=== PATIENT | male | born 1940 | race Caucasian/White ===

== ENCOUNTER 2017-04-18 16:05 | Emergency (ER) | payer BC, MEDICARE ==
[2017-04-18] MEDS ORDERED: Morphine INJ* 4 MG/ML 1 ML SYRINGE (NEW SYRINGE VERSION) IV ONE (17:03)
[2017-04-18] MEDS ORDERED: Diazepam TAB(*) 5 MG PO ONE ×2 (17:03→21:03)
[2017-04-18] MEDS ORDERED: predniSONE TAB* 20 MG PO ONE (17:21)
[2017-04-18] MEDS ORDERED: oxyCODONE/Acetamin 5/325 MG* TAB PO ONE ×2 (17:25→21:02)
[2017-04-18 17:27] LABS: Hematocrit 42 % (42-52); Hemoglobin 14.4 g/dl (14.0-18.0); INR 1.25 (0.77-1.02); Mean Corpuscular HGB Conc 34 g/dl (31-36); Mean Corpuscular Hemoglobin 33 pg (27-31); Mean Corpuscular Volume 97 fL (80-94); Mean Platelet Volume 7 um3 (7.4-10.4); Platelet Count 317 10^3/ul (150-450); Red Blood Count 4.37 10^6/ul (4.0-5.4); Red Cell Distribution Width 14 % (10.5-15); White Blood Count 24.7 10^3/ul (3.5-10.8)
[2017-04-18 18:00] LABS: ABS Basophils 0.1 10^3/ul (0-0.2); ABS Eosinophils 0 10^3/ul (0-0.6); ABS Lymphocytes 0.4 10^3/ul (1.0-4.8); ABS Monocytes 2.4 10^3/ul (0-0.8); ABS Neutrophils 21.9 10^3/ul (1.5-7.7); ABS Nucleated RBC 0 10^3/ul; Eosinophil % 0 % (0-6); Lymphocyte % 1.6 % (25-47); Nucleated Red Blood Cells % 0.1
[2017-04-18 18:40] LABS: Urine Appearance Cloudy; Urine Blood Negative (Negative); Urine Color Amber; Urine Ketones Negative (Negative); Urine Protein 2+(100 mg/dL) (Negative); Urine Specific Gravity 1.024 (1.010-1.030); Urine Urobilinogen Positive (Negative)
[2017-04-18] MEDS ORDERED: oxyCODONE/Acetamin 5/325 MG* TAB ONE (21:04)
[2017-04-18] MEDS ORDERED: Diazepam TAB(*) 5 MG ONE (21:05)
[2017-04-18 21:07] VITALS: BP 120/59
--- NOTE | 2017-04-18 23:20 | ED ---
Jay Ceballos Stephanie, scribed for Binta Pantoja MD on 04/18/17 at 1657 . Back Pain - HPI Summary HPI Summary: The pt is a 76 y/o M presenting to the ED with c/o back pain that began on . Symptoms include LE weakness. The pt had MRI done on Wednesday for back pain by Dr Serrano. The pt fell on ice 4 weeks ago. The pt was on steroids since 04/15. - History of Current Complaint Chief Complaint: EDBackInjuryPain Stated Complaint: BACK PAIN Time Seen by Provider: 04/18/17 16:14 Hx Obtained From: Patient Onset/Duration: Gradual Onset, Lasting Days, Still Present Onset/Duration: Started Days Ago Timing: Constant Severity Currently: Severe Pain Intensity: 9 Pain Scale Used: 0-10 Numeric Aggravating Symptom(s): Movement Alleviating Symptom(s): Nothing - Allergies/Home Medications Allergies/Adverse Reactions: Allergies Allergy/AdvReac Type Severity Reaction Status Date / Time amoxicillin Allergy Intermediate Rash Verified 04/18/17 16:24 celecoxib [From Celebrex] Allergy Intermediate Rash Verified 04/18/17 16:24 latex Allergy Intermediate Rash Verified 04/18/17 16:24 Home Medications: Home Medications Amlodipine Besylate [Norvasc 10 mg tab] 10 mg PO DAILY 04/18/17 [History Confirmed 04/18/17] Multivitamin [Multivitamins] 1 cap PO DAILY 04/18/17 [History Confirmed 04/18/17 ] Nebivolol (NF) [Bystolic (NF)] 10 mg PO QAM 04/18/17 [History Confirmed 04/18/17 ] Potassium Chloride [Klor-Con M20] 20 meq PO BID 04/18/17 [History Confirmed ] diPHENhydraMINE PO* [Benadryl PO 25 MG TAB*] 25 mg PO BEDTIME PRN 04/18/17 [ History Confirmed 04/18/17] PMH/Surg Hx/FS Hx/Imm Hx Previously Healthy: No - Impotence of organic origin Endocrine/Hematology History: Reports: Hx Anticoagulant Therapy Denies: Hx Diabetes Cardiovascular History: Reports: Hx Hypercholesterolemia, Hx Hypertension Denies: Hx Pacemaker/ICD Respiratory History: Reports: Hx Sleep Apnea - witnessed, not diagnosed Denies: Hx Chronic Obstructive Pulmonary Disease (COPD) GI History: Reports: Hx Diverticulosis - colon resection-- 6 yrs ago, Other GI Disorders - HX OF COLECTOMY X 2 FOR RUPTURED INTESTINES AND 1 FOR CANCER, History: Denies: Hx Dialysis, Hx Kidney Stones, Hx Renal Disease Musculoskeletal History: Reports: Hx Arthritis - LEFT KNEE, LEFT HIP REPLACEMENT , RIGHT HIP ARTHRITIS, right hip 07/11 arthro Sensory History: Reports: Hx Cataracts - BILATERAL, Hx Contacts or Glasses - READING GLASSES Denies: Hx Hearing Aid Opthamlomology History: Reports: Hx Cataracts - BILATERAL, Hx Contacts or Glasses - READING GLASSES Neurological History: Reports: Other Neuro Impairments/Disorders - CLAUSTAPHOBIC Denies: Hx Dementia, Hx Seizures Psychiatric History: Reports: Other Psychiatric Issues/Disorders - CLAUSTAPHOBIC Denies: Hx Panic Disorder - Cancer History Cancer Type, Location and Year: colon mass with resection--?2006 Hx Chemotherapy: No Hx Radiation Therapy: No - Surgical History Surgery Procedure, Year, and Place: 2006? [place] [facility] [place] [facility] 2007 LEFT HIP REPLACEMENT, [facility]. RIGHT HAND SURGERY TRIGGER FINGER [place] CARPAL TUNNEL [place] [facility] [place] hip replace 06/2012. 06/2012 right hip replacement [facility]. LAPAROS[place]IC [place] [facility] [place] [facility] [place] BILATERAL CATARACT SURGERY WITH IOL IMPLANTS Hx Anesthesia Reactions: No Infectious Disease History: No Infectious Disease History: Denies: Traveled Outside the [place] in Last 30 Days - Family History Known Family History: Positive: Other - stroke, [place] - Social History Occupation: Retired Lives: With Family Alcohol Use: Daily Alcohol Amount: a few beers a day Substance Use Type: Reports: None Smoking Status (MU): Never Smoked Tobacco - Additional Comments History Additional Comments: benighn prostatic hypertrophy without outflow obstruction, pure hypercholesterolemia, impaired fasting glycaemia, bleeding diverticulosis, hx of malignant neoplasm of rectum, benign essential HTN, gout, basal cell carcinoma of skin of other parts of face Review of Systems Negative: Fever Positive: Other - back pain, LE weakness All Other Systems Reviewed And Are Negative: Yes Physical Exam - Summary Physical Exam Summary: Appearance: Ill-appearing, moderate pain distress, Well-nourished Skin: Warm, color reflects adequate perfusion Head: Normal Head/Face inspection Eyes: Conjunctiva clear ENT: Normal inspection Neck: Supple, no nodes, no JVD. Respiratory: Lungs clear, Normal breath sounds, no respiratory distress Cardio: RRR, No murmur, pulses normal, brisk capillary refill Abdomen: soft, nontender Bowel sounds: present Musculoskeletal: Strength Intact/ ROM intact. No calf tenderness. No edema. , pain in lower back Neuro: Alert, muscle tone normal, facial symmetry, speech normal, sensory/motor intact, unsteady on feet, absent reflexes in knees Psychological: Normal Triage Information Reviewed: Yes Vital Signs On Initial Exam: Initial Vitals Temp Pulse Resp BP Pulse Ox 99.3 F 66 14 152/73 96 04/18/17 16:17 04/18/17 16:17 04/18/17 16:17 04/18/17 16:17 04/18/17 16:17 Vital Signs Reviewed: Yes Diagnostics - Vital Signs Vital Signs Temp Pulse Resp BP Pulse Ox 04/18/17 16:17 99.3 F 66 14 152/73 96 - Laboratory Result Diagrams: 04/18/17 17:12 Lab Statement: Any lab studies that have been ordered have been reviewed, and results considered in the medical decision making process. Back Pain Course/Dx - Diagnoses Provider Diagnoses: Lumbar spinal stenosis Discharge - Discharge Plan Condition: Stable Disposition: HOME Prescriptions: Diazepam TAB(*) [Valium TAB(*)] 5 mg PO Q6H PRN #12 tab MDD 4 PRN Reason: Pain methylPREDNISolone [Medrol] 4 mg PO .SEE GRACE INSTRUCTION #1 tab.ds.pk oxyCODONE/Acetamin 5/325 MG* [Percocet 5/325 TAB*] 1 tab PO Q4H PRN #18 tab MDD 6 PRN Reason: Pain Patient Education Materials: Lumbar Spinal Stenosis (ED) Referrals: Manuel Rao MD [Primary Care Provider] - 3 Days Additional Instructions: We gave you percocet 5/325mg, valium 5mg and prednisone 60mg while you were in the ER with relief of your symptoms. We gave you a copy of your labs. Your white blood cell count is very elevated. RETURN TO THE ER FOR ANY NEW OR WORSENING SYMPTOMS The documentation as recorded by the Jay carter Stephanie accurately reflects the service I personally performed and the decisions made by , Binta Pantoja MD.
== END 2017-04-18 21:13 | disposition home or self-care (01) ==
LOC: ED 16:05
DX: M48.061 Spinal stenosis, lumbar region without neurogenic claudication (principal); Z88.3 Allergy status to other anti-infective agents
CPT/HCPCS: 36415; 81003; 81015; 83735; 85025; 85610; 86140; 99283; A9270-GY; J7512

== ENCOUNTER 2017-04-21 04:20 | Inpatient (IN) | payer BC, MEDICARE ==
[2017-04-21] MEDS ORDERED: Vancomycin(*) 1,000 MG in NS 0.9% 250 ML* 250 ML IVPB ONE ×3 (04:55→16:00)
[2017-04-21] MEDS ORDERED: fentaNYL* 50 MCG/ML 2 ML VIAL (100 MCG VIAL) IV SLOW PU ONE ×3 (04:55→11:14)
[2017-04-21] MEDS ORDERED: Diazepam SYRINGE* 5 MG/ML 2 ML SYRINGE (10 MG total) IV ONE (04:55)
[2017-04-21] MEDS ORDERED: Ondansetron INJ* 2 MG/ML VIAL IV ONE (04:55)
[2017-04-21] MEDS ORDERED: Acetaminophen TAB* 325 MG PO ONE (04:56)
[2017-04-21 05:02] LABS: Hematocrit 44 % (42-52); Hemoglobin 14.8 g/dl (14.0-18.0); Mean Corpuscular HGB Conc 34 g/dl (31-36); Mean Corpuscular Hemoglobin 33 pg (27-31); Mean Corpuscular Volume 97 fL (80-94); Mean Platelet Volume 8 um3 (7.4-10.4); Platelet Count 384 10^3/ul (150-450); Red Blood Count 4.53 10^6/ul (4.0-5.4); Red Cell Distribution Width 15 % (10.5-15); White Blood Count 33.1 10^3/ul (3.5-10.8)
[2017-04-21] MEDS ORDERED: NS 0.9% 250 ML* 250 ML ONE (05:08)
[2017-04-21 05:13] LABS: INR 1.24 (0.77-1.02)
[2017-04-21 05:15] LABS: EGFR Non-African American 83.6 (>60)
[2017-04-21] MEDS ORDERED: Hydrocortisone INJ* 100 MG VIAL IV ONE (05:33)
[2017-04-21 05:34] LABS: ABS Basophils 0 10^3/ul (0-0.2); ABS Eosinophils 0 10^3/ul (0-0.6); ABS Lymphocytes 0.5 10^3/ul (1.0-4.8); ABS Neutrophils 30.5 10^3/ul (1.5-7.7); ABS Nucleated RBC 0 10^3/ul; Eosinophil % 0 % (0-6); Lymphocyte % 1.4 % (25-47); Nucleated Red Blood Cells % 0
[2017-04-21] MEDS: NS 0.9% 1000 ML* 2,000 ML IV ONE ×2 (05:34→06:25)
[2017-04-21] MEDS ORDERED: cefTRIAXone(*) 2 GM in NS 0.9% 100 ML* 100 ML IVPB ONE (05:38)
[2017-04-21] MEDS ORDERED: Diazepam INJ (NF) 5 MG/ML 10 ML VIAL (50 MG TOTAL) IV ONE (06:00)
[2017-04-21] MEDS ORDERED: Vancomycin(*) 1,000 MG BAG/ADDV IVPB ONE (06:14)
[2017-04-21] MEDS ORDERED: fentaNYL* 50 MCG/ML 2 ML VIAL (100 MCG VIAL) ONE (06:48)
--- NOTE | 2017-04-21 06:59 | ED ---
Jose Ceballos Angela, scribed for Francisca Lake MD on 04/21/17 at 0451 . Back Pain - HPI Summary HPI Summary: This pt is a 76 y/o male presenting to [facility] c/o back pain x6 days, worse today. He notes his pain radiates down both legs. Today since supper time pt was not able to walk secondary to pain. denies urinary or bowel dysfunction , fever, chills, weakness in LE. He is currently on diazepam, Prednisone (2nd day yesterday), and Percocet. Pt notes he has no pain relief from these medications. Pt was in the ED 3 days ago for the same and had an IV on right arm. He notes his right arm is now painful and swollen. Pt walked with a walker slowly yesterday to Dr. Melendrez's office for an appointment. He is going to be scheduled for 2 MRIs and an XR. PMHx: basal cell CA. Temperature in the ED was 100.8 F. - History of Current Complaint Stated Complaint: BACK PAIN Time Seen by Provider: 04/21/17 04:22 Hx Obtained From: Patient Onset/Duration: Lasting Days, Still Present Onset/Duration: Started Days Ago, Still Present Timing: Constant, Lasting Days Back Pain Location: Is Discrete @ - back pain Severity Currently: Severe Pain Intensity: 10 Pain Scale Used: 0-10 Numeric Aggravating Symptom(s): Movement, Walking Associated Signs And Symptoms: Negative: Weakness, Abdominal Pain, Bladder Incontinence, Bowel Incontinence - Allergies/Home Medications Allergies/Adverse Reactions: Allergies Allergy/AdvReac Type Severity Reaction Status Date / Time amoxicillin Allergy Intermediate Rash Verified 04/21/17 04:54 celecoxib [From Celebrex] Allergy Intermediate Rash Verified 04/21/17 04:54 latex Allergy Intermediate Rash Verified 04/21/17 04:54 Home Medications: Home Medications Lovastatin(NF) [Mevacor(NF)] 20 mg PO 1700 04/21/17 [History Confirmed 04/21/17] PMH/Surg Hx/FS Hx/Imm Hx Endocrine/Hematology History: Reports: Hx Anticoagulant Therapy Denies: Hx Diabetes Cardiovascular History: Reports: Hx Hypercholesterolemia, Hx Hypertension Denies: Hx Pacemaker/ICD Respiratory History: Reports: Hx Sleep Apnea - witnessed, not diagnosed Denies: Hx Chronic Obstructive Pulmonary Disease (COPD) GI History: Reports: Hx Diverticulosis - colon resection-- 6 yrs ago, Other GI Disorders - HX OF COLECTOMY X 2 FOR RUPTURED INTESTINES AND 1 FOR CANCER, History: Denies: Hx Dialysis, Hx Kidney Stones, Hx Renal Disease Musculoskeletal History: Reports: Hx Arthritis - LEFT KNEE, LEFT HIP REPLACEMENT , RIGHT HIP ARTHRITIS, right hip 07/11 arthro Sensory History: Reports: Hx Cataracts - BILATERAL, Hx Contacts or Glasses - READING GLASSES Denies: Hx Hearing Aid Opthamlomology History: Reports: Hx Cataracts - BILATERAL, Hx Contacts or Glasses - READING GLASSES Neurological History: Reports: Other Neuro Impairments/Disorders - CLAUSTAPHOBIC Denies: Hx Dementia, Hx Seizures Psychiatric History: Reports: Other Psychiatric Issues/Disorders - CLAUSTAPHOBIC Denies: Hx Panic Disorder - Cancer History Cancer Type, Location and Year: colon mass with resection--?2006. basal cell carcinoma of skin Hx Chemotherapy: No Hx Radiation Therapy: No - Surgical History Surgery Procedure, Year, and Place: 2006? COLON RESECTION, [facility] [place]. 2005 LEFT KNEE REPLACEMENT, [facility] [place]. 2007 LEFT HIP REPLACEMENT, [facility] [place]. RIGHT HAND SURGERY TRIGGER FINGER AND CARPAL TUNNEL RELEASE, [facility] [place]. right hip replace 06/2012. 06/2012 right hip replacement [facility]. LAPAROSCOPIC CHOLECYSTECTOMY, [facility] [place]. 2ND COLON RESECTION, [facility] [place]. 05/2012 BILATERAL CATARACT SURGERY WITH IOL IMPLANTS Hx Anesthesia Reactions: No - Family History Known Family History: Positive: Other - stroke, [place] - Social History Alcohol Use: Daily Alcohol Amount: a few beers a day Substance Use Type: Reports: None Smoking Status (MU): Never Smoked Tobacco Review of Systems Positive: Fever. Negative: Chills Eyes: Negative ENT: Negative Cardiovascular: Negative Negative: incontinence Musculoskeletal: Other - back pain radiating down both legs, right arm pain Negative: Weakness All Other Systems Reviewed And Are Negative: Yes Physical Exam - Summary Physical Exam Summary: VITAL SIGNS: Reviewed. GENERAL: Patient is a well-developed and nourished male who is lying comfortable in the stretcher. Patient is not in any acute respiratory distress. HEAD AND FACE: No signs of trauma. No ecchymosis, hematomas or skull depressions. No sinus tenderness. EYES: PERRLA, EOMI x 2, No injected conjunctiva, no nystagmus. EARS: Hearing grossly intact. Ear canals and tympanic membranes are within normal limits. MOUTH: Oropharynx within normal limits. NECK: Supple, trachea is midline, no adenopathy, no JVD, no carotid bruit, no c- spine tenderness, neck with full ROM. CHEST: Symmetric, no tenderness at palpation LUNGS: Clear to auscultation bilaterally. No wheezing or crackles. CVS: Regular rate and rhythm, S1 and S2 present, no murmurs or gallops appreciated. ABDOMEN: Soft, non-tender. No signs of distention. No rebound no guarding, and no masses palpated. Bowel sounds are normal. MSK: No cyanosis or clubbing. RUE: Tender and swollen area over the right upper arm medially consistent with cellulitis. There is lumbosacral tenderness. Pt is unable to move legs secondary to pain. NEURO: Alert and oriented x 3. Neurological exam is grossly intact. No acute neurological deficits. Speech is normal and follows commands. SKIN: Dry and warm Triage Information Reviewed: Yes Vital Signs Reviewed: Yes Diagnostics - Laboratory Result Diagrams: 04/21/17 04:40 04/21/17 04:40 Lab Statement: Any lab studies that have been ordered have been reviewed, and results considered in the medical decision making process. - Radiology Chest XR Xray Interpretation: Positive (See Comments) - Possible cardiomegaly. No acute process. Radiology Interpretation Completed By: ED Physician, Radiologist - pending official radiology report Back Pain Course/Dx - Course Course Of Treatment: Pt is a 76 y/o male who presents with back pain x6 days, worsening today. He notes his pain radiates down both legs. In the ED course, the pt was given IV fluids, Tylenol, valium, fentanyl, Zofran, vancomycin, Hydrocortisone, Rocephin. Labs show WBC of 33.1, BUN of 43, glucose of 167, AST of 63, ALT of 190. Chest XR shows possible cardiomegaly, no acute process. Pending offical radiology report. Pt will be signed out to Dr. Mccarthy, pending admission to the hospitalist. - Diagnoses Provider Diagnoses: Severe low back pain, Cellulitis of right upper arm Discharge - Discharge Plan Condition: Stable Disposition: OTHER Discharge Disposition Comment: sign out to Dr. Mccarthy, pending admission to the hospitalist. Referrals: Manuel Rao MD [Primary Care Provider] - The documentation as recorded by the Jose carter Angela accurately reflects the service I personally performed and the decisions made by me, Francisca Lake MD.
--- NOTE | 2017-04-21 08:22 | RAD ---
Indication: Fever. Shortness of breath. Comparison: July 23, 2012 Technique: Upright AP 0551 hours Report: Suboptimal inspiration with associated subsegmental atelectasis. Probable small dependent pleural effusions. Cardiomegaly. Mild prominence of interstitial markings. No gross abnormality of the central pulmonary vasculature however suboptimal inspiration limits assessment. Negative for pneumothorax. IMPRESSION: Hypoventilated exam with subsegmental atelectasis. Probable small pleural effusions. Inflammatory infiltrates at the lung bases are not entirely excluded on the basis of this exam. Cardiomegaly.
--- NOTE | 2017-04-21 08:34 | RAD ---
HISTORY: Right upper quadrant pain COMPARISONS: November 07, 2007 TECHNIQUE: Multiple transverse and longitudinal ultrasound images were obtained of the right upper quadrant of the abdomen using grayscale and color Doppler imaging. FINDINGS: LIVER: The liver is normal in shape, size, contour, and echogenicity. There are no focal parenchymal masses. There is normal hepatopedal flow of the portal vein on Doppler imaging. BILIARY TREE: There is no intrahepatic or extrahepatic biliary dilatation. The common duct measures 0.9 cm. GALLBLADDER: The patient is status post cholecystectomy. PANCREAS: The head of the pancreas is unremarkable. The tail of the pancreas is not well visualized secondary to overlying bowel gas. RIGHT KIDNEY: The right kidney is normal in shape, size, contour, and echogenicity. There is no hydronephrosis or nephrolithiasis. The right kidney measures 11.8 x 6.2 x 6.5 cm. AORTA AND IVC: The aorta and IVC are unremarkable. FLUID: There are no pleural effusions. There is no free fluid within the hepatorenal recess. OTHER FINDINGS: None. IMPRESSION: 1. STATUS POSTCHOLECYSTECTOMY. 2. THE COMMON DUCT IS ECTATIC MEASURING UP TO 0.9 CM. THERE IS NO INTRAHEPATIC BILIARY DILATATION.
--- NOTE | 2017-04-21 12:44 | RAD ---
Indication: Jaundice. Image sequences: Axial T2 fat sat, coronal T2, 3-D MRCP images of the biliary system was performed. Lung bases demonstrate atelectasis in the right lung base with small pleural effusions. Cardiomegaly without evidence pericardial effusion. Liver is normal in size. Common duct measures up to 7 mm likely due to postcholecystectomy state of the patient. No filling defects are noted. The pancreatic duct is normal in caliber. No abrupt termination is noted. The visualized abdominal organs are unremarkable. IMPRESSION: Prominent common duct likely due to postcholecystectomy state of the patient. Patient is status post cholecystectomy.
[2017-04-21] MEDS ORDERED: HYDROmorphone INJ* 1 MG/ML CARPUJECT SYRINGE IV ONE (13:12)
[2017-04-21] MEDS ORDERED: oxyCODONE/Acetamin 5/325 MG* TAB PO PRN (14:47)
[2017-04-21] MEDS ORDERED: Diazepam TAB(*) 5 MG PO PRN (14:50)
[2017-04-21] MEDS ORDERED: Acetaminophen TAB* 325 MG PO PRN (15:36)
[2017-04-21] MEDS ORDERED: Vancomycin per Pharmacy* NOTE FOLLOW UP PRN (15:38)
[2017-04-21] MEDS ORDERED: Gadoteridol* (CONTRAST) 279.3 MG/ML 10 ML IV ONE (15:38)
--- NOTE | 2017-04-21 16:00 | RAD ---
INDICATION: Confusion COMPARISON: CT brain July 18, 2012 TECHNIQUE: Noncontrast axial source images were acquired from the skull base to the vertex. FINDINGS: Ventricles/sulci: There is cortical atrophy with compensatory dilatation of the CSF spaces. Brain parenchyma: There is periventricular and subcortical white matter change compatible with chronic ischemia. Intracranial hemorrhage:None. Extra-axial spaces: There are no abnormal extra axial fluid collections or evidence of extra-axial mass. Calvarium: There is no calvarial fracture or other calvarial abnormality. Scalp: There is no evidence of scalp or extracalvarial soft tissue abnormality. Paranasal sinuses/mastoid: The paranasal sinuses and mastoid air cells are clear. Other: None. IMPRESSION: No acute intracranial findings
[2017-04-21 16:13] LABS: EGFR Non-African American 124.5 (>60)
[2017-04-21] MEDS: HYDROmorphone INJ* 2 MG/ML CARPUJECT SYRINGE IV SLOW PU PRN (16:27)
[2017-04-21] MEDS: NS 0.9% 1000 ML* 1,000 ML IV SCH (16:27)
[2017-04-21] MEDS: methylPREDNISolone SOD 40 MG* 1 ML VIAL IV SCH (16:28)
--- NOTE | 2017-04-21 18:12 | ED ---
Tucker, Lolly Valles, scribed for Romario Mccarthy MD on 04/21/17 at 0839 . Progress - Progress Note Progress Note: The patient is a sign out from Dr. Lake pending admission by hospitalist. Abdominal Ultrasound. Interpreted by a radiologist. IMPRESSION: 1. STATUS POSTCHOLECYSTECTOMY. 2. THE COMMON DUCT IS ECTATIC MEASURING UP TO 0.9 CM. THERE IS NO INTRAHEPATIC BILIARY DILATATION. Dr. Mccarthy has reviewed this report. Cholangiopancreatography MRI. Interpreted by a radiologist. IMPRESSION: Prominent common duct likely due to postcholecystectomy state of the patient. Patient is status post cholecystectomy. Dr. Mccarthy has reviewed this report. Course/Dx - Course Course Of Treatment: Pt is a 76 y/o male who presents with back pain x6 days, worsening today. He notes his pain radiates down both legs. In the ED course, the pt was given IV fluids, Tylenol, valium, fentanyl, Zofran, vancomycin, Hydrocortisone, Rocephin. Labs show WBC of 33.1, BUN of 43, glucose of 167, AST of 63, ALT of 190. Chest XR shows possible cardiomegaly, no acute process. Abdominal US shows 1. STATUS POSTCHOLECYSTECTOMY. 2. THE COMMON DUCT IS ECTATIC MEASURING UP TO 0.9 CM. THERE IS NO INTRAHEPATIC BILIARY DILATATION. Cholangiopancreatography MRI showed prominent common duct likely due to postcholecystectomy state of the patient. Pt is diagnosed with Intractable back pain and Elevated transaminase level. When I evaluated Mr. Bonilla at 0715, he was C/O low back pain mostly. He did admit to some abdominal pain and had some diffuse tenderness and I was concerned about his transaminase elevations and elevated bilirubin. If he had a common bile duct stone, he would need to be transferred as we cannot get a ERCP here. U/S was obtained and showed only a mildly dilated duct. I spoke with Dr. Matias from GI who recommended an MRCP. That was also negative so the hospitalist service was contacted for admission. - Diagnoses Provider Diagnoses: Intractable back pain, Elevated transaminase level The documentation as recorded by the Hai carter Jennifer accurately reflects the service I personally performed and the decisions made by me, Romario Mccarthy MD.
[2017-04-21] MEDS ORDERED: Zosyn per Pharmacy* NOTE FOLLOW UP PRN (18:32)
--- NOTE | 2017-04-21 20:49 | RAD ---
HISTORY: Low back pain, sepsis, rule out epidural abscess COMPARISONS: None TECHNIQUE: The following sequences were obtained of the thoracic spine: Sagittal and axial T1- and T2-weighted images, coronal T2-weighted images, and sagittal STIR images. Additionally, axial and sagittal T1 weighted images were obtained after contrast enhancement with a gadolinium-based intravenous contrast agent.. FINDINGS: The study is limited by patient motion artifact. Localization is based on counting from C2 SPINAL CORD, CONUS, AND CAUDA EQUINA: There is a posterior epidural fluid collection extending from the cervical spine, at approximately C6-C7 based on the localizing images, inferiorly through to the lumbar spine further described on the MRI of the lumbar spine. This is peripherally enhancing and measures up to 0.6 cm in depth and is most consistent with a large epidural abscess. This results in mild to moderate narrowing of the central canal diffusely. ALIGNMENT: The alignment is normal. VERTEBRAL BODIES: There is multilevel anterolateral marginal osteophyte formation. There is Modic type II reactive endplate changes at T6-T7 and T10-T11. JOINTS: There is enhancement along the costovertebral articulations on the left at T10-T11 and T11-T12. There is osteoporosis of the costovertebral articulations. MUSCULATURE: There is moderate fatty infiltration INTERVERTEBRAL DISCS: There is diffuse loss of intervertebral disc height and T2 signal throughout the spine. AXIAL IMAGES: As noted above, there is fusiform narrowing of the central canal secondary to the posterior epidural fluid collection. SOFT TISSUES: The visualized soft tissues of the chest and upper abdomen are unremarkable. OTHER: None. IMPRESSION: 1. THERE IS A POSTERIOR EPIDURAL ABSCESS EXTENDING FROM THE LOWER CERVICAL SPINE THROUGHOUT THE THORACIC SPINE, RESULTING IN MILD TO MODERATE NARROWING OF THE CENTRAL CANAL DIFFUSELY. 2. THERE ARE NO FINDINGS TO SUGGEST VERTEBRAL BODY OSTEOMYELITIS/DISCITIS. THERE IS ENHANCEMENT OF THE COSTOVERTEBRAL ARTICULATIONS ON THE LEFT AT T8 10-11 AND T11-T12 WHICH MAY INDICATE A SEPTIC ARTHRITIS A SOURCE OF EPIDURAL ABSCESS. THIS IS ALSO SUPPORTED BY THE POSTERIOR CONFIGURATION OF THE ABSCESS.
--- NOTE | 2017-04-21 20:56 | RAD ---
HISTORY: Back pain, sepsis, rule out abscess COMPARISONS: MRI of the thoracic spine dated April 21, 2017, MRI of the lumbar spine dated April 16, 2017 TECHNIQUE: The following sequences were obtained of the lumbar spine: Sagittal and axial T1- and T2-weighted images, coronal T2-weighted images, and sagittal STIR images. Additionally, axial and sagittal T1 weighted images were obtained after contrast enhancement with a gadolinium-based intravenous contrast agent.. FINDINGS: SPINAL CORD, CONUS, AND CAUDA EQUINA: As noted on the thoracic spine MRI, there is a epidural fluid collection along the posterior lateral aspect of the central canal. Additionally at the level of L1-L4, there is an anterior collection that is also peripheral enhancing. This results in fusiform moderate to severe narrowing of the central canal. ALIGNMENT: The alignment is normal. VERTEBRAL BODIES: There is multilevel anterolateral marginal osteophyte formation. There are mixed Modic type I and type II reactive endplate changes. JOINTS: There is diffuse facet osteoarthritis. There is enhancement and edema along the facet joints, most pronounced at L4-L5 and L5-S1 bilaterally. MUSCULATURE: There is moderate fatty infiltration. INTERVERTEBRAL DISCS: There is diffuse loss of intervertebral disc height and T2 signal throughout the spine. AXIAL IMAGES: As noted above, there is fusiform narrowing of the central canal secondary to the epidural fluid collections resulting in diffuse moderate to severe narrowing of the central canal. There is moderate to severe bilateral neural foraminal narrowing at L3-L4, L4-L5, and L5-S1 secondary to facet osteoarthritis. SOFT TISSUES: There is heterogeneous enhancement and edema of the multifidus muscles at L4-L5. OTHER: None. IMPRESSION: 1. NOTED ON THE MRI OF THE THORACIC SPINE, THERE THERE IS AN EPIDURAL FLUID COLLECTION MOST CONSISTENT WITH EPIDURAL ENHANCEMENT. IN THE LUMBAR SPINE, THE EPIDURAL COLLECTION HAS COMPONENTS BOTH ANTERIOR AND POSTERIOR, RESULTING IN FUSIFORM MODERATE TO SEVERE NARROWING OF THE CENTRAL CANAL. 2. ADDITIONALLY, THERE IS ENHANCEMENT AND EDEMA OF THE FACET JOINTS AT L4-L5 AND L5-S1, WITH HETEROGENEOUS ENHANCEMENT OF THE MULTIPURPOSE MUSCLES AT THE ACCOMPANYING LEVELS. THIS AGAIN SUGGESTS A MULTIFOCAL SEPTIC ARTHRITIS THE SOURCE OF INFECTION WITH ASSOCIATED CELLULITIS/PHLEGMON OF THE PARASPINAL MUSCULATURE. THERE ARE NO FINDINGS TO SUGGEST DISCITIS THE SOURCE OF INFECTION ON THE CURRENT EXAMINATION.
--- NOTE | 2017-04-21 21:41 | HP ---
CC: Dr. Rao; Dr. Melendrez, Neurosurgery * HISTORY AND PHYSICAL: DATE OF ADMISSION: 04/21/17 PRIMARY CARE PROVIDER: Dr. Rao. CHIEF COMPLAINT: Lower back pain. HISTORY OF PRESENT ILLNESS: Sandeep Bonilla is a 76-year-old male with a history of hypertension and gout who has had problems with lower back pain for the past week and a half. On 04/18/17, he was seen in the emergency department and was noted to have sciatica for which he was prescribed Medrol Dosepak, Percocet, Valium. During that time, he was also noted to have WBC level of 24,000. His C -reactive protein level at that point was 112. Please note that Dr. Melendrez saw the patient for a followup yesterday and ordered an additional MRI. The patient had done one of the MRIs on 04/16/17, which showed degenerative disk disease and severe spinal canal narrowing at the L3-L4 level. There was also severe spinal canal narrowing at L4- L5 level. The patient's complains of severe sharp pain localized in the middle of his back in the upper lumbar area radiating to the back of the bilateral legs. He had been lying in bed for the past several days, unable to get up due to severe muscle spasms and lower back pain. He has had no problems with bowel or bladder incontinence. His last bowel movement was a day ago and he had been urinating without any problems. He also had noticed some discomfort in the epigastric region in the past day. The noted that after he was started on Percocet and diazepam, he got confused for the past 3 days. Today, the patient's noted that his right arm where the IV was from , it was red and swollen and the patient developed a fever of 101 degrees. The patient is going to be admitted with a diagnosis of sepsis, lower back pain , to rule out epidural abscess. PAST MEDICAL HISTORY: 1. Hypertension. 2. History of partial colon resection due to GI bleed. 3. History of GI bleed in 2012, while on Coumadin after hip replacement. 4. History of gout. 5. History of right total hip arthroplasty in 2012. 6. History of left knee replacement. 7. History of left hip replacement. 8. History of right hand surgery. 9. Cataract surgery bilaterally. 10. Status post cholecystectomy. CURRENT MEDICATIONS: Include: 1. Norvasc 10 mg daily. 2. Multivitamin 1 tablet daily. 3. Allopurinol 100 mg daily. 4. Lovastatin 20 mg daily. 5. Diazepam 5 mg every 6 hours p.r.n. 6. Benadryl 25 mg at bedtime p.r.n. 7. Potassium chloride 20 mEq b.i.d. 8. Bystolic 10 mg daily. 9. Percocet on a p.r.n. basis every 6 hours. 10. Medrol Dosepak. Currently, the patient is on 4 mg 4 times a day dose. ALLERGIES: AMOXICILLIN, CELECOXIB, and LATEX. FAMILY HISTORY: Mother of old age at the age of 85. Father at the age of 49 secondary to CT. SOCIAL HISTORY: The patient lives with his , who is his surrogate. He stopped smoking in 1970. He drinks 4 to 5 beers on a daily basis, has not drunk in the past couple of days due to lower back pain. REVIEW OF SYSTEMS: Please see history of present illness. All the remaining 12 systems were reviewed with the patient and patient's and were otherwise negative. Please also note that patient is a rather poor historian due to sedation just receiving a dose of Dilaudid. PHYSICAL EXAMINATION GENERAL: The patient is a very pleasant 76-year-old male, who appears flushed and diaphoretic. The patient is mildly confused and wants to be brought into his own bed. Occasionally, he is asking me where he was, but later on he is able to be re- oriented and then he remembers that he is in the hospital. He is aware of his age and recognizes his in the room. He is a poor historian. VITAL SIGNS: Blood pressure of 158/76, heart rate of 86 and regular, respiratory rate 20, oxygen saturation 92% on 2 L of oxygen nasal cannula. Temperature max of 100.8 degrees during the ED evaluation. HEENT: Head: Atraumatic, normocephalic. Eyes: Pupils equal, round, and reactive to light and accommodation. Oropharynx clear. Mucosa moist. NECK: Supple. No JVD. No bruits bilaterally. RESPIRATORY: Clear to auscultation bilaterally. CARDIOVASCULAR: Regular rate and rhythm. No murmur. ABDOMEN: Soft and nontender. Bowel sounds present in all 4 quadrants. EXTREMITIES: There is no edema. Pulses +2 bilaterally. No clubbing, cyanosis. On evaluation of the right antecubital area, there is swelling noted probably from an IV infiltration in the past with slight erythema and increased warmth. There is also an ecchymotic area in the antecubital area on the right. NEUROLOGIC: Speech clear. Cranial nerves II through XII grossly intact. Motor strength is 5/5 bilaterally in upper extremities. The patient is unable to flex his hips past approximately 10 degrees due to severe pain elicited and radiating to the back of his legs. He is also refusing to roll back on his side due to severe pain. Sensation is intact. SKIN: The patient has an eschar covered lesion of approximately 2 cm on his right forehead that he stated had been followed by a referral coordinator and is scheduled for excision. I suspect this is basal cell carcinoma. PSYCHIATRIC EVALUATION: Occasionally disoriented, then able to be re-oriented. Poor historian. Oriented x2, no evidence of anxiety or depression. LABORATORY DATA: Showed sodium of 133, potassium of 4.1, chloride 98, carbon dioxide 25, BUN 42, creatinine 0.48. Liver function test showed total bilirubin of 3.4, AST of 63, ALT of 190, alkaline phosphatase of 145. C- reactive protein was noted to be 112 on 04/18/17. Lipase of 28. CBC: White cell count of 33.1, hemoglobin of 14.8, hematocrit of 44, platelets of 384. The differential includes 92% of neutrophils. MRCP of the common bile duct showed "prominent common bile duct likely due to post cholecystectomy state in the patient. The patient is status post cholecystectomy." Abdominal ultrasound, impression: "Status post cholecystectomy. The common bile duct is ectatic measuring up to 0.9 cm. There was no intrahepatic biliary dilatation." Lumbar spine MRI obtained on 04/16/17, impression: "Diffuse degenerative disk disease and facet osteoarthritis giving rise to mild to moderate spinal canal narrowing at the L1-L2 level. Moderate spinal canal narrowing at the L2-L3 level. Moderate to severe spinal canal narrowing at L3-L4 level and severe spinal canal narrowing at the L4-L5 level." Portable chest x-ray obtained today showed "hypoventilating exam with subsegmental atelectasis, probable small pleural effusions, inflammatory infiltrates at the lung bases are not entirely excluded on the basis of this exam. Cardiomegaly." Urinalysis was obtained on 04/18/17 and that showed +2 wbc's, but absent bacteria and urine cultures at that point were not obtained. Repeat urinalysis is pending at the time of the dictation. ASSESSMENT AND PLAN: 1. Worsening confusion, marked leukocytosis and fever in a patient whose C- reactive protein just 3 days ago was already 112. The patient also has elevated liver function test and worsening of his chronic lower back pain. At this point, the patient is septic with elevation of liver function tests meeting SOFA criteria. The differential is broad and includes possibility of cholangitis in this patient although his MRCP is unremarkable. He does have a mild epigastric tenderness on palpation of his abdomen, although he is very difficult to be evaluated due to that he has gotten multiple doses of narcotics and anxiolytics in the emergency department during his ER stay. It is possible that he passed common bile duct stone. The other differential is possibility of epidural abscess and sepsis due to that. At this point, I am going to ask Dr. Melendrez from Neurosurgery to see the patient in consultation. We will probably obtain an MRI of the lumbar spine with contrast at this point to rule out epidural abscess. He is going to be placed on empiric coverage with vancomycin and ceftriaxone. It is also fairly possible that patient was septic from bacteremia and that a swollen and infiltrated right antecubital fossa may have been actually a source of infection. That is why vancomycin is going to be used. Blood cultures were obtained today, but they were not obtained on when the patient was seen in the emergency department originally with elevated CRP. We may need to involve an Infectious Disease specialist to help in the near future. 2. In regards to the patient's hypertension, he had been actually hemodynamically stable and he is going to be continued on his outpatient amlodipine. 3. The patient had been on Medrol Dosepak due to severe pain and that he may be septic, I would prefer not to discontinue the steroids abruptly. I will place him on Solu-Medrol 40 mg every 12 hours and try to wean patient off the steroids in the near future. 4. In regards to degenerative disk disease and possibility of epidural abscess , Dr. Mleendrez will see the patient in consultation. 5. For DVT prophylaxis, the patient is going to be placed on heparin subcutaneously. TIME SPENT: Approximately 75 minutes were spent on admission of this patient, more than half that time was spent [id number] with the patient during the interview and physical exam. [id number]/[facility] #: [id number] JOCELYN
[2017-04-21] MEDS: Potassium Chlor TAB* 20 MEQ TAB.ER PO SCH (21:46)
[2017-04-21] MEDS ORDERED: Heparin VIAL(*) 5000 UNITS/ML VIAL (FIVE THOUSAND) SUBCUT SCH (22:00)
--- NOTE | 2017-04-21 22:22 | PN ---
Progress Note - Progress Note Date of Service: 04/21/17 Note: Radiology called reporting extensive thoracolumbar epidural abscess on MRI. Patient on vancomycin, piperacillin/tazobactam. Has received steroids in ED. Dr Pete MD neurosurgery apprised and is in house to evaluate patient. Plans multi-level decompressive laminectomy in the AM. Will make NPO & evaluate for surgical optimization. Vitals stable. Mr Bonilla has no active chest or respiratory complaint. His vitals are stable. He has been evaluated by orthopedics who do not feel there is any joint involvement. His required epidural abscess surgery is emergent and no further work up is needed. He is considered a high risk patient whose benefits of the procedure outweigh the risks.
[2017-04-21] MEDS ORDERED: LORazepam INJ* 2 MG/ML 1 ML VIAL IV PUSH SCH (23:45)
[2017-04-22] MEDS ORDERED: ZOSYN 3.375 GM Q8H per EXTENDED INFUSION IVPB SCH ×2
[2017-04-22] MEDS ORDERED: Vancomycin(*) 1,000 MG in NS 0.9% 250 ML* 250 ML IVPB SCH ×2
[2017-04-22] MEDS: HYDROmorphone INJ* 2 MG/ML CARPUJECT SYRINGE IV SLOW PU PRN ×2 (00:09→04:12)
[2017-04-22] MEDS: Oxacillin(*) 2 GM in NS 0.9% 100 ML* 100 ML IVPB SCH ×6 (01:34→22:53)
[2017-04-22] MEDS: methylPREDNISolone SOD 40 MG* 1 ML VIAL IV SCH ×2 (02:36→19:01)
--- NOTE | 2017-04-22 03:38 | CONS ---
CONSULTATION REPORT: DATE OF CONSULT: 04/21/17 HISTORY OF PRESENT ILLNESS: The patient is a very pleasant 76-year-old gentleman with history of hypertension and gout, who complains of back pain over the last week and a half. The patient was initially evaluated in the emergency room on 04/18/17, and at that time, he had MRI findings consistent with stenosis at L3-4 and L4-5 and was prescribed Medrol Dosepak and Percocet and Valium. He was referred to my office yesterday with similar complaints. Because of acuity of symptoms, MRI of the thoracic and cervical spine was ordered and Neurology evaluation. The patient continued to have significant back pain and was brought to the emergency room. The patient had MRCP because of elevated white blood cell count of 33,000 as well as previous elevation of white count of 24,000 as well as C- reactive protein elevated at 112. The patient, at this point, denies any weakness, numbness, tingling of extremities. Denies any urinary or GI incontinence. He has some intermittent confusion. He was reported to have temperature of 100 and possible infiltration. I was requested to see the patient by Dr. Vega because of his complaints of back pain. Based on the patient's symptoms and elevated white count, an MRI of his thoracic and lumbar spine with and without contrast was ordered, which revealed extensive epidural collection of possible abscess extending from C6-[address] down to almost L4. The patient was evaluated shortly after the MRI. PAST MEDICAL HISTORY: Hypertension; gout; multiple arthroplasties including left knee replacement, bilateral hip arthroplasties; right hand surgery; left shoulder surgery; cholecystectomy; cataract surgery bilaterally; GI bleed; partial colon resection after being on Coumadin after hip replacement. MEDICATIONS: 1. Norvasc. 2. Multivitamin. 3. Allopurinol. 4. Lovastatin. 5. Diazepam. 6. Benadryl. 7. Potassium. 8. Bystolic. 9. Percocet. 10. Medrol Dosepak. ALLERGIES: AMOXICILLIN, CELECOXIB, and LATEX. FAMILY HISTORY: Coronary artery disease. SOCIAL HISTORY: The patient is , lives with his . 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 The patient is a former smoker, stopped smoking several years ago. Alcohol - the patient consumes 4 to 6 beers daily. As the patient reports today, his last drink was several weeks ago and as the patient' s reported yesterday in the office, he has not taken any alcohol for several days. REVIEW OF SYSTEMS: Negative. PHYSICAL EXAM: The patient is not in acute distress. He is awake, alert, and oriented x2 to 3. Pupils are equal and reactive. Cranial nerves II through XII grossly intact. Motor 4-5/5 in lower extremities with the exception of decreased range of motion of the right shoulder with 4-/5 shoulder abduction, possible antalgic as he has pain in the passive motion of the right shoulder and pain to palpation of the right shoulder. Sensory is grossly intact to light touch. Deep tendon reflexes +1 bilaterally. No clonus. No Babinski. Perez's negative. Straight leg test negative in the supine position. No pain to palpation of cervical, thoracic, or lumbar spine. He has free range of motion of cervical spine. DIAGNOSTIC STUDIES/LAB DATA: The patient had a CT scan of the brain that revealed no significant intracranial abnormality. The patient had MRI of the thoracic spine that revealed posterior epidural periphery enhancing fluid collection, possible abscess between C6-[address] down to T12. The patient also had an MRI of the lumbar spine revealing also epidural collection and possible abscess, mostly anteriorly between L1 and L4 with enhancement and edema of the facet joints at L4-L5 and L5-S1 as reported in radiology report and also enhancement of the costovertebral joints on the left at T8, T10-T11, and T11- T12. The patient has a white blood cell count of 33,000, hematocrit of 44, platelet count of 384. His INR is 1.24. His sodium is 133 with creatinine of 0.89. He also had elevation of his bilirubin, AST and ALT as well as elevation of alkaline phosphatase. C-reactive protein was 166 with lipase of 28. ASSESSMENT: This is a very pleasant 76-year-old gentleman with multiple medical problems including a history of alcohol abuse, gout, hypertension, and multiple joint arthroplasties with complaints of severe back pain and inability to walk with MRI findings consistent with extensive probable spinal epidural abscess. PLAN: The patient, at this point, has been admitted to the hospital and he has been placed on vancomycin. We will recommend to continue antibiotics and consider Infectious Disease consultation for further antibiotic coverage recommendation. Also, we recommend an MRI of the cervical spine to assess for epidural abscess in the cervical spine and proceed for possibly to intensive care unit based on his history of alcohol consumption. The patient may be advised for alcohol withdrawal and he may benefit from EtOH withdrawal protocol. From our standpoint, we will recommend surgical intervention for evacuation of epidural abscess with multilevel skip laminectomies. We recommend to place the patient n.p.o. and obtain medical clearance. We discussed in extent with the patient regarding his radiological and clinical findings and the need for surgical intervention as well as risks and benefits as well as expectations, limitations, possible complications of the procedure, with complications include, but not limited to, bleeding, infection, risk of damage to adjacent structures, coma, paralysis, , need for additional procedure, anesthesia risks, stroke, blindness, cancer, instability. The patient understands and is agreeable to proceed with surgery. Attempted to contact the patient's over the phone, but unfortunately it was not possible at this time. The patient may benefit from further workup for other sources of his infection and he may be also a candidate for an orthopedic evaluation. I greatly appreciate Internal Medicine management. Thank you very much for allowing us to participate in the care of this patient. Please do not to hesitate to contact our office in case you have any further questions or concerns regarding the care of this patient. Armond Melendrez MD [id number]/[facility] #: [id number] JOCELYN
[2017-04-22] MEDS ORDERED: cefTRIAXone(*) 1 GM in NS 0.9% 50 ML* 50 ML IVPB SCH (05:00)
[2017-04-22 05:08] LABS: Hematocrit 40 % (42-52); Hemoglobin 13.5 g/dl (14.0-18.0); Mean Corpuscular HGB Conc 34 g/dl (31-36); Mean Corpuscular Hemoglobin 33 pg (27-31); Mean Corpuscular Volume 98 fL (80-94); Mean Platelet Volume 8 um3 (7.4-10.4); Platelet Count 372 10^3/ul (150-450); Red Blood Count 4.09 10^6/ul (4.0-5.4); Red Cell Distribution Width 14 % (10.5-15)
[2017-04-22 05:19] LABS: EGFR Non-African American 110.2 (>60)
[2017-04-22 05:37] LABS: ABS Basophils 0.2 10^3/ul (0-0.2); ABS Eosinophils 0 10^3/ul (0-0.6); ABS Lymphocytes 0.4 10^3/ul (1.0-4.8); ABS Monocytes 1.5 10^3/ul (0-0.8); ABS Neutrophils 28.9 10^3/ul (1.5-7.7); ABS Nucleated RBC 0 10^3/ul; Eosinophil % 0 % (0-6); Lymphocyte % 1.3 % (25-47); Nucleated Red Blood Cells % 0
[2017-04-22] MEDS ORDERED: Gadoteridol* (CONTRAST) 279.3 MG/ML 10 ML IV ONE (05:44)
[2017-04-22] MEDS: NS 0.9% 1000 ML* 1,000 ML IV SCH ×2 (06:24→22:30)
[2017-04-22] MEDS ORDERED: amLODIPine TAB* 5 MG PO SCH (09:00)
[2017-04-22] MEDS ORDERED: Multivitamins/Minerals TAB PO SCH (09:00)
--- NOTE | 2017-04-22 09:15 | RAD ---
Indication: Epidural abscess. Image sequences: Sagittal T1, T2, STIR, axial T1 and T2 and gradient echo images of the cervical spine were obtained. Postcontrast axial and sagittal T1-weighted fat-suppressed images were obtained. Again noted is a left-sided posterior lateral extra medullary fusiform fluid collection close most cranial extent is at the level of C6 and extends into the left posterior lateral aspect of the epidural space into the thoracic spine. At C2-C3, C3-C4 and C4-C5 minimal degenerative disc disease is noted although no evidence of epidural collections are noted. Degenerative disc disease at C6-C7 is noted. The spinous processes are unremarkable. No prevertebral soft tissue swelling is noted. IMPRESSION: Extensive epidural abscess arising from the C6 level in the posterior lateral aspect of the epidural space extending into the thoracic spinal canal as described above.
[2017-04-22] MEDS: Pantoprazole IV* 40 MG IV SCH (09:25)
[2017-04-22] MEDS: CMCS: Nebivolol TAB (NF) 2.5 MG TAB PO SCH (09:25)
[2017-04-22] MEDS: Allopurinol TAB* 100 MG PO SCH (10:10)
[2017-04-22] MEDS: Potassium Chlor TAB* 20 MEQ TAB.ER PO SCH (10:10)
[2017-04-22] MEDS: Folic Acid TAB* 1 MG PO SCH (10:10)
[2017-04-22] MEDS: Thiamine TAB* 100 MG TAB PO SCH (10:11)
[2017-04-22] MEDS ORDERED: Thrombin 5,000 UNITS* 1 APPLIC KIT - topical use - TOPICAL ONE (10:50)
[2017-04-22] MEDS ORDERED: Lidocaine 1% MPF wEPI 200,000* 30 ML SDV ONE (10:50)
[2017-04-22] MEDS ORDERED: Bacitracin IV* 50,000 UNITS INJ ONE ×4 (10:50→17:59)
[2017-04-22] MEDS ORDERED: Midazolam* 1 MG/ML 2 ML VIAL (2 MG) ONE (10:57)
[2017-04-22] MEDS ORDERED: fentaNYL* 50 MCG/ML 2 ML VIAL (100 MCG VIAL) ONE ×3 (10:57→17:33)
--- NOTE | 2017-04-22 11:10 | PN ---
Subjective Date of Service: 04/22/17 Interval History: Pt c/o pain all over. Objective Active Medications: Acetaminophen (Tylenol Tab*) 650 mg PO Q4H PRN PRN Reason: FEVER/PAIN Last Admin: 04/21/17 15:52 Dose: 650 mg Allopurinol (Zyloprim Tab*) 100 mg PO QAM [facility] Last Admin: 04/22/17 10:10 Dose: Not Given Amlodipine Besylate (Norvasc Tab*) 10 mg PO DAILY [facility] Last Admin: 04/22/17 10:10 Dose: Not Given Folic Acid (Folvite Tab*) 1 mg PO DAILY [facility] Last Admin: 04/22/17 10:10 Dose: Not Given Hydromorphone HCl (Dilaudid Inj*) 2 mg IV SLOW PU Q4H PRN PRN Reason: PAIN Last Admin: 04/22/17 04:12 Dose: 2 mg Sodium Chloride (Ns 0.9% 1000 Ml*) 1,000 mls @ 100 mls/hr IV PER RATE [facility] Stop: 04/23/17 00:59 Last Admin: 04/22/17 06:24 Dose: 100 mls/hr Oxacillin Sodium 2 gm/ Sodium (Chloride) 100 mls @ 200 mls/hr IVPB Q4H [facility] Last Admin: 04/22/17 09:42 Dose: 200 mls/hr Lorazepam (Ativan Inj*) 0 - 6 mg IV PUSH .PER [facility] PROTOCOL [facility] PRN Reason: Protocol Methylprednisolone Sodium Succinate (Solu-Medrol 40 Mg) 40 mg IV Q12H [facility] Last Admin: 04/22/17 02:36 Dose: 40 mg Multivitamins/Minerals (Theragran/Minerals Tab*) 1 tab PO DAILY [facility] Last Admin: 04/22/17 10:10 Dose: Not Given Nebivolol (Bystolic Tab (Nf)) 10 mg [facility] [place] Last Admin: 04/22/17 09:25 Dose: 10 mg Oxycodone/Acetaminophen (Percocet 5/325 Tab*) 1 tab PO Q4H PRN PRN Reason: Pain Pantoprazole Sodium (Protonix Iv*) 40 mg IV Q12H [facility] Last Admin: 04/22/17 09:25 Dose: 40 mg Potassium Chloride (Klor Con Er Tab*) 20 meq PO BID [facility] Last Admin: 04/22/17 10:10 Dose: Not Given Thiamine HCl (Vitamin B-1 Tab*) 100 mg PO DAILY [facility] Last Admin: 04/22/17 10:11 Dose: Not Given Vital Signs - 8 hr 04/22/17 04/22/17 04/22/17 03:30 03:32 04:00 Temperature 101.2 F Pulse Rate 71 70 Respiratory 16 14 14 Rate Blood Pressure 138/83 (mmHg) O2 Sat by Pulse 100 99 Oximetry 04/22/17 04/22/17 04/22/17 04:12 04:19 04:30 Temperature Pulse Rate 73 68 Respiratory 13 12 10 Rate Blood Pressure 152/74 (mmHg) O2 Sat by Pulse 97 98 Oximetry 04/22/17 04/22/17 04/22/17 05:00 05:09 06:00 Temperature Pulse Rate 75 73 Respiratory 10 10 Rate Blood Pressure 161/72 (mmHg) O2 Sat by Pulse 96 100 Oximetry 04/22/17 04/22/17 04/22/17 06:19 06:28 07:00 Temperature Pulse Rate 75 72 72 Respiratory 18 Rate Blood Pressure 131/83 (mmHg) O2 Sat by Pulse 97 98 97 Oximetry 04/22/17 04/22/17 04/22/17 07:01 07:05 07:30 Temperature Pulse Rate 69 67 67 Respiratory 10 14 13 Rate Blood Pressure 138/72 (mmHg) O2 Sat by Pulse 98 99 99 Oximetry 04/22/17 04/22/17 04/22/17 07:32 08:00 08:30 Temperature 100.1 F Pulse Rate 68 66 Respiratory 17 13 Rate Blood Pressure 125/75 138/81 (mmHg) O2 Sat by Pulse 99 99 Oximetry 04/22/17 04/22/17 04/22/17 09:00 09:07 09:30 Temperature Pulse Rate 68 68 71 Respiratory 15 14 12 Rate Blood Pressure 137/81 155/87 (mmHg) O2 Sat by Pulse 98 97 98 Oximetry 04/22/17 04/22/17 04/22/17 10:00 10:01 10:14 Temperature Pulse Rate 70 68 67 Respiratory 19 15 17 Rate Blood Pressure 133/74 (mmHg) O2 Sat by Pulse 98 98 99 Oximetry Oxygen Devices in Use Now: OxyMask - at 3 l Appearance: 76 yo M in nAD, AAOx2, poor historian Eyes: No Scleral Icterus, PERRLA Ears/Nose/Mouth/Throat: NL Teeth, Lips, Gums, Mucous Membranes Moist Neck: NL Appearance and Movements; NL JVP, Trachea Midline Respiratory: Symmetrical Chest Expansion and Respiratory Effort, - - crackles at b/l bases Cardiovascular: NL Sounds; No Murmurs; No JVD, RRR Abdominal: No Hepatosplenomegaly, - - mild epigastric distention, no rebound, no guarding, BS+. inking machine tender to palapation overt the T and L spine Lymphatic: No Cervical Adenopathy Extremities: No Clubbing, Cyanosis, - - left knee with small effusion, tender to palpation, no effusions noted in other joints Skin: No Rash or Ulcers Neurological: NL Muscle Strength and Tone, - - limit in ROM in b/l LE's due to back pain Result Diagrams: 04/22/17 04:11 04/22/17 04:11 Microbiology and Other Data: Microbiology 04/22/17 06:20 Nasal Screen MRSA (PCR)(KEEGAN) - Final Nasal Mrsa Not Detected Assess/Plan/Problems-Billing Assessment: 76 yo M with h/o HTN, multiple joint replacements, GI bleed (and partial colon resection due to bleed) - Patient Problems (1) Epidural abscess Comment: Blood cx MSSA positive Pt septic at admission, afebrile this aM, but still marked WBC elevation. Mental status improved, suspect infectious encephalopathy due to sepsis cont oxacillin, no allergic reaction noted ID consulted Pt had been on steroids x 3 days before admission. For now will cont Solu Medrol and try to taper it to off postop To OR today with neurosurgery (2) Left knee pain Comment: h/o TKR in the past, knee with small effusion and tender, spoke with Dr. Soliman re: possible aspiration "Dry tap" of R shoulder performed this aM (3) HTN (hypertension) Comment: controlled, cont Bystolic, hold Norvasc (4) LFT elevation Comment: No evidence of CBD disease, s/p remote cholecystectomy LFT's improving. Unknown baseline LFT's, no date since 2012 Pt has h/o significant ETOH use(5 beers /day) (5) Epigastric abdominal tenderness Comment: ? gastritis? H/o GI bleed. will start IV Protonix Q12H (6) DVT prophylaxis Comment: heparin held preop SCD's Status and Disposition: inpatient
[2017-04-22] MEDS ORDERED: Lidocaine 2% PF * 5 ML VIAL ONE (12:29)
[2017-04-22] MEDS ORDERED: Succinylcholine* 20 MG/ML 10 ML VIAL ONE (12:29)
[2017-04-22] MEDS ORDERED: Propofol* 10 MG/ML 20 ML BTL IV PUSH ONE (12:29)
[2017-04-22] MEDS ORDERED: Cisatracurium* 2 MG/ML MDV 5 ML ONE ×2 (12:30→20:08)
[2017-04-22] MEDS ORDERED: Vancomycin 1500 MG IV - x ONCE IVPB ONE ×2 (13:00)
--- NOTE | 2017-04-22 13:07 | PN ---
Progress Note - Progress Note Date of Service: 04/22/17 SOAP: Subjective: []No events ON. In ICU. Blood cx MSSA, on ABx. MRI C spine done this am. NPO Objective: VVS []AAOx2-3 < RADHA, CN II-XII grossly intact. Motor 4-5/5/all extremities. Sensory grossly intact to light touch. DTR +1 bilaterally. No clonus, No Babinski, No Perez's Assessment: []76 yom possible extensive epidural abscess Plan: []To OR today. Medically cleared. Discussed in extend with patient's family, including his , grandaughter, and son regarding patient's condition. They understand different treatment options, and possible outcomes. Offered surgical intervention for multiple laminectomies for drainage of possible ED abscess. Family understands risks and benefits, expectations, limitations and possible complications including bleeding, infection, risk of injury to adjacent structures, coma,paralysis, , instability, stroke, blindness, cancer, spinal fluid leak, anesthesia risks, need for additional procedures. They understand that his condition may not improve and may get worse and that he may require additional procedures in the future. Also they understand that intraoperative plan may be modified according to intraoperative findings and conditions. IC obtained. Armond Melendrez MD
[2017-04-22] MEDS ORDERED: EPHEDrine (Pressors)* 50 MG/ML VIAL ONE (14:42)
--- NOTE | 2017-04-22 15:34 | PN ---
Progress Note - Progress Note Date of Service: 04/22/17 SOAP: Pt seen an examined at 6:10 AM. note not transcribed yet. At time of examination , pt was able to communicate shoulder pain and generalized pain. He did not endorse knee pain. His legs were palpated and he was tender diffusely along with shoulder. Asked for xrays of shoulders. Called by Dr Vega about concern for knee. This is a new issue and we have been unable to assess due to pt being in OR. Will assess post operatively on tomorrow by one of my partners, possibly Dr Galan.
--- NOTE | 2017-04-22 15:58 | CONS ---
CC: Dr. Rao * CONSULTATION REPORT: DATE OF CONSULT: 04/22/17 DATE OF ADMISSION: 04/21/17 ATTENDING PHYSICIAN: Telly Soliman MD. WEIGHER AND GRADER: Chuck Horton MD. PRIMARY CARE PHYSICIAN: Dr. Rao. CHIEF COMPLAINT: Right shoulder pain. HISTORY OF PRESENT ILLNESS: Briefly, Sandeep Bonilla is a 76-year-old male who has had hypertension and gout, who presents with lower back pain last week and half. At this admission, he has been diagnosed with an epidural abscess that extends from cervical through the lumbar spine. He is clearly n.p.o. and awaiting surgery by Dr. Melendrez. There was concern on Dr. Melendrez' exam for possible shoulder infection due to his pain with his range of motion. Per the patient, he has had at least 3 to 4 weeks of significant shoulder pain. He was very active in his youth and did a lot of lifting. He feels like it is painful sleeping on it. He has pain lifting it up past certain degrees. He denies any fevers or chills. No numbness, no tingling with respect to his arm. He states that it has been going up for more than a few weeks longer than his back pain, which has been more intermittent. PAST MEDICAL HISTORY: Hypertension, gout, high cholesterol. PAST SURGICAL HISTORY: Partial colon resection due to GI bleed after Coumadin, right hip total arthroplasty in 2012, left hip replacement, right hand surgery, cataract surgery bilaterally, cholecystectomy. CURRENT MEDICATIONS: 1. Tylenol. 2. Allopurinol. 3. Amlodipine. 4. Folic acid. 5. Hydromorphone. 6. Lorazepam. 7. Methylprednisolone. 8. Multivitamins. 9. Nebivolol. 10. Oxacillin. 11. Percocet. 12. Potassium. 13. Sodium chloride. 14. Thiamine. He has also received Valium, ceftriaxone, fentanyl. ALLERGIES: To AMOXICILLIN, CELEBREX, and LATEX. FAMILY HISTORY: Mother at 85 of natural causes. Father at 49 due to an CT. SOCIAL HISTORY: He lives with his . He stopped smoking in 1970. Drinks 4 to 5 beers on daily basis but has not been drinking in the last few days. REVIEW OF SYSTEMS: A 14-point review of systems was reviewed. Significant for back pain, inability to weightbear, muscle spasms, bilateral shoulder pain, epigastric pain. Otherwise remainder of the systems is negative. PHYSICAL EXAM: Vitals: Heart rate is 72, O2 98 on oxygen, blood pressure 161/ 72, temperature of 101.2. He is lying in the bed. He is conversant. He slightly confused. He just received pain medication, but he does respond to my questions. Otherwise pleasant. Examination of the bilateral shoulders demonstrates the skin is intact. There is no erythema or warmth. There is no obvious fluctuance or effusion. The skin is intact. There is no evidence of previous incisions. Examination of the right shoulder and arm demonstrates that he is able to forward flex to about 30 degrees, passively I can get him to about 45 degrees and it is painful for him. I can internally and externally rotate without significant amount of pain until I get the external rotation to about 45 degrees. Passively, I can forward flex him to about 45 degrees. He is sensate to light touch grossly distally. Brisk cap refill. Examination of the left shoulder demonstrates skin is intact. There is no erythema or warmth. He is slightly less tender to palpation. I am able to passively forward flex him to about 70 degrees. He can actively forward flex to about 30, abduct to 30. Some discomfort with internal and external rotation. Also note that he is tender to palpation about the right shoulder subacromial space anteriorly and posteriorly. In regards to left shoulder, he is sensate to light touch grossly distally, brisk cap refill. IMAGING: No imaging has been done of the shoulder and x-rays will be done. DIAGNOSTIC STUDIES/LAB DATA: Labs dated today demonstrates white count of 31, down from 33; hematocrit of 40; platelet count of 372. INR 1.2. Sodium 137, potassium 4.3, chloride 105, carbon dioxide 25, BUN 30, creatinine 0.7, glucose 128, calcium 8.2. His CRP obtained yesterday was 166. There is no ESR. ASSESSMENT AND PLAN: This is an unfortunate 76-year-old male who has an epidural abscess, who has bilateral shoulder pain as well. There are concerns for possible septic shoulder in the setting of an epidural abscess. After discussion with the patient, we attempted aspiration of the right shoulder which was a dry tap. The shoulder was prepped and draped in the usual sterile fashion. An 18-gauge needle was used to try to aspirate the joint. There was no fluid. It was redirected from the subacromial space to the joint itself in case the rotator cuff was intact. He tolerated the procedure well. No fluid was returned. I would recommend x-rays after his surgery today. Likely this is a rotator cuff arthropathy, at which point I would treat him in the outpatient office but if he starts to develop more redness, warmth and swelling of his shoulders, more pain on passive motion, I would consider checking again for an infection. I will follow along with the patient while he is in the hospital. [id number]/[facility] #: [id number] JOCELYN
[2017-04-22] MEDS ORDERED: Hetastarch 6% in NS* 500 ML IV ONE (17:08)
--- NOTE | 2017-04-22 17:23 | CONS ---
CONSULTATION REPORT: DATE OF CONSULT: 04/22/17 REQUESTING PHYSICIAN: Dr. Vega. CONSULTING SERVICE: Infectious Disease. REASON FOR CONSULTATION: Staphylococcal epidural abscess. IMPRESSION: 1. Staphylococcus aureus bacteremia with a large epidural abscess extending from the cervical to the end of the bottom of the thoracic spine. There is enhancement of the costovertebral articulation on the left at T10-11, T11-12 consistent with septic arthritis. Epidural abscess noted to be a posterior collection. He is neurologically intact on the lower extremities and arms. 2. Prosthetic left knee infection. It is warm, tender and there is a moderate effusion. He has bilateral hip arthroplasties which are somewhat tender, though not impressively so, so I think they are less likely to be infected though still possible. Infectious endocarditis is always on the differential. 3. Transaminitis. He had an MRCP that was consistent with post cholecystectomy changes. 4. Hypertension. 5. Status post partial colectomy. 6. Allergies to AMOXICILLIN, but he is tolerating oxacillin well. RECOMMENDATION: Continue oxacillin 2 g IV every 4 hours. We will repeat the blood cultures at some point, obtain a transthoracic echocardiogram. Orthopedics consultation for left knee aspiration. Neurosurgery is already seeing and planned to take to OR. HISTORY OF PRESENT ILLNESS: This is a 76-year-old man admitted with severe back pain, which today he only has when he moves. It has been present for about 10 days, seen in the emergency room a few days, given steroids and pain treatment. At that time, his CPR was 112, was referred to Neurosurgery, who recommended to come to the hospital and MRI findings as above were noted and they have been following here. Blood cultures were taken for growing methicillin-sensitive Staphylococcus aureus. He has been febrile to 38.8 overnight. In addition to back pain, he complains of left knee pain. No fever , rash, or diarrhea. PAST MEDICAL HISTORY: 1. Osteoarthritis. 2. Hypertension. 3. GI bleed, status post partial colectomy in 2012. 4. Gout. 5. Status post right hip arthroplasty. 6. Status post left hip arthroplasty. 7. Status post left knee arthroplasty. 8. History of right hand surgery. 9. Status post bilateral cataract surgery. 10. Status post cholecystectomy. ALLERGIES: AMOXICILLIN, CELEBREX, and LATEX. MEDICATIONS: 1. Tylenol. 2. Allopurinol. 3. Amlodipine. 4. Fentanyl. 5. Folic acid. 6. Oxacillin 2 g IV every 4 hours. 7. Pantoprazole. 8. Thiamine. SOCIAL HISTORY: He lives with his . He drinks 6-pack a day. Past smoker. FAMILY HISTORY: Mother of old age at 85. Father at age 49 due to AR. REVIEW OF SYSTEMS: A 14-point review of systems was negative except as noted above. PHYSICAL EXAMINATION: Vital Signs: Temperature 37.8, heart rate 70, respiratory rate 17, blood pressure 133/74, oxygen saturation 99% on 3 L by nasal cannula. In general, he is awake, not in distress. Neurologic: He is oriented. He follows commands, answers questions. Strength is 5/5 in the quadriceps, tibialis anterior, gastrocnemius bilaterally. Sensation is intact to light touch in both feet. HEENT: There is no conjunctival hemorrhage. Oropharynx without lesions. Neck is supple. Lymph Nodes: There is no inguinal , axillary, or epitrochlear lymphadenopathy. Heart is regular rate and rhythm without murmurs, rubs, or gallops. Lungs are clear to auscultation bilaterally. Abdomen is soft, nontender, nondistended. There are bowel sounds present. Skin: There is no rash or splinter hemorrhages. Musculoskeletal: There is a left knee effusion with mild warmth and tenderness. Log roll bilaterally is negative. LABORATORY DATA: Creatinine 0.7; ALT 118, down from 190; CRP was 166; white blood cell count 31; hemoglobin 13; platelets 372. Please see impressions and recommendations outlined above, which I have discussed with Dr. Vega. Thank you for asking me to see Mr. Bonilla in consultation. [id number]/[facility] #: [id number] ELLIS HOSPITALDilcia
[2017-04-22] MEDS ORDERED: Vancomycin(*) 1,000 MG VIAL ONE (19:09)
[2017-04-22] MEDS ORDERED: Dexamethasone IV* 4 MG/ML 1 ML (4 MG) ONE (19:11)
[2017-04-22] MEDS ORDERED: Famotidine IV* 10 MG/ML 2 ML (20 mg) ONE (19:14)
[2017-04-22 19:54] LABS: Hematocrit 28 % (42-52); Hemoglobin 9.6 g/dl (14.0-18.0); Mean Corpuscular HGB Conc 34 g/dl (31-36); Mean Corpuscular Hemoglobin 33 pg (27-31); Mean Corpuscular Volume 97 fL (80-94); Mean Platelet Volume 8 um3 (7.4-10.4); Platelet Count 344 10^3/ul (150-450); Red Blood Count 2.91 10^6/ul (4.0-5.4); Red Cell Distribution Width 14 % (10.5-15); White Blood Count 28.3 10^3/ul (3.5-10.8)
[2017-04-22 20:01] LABS: INR 1.29 (0.77-1.02)
[2017-04-22 20:42] LABS: ABS Basophils 0 10^3/ul (0-0.2); ABS Eosinophils 0 10^3/ul (0-0.6); ABS Lymphocytes 0.6 10^3/ul (1.0-4.8); ABS Monocytes 2.6 10^3/ul (0-0.8); ABS Nucleated RBC 0 10^3/ul; Eosinophil % 0 % (0-6); Lymphocyte % 2.2 % (25-47); Nucleated Red Blood Cells % 0
[2017-04-22] MEDS ORDERED: Propofol* 100 ML ONE (21:30)
[2017-04-22] MEDS: Propofol* 1000 MG (10 MG/ML 100 ml) @ Per Protocol (in ICU Pyxis) IV SCH (22:00)
--- NOTE | 2017-04-22 22:05 | RAD ---
INDICATION: Epidural abscess. Multilevel laminectomy. COMPARISON: April 21, 2017 MRI. TECHNIQUE: 4.5 seconds fluoroscopy. FINDINGS: AP and lateral spot images of the lumbar spine. IMPRESSION: Procedural fluoroscopy. CPT II Codes: 6045F
[2017-04-23] MEDS: Potassium Chlor TAB* 20 MEQ TAB.ER PO SCH (00:31)
[2017-04-23 01:05] LABS: Hematocrit 27 % (42-52); Hemoglobin 9.1 g/dl (14.0-18.0); Mean Corpuscular HGB Conc 34 g/dl (31-36); Mean Corpuscular Hemoglobin 32 pg (27-31); Mean Corpuscular Volume 95 fL (80-94); Mean Platelet Volume 8 um3 (7.4-10.4); Platelet Count 242 10^3/ul (150-450); Red Blood Count 2.84 10^6/ul (4.0-5.4); Red Cell Distribution Width 16 % (10.5-15); White Blood Count 19.5 10^3/ul (3.5-10.8)
[2017-04-23] MEDS: Oxacillin(*) 2 GM in NS 0.9% 100 ML* 100 ML IVPB SCH ×6 (01:09→21:00)
[2017-04-23] MEDS: Pantoprazole IV* 40 MG IV SCH ×2 (01:09→09:37)
[2017-04-23] MEDS: Propofol* 1000 MG (10 MG/ML 100 ml) @ Per Protocol (in ICU Pyxis) IV SCH ×3 (01:11→18:19)
[2017-04-23 01:17] LABS: INR 1.18 (0.77-1.02)
[2017-04-23 01:19] LABS: EGFR Non-African American 66.8 (>60)
[2017-04-23 02:02] LABS: ABS Basophils 0 10^3/ul (0-0.2); ABS Eosinophils 0 10^3/ul (0-0.6); ABS Lymphocytes 0.5 10^3/ul (1.0-4.8); ABS Monocytes 1.5 10^3/ul (0-0.8); ABS Neutrophils 17.5 10^3/ul (1.5-7.7); ABS Nucleated RBC 0 10^3/ul; Eosinophil % 0 % (0-6); Lymphocyte % 2.3 % (25-47); Nucleated Red Blood Cells % 0
[2017-04-23] MEDS: NS 0.9% 1000 ML* 1,000 ML IV SCH ×2 (03:15→12:30)
[2017-04-23] MEDS: methylPREDNISolone SOD 40 MG* 1 ML VIAL IV SCH ×2 (03:27→16:08)
[2017-04-23 06:21] LABS: Hematocrit 26 % (42-52); Hemoglobin 9.2 g/dl (14.0-18.0); Mean Corpuscular HGB Conc 35 g/dl (31-36); Mean Corpuscular Hemoglobin 33 pg (27-31); Mean Corpuscular Volume 94 fL (80-94); Mean Platelet Volume 8 um3 (7.4-10.4); Platelet Count 247 10^3/ul (150-450); Red Blood Count 2.79 10^6/ul (4.0-5.4); Red Cell Distribution Width 16 % (10.5-15); White Blood Count 17.6 10^3/ul (3.5-10.8)
[2017-04-23 06:28] LABS: EGFR Non-African American 55.4 (>60)
--- NOTE | 2017-04-23 07:25 | RAD ---
HISTORY: Tube placement COMPARISONS: April 21, 2017 VIEWS: 1: frontal portable view of the chest at 10:21 PM FINDINGS: LINES AND TUBES: An endotracheal tube is noted with the tip overlying the trachea between the clavicles and the adele. A gastric tube is noted, with the tip in the left upper quadrant in a prepyloric position.. A right internal jugular venous catheter is noted with the tip overlying the expected location of the superior vena cava. Surgical drains are noted overlying the spine. CARDIOMEDIASTINAL SILHOUETTE: The cardiomediastinal silhouette is normal for portable technique. PLEURA: The costophrenic angles are sharp. No pleural abnormalities are noted. LUNG PARENCHYMA: The lungs are clear. ABDOMEN: The upper abdomen is clear. There is no subphrenic gas. BONES AND SOFT TISSUES: No bone or soft tissue abnormalities are noted. IMPRESSION: LINES AND TUBES ABOVE. NO ACTIVE CARDIOPULMONARY DISEASE.
[2017-04-23 07:30] LABS: ABS Basophils 0 10^3/ul (0-0.2); ABS Eosinophils 0 10^3/ul (0-0.6); ABS Lymphocytes 0.3 10^3/ul (1.0-4.8); ABS Monocytes 0.9 10^3/ul (0-0.8); ABS Nucleated RBC 0 10^3/ul; Eosinophil % 0 % (0-6); Nucleated Red Blood Cells % 0.1
[2017-04-23] MEDS ORDERED: Vancomycin Trough Check NOTE FOLLOW UP ONE (07:30)
[2017-04-23] MEDS ORDERED: Perflutren Lipid Microsphere* 3 ML VIAL ONE (09:19)
[2017-04-23] MEDS: HYDROmorphone INJ* 2 MG/ML CARPUJECT SYRINGE IV SLOW PU PRN ×2 (10:12→22:25)
[2017-04-23] MEDS: Multivitamins ADULT w/MIN LIQ* 15 ML UDC PO SCH (10:41)
[2017-04-23] MEDS: Folic Acid TAB* 1 MG PO SCH (10:41)
[2017-04-23] MEDS: CMCS: Nebivolol TAB (NF) 2.5 MG TAB PO SCH (10:41)
[2017-04-23] MEDS: Potassium Chloride LIQUID* 20 MEQ PACKET PO SCH ×2 (10:41→21:00)
[2017-04-23] MEDS: Allopurinol TAB* 100 MG PO SCH (10:41)
[2017-04-23] MEDS: Thiamine TAB* 100 MG TAB PO SCH (10:42)
--- NOTE | 2017-04-23 11:23 | ECHO ---
Patient: LEONELA VELASQUEZ [facility] Rec#: [id number] : 1940 Date: 04/23/2017 Age: 76y Height: 170.18 cm / 67.0 in Weight: 95.25 kg / 209.9 lbs Sex: M BSA: 2.06 Room#: ICU-1 Admit Date#: 04/21/2017 Type: Inpatient Referring: Beata Vega MD Reading: Calvin Man MD Director Systems: Anjelica Fontenot RDCS CC: Manuel Rao MD Transthoracic Echocardiogram Indication: Bacteremia, + BC BP: 110/50 HR: 73 Rhythm: NSR Findings History: S. aureus + BC, ETOH use, HTN, former smoker, L. TKR and THR. Patient was sedated, intubated, and mechanically ventillated during the study. Technical Comments: The study is technically difficult. The study was technically limited due to the patient's inability to lay in the left lateral decubitus position. The study is technically limited due to patient being intubated and on a ventilator. Completed at 1000. Left Ventricle: The left ventricular chamber size is normal. Mild concentric left ventricular hypertrophy is observed. Global left ventricular wall motion and contractility are within normal limits. There is normal left ventricular systolic function. The estimated ejection fraction is 60-65%. There is no consistent Doppler evidence of clinically significant diastolic dysfunction. The patient was unable to perform a Valsalva maneuver. Left Atrium: The left atrium is not well visualized. The left atrial chamber size is normal. Right Ventricle: The right ventricular cavity size is normal. The right ventricular global systolic function is normal. Right Atrium: The right atrium is moderately dilated. Aortic Valve: The aortic valve structure is not well visualized. The aortic valve leaflets are mildly thickened. There is no evidence of aortic regurgitation. There is no evidence of aortic stenosis. The peak left ventricular outflow tract gradient is 5.92 mmHg. Mitral Valve: The mitral valve leaflets are mildly thickened. There is a trace of mitral regurgitation. There is no evidence of mitral stenosis. No vegetation is observed on the mitral valve. Tricuspid Valve: The tricuspid valve leaflets are normal. There is mild tricuspid regurgitation. Unable to estimate the right ventricular systolic pressure. No vegetation is observed on the tricuspid valve. Pulmonic Valve: The pulmonic valve structure is not well visualized. There is no evidence of pulmonic regurgitation. There is no pulmonic stenosis. Pericardium: There is no significant pericardial effusion. A pericardial fat pad is visualized. Aorta: There is no dilatation of the ascending aorta. There is no dilatation of the aortic arch. There is mild dilatation of the aortic root. Pulmonary Artery: The main pulmonary artery is not well visualized. Venous: Unable to accurately comment on the size collapsibility of the IVC as the patient in known to be on mechanical ventilation. Contrast: Definity was used to optimize study. 4 mL of diluted Definity was utilized. Intravenous contrast was used to enhance endocardial border definition. Conclusions Technically difficult study. There is normal left ventricular systolic function. The estimated ejection fraction is 60-65%. Global left ventricular wall motion and contractility are within normal limits. The left ventricular chamber size is normal. Mild concentric left ventricular hypertrophy is observed. The right atrium is moderately dilated. There is mild tricuspid regurgitation. No clear vegetation noted on this transthoracic echocardiogram. There is no prior echocardiogram available to compare with at this time. If concern for intra-cardiac vegetation remains, consider further evaluation with transesophageal echocardiogram. Measurements Name Value Normal Range RVIDd (AP) 2D 3.1 cm (0.9 - 2.6) RVDdMajor (2D) 3.1 cm (2.2 - 4.4) RAd ISD 4CH 5.5 cm (3.4 - 4.9) RA (A4C)W 5.4 cm (2.9 - 4.6) IVSd (2D) 1.1 cm (0.6 - 1) LVPWd (2D) 1.2 cm (0.6 - 1) LVIDd (2D) 4.6 cm (3.6 - 5.4) LVIDs (2D) 2.4 cm - LV FS (2D) 48 % (25 - 45) EF Teichholz (2D) 79 % - Aortic Annulus 1.9 cm (1.4 - 2.6) Ao root diameter (2D) 3.6 cm (2.1 - 3.5) Ascending Ao 3.2 cm (2.1 - 3.4) Aortic arch 2.6 cm (1.8 - 3.4) LA dimension (AP) 2D 4 cm (2.3 - 3.8) LAd ISD 4CH 5.2 cm (2.9 - 5.3) LA ISD 4CH W 4 cm (2.5 - 4.5) Name Value Normal Range LA ESV SP 4CH (A/L) 47 ml - LA ESV SP 2CH (A/L) 31 ml - LA ESV BP (A/L) 39 ml - LA ESV BP (A/L) index 19 ml/m2 - LA ESV SP 4CH (MOD) 44 ml - LA ESV SP 2CH (MOD) 28 ml - Name Value Normal Range MV E-wave Vmax 0.61 m/sec - MV deceleration time 269.6 msec - MV A-wave Vmax 0.66 m/sec - MV E:A ratio 0.91 ratio - LV septal e' Vmax 0.06 m/sec - LV lateral e' Vmax 0.08 m/sec - LV E:e' septal ratio 10 ratio - LV E:e' lateral ratio 7.63 ratio - Name Value Normal Range AV Vmax 1.75 m/sec - AV VTI 37.33 cm - AV peak gradient 12.25 mmHg - AV mean gradient 6.71 mmHg - LVOT Vmax 1.21 m/sec - LVOT VTI 23.53 cm - LVOT peak gradient 5.92 mmHg - LVOT mean gradient 2.47 mmHg - RAMONA Vmax 0.6 m/sec - Name Value Normal Range TR peak gradient 27 mmHg - Name Value Normal Range PV Vmax 1 m/sec - PV peak gradient 4.03 mmHg -
--- NOTE | 2017-04-23 12:52 | RAD ---
Indication: Right shoulder pain. 3 views of the right shoulder demonstrates AC joint arthritis. Degenerative changes of the glenohumeral joint are noted. No abnormal erosions are noted. 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
--- NOTE | 2017-04-23 12:56 | RAD ---
Indication: Left knee infection. 2 views of left knee are reviewed. There is bipolar left knee arthroplasty in satisfactory position. No joint effusion is noted. No evidence of periprosthetic lucency is noted. IMPRESSION: Bipolar left knee arthroplasty in satisfactory position.
[2017-04-23] MEDS ORDERED: Bacitracin IV* 50,000 UNITS INJ ONE ×3 (14:09→17:00)
--- NOTE | 2017-04-23 14:19 | PN ---
Progress Note - Progress Note Date of Service: 04/23/17 SOAP: Subjective: 76 year old male sp I&D with decompression of cervical, thoracic, liumbar spinal canal for epidural abscess 04/22/2017, seen in consult by ortho for shoulder pain, requested today for aspiration/ evaluation of left knee pain. Patient with spinal wound cultures + for Staph. Patient non-verbal due to intubation, denies c/o knee pain. Objective: General- Intubated, sedated in ICU, non-verbal, non-responsive to commands. MSK -L knee without erythema. moderate effusion noted, non-tender with mobility however patient sedated. Incision c/d/i. After consent taken from , L knee aspiration with approximately 50cc of cloudy, yellow, thick fluid aspirtated. Knee irrigated at bedside with 180cc normal saline. Cultures, cell count, crystals sent- WBC of synovial fluid 66,000, + for Staph. Assessment: Septic L knee with Staph infection Plan: - Patient will be taken to OR today for open wash out, debridement, polyethelyene exchange - Consent obtained from by DR. Galan - H&P dictated in chart by Dr Galan, recent H&P from surgery yesterday Vital Signs Temp 98.6 F 04/23/17 13:15 Pulse 63 04/23/17 13:15 Resp 20 04/23/17 13:00 BP 131/71 04/23/17 13:15 Pulse Ox 99 04/23/17 13:15 Intake & Output 04/22/17 04/23/17 04/23/17 18:59 06:59 18:59 Intake Total 598 1360 Output Total 850 1125 Balance -252 235 Weight 99 kg Intake: IV Fluids 498 1180 NS (0.9%) 498 835 Oxacillin 345 IVPB 100 Oxacillin 100 Medicated IV 180 CC - Propofol/Diprivan 180 Output: AREN #1 425 Urine 200 Hackett 650 700 Other: Other Amount Description AREN drains total of 4 Active Medications Generic Name Dose Route Start Last Admin Trade Name Freq PRN Reason Stop Dose Admin Acetaminophen 650 mg 04/21/17 15:36 04/21/17 15:52 Tylenol Tab* PO 650 mg Q4H PRN Administration FEVER/PAIN Allopurinol 100 mg 04/22/17 09:00 04/23/17 10:41 Zyloprim Tab* PO 100 mg QAM MIKE Administration Folic Acid 1 mg 04/22/17 09:00 04/23/17 10:41 Folvite Tab* PO 1 mg DAILY MIKE Administration Hydromorphone HCl 2 mg 04/21/17 14:58 04/23/17 10:12 Dilaudid Inj* IV SLOW PU 2 mg Q4H PRN Administration PAIN Oxacillin Sodium 2 gm/ Sodium 100 mls @ 200 mls/hr 04/22/17 01:00 04/23/17 13 :21 Chloride IVPB 200 mls/hr Q4H MIKE Administration Propofol 100 mls @ 11.43 mls/hr 04/22/17 22:00 04/23/17 05:08 Diprivan* IV 11.43 mls/hr .(Initial Rate) MIKE Administration Protocol 20 MCG/KG/MIN Sodium Chloride 1,000 mls @ 125 mls/hr 04/22/17 22:30 04/23/17 12:30 Ns 0.9% 1000 Ml* IV 125 mls/hr PER RATE MIKE Administration Lorazepam 0 - 6 mg 04/21/17 23:45 Ativan Inj* IV PUSH .PER [facility] PROTOCOL [facility] Protocol Methylprednisolone Sodium Succinate 40 mg 04/21/17 15:00 04/23/17 03:27 Solu-Medrol 40 Mg IV 40 mg Q12H MIKE Administration Multivitamins 15 ml 04/23/17 09:00 04/23/17 10:41 Theragran W/Minerals Liq* PO 15 ml DAILY MIKE Administration Nebivolol 10 mg 04/22/17 09:00 04/23/17 10:41 Bystolic Tab (Nf) PO 10 mg QAM MIKE Administration Ondansetron HCl 4 mg 04/22/17 22:01 Zofran Inj* IV Q6H PRN NAUSEA/VOMITING Oxycodone/Acetaminophen 1 tab 04/21/17 14:47 Percocet 5/325 Tab* PO Q4H PRN Pain Pantoprazole Sodium 40 mg 04/22/17 09:00 04/23/17 09:37 Protonix Iv* IV 40 mg Q12H MIKE Administration Potassium Chloride 20 meq 04/23/17 09:00 04/23/17 10:41 Klor-Con Liquid* PO 20 meq BID MIKE Administration Thiamine HCl 100 mg 04/22/17 09:00 04/23/17 10:42 Vitamin B-1 Tab* PO 100 mg DAILY MIKE Administration
[2017-04-23] MEDS ORDERED: fentaNYL* 50 MCG/ML 2 ML VIAL (100 MCG VIAL) ONE ×2 (14:47→15:53)
--- NOTE | 2017-04-23 14:52 | PN ---
Progress Note - Progress Note Date of Service: 04/23/17 SOAP: Subjective: []No events ON. Still intubated on vent.On propofol. AREN Drains in and functioning . On Abx IV. Intraoperative wound cultures positive for Staph. Objective: []VSS Wound s,c,d. AREN drains serosanguineous , total volume noted in chart. AA/I. RADHA, Face symetric, tongue midline. Mouths words. Follows commands. Nichole well, good hand e m assembler bilaterally, bilateral foot PF/DF 4-5/5. Sensory grossly intact to light touch, exam limited, grimaces to pain to all extremities. Assessment: []76 yom POD#1 multilevel laminectomies for holospinal epidural abscess Plan: []Monitor VS, Neurochecks. Monitor wound, AREN drain output. Monitor labs. WBC improved. HT 26. Received RBC postop. Wound change q 2 days. Keep sutures for 6-8 weeks. Nutrition consult. PT/OT when able to participate. Abx per ID TEDS and SCDs. May start SQ heparin tomorrow from NS standpoint. Lt knee aspiration performed by Dr Serrano earlier today positive for infection. Will be scheduled for left knee surgery per Ortho team. Appreciate ICU, IM, Orthopedic care. Discussed in extend with patient's at bedside. Armond Melendrez MD
[2017-04-23] MEDS ORDERED: ceFAZolin 2 GM (*##) 2 GM/100 ML BAG USE CEFA2SOL IVPB ONE (15:23)
[2017-04-23] MEDS ORDERED: EPHEDrine (Pressors)* 50 MG/ML VIAL ONE (15:24)
[2017-04-23] MEDS ORDERED: Vancomycin(*) 1,000 MG VIAL ONE (15:25)
--- NOTE | 2017-04-23 15:37 | CONS ---
CONSULTATION/HISTORY AND PHYSICAL: DATE OF CONSULT: 04/23/17 REASON FOR CONSULTATION: Evaluate for possible infected left knee, total knee arthroplasty. HISTORY OF PRESENT ILLNESS: The patient is a 76-year-old man, retired, with a history of multiple joint arthroplasty surgeries including bilateral total hip arthroplasties and left total knee arthroplasty, who is now postoperative day # 1 from extensive neurosurgical procedure, irrigation and debridement and bony decompression from the cervical to the lumbar spine, done by Dr. Melendrez, yesterday 04/22/17 for an epidural abscess. The patient presented to the emergency room at [facility] [place] on 04/21/17 with worsening back pain, as well as bilateral lower extremity radiculopathy. The patient was noted to have an elevated temperature. The patient was admitted to the hospitalist service and eventually patient had obtained MRIs of the cervical, thoracic and lumbar spines, which demonstrated an extensive epidural abscess. The patient had an elevated white blood cell count, elevated temperature and was noted to be bacteremic with Staphylococcus aureus in the blood cultures obtained on 04/21/17. Intraoperative cultures have also grown Staphylococcus aureus. My colleague, Dr. Soliman, was consulted yesterday, 04/22/17 for possible right shoulder infection in the setting of bacteremia. The patient had been complaining of shoulder pain as well for 3 to 4 weeks according to the patient. Dr. Soliman performed an aspiration of the right shoulder glenohumeral joint. This was a dry aspiration. Dr. Soliman recommended x-rays after the patient's surgery yesterday. Dr. Soliman felt that the patient had right shoulder rotator cuff arthropathy. On examination of that right shoulder, the shoulder could be forward flexed 30 degrees actively, passively to 45 degrees, externally rotated to 45 degrees. The patient did describe some bilateral shoulder pain. The patient discussed with Dr. Franklin some left knee pain and the patient's discussed he has knee pain for several days. Dr. Soliman was re-consulted on 04/22/17 regarding the concern about an infection of the left total knee arthroplasty. She communicated with me and I volunteered to see the patient on the morning of 04/23/17 for a possible left knee infection. The patient's was able to provide some history today but the patient himself was not because he is currently intubated and sedated in an ICU bed, having recovered from his extensive neurosurgical procedure the day prior. ICU team is managing the patient. PAST MEDICAL HISTORY: Hypertension, history of GI bleed in 2013, gout. PAST SURGICAL HISTORY: Partial colon resection secondary to GI bleed, bilateral total hip arthroplasties, left knee arthroplasty, right hand surgery, cataract surgery bilateral eyes, cholecystectomy. CURRENT MEDICATIONS: 1. Norvasc. 2. Multivitamin. 3. Allopurinol. 4. Lovastatin. 5. Diazepam p.r.n. 6. Benadryl p.r.n. 7. Potassium chloride. 8. Bystolic. 9. Percocet as needed. 10. Medrol-Dosepak ALLERGIES: AMOXICILLIN, CELEBREX, LATEX. SOCIAL HISTORY: The patient stopped smoking in 1970. The patient drinks 4 to 5 beers daily. PHYSICAL EXAM: The patient's temperature via Hackett probe 04/23/17 at 12:30 p.m. is heart rate of 65, O2 sat 96%, blood pressure 109/62, respiratory end- tidal CO2 is 32. The patient was seen several times earlier today. He has been intubated throughout. When seen earlier, he would respond to pain, but not open his eyes. Later this morning, he has been too sedated to acknowledge pain. Examination of the patient's left knee revealed a [id number] effusion. There is some warmth about the left knee. Skin: Intact. Surgical incision scar clean, dry and intact. Cap refill less than 2 seconds left foot. Bilateral hip exam shows smooth passive range of motion, but no response. No pain acknowledged with passive range of motion, log roll. Right shoulder was examined briefly twice today. Earlier, the patient had some response to pain when a forward flexion passively was up to 90 degrees. Later when more sedated, the patient could be forward flexed passively to 110 degrees without any response. Passive external and internal rotation at least 45 degrees. LABORATORY DATA: Creatinine 1.27. White blood cell count now 17.6, down from 33.1. IMAGING: No imaging yet performed of the left knee or the right shoulder. ASSESSMENT: 1. Possible left knee infection, total knee arthroplasty. 2. Chronic bilateral versus right shoulder pain, with some recent worsening, status post dry aspirate 04/22/[address] Soliman. 3. Status post extensive neurosurgical irrigation and debridement and decompression, cervical, thoracic, lumbar spine on 04/23/17 for epidural abscess. 4. Bacteremia. 5. History of bilateral total hip arthroplasties in distant past. PLAN: 1. The consult was called with regards to the left knee. Given the effusion, I thought it is very possible that the patient had an infection. 2. We obtained consent from the patient's and performed an aspiration bedside. Approximately 48 cc of luis carlos pus were removed from the left knee with an 18-gauge syringe using appropriate sterile technique. Not knowing when an irrigation debridement could be performed, I then performed a lavage of the patient's left knee, with the patient's , and healthcare proxy's permission. I injected 120 cc of normal saline into the left knee joint and then aspirated this fluid. I did it in 60 cc increments. The patient tolerated this well. 3. I sent the aspirate for cell count, Gram stain, culture, crystals; however, the appearance of the fluid or luis carlos pus made an infected knee a foregone conclusion. 4. Looked into the history of the patient's implants, left total knee arthroplasty. The patient's knee replacement was done by Dr. Daniel Mane in 2004, December 30, 2004 with the [employer] NexGen Legacy, size G femur, size 7 tibia , size 41 patella, 10 mm posterior stabilized polyethylene liner. 5. The patient will need to go to the operating room for an irrigation and debridement and open liner exchange for this infection. 6. Given the patient being intubated and sedated, difficult to examine the hips for possible infection. Therefore, we will order an ultrasound bilateral hips to look for fluid collection about the joint. 7. It is unlikely that the patient's right shoulder is infected based on my colleague's exam and workup yesterday. However, we will obtain an ultrasound of that right shoulder as well since we are ultrasounding the hips. 8. We will obtain x-rays of the left knee and right shoulder. These will be to look for any clear sign of infection, any loosening of hardware in the left knee and any sign of rotator cuff arthropathy or other chronic disease of the right shoulder. [id number]/[facility] #: [id number] MTDD
--- NOTE | 2017-04-23 15:55 | RAD ---
Indication: Sepsis with epidural abscess and visualized inflammation abscess collection deep to the LEFT scapula on April 21, 2017 thoracic spine MRI. RIGHT shoulder and bilateral hip pain. Comparison: April 21, 2017 thoracic spine MRI. April 15, 2017 pelvis radiograph. Technique: Limited ultrasound of the RIGHT shoulder. Limited ultrasound of the bilateral hips. Report: Limited images of the RIGHT shoulder are negative for fluid within the subacromial subdeltoid bursa or effusion at the visualized glenohumeral joint. Images of the hips are limited due to large body habitus. Only the peripheral hip abductor musculature is visualized. No loculated soft tissue plane fluid collections demonstrated at the hips. IMPRESSION: 1. Limited images of the RIGHT shoulder are negative for fluid within the subacromial subdeltoid bursa or effusion at the visualized glenohumeral joint. 2. Images of the hips are limited due to large body habitus. Only the peripheral hip abductor musculature is visualized. No loculated soft tissue plane fluid collections demonstrated at the hips.
[2017-04-23] MEDS ORDERED: Morphine INJ* 10 MG/ML 1 ML CARPUJECT ONE (16:09)
[2017-04-23] MEDS ORDERED: Phenylephrine INJ* 10 MG/ML 1 ML VIAL (10 MG) ONE (17:03)
[2017-04-23] MEDS ORDERED: Midazolam* 1 MG/ML 2 ML VIAL (2 MG) ONE (17:24)
--- NOTE | 2017-04-23 18:36 | PN ---
Date of Service: 04/23/17 Critical Care Services: 76 y/o male with staph aureus bacteremia complicated by extensive epidural abscess formation and septic arthritis. In the past 2 days, has undergone multiple laminectomies as well as surgical debridement of the left knee. Is currently on a ventilator following the procedure on the left knee. Is hemodynamically stable and oxygenating well. Only significant PMH is ETOH abuse , with claiming no ETOH intake over the past two weeks. Vital Signs: Temp Pulse Resp BP SpO2 FiO2 98.6 F 60 12 128/66 99 30 Physical Exam: Gen:Unresponsive (on propofol) HEENT: Scleral edema Lungs: Clear Cardiac: Reg rhythm. Mo murmurs. Abdomen:Not distended. Extremities: No cyanosis Neuro:unable to evaluate on propofol. Fluid Balance (Past 24 Hours): 04/23/17 06:59 Intake Total 1958 Output Total 1975 Balance -17 Weight 218 lb Intake: IV Fluids 1678 NS (0.9%) 1333 NS 50ML, Cefazolin 2G Oxacillin 345 IVPB 100 NS (0.9%) Oxacillin 100 Medicated IV 180 CC - Propofol/Diprivan 180 Oral Output: AREN #1 425 AREN #2 AREN #3 Urine 200 Hackett 1350 Other: # Bowel Movements Other Amount Description AREN drains: 4 # Voids Labs: 04/22/17 04/22/17 04/23/17 19:45 19:45 00:48 WBC 28.3 H RBC 2.91 L Hgb 9.6 L Hct 28 L MCV 97 H MCH 33 H MCHC 34 RDW 14 Plt Count 344 ABG pH 7.37 ABG pCO2 38 ABG pO2 255 H ABG HCO3 22.6 ABG O2 Saturation 99.9 H ABG Base Excess -3.0 L Sodium 139 Potassium 4.2 Chloride 112 H Carbon Dioxide 22 Anion Gap 5 BUN 43 H Creatinine 1.08 Glucose 186 H Calcium 6.6 L Magnesium 2.2 Total Bilirubin 2.00 H AST 49 H ALT 73 H Alkaline Phosphatase 69 Total Protein 4.0 L Albumin 1.8 L 04/23/17 04/23/17 04/23/17 00:48 00:48 00:48 WBC 19.5 H RBC 2.84 L Hgb 9.1 L Hct 27 L MCV 95 H MCH 32 H MCHC 34 RDW 16 H Plt Count 242 MPV 8 Neut % (Auto) 90.0 H Lymph % (Auto) 2.3 L [place] % (Auto) 7.6 H Eos % (Auto) 0 Baso % (Auto) 0.1 Absolute Neuts (auto) 17.5 H Absolute Lymphs (auto) 0.5 L Absolute Monos (auto) 1.5 H Absolute Eos (auto) 0 Absolute Basos (auto) 0 Absolute Nucleated RBC 0 Nucleated RBC % 0 INR (Anticoag Therapy) 1.18 H APTT 35.6 ABG pH 7.44 ABG pCO2 31 L ABG pO2 128 H ABG HCO3 23.0 ABG O2 Saturation 99.2 H ABG Base Excess -2.5 L Respiration Rate 14 O2 Delivery Device ventilator Ventilator Type 600 Vent Mode apv FiO2 50 Inspiratory Time 1.0 PEEP 5 Sodium Potassium Chloride Carbon Dioxide Anion Gap BUN Creatinine Est GFR ( Amer) Est GFR (Non-Af Amer) BUN/Creatinine Ratio Glucose Calcium Magnesium Total Bilirubin AST ALT Alkaline Phosphatase Total Protein Albumin Globulin Albumin/Globulin Ratio Fluid Source Fluid Volume Fluid Color Fluid Appearance Fluid WBC Fluid RBC Fluid Tot Cell Count Fluid Neutrophils Fluid Lymphocytes Fluid Other Cells Fluid Cell Count Rvw By Fluid Crystals Blood Type Antibody Screen Crossmatch 04/23/17 04/23/17 04/23/17 06:01 06:01 10:30 WBC 17.6 H RBC 2.79 L Hgb 9.2 L Hct 26 L MCV 94 MCH 33 H MCHC 35 RDW 16 H Plt Count 247 MPV 8 Neut % (Auto) 92.6 H Lymph % (Auto) 2.0 L [place] % (Auto) 5.3 Eos % (Auto) 0 Baso % (Auto) 0.1 Absolute Neuts (auto) 16.0 H Absolute Lymphs (auto) 0.3 L Absolute Monos (auto) 0.9 H Absolute Eos (auto) 0 Absolute Basos (auto) 0 Absolute Nucleated RBC 0 Nucleated RBC % 0.1 INR (Anticoag Therapy) APTT Patient Temperature ABG pH ABG pH (Temp Correct) ABG pCO2 ABG pCO2 (Temp Corrct ABG pO2 ABG pO2 (Temp Correct ABG HCO3 ABG O2 Saturation ABG Base Excess Respiration Rate O2 Delivery Device Ventilator Type Vent Mode FiO2 Inspiratory Time PEEP Pressure Support Pressure Control EPAP IPAP BiPAP Sodium Potassium Chloride Carbon Dioxide Anion Gap BUN 49 H Creatinine 1.27 H BUN/Creatinine Ratio Glucose Calcium Magnesium Total Bilirubin AST ALT Alkaline Phosphatase Total Protein Albumin Globulin Albumin/Globulin Ratio Fluid Source Fluid Volume Fluid Color Fluid Appearance Fluid WBC Fluid RBC Fluid Tot Cell Count Fluid Neutrophils Fluid Lymphocytes Fluid Other Cells Fluid Cell Count Rvw By Fluid Crystals None seen Blood Type Antibody Screen Crossmatch 04/23/17 10:30 WBC RBC Hgb Hct MCV MCH MCHC RDW Plt Count MPV Neut % (Auto) Lymph % (Auto) [place] % (Auto) Eos % (Auto) Baso % (Auto) Absolute Neuts (auto) Absolute Lymphs (auto) Absolute Monos (auto) Absolute Eos (auto) Absolute Basos (auto) Absolute Nucleated RBC Nucleated RBC % INR (Anticoag Therapy) APTT Patient Temperature ABG pH ABG pH (Temp Correct) ABG pCO2 ABG pCO2 (Temp Corrct ABG pO2 ABG pO2 (Temp Correct ABG HCO3 ABG O2 Saturation ABG Base Excess Respiration Rate O2 Delivery Device Ventilator Type Vent Mode FiO2 Inspiratory Time PEEP Pressure Support Pressure Control EPAP IPAP BiPAP Sodium Potassium Chloride Carbon Dioxide Anion Gap BUN Creatinine Est GFR ( Amer) Est GFR (Non-Af Amer) BUN/Creatinine Ratio Glucose Calcium Magnesium Total Bilirubin AST ALT Alkaline Phosphatase Total Protein Albumin Globulin Albumin/Globulin Ratio Fluid Source Synovial fluid Fluid Volume 3 Fluid Color Yellow Fluid Appearance Cloudy Fluid WBC 59549 Fluid RBC 31701 Fluid Tot Cell Count 100 Fluid Neutrophils 94 Fluid Lymphocytes 6 Fluid Other Cells 1 Fluid Cell Count Rvw By Fluid Crystals Blood Type Antibody Screen Crossmatch Studies: None Nutrition: NPO postop Impression: 1. Multiple life-threatening staphylococcal infections (bacteremia, epidural abscesses, septic arthritis). Patient is stable following multiple laminectomies followed by surgical debridement of the left knee. There are no signs of ETOH withdrawal at present. Plan: 1. Wean off ventilator and extubate when awakens. 2. Patient will need aggressive nutrition support and physical therapy. 3. ID service following for antibiotic Rx (oxacillin 2g IV q 4h at present). 4. Patient will need MIRLANDE to r/o endocarditis. Critical Care Time: 60 minutes (not including time spent with patient's ).
[2017-04-23] MEDS: Enoxaparin(*) 40 MG/0.4 ML SYR SUBCUT SCH (20:00)
[2017-04-23] MEDS ORDERED: Chlorhexidine MOUTHWASH 0.12%* 15 ML UDC ONE (22:37)
[2017-04-24] MEDS: Oxacillin(*) 2 GM in NS 0.9% 100 ML* 100 ML IVPB SCH ×6 (01:00→20:41)
[2017-04-24] MEDS: NS 0.9% 1000 ML* 1,000 ML IV SCH (01:01)
[2017-04-24] MEDS: Propofol* 1000 MG (10 MG/ML 100 ml) @ Per Protocol (in ICU Pyxis) IV SCH (01:14)
[2017-04-24] MEDS ORDERED: NS 0.9% 500 ML* 500 ML IV ONE (03:15)
[2017-04-24] MEDS: Chlorhexidine MOUTHWASH 0.12%* 15 ML UDC TOPICAL SCH ×3 (04:19→12:12)
[2017-04-24] MEDS: HYDROmorphone INJ* 2 MG/ML CARPUJECT SYRINGE IV SLOW PU PRN ×4 (04:45→16:06)
[2017-04-24 04:48] LABS: Hematocrit 23 % (42-52); Hemoglobin 7.6 g/dl (14.0-18.0); Mean Corpuscular HGB Conc 34 g/dl (31-36); Mean Corpuscular Hemoglobin 32 pg (27-31); Mean Corpuscular Volume 96 fL (80-94); Mean Platelet Volume 8 um3 (7.4-10.4); Platelet Count 221 10^3/ul (150-450); Red Blood Count 2.38 10^6/ul (4.0-5.4); Red Cell Distribution Width 16 % (10.5-15); White Blood Count 13.3 10^3/ul (3.5-10.8)
[2017-04-24 04:56] LABS: EGFR Non-African American 41.6 (>60)
--- NOTE | 2017-04-24 07:39 | RAD ---
HISTORY: Sepsis, question pneumonia COMPARISONS: April 22, 2017 VIEWS: 2: frontal portable view of the chest at 5:45 AM FINDINGS: LINES AND TUBES: An endotracheal tube is noted with the tip overlying the trachea at the level of the clavicles. A gastric tube is noted, with the tip in the left upper quadrant in a prepyloric position.. A right internal jugular venous catheter is noted with the tip overlying the superior vena cava. Surgical drains are noted overlying the spine CARDIOMEDIASTINAL SILHOUETTE: The cardiomediastinal silhouette is normal for portable technique. PLEURA: The costophrenic angles are sharp. No pleural abnormalities are noted. LUNG PARENCHYMA: There is confluent alveolar opacification of the retrocardiac left lower lung. ABDOMEN: The upper abdomen is clear. There is no subphrenic gas. BONES AND SOFT TISSUES: No bone or soft tissue abnormalities are noted. IMPRESSION: LINES AND TUBES ABOVE. LEFT LOWER LOBE ATELECTASIS VERSUS CONSOLIDATION
[2017-04-24] MEDS: Famotidine IV* 10 MG/ML 2 ML (20 mg) IV SCH (08:08)
[2017-04-24] MEDS: Thiamine TAB* 100 MG TAB PO SCH (08:08)
[2017-04-24] MEDS: Allopurinol TAB* 100 MG PO SCH (08:08)
[2017-04-24] MEDS: Potassium Chloride LIQUID* 20 MEQ PACKET PO SCH ×2 (08:08→20:23)
[2017-04-24] MEDS: Folic Acid TAB* 1 MG PO SCH (08:08)
[2017-04-24] MEDS: Multivitamins ADULT w/MIN LIQ* 15 ML UDC PO SCH (08:08)
[2017-04-24] MEDS ORDERED: Famotidine IV * 20 MG in NS 0.9% 100 ML* 100 ML IVPB SCH (09:00)
[2017-04-24] MEDS: CMCS: Nebivolol TAB (NF) 2.5 MG TAB PO SCH (09:36)
--- NOTE | 2017-04-24 09:59 | PN ---
Progress Note - Progress Note Date of Service: 04/24/17 SOAP: Subjective: POD #1 Left knee I&D with poly exchange. No overnight events, pt remains on ventilator. Objective: Vitals: Temp Pulse Resp BP Pulse Ox 99.5 F 70 16 113/46 95 04/24/17 07:00 04/24/17 07:00 04/24/17 07:00 04/24/17 03:41 04/24/17 07:00 Gen: Sedated and intubated LLE: Dressing C/D/I. Hemovac with about 300cc s/s drainage, not actively draining. 2+ DP pulse Labs: Laboratory Results - last 24 hr 04/22/17 04/23/17 04/23/17 04:11 10:30 10:30 WBC RBC Hgb Hct MCV MCH MCHC RDW Plt Count MPV Sodium Potassium Chloride Carbon Dioxide Anion Gap BUN Creatinine Est GFR ( Amer) Est GFR (Non-Af Amer) BUN/Creatinine Ratio Glucose Calcium Fluid Source Synovial fluid Fluid Volume 3 Fluid Color Yellow Fluid Appearance Cloudy Fluid WBC 59081 Fluid RBC 49906 Fluid Tot Cell Count 100 Fluid Neutrophils 94 Fluid Lymphocytes 6 Fluid Other Cells 1 Fluid Cell Count Rvw By Fluid Crystals None seen Blood Type O Positive Antibody Screen Negative Crossmatch See Detail 04/24/17 04/24/17 04:32 04:32 WBC 13.3 H RBC 2.38 L Hgb 7.6 L Hct 23 L MCV 96 H MCH 32 H MCHC 34 RDW 16 H Plt Count 221 MPV 8 Sodium 144 Potassium 3.9 Chloride 117 H Carbon Dioxide 22 Anion Gap 5 BUN 50 H Creatinine 1.63 H Est GFR ( Amer) 53.5 Est GFR (Non-Af Amer) 41.6 BUN/Creatinine Ratio 30.7 H Glucose 102 H Calcium 6.6 L Fluid Source Fluid Volume Fluid Color Fluid Appearance Fluid WBC Fluid RBC Fluid Tot Cell Count Fluid Neutrophils Fluid Lymphocytes Fluid Other Cells Fluid Cell Count Rvw By Fluid Crystals Blood Type Antibody Screen Crossmatch Assessment: POD #1 Left knee I&D with poly exchange Plan: Hemovac pulled today, tip intact Dressing change tomorrow. Will need PT/OT once extubated
--- NOTE | 2017-04-24 10:52 | PN ---
Progress Note - Progress Note Date of Service: 04/24/17 SOAP: Subjective: [S/p cervical to lumbar multi-level decompression for epidural abscess wash out. Patient extubated this morning. No neurological changes overnight. ] Objective: [General: Extubated and awake. Able to follow some commands with prompting. Neuro: Pupils equal and reactive, withdraws to pain. No ankle clonus. Hoffmans negative bilaterally. Wiggles toes bilaterally. Extremities: Pedal pulses 2+ and equal. Bandage to left knee/lower extremity. Incision: Wound drains in place and functioning. Wound drain output 04/23/17 04/23/17 04/24/17 14:10 21:48 05:50 Output, AREN #1 20 20 25 Output, AREN #2 50 38 40 Output, AREN #3 30 30 20 Output, Other AREN #4 40 AREN #4 15 ml AREN #4 20 ml Amount Description ] Assessment: [S/p multilevel decompression cervical to lumbar. Patient stable. ] Plan: [1. Continue pain management 2. Neuro checks 3. Continue to monitor drain output]
[2017-04-24 11:39] LABS: Hematocrit 27 % (42-52); Hemoglobin 8.9 g/dl (14.0-18.0)
[2017-04-24] MEDS ORDERED: HYDROmorphone INJ* 1 MG/ML CARPUJECT SYRINGE ONE (12:04)
--- NOTE | 2017-04-24 14:57 | OP ---
OPERATIVE REPORT: DATE OF OPERATION: 04/22/17 DATE OF : 44 SURGEON: Allison Melendrez MD. SLEEVE MAKER: DEANDRE Joseph. The procedure was performed with a surgical garment assembly supervisor because of the complexity of the case. ANESTHESIA: General. PRE-OP DIAGNOSIS: Extensive spinal epidural abscess. POST-OPERATIVE DIAGNOSIS: Extensive spinal epidural abscess. OPERATIVE PROCEDURE: The patient underwent multilevel skip laminectomies at L3 , L4 and L5; T12, T8, T9, T10, T5, T6, T2, T3 and left C6-7 for evacuation of epidural spinal abscess. ESTIMATED BLOOD LOSS: 800 cc. COMPLICATIONS: None. SUMMARY: The patient is a very pleasant 76-year-old gentleman with history of gout, hypertension and history of multiple arthropathies in the past who sustained a fall a few weeks ago, approximately 1 week and a half ago he started experiencing back pain radiating to the lower extremities with difficulty walking. The patient finally came to the emergency room and MRI revealed extensive epidural abscess. He was offered the option of surgical intervention. After explaining expectations, limitations and possible complications of the procedure with complications including but not limited to bleeding, infection, risk of injury to adjacent structures, paralysis, , need for additional procedures, stroke, blindness, cancer, instability, spinal fluid leak, need for additional procedure in the future, inability to remove all infection. This was explained in detail to the patient and the patient's who was agreeable to proceed with surgery and informed consent was obtained. The patient's understood that his condition may not improve and in fact may get worse after the surgery and that he may need to have additional procedure in the future and that the intraoperative plan may be modified according to intraoperative findings and condition. DESCRIPTION OF PROCEDURE: The patient was brought to the operating room and was placed under general anesthesia by the anesthesia team. He was carefully positioned prone on the Declan frame on the Justin table and all bony prominences were meticulously padded. His skin was prepped and draped in the standard fashion. After appropriate surgical pause and the patient identification, a midline incision was marked on the skin over the cervical, thoracic and lumbar spine. Incision was performed with a #10 surgical blade and was advanced with Bovie cautery initially over the lumbar spine and then after each stage of decompressive laminectomy was performed, it was advanced into the lower thoracic, upper thoracic and lower cervical area respectively. At each stage, the dorsal fascia was divided with Bovie cautery on both sides of the midline and the paraspinal musculature was elevated with use of periosteal elevator and Bovie cautery. Self-retaining retractors were introduced further into the field. After intraoperative confirmation of appropriate surgical level with intraoperative x-ray, a laminectomy was performed at L3, L4, and L5. During the initial lower lumbar region exposure, a significant amount of purulent material was evident and confirmed the presence of paraspinal abscess. Abscess cultures were sent at that time. After the laminectomy was completed with use of Leksell rongeurs, Kerrison punches and high-speed drill, a posterior epidural flegmon was encountered. After meticulous hemostasis and copious irrigation, the incision was then extended cephalad into the lower thoracic area. A T12 laminectomy was performed through a left ipsi- contralateral approach with the use of high-speed drill and Kerrison punches. Significant amount of purulent material under tension was encountered and cultures were sent as well as copious irrigation was performed. Then, the wound was opened more cephalad and a right T8, T9 and T10 ipsi-contralateral approach was performed with laminectomy of these levels with the use of high- speed drill and Kerrison punches. Significant amount of purulent material was encountered again and copious irrigation and meticulous hemostasis was performed. Similarly, the incision was extended more cephalad and a left T5-6 laminectomy was performed from the ipsilateral contralateral approach and similarly a left T2-3 laminectomy with ipsi-contralateral approach was performed as well as a left C6-7 hemilaminotomy. All purulent material encountered was gently evacuated and the wounds were copiously irrigated and meticulous hemostasis was confirmed. A small bore catheter was then used to irrigate the epidural space between the laminectomies to confirm that meticulous evacuation of the epidural abscess has been achieved. The wound was then copiously irrigated with pulse lavage and meticulous hemostasis was confirmed after removal of the self-retaining retractors. Four AREN drains were placed and tunneled through separate stab wound incisions. The incision was then closed by layers after placement of 1 g of vancomycin powder with number 1 Vicryl sutures in continuous interrupted fashion for the dorsal fascia, and inverted interrupted fashion for the subcutaneous tissue. Skin was approximated with Number 1 prolene suture. At the end of the procedure, all counts were reported to be correct. The patient remained hemodynamically stable throughout the case. The procedure was done with the assistance of a physician hair assistant because of the complexity of the case. At the end of procedure, the patient was gently turned supine and was transferred to the intensive care unit in an excellent condition. [id number]/[facility] #: [id number] JOCELYN
[2017-04-24] MEDS ORDERED: fentaNYL* 50 MCG/ML 2 ML VIAL (100 MCG VIAL) IV SLOW PU PRN ×2 (16:31→18:31)
--- NOTE | 2017-04-24 17:40 | PN ---
Date of Service: 04/24/17 Critical Care Services: Weaned and extubated this AM. Is awake but confused. Receiving fentanyl for pain. Vital Signs: Temp Pulse Resp BP SpO2 FiO2 100.4 F 77 17 129/48 95 45 Physical Exam: Gen:Opens eyes to command HEENT:OP clear Lungs: coarse rhonchi Abdomen:Not distended Extremities: No cyanosis. 1-2+edema Fluid Balance (Past 24 Hours): 04/24/17 06:59 Intake Total 3263 Output Total 1473 Balance +1790 Weight 227 lb Intake: IV Fluids 2910 NS (0.9%) 2367 NS 50ML, Cefazolin 2G 50 Oxacillin 493 IVPB 210 NS (0.9%) Oxacillin 210 Medicated IV 143 CC - Propofol/Diprivan 143 Oral Packed Cells Output: G Tube 100 AREN #1 65 AREN #2 128 AREN #3 80 Urine Hackett 1100 Other: # Bowel Movements Other Amount Description AREN #4 20 ml # Voids Labs: 04/22/17 04/24/17 04/24/17 04:11 04:32 04:32 WBC 13.3 H RBC 2.38 L Hgb 7.6 L Hct 23 L MCV 96 H MCH 32 H MCHC 34 RDW 16 H Plt Count 221 Sodium 144 Potassium 3.9 Chloride 117 H Carbon Dioxide 22 BUN 50 Creatinine 1.63 Est GFR (Non-Af Amer) 41.6 Glucose 102 H Blood Type O Positive Antibody Screen Negative 04/24/17 11:15 WBC RBC Hgb 8.9 L Hct 27 L MCV MCH MCHC RDW Plt Count MPV Sodium Potassium Chloride Carbon Dioxide Anion Gap BUN Creatinine Est GFR ( Amer) Est GFR (Non-Af Amer) BUN/Creatinine Ratio Glucose Calcium Blood Type Antibody Screen Crossmatch Studies: CXR: No infiltrates Nutrition: None Impression: Two issues of concern: 1. Renal impairment despite positive fluid balance (estimated GFR down from 125 to 40 ml/min) - Most likely cause is sepsis. 2. Confusion - could be residual anesthesia effect. Plan: Try to feed as soon as feasible. Keep TASSEL SNIPPER drugs to a minimum (if possible). Start physical therapy when more alert. Critical Care Time: 40 minutes (including time to extubate).
[2017-04-24] MEDS: fentaNYL PCA* 20 ML PCA SCH (19:44)
[2017-04-24] MEDS: fentaNYL* 50 MCG/ML 2 ML VIAL (100 MCG VIAL) IV SLOW PU PRN ×2 (20:06→22:52)
[2017-04-24] MEDS: Enoxaparin(*) 40 MG/0.4 ML SYR SUBCUT SCH (20:07)
--- NOTE | 2017-04-24 21:07 | OP ---
OPERATIVE REPORT: DATE OF OPERATION: 04/23/17 DATE OF : 44 SURGEON: Doc Galan MD SUPERVISOR CLOTH WINDING: DEANDRE Adams ANESTHESIOLOGIST: Eun Alva MD ANESTHESIA: General endotracheal anesthesia. 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 POST-OP DIAGNOSIS: Infected left total knee arthroplasty. OPERATIVE PROCEDURE: 1. Open incision, irrigation and debridement, left knee, left total knee arthroplasty. 2. Exchange of liner, left total knee arthroplasty. 3. Open ostectomy, lateral patella, left knee. ANTIBIOTICS: Ancef 2 g IV were given after cultures were taken. IV FLUIDS: 1500 cc crystalloid. TOURNIQUET TIME: 20 minutes at 300 mmHg. SPECIMENS: Culture swabs, aerobic and anaerobic from joint fluid. IRRIGANT: 18 L of saline infused with bacitracin at 50,000 units per 3 L. IMPLANTS: New polyethylene liner, Frederick NexGen Legacy 10 mm posterior stabilized to be congruent with a G femur and a 7 tibia. Additional Antibiotic: Vancomycin powder 1 g infused in wound. ESTIMATED BLOOD LOSS: Less than 100 cc. COMPLICATIONS: None. INDICATIONS FOR PROCEDURE: The patient is a 76-year-old man, retired, 1 day status post irrigation and debridement and bony decompression of an epidural abscess in the cervical thoracic and lumbar spine by Dr. Melendrez, who was diagnosed by aspiration this morning by me with an infected left total knee arthroplasty. See my consultation and history and physical note from 04/23/17 for exhausted details of the patient's recent complicated past medical history. Patient's aspirate today demonstrated 48 cc of luis carlos pus. Cell count was consistent with infection and Gram stain and culture were positive for Staphylococcus aureus. The patient's status was discussed with the patient's healthcare proxy as the patient was sedated and intubated in the ICU. Confirmed with ICU staff the patient is stable enough for a second surgery. Confirmed with neurosurgical team. No precautions besides a well positioned spine was required intraoperatively. Moved forward with surgical management. DESCRIPTION OF PROCEDURE: Preoperatively in the PACU, I obtained a written consent from the patient's and healthcare proxy. In the ICU, the patient' s operative extremity was marked. The patient was taken to the operating room and transferred to the operating room table. Patient was already sedated and intubated. Tourniquet was placed around the left proximal thigh. The left lower extremity was prepped with chlorhexidine about the foot and ankle and then ChloraPrep throughout the remaining leg as well as foot and ankle. Draping. Surgical time-out was performed. A [employer] Knee Positioner system was used. After the surgical time- out, an Esmarch was applied and the tourniquet was elevated to 300 mmHg. Anterior midline longitudinal skin incision was made over the prior area of the skin incision scar. Exchanged knifes and dissected down to the extensor mechanism. A medial parapatellar arthrotomy incision was made. This was done with the knee in the 90 degrees of flexion. I encountered the joint space and some fluid, slightly purulent appearing. Anaerobic and aerobic culture swabs were obtained. I then directed that the Ancef 2 g antibiotics could be provided. The patient had received oxacillin, but that was at least 2 to 3 hours earlier which he had been given by ICU staff for his Staphylococcus aureus and epidural abscess. Continued incision down to tibial plateau. Extended knee. I released a tissue of the anterior aspect of the medial tibial plateau. I then released with Bovie electrocautery tissue, capsule and scar tissue from the anterior aspect of the lateral tibial plateau. Released a curved osteotome along the medial tibial plateau as well as the lateral tibial plateau. The patient's patella was stuck down, not significantly immobile. Did not mathew easily. There was some scar tissue circumferentially around it. There was also a clearly some bare, uncovered patella laterally. I released scar tissue circumferentially around the patella. I removed exposed bone, that can lead to pain as well as scarring about the lateral patella, an ostectomy performed with rongeurs, removed exposed bone uncovered by paella prosthesis about the lateral patella. This release around the patella greatly freed up the extensor mechanism and patella; however, eversion was still not easily obtained and so we would translate the patella for exposure rather than everting. With the knee in extension, I removed a significant synovitis at the medial and lateral gutter and suprapatellar space. No luis carlos evidence of walled off pus was encountered throughout the knee. Lines was easily loosened and taken out. Some synovial tissue about the joint line was removed with rongeur, curette, Bovie electrocautery. Fluid at this point still looked slightly purulent. Removed fibrous tissue from the inside of the box at the femoral component that led to cancellous bone, soft. I tested the stability of both of the components, femoral and tibial and they seemed well seated and did not move at all. Likewise patellar component, a polyethylene, was not at all mobile. Irrigation was provided in multiple points between the debridement. I would use pulsed lavage to irrigate with my bacitracin infused saline. We typically irrigate with 2 L or more at a time. I then had irrigated with at least 12 L of fluid. Knee seemed to still have intact medial and lateral collateral ligaments and decided to replace the liner with the same size insert, 10 mm. No more purulence was viewed anywhere and irrigant aspirated was clear. New liner was inserted into place, locked. Its stability was confirmed with varus, valgus, anterior and posterior stress testing as well as nice full range of motion testing. Irrigation. Hemovac drain was in place and existed superolateral about the knee through the skin. Irrigation. Vancomycin 1 g powder was placed about the joint, mostly but also the last bit of it to come in the subcutaneous tissue overlying the capsule. I closed the medial parapatellar arthrotomy with a figure eight stitches using PDS #1 suture. Also placed 2 to 3 stitches with Prolene 0 suture. I then closed the subcutaneous tissue with buried simple stitches using PDS 2.0 suture. Closure of the skin with shadia. Hemovac was stabilized, on auto suction. Xeroform was placed on the skin incision followed by 4x4, ABDs, and sterile Webril. Michael bandage from foot to proximal thigh. Tourniquet was dropped. The patient was transferred back to the ICU sedated and intubated. DISPOSITION: The patient will continue to receive oxacillin per Infectious Disease and ICU staff. We will follow up intraoperative cultures as we will aspirate cultures. The patient will be awakened and extubated per ICU time table. Patient will receive pain medication as needed, oral and IV. Anticoagulation is recommended. There were some concerns about anticoagulant of strength being used in the setting of recent spinal procedure. I also talked about using subcu heparin and I am okay with that. Patient will not begin physical therapy until he is awake and then extubated. Patient is weightbearing as tolerated, left lower extremity. We will follow white blood cell count and perhaps ESR and CRP at some point once the white blood cell count normalizes. I should see the patient in clinic approximately 14 days postoperatively. He is discharged from the hospital. We will obtain x-rays at that clinic visit. [id number]/[facility] #: [id number] JOCELYN
[2017-04-24] MEDS ORDERED: Haloperidol INJ IV/IM* 5 MG/ML AMP IV PRN (21:18)
[2017-04-24] MEDS ORDERED: Haloperidol INJ IV/IM* 5 MG/ML AMP ONE (21:20)
[2017-04-25] MEDS: Oxacillin(*) 2 GM in NS 0.9% 100 ML* 100 ML IVPB SCH ×6 (00:32→22:00)
[2017-04-25] MEDS: Haloperidol INJ IV/IM* 5 MG/ML AMP IM PRN ×2 (00:32→05:28)
[2017-04-25] MEDS: fentaNYL* 50 MCG/ML 2 ML VIAL (100 MCG VIAL) IV SLOW PU PRN ×3 (04:18→15:18)
[2017-04-25 04:51] LABS: Hematocrit 26 % (42-52); Hemoglobin 8.7 g/dl (14.0-18.0); Mean Corpuscular HGB Conc 34 g/dl (31-36); Mean Corpuscular Hemoglobin 31 pg (27-31); Mean Corpuscular Volume 94 fL (80-94); Mean Platelet Volume 8 um3 (7.4-10.4); Platelet Count 235 10^3/ul (150-450); Red Blood Count 2.78 10^6/ul (4.0-5.4); Red Cell Distribution Width 16 % (10.5-15); White Blood Count 18.9 10^3/ul (3.5-10.8)
[2017-04-25 05:06] LABS: EGFR Non-African American 40.4 (>60)
--- NOTE | 2017-04-25 07:28 | RAD ---
INDICATION: Question pneumonia COMPARISON: April 24, 2017 TECHNIQUE: An AP portable view obtained at 0555 hours is submitted. FINDINGS: Bones/Soft Tissues: There are no acute bony findings. There is a right IJ catheter, unchanged. Cardiomediastinal: The cardiomediastinal silhouette is normal. Lungs: There is a small infiltrate or atelectasis in left lung base. Pleura: Tiny bilateral pleural effusions are suspected. Other: None IMPRESSION: MILD INFILTRATE OR ATELECTASIS LEFT LUNG BASE. SUSPECT TINY BILATERAL PLEURAL EFFUSIONS. NO SIGNIFICANT CHANGE.
--- NOTE | 2017-04-25 07:50 | PN ---
Progress Note - Progress Note Date of Service: 04/25/17 SOAP: Subjective: [S/p cervical to lumbar multilevel decompression for epidural abscess washout, POD #3. Extubated yesterday, remains confused. Moves upper and lower extremities spontaneously. No neuro events overnight.] Objective: [ Vital Signs: Temp Pulse Resp BP Pulse Ox 99.0 F 70 15 158/63 96 04/25/17 06:00 04/25/17 06:00 04/25/17 06:00 04/25/17 06:00 04/25/17 06:00 General: Awakes to voice. Oriented to person and hospital. Neuro: Responds verbally to pain. Pupils equal and reactive. Able to follow some commands; wiggles toes. Negative hoffmans and ankle clonus. Extremities: Dressing to left knee/lower extremity. Incision: Wound drains in place and functioning well. ] Assessment: [S/p multilevel decompression cervical to lumbar.] Plan: [1. Continue neuro checks. 2. Continue pain management.]
--- NOTE | 2017-04-25 08:27 | PN ---
Progress Note - Progress Note Date of Service: 04/25/17 SOAP: Subjective: POD #2 Left knee I&D with poly exchange. Pt extubated but not answering questions. Objective: Vitals: Temp Pulse Resp BP Pulse Ox 99.0 F 70 15 158/63 96 04/25/17 06:00 04/25/17 06:00 04/25/17 06:00 04/25/17 06:00 04/25/17 06:00 Gen: Somnolent but arousable LLE: Dressing C/D/I. +f/e at ankles and MTPs, 2+ DP pulse Labs: Laboratory Results - last 24 hr 04/22/17 03/05/0904/25/17 04:11 11:15 04:31 WBC RBC Hgb 8.9 L Hct 27 L MCV MCH MCHC RDW Plt Count MPV Sodium 150 H Potassium 3.6 Chloride 122 H Carbon Dioxide 21 L Anion Gap 7 BUN 48 H Creatinine 1.67 H Est GFR ( Amer) 52.0 Est GFR (Non-Af Amer) 40.4 BUN/Creatinine Ratio 28.7 H Glucose 94 Calcium 7.2 L Blood Type O Positive Antibody Screen Negative Crossmatch See Detail 04/25/17 04:31 WBC 18.9 H RBC 2.78 L Hgb 8.7 L Hct 26 L MCV 94 MCH 31 MCHC 34 RDW 16 H Plt Count 235 MPV 8 Sodium Potassium Chloride Carbon Dioxide Anion Gap BUN Creatinine Est GFR ( Amer) Est GFR (Non-Af Amer) BUN/Creatinine Ratio Glucose Calcium Blood Type Antibody Screen Crossmatch Assessment: POD #2 Left knee I&D with poly exchange Plan: Cont abx per ID Will do dressing change tomorrow when pt is more awake Will continue to follow
[2017-04-25] MEDS: Folic Acid TAB* 1 MG PO SCH (11:39)
[2017-04-25] MEDS: Allopurinol TAB* 100 MG PO SCH (11:39)
[2017-04-25] MEDS: Multivitamins ADULT w/MIN LIQ* 15 ML UDC PO SCH (11:40)
[2017-04-25] MEDS: Potassium Chloride LIQUID* 20 MEQ PACKET PO SCH ×2 (11:40→22:00)
[2017-04-25] MEDS: CMCS: Nebivolol TAB (NF) 2.5 MG TAB PO SCH (11:40)
[2017-04-25] MEDS: Thiamine TAB* 100 MG TAB PO SCH (11:40)
[2017-04-25] MEDS: Famotidine IV* 10 MG/ML 2 ML (20 mg) IV SCH (12:01)
[2017-04-25] MEDS ORDERED: Haloperidol INJ IV/IM* 5 MG/ML AMP IV SLOW PU PRN (15:27)
--- NOTE | 2017-04-25 19:46 | PN ---
Date of Service: 04/25/17 Critical Care Services: Delirium better today - on haldol and fentanyl for pain. Oral intake is poor Vital Signs: Temp Pulse Resp BP SpO2 FiO2 99.1 F 77 19 142/63 96 45 Physical Exam: Gen:Eyes open - responds intermittently to verbal commands (more responsive with ) HEENT:OP clear LUNGS: occasional rhonchi Extremities: Edema right upper arm with maculopapular rash on medial aspect. Fluid Balance (Past 24 Hours): 04/25/17 06:59 Intake Total 3136 Output Total 2338 Balance 798 Weight 231 lb Intake: IV Fluids 2487 LR 1047 NS (0.9%) 715 NS 50ML, Cefazolin 2G Oxacillin 725 IVPB 125 Oxacillin 125 Medicated IV 256 CC - Propofol/Diprivan 256 Packed Cells 268 Output: G Tube AREN #1 50 AREN #2 95 AREN #3 143 Urine Hackett 2000 Other 50 Other: Other Amount Description AREN #4 Labs: 04/25/17 04/25/17 04:31 04:31 WBC 18.9 Hgb 8.7 L Hct 26 L MCV 94 Plt Count 235 Sodium 150 H Potassium 3.6 Chloride 122 H Carbon Dioxide 21 L Anion Gap 7 BUN 48 H Creatinine 1.67 Est GFR (Non-Af Amer) 40.4 Glucose 94 Calcium 7.2 L Studies: none Nutrition: None Impression: 1. Delirium - improving 2. Renal impairment continues - ? sepsis-related 3. Cellulitis right upper arm 4. Right shoulder tenderness - ? etiology Plan: 1. Place feeding tube and start tube feedings - when delirium resolves, can start oral feedings. 2. Ultrasound veins in right upper arm to r/o DVT 3. MRI of right shoulder 4. Physical therapy when mental status improves. Critical Care Time: 45 minutes (not including time for discussions with family).
[2017-04-25] MEDS: Heparin VIAL(*) 5000 UNITS/ML VIAL (FIVE THOUSAND) SUBCUT SCH (22:17)
--- NOTE | 2017-04-25 22:18 | PN ---
Progress Note - Progress Note Date of Service: 04/25/17 SOAP: Subjective: [] No events ON.In ICU. On Haldol for delirium. AREN Drains in and functioning . On Abx IV. Objective: []VSS Wound s,c,d. AREN drains serosanguineous , total volume noted in chart. AAOx1-2. RADHA, Face symetric, tongue midline. Follows commands. Nichole well, good hand rigger up bilaterally, bilateral foot PF/DF 4-5/5. Lt knee sp surgery. Sensory grossly intact to light touch, exam limited, grimaces to pain to all extremities. Assessment: []76 yom POD#3 multilevel laminectomies for holospinal epidural abscess Plan: []Monitor VS, Neurochecks. Monitor wound, AREN drain output. Monitor labs. WBC slightly elevated. Wound change q 2 days. Keep sutures for 6-8 weeks. Nutrition consult. PT/OT when able to participate. Abx per ID TEDS and SCDs. MRI of Rt shoulder ordered by Dr Donald. Appreciate ICU, IM, Orthopedic care. Armond Melendrez MD
[2017-04-25] MEDS: Enoxaparin(*) 40 MG/0.4 ML SYR SUBCUT SCH (22:19)
[2017-04-26] MEDS: Oxacillin(*) 2 GM in NS 0.9% 100 ML* 100 ML IVPB SCH ×6 (00:38→23:54)
[2017-04-26] MEDS: fentaNYL PCA* 20 ML PCA SCH (05:32)
[2017-04-26] MEDS: Heparin VIAL(*) 5000 UNITS/ML VIAL (FIVE THOUSAND) SUBCUT SCH ×3 (05:44→23:55)
[2017-04-26 06:30] LABS: Hematocrit 24 % (42-52); Hemoglobin 8.1 g/dl (14.0-18.0); Mean Corpuscular HGB Conc 33 g/dl (31-36); Mean Corpuscular Hemoglobin 31 pg (27-31); Mean Corpuscular Volume 94 fL (80-94); Mean Platelet Volume 8 um3 (7.4-10.4); Platelet Count 247 10^3/ul (150-450); Red Blood Count 2.58 10^6/ul (4.0-5.4); Red Cell Distribution Width 16 % (10.5-15)
[2017-04-26 06:45] LABS: EGFR Non-African American 47.2 (>60)
--- NOTE | 2017-04-26 07:52 | RAD ---
INDICATION: Feeding tube placement. COMPARISON: Comparison is made with a prior study from one day earlier. TECHNIQUE: A portable view of the chest was obtained. FINDINGS: Cardiac and mediastinal contours appear to be within normal limits. The lungs are underinflated. There is a small left pleural effusion. There is a feeding tube. The catheter appears to be within the right lung and extends laterally over the right lung base. The results of this exam were called to the patient's ICU nurse Denae. IMPRESSION: FEEDING TUBE IN THE RIGHT LUNG. RECOMMEND REPOSITIONING.
[2017-04-26] MEDS: Famotidine IV* 10 MG/ML 2 ML (20 mg) IV SCH (08:39)
[2017-04-26] MEDS: CMCS: Nebivolol TAB (NF) 2.5 MG TAB PO SCH (08:54)
[2017-04-26] MEDS: Allopurinol TAB* 100 MG PO SCH (09:02)
[2017-04-26] MEDS: Folic Acid TAB* 1 MG PO SCH (09:02)
[2017-04-26] MEDS: Thiamine TAB* 100 MG TAB PO SCH (09:03)
[2017-04-26] MEDS: Multivitamins ADULT w/MIN LIQ* 15 ML UDC PO SCH (09:03)
--- NOTE | 2017-04-26 09:05 | RAD ---
INDICATION: RIGHT upper extremity pain and swelling. Intubated ICU patient. COMPARISON: No relevant prior exams available on the [facility] PACS for comparison. TECHNIQUE: Duplex ultrasound of the RIGHT internal jugular, subclavian, axillary, brachial, radial, ulnar, basilic, and cephalic veins. With the exception of the non accessible subclavian vein compressibility of venous segments assessed. Augmentation and phasicity assessed throughout. REPORT: . Patency of the LEFT subclavian vein documented. Acoustic window limited at the RIGHT internal jugular vein due to a bandage Patent RIGHT subclavian, axillary, brachial, radial veins. Assessment of the ulnar vein is limited due to patient's position however it appears grossly patent. Nonocclusive superficial venous thrombosis at the antecubital segment of the cephalic vein. The basilic vein is patent. IMPRESSION: 1. The RIGHT internal jugular vein could not be visualized due to a bandage. 2. No evidence for RIGHT upper extremity deep venous thrombosis. 3. Nonocclusive superficial venous thrombosis at the antecubital segment of the RIGHT cephalic vein.
[2017-04-26] MEDS ORDERED: D5W 1/2 NS 40 Meq KCL 1000 ML* 1,000 ML IV SCH (10:00)
[2017-04-26] MEDS: Potassium Chloride LIQUID* 20 MEQ PACKET PO SCH ×2 (10:47→23:55)
[2017-04-26] MEDS ORDERED: fentaNYL PATCH 25 MCG/HR TRANSDERM SCH (11:00)
--- NOTE | 2017-04-26 11:17 | PN ---
Progress Note - Progress Note Date of Service: 04/26/17 Note: CRITICAL CARE MEDICINE Date: 04/26/17 Time: 1020 SUBJECTIVE: Patient seen and examined. PHYSICAL EXAM: Vital Signs: Reviewed. Neurologic: awakens, but slow and lethargic. answers appropriate but needs time. nonfocal. globally weak. HEENT: pupils equal and reactive. Sclera anicteric. Trachea midline. Cardiovascular: S1 S2 Respiratory: regular, mild rhonchi but clears Abdomen: Soft, nt. No r/g/r. Extremities: Warm. depend edema Access: R IJ LABS: Reviewed. IMAGING: Reviewed. MEDICATIONS: Reviewed. 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 can utilze td if more awake, otherwise may need to hold this as well, but needs a balance of thrive and comfort. nsgy f/u. delirium, multifactorial but less is more at the moment. Cardiovascular: perfusing. holding interstitial water and may be more salt > water overload, but allow water to mobilize with repletion with mare improvement. f/u dynamics without overloading. Respiratory: tolerating. avoid aspirations. Gastrointestinal: swallow eval. would rather allow swallowing but if not getting to abiulity today then can retry ngt and tf for awhile waiting on delirum as he does need nutrition. Renal/Metabolic: NA climbing post mare improvement and salt overload. allow water repletion and eventual na mobilization. bermudez Infectious Disease: oxacillin conotnued. will eventually need picc. f/u as wbc of 13 likely a false yanick and 18k-20k may be his stready state for awile but f/ u prior to picc placement and hopefully no further OR needs. Hematology: stable. peripheral thrombophlebitis and no need for change in abx and on subq heparin Endocrine: bit of D5 today and f/u needs Musculoskeletal: oob as able. pt. orhto f/u appreciated. Psych/Social: will look to update family Supportive and preventative care as ordered. SUP: pepcid VTE prophylaxis: heparin Bermudez catheter given critical illness, monitoring needs for accurate assessment of MARE and KDIGO criteria for critically ill patients and to avoid potential harms of urinary retention, skin breakdown/ulcers. Disposition: ICU Code Status: Full Critical Care Time: 35min Placido Dyson DO
--- NOTE | 2017-04-26 11:30 | PN ---
Progress Note - Progress Note Date of Service: 04/26/17 SOAP: Subjective: []No events ON. In ICU. On Haldol, fentanyl. AREN Drains in and functioning . On Abx IV. Objective: []VSS Wound s,c,d. AREN drains serosanguineous , total volume noted in chart. Two AREN drains removed. Catheters appeared to be intact. Patient tolerated procedure well. Eyes open, Ox1-2. RADHA, Face symetric, tongue midline. Follows commands. 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 Lt knee sp surgery. Sensory grossly intact to light touch, exam limited, grimaces to pain to all extremities. Assessment: []76 yom POD#4 multilevel laminectomies for holospinal epidural abscess Plan: []Monitor VS, Neurochecks. Monitor wound, AREN drains output. Monitor labs. Wound change q 2 days. Keep sutures for 6-8 weeks. Nutrition consult. PT/OT when able to participate. Abx per ID TEDS and SCDs. MRI of Rt shoulder ordered by Dr Donald yesterday. Appreciate ICU, IM, Orthopedic care. Armond Melendrez MD
--- NOTE | 2017-04-26 11:44 | PN ---
Progress Note - Progress Note Date of Service: 04/26/17 SOAP: Subjective: POD #2 S/P L knee I&D with poly exchange on 04/23/[address] Galan. Patient extubated, speaking nonsensically. Objective: Vital Signs Temp 99.0 F 04/26/17 10:01 Pulse 71 04/26/17 10:01 Resp 19 04/26/17 10:01 BP 159/66 04/26/17 10:00 Pulse Ox 98 04/26/17 10:01 Intake & Output 04/25/17 04/26/17 04/26/17 18:59 06:59 18:59 Intake Total 1036 1356 3 Output Total 750 1569 Balance 286 -213 3 Weight 229 lb 11.547 oz Intake: IV Fluids 791 1356 LR 684 786 NS (0.9%) 107 60 Oxacillin 510 IVPB 245 Oxacillin 245 IV Narcotic Infusion 3 Fentanyl 3 Output: AREN #1 10 22 AREN #2 20 26 AREN #3 40 65 Hackett 650 1450 Other 30 6 Other: Other Amount Description Other #4 AREN # 4 General: Somnolent but arousable, speaking nonsensically. LLE: Dressing C/D/I. Incision intact no erythema, drainage, warmth. Able to wiggle toes, not responding to request to move ankle. 2+ DP pulse. Groins with pain with movement of knee. Assessment: L TKA infected s/p I&D with poly exchange Plan: 1. Dressing changed today 2. No fevers overnight, increase in WBC in last few days 3. PT/OT when patient able to participate 4. Continue antibiotics per ID 5. Will continue to follow
--- NOTE | 2017-04-26 12:26 | PN ---
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 He cannot give ROS. No diarrhea or rash per RN. Objective: Vital Signs Temp 37.2 C 04/26/17 11:01 Pulse 70 04/26/17 11:01 Resp 16 04/26/17 11:55 BP 136/83 04/26/17 11:01 Pulse Ox 95 04/26/17 11:01 Intake & Output 04/25/17 04/26/17 04/26/17 18:59 06:59 18:59 Intake Total 1036 1356 3 Output Total 750 1569 Balance 286 -213 3 Weight 229 lb 11.547 oz Intake: IV Fluids 791 1356 LR 684 786 NS (0.9%) 107 60 Oxacillin 510 IVPB 245 Oxacillin 245 IV Narcotic Infusion 3 Fentanyl 3 Output: AREN #1 10 22 AREN #2 20 26 AREN #3 40 65 Hackett 650 1450 Other 30 6 Other: Other Amount Description Other #4 AREN # 4 Gen:no distress Neck: R IJ TLC Neuro: opens eyes to voice and pain, does not follow commands or answer questions HEENT:PERRL, MMD Heart:RRR no murmur Lungs:coarse anterior BS Abd:+ BS NTND soft Skin: no rash MSK: L knee wrapper; no right knee effusion Laboratory Results - last 24 hr 04/26/17 04/26/17 06:21 06:21 WBC 20.0 H RBC 2.58 L Hgb 8.1 L Hct 24 L MCV 94 MCH 31 MCHC 33 RDW 16 H Plt Count 247 MPV 8 Sodium 150 H Potassium 3.5 Chloride 122 H Carbon Dioxide 22 Anion Gap 6 BUN 46 H Creatinine 1.46 H Est GFR ( Amer) 60.7 Est GFR (Non-Af Amer) 47.2 BUN/Creatinine Ratio 31.5 H Glucose 111 H Calcium 7.2 L Phosphorus 4.2 Magnesium 2.8 H Assessment: 1. MSSA bacteremia, persists 2. encephalopathy, present on admission 3. MSSA epidural abscess 4. 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 presence bilateral hip arthroplasties; was minimally symptomatic at hips last week Plan: 1. continue oxacillin 2 gm IV Q4hrs, will adjust if GFR continues to decrease; recheck BC (ordered)
[2017-04-26] MEDS: fentaNYL* 50 MCG/ML 2 ML VIAL (100 MCG VIAL) IV SLOW PU PRN (14:45)
--- NOTE | 2017-04-26 15:15 | RAD ---
HISTORY: NG tube placement COMPARISONS: April 26, 2017 VIEWS: 1: frontal portable view of the chest at 2:50 PM FINDINGS: LINES AND TUBES: A gastric tube is noted with the tip in the left upper quadrant in a prepyloric position. A right internal jugular venous catheter is noted with the tip overlying the superior vena cava. Surgical drains are noted overlying the spine. CARDIOMEDIASTINAL SILHOUETTE: The cardiomediastinal silhouette is normal for portable technique. PLEURA: There is minimal blunting of the left costophrenic angle. LUNG PARENCHYMA: The lungs are clear. ABDOMEN: The upper abdomen is clear. There is no subphrenic gas. BONES AND SOFT TISSUES: No bone or soft tissue abnormalities are noted. IMPRESSION: 1. LINES AND TUBES ABOVE. 2. SMALL LEFT PLEURAL EFFUSION.
[2017-04-26] MEDS ORDERED: fentaNYL* 50 MCG/ML 2 ML VIAL (100 MCG VIAL) IV SLOW PU ONE (15:26)
[2017-04-26] MEDS ORDERED: fentaNYL* 50 MCG/ML 2 ML VIAL (100 MCG VIAL) ONE ×2 (15:28→18:55)
--- NOTE | 2017-04-26 16:15 | RAD ---
Indication: Painful RIGHT shoulder. History of sepsis and epidural abscess. Comparison: April 23, 2017 ultrasound. Technique: [place] [employer] 1.5 Birgit [id number] with GEM suite. Noncontrast MRI RIGHT shoulder. Report: Normal acromioclavicular and glenohumeral joint alignment. Mild hypertrophic arthropathy at the acromioclavicular joint. Moderately large volume of fluid at the subacromial subdeltoid bursa and glenohumeral joint communicating across a full-thickness supraspinatus tendon tear. High-grade partial and full-thickness degeneration of the glenohumeral joint hyaline articular cartilage. Associated diffuse labral degeneration and nondisplaced tear at the anterior and posterior labral segments. Torn and retracted long head biceps tendon. Partial width full-thickness rotator cuff tendon tear at the junction of the posterior margin of the supraspinatus and anterior margin of the infraspinatus measuring up to 0.7 cm AP with up to 1.7 cm retraction. Increased signal at the supraspinatus and infraspinatus tendons consistent with tendinopathy. Unremarkable teres minor tendon. Increased signal at the cephalad aspect of the subscapularis tendon consistent with tendinopathy. Interstitial edema at the supraspinatus and infraspinatus muscles as well as the cephalad aspect of the subscapularis. Diffuse subcutaneous edema. Patchy bone marrow edema at the greater tuberosity, lesser tuberosity, and humeral neck. No fracture evident. IMPRESSION: 1. The constellation of findings is highly suspicious for superficial and deep soft tissue infection with septic arthritis and osteomyelitis given the clinical context. 2. Partial width full-thickness rotator cuff tendon tear at the junction of the posterior margin of the supraspinatus and anterior margin of the infraspinatus measuring up to 0.7 cm AP with up to 1.7 cm retraction. 3. Moderately large volume of fluid at the subacromial subdeltoid bursa and glenohumeral joint communicating across a full-thickness supraspinatus tendon tear.
[2017-04-26] MEDS ORDERED: EPINEPHRINE 1 MG/ML 1 ML VIAL ONE (18:53)
[2017-04-26] MEDS ORDERED: Midazolam* 1 MG/ML 2 ML VIAL (2 MG) ONE ×2 (18:55→21:41)
[2017-04-26] MEDS ORDERED: Bacitracin IV* 50,000 UNITS INJ ONE ×2 (18:58→19:04)
[2017-04-26] MEDS ORDERED: Rocuronium* 10 MG/ML VIAL ONE (19:00)
[2017-04-26] MEDS ORDERED: Sugammadex * 200 MG/2 ML VIAL IV PUSH ONE (19:00)
[2017-04-26] MEDS: fentaNYL Patch Check Q Shift 1 NOTE SCH (19:12)
[2017-04-26] MEDS ORDERED: ceFAZolin 1 GM in Dextrose (*) 1 GM/50 ML BAG IVPB ONE (20:47)
[2017-04-26] MEDS ORDERED: Propofol* 10 MG/ML 20 ML BTL IV PUSH ONE (21:50)
[2017-04-26] MEDS ORDERED: EPHEDrine (Pressors)* 50 MG/ML VIAL ONE (21:50)
[2017-04-26] MEDS: Propofol* 100 ML ONE (21:54)
[2017-04-26] MEDS ORDERED: Propofol* 500 MG/50 ML BTL IV SCH (22:00)
[2017-04-27] MEDS: Oxacillin(*) 2 GM in NS 0.9% 100 ML* 100 ML IVPB SCH ×6 (02:02→20:47)
[2017-04-27] MEDS ORDERED: Propofol* 100 ML ONE (02:25)
[2017-04-27] MEDS: Propofol* 100 ML ONE (02:26)
[2017-04-27] MEDS: Heparin VIAL(*) 5000 UNITS/ML VIAL (FIVE THOUSAND) SUBCUT SCH ×3 (05:07→20:48)
[2017-04-27 06:20] LABS: Hematocrit 21 % (42-52); Hemoglobin 6.8 g/dl (14.0-18.0); Mean Corpuscular HGB Conc 33 g/dl (31-36); Mean Corpuscular Hemoglobin 31 pg (27-31); Mean Corpuscular Volume 95 fL (80-94); Mean Platelet Volume 8 um3 (7.4-10.4); Platelet Count 205 10^3/ul (150-450); Red Cell Distribution Width 16 % (10.5-15); White Blood Count 14.9 10^3/ul (3.5-10.8)
[2017-04-27 06:35] LABS: EGFR Non-African American 53.5 (>60)
[2017-04-27] MEDS: fentaNYL Patch Check Q Shift 1 NOTE SCH ×2 (07:38→19:50)
[2017-04-27] MEDS: Propofol* 100 ML IV SCH (08:06)
[2017-04-27] MEDS: Famotidine IV* 10 MG/ML 2 ML (20 mg) IV SCH (08:06)
[2017-04-27] MEDS: Allopurinol TAB* 100 MG PO SCH (09:03)
[2017-04-27] MEDS: Folic Acid TAB* 1 MG PO SCH (09:04)
[2017-04-27] MEDS: CMCS: Nebivolol TAB (NF) 2.5 MG TAB PO SCH (09:05)
[2017-04-27] MEDS: Thiamine TAB* 100 MG TAB PO SCH (09:05)
[2017-04-27] MEDS: Multivitamins ADULT w/MIN LIQ* 15 ML UDC PO SCH (09:05)
[2017-04-27] MEDS: Potassium Chloride LIQUID* 20 MEQ PACKET PO SCH ×2 (09:05→20:47)
[2017-04-27] MEDS ORDERED: fentaNYL* 50 MCG/ML 2 ML VIAL (100 MCG VIAL) IV SLOW PU ONE (14:29)
--- NOTE | 2017-04-27 14:37 | PN ---
Progress Note - Progress Note Date of Service: 04/27/17 Note: CRITICAL CARE MEDICINE Date: 04/27/17 Time: 920 SUBJECTIVE: Patient seen and examined. daughter at bedside. PHYSICAL EXAM: Vital Signs: Reviewed. Neurologic: awakens but very globally weak. and leaves eyes closed. HEENT: pupils equal and reactive. Sclera anicteric. Trachea midline. ett Cardiovascular: distant, S1 S2 Respiratory: distant, relatively clear Abdomen: Soft, nt. No r/g/r. Extremities: Warm. depend edema. R shoulder wrapped Access: R IJ LABS: Reviewed. IMAGING: Reviewed. MEDICATIONS: Reviewed. ASSESSMENT: 76 M MSSA epidural abscess Left knee mssa septic joint Right shoulder septic joint Post op resp failure, related to fatigue/wob/gmc not OR specific Acute delirium MARE Malnutrition mod degree Deconditioning PLAN: Neurologic: off propofol this am. even off fent td currently. see where his agitation and ability to thrive are prior to any liberation. nsgy f/u. Cardiovascular: perfusing. dep edema. still with Na overload. free water replacement and eventual salt mobilization. Respiratory: allowing vent for early part of day. would like to see his thrivability and to get through testing today prior to liberation as he is fine on cpap but is restful as well and needing to promote healing curve. Gastrointestinal: utilize tf via ngt and likely to need this for awhile. free water Renal/Metabolic: f/u free water needs. NA. bermudez Infectious Disease: oxacillin. for left shoulder mri. exam limited and may have further joint/bone needs and are trying to see best way to scan with tagged wbc or just bone scan screen. May just need CT, but would avoid contrast and therefore wait on these today. mri first. Hematology: stable. subq heparin Endocrine: bit of D5W today. Musculoskeletal: bedrest. pt. ortho following Psych/Social: updated family; long road ahead Supportive and preventative care as ordered. SUP: pepcid VTE prophylaxis: heparin Bermudez catheter given critical illness, monitoring needs for accurate assessment of MARE and KDIGO criteria for critically ill patients and to avoid potential harms of urinary retention, skin breakdown/ulcers. Disposition: ICU Code Status: Full Critical Care Time: 35min Placido Dyson DO
[2017-04-27] MEDS: fentaNYL* 50 MCG/ML 2 ML VIAL (100 MCG VIAL) IV SLOW PU PRN ×2 (14:45→19:42)
--- NOTE | 2017-04-27 15:51 | PN ---
Progress Note - Progress Note Date of Service: 04/27/17 SOAP: Subjective: [] Patient seen at bedside, he is unable to participate in exam and unable to answer any questions. Objective: [] Vital Signs Temp 98.1 F 04/27/17 14:15 Pulse 65 04/27/17 14:15 Resp 26 04/27/17 14:45 BP 157/39 04/27/17 14:15 Pulse Ox 96 04/27/17 14:15 Intake & Output 04/26/17 04/27/17 04/27/17 18:59 06:59 18:59 Intake Total 994 1491 919 Output Total 725 445 495 Balance 269 1046 424 Weight 235 lb 10.786 oz 235 lb 10.786 oz Intake: IV Fluids 736 1361 715 D5W 1/2 NS 40 meq KCL 666 796 637 NS (0.9%) 70 515 78 NS 50ML, Cefazolin 1G 50 IVPB 255 144 Oxacillin 255 144 Medicated IV 130 60 CC - Propofol/Diprivan 130 60 IV Narcotic Infusion 3 Fentanyl 3 Output: AREN #1 20 25 AREN #2 20 20 5 AREN #3 30 5 15 Hackett 675 400 450 Laboratory Last Values WBC 14.9 10^3/ul (3.5-10.8) H 04/27/17 06:10 RBC 2.20 10^6/ul (4.0-5.4) L 04/27/17 06:10 Hgb 6.8 g/dl (14.0-18.0) L 04/27/17 06:10 Hct 21 % (42-52) L 04/27/17 06:10 MCV 95 fL (80-94) H 04/27/17 06:10 MCH 31 pg (27-31) 04/27/17 06:10 MCHC 33 g/dl (31-36) 04/27/17 06:10 RDW 16 % (10.5-15) H 04/27/17 06:10 Plt Count 205 10^3/ul (150-450) 04/27/17 06:10 MPV 8 um3 (7.4-10.4) 04/27/17 06:10 Neut % (Auto) 92.6 % (38-83) H 04/23/17 06:01 Lymph % (Auto) 2.0 % (25-47) L 04/23/17 06:01 [facility] [facility] % (Auto) 5.3 % (0-7) 04/23/17 06:01 Eos % (Auto) 0 % (0-6) 04/23/17 06:01 Baso % (Auto) 0.1 % (0-2) 04/23/17 06:01 Absolute Neuts (auto) 16.0 10^3/ul (1.5-7.7) H 04/23/17 06:01 Absolute Lymphs (auto) 0.3 10^3/ul (1.0-4.8) L 04/23/17 06:01 Absolute Monos (auto) 0.9 10^3/ul (0-0.8) H 04/23/17 06:01 Absolute Eos (auto) 0 10^3/ul (0-0.6) 04/23/17 06:01 Absolute Basos (auto) 0 10^3/ul (0-0.2) 04/23/17 06:01 Absolute Nucleated RBC 0 10^3/ul 04/23/17 06:01 Nucleated RBC % 0.1 04/23/17 06:01 INR (Anticoag Therapy) 1.18 (0.77-1.02) H 04/23/17 00:48 APTT 35.6 seconds (26.0-36.3) 04/23/17 00:48 Patient Temperature Not Reportable 04/23/17 00:48 ABG pH 7.44 (7.35-7.45) 04/23/17 00:48 ABG pH (Temp Correct) Not Reportable 04/23/17 00:48 ABG pCO2 31 mmHg (35-45) L 04/23/17 00:48 ABG pCO2 (Temp Corrct Not Reportable 04/23/17 00:48 ABG pO2 128 mmHg (80-100) H 04/23/17 00:48 ABG pO2 (Temp Correct Not Reportable 04/23/17 00:48 ABG HCO3 23.0 mmol/L (19-31) 04/23/17 00:48 ABG O2 Saturation 99.2 % (95-98) H 04/23/17 00:48 ABG Base Excess -2.5 (-2.0-2.0) L 04/23/17 00:48 Respiration Rate 14 04/23/17 00:48 O2 Delivery Device ventilator 04/23/17 00:48 Ventilator Type 600 04/23/17 00:48 Vent Mode apv 04/23/17 00:48 FiO2 50 03 00:48 Inspiratory Time 1.0 04/23/17 00:48 PEEP 5 03 00:48 Pressure Support Not Reportable 04/23/17 00:48 Pressure Control Not Reportable 04/23/17 00:48 EPAP Not Reportable 04/23/17 00:48 IPAP Not Reportable 04/23/17 00:48 BiPAP Not Reportable 04/23/17 00:48 Sodium 153 mmol/L (133-145) H 04/27/17 06:10 Potassium 3.9 mmol/L (3.5-5.0) 04/27/17 06:10 Chloride 126 mmol/L (101-111) H 04/27/17 06:10 Carbon Dioxide 22 mmol/L (22-32) 04/27/17 06:10 Anion Gap 5 mmol/L (2-11) 04/27/17 06:10 BUN 40 mg/dL (6-24) H 04/27/17 06:10 Creatinine 1.31 mg/dL (0.67-1.17) H 04/27/17 06:10 Est GFR ( Amer) 68.8 (>60) 04/27/17 06:10 Est GFR (Non-Af Amer) 53.5 (>60) 04/27/17 06:10 BUN/Creatinine Ratio 30.5 (8-20) H 04/27/17 06:10 Glucose 162 mg/dL (70-100) H 04/27/17 06:10 Lactic Acid 1.1 mmol/L (0.5-2.0) 04/21/17 08:43 Calcium 7.0 mg/dL (8.6-10.3) L 04/27/17 06:10 Phosphorus 4.2 mg/dL (2.5-5.0) 04/26/17 06:21 Magnesium 2.8 mg/dL (1.9-2.7) H 04/26/17 06:21 Total Bilirubin 2.00 mg/dL (0.2-1.0) H 04/23/17 00:48 AST 49 U/L (13-39) H 04/23/17 00:48 ALT 73 U/L (7-52) H 04/23/17 00:48 Alkaline Phosphatase 69 U/L (34-104) 04/23/17 00:48 Troponin I 0.03 ng/mL (<0.04) 04/21/17 04:40 C-Reactive Protein 166.13 mg/L (< 5.00) H 04/21/17 04:40 Total Protein 4.0 g/dL (6.4-8.9) L 04/23/17 00:48 Albumin 1.8 g/dL (3.2-5.2) L 04/23/17 00:48 Globulin 2.2 g/dL (2-4) 04/23/17 00:48 Albumin/Globulin Ratio 0.8 (1-3) L 04/23/17 00:48 Lipase 28 U/L (11.0-82.0) 04/21/17 04:40 Fluid Source Synovial 04/23/17 10:30 Fluid Volume 3 mL 04/23/17 10:30 Fluid Color Yellow 04/23/17 10:30 Fluid Appearance Cloudy 04/23/17 10:30 Fluid WBC 51728 /mcL (0-592847) 04/23/17 10:30 Fluid RBC 10491 /mcL 04/23/17 10:30 Fluid Tot Cell Count 100 04/23/17 10:30 Fluid Neutrophils 94 % 04/23/17 10:30 Fluid Lymphocytes 6 % 04/23/17 10:30 Fluid Other Cells 1 04/23/17 10:30 Fluid Cell Count Rvw By 04/23/17 10:30 Fluid Crystals None seen (None Seen) 04/23/17 10:30 Fluid Total Protein 3.1 g/dL 04/23/17 10:30 Blood Type O Positive 04/22/17 04:11 Antibody Screen Negative 04/22/17 04:11 Crossmatch See Detail 04/22/17 04:11 General: unresponsive, intubated LLE: Dressing changed. Incision clean, dry, intact with no erythema, drainage or warmth. Knee without erythema, warmth or effusion. Calf is supple, nonerythematous, no palpable cords. DP pulse 1+. Capillary refill less than three seconds RUE: shoulder dressing in place, drain in place with significant output. No surrounding erythema. Radial pulse 1+. Hand warm with capillary refill less than 3 seconds Assessment: L TKA infected s/p I&D with poly exchange Right shoulder s/p I&D Plan: Knee dressing changed today. Will change every other day and PRN thereafter Shoulder dressing left in place, drain left in place as still producing output. Will pull tomorrow if stops draining and change dressing tomorrow MRI left shoulder and bone scan today PT/OT when patient able to participate Continue antibiotics per ID Will continue to follow
[2017-04-27] MEDS ORDERED: D5W KCl 40 MEQ 1000 ML* 1,000 ML IV SCH (16:00)
[2017-04-27] MEDS ORDERED: D5W NS 0.9% 20Meq KCL 1000 ML* 1,000 ML IV SCH (16:00)
[2017-04-27] MEDS: Potassium Chloride IV* 40 MEQ in D5W 1000 ML BAG* 1,000 ML IVPB SCH (18:43)
--- NOTE | 2017-04-27 19:50 | PN ---
Progress Note - Progress Note Date of Service: 04/27/17 SOAP: Subjective: []No events ON. In ICU. Intubated. AREN Drains in and functioning . On Abx IV. On TF. Yesterday underwent I&D Rt shoulder. Objective: []VSS Wound s,c,d. AREN drains serosanguineous , total volume noted in chart. Two last AREN drains removed. Catheters appeared to be intact. Patient tolerated procedure well. Eyes open to pain, (I), RADHA, Face symetric, tongue Follows commands. 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 Lt knee, Rt Shoulder sp surgery. Sensory grimaces to pain to all extremities Assessment: []76 yom POD#5 multilevel laminectomies for holospinal epidural abscess Plan: []Monitor VS, Neurochecks. Monitor wound. Monitor labs. Wound change q 2 days. Keep sutures for 6-8 weeks. Nutrition consult. PT/OT when able to participate. Abx per ID TEDS and SCDs. Appreciate ICU, IM, Orthopedic care. Armond Melendrez MD
--- NOTE | 2017-04-27 20:36 | OP ---
DATE OF OPERATION: 04/26/17 - ROOM #ICU-01 DATE OF : 44 SURGEON: Doc Galan MD HVAC RESIDENTIAL SERVICE TECHNICIAN: None. ANESTHESIOLOGIST: Dr. Latisha Edwards. ANESTHESIA: General endotracheal anesthesia. PRE-OP DIAGNOSIS: Infected right shoulder, glenohumeral joint, paimiut. POST-OP DIAGNOSES: 1. Infected right shoulder, glenohumeral joint, paimiut. 2. Right shoulder proximal biceps long head tear. 3. Right shoulder partial thickness undersurface supraspinatus, infraspinatus rotator cuff tear. 4. Right shoulder subscapularis rotator cuff tear. 5. Articular cartilage loss right glenohumeral joint. OPERATIVE PROCEDURES: 1. Right shoulder arthroscopic incision, irrigation, and debridement, glenohumeral joint, subacromial space. 2. Right shoulder debridement, stump of long head biceps tendon. 3. Right shoulder placement of drain, AREN. ANTIBIOTICS: Ancef 1 g IV after specimens were taken. IV FLUIDS: See anesthesia note. COMPLICATIONS: None. SPECIMEN: Aerobic and anaerobic culture swabs x2. IRRIGANT: 16 L of fluid total irrigated through the right shoulder. A 12 L of that fluid contained bacitracin at the concentration of 50,000 units per 3 L. IMPLANTS: None. DRAINS: AREN drain x1, 10 mm in diameter of tubing. ESTIMATED BLOOD LOSS: Minimal. COMPLICATIONS: None. INDICATIONS FOR PROCEDURE: The patient is a 76-year-old man, 3 days from an irrigation and debridement, open and exchange of liner left total knee arthroplasty, and 4 days from an irrigation and debridement with bony decompressions for an epidural abscess from the cervical to the thoracic spine, performed by Dr. Allison Melendrez. The source of the patient's infection is still not clear. The patient had presented to the emergency department with greatly increased lower back pain and eventually was diagnosed with the epidural abscess via MRI scan with contrast. The patient was noted to have right shoulder discomfort on 04/22/17. Glenohumeral joint, right was aspirated and was dry, by Dr. Soliman. The patient has been poorly communicative secondary to being intubated for multiple days after his complex spine surgery. Despite being extubated today, he has been only minimally responsive to questions. Some ultrasounds done over the weekend failed to show clear fluid collections in the joints of the right shoulder or either the left or right hip; however, the examining radiologist acknowledged some limitations in the quality of these studies, specially those of the hips. A single slice from the thoracic spine MRI last week had indicated some question of fluid collection adjacent to subscapularis. Given the patient's continued discomfort with passive range of motion of the right shoulder and the thoracic spine MRI findings, the medical team over the weekend suggested an MRI of the right shoulder. That was performed today, demonstrated a clear large fluid collection in the right shoulder glenohumeral joint, as well as in the subacromial space, with some surrounding tissue edema, consistent with a right shoulder glenohumeral joint infection with subacromial infection. The patient's white blood cell count had elevated from 13.3 on 04/24/17 to 20.0 on 04/26/17. Bedside common examination revealed pain with passive forward flexion as little as 15 rotation as well as 45 degrees. The diagnosis preoperatively was only likely right shoulder joint infection. Informed consent was obtained from the patient's who is also his healthcare proxy. Risks and potential complications of surgery including bleeding, infection, nerve or blood vessel injury, shoulder pain, stiffness, osteoarthritis, need to do a revision, irrigation and debridement were discussed with the patient's and his family. DESCRIPTION OF PROCEDURE: The patient's signed a written consent. Operative extremity was marked in the ICU. The patient was taken directly to the operating room. The patient was sedated and intubated. The patient was moved into a lateral decubitus position with the right shoulder up. Axillary roll. Bony prominences padded. Beanbag was hardened. Appropriate traction right shoulder. Prepped with a ChloraPrep. Draping. Surgical time-out. Landmarks were marked on the skin. The glenohumeral joint was entered from posterior with a trocar and cannula. Immediately, pus exited through the cannula. I obtained aerobic and anaerobic cultures x1 with swabs. I entered my arthroscope into the glenohumeral joint. I irrigated and evacuated. I then established in the anterior glenohumeral joint portal under direct visualization. I entered an arthroscopic shaver that allowed me to shape up debris. Looking around the glenohumeral joint, the patient had grade 3 to 4 wear of the articular cartilage throughout the humeral head. On the side of glenoid, he had some full thickness cartilage, grade 4 lesions, but some areas with grade 2 articular cartilage wear. There was some fraying of the labrum. This was smoothed out with arthroscopic shaver. No clear rotator cuff tear, full thickness appreciated. With the exception of the subscapularis, the upper aspect of the subscapularis had full thickness tearing to it. Several liters of irrigant were passed through the glenohumeral joint. The long head of the biceps tendon was noted to have a long stump within the joint that was debrided back to its origin with an arthroscopic shaver. As it seemed like there was occasional debris still coming from the subacromial space, I next moved to the subacromial space entering from posterior and anterior. Anteriorly, I placed an Arthrex 5 mm plastic cannula. I established a lateral subacromial portal under direct visualization. I cleaned out the gutters with an arthroscopic shaver as well as the synovium overlying the rotator cuff and underlying acromion. I established a posterolateral portal for improved visualization. I used a switching stick to probe medially as well as inferiorly on all sites without the rotator cuff to look for any pocket of pus and I never encountered any. There was no clear full thickness tear and the supra or infraspinatus as had been suspected by Radiology on the patient's MRI. Multiple views were then placed through the subacromial space. I then returned to the glenohumeral joint. Some clot had formed there and that was debrided. I inspected again the undersurface of rotator cuff. I detected partial thickness tearing on the under surface of the supraspinatus and infraspinatus. I returned to the subacromial space. I used up the remaining of the the 15 L original in tendon and then used an additional 16th L while placing my drain. I placed a AREN drain, exiting anteriorly about the right shoulder. Closed skin incisions with multiple different types of stitches using nylon 4.0 suture. I sutured AREN drain to the skin with a drain stitch using Prolene suture. ABDs placed over dressings followed by a foam tape. DISPOSITION: The patient was brought back to the ICU and remained intubated postoperatively. The patient will have his white blood cell count as well as ESR and CRP followed regularly to detect or dipika the effectiveness or a fight about infected joints in this tricky patient. We will again examine the bilateral hips to look for infection. We would consider a bone scan to be the most thorough regarding infection anywhere in the body. The patient will keep the dressing on for 3 days postoperatively and I will follow up with him in the hospital. [id number]/[facility] #: [id number] MTDD
[2017-04-28] MEDS: Oxacillin(*) 2 GM in NS 0.9% 100 ML* 100 ML IVPB SCH ×6 (00:42→21:17)
[2017-04-28] MEDS: Propofol* 100 ML IV SCH ×2 (02:02→07:53)
[2017-04-28] MEDS: Heparin VIAL(*) 5000 UNITS/ML VIAL (FIVE THOUSAND) SUBCUT SCH ×3 (06:39→22:16)
[2017-04-28] MEDS: Potassium Chloride IV* 40 MEQ in D5W 1000 ML BAG* 1,000 ML IVPB SCH ×2 (06:40→20:27)
[2017-04-28] MEDS: fentaNYL Patch Check Q Shift 1 NOTE SCH (07:30)
--- NOTE | 2017-04-28 08:31 | RAD ---
Indication: Left shoulder pain. Imaging Sequences: Coronal proton density, T2, fat-sat T2 weighted images of the shoulder were obtained. Sagittal T1, T2 fat sat images of the shoulder were obtained. Axial proton density fat sat images were also obtained. Motion artifact degrades the images. Moderate AC joint arthritis is noted. There is likely tendinosis of the distal supraspinatus tendon. Moderate degree of AC joint arthritis is noted. Infraspinatus and subscapularis muscle and tendon appears to be intact. The biceps tendon is intact. There is undermining of fluid under the superior labrum and a superior labral tear cannot be excluded. IMPRESSION: Tendinosis of the distal supraspinatus tendon with mild to moderate AC joint arthritis. There is suggestion of a superior labral tear such as a SLAP type II tear. Motion artifact degrades the images.
[2017-04-28] MEDS: Famotidine IV* 10 MG/ML 2 ML (20 mg) IV SCH (08:54)
[2017-04-28] MEDS: Allopurinol TAB* 100 MG PO SCH (09:22)
[2017-04-28] MEDS: Potassium Chloride LIQUID* 20 MEQ PACKET PO SCH ×2 (09:23→19:54)
[2017-04-28] MEDS: Folic Acid TAB* 1 MG PO SCH (09:23)
[2017-04-28] MEDS: CMCS: Nebivolol TAB (NF) 2.5 MG TAB PO SCH (09:23)
[2017-04-28] MEDS: Multivitamins ADULT w/MIN LIQ* 15 ML UDC PO SCH (09:23)
[2017-04-28] MEDS: Thiamine TAB* 100 MG TAB PO SCH (09:23)
[2017-04-28 09:35] LABS: Hematocrit 20 % (42-52); Mean Corpuscular HGB Conc 34 g/dl (31-36); Mean Corpuscular Hemoglobin 33 pg (27-31); Mean Corpuscular Volume 96 fL (80-94); Mean Platelet Volume 8 um3 (7.4-10.4); Platelet Count 211 10^3/ul (150-450); Red Blood Count 2.13 10^6/ul (4.0-5.4); Red Cell Distribution Width 16 % (10.5-15)
[2017-04-28] MEDS ORDERED: Chlorothiazide IV* 250 MG in NS 0.9% 50 ML* 50 ML IVPB ONE (10:30)
[2017-04-28 10:40] LABS: EGFR Non-African American 51.7 (>60)
[2017-04-28] MEDS ORDERED: Furosemide IV* 10 MG/ML VIAL (40 MG) IV SLOW PU ONE (11:00)
[2017-04-28 11:04] LABS: ABS Basophils 0 10^3/ul (0-0.2); ABS Eosinophils 0.2 10^3/ul (0-0.6); ABS Lymphocytes 0.8 10^3/ul (1.0-4.8); ABS Monocytes 0.6 10^3/ul (0-0.8); ABS Neutrophils 10.4 10^3/ul (1.5-7.7); ABS Nucleated RBC 0 10^3/ul; Eosinophil % 1.6 % (0-6); Lymphocyte % 6.3 % (25-47); Nucleated Red Blood Cells % 0
--- NOTE | 2017-04-28 11:14 | PN ---
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 He cannot give ROS. No diarrhea or rash per RN. Objective: Vital Signs Temp 37.2 C 04/28/17 10:00 Pulse 61 04/28/17 10:00 Resp 16 04/28/17 10:00 BP 151/51 04/28/17 10:00 Pulse Ox 96 04/28/17 10:00 Intake & Output 04/27/17 04/28/17 04/28/17 18:59 06:59 18:59 Intake Total 919 2010 52 Output Total 495 1060 Balance 424 950 52 Weight 235 lb 10.786 oz 238 lb 1.588 oz Intake: IV Fluids 715 1220 D5W 1/2 NS 40 meq KCL 637 D5w 40 meq KCl 1002 NS (0.9%) 78 52 Oxacillin 166 IVPB 144 311 Oxacillin 144 311 Medicated IV 60 111 CC - Propofol/Diprivan 60 111 Tube Feeding 88 52 NG Tube Irrigate Amount 280 NGT 250 Output: AREN #1 25 10 AREN #2 5 AREN #3 15 Hackett 450 1050 Gen:sedated, no distress Neck: R IJ TLC Neuro: withdraws feet to pain HEENT:PERRL, MMD, intubated Heart:RRR no murmur Lungs:coarse anterior BS Abd:+ BS NTND soft Skin: no rash MSK: L knee wrapped; no right knee effusion; R shoulder dressed Assessment: 1. MSSA bacteremia, may be clearing. due to below infections. TTE 04/22 no vegetation or regurgitant valve lesion, no peripheral stigmta of IE, will be on long course IV antibiotics so does need MIRLANDE at this point 2. encephalopathy, present on admission 3. MSSA epidural abscess s/p I&D 4. 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 MSSA septic left shoulder 5. presence bilateral hip arthroplasties; were minimally symptomatic on initial exam Plan: 1. continue oxacillin 2 gm IV Q4hrs, GFR stable, same dose; long course Discussed with Dr Dyson
--- NOTE | 2017-04-28 11:26 | PN ---
Progress Note - Progress Note Date of Service: 04/28/17 SOAP: Subjective: []Patient seen at bedside. He remains intubated and unresponsive. Objective: [] Vital Signs Temp 99.0 F 04/28/17 10:00 Pulse 61 04/28/17 10:00 Resp 16 04/28/17 10:00 BP 151/51 04/28/17 10:00 Pulse Ox 96 04/28/17 10:00 Intake & Output 04/27/17 04/28/17 04/28/17 18:59 06:59 18:59 Intake Total 919 2010 52 Output Total 495 1060 Balance 424 950 52 Weight 235 lb 10.786 oz 238 lb 1.588 oz Intake: IV Fluids 715 1220 D5W 1/2 NS 40 meq KCL 637 D5w 40 meq KCl 1002 NS (0.9%) 78 52 Oxacillin 166 IVPB 144 311 Oxacillin 144 311 Medicated IV 60 111 CC - Propofol/Diprivan 60 111 Tube Feeding 88 52 NG Tube Irrigate Amount 280 NGT 250 Output: AREN #1 25 10 AREN #2 5 AREN #3 15 Hackett 450 1050 Laboratory Last Values WBC 12.0 10^3/ul (3.5-10.8) H 04/28/17 09:15 RBC 2.13 10^6/ul (4.0-5.4) L 04/28/17 09:15 Hgb 7.0 g/dl (14.0-18.0) L 04/28/17 09:15 Hct 20 % (42-52) L 04/28/17 09:15 MCV 96 fL (80-94) H 04/28/17 09:15 MCH 33 pg (27-31) H 04/28/17 09:15 MCHC 34 g/dl (31-36) 04/28/17 09:15 RDW 16 % (10.5-15) H 04/28/17 09:15 Plt Count 211 10^3/ul (150-450) 04/28/17 09:15 MPV 8 um3 (7.4-10.4) 04/28/17 09:15 Neut % (Auto) 87.0 % (38-83) H 04/28/17 09:15 Lymph % (Auto) 6.3 % (25-47) L 04/28/17 09:15 Wilkin % (Auto) 5.0 % (0-7) 04/28/17 09:15 Eos % (Auto) 1.6 % (0-6) 04/28/17 09:15 Baso % (Auto) 0.1 % (0-2) 04/28/17 09:15 Absolute Neuts (auto) 10.4 10^3/ul (1.5-7.7) H 04/28/17 09:15 Absolute Lymphs (auto) 0.8 10^3/ul (1.0-4.8) L 04/28/17 09:15 Absolute Monos (auto) 0.6 10^3/ul (0-0.8) 04/28/17 09:15 Absolute Eos (auto) 0.2 10^3/ul (0-0.6) 04/28/17 09:15 Absolute Basos (auto) 0 10^3/ul (0-0.2) 04/28/17 09:15 Absolute Nucleated RBC 0 10^3/ul 04/28/17 09:15 Nucleated RBC % 0 04/28/17 09:15 INR (Anticoag Therapy) 1.18 (0.77-1.02) H 04/23/17 00:48 APTT 35.6 seconds (26.0-36.3) 04/23/17 00:48 Patient Temperature Not Reportable 04/23/17 00:48 ABG pH 7.44 (7.35-7.45) 04/23/17 00:48 ABG pH (Temp Correct) Not Reportable 04/23/17 00:48 ABG pCO2 31 mmHg (35-45) L 04/23/17 00:48 ABG pCO2 (Temp Corrct Not Reportable 04/23/17 00:48 ABG pO2 128 mmHg (80-100) H 04/23/17 00:48 ABG pO2 (Temp Correct Not Reportable 04/23/17 00:48 ABG HCO3 23.0 mmol/L (19-31) 04/23/17 00:48 ABG O2 Saturation 99.2 % (95-98) H 04/23/17 00:48 ABG Base Excess -2.5 (-2.0-2.0) L 03/02/18 00:48 Respiration Rate 14 04/23/17 00:48 O2 Delivery Device ventilator 04/23/17 00:48 Ventilator Type 600 04/23/17 00:48 Vent Mode apv 04/23/17 00:48 FiO2 50 04/23/17 00:48 Inspiratory Time 1.0 03 00:48 PEEP 5 04/23/17 00:48 Pressure Support Not Reportable 04/23/17 00:48 Pressure Control Not Reportable 04/23/17 00:48 EPAP Not Reportable 04/23/17 00:48 IPAP Not Reportable 04/23/17 00:48 BiPAP Not Reportable 04/23/17 00:48 Sodium 153 mmol/L (133-145) H 04/28/17 09:15 Potassium 3.9 mmol/L (3.5-5.0) 04/28/17 09:15 Chloride 127 mmol/L (101-111) H 04/28/17 09:15 Carbon Dioxide 22 mmol/L (22-32) 04/28/17 09:15 Anion Gap 4 mmol/L (2-11) 04/28/17 09:15 BUN 32 mg/dL (6-24) H 04/28/17 09:15 Creatinine 1.35 mg/dL (0.67-1.17) H 04/28/17 09:15 Est GFR ( Amer) 66.4 (>60) 04/28/17 09:15 Est GFR (Non-Af Amer) 51.7 (>60) 04/28/17 09:15 BUN/Creatinine Ratio 23.7 (8-20) H 04/28/17 09:15 Glucose 138 mg/dL (70-100) H 04/28/17 09:15 Lactic Acid 1.1 mmol/L (0.5-2.0) 04/21/17 08:43 Calcium 7.0 mg/dL (8.6-10.3) L 04/28/17 09:15 Phosphorus 4.2 mg/dL (2.5-5.0) 04/26/17 06:21 Magnesium 2.8 mg/dL (1.9-2.7) H 04/26/17 06:21 Total Bilirubin 2.00 mg/dL (0.2-1.0) H 04/23/17 00:48 AST 49 U/L (13-39) H 04/23/17 00:48 ALT 73 U/L (7-52) H 04/23/17 00:48 Alkaline Phosphatase 69 U/L (34-104) 04/23/17 00:48 Troponin I 0.03 ng/mL (<0.04) 04/21/17 04:40 C-Reactive Protein 166.13 mg/L (< 5.00) H 04/21/17 04:40 Total Protein 4.0 g/dL (6.4-8.9) L 04/23/17 00:48 Albumin 1.8 g/dL (3.2-5.2) L 04/23/17 00:48 Globulin 2.2 g/dL (2-4) 04/23/17 00:48 Albumin/Globulin Ratio 0.8 (1-3) L 04/23/17 00:48 Lipase 28 U/L (11.0-82.0) 04/21/17 04:40 Fluid Source Synovial 04/23/17 10:30 Fluid Volume 3 mL 04/23/17 10:30 Fluid Color Yellow 04/23/17 10:30 Fluid Appearance Cloudy 04/23/17 10:30 Fluid WBC 66710 /mcL (0-928495) 04/23/17 10:30 Fluid RBC 30141 /mcL 04/23/17 10:30 Fluid Tot Cell Count 100 04/23/17 10:30 Fluid Neutrophils 94 % 04/23/17 10:30 Fluid Lymphocytes 6 % 04/23/17 10:30 Fluid Other Cells 1 04/23/17 10:30 Fluid Cell Count Rvw By 04/23/17 10:30 Fluid Crystals None seen (None Seen) 04/23/17 10:30 Fluid Total Protein 3.1 g/dL 04/23/17 10:30 Blood Type O Positive 04/22/17 04:11 Antibody Screen Negative 04/22/17 04:11 Crossmatch See Detail 04/22/17 04:11 General: unresponsive, intubated LLE: Dressing clean, dry, intact with no surrounding erythema and no drainage. Calf is supple, nonerythematous, no palpable cords. DP pulse present by dopplar. RUE: shoulder dressing changed, incisions CDI. AREN drain pulled, roughly 10 ml output. No surrounding erythema. Radial pulse 1+. 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 is bedside. Objective: Intubated in ICU bed RUE: dressing in place, some facial grimace with PROM shoulder, radial artery + LLE: dressing in place, some facial grimace with PROM knee, but easily able to obtain 0-45 degrees, PT, DP + MRI L shoulder: I see a cyst deep to supraspinatus, likely paralabral, no clear sign of joint infection or osteomyelitis Assessment: POD 5 I&D open L knee, liner exchange POD 2 I&D arthroscopic R shoulder Plan: - Extubation schedule, Na management, possible transfusion per ICU staff - Continue Oxacillin - Hold off on bone scan as WBC is decreasing and per report hip exams were negative with the patient still responsive and alert - DSD change every other day L knee and R shoulder <Doc Galan - Last Filed: 04/28/17 13:16>
--- NOTE | 2017-04-28 12:04 | PN ---
Progress Note - Progress Note Date of Service: 04/28/17 Note: CRITICAL CARE MEDICINE Date: 04/28/17 Time: 1000 SUBJECTIVE: Patient seen and examined. d PHYSICAL EXAM: Vital Signs: Reviewed. Neurologic: awakens but very globally weak. waiting off propo completely for more response. eyes closed. HEENT: pupils equal and reactive. Sclera anicteric. Trachea midline. ett Cardiovascular: distant, S1 S2 Respiratory: distant, rhonchi bl r>l without much spont cough Abdomen: Soft, nt. No r/g/r. Extremities: Warm. depend edema. R shoulder wrapped Access: R IJ LABS: Reviewed. IMAGING: Reviewed. MEDICATIONS: Reviewed. ASSESSMENT: 76 M MSSA epidural abscess Left knee mssa septic joint Right shoulder septic joint Post op resp failure, related to fatigue/wob/gmc not OR specific Acute delirium MARE Malnutrition mod degree Deconditioning PLAN: Neurologic: off propofol and leave off. f/u pain needs. see where his ability to thrive are prior to any liberation today. nsgy f/u. Cardiovascular: perfusing. dep edema. still with Na overload and start lasix thiazide mobilization today. water replacement po as able Respiratory: cpap with minimal support. airway and ability to thrive remain the main issues of liberation. Gastrointestinal: tf via ngt and likely to need for awhile. free water flushes Renal/Metabolic: free water needs. NA mobilization as above. bermudez Infectious Disease: oxacillin continued. d/w ID. Hematology: stable. subq heparin Endocrine: f/u needs. Musculoskeletal: bedrest and deconditioiong ongoing unfortunately. pt. ortho following Psych/Social: will need to d/w family; long road ahead Supportive and preventative care as ordered. SUP: pepcid VTE prophylaxis: heparin Bermudez catheter given critical illness, monitoring needs for accurate assessment of MARE and KDIGO criteria for critically ill patients and to avoid potential harms of urinary retention, skin breakdown/ulcers. Disposition: ICU Code Status: Full Critical Care Time: 35min Placido Dyson DO
[2017-04-28] MEDS: fentaNYL* 50 MCG/ML 2 ML VIAL (100 MCG VIAL) IV SLOW PU PRN ×3 (17:57→22:16)
[2017-04-28] MEDS: Acetaminophen ADULT LIQ* 650 MG/20.3 ML UDC NG TUBE PRN (19:55)
--- NOTE | 2017-04-28 20:53 | PN ---
Progress Note - Progress Note Date of Service: 04/28/17 SOAP: Subjective: []No events ON. In ICU. Intubated. On Abx IV. On TF. Objective: []VSS Wound s,c,d. Eyes open to pain, (I), RADHA, Face symmetric, Follows commands. Nichole consistently, hand sfdc technical architect bilaterally, bilateral foot PF/DF toes F/E to command. Lt knee, Rt Shoulder sp surgery. Sensory grimaces to pain to all extremities Assessment: []76 yom POD#6 multilevel laminectomies for holospinal epidural abscess Plan: [] Monitor VS, Neurochecks. Monitor wound. Monitor labs. Wound change q 2 days. Keep sutures for 6-8 weeks. Nutrition consult. PT/OT when able to participate. Abx per ID TEDS and SCDs. Appreciate ICU, IM, Orthopedic care. Armond Melendrez MD
[2017-04-28] MEDS ORDERED: Midazolam* 1 MG/ML 2 ML VIAL (2 MG) ONE (22:22)
[2017-04-28] MEDS: Midazolam* 1 MG/ML 2 ML VIAL (2 MG) IV PRN (22:24)
--- NOTE | 2017-04-28 23:19 | PN ---
Progress Note - Progress Note Date of Service: 04/28/17 Note: Pt attempting to pull at ET tube. Will initiate L soft wrist restraint to prevent this from occurring.
[2017-04-28] MEDS: Chlorhexidine MOUTHWASH 0.12%* 15 ML UDC TOPICAL SCH (23:33)
[2017-04-29] MEDS: Oxacillin(*) 2 GM in NS 0.9% 100 ML* 100 ML IVPB SCH ×6 (00:11→20:49)
[2017-04-29] MEDS: fentaNYL* 50 MCG/ML 2 ML VIAL (100 MCG VIAL) IV SLOW PU PRN (00:12)
[2017-04-29] MEDS: Midazolam* 1 MG/ML 2 ML VIAL (2 MG) IV PRN (01:15)
[2017-04-29] MEDS: Chlorhexidine MOUTHWASH 0.12%* 15 ML UDC TOPICAL SCH ×5 (03:58→20:48)
[2017-04-29] MEDS: Heparin VIAL(*) 5000 UNITS/ML VIAL (FIVE THOUSAND) SUBCUT SCH ×3 (05:30→20:49)
[2017-04-29 05:47] LABS: ABS Basophils 0.1 10^3/ul (0-0.2); ABS Eosinophils 0.2 10^3/ul (0-0.6); ABS Lymphocytes 0.8 10^3/ul (1.0-4.8); ABS Monocytes 0.7 10^3/ul (0-0.8); ABS Neutrophils 14.2 10^3/ul (1.5-7.7); ABS Nucleated RBC 0 10^3/ul; Eosinophil % 1.2 % (0-6); Hematocrit 23 % (42-52); Hemoglobin 7.9 g/dl (14.0-18.0); Lymphocyte % 5.2 % (25-47); Mean Corpuscular HGB Conc 34 g/dl (31-36); Mean Corpuscular Hemoglobin 32 pg (27-31); Mean Corpuscular Volume 95 fL (80-94); Mean Platelet Volume 9 um3 (7.4-10.4); Nucleated Red Blood Cells % 0; Platelet Count 256 10^3/ul (150-450); Red Blood Count 2.48 10^6/ul (4.0-5.4); Red Cell Distribution Width 16 % (10.5-15); White Blood Count 15.9 10^3/ul (3.5-10.8)
[2017-04-29 06:00] LABS: EGFR Non-African American 47.2 (>60)
[2017-04-29] MEDS ORDERED: Chlorothiazide IV* 250 MG in NS 0.9% 50 ML* 50 ML IVPB ONE (10:00)
[2017-04-29] MEDS ORDERED: Furosemide IV* 10 MG/ML VIAL (40 MG) IV SLOW PU ONE (10:30)
[2017-04-29] MEDS ORDERED: NS 0.9% 100 ML* 100 ML ONE (10:31)
[2017-04-29] MEDS: CMCS: Nebivolol TAB (NF) 2.5 MG TAB PO SCH (10:38)
[2017-04-29] MEDS: Famotidine IV* 10 MG/ML 2 ML (20 mg) IV SCH (10:38)
[2017-04-29] MEDS: Potassium Chloride LIQUID* 20 MEQ PACKET PO SCH ×2 (10:39→20:49)
[2017-04-29] MEDS: Folic Acid TAB* 1 MG PO SCH (10:39)
[2017-04-29] MEDS: Allopurinol TAB* 100 MG PO SCH (10:39)
[2017-04-29] MEDS: Multivitamins ADULT w/MIN LIQ* 15 ML UDC PO SCH (10:40)
[2017-04-29] MEDS: Potassium Chloride IV* 40 MEQ in D5W 1000 ML BAG* 1,000 ML IVPB SCH (10:41)
[2017-04-29] MEDS: Thiamine TAB* 100 MG TAB PO SCH (10:42)
--- NOTE | 2017-04-29 11:14 | PN ---
Progress Note - Progress Note Date of Service: 04/29/17 Note: CRITICAL CARE MEDICINE Date: 04/29/17 Time: 940 SUBJECTIVE: Patient seen and examined. PHYSICAL EXAM: Vital Signs: Reviewed. Neurologic: awakens quicker. globally weak but a little better overall movement and quicker with commands. better eye opening. HEENT: pupils equal and reactive. Sclera anicteric. Trachea midline. ett Cardiovascular: distant, S1 S2 Respiratory: distant, better with mild rhonchi Abdomen: Soft, nt. No r/g/r. Extremities: Warm. depend edema. Access: R IJ LABS: Reviewed. IMAGING: Reviewed. MEDICATIONS: Reviewed. ASSESSMENT: 76 M MSSA large expansive epidural abscess Left knee mssa septic arthropathy Right shoulder septic arthropathy Post op resp failure Acute delirium MARE Malnutrition mod degree Deconditioning PLAN: Neurologic: off sedatives and is better today. still globally weak. may have a pronounce quiet delirum still but managing to improve. Cardiovascular: perfusing. dep edema with some mobilization yesterday. continue with this today. off ivf. water replacement via ng Respiratory: cpap with minimal support. tolerting better. needs to liberate. Gastrointestinal: conitnued tf via ng. sup. free water flushes Renal/Metabolic: Na better. fx holding. bermudez Infectious Disease: oxacillin continued. ID follow. Hematology: stable. subq heparin Endocrine: f/u needs. Musculoskeletal: bedrest and deconditioiong ongoing. pt/ot. consider bone scan if wbc were to really climb or fever question. ortho following. Psych/Social: will look to d/w family; long road ahead Supportive and preventative care as ordered. SUP: pepcid VTE prophylaxis: heparin Bermudez catheter given critical illness, monitoring needs for accurate assessment of MARE and KDIGO criteria for critically ill patients and to avoid potential harms of urinary retention, skin breakdown/ulcers. Disposition: ICU care Code Status: Full Critical Care Time: 35min Placido Dyson DO
--- NOTE | 2017-04-29 11:31 | PN ---
Progress Note - Progress Note Date of Service: 04/29/17 SOAP: Subjective: []Patient seen at bedside. He is still intubated but per nursing will be extubated soon. He remains unable to participate in exam but confirms with head nod that his back and knee hurt. Objective: [] Temp Pulse Resp BP Pulse Ox 100.0 F 70 13 158/63 100 04/29/17 07:00 04/29/17 07:00 04/29/17 07:00 04/29/17 06:30 04/29/17 07:00 Laboratory Last Values WBC 15.9 10^3/ul (3.5-10.8) H 04/29/17 05:31 RBC 2.48 10^6/ul (4.0-5.4) L 04/29/17 05:31 Hgb 7.9 g/dl (14.0-18.0) L 04/29/17 05:31 Hct 23 % (42-52) L 04/29/17 05:31 MCV 95 fL (80-94) H 04/29/17 05:31 MCH 32 pg (27-31) H 04/29/17 05:31 MCHC 34 g/dl (31-36) 04/29/17 05:31 RDW 16 % (10.5-15) H 04/29/17 05:31 Plt Count 256 10^3/ul (150-450) 04/29/17 05:31 MPV 9 um3 (7.4-10.4) 04/29/17 05:31 Neut % (Auto) 89.0 % (38-83) H 04/29/17 05:31 Lymph % (Auto) 5.2 % (25-47) L 04/29/17 05:31 Prowers % (Auto) 4.3 % (0-7) 04/29/17 05:31 Eos % (Auto) 1.2 % (0-6) 04/29/17 05:31 Baso % (Auto) 0.3 % (0-2) 04/29/17 05:31 Absolute Neuts (auto) 14.2 10^3/ul (1.5-7.7) H 04/29/17 05:31 Absolute Lymphs (auto) 0.8 10^3/ul (1.0-4.8) L 04/29/17 05:31 Absolute Monos (auto) 0.7 10^3/ul (0-0.8) 04/29/17 05:31 Absolute Eos (auto) 0.2 10^3/ul (0-0.6) 04/29/17 05:31 Absolute Basos (auto) 0.1 10^3/ul (0-0.2) 04/29/17 05:31 Absolute Nucleated RBC 0 10^3/ul 04/29/17 05:31 Nucleated RBC % 0 04/29/17 05:31 INR (Anticoag Therapy) 1.18 (0.77-1.02) H 04/23/17 00:48 APTT 35.6 seconds (26.0-36.3) 04/23/17 00:48 Patient Temperature Not Reportable 04/23/17 00:48 ABG pH 7.44 (7.35-7.45) 03 00:48 ABG pH (Temp Correct) Not Reportable 04/23/17 00:48 ABG pCO2 31 mmHg (35-45) L 04/23/17 00:48 ABG pCO2 (Temp Corrct Not Reportable 04/23/17 00:48 ABG pO2 128 mmHg (80-100) H 04/23/17 00:48 ABG pO2 (Temp Correct Not Reportable 04/23/17 00:48 ABG HCO3 23.0 mmol/L (19-31) 03 00:48 ABG O2 Saturation 99.2 % (95-98) H 04/23/17 00:48 ABG Base Excess -2.5 (-2.0-2.0) L 04/23/17 00:48 Respiration Rate 14 04/23/17 00:48 O2 Delivery Device ventilator 04/23/17 00:48 Ventilator Type 600 04/23/17 00:48 Vent Mode apv 04/23/17 00:48 FiO2 50 04/23/17 00:48 Inspiratory Time 1.0 03 00:48 PEEP 5 04/23/17 00:48 Pressure Support Not Reportable 04/23/17 00:48 Pressure Control Not Reportable 04/23/17 00:48 EPAP Not Reportable 04/23/17 00:48 IPAP Not Reportable 04/23/17 00:48 BiPAP Not Reportable 04/23/17 00:48 Sodium 147 mmol/L (133-145) H 04/29/17 05:31 Potassium 3.8 mmol/L (3.5-5.0) 04/29/17 05:31 Chloride 120 mmol/L (101-111) H 04/29/17 05:31 Carbon Dioxide 22 mmol/L (22-32) 04/29/17 05:31 Anion Gap 5 mmol/L (2-11) 04/29/17 05:31 BUN 33 mg/dL (6-24) H 04/29/17 05:31 Creatinine 1.46 mg/dL (0.67-1.17) H 04/29/17 05:31 Est GFR ( Amer) 60.7 (>60) 04/29/17 05:31 Est GFR (Non-Af Amer) 47.2 (>60) 04/29/17 05:31 BUN/Creatinine Ratio 22.6 (8-20) H 04/29/17 05:31 Glucose 162 mg/dL (70-100) H 04/29/17 05:31 Lactic Acid 1.1 mmol/L (0.5-2.0) 04/21/17 08:43 Calcium 7.3 mg/dL (8.6-10.3) L 04/29/17 05:31 Phosphorus 3.6 mg/dL (2.5-5.0) 04/29/17 05:31 Magnesium 2.3 mg/dL (1.9-2.7) 04/29/17 05:31 Total Bilirubin 0.70 mg/dL (0.2-1.0) 04/29/17 05:31 AST 38 U/L (13-39) 04/29/17 05:31 ALT 32 U/L (7-52) 04/29/17 05:31 Alkaline Phosphatase 101 U/L (34-104) 04/29/17 05:31 Troponin I 0.03 ng/mL (<0.04) 04/21/17 04:40 C-Reactive Protein 166.13 mg/L (< 5.00) H 04/21/17 04:40 Total Protein 4.7 g/dL (6.4-8.9) L 04/29/17 05:31 Albumin 1.8 g/dL (3.2-5.2) L 04/29/17 05:31 Globulin 2.9 g/dL (2-4) 04/29/17 05:31 Albumin/Globulin Ratio 0.6 (1-3) L 04/29/17 05:31 Lipase 28 U/L (11.0-82.0) 04/21/17 04:40 Fluid Source Synovial 04/23/17 10:30 Fluid Volume 3 mL 04/23/17 10:30 Fluid Color Yellow 04/23/17 10:30 Fluid Appearance Cloudy 04/23/17 10:30 Fluid WBC 74342 /mcL (0-076679) 04/23/17 10:30 Fluid RBC 79241 /mcL 04/23/17 10:30 Fluid Tot Cell Count 100 04/23/17 10:30 Fluid Neutrophils 94 % 04/23/17 10:30 Fluid Lymphocytes 6 % 04/23/17 10:30 Fluid Other Cells 1 04/23/17 10:30 Fluid Cell Count Rvw By 04/23/17 10:30 Fluid Crystals None seen (None Seen) 04/23/17 10:30 Fluid Total Protein 3.1 g/dL 04/23/17 10:30 Blood Type O Positive 04/22/17 04:11 Antibody Screen Negative 04/22/17 04:11 Crossmatch See Detail 04/22/17 04:11 General: Intubated. Opening eyes, slight head nods to answer questions. LLE: Knee dressing changed. Incision clean, dry, intact with no surrounding erythema and no drainage. Calf is supple, nonerythematous, no palpable cords. DP pulse 1+, foot is warm. RUE: shoulder dressing changed, incisions CDI. Radial pulse 2+. Hand warm with capillary refill less than 3 seconds Assessment: []POD 6 I&D open L knee, liner exchange POD 3 I&D arthroscopic R shoulder Plan: - Extubation today per ICU staff - Continue Oxacillin - DSD change every other day L knee and R shoulder, last completed 04/29
[2017-04-29] MEDS: Metolazone TAB* 5 MG NG TUBE SCH ×2 (12:25→20:51)
--- NOTE | 2017-04-29 20:29 | PN ---
Progress Note - Progress Note Date of Service: 04/29/17 SOAP: Subjective: []No events ON. In ICU. Extubated. On Abx IV. On TF. PICC line placed today Objective: []VSS Wound s,c,d. Dressing changed. Eyes open to pain, no verbal, RADHA, Face symmetric, Follows commands. Nichole consistently, hand court supervisor bilaterally, bilateral foot PF/DF toes F/E to command. Lt knee, Rt Shoulder sp surgery. Sensory grimaces to pain to all extremities Assessment: []76 yom POD#7 multilevel laminectomies for holospinal epidural abscess Plan: []Monitor VS, Neurochecks. Monitor wound. Monitor labs. Wound change q 2 days. PT/OT when able to participate. Abx per ID TEDS and SCDs. Appreciate ICU, IM, Orthopedic care. Armond Melendrez MD
[2017-04-29] MEDS: Acetaminophen ADULT LIQ* 650 MG/20.3 ML UDC NG TUBE PRN (20:49)
[2017-04-30] MEDS: Chlorhexidine MOUTHWASH 0.12%* 15 ML UDC TOPICAL SCH ×7 (00:23→22:47)
[2017-04-30] MEDS: Oxacillin(*) 2 GM in NS 0.9% 100 ML* 100 ML IVPB SCH ×6 (01:09→20:18)
[2017-04-30] MEDS: Heparin VIAL(*) 5000 UNITS/ML VIAL (FIVE THOUSAND) SUBCUT SCH ×3 (05:25→22:46)
[2017-04-30 06:43] LABS: Hematocrit 21 % (42-52); Mean Corpuscular HGB Conc 33 g/dl (31-36); Mean Corpuscular Hemoglobin 31 pg (27-31); Mean Corpuscular Volume 95 fL (80-94); Mean Platelet Volume 9 um3 (7.4-10.4); Platelet Count 250 10^3/ul (150-450); Red Blood Count 2.22 10^6/ul (4.0-5.4); Red Cell Distribution Width 16 % (10.5-15); White Blood Count 17.3 10^3/ul (3.5-10.8)
[2017-04-30 07:03] LABS: EGFR Non-African American 46.5 (>60)
[2017-04-30 09:18] LABS: Monocytes % 4 % (0-7)
[2017-04-30] MEDS: Famotidine IV* 10 MG/ML 2 ML (20 mg) IV SCH (09:40)
[2017-04-30] MEDS: Allopurinol TAB* 100 MG PO SCH (09:40)
[2017-04-30] MEDS: Metolazone TAB* 5 MG NG TUBE SCH (09:40)
[2017-04-30] MEDS: Potassium Chloride LIQUID* 20 MEQ PACKET PO SCH ×2 (09:40→20:18)
[2017-04-30] MEDS: CMCS: Nebivolol TAB (NF) 2.5 MG TAB PO SCH (09:40)
[2017-04-30] MEDS: Thiamine TAB* 100 MG TAB PO SCH (09:40)
[2017-04-30] MEDS: Folic Acid TAB* 1 MG PO SCH (09:40)
[2017-04-30] MEDS: Multivitamins ADULT w/MIN LIQ* 15 ML UDC PO SCH (09:40)
--- NOTE | 2017-04-30 09:56 | PN ---
Date of Service: 04/30/17 - [facility] progress note Critical Care Services: Pt seen and examined at bedside this am. No acute events o/n. Vital Signs: Temp Pulse Resp BP SpO2 FiO2 99.5 F 66 23 134/48 100 25 04/30/17 07:01 04/30/17 07:01 04/30/17 07:01 04/30/17 07:01 04/30/17 07:01 04/29 12:00 Physical Exam: Gen: Pt in NAD, drowsy, opens eyes to verbal stimuli HEENT: PERRLA, No JVD Lungs: Rhonchi+ b/l, good a/e b/l Cardiac: S1, S2+, regular Abdomen: Soft, BS+ Extremities: Edema + b/l, withdraws to painful stimuli, dressings to Lt knee, Rt Shoulder Neuro: Sleeping and drowsy for most part, responds to verbal stimuli by opening eyes Fluid Balance (Past 24 Hours): Y=8952 O= 5440 Net -3333 Intake & Output 04/28/17 04/29/17 04/30/17 05/01/17 06:59 06:59 06:59 06:59 Intake Total 2929 4367 2107 Output Total 1555 4955 5440 Balance 1374 -308 -3333 Weight 238 lb 1.588 oz 232 lb 5.875 oz 231 lb 11.293 oz Intake: IV Fluids 1935 2226 1412 D5W 1/2 NS 40 meq KCL 637 D5w 40 meq KCl 1002 1769 591 NS (0.9%) 130 184 198 Oxacillin 166 273 623 IVPB 455 384 130 NS (0.9%) 130 Oxacillin 455 384 Medicated IV 171 CC - Propofol/Diprivan 171 Tube Feeding 88 1257 530 Tube Feeding Flush Amount 500 35 NG Tube Irrigate Amount 280 NGT 250 Output: AREN #1 35 5 AREN #2 5 AREN #3 15 Hackett 1500 4950 5440 Other: Date of Last Bowel 04/29/2017 04/30/2017 Movement # Bowel Movements 4 6 Estimated Stool Amount Medium Medium Labs: Laboratory Results - last 24 hr 04/30/17 04/30/17 05:38 05:38 WBC 17.3 H RBC 2.22 L Hgb 7.0 L Hct 21 L MCV 95 H MCH 31 MCHC 33 RDW 16 H Plt Count 250 MPV 9 Neut % (Auto) Not Reportable Lymph % (Auto) Not Reportable Piatt % (Auto) Not Reportable Eos % (Auto) Not Reportable Baso % (Auto) Not Reportable Absolute Neuts (auto) Not Reportable Absolute Lymphs (auto) Not Reportable Absolute Monos (auto) Not Reportable Absolute Eos (auto) Not Reportable Absolute Basos (auto) Not Reportable Absolute Nucleated RBC Not Reportable Immature Gran % 2 Neutrophils % 89 H Band Neutrophils % 1 Lymphocytes % 3 L Monocytes % 4 Eosinophils % 1 Basophils % 1 Metamyelocytes % 1 Nucleated RBC % Not Reportable Abs Neuts (Manual) 15.4 H Abs Monocytes (Manual) 0.7 Absolute Eos (Manual) 0.2 Abs Basophils (Manual) 0.2 Normal RBC Morphology Normal Sodium 146 H Potassium 3.5 Chloride 116 H Carbon Dioxide 24 Anion Gap 6 BUN 33 H Creatinine 1.48 H Est GFR ( Amer) 59.8 Est GFR (Non-Af Amer) 46.5 BUN/Creatinine Ratio 22.3 H Glucose 111 H Calcium 7.5 L Phosphorus 4.8 Magnesium 2.1 Impression: 1. Multilevel epidural abscess s/p drainage 2. Septic arthritis - rt shoulder, Left knee s/p drainage 3. Delirium 4. Post Op resp failure s/p extubation 04/29/17 5. Acute hypoxic resp failure on vapotherm 6. MARE 7. Malnutrition 8.Leucocytosis 9. Anemia 10. Hypernatremia, improving Plan: 1. Neuro: Has been off sedation for 48 hrs, still delirius, improving as per bedside RN. Pt able to follow simple commands 2. Resp: Post resp failure s/p extubation 04/29/17, currently on vapotherm, FiO2 requirement improving, Having dark brown, thick phleghm, pulm toilet, sounds rhonchorus, c/w nebs 3. CVS: Hemodynamically stable at this time, not needing pressors, receiving diuretic as needed for fluid overload. c/w bystolic 4. ID: Epidural abscess s/p drainage, Left knee and Rt shoulder were also cleaned, sites look clean, leucocytosis worsening, on Oxacillin for MSSA sepsis 5. GI: c/w tube feeds for now given mental status, having loose stools, changed to Jevity to decrease fiber load. Malnutrition, low albumin resulting in anasarca 6. Renal: ARF, stable, IVF fluids d/yunior sec to fluid overload, monitor UO closely, diuretic as needed prn. Hypernatremia, improving, free water through NGT 7. Endo: Bl sugars acceptable, Insulin SS if needed 8. Haem: Leucocytosis, Anemia. H&H stable, no bleeding. 9. Musculoskeletal : Dressing on Lt knee, Rt shoulder intact and site looks clean. PT f/u today. Plan for PMRU when stable 10. DVT px: Heparin Sq Code status: Full code Critical Care Time: 30 min
--- NOTE | 2017-04-30 11:08 | PN ---
Progress Note - Progress Note Date of Service: 04/30/17 SOAP: Subjective: 76 year old gentleman, critically ill with sepsis, unknown source, s/p laminectomies for epidural abscess, s/p L knee washout and liner exchange POD , #7, POD #4 I&D arthroscopic R shoulder. Patient extubated, lying in bed sleeping. Tmax elevated to 100 Objective: General- Extubated, resting in bed sleeping MSK- Skin surrounding dressings on R shoulder, L knee intact, no induration, no erythema noted. No drainage noted on dressings, no odor. DP pulsese 1+ L foot, foot warm. Vital Signs Temp 99.5 F 04/30/17 07:01 Pulse 66 04/30/17 07:01 Resp 23 04/30/17 07:01 BP 134/48 04/30/17 07:01 Pulse Ox 100 04/30/17 07:01 Intake & Output 04/29/17 04/30/17 04/30/17 18:59 06:59 18:59 Intake Total 1102 1005 Output Total 2800 2640 Balance -1698 -1635 Weight 105.1 kg Intake: IV Fluids 690 722 D5w 40 meq KCl 591 NS (0.9%) 99 99 Oxacillin 623 IVPB 130 NS (0.9%) 130 Tube Feeding 247 283 Tube Feeding Flush Amount 35 Output: Hackett 2800 2640 Other: Date of Last Bowel 04/30/2017 Movement # Bowel Movements 6 Estimated Stool Amount Medium Assessment POD 7 I&D open L knee, liner exchange POD 4 I&D arthroscopic R shoulder] Plan: - Elevating WBC since 04/28 - Oxacillin per ID and cultures - + recent blood culture, probable contimaniate, repeat negative . - Acetaminophen (Tylenol Adult Liq*) 650 mg NG TUBE Q4H PRN PRN Reason: FEVER/PAIN Last Admin: 04/29/17 20:49 Dose: 650 mg Allopurinol (Zyloprim Tab*) 100 mg PO QAM [facility] Last Admin: 04/30/17 09:40 Dose: 100 mg Chlorhexidine Gluconate (Peridex Mouth Wash 0.12%*) 15 ml TOPICAL Q4H [facility] Last Admin: 04/30/17 10:16 Dose: 15 ml Famotidine (Pepcid Iv*) 20 mg IV DAILY [facility] Last Admin: 04/30/17 09:40 Dose: 20 mg Fentanyl Citrate (Fentanyl*) 50 mcg IV SLOW PU Q2H PRN PRN Reason: PAIN Last Admin: 04/29/17 00:12 Dose: 50 mcg Folic Acid (Folvite Tab*) 1 mg PO DAILY [facility] Last Admin: 04/30/17 09:40 Dose: 1 mg Heparin Sodium (Porcine) (Heparin Vial(*)) 5,000 units SUBCUT Q8HR [facility] Last Admin: 04/30/17 05:25 Dose: 5,000 units Oxacillin Sodium 2 gm/ Sodium (Chloride) 100 mls @ 200 mls/hr IVPB Q4H [facility] Last Admin: 04/30/17 09:40 Dose: 200 mls/hr Midazolam HCl (Versed 2mg/2ml*) 2 mg IV Q2HR PRN PRN Reason: ANXIETY Last Admin: 04/29/17 01:15 Dose: 2 mg Multivitamins (Theragran W/Minerals Liq*) 15 ml PO DAILY [facility] Last Admin: 04/30/17 09:40 Dose: 15 ml Nebivolol (Bystolic Tab (Nf)) 10 mg PO QAM [facility] Last Admin: 04/30/17 09:40 Dose: 10 mg Ondansetron HCl (Zofran Inj*) 4 mg IV Q6H PRN PRN Reason: NAUSEA/VOMITING Potassium Chloride (Klor-Con Liquid*) 20 meq PO BID [facility] Last Admin: 04/30/17 09:40 Dose: 20 meq Thiamine HCl (Vitamin B-1 Tab*) 100 mg PO DAILY [facility] Last Admin: 04/30/17 09:40 Dose: 100 mg <Layla Hyde - Last Filed: 04/30/17 11:19> - Progress Note SOAP: Subjective: Extubated, but sleepy. Objective: Patient responded once with a yes/no answer, otherwise mostly kept his eyes closed and didn't respond to questions. RUE: - shoulder dressing in place; no patient recoil with PROM to 70 forward flexion LLE: - inc c/d/i - only mild effusion left knee - warmth left knee Assessment: POD 7 I&D open L knee, liner exchange POD 4 I&D arthroscopic R shoulder Plan: - continue IV abx - continue to monitor WBC; if it normalizes then CRP - when patient becomes more alert, PE will be more reliable to determine if second washout required of either joint - considered left knee aspiratio to determine how effectively infection has been eradicated there; will hold off for now and might consider this weekend or next week if WBC continue to elevate and/or doesn't normalize soon <Dco Galan - Last Filed: 05/01/17 21:45>
[2017-04-30] MEDS: Acetaminophen ADULT LIQ* 650 MG/20.3 ML UDC NG TUBE PRN (20:18)
[2017-04-30] MEDS: fentaNYL* 50 MCG/ML 2 ML VIAL (100 MCG VIAL) IV SLOW PU PRN (20:19)
[2017-05-01] MEDS: Oxacillin(*) 2 GM in NS 0.9% 100 ML* 100 ML IVPB SCH ×4 (00:58→13:29)
[2017-05-01] MEDS: Heparin VIAL(*) 5000 UNITS/ML VIAL (FIVE THOUSAND) SUBCUT SCH ×3 (05:56→22:11)
[2017-05-01 06:33] LABS: EGFR Non-African American 49.5 (>60)
[2017-05-01 07:03] LABS: Hematocrit 19 % (42-52); Hemoglobin 6.5 g/dl (14.0-18.0); Mean Corpuscular HGB Conc 34 g/dl (31-36); Mean Corpuscular Hemoglobin 32 pg (27-31); Mean Corpuscular Volume 95 fL (80-94); Mean Platelet Volume 8 um3 (7.4-10.4); Platelet Count 224 10^3/ul (150-450); Red Cell Distribution Width 16 % (10.5-15); White Blood Count 13.1 10^3/ul (3.5-10.8)
[2017-05-01] MEDS: Multivitamins ADULT w/MIN LIQ* 15 ML UDC PO SCH (08:30)
[2017-05-01] MEDS: Famotidine IV* 10 MG/ML 2 ML (20 mg) IV SCH (08:30)
[2017-05-01] MEDS: Folic Acid TAB* 1 MG PO SCH (08:31)
[2017-05-01] MEDS: Potassium Chloride LIQUID* 20 MEQ PACKET PO SCH ×2 (08:32→22:12)
[2017-05-01] MEDS: Thiamine TAB* 100 MG TAB PO SCH (08:33)
--- NOTE | 2017-05-01 10:00 | PN ---
Progress Note - Progress Note Date of Service: 05/01/17 SOAP: Subjective: Pt was lying comfortably in bed. Minimally responsive. Nodded yes when asked if feeling well. Objective: PE: 76 y/o lying in bed NAD RUE- dressing changed, inc c/d/i, no warmth or erythema, +2 radial pulse, SILT distally LLE- dressing changed, inc c/d/i, no warmth or erythema, calf soft, NVI Vital Signs Temp Pulse Resp BP Pulse Ox 100.2 F 71 23 147/37 96 05/01/17 09:31 05/01/17 09:31 05/01/17 09:31 05/01/17 09:31 05/01/17 09:31 Laboratory Results - last 24 hr 05/01/17 05/01/17 05:58 05:58 WBC 13.1 H RBC 2.00 L Hgb 6.5 L Hct 19 L MCV 95 H MCH 32 H MCHC 34 RDW 16 H Plt Count 224 MPV 8 Sodium 144 Potassium 3.4 L Chloride 114 H Carbon Dioxide 25 Anion Gap 5 BUN 30 H Creatinine 1.40 H Est GFR ( Amer) 63.7 Est GFR (Non-Af Amer) 49.5 BUN/Creatinine Ratio 21.4 H Glucose 126 H Calcium 7.5 L Total Bilirubin 0.50 AST 23 ALT 22 Alkaline Phosphatase 73 Total Protein 4.5 L Albumin 1.7 L Globulin 2.8 Albumin/Globulin Ratio 0.6 L Assessment POD 8 I&D open L knee, liner exchange POD 5 I&D arthroscopic R shoulder] Plan: - WBC decreased from yesterday, will cont to monitor -If WBCs cont to increase then aspiration of the knee will be considered - ABX per ID and cultures - Dressings changes today, next dressing change Mon 05/03.
[2017-05-01] MEDS: CMCS: Nebivolol TAB (NF) 2.5 MG TAB PO SCH (10:01)
[2017-05-01] MEDS: Allopurinol TAB* 100 MG PO SCH (10:01)
--- NOTE | 2017-05-01 11:01 | PN ---
Progress Note - Progress Note Date of Service: 05/01/17 Note: CRITICAL CARE MEDICINE Date: 05/01/17 Time: 1000 SUBJECTIVE: Patient seen and examined. PHYSICAL EXAM: Vital Signs: Reviewed. Neurologic: awakens. communicating, but weak verbally. & globally weak. collier HEENT: pupils equal and reactive. Sclera anicteric. Trachea midline. dry mm Cardiovascular: distant, S1 S2 Respiratory: mod rhonchi R>L; weak cough. poor gag Abdomen: Soft, obese, nt. Extremities: Warm. less edema. dressings in place Access: picc LABS: Reviewed. IMAGING: Reviewed. MEDICATIONS: Reviewed. ASSESSMENT: 76 M MSSA large expansive epidural abscess Left knee mssa septic arthropathy Right shoulder septic arthropathy Post op resp failure Acute delirium - quiet MARE Malnutrition mod degree Deconditioning Aspiration PLAN: Neurologic: maintaining and limit sedatives. actual denied pain this am. still with delirium but no rx required Cardiovascular: perfusing. dep edema better but mobilize again today with diuretics. Respiratory: on RA but certainly with poor secretion clearance and atelectasis that he still needs to overcome. pulm toliet as able but limited. would really like to avoid re-intubation. Gastrointestinal: continued tf via ng. hopefully can gain strength towards wednesday and re-eval swallow. sup. free water flushes Renal/Metabolic: Na improving. fx holding. bermudez Infectious Disease: oxacillin continued. ID following. Hematology: stable but anemia of chronic dz and icu lingering. transfuse 1 unit prbc and lab holiday tomorrow and limited draws. when tolerating po could perhaps tolerate iron suppl. subq heparin Endocrine: stable Musculoskeletal: bedrest and deconditioning. pt/ot. ortho following. Psych/Social: will look to d/w family; still long road ahead Supportive and preventative care as ordered. SUP: pepcid VTE prophylaxis: heparin Bermudez catheter given critical illness, monitoring needs for accurate assessment of MARE and KDIGO criteria for critically ill patients and to avoid potential harms of urinary retention, skin breakdown/ulcers. Disposition: ICU needs Code Status: Full Critical Care Time: 30min Placido Dyson DO
[2017-05-01] MEDS ORDERED: Metolazone TAB* 5 MG NG TUBE ONE (12:30)
[2017-05-01] MEDS ORDERED: Furosemide IV* 10 MG/ML VIAL (40 MG) IV SLOW PU ONE (13:00)
[2017-05-01] MEDS: OXACILLIN IVPB SCH ×2 (17:21→22:12)
[2017-05-01] MEDS: NS 0.9% IVPB SCH ×2 (17:21→22:12)
[2017-05-02] MEDS: fentaNYL* 50 MCG/ML 2 ML VIAL (100 MCG VIAL) IV SLOW PU PRN ×2 (00:50→06:05)
[2017-05-02] MEDS: OXACILLIN IVPB SCH ×6 (00:50→21:24)
[2017-05-02] MEDS: NS 0.9% IVPB SCH ×6 (00:50→21:24)
[2017-05-02] MEDS: Heparin VIAL(*) 5000 UNITS/ML VIAL (FIVE THOUSAND) SUBCUT SCH ×3 (06:05→21:24)
[2017-05-02] MEDS: Multivitamins ADULT w/MIN LIQ* 15 ML UDC PO SCH (09:03)
[2017-05-02] MEDS: Famotidine IV* 10 MG/ML 2 ML (20 mg) IV SCH (09:03)
[2017-05-02] MEDS: Allopurinol TAB* 100 MG PO SCH (09:04)
[2017-05-02] MEDS: Potassium Chloride LIQUID* 20 MEQ PACKET PO SCH ×2 (09:04→21:24)
[2017-05-02] MEDS: Thiamine TAB* 100 MG TAB PO SCH (09:04)
[2017-05-02] MEDS: CMCS: Nebivolol TAB (NF) 2.5 MG TAB PO SCH (09:04)
[2017-05-02] MEDS: Folic Acid TAB* 1 MG PO SCH (09:04)
--- NOTE | 2017-05-02 09:17 | PN ---
Progress Note - Progress Note Date of Service: 05/02/17 SOAP: Subjective: Pt is doing well. More alert today. Able to indicate yes or no. Pain controlled. Lying in bed comfortably Objective: PE- 76 y/o WDWN M NAD, lying comfortably in bed LLE- dressing c/d/i, able to PF/DF ankle when asked, NVI, calf soft NT RUE- dressing c/d/i, able to F/E elbow and wrist, +2 R pulse, SILT distally Vital Signs Temp Pulse Resp BP Pulse Ox 100.9 F 76 17 161/72 91 05/02/17 07:00 05/02/17 07:00 05/02/17 07:00 05/02/17 07:00 05/02/17 07:00 Laboratory Results - last 24 hr 05/01/17 05:58 Blood Type O Positive Antibody Screen Negative Crossmatch See Detail Assessment POD 9 I&D open L knee, liner exchange POD 6 I&D arthroscopic R shoulder] Plan: - WBC continue to trend downward, cont to monitor -CPR tomorrow -If WBCs increase then aspiration of the knee will be considered - ABX per ID and cultures - Dressing to be changed Mon 05/03.
[2017-05-02] MEDS: Acetaminophen ADULT LIQ* 650 MG/20.3 ML UDC NG TUBE PRN ×3 (09:33→15:46)
--- NOTE | 2017-05-02 12:13 | PN ---
Progress Note - Progress Note Date of Service: 05/02/17 Note: CRITICAL CARE MEDICINE Date: 05/02/17 Time: 900 SUBJECTIVE: Patient seen and examined. PHYSICAL EXAM: Vital Signs: Reviewed. Neurologic: awakens. communicating, but weak verbally still. globally weak. collier weak HEENT: pupils equal and reactive. Sclera anicteric. Trachea midline. awake snoring but protrudes tongue and dissipates Cardiovascular: distant, S1 S2 Respiratory: mild rhonchi R>L; poor cough. Abdomen: Soft, obese, nt. Extremities: Warm. less edema. dressings in place Access: picc LABS: Reviewed. IMAGING: Reviewed. MEDICATIONS: Reviewed. ASSESSMENT: 76 M MSSA large expansive epidural abscess Left knee mssa septic arthropathy Right shoulder septic arthropathy Post op resp failure Acute delirium - quiet MARE Malnutrition mod degree Deconditioning Aspiration PLAN: Neurologic: seems to be slowly slowly improving every day. prns Cardiovascular: perfusing. edema better. hold off on diuretics. Respiratory: on RA. still with poor secretion clearance. pulm toilet needs continued. Gastrointestinal: continued tf via ng. hre-idalia swallow wednesday but still unlikley to pass and certainly won't fulfill his requirements without continuyed ngt for a while but hopefully can avoid peg as he still needs time Renal/Metabolic: fx holding; labs harley. aidan due to status Infectious Disease: oxacillin- ID following. Hematology: post 1 unit. tolerating. check harley. subq heparin Endocrine: stable Musculoskeletal: Deconditioning ongoing. chair position today. obb with pt/ot harley. ortho following. Psych/Social: family updated yesterday -optimistic. Supportive and preventative care as ordered. SUP: pepcid VTE prophylaxis: heparin Hackett catheter given critical illness, monitoring needs for accurate assessment of MARE and KDIGO criteria for critically ill patients and to avoid potential harms of urinary retention, skin breakdown/ulcers. Disposition: ICU towards surgical in coming days hopefully then rehab? Code Status: Full Critical Care Time: 28min Placido Dyson, DO
[2017-05-02] MEDS: Atorvastatin* 20 MG TAB NG TUBE SCH (17:04)
[2017-05-03] MEDS: OXACILLIN IVPB SCH ×6 (01:26→21:01)
[2017-05-03] MEDS: NS 0.9% IVPB SCH ×6 (01:26→21:01)
[2017-05-03 05:17] LABS: ABS Basophils 0 10^3/ul (0-0.2); ABS Eosinophils 0.2 10^3/ul (0-0.6); ABS Lymphocytes 0.8 10^3/ul (1.0-4.8); ABS Monocytes 0.7 10^3/ul (0-0.8); ABS Nucleated RBC 0 10^3/ul; Eosinophil % 1.5 % (0-6); Hematocrit 24 % (42-52); Hemoglobin 8.3 g/dl (14.0-18.0); Lymphocyte % 6.2 % (25-47); Mean Corpuscular HGB Conc 34 g/dl (31-36); Mean Corpuscular Hemoglobin 32 pg (27-31); Mean Corpuscular Volume 94 fL (80-94); Mean Platelet Volume 8 um3 (7.4-10.4); Nucleated Red Blood Cells % 0; Platelet Count 236 10^3/ul (150-450); Red Blood Count 2.56 10^6/ul (4.0-5.4); Red Cell Distribution Width 16 % (10.5-15); White Blood Count 12.7 10^3/ul (3.5-10.8)
[2017-05-03 05:33] LABS: EGFR Non-African American 50.8 (>60)
[2017-05-03] MEDS: Heparin VIAL(*) 5000 UNITS/ML VIAL (FIVE THOUSAND) SUBCUT SCH ×3 (06:30→21:14)
--- NOTE | 2017-05-03 08:15 | RAD ---
Indication: Aspiration pneumonia. Single frontal view of the chest performed at 0705 hours was reviewed. Comparison is made with previous exam dated April 26, 2017. No mediastinal shift is noted. Cardiomegaly is noted. Bilateral pleural effusions are noted. When compared to previous exam of April 26, 2017 no significant change is noted. IMPRESSION: CARDIOMEGALY WITH BILATERAL PLEURAL EFFUSION. BIBASILAR ATELECTASIS.
--- NOTE | 2017-05-03 08:40 | PN ---
Progress Note - Progress Note Date of Service: 05/03/17 SOAP: Subjective: 76 y/o male with bactermia/ septic with multiple joint infections. Extub. VSS afebrile. Objective: General- Extubated, non-verbal, able to nod for responses. denies general pain MSK- L knee- dressing removed, incision c/d/i, no drainage, warmth, erythema. No TTP. Redressed without difficulty. R shoulder- dressing removed, incisions c/d/i, redressed, no drainage, erythema, warmth, no TTP. PROM- FF ~ 30, Abd ~30 until patient nods/ grimaces to pain. Vital Signs Temp 99.7 F 05/03/17 09:00 Pulse 70 05/03/17 09:00 Resp 24 05/03/17 09:00 BP 154/69 05/03/17 09:00 Pulse Ox 96 05/03/17 09:00 Intake & Output 05/02/17 05/03/17 05/03/17 18:59 06:59 18:59 Intake Total 898 1122 Output Total 1600 1475 Balance -702 -353 Weight 96.162 kg Intake: IV Fluids 289 190 NS (0.9%) 89 190 Oxacillin 200 IVPB 294 Oxacillin 294 Tube Feeding 409 638 Tube Feeding Flush Amount 200 Output: Hackett 1600 1475 Other: Date of Last Bowel 05/02/17 Movement Assessment: POD 10 I&D open L knee, liner exchange POD 7 I&D arthroscopic R shoulder Plan: - WBC trending down, CRP down from 04/21. - IV ABX- Oxacillin, per ID. bld cx's 04/27 neg, poss contaminate - DVT prop- Heparin - PT written for- increase PROM as tolerated - Will continue to follow, Dressing changes EOD Acetaminophen (Tylenol Adult Liq*) 650 mg NG TUBE Q4H PRN PRN Reason: FEVER/PAIN Last Admin: 05/02/17 15:46 Dose: 650 mg Allopurinol (Zyloprim Tab*) 100 mg PO QAM [facility] Last Admin: 05/02/17 09:04 Dose: 100 mg Atorvastatin Calcium (Lipitor*) 20 mg NG TUBE 1700 MIKE Last Admin: 05/02/17 17:04 Dose: 20 mg Fentanyl Citrate (Fentanyl*) 25 mcg IV SLOW PU Q2H PRN PRN Reason: PAIN Heparin Sodium (Porcine) (Heparin Vial(*)) 5,000 units SUBCUT Q8HR [facility] Last Admin: 05/03/17 06:30 Dose: 5,000 units Heparin Sodium (Porcine) (Heparin Flush Picc/Ml/Cvc(*)) 0 ml FLUSH 0600,1800 MIKE PRN Reason: Protocol Last Admin: 05/03/17 06:29 Dose: 2 ml Oxacillin Sodium 2 gm/ Sodium (Chloride) 50 mls @ 100 mls/hr IVPB Q4H [facility] Last Admin: 05/03/17 05:05 Dose: 100 mls/hr Multivitamins (Theragran W/Minerals Liq*) 15 ml PO DAILY [facility] Last Admin: 05/02/17 09:03 Dose: 15 ml Nebivolol (Bystolic Tab (Nf)) 10 mg PO QAM [facility] Last Admin: 05/02/17 09:04 Dose: 10 mg Ondansetron HCl (Zofran Inj*) 4 mg IV Q6H PRN PRN Reason: NAUSEA/VOMITING Potassium Chloride (Klor-Con Liquid*) 20 meq PO BID [facility] Last Admin: 05/02/17 21:24 Dose: 20 meq Thiamine HCl (Vitamin B-1 Tab*) 100 mg PO DAILY [facility] Last Admin: 05/02/17 09:04 Dose: 100 mg
--- NOTE | 2017-05-03 11:36 | PN ---
Progress Note - Progress Note Date of Service: 05/03/17 Note: CRITICAL CARE MEDICINE Date: 05/03/17 Time: 900 SUBJECTIVE: Patient seen and examined. PHYSICAL EXAM: Vital Signs: Reviewed. Neurologic: awakens. communicating, mildly improving daily HEENT: pupils equal and reactive. Sclera anicteric. Trachea midline. awake snoring but protrudes tongue and dissipates and somewhat slightly improved. Cardiovascular: distant, S1 S2 Respiratory: mild rhonchi better. mildly better cough. Abdomen: Soft, obese, nt. Extremities: Warm. less edema. dressings in place Access: picc LABS: Reviewed. IMAGING: Reviewed. MEDICATIONS: Reviewed. ASSESSMENT: 76 M MSSA large expansive epidural abscess Left knee mssa septic arthropathy Right shoulder septic arthropathy Post op resp failure Acute delirium - quiet MARE Malnutrition mod degree Deconditioning Aspiration PLAN: Neurologic: slowly improving daily. prns Cardiovascular: perfusing. fluid stable. Respiratory: on RA. poor secretion clearance, although also slowly improving. pulm toilet needs. airway observation. Gastrointestinal: replace ngt for tf. swallow eval. hopefully can pass come later in the week towards po goals, but will certainly need ngt for now. Renal/Metabolic: stable. Infectious Disease: oxacillin. Hematology: stable. subq heparin Endocrine: stable Musculoskeletal: Deconditioning ongoing. chair position. pt/ot. oob. ortho following. Psych/Social: family up to date. Supportive and preventative care as ordered. SUP: pepcid VTE prophylaxis: heparin Hackett catheter given critical illness, monitoring needs for accurate assessment of MARE and KDIGO criteria for critically ill patients and to avoid potential harms of urinary retention, skin breakdown/ulcers. Disposition: ICU towards potential surgical floor tomorrow perhaps if airway concerns can continue to improve. Code Status: Full Critical Care Time: 30min Placido Dyson DO
[2017-05-03] MEDS: Multivitamins ADULT w/MIN LIQ* 15 ML UDC PO SCH (12:47)
[2017-05-03] MEDS: Allopurinol TAB* 100 MG PO SCH (12:48)
[2017-05-03] MEDS: CMCS: Nebivolol TAB (NF) 2.5 MG TAB PO SCH (12:48)
[2017-05-03] MEDS: Thiamine TAB* 100 MG TAB PO SCH (12:48)
[2017-05-03] MEDS: Potassium Chloride LIQUID* 20 MEQ PACKET PO SCH ×2 (12:48→21:03)
--- NOTE | 2017-05-03 13:31 | RAD ---
HISTORY: Status post NG tube placement COMPARISONS: May 03, 2017 at 7:05 AM VIEWS: 1: frontal portable view of the chest at 11:40 AM FINDINGS: LINES AND TUBES: A gastric tube is noted, redundantly within the stomach. The tip is in the stomach in a prepyloric position. A left-sided PICC line is noted with the tip overlying the superior vena cava. CARDIOMEDIASTINAL SILHOUETTE: The cardiomediastinal silhouette is normal for portable technique. PLEURA: The costophrenic angles are sharp. No pleural abnormalities are noted. LUNG PARENCHYMA: The lungs are clear. ABDOMEN: The upper abdomen is clear. There is no subphrenic gas. BONES AND SOFT TISSUES: No bone or soft tissue abnormalities are noted. IMPRESSION: LINES AND TUBES ABOVE. NO ACTIVE CARDIOPULMONARY DISEASE.
[2017-05-03] MEDS: Acetaminophen ADULT LIQ* 650 MG/20.3 ML UDC NG TUBE PRN (14:12)
[2017-05-03] MEDS: fentaNYL* 50 MCG/ML 2 ML VIAL (100 MCG VIAL) IV SLOW PU PRN (14:12)
[2017-05-03] MEDS: Atorvastatin* 20 MG TAB NG TUBE SCH (17:49)
--- NOTE | 2017-05-03 19:17 | PN ---
Progress Note - Progress Note Date of Service: 05/03/17 SOAP: Subjective: []No events ON. In ICU. Extubated. On Abx IV. On TF. Objective: []VSS Wound s,c,d. Eyes open to verbal, Ox1-2 , RADHA, Face symmetric, Follows commands. 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 Lt knee, Rt Shoulder sp surgery. Sensory: grimaces to pain to all extremities Assessment: []76 yom POD#11 multilevel laminectomies for holospinal epidural abscess Plan: [] Monitor VS, Neurochecks. Monitor wound. Monitor labs. Wound change q 2 days. PT/OT when able to participate. Abx per ID TEDS and SCDs. Appreciate ICU, IM, Orthopedic care. Armond Melendrez MD
[2017-05-04] MEDS: NS 0.9% IVPB SCH ×2 (00:49→05:12)
[2017-05-04] MEDS: OXACILLIN IVPB SCH ×2 (00:49→05:12)
[2017-05-04] MEDS: fentaNYL* 50 MCG/ML 2 ML VIAL (100 MCG VIAL) IV SLOW PU PRN (00:56)
[2017-05-04] MEDS: Heparin VIAL(*) 5000 UNITS/ML VIAL (FIVE THOUSAND) SUBCUT SCH ×3 (05:15→22:03)
[2017-05-04] MEDS: Multivitamins ADULT w/MIN LIQ* 15 ML UDC PO SCH (09:43)
[2017-05-04] MEDS: Potassium Chloride LIQUID* 20 MEQ PACKET PO SCH ×2 (09:43→22:03)
[2017-05-04] MEDS: Allopurinol TAB* 100 MG PO SCH (09:43)
[2017-05-04] MEDS: CMCS: Nebivolol TAB (NF) 2.5 MG TAB PO SCH (09:44)
[2017-05-04] MEDS: Thiamine TAB* 100 MG TAB PO SCH (09:44)
[2017-05-04] MEDS: Oxacillin(*) 2 GM in NS 0.9% 100 ML* 100 ML IVPB SCH ×2 (10:10→13:42)
--- NOTE | 2017-05-04 13:21 | PN ---
Progress Note - Progress Note Date of Service: 05/04/17 Note: CRITICAL CARE MEDICINE Date: 05/04/17 Time: 930 SUBJECTIVE: Patient seen and examined. PHYSICAL EXAM: Vital Signs: Reviewed. Neurologic: awakens. communicating, improving daily HEENT: pupils equal and reactive. Sclera anicteric. Trachea midline. awake snoring is better. protrudes tongue. mm dry. ngt Cardiovascular: distant, S1 S2 Respiratory: coarse bl. better cough. Abdomen: Soft, obese, nt. Extremities: Warm. dressings in place Access: picc LABS: Reviewed. IMAGING: Reviewed. MEDICATIONS: Reviewed. ASSESSMENT: 76 M MSSA large expansive epidural abscess Left knee mssa septic arthropathy Right shoulder septic arthropathy Post op resp failure Acute delirium - quiet MARE Malnutrition mod degree Deconditioning Aspiration PLAN: Neurologic: slowly improving. pt. prns Cardiovascular: perfusing. fluid stable. Respiratory: on RA. poor secretion clearance but improving daily. about safe as can be for floor. Gastrointestinal: ngt for tf. swallow eval f/u. Renal/Metabolic: stable. Infectious Disease: oxacillin. Hematology: stable. subq heparin Endocrine: stable Musculoskeletal: Deconditioning ongoing. chair position. pt/ot. oob. ortho following. Psych/Social: family up to date. Supportive and preventative care as ordered. SUP: pepcid VTE prophylaxis: heparin Hackett catheter given critical illness, monitoring needs for accurate assessment of MARE and KDIGO criteria for critically ill patients and to avoid potential harms of urinary retention, skin breakdown/ulcers. Disposition: ICU with potential surgical floor later today or tomorrow as we need to push him forward. Code Status: Full Critical Care Time: 30min Placido Dyson DO
--- NOTE | 2017-05-04 14:40 | PN ---
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 He cannot give ROS. No diarrhea or rash per RN. Objective: Vital Signs Temp 37.8 C 05/04/17 12:01 Pulse 67 05/04/17 12:01 Resp 25 05/04/17 12:01 BP 158/63 05/04/17 12:01 Pulse Ox 92 05/04/17 12:01 Intake & Output 05/03/17 05/04/17 05/04/17 18:59 06:59 18:59 Intake Total 388.2 1121 1051 Output Total 650 1300 475 Balance -261.8 -179 576 Weight 210 lb 1.608 oz Intake: IV Fluids 209.2 124 NS (0.9%) 71.2 124 Oxacillin 138 IVPB 286 Oxacillin 286 Tube Feeding 179 326 551 Tube Feeding Flush Amount 385 500 Output: Hackett 650 1300 475 Tube Feeding Residual 0 Amount Wasted Other: # Bowel Movements 1 1 Estimated Stool Amount Large Small Small Gen:sleeping, opens eyes to voice Neuro: withdraws feet to pain HEENT:PERRL, MMD Heart:RRR no murmur Lungs:coarse anterior BS Abd:+ BS NTND soft Skin: no rash MSK: L knee wrapped; no right knee effusion; R shoulder dressed Assessment: 1. MSSA bacteremia, cleared, due to below infections. TTE 04/22 no vegetation or regurgitant valve lesion, no peripheral stigmta of IE, will be on long course IV antibiotics so does need MIRLANDE at this point 2. encephalopathy, present on admission, persists; no nuchal regidity to suggest meningitis and has had 2 weeks oxacillin which would cover it 3. MSSA epidural abscess s/p I&D 4. 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 MSSA septic left shoulder s/p I&D 5. presence bilateral hip arthroplasties; were minimally symptomatic on initial exam Plan: 1. change oxacillin to ancef 2 gm IV Q8hrs day 14/56 of IV antibiotics
[2017-05-04] MEDS: Acetaminophen ADULT LIQ* 650 MG/20.3 ML UDC NG TUBE PRN (17:20)
[2017-05-04] MEDS: Atorvastatin* 20 MG TAB NG TUBE SCH (17:20)
[2017-05-04] MEDS: ceFAZolin 2 GM/20 ML SYRINGE IVPB Q8H IVPB SCH ×2 (17:21)
[2017-05-05] MEDS: ceFAZolin 2 GM/20 ML SYRINGE IVPB Q8H IVPB SCH ×6 (01:19→17:22)
[2017-05-05] MEDS: Heparin VIAL(*) 5000 UNITS/ML VIAL (FIVE THOUSAND) SUBCUT SCH ×3 (05:19→21:24)
[2017-05-05 05:41] LABS: ABS Basophils 0 10^3/ul (0-0.2); ABS Eosinophils 0.2 10^3/ul (0-0.6); ABS Lymphocytes 0.9 10^3/ul (1.0-4.8); ABS Monocytes 0.8 10^3/ul (0-0.8); ABS Neutrophils 9.2 10^3/ul (1.5-7.7); ABS Nucleated RBC 0 10^3/ul; Eosinophil % 1.6 % (0-6); Hematocrit 21 % (42-52); Hemoglobin 7.2 g/dl (14.0-18.0); Lymphocyte % 7.9 % (25-47); Mean Corpuscular HGB Conc 34 g/dl (31-36); Mean Corpuscular Hemoglobin 32 pg (27-31); Mean Corpuscular Volume 95 fL (80-94); Mean Platelet Volume 8 um3 (7.4-10.4); Nucleated Red Blood Cells % 0; Platelet Count 240 10^3/ul (150-450); Red Blood Count 2.27 10^6/ul (4.0-5.4); Red Cell Distribution Width 16 % (10.5-15); White Blood Count 11.1 10^3/ul (3.5-10.8)
[2017-05-05 06:02] LABS: EGFR Non-African American 54.4 (>60)
[2017-05-05] MEDS ORDERED: Potassium Chloride LIQUID* 20 MEQ PACKET PO ONE (06:17)
[2017-05-05] MEDS: KCL premix 10 MEQ/50 ML IVPREMIX x 4 RUNS IV SCH ×4 (06:46→11:00)
[2017-05-05] MEDS ORDERED: Acetylcysteine INHALATION SOL* 200 MG/ML NEB.SOLN 10 ML INH PRN (10:55)
[2017-05-05] MEDS: Multivitamins ADULT w/MIN LIQ* 15 ML UDC PO SCH (11:01)
[2017-05-05] MEDS: Allopurinol TAB* 100 MG PO SCH (11:01)
[2017-05-05] MEDS: Potassium Chloride LIQUID* 20 MEQ PACKET PO SCH ×2 (11:02→21:24)
[2017-05-05] MEDS: CMCS: Nebivolol TAB (NF) 2.5 MG TAB PO SCH (11:02)
[2017-05-05] MEDS: Thiamine TAB* 100 MG TAB PO SCH (11:02)
--- NOTE | 2017-05-05 11:28 | PN ---
Progress Note - Progress Note Date of Service: 05/05/17 Note: CRITICAL CARE MEDICINE Date: 05/05/17 Time: 830 SUBJECTIVE: Patient seen and examined. PHYSICAL EXAM: Vital Signs: Reviewed. Neurologic: awake. seemingly more alert, but still appears delirious. attempts communication but verbal is still lacking. collier HEENT: pupils equal and reactive. Sclera anicteric. Trachea midline. awake snoring still and clears with tongue protrusion. mm dry. Cardiovascular: distant, S1 S2 Respiratory: coarse bl with mild r rhonchi again. better cough. Abdomen: Soft, obese, nt. Extremities: Warm. dressings in place. mild dep edema Access: picc LABS: Reviewed. IMAGING: Reviewed. MEDICATIONS: Reviewed. ASSESSMENT: 76 M MSSA large expansive epidural abscess Left knee mssa septic arthropathy Right shoulder septic arthropathy Post op resp failure Acute delirium - quiet but ongoing MARE Malnutrition mod degree Deconditioning Aspiration PLAN: Neurologic: slowly improving but would have been more hopefully for better at this point. nonfocal, but still with tongue/airway ailment and pulled out ngt again. may need peg, but lets ensure ct head ok first. not complaining of pain. Cardiovascular: perfusing. fluid stable and keep balance even to slightly neg. Respiratory: on RA. doing about as well as he has with several icu days of observation. may need to push out of icu. Gastrointestinal: ngt needs replaced for tf. swallow eval f/u. may end up needing peg. Renal/Metabolic: stable. Infectious Disease: ancef per id. Hematology: stable. subq heparin Endocrine: stable Musculoskeletal: Deconditioning ongoing. chair position. pt/ot. oob. ortho following. Psych/Social: will look to update family. Supportive and preventative care as ordered. SUP: H2 VTE prophylaxis: heparin Hackett catheter given critical illness, monitoring needs for accurate assessment of MARE and KDIGO criteria for critically ill patients and to avoid potential harms of urinary retention, skin breakdown/ulcers. Disposition: ICU this am Code Status: Full Critical Care Time: 30min Placido Dyson DO
--- NOTE | 2017-05-05 14:33 | RAD ---
INDICATION: Encephalopathy COMPARISON: CT brain April 21, 2017 TECHNIQUE: Noncontrast axial source images were acquired from the skull base to the vertex. FINDINGS: Ventricles/sulci: There is cortical atrophy with compensatory dilatation of the CSF spaces. Brain parenchyma: There is no focal parenchymal finding, evidence of intracranial mass, or intracranial mass effect. Intracranial hemorrhage:None. Extra-axial spaces: There are no abnormal extra axial fluid collections or evidence of extra-axial mass. Calvarium: There is no calvarial fracture or other calvarial abnormality. Scalp: There is no evidence of scalp or extracalvarial soft tissue abnormality. Paranasal sinuses/mastoid: There is mild pansinusitis. There are no air-fluid levels. Mastoid air cells are well aerated. Other: None. IMPRESSION: Cortical atrophy. No acute intracranial findings. Mild pansinusitis without acute air-fluid level.
--- NOTE | 2017-05-05 17:23 | PN ---
Progress Note - Progress Note Date of Service: 05/05/17 SOAP: Subjective: []Patient seen at bedside. He is able to answer yes or no questions and indicate if he is in pain. He denies any pain today. Objective: [] Vital Signs Temp 100.8 F 05/05/17 16:00 Pulse 83 05/05/17 16:00 Resp 21 05/05/17 16:00 BP 137/95 05/05/17 16:00 Pulse Ox 92 05/05/17 16:33 Intake & Output 05/04/17 05/05/17 05/05/17 18:59 06:59 18:59 Intake Total 2051 820 272 Output Total 475 900 775 Balance 1576 -80 -503 Weight 213 lb 13.574 oz Intake: IV Fluids 292 91 52 NS (0.9%) 292 91 52 IVPB 207 220 KCL 10meq 200 NS (0.9%) 20 Oxacillin 207 Oral 0 Tube Feeding 959 522 Tube Feeding Flush Amount 500 Hackett Irrigate Amount 300 Output: Hackett 475 900 775 Other: Date of Last Bowel 05/04/17 05/05/17 Movement # Bowel Movements 1 Estimated Stool Amount Large Large Laboratory Last Values WBC 11.1 10^3/ul (3.5-10.8) H 05/05/17 05:20 RBC 2.27 10^6/ul (4.0-5.4) L 05/05/17 05:20 Hgb 7.2 g/dl (14.0-18.0) L 05/05/17 05:20 Hct 21 % (42-52) L 05/05/17 05:20 MCV 95 fL (80-94) H 05/05/17 05:20 MCH 32 pg (27-31) H 05/05/17 05:20 MCHC 34 g/dl (31-36) 05/05/17 05:20 RDW 16 % (10.5-15) H 05/05/17 05:20 Plt Count 240 10^3/ul (150-450) 05/05/17 05:20 MPV 8 um3 (7.4-10.4) 05/05/17 05:20 Neut % (Auto) 83.3 % (38-83) H 05/05/17 05:20 Lymph % (Auto) 7.9 % (25-47) L 05/05/17 05:20 Motley % (Auto) 6.9 % (0-7) 05/05/17 05:20 Eos % (Auto) 1.6 % (0-6) 05/05/17 05:20 Baso % (Auto) 0.3 % (0-2) 05/05/17 05:20 Absolute Neuts (auto) 9.2 10^3/ul (1.5-7.7) H 05/05/17 05:20 Absolute Lymphs (auto) 0.9 10^3/ul (1.0-4.8) L 05/05/17 05:20 Absolute Monos (auto) 0.8 10^3/ul (0-0.8) 05/05/17 05:20 Absolute Eos (auto) 0.2 10^3/ul (0-0.6) 05/05/17 05:20 Absolute Basos (auto) 0 10^3/ul (0-0.2) 05/05/17 05:20 Absolute Nucleated RBC 0 10^3/ul 05/05/17 05:20 Immature Gran % 2 % (0-9) 04/30/17 05:38 Neutrophils % 89 % (38-83) H 04/30/17 05:38 Band Neutrophils % 1 % (0-8) 04/30/17 05:38 Lymphocytes % 3 % (25-47) L 04/30/17 05:38 Monocytes % 4 % (0-7) 04/30/17 05:38 Eosinophils % 1 % (0-6) 04/30/17 05:38 Basophils % 1 % (0-2) 04/30/17 05:38 Metamyelocytes % 1 % (0-2) 04/30/17 05:38 Nucleated RBC % 0 05/05/17 05:20 Abs Neuts (Manual) 15.4 10^3/ul (1.5-7.7) H 04/30/17 05:38 Abs Monocytes (Manual) 0.7 10^3/ul (0-0.8) 04/30/17 05:38 Absolute Eos (Manual) 0.2 10^3/ul (0-0.6) 04/30/17 05:38 Abs Basophils (Manual) 0.2 10^3/ul (0-0.2) 04/30/17 05:38 Normal RBC Morphology Normal (Normal) 04/30/17 05:38 INR (Anticoag Therapy) 1.18 (0.77-1.02) H 04/23/17 00:48 APTT 35.6 seconds (26.0-36.3) 03 00:48 Patient Temperature Not Reportable 04/23/17 00:48 ABG pH 7.44 (7.35-7.45) 04/23/17 00:48 ABG pH (Temp Correct) Not Reportable 04/23/17 00:48 ABG pCO2 31 mmHg (35-45) L 04/23/17 00:48 ABG pCO2 (Temp Corrct Not Reportable 04/23/17 00:48 ABG pO2 128 mmHg (80-100) H 04/23/17 00:48 ABG pO2 (Temp Correct Not Reportable 04/23/17 00:48 ABG HCO3 23.0 mmol/L (19-31) 04/23/17 00:48 ABG O2 Saturation 99.2 % (95-98) H 04/23/17 00:48 ABG Base Excess -2.5 (-2.0-2.0) L 04/23/17 00:48 Respiration Rate 14 04/23/17 00:48 O2 Delivery Device ventilator 04/23/17 00:48 Ventilator Type 600 04/23/17 00:48 Vent Mode apv 04/23/17 00:48 FiO2 50 04/23/17 00:48 Inspiratory Time 1.0 04/23/17 00:48 PEEP 5 04/23/17 00:48 Pressure Support Not Reportable 04/23/17 00:48 Pressure Control Not Reportable 04/23/17 00:48 EPAP Not Reportable 04/23/17 00:48 IPAP Not Reportable 04/23/17 00:48 BiPAP Not Reportable 04/23/17 00:48 Sodium 140 mmol/L (133-145) 05/05/17 05:20 Potassium 3.4 mmol/L (3.5-5.0) L 05/05/17 14:10 Chloride 105 mmol/L (101-111) 05/05/17 05:20 Carbon Dioxide 29 mmol/L (22-32) 05/05/17 05:20 Anion Gap 6 mmol/L (2-11) 05/05/17 05:20 BUN 27 mg/dL (6-24) H 05/05/17 05:20 Creatinine 1.29 mg/dL (0.67-1.17) H 05/05/17 05:20 Est GFR ( Amer) 70.0 (>60) 05/05/17 05:20 Est GFR (Non-Af Amer) 54.4 (>60) 05/05/17 05:20 BUN/Creatinine Ratio 20.9 (8-20) H 05/05/17 05:20 Glucose 103 mg/dL (70-100) H 05/05/17 05:20 Lactic Acid 1.1 mmol/L (0.5-2.0) 04/21/17 08:43 Calcium 8.2 mg/dL (8.6-10.3) L 05/05/17 05:20 Phosphorus 4.5 mg/dL (2.5-5.0) 05/03/17 05:05 Magnesium 1.9 mg/dL (1.9-2.7) 05/03/17 05:05 Total Bilirubin 0.70 mg/dL (0.2-1.0) 05/03/17 05:05 AST 27 U/L (13-39) 05/03/17 05:05 ALT 22 U/L (7-52) 05/03/17 05:05 Alkaline Phosphatase 95 U/L (34-104) 05/03/17 05:05 Troponin I 0.03 ng/mL (<0.04) 04/21/17 04:40 C-Reactive Protein 73.33 mg/L (< 5.00) H 05/05/17 05:20 Total Protein 5.4 g/dL (6.4-8.9) L 05/03/17 05:05 Albumin 2.0 g/dL (3.2-5.2) L 05/03/17 05:05 Globulin 3.4 g/dL (2-4) 05/03/17 05:05 Albumin/Globulin Ratio 0.6 (1-3) L 05/03/17 05:05 Lipase 28 U/L (11.0-82.0) 04/21/17 04:40 Fluid Source Synovial 04/23/17 10:30 Fluid Volume 3 mL 04/23/17 10:30 Fluid Color Yellow 04/23/17 10:30 Fluid Appearance Cloudy 04/23/17 10:30 Fluid WBC 51609 /mcL (0-898641) 04/23/17 10:30 Fluid RBC 28778 /mcL 04/23/17 10:30 Fluid Tot Cell Count 100 04/23/17 10:30 Fluid Neutrophils 94 % 04/23/17 10:30 Fluid Lymphocytes 6 % 04/23/17 10:30 Fluid Other Cells 1 04/23/17 10:30 Fluid Cell Count Rvw By 04/23/17 10:30 Fluid Crystals None seen (None Seen) 04/23/17 10:30 Fluid Total Protein 3.1 g/dL 04/23/17 10:30 Blood Type O Positive 05/01/17 05:58 Antibody Screen Negative 05/01/17 05:58 Crossmatch See Detail 05/01/17 05:58 General: more interactive than previous. Able to nod/groan yes or no. MSK- L knee- dressing changed, incision c/d/i, no drainage, warmth, erythema. DP pulse 2+. Wiggles toes on command R shoulder- dressing changed incisions c/d/i, no drainage, erythema, warmth. Radial pulse 2+. Grasps hand on command Assessment: []POD 12 I&D open L knee, liner exchange POD 9 I&D arthroscopic R shoulder Plan: - IV ABX per ID:ancef 2 gm IV Q8hrs - DVT prophylaxis- Heparin - Will continue to follow, Dressing changes every other day
--- NOTE | 2017-05-05 17:41 | RAD ---
INDICATION: NG tube placement. COMPARISON: Comparison is made with a prior study from May 03, 2017. TECHNIQUE: A portable view of the chest was obtained. FINDINGS: The heart is moderately enlarged and unchanged. The lungs are underinflated. There appears to be a small right pleural effusion. There is a nasogastric tube which demonstrates normal course. The catheter tip projects in the left upper quadrant just to the left of the midline. IMPRESSION: 1. STATUS POST NASOGASTRIC TUBE PLACEMENT. 2. TRACE RIGHT PLEURAL EFFUSION.
[2017-05-05] MEDS: fentaNYL* 50 MCG/ML 2 ML VIAL (100 MCG VIAL) IV SLOW PU PRN (17:48)
[2017-05-05] MEDS: Atorvastatin* 20 MG TAB NG TUBE SCH (18:09)
[2017-05-05] MEDS ORDERED: LORazepam INJ* 2 MG/ML 1 ML VIAL ONE (20:42)
[2017-05-05] MEDS ORDERED: LORazepam INJ* 2 MG/ML 1 ML VIAL IV PUSH ONE (21:00)
--- NOTE | 2017-05-05 21:31 | PN ---
Progress Note - Progress Note Date of Service: 05/05/17 SOAP: Subjective: [] Patient seen earlier today. No events ON. In ICU. Extubated. On Abx IV. Objective: []VSS Wound s,c,d. Eyes open to verbal, Ox2 , RADHA, Face symmetric, Follows commands. Nichole consistently, hand fashion buyer bilaterally, bilateral foot PF/DF toes F/E to command. Lt knee, Rt Shoulder sp surgery. Sensory grossly intact to light touch, grimaces to pain to all extremities Assessment: [][]76 yom POD#12 multilevel laminectomies for holospinal epidural abscess Plan: [] Monitor VS, Neurochecks. Monitor wound. Monitor labs. Wound change q 2 days. Keep sutures for 6 weeks. PT/OT when able to participate. Abx per ID TEDS and SCDs. Appreciate ICU, IM, Orthopedic care. Armond Melendrez MD
[2017-05-05] MEDS ORDERED: Ziprasidone IM INJ* 20 MG/ML VIAL IM ONE (22:00)
[2017-05-06] MEDS: ceFAZolin 2 GM/20 ML SYRINGE IVPB Q8H IVPB SCH ×6 (01:25→18:34)
[2017-05-06] MEDS: Acetaminophen ADULT LIQ* 650 MG/20.3 ML UDC NG TUBE PRN (05:11)
[2017-05-06] MEDS: Heparin VIAL(*) 5000 UNITS/ML VIAL (FIVE THOUSAND) SUBCUT SCH ×3 (05:11→22:37)
[2017-05-06] MEDS: fentaNYL* 50 MCG/ML 2 ML VIAL (100 MCG VIAL) IV SLOW PU PRN ×3 (05:21→21:36)
[2017-05-06 05:24] LABS: Hematocrit 19 % (42-52); Hemoglobin 6.3 g/dl (14.0-18.0); Mean Corpuscular HGB Conc 34 g/dl (31-36); Mean Corpuscular Hemoglobin 32 pg (27-31); Mean Corpuscular Volume 94 fL (80-94); Mean Platelet Volume 8 um3 (7.4-10.4); Platelet Count 247 10^3/ul (150-450); Red Blood Count 1.96 10^6/ul (4.0-5.4); Red Cell Distribution Width 15 % (10.5-15); White Blood Count 10.3 10^3/ul (3.5-10.8)
[2017-05-06 05:30] LABS: EGFR Non-African American 59.2 (>60)
[2017-05-06] MEDS ORDERED: Magnesium Sulfate 2 GM IV* 2 GM/50 ML BAG IVPB ONE (09:37)
--- NOTE | 2017-05-06 10:19 | PN ---
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 He cannot give ROS. No diarrhea or rash per RN. Objective: Vital Signs Temp 37.7 C 05/06/17 08:00 Pulse 64 05/06/17 08:00 Resp 19 05/06/17 08:00 BP 134/52 05/06/17 08:00 Pulse Ox 96 05/06/17 08:00 Intake & Output 05/05/17 05/06/17 05/06/17 18:59 06:59 18:59 Intake Total 272 1321 Output Total 775 1000 Balance -503 321 Intake: IV Fluids 52 252 NS (0.9%) 52 252 IVPB 220 20 ABX - CEFAZOLIN 20 KCL 10meq 200 NS (0.9%) 20 Tube Feeding 649 Tube Feeding Flush Amount 400 Output: Hackett 775 1000 Other: Date of Last Bowel 05/05/17 Movement # Bowel Movements 1 1 Estimated Stool Amount Small Medium Gen:sleeping, opens eyes to voice Neuro: withdraws feet to pain, answers some questions HEENT:PERRL, MMD Heart:RRR no murmur Lungs:coarse anterior BS Abd:+ BS NTND soft Skin: no rash MSK: L knee wrapped; no right knee effusion; R shoulder dressed Assessment: 1. MSSA bacteremia, cleared, due to below infections. TTE 04/22 no vegetation or regurgitant valve lesion, no peripheral stigmta of IE, will be on long course IV antibiotics so does need MIRLANDE at this point 2. encephalopathy, present on admission, improving 3. MSSA epidural abscess s/p I&D 4. 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 MSSA septic left shoulder s/p I&D 5. presence bilateral hip arthroplasties; were minimally symptomatic on initial exam 6. anemia Plan: 1. 2 gm IV Q8hrs day 16 of IV antibiotics; minimum weekly cbc, cmp, crp
--- NOTE | 2017-05-06 11:19 | PN ---
Progress Note - Progress Note Date of Service: 05/06/17 Note: CRITICAL CARE MEDICINE Date: 05/06/17 Time: 1035 SUBJECTIVE: Patient seen and examined. PHYSICAL EXAM: Vital Signs: Reviewed. Neurologic: awake. more alert and better to understand. HEENT: pupils equal and reactive. Sclera anicteric. Trachea midline. awake snoring/obstruction is much better. Cardiovascular: distant, S1 S2 Respiratory: coarse bl. better cough. Abdomen: Soft, obese, nt. Extremities: Warm. dressings in place. Access: picc LABS: Reviewed. IMAGING: Reviewed. MEDICATIONS: Reviewed. ASSESSMENT: 76 M MSSA large expansive epidural abscess Left knee mssa septic arthropathy Right shoulder septic arthropathy Post op resp failure Acute delirium - quiet - better post geodon last pm MARE Malnutrition mod degree Deconditioning Aspiration PLAN: Neurologic: slowly improving delirium and ct neg. nsgy following post epidural needs. pt. Cardiovascular: perfusing. fluid stable. Respiratory: on RA. better airway control. has had long observation in icu and time to push forward. Gastrointestinal: ngt needs replaced for tf, but hopefully can just utilize for long weekend and be able to advance swallow come next week and avoid peg, but if not then peg needs to be evaluated. Renal/Metabolic: stable. Infectious Disease: ancef per id. Hematology: received blood. f/u low end consumption and limit labs. subq heparin Endocrine: stable Musculoskeletal: Deconditioning ongoing. pt/ot. oob. ortho following. Psych/Social: will look to update family. time to push him forward. Supportive and preventative care as ordered. SUP: H2 VTE prophylaxis: heparin Hackett catheter out soon. Disposition: to surgical Code Status: Full Critical Care Time: 25min Placido Dyson DO
[2017-05-06] MEDS: CMCS: Nebivolol TAB (NF) 2.5 MG TAB PO SCH (11:58)
[2017-05-06] MEDS: Allopurinol TAB* 100 MG PO SCH (11:59)
[2017-05-06] MEDS: Thiamine TAB* 100 MG TAB PO SCH (12:00)
[2017-05-06] MEDS: Multivitamins ADULT w/MIN LIQ* 15 ML UDC PO SCH (12:00)
[2017-05-06] MEDS: Potassium Chloride LIQUID* 20 MEQ PACKET PO SCH ×2 (12:00→22:37)
--- NOTE | 2017-05-06 13:02 | PN ---
Progress Note - Progress Note Date of Service: 05/06/17 Note: CRITICAL CARE MEDICINE TRANSFER SUMMARY ADMISSION DATE: 04/21/2017 ICU ADMISSION DATE: 04/22/2017 ICU DISCHARGE DATE: 05/06/2017 PRIMARY CARE PROVIDER: Manuel Rao. REFERRING PHYSICIAN: Nathan Mccarthy. NEUROSCURGEON: Gerardo Melendrez. ORTHOPEDIC: Kirk Galan. DIAGNOSIS: MSSA extensive epidural abscess to OR 04/22/17 with multilevel skip laminectomies Left C6-7, T2, T3, T5, T6, T8, T9, T10, T12, L3, L5 Post op resp failure Left knee mssa septic arthropathy - s/p OR I&D 04/23/17 Post op resp failure, also associated with acute delirium - extutubated 04/24/17 Right shoulder septic arthropathy - s/p OR 04/26/17 Post op resp failure from OR - extubated 04/29/17 Acute delirium - slowly improving MARE - improved Malnutrition mod degree - with ngt; getting closer to tolerating puree diet but taking time Deconditioning - PT/OT Aspiration precautions Anemia of acute inflammation with need for transfusions. MEDICATIONS AT TRANSFER: Acetaminophen (Tylenol Adult Liq*) 650 mg NG TUBE Q4H PRN PRN Reason: FEVER/PAIN Last Admin: 05/06/17 05:11 Dose: 650 mg Allopurinol (Zyloprim Tab*) 100 mg PO QAM [facility] Last Admin: 05/06/17 11:59 Dose: 100 mg Atorvastatin Calcium (Lipitor*) 20 mg NG TUBE 1700 MIKE Last Admin: 05/05/17 18:09 Dose: 20 mg Fentanyl Citrate (Fentanyl*) 25 mcg IV SLOW PU Q2H PRN PRN Reason: PAIN Last Admin: 05/06/17 05:21 Dose: 25 mcg Heparin Sodium (Porcine) (Heparin Vial(*)) 5,000 units SUBCUT Q8HR [facility] Last Admin: 05/06/17 05:11 Dose: 5,000 units Heparin Sodium (Porcine) (Heparin Flush Picc/Ml/Cvc(*)) 0 ml FLUSH 0600,1800 MIKE PRN Reason: Protocol Last Admin: 05/06/17 05:11 Dose: 1 ml Cefazolin Sodium 2 gm/ Sterile (Water) 20 mls @ 60 mls/hr IVPB Q8H [facility] Last Admin: 05/06/17 10:32 Dose: 60 mls/hr Multivitamins (Theragran W/Minerals Liq*) 15 ml PO DAILY [facility] Last Admin: 05/06/17 12:00 Dose: 15 ml Nebivolol (Bystolic Tab (Nf)) 10 mg PO QAM [facility] Last Admin: 05/06/17 11:58 Dose: 10 mg Ondansetron HCl (Zofran Inj*) 4 mg IV Q6H PRN PRN Reason: NAUSEA/VOMITING Potassium Chloride (Klor-Con Liquid*) 20 meq PO BID [facility] Last Admin: 05/06/17 12:00 Dose: 20 meq Potassium Chloride (Klor-Con Liquid*) 40 meq G TUBE ONCE ONE Stop: 05/07/17 12:01 Thiamine HCl (Vitamin B-1 Tab*) 100 mg PO DAILY [facility] Last Admin: 05/06/17 12:00 Dose: 100 mg ALLERGIES: amoxicillin Allergy (Intermediate, Verified 04/21/17 04:54) Rash celecoxib [From Celebrex] Allergy (Intermediate, Verified 04/21/17 04:54) Rash latex Allergy (Intermediate, Verified 04/21/17 04:54) Rash HOSPITAL COURSE: (as per diagnosis above) Admitted with declining overall status and body pains, including back, right shoulder and left knee all found with mssa sepsis. Extensive OR needs. Delirium. Difficulty thriving due to metabolic demands and overall general weakness needing recovery phase. Treated with Oxacillin and switch last two days to ancef with extended course anticipated (day 16). Has picc. Has been on RA for several days. Intermittent delirium but mainly avoiding sedatives. Pulled out ngt multiple times but resumed now with TF and swallow follow up as hopefully can return to po soon and advance his care needs from there. PT/OT needs. Wounds to be followed as well. Push care forward. DISPOSITION: Surgical floor. DIET: NPO, swallow follow up. ngt with jevity 1.2 at 60ml/hr. ACTIVITY: OOB with assist CODE STATUS: FULL. SPECIAL INSTRUCTIONS: follow up potential peg needs. NSGY and Ortho following wounds. FOLLOW UP: with treating medical service Placido Dyson DO
--- NOTE | 2017-05-06 13:32 | RAD ---
INDICATION: Status post NG tube placement. COMPARISON: Comparison is made with a prior chest x-ray study from May 05, 2017. TECHNIQUE: A portable view of the chest was obtained. FINDINGS: The heart is within normal limits in size. The lungs are underinflated and grossly clear. There is a nasogastric tube present. The catheter extends into the abdomen. The tip of the catheter projects the right of the midline within the region of the antrum of the stomach or duodenal bulb. There is a PICC present entering on the left side. The catheter tip projects over the right atrium. IMPRESSION: STATUS POST NASOGASTRIC TUBE PLACEMENT, NO EVIDENCE FOR ACUTE FINDING.
--- NOTE | 2017-05-06 14:52 | PN ---
Progress Note - Progress Note Date of Service: 05/06/17 SOAP: Subjective: Mr. Bonilla is seen sitting in chair. He is able to speak in congruent sentences and tell me that he is moving out of the ICU today. He is not in pain currently. He is excited to see his grandchildren on the floor. Objective: Vital Signs Temp 100.6 F 05/06/17 11:00 Pulse 65 05/06/17 14:01 Resp 20 05/06/17 14:01 BP 149/77 05/06/17 14:01 Pulse Ox 92 05/06/17 14:01 Intake & Output 05/05/17 05/06/17 05/06/17 18:59 06:59 18:59 Intake Total 272 1321 936 Output Total 775 1000 475 Balance -503 321 461 Weight 206 lb 5.643 oz Intake: IV Fluids 52 252 523 NS (0.9%) 52 252 523 IVPB 220 20 ABX - CEFAZOLIN 20 KCL 10meq 200 NS (0.9%) 20 Tube Feeding 649 106 Tube Feeding Flush Amount 400 Packed Cells 307 Output: Hackett 775 1000 475 Other: Date of Last Bowel 05/05/17 Movement # Bowel Movements 1 1 Estimated Stool Amount Small Medium Laboratory Results - last 24 hr 05/05/17 05/06/17 05/06/17 14:10 05:05 05:05 WBC 10.3 RBC 1.96 L Hgb 6.3 L* Hct 19 L MCV 94 MCH 32 H MCHC 34 RDW 15 Plt Count 247 MPV 8 Sodium 142 Potassium 3.4 L 3.3 L Chloride 106 Carbon Dioxide 31 Anion Gap 5 BUN 24 Creatinine 1.20 H Est GFR ( Amer) 76.1 Est GFR (Non-Af Amer) 59.2 BUN/Creatinine Ratio 20.0 Glucose 142 H Calcium 8.0 L Phosphorus 4.3 Magnesium 1.7 L Ammonia Blood Type Antibody Screen Crossmatch 05/06/17 05/06/17 05:05 05:05 WBC RBC Hgb Hct MCV MCH MCHC RDW Plt Count MPV Sodium Potassium Chloride Carbon Dioxide Anion Gap BUN Creatinine Est GFR ( Amer) Est GFR (Non-Af Amer) BUN/Creatinine Ratio Glucose Calcium Phosphorus Magnesium Ammonia 34 Blood Type O Positive Antibody Screen Negative Crossmatch See Detail General: Patient in NAD, sitting comfortably in a chair, mitts on bilateral hands. He is aware he is in hospital. LLE: Dressing C/D/I. Swelling but no significant erythema distal to dressing. There is no swelling or erythema proximal to dressing. Passively able to bend knee to 45 degrees flexion with some pain. He is able to PF/DF at ankles, E/I at foot, wiggle toes. DP pulse palpable. Sensation grossly intact. RUE: Dressing at shoulder C/D/I. Swelling without significant erythema distal to shoulder. Passively able to bend shoulder to 30 degrees, pain with external rotation, no pain with internal rotation. 2+ radial pulse. Able to bend wrist. Sensation grossly intact distally. Assessment: POD 13 I&D open left knee, liner exchange. POD 10 I&D arthroscopic right shoulder Plan: 1. Possibly transfer to surgical floor today from ICU. 2. Continue ancef per ID - 2 gm IV Q8H. 3. DVT prophylaxis heprin. 4. Dressing changes tomorrow.
[2017-05-06] MEDS: Atorvastatin* 20 MG TAB NG TUBE SCH (17:04)
--- NOTE | 2017-05-06 22:02 | PN ---
Progress Note - Progress Note Date of Service: 05/06/17 SOAP: Subjective: []Patient seen earlier today. No events ON. In regular floor. . On TF. On Abx IV. Objective: []VSS Wound s,c,d AA, Ox1-2 , RADHA, Face symmetric, Follows commands. Nichole consistently, good hand circular stuffer bilaterally, bilateral foot PF/DF toes F/E to command. Lt knee, Rt Shoulder sp surgery. Sensory grossly intact to light touch, grimaces to pain to all extremities Assessment: []76 yom POD#13 multilevel laminectomies for holospinal epidural abscess Plan: []Monitor VS, Neurochecks. Monitor wound. Monitor labs. Wound change q 2 days. Keep sutures for 6 weeks. PT/OT when able to participate. Abx per ID Appreciate ID, IM, Orthopedic care. Armond Melendrez MD
[2017-05-07] MEDS: fentaNYL* 50 MCG/ML 2 ML VIAL (100 MCG VIAL) IV SLOW PU PRN ×4 (01:40→11:29)
[2017-05-07] MEDS: ceFAZolin 2 GM/20 ML SYRINGE IVPB Q8H IVPB SCH ×6 (01:41→17:15)
[2017-05-07] MEDS: Heparin VIAL(*) 5000 UNITS/ML VIAL (FIVE THOUSAND) SUBCUT SCH ×3 (05:40→21:52)
[2017-05-07 06:13] LABS: Hematocrit 21 % (42-52); Hemoglobin 7.1 g/dl (14.0-18.0); Mean Corpuscular HGB Conc 34 g/dl (31-36); Mean Corpuscular Hemoglobin 31 pg (27-31); Mean Corpuscular Volume 92 fL (80-94); Mean Platelet Volume 8 um3 (7.4-10.4); Platelet Count 234 10^3/ul (150-450); Red Blood Count 2.25 10^6/ul (4.0-5.4); Red Cell Distribution Width 16 % (10.5-15); White Blood Count 8.1 10^3/ul (3.5-10.8)
[2017-05-07 06:28] LABS: EGFR Non-African American 62.2 (>60)
[2017-05-07] MEDS ORDERED: Alteplase (CATHFLO)* 2 MG VIAL IV ONE (07:00)
[2017-05-07] MEDS: CMCS: Nebivolol TAB (NF) 2.5 MG TAB PO SCH (08:52)
[2017-05-07] MEDS: Potassium Chloride LIQUID* 20 MEQ PACKET PO SCH ×2 (08:52→20:16)
[2017-05-07] MEDS: Allopurinol TAB* 100 MG PO SCH (08:53)
[2017-05-07] MEDS: Thiamine TAB* 100 MG TAB PO SCH (08:53)
[2017-05-07] MEDS: Multivitamins ADULT w/MIN LIQ* 15 ML UDC PO SCH (08:53)
--- NOTE | 2017-05-07 09:01 | PN ---
Progress Note - Progress Note Date of Service: 05/07/17 SOAP: Subjective: 76 y/o male with knee, shoulder, epidural abscesses. Patient transferred to floor last night. Patient alert, answers questions with garbled speech at times, other times normal. + pain "all over". VSS, afebrile overnight, Tmax 100.6. Objective: General- Well appearing, NAD, AO resting in bed comfortably, NG in place. MSK- LLE- PT 2+, negative homans sign dressing changed, incision d/c/i, shadia in place. PROM 0-30, pain after 30 Shoulder- dressing changed, incision d/c/i, PROM ff- 40, abd 30 with pain at end. + edema non-pitting in hand, rad 2+. Vital Signs Temp 99.1 F 05/07/17 07:51 Pulse 66 05/07/17 07:51 Resp 20 05/07/17 09:43 BP 146/63 05/07/17 07:51 Pulse Ox 96 05/07/17 07:51 Intake & Output 05/06/17 05/07/17 05/07/17 18:59 06:59 18:59 Intake Total 936 0 Output Total 475 710 0 Balance 461 -710 0 Weight 93.6 kg Intake: IV Fluids 523 NS (0.9%) 523 Oral 0 Tube Feeding 106 Packed Cells 307 Output: Hackett 475 710 0 Other: Date of Last Bowel 05/07/17 05/07/17 Movement # Bowel Movements 1 1 1 Estimated Stool Amount Medium Small Medium Assessment: Stable S/P: POD 14 I&D open left knee, liner exchange. POD 11 I&D arthroscopic right shoulder Plan: - DVT prophylaxis- heparin, H&H stable, continue - Continue PT/ OT - H&H - Transfused yesterday, appropriate response, continue to monitor - post-op IV ABX - cefazolin per ID - PT/ OT - Continue to monitor CRP (next draw wednesday), WBC (normalized) Active Medications Generic Name Dose Route Start Last Admin Trade Name Freq PRN Reason Stop Dose Admin Acetaminophen 650 mg 04/24/17 08:00 05/06/17 05:11 Tylenol Adult Liq* NG TUBE 650 mg Q4H PRN Administration FEVER/PAIN Allopurinol 100 mg 04/22/17 09:00 05/07/17 08:53 Zyloprim Tab* PO 100 mg QAM MIKE Administration Atorvastatin Calcium 20 mg 05/02/17 17:00 05/06/17 17:04 Lipitor* NG TUBE 20 mg 1700 MIKE Administration Fentanyl Citrate 25 mcg 05/02/17 12:14 05/07/17 08:40 Fentanyl* IV SLOW PU 25 mcg Q2H PRN Administration PAIN Heparin Sodium (Porcine) 5,000 units 04/25/17 22:00 05/07/17 05:40 Heparin Vial(*) SUBCUT 5,000 units Q8HR MIKE Administration Heparin Sodium (Porcine) 0 ml 05/02/17 18:00 05/07/17 05:41 Heparin Flush Picc/Ml/Cvc(*) FLUSH 3 ml 0600,1800 MIKE Administration Protocol Cefazolin Sodium 2 gm/ Sterile 20 mls @ 60 mls/hr 05/04/17 17:00 05/07/17 10: 27 Water IVPB 60 mls/hr Q8H MIKE Administration Multivitamins 15 ml 04/23/17 09:00 05/07/17 08:53 Theragran W/Minerals Liq* PO Not Given DAILY MIKE Nebivolol 10 mg 04/22/17 09:00 05/07/17 08:52 Bystolic Tab (Nf) PO 10 mg QAM MIKE Administration Ondansetron HCl 4 mg 04/22/17 22:01 Zofran Inj* IV Q6H PRN NAUSEA/VOMITING Potassium Chloride 20 meq 04/23/17 09:00 05/07/17 08:52 Klor-Con Liquid* PO 20 meq BID MIKE Administration Potassium Chloride 40 meq 05/07/17 12:00 Klor-Con Liquid* G TUBE 05/07/17 12:01 ONCE ONE Thiamine HCl 100 mg 04/22/17 09:00 05/07/17 08:53 Vitamin B-1 Tab* PO 100 mg DAILY MIKE Administration <Layla Hyde - Last Filed: 05/07/17 11:17> - Progress Note SOAP: Subjective: Patient ate food today. Feeding tubes out. Communicating occasionally with nursing and family, although mostly speaking words without meaning. Per family, patient has leaned head away from right shoulder. He has not been able to articulate pain in any specific body part. Objective: T max 100.6 in last 24+ hours was around noon 05/06/17 NAD R shoulder: - dressing intact - discomfort with FF to 60 degrees - soft tissue swelling RUE from shoulder to hand - No TTP around distal upper arm and elbow and no pain with PROM elbow L knee: - inc c/d/i - PROM 10-50 without significant discomfort Assessment: POD 14 I&D open left knee, liner exchange. POD 11 I&D arthroscopic right shoulder Plan: - There is always possibility that patient may require 2nd I&D of either joint. We use pain, exam, fever, and inflammatory markers to decide. Patient has been aware. - The patient's posture today with head away from right shoulder is remarkable. - I will add on CRP to patient's labs from this morning - I will re-examine the patient tomorrow. Doing an aspiration of either joint might be indicated based on exam and/or CRP, although the CRP is certainly non- specific. - Continue IV abx - PT for ROM shoulder and knee - Knee should be maintained in extension while in bed or chair so that a flexion contracture does not develop. <Doc Galan - Last Filed: 05/07/17 18:26>
--- NOTE | 2017-05-07 11:50 | PN ---
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 He cannot give ROS. No diarrhea or rash per RN. Objective: Vital Signs Temp 37.3 C 05/07/17 07:51 Pulse 66 05/07/17 07:51 Resp 20 05/07/17 11:29 BP 146/63 05/07/17 07:51 Pulse Ox 96 05/07/17 07:51 Intake & Output 05/06/17 05/07/17 05/07/17 18:59 06:59 18:59 Intake Total 936 0 Output Total 475 710 0 Balance 461 -710 0 Weight 206 lb 5.643 oz Intake: IV Fluids 523 NS (0.9%) 523 Oral 0 Tube Feeding 106 Packed Cells 307 Output: Hackett 475 710 0 Other: Date of Last Bowel 05/07/17 05/07/17 Movement # Bowel Movements 1 1 1 Estimated Stool Amount Medium Small Medium Gen:awake, interacts Neuro: withdraws feet to pain, answers some questions HEENT:PERRL, MMD Heart:RRR no murmur Lungs:coarse anterior BS Abd:+ BS NTND soft Skin: no rash MSK: L knee wrapped no effusion, incision intact, no erythema Laboratory Results - last 24 hr 05/07/17 05/07/17 05:45 05:45 WBC 8.1 RBC 2.25 L Hgb 7.1 L Hct 21 L MCV 92 MCH 31 MCHC 34 RDW 16 H Plt Count 234 MPV 8 Sodium 141 Potassium 2.9 L Chloride 106 Carbon Dioxide 29 Anion Gap 6 BUN 25 H Creatinine 1.15 Est GFR ( Amer) 79.9 Est GFR (Non-Af Amer) 62.2 BUN/Creatinine Ratio 21.7 H Glucose 130 H Calcium 8.1 L Assessment: 1. MSSA bacteremia, cleared, due to below infections. TTE 04/22 no vegetation or regurgitant valve lesion, no peripheral stigmta of IE, will be on long course IV antibiotics so does need MIRLANDE at this point 2. encephalopathy, present on admission, improving 3. MSSA epidural abscess s/p I&D 4. 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 MSSA septic left shoulder s/p I&D 5. presence bilateral hip arthroplasties; were minimally symptomatic on initial exam 6. anemia Plan: 1. 2 gm IV Q8hrs day 17 of IV antibiotics; minimum weekly cbc, cmp, crp; will add rifampin 600 mg IV daily for prosthetic joint infection
[2017-05-07] MEDS ORDERED: Potassium Chloride LIQUID* 20 MEQ PACKET G TUBE ONE (12:00)
--- NOTE | 2017-05-07 15:48 | PN ---
Subjective Date of Service: 05/07/17 Interval History: C/O pain shoulder and knee, c/o to staff about back pain. Objective Active Medications: Allopurinol (Zyloprim Tab*) 100 mg PO QAM [facility] Last Admin: 05/07/17 08:53 Dose: 100 mg Atorvastatin Calcium (Lipitor*) 20 mg PO 1700 [facility] Heparin Sodium (Porcine) (Heparin Vial(*)) 5,000 units SUBCUT Q8HR [facility] Last Admin: 05/07/17 14:46 Dose: 5,000 units Heparin Sodium (Porcine) (Heparin Flush Picc/Ml/Cvc(*)) 0 ml FLUSH 0600,1800 [facility] PRN Reason: Protocol Last Admin: 05/07/17 05:41 Dose: 3 ml Cefazolin Sodium 2 gm/ Sterile (Water) 20 mls @ 60 mls/hr IVPB Q8H [facility] Last Admin: 05/07/17 10:27 Dose: 60 mls/hr Rifampin 600 mg/ Sodium (Chloride) 260 mls @ 130 mls/hr IVPB Q24HR [facility] Multivitamins (Theragran W/Minerals Liq*) 15 ml PO DAILY [facility] Last Admin: 05/07/17 08:53 Dose: Not Given Nebivolol (Bystolic Tab (Nf)) 10 mg PO QAM [facility] Last Admin: 05/07/17 08:52 Dose: 10 mg Ondansetron HCl (Zofran Inj*) 4 mg IV Q6H PRN PRN Reason: NAUSEA/VOMITING Oxycodone HCl (Roxycodone Tab*) 5 mg PO Q4H PRN PRN Reason: PAIN Potassium Chloride (Klor-Con Liquid*) 20 meq PO BID [facility] Last Admin: 05/07/17 08:52 Dose: 20 meq Thiamine HCl (Vitamin B-1 Tab*) 100 mg PO DAILY [facility] Last Admin: 05/07/17 08:53 Dose: 100 mg Vital Signs - 8 hr 05/07/17 05/07/17 05/07/17 07:51 08:00 08:40 Temperature 99.1 F Pulse Rate 66 Respiratory 18 20 22 Rate Blood Pressure 146/63 (mmHg) O2 Sat by Pulse 96 Oximetry 05/07/17 05/07/17 05/07/17 09:43 11:24 11:29 Temperature Pulse Rate 59 Respiratory 20 16 20 Rate Blood Pressure 139/58 (mmHg) O2 Sat by Pulse 99 Oximetry 05/07/17 05/07/17 12:45 15:34 Temperature 98.6 F Pulse Rate 60 Respiratory 20 22 Rate Blood Pressure 89/57 (mmHg) O2 Sat by Pulse 100 Oximetry Oxygen Devices in Use Now: None Appearance: Lethargic, in recliner chair. Looks comfortable. Eyes: No Scleral Icterus Neck: NL Appearance and Movements; NL JVP, No Thyroid Enlargement, Masses Respiratory: Symmetrical Chest Expansion and Respiratory Effort, Clear to Auscultation, Clear to Percussion Cardiovascular: NL Sounds; No Murmurs; No JVD, RRR, No Edema, - Extremities: No Edema, No Clubbing, Cyanosis, - Skin: No Rash or Ulcers, No Nodules or Sclerosis, - Neurological: NL Sensation - Weak. No tremor. Speech mumbled. Result Diagrams: 05/07/17 05:45 05/07/17 05:45 Microbiology and Other Data: Microbiology 04/22/17 06:20 Nasal Screen MRSA (PCR)(KEEGAN) - Final Nasal Mrsa Not Detected Assess/Plan/Problems-Billing Assessment: 76 yo M with h/o HTN, multiple joint replacements, GI bleed (and partial colon resection due to bleed) - Patient Problems (1) Staphylococcus aureus bacteremia Current Visit: Yes Status: Acute Code(s): R78.81 - BACTEREMIA SNOMED Code( s): 788685752 Comment: MSSA with L knee and R shoulder septic arthropathy. Continue cefazolin and rifampin. PO oxycodoen PRN pain. (2) HTN (hypertension) Current Visit: Yes Status: Acute Code(s): I10 - ESSENTIAL (PRIMARY) HYPERTENSION SNOMED Code(s): 35271041 Comment: controlled, cont Bystolic, hold Norvasc Status and Disposition: inpatient
[2017-05-07] MEDS: Atorvastatin* 20 MG TAB PO SCH (17:16)
[2017-05-07] MEDS: oxyCODONE TAB* 5 MG TAB PO PRN (22:29)
[2017-05-08] MEDS: ceFAZolin 2 GM/20 ML SYRINGE IVPB Q8H IVPB SCH ×6 (00:25→16:56)
[2017-05-08] MEDS: Heparin VIAL(*) 5000 UNITS/ML VIAL (FIVE THOUSAND) SUBCUT SCH ×3 (05:58→21:34)
[2017-05-08] MEDS: NS 0.9% IVPB SCH (08:15)
[2017-05-08] MEDS: OXACILLIN IVPB SCH (08:15)
--- NOTE | 2017-05-08 10:08 | PN ---
Progress Note - Progress Note Date of Service: 05/08/17 SOAP: Subjective: Patient can't communicate well so improvement difficult to entirely gauge. Tolerated PO yesterday. Can communicate with an occasional sensical word or gesture with family and staff, but otherwise difficult to understand patient. Objective: T max 100.1 in last 24 hours. Patient lying supine with head of bed inclined appropriately. RUE: - shoulder inc c/d/i - pain with PROM more than 30 degrees forward flexion, although I can bring the patient to 90 degrees. External rotation to 20 with arm at side. With shoulder abducted, internal rotation to 80. Crepitus palpable with PROM shoulder. - RUE diffuse mild soft tissue swelling shoulder to hand. Unchanged from yesterday except slightly less edema hand. - No pain with PROM elbow, wrist - No clear area of fluctuance, fluid collection LLE: - knee inc c/d/i - Effusion is only trace-mild - PROM 0-30. Patient was resisting actively by flexing the knee more, despite my encouragement for him to stop resisting Selected Entries 05/07/17 05/07/17 05/07/17 15:34 19:34 23:37 Temperature 98.6 F 99.7 F 99.7 F Pulse Rate Respiratory Rate Blood Pressure (mmHg) O2 Sat by Pulse Oximetry 05/08/17 05/08/17 03:41 07:38 Temperature 100.1 F 98.5 F Pulse Rate 72 Respiratory 18 Rate Blood Pressure 144/60 (mmHg) O2 Sat by Pulse 98 Oximetry Laboratory Tests 05/03/17 05/03/17 05/05/17 05:05 05:05 05:20 WBC 12.7 H C-Reactive Protein 71.26 H 73.33 H 05/05/17 05/06/17 05/07/17 05:20 05:05 05:45 WBC 11.1 H 10.3 C-Reactive Protein 93.61 H 05/07/17 05:45 WBC 8.1 C-Reactive Protein Assessment: POD 15 open I&D, liner exchange L TKA POD 12 arthroscopic I&D R shoulder Plan: - Continue IV abx - I will request a diff be added on to yesterday's WBC count. We can follow the neutrophil % as well as CRP (less specific) to determine efficacy of our treatment given patient poor ability to articulate comfort and limited exam. WBC is normal and only low grade temp once briefly in last 24 hours. - PT for R shoulder, L knee - Patient has severe loss of cartilage, osteoarthritis by the time of my consult and surgical intervention. Some of the right shoulder pain and limitation of ROM may be secondary to arthritic changes. - I am considering aspirating patient's shoulder and knee to assess for any persistence of luis carlos infection bolus. Given patient's immunocompromise, 2nd I& Ds could possibly be required. I have discussed with family from the start. Hopefully, there won't be a need to again intubate this patient.
[2017-05-08] MEDS: Allopurinol TAB* 100 MG PO SCH (10:19)
[2017-05-08] MEDS: Multivitamins ADULT w/MIN LIQ* 15 ML UDC PO SCH (10:20)
[2017-05-08] MEDS: CMCS: Nebivolol TAB (NF) 2.5 MG TAB PO SCH (10:20)
[2017-05-08] MEDS: Potassium Chloride LIQUID* 20 MEQ PACKET PO SCH ×3 (10:20→21:33)
[2017-05-08] MEDS: Thiamine TAB* 100 MG TAB PO SCH (10:22)
[2017-05-08] MEDS ORDERED: NS 0.9% 250 ML* 250 ML ONE (10:40)
[2017-05-08] MEDS: RiFAMPin IV* 600 MG in NS 0.9% 250 ML* 250 ML IVPB SCH (11:19)
--- NOTE | 2017-05-08 13:38 | PN ---
Subjective Date of Service: 05/08/17 Interval History: He denies pain. The staff states he had some oxycodone overnight for pain. Appetite fair. Objective Active Medications: Allopurinol (Zyloprim Tab*) 100 mg PO QAM [facility] Last Admin: 05/08/17 10:19 Dose: 100 mg Atorvastatin Calcium (Lipitor*) 20 mg PO 1700 [facility] Last Admin: 05/07/17 17:16 Dose: 20 mg Heparin Sodium (Porcine) (Heparin Vial(*)) 5,000 units SUBCUT Q8HR [facility] Last Admin: 05/08/17 05:58 Dose: 5,000 units Heparin Sodium (Porcine) (Heparin Flush Picc/Ml/Cvc(*)) 0 ml FLUSH 0600,1800 [facility] PRN Reason: Protocol Last Admin: 05/08/17 05:58 Dose: 1 ml Cefazolin Sodium 2 gm/ Sterile (Water) 20 mls @ 60 mls/hr IVPB Q8H [facility] Last Admin: 05/08/17 10:21 Dose: 60 mls/hr Rifampin 600 mg/ Sodium (Chloride) 260 mls @ 130 mls/hr IVPB Q24HR [facility] Last Admin: 05/08/17 11:19 Dose: 130 mls/hr Multivitamins (Theragran W/Minerals Liq*) 15 ml PO DAILY [facility] Last Admin: 05/08/17 10:20 Dose: 15 ml Nebivolol (Bystolic Tab (Nf)) 10 mg PO QAM [facility] Last Admin: 05/08/17 10:20 Dose: 10 mg Ondansetron HCl (Zofran Inj*) 4 mg IV Q6H PRN PRN Reason: NAUSEA/VOMITING Oxycodone HCl (Roxycodone Tab*) 5 mg PO Q4H PRN PRN Reason: PAIN Last Admin: 05/07/17 22:29 Dose: 5 mg Potassium Chloride (Klor-Con Liquid*) 20 meq PO TID [facility] Thiamine HCl (Vitamin B-1 Tab*) 100 mg PO DAILY [facility] Last Admin: 05/08/17 10:22 Dose: 100 mg Vital Signs - 8 hr 05/08/17 05/08/17 07:38 08:00 Temperature 98.5 F Pulse Rate 72 Respiratory 18 18 Rate Blood Pressure 144/60 (mmHg) O2 Sat by Pulse 98 Oximetry Oxygen Devices in Use Now: None Appearance: Alert but passive, partly up and partly on his L side in bed. Nuetral affect, looks comfortable. Eyes: No Scleral Icterus Respiratory: Symmetrical Chest Expansion and Respiratory Effort, Clear to Auscultation, Clear to Percussion Cardiovascular: NL Sounds; No Murmurs; No JVD, RRR, No Edema, - Extremities: No Clubbing, Cyanosis, - - 1+ edema R hand, likely from lack of use Skin: No Rash or Ulcers, No Nodules or Sclerosis, - Neurological: Alert and Oriented x 3, NL Sensation - Dysarthic speech, sl better with denture in place. No tremor. He avoids using his R arm. Result Diagrams: 05/07/17 05:45 05/07/17 05:45 Microbiology and Other Data: Microbiology 04/22/17 06:20 Nasal Screen MRSA (PCR)(KEEGAN) - Final Nasal Mrsa Not Detected Assess/Plan/Problems-Billing Assessment: 76 yo M with h/o HTN, multiple joint replacements, GI bleed (and partial colon resection due to bleed) - Patient Problems (1) Staphylococcus aureus bacteremia Current Visit: Yes Status: Acute Code(s): R78.81 - BACTEREMIA SNOMED Code( s): 957782354 Comment: MSSA with L knee and R shoulder septic arthropathy. Continue cefazolin and rifampin. PO oxycodone PRN pain. (2) HTN (hypertension) Current Visit: Yes Status: Acute Code(s): I10 - ESSENTIAL (PRIMARY) HYPERTENSION SNOMED Code(s): 58092311 Comment: controlled, cont Bystolic, hold Norvasc (3) Debility Current Visit: Yes Status: Acute Code(s): R53.81 - OTHER MALAISE SNOMED Code(s): 75886206 Comment: He will need extensive rehab. Status and Disposition: inpatient
[2017-05-08 14:07] LABS: ABS Basophils 0 10^3/ul (0-0.2); ABS Eosinophils 0.3 10^3/ul (0-0.6); ABS Lymphocytes 0.8 10^3/ul (1.0-4.8); ABS Monocytes 0.7 10^3/ul (0-0.8); ABS Neutrophils 6.9 10^3/ul (1.5-7.7); ABS Nucleated RBC 0 10^3/ul; Eosinophil % 3.7 % (0-6); Hematocrit 22 % (42-52); Hemoglobin 7.3 g/dl (14.0-18.0); Lymphocyte % 9.2 % (25-47); Mean Corpuscular HGB Conc 34 g/dl (31-36); Mean Corpuscular Hemoglobin 31 pg (27-31); Mean Corpuscular Volume 92 fL (80-94); Mean Platelet Volume 8 um3 (7.4-10.4); Nucleated Red Blood Cells % 0.1; Platelet Count 267 10^3/ul (150-450); Red Blood Count 2.35 10^6/ul (4.0-5.4); Red Cell Distribution Width 16 % (10.5-15); White Blood Count 8.8 10^3/ul (3.5-10.8)
[2017-05-08] MEDS: Atorvastatin* 20 MG TAB PO SCH (16:57)
[2017-05-09] MEDS: oxyCODONE TAB* 5 MG TAB PO PRN (00:21)
[2017-05-09] MEDS: ceFAZolin 2 GM/20 ML SYRINGE IVPB Q8H IVPB SCH ×6 (01:14→16:31)
[2017-05-09] MEDS: Heparin VIAL(*) 5000 UNITS/ML VIAL (FIVE THOUSAND) SUBCUT SCH ×3 (05:36→21:45)
[2017-05-09 06:16] LABS: EGFR Non-African American 74.8 (>60)
[2017-05-09] MEDS: Multivitamins ADULT w/MIN LIQ* 15 ML UDC PO SCH (08:36)
[2017-05-09] MEDS: Allopurinol TAB* 100 MG PO SCH (08:37)
[2017-05-09] MEDS: CMCS: Nebivolol TAB (NF) 2.5 MG TAB PO SCH (08:42)
[2017-05-09] MEDS: Thiamine TAB* 100 MG TAB PO SCH (08:46)
[2017-05-09] MEDS: Potassium Chloride LIQUID* 20 MEQ PACKET PO SCH ×3 (08:46→21:45)
[2017-05-09] MEDS: RiFAMPin IV* 600 MG in NS 0.9% 250 ML* 250 ML IVPB SCH (09:36)
--- NOTE | 2017-05-09 12:48 | PN ---
Subjective Date of Service: 05/09/17 Interval History: KPain control good. No new c/o. He seems to eat well when his family is present. Objective Active Medications: Allopurinol (Zyloprim Tab*) 100 mg PO QAM [facility] Last Admin: 05/09/17 08:37 Dose: 100 mg Atorvastatin Calcium (Lipitor*) 20 mg PO 1700 [facility] Last Admin: 05/08/17 16:57 Dose: 20 mg Heparin Sodium (Porcine) (Heparin Vial(*)) 5,000 units SUBCUT Q8HR [facility] Last Admin: 05/09/17 05:36 Dose: 5,000 units Heparin Sodium (Porcine) (Heparin Flush Picc/Ml/Cvc(*)) 0 ml FLUSH 0600,1800 [facility] PRN Reason: Protocol Last Admin: 05/09/17 05:30 Dose: 3 ml Cefazolin Sodium 2 gm/ Sterile (Water) 20 mls @ 60 mls/hr IVPB Q8H [facility] Last Admin: 05/09/17 08:46 Dose: 60 mls/hr Rifampin 600 mg/ Sodium (Chloride) 260 mls @ 130 mls/hr IVPB Q24HR [facility] Last Admin: 05/09/17 09:36 Dose: 130 mls/hr Multivitamins (Theragran W/Minerals Liq*) 15 ml PO DAILY [facility] Last Admin: 05/09/17 08:36 Dose: 15 ml Nebivolol (Bystolic Tab (Nf)) 10 mg PO QAM [facility] Last Admin: 05/09/17 08:42 Dose: 10 mg Ondansetron HCl (Zofran Inj*) 4 mg IV Q6H PRN PRN Reason: NAUSEA/VOMITING Oxycodone HCl (Roxycodone Tab*) 5 mg PO Q4H PRN PRN Reason: PAIN Last Admin: 05/09/17 00:21 Dose: 5 mg Potassium Chloride (Klor-Con Liquid*) 20 meq PO TID [facility] Last Admin: 05/09/17 08:46 Dose: 20 meq Thiamine HCl (Vitamin B-1 Tab*) 100 mg PO DAILY [facility] Last Admin: 05/09/17 08:46 Dose: 100 mg Vital Signs - 8 hr 05/09/17 05/09/17 05/09/17 05:34 07:35 08:00 Temperature 98.5 F 98.4 F Pulse Rate 66 71 Respiratory 17 20 16 Rate Blood Pressure 146/71 138/49 (mmHg) O2 Sat by Pulse 99 97 Oximetry 05/09/17 11:06 Temperature 98.1 F Pulse Rate 63 Respiratory 18 Rate Blood Pressure 134/66 (mmHg) O2 Sat by Pulse 99 Oximetry Oxygen Devices in Use Now: None Appearance: Alert, in a chair. In good spirits. Looks comfortable. Eyes: No Scleral Icterus Extremities: No Clubbing, Cyanosis, - - 1-2+ edema R hand. 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 Skin: No Rash or Ulcers, No Nodules or Sclerosis Neurological: Alert and Oriented x 3, NL Sensation Result Diagrams: 05/08/17 13:25 05/09/17 05:30 Microbiology and Other Data: Microbiology 04/22/17 06:20 Nasal Screen MRSA (PCR)(KEEGAN) - Final Nasal Mrsa Not Detected Assess/Plan/Problems-Billing Assessment: 76 yo M with h/o HTN, multiple joint replacements, GI bleed (and partial colon resection due to bleed) - Patient Problems (1) Staphylococcus aureus bacteremia Current Visit: Yes Status: Acute Code(s): R78.81 - BACTEREMIA SNOMED Code( s): 198946193 Comment: MSSA with L knee and R shoulder septic arthropathy. Continue cefazolin and rifampin. PO oxycodone PRN pain. Repeat joint fluid aspirations from R shoulder and L knee from 05/08 one growing S. aureus. Await final reports. Discussed with Dr. Galan. Prior L TKA. (2) HTN (hypertension) Current Visit: Yes Status: Acute Code(s): I10 - ESSENTIAL (PRIMARY) HYPERTENSION SNOMED Code(s): 20236227 Comment: controlled, cont Bystolic, hold Norvasc (3) Debility Current Visit: Yes Status: Acute Code(s): R53.81 - OTHER MALAISE SNOMED Code(s): 40603184 Comment: He will need extensive rehab. (4) Hypoalbuminemia Current Visit: Yes Status: Acute Code(s): E88.09 - OTH DISORDERS OF PLASMA- PROTEIN METABOLISM, NEC SNOMED Code(s): 667956637 Comment: Calorie counts ordered. Prealbumin and albumin level soon. Status and Disposition: inpatient
[2017-05-09] MEDS: Ondansetron INJ* 2 MG/ML VIAL IV PRN (16:12)
[2017-05-09] MEDS: Atorvastatin* 20 MG TAB PO SCH (16:28)
--- NOTE | 2017-05-09 20:36 | PN ---
Progress Note - Progress Note Date of Service: 05/09/17 SOAP: Subjective: Patient was eating and interacting better with family today per report of nursing and family. When asked what hurt the most, the patient replied the right elbow, shoulder, and the back. Objective: Patient expressed today a higher volume of comprehensible words, with multiple strung together today. This is an improvement compared with yesterday. LLE: - knee incision c/d/i - knee PROM 5-90 without any clear discomfort. Pain at 90 degrees of flexion - no significant effusion knee RUE: - shoulder incisions c/d/i, no swelling - crepitus with PROM shoulder - PROM shoulder FF 100, ER at side 10, IR with shoulder abducted 90. No pain with FF until 90 degrees. - elbow no pain with PROM 10-120, no TTP - edema right upper extremity, worse in hand today but no TTP hand or wrist Microbiology 05/08/17 19:15 Joint Fluid(Synovial) Skin and Soft Tissue MRSA/MSSA (PCR - Final Mrsa Negative S.aureus Negative 05/08/17 19:15 Body Fluid Gram Stain - Final 05/08/17 19:15 Body Fluid Skin and Soft Tissue MRSA/MSSA (PCR - Final Mrsa Negative S.aureus Positive 05/08/17 19:15 Joint Fluid(Synovial) Gram Stain - Preliminary 05/08/17 19:15 Joint Fluid(Synovial) Body Fluid Culture - Preliminary No Growth Day 1 05/08/17 19:15 Body Fluid Body Fluid Culture - Preliminary No Growth Day 1 Selected Entries 05/08/17 05/09/17 05/09/17 20:49 00:13 05:34 Temperature 98.4 F 98.5 F 98.5 F 05/09/17 05/09/17 05/09/17 07:35 11:06 15:28 Temperature 98.4 F 98.1 F 98.0 F 05/09/17 19:26 Temperature 98.6 F Laboratory Tests 05/06/17 05/07/17 05/07/17 05:05 05:45 05:45 WBC 10.3 8.1 Hct Neut % (Auto) C-Reactive Protein 93.61 H 05/08/17 05/08/17 05/09/17 13:25 13:25 05:30 WBC 8.8 Hct 22 L Neut % (Auto) 78.3 C-Reactive Protein 97.24 H 95.57 H Assessment: POD 16 open I&D left knee, e/o liner POD 13 arthroscopic I&D right shoulder Plan: - Continue PT - Continue IV abx - Discussed GS/cultures with microbiology lab. L knee no growth at day 1 culture. Gram stain showed "possible 1+ GPC" on report. Technologist described 2 possible GPC per HPF. (Cut off for probable prosthetic infection generally quoted is 5 per HPF). R shoulder GS showed 1+ GPC, although no growth at day 1 culture. False negative by culture could be secondary to antibiotics. - In general (& in literature), indications to repeat I&D of a infected joint are not crystal clear. Clinic course (joint pain, fever, inflammatory labs) are used to determine requirement of repeat washouts, which are common. We have been somewhat limited by patient's obtunded and then inarticulate status to determine how symptomatic is right shoulder currently. - Stable high CRP and episodic low-grade temps (although none in last 24 hours ) are concerning for persistence of infection. Aspiration shoulder showed no purulence, but gram stain positive. The downside to repeat intubation & general anesthesia in this frail patient weighed against the possible persistence of right shoulder as an infection nidus and possible improvement via debulking via arthroscopic I&D. - RUE edema likely post-surgical swelling from arthroscopy in a patient who has been mostly bed-bound x 2 weeks. - I told family that I might consider a repeat shoulder arthroscopic I&D early this week, perhaps even tomorrow (Wednesday).
[2017-05-10] MEDS: ceFAZolin 2 GM/20 ML SYRINGE IVPB Q8H IVPB SCH ×6 (00:44→17:46)
[2017-05-10] MEDS: Heparin VIAL(*) 5000 UNITS/ML VIAL (FIVE THOUSAND) SUBCUT SCH ×3 (05:26→21:20)
[2017-05-10] MEDS: Multivitamins ADULT w/MIN LIQ* 15 ML UDC PO SCH (08:34)
[2017-05-10] MEDS: Potassium Chloride LIQUID* 20 MEQ PACKET PO SCH ×3 (08:35→21:15)
[2017-05-10] MEDS: Thiamine TAB* 100 MG TAB PO SCH (08:35)
[2017-05-10] MEDS: Allopurinol TAB* 100 MG PO SCH (08:35)
[2017-05-10] MEDS: oxyCODONE TAB* 5 MG TAB PO PRN (08:35)
[2017-05-10] MEDS: CMCS: Nebivolol TAB (NF) 2.5 MG TAB PO SCH (08:35)
--- NOTE | 2017-05-10 09:17 | PN ---
Progress Note - Progress Note Date of Service: 05/10/17 SOAP: Subjective: 76 y/o male with knee, shoulder, epidural abscesses. Patients mentation decreased from prior exam on Wednesday, responds to questions however non- sensical. C/O pain L knee, R shoulder Objective: General- Resting in bed, falling asleep during questioning. poor historian MSK- L knee- shadia removed without difficulty, steri- strips placed. DENEEN wrap placed PROM 5-30 with pain after 30. neg homans R shoulder- PROM after repeated ROM FF- 100, ABD- 90. Decreased edema R hand, mild, non-pitting. SUtures removed, no edema, erythema. Vital Signs Temp 98.1 F 05/10/17 07:22 Pulse 83 05/10/17 07:22 Resp 16 05/10/17 09:45 BP 158/62 05/10/17 07:22 Pulse Ox 94 05/10/17 07:22 Intake & Output 05/09/17 05/10/17 05/10/17 18:59 06:59 18:59 Intake Total 1087 100 Output Total 350 700 Balance 737 -600 Weight 94.347 kg Intake: IVPB 267 NS (0.9%) 267 Oral 820 100 Output: Hackett 350 700 Assessment: POD 17 open I&D left knee, e/o liner POD 14 arthroscopic I&D right shoulder Plan: - Follow cultures from R shoulder, L knee aspiration--> negative/ pending - CRP- elevated since 05/07, remains stable past 2 days - ABX- Per ID - Discuss with ID, neuro increased CRP, active drainage from spine--> CT entire spine ordered. - WBC stable - Continue PT/ OT with PROM
[2017-05-10] MEDS ORDERED: NS 0.9% 250 ML* 250 ML ONE (10:07)
[2017-05-10] MEDS ORDERED: Iohexol 300* (CONTRAST) 10 ML SDV IV ONE (10:23)
[2017-05-10] MEDS: RiFAMPin IV* 600 MG in NS 0.9% 250 ML* 250 ML IVPB SCH (10:39)
[2017-05-10] MEDS ORDERED: NS 0.45% KCl 20 Meq 1000 ML* 1,000 ML IV SCH ×2 (11:00→18:43)
--- NOTE | 2017-05-10 12:10 | RAD ---
Indication: Febrile, epidural abscess. Contrast: Administered 99.1 ml of OMNIPAQUE 300 mg/ml CT of the cervical spine was obtained in the axial plane. Sagittal and coronal reconstructed images were obtained. The study was performed after IV contrast administration. The vertebral bodies appear normal in height. Body habitus limits examination however no gross epidural enhancing lesions are noted. Degenerative disc disease is present at multiple levels. Spinal canal appears to be intact. IMPRESSION: This soft tissue and spinal canal or limited in evaluation due to body habitus. No obvious epidural enhancing masses are noted. Multilevel degenerative disc disease is noted.
--- NOTE | 2017-05-10 12:10 | RAD ---
Indication: History of epidural abscess post drainage. Persistent fever. Comparison: April 21, 2017 contrast-enhanced MRI of the lumbar sacral spine. Report: Postsurgical change of L2-L3 through L4-L5 decompressive laminectomy new compared with the prior exam. Negative for fracture or spondylolysis at any level. Normal vertebral alignment without spondylolisthesis at any level. Detail of the central spinal canal is limited with routine CT. No definitive epidural abscess visualized. Reference sagittal image 23 and axial image 48 there is a 3.7 cm AP by 1.6 cm transverse by 2.4 cm cephalocaudal loculated denser than water fluid collection within the midline posterior paraspinal musculature centered at the L4 level which may represent postoperative seroma, hematoma, or potentially abscess. Reference axial images 59-77 and extending beyond the caudal margin of the [id number] there is a multilocular denser than water fluid collection within the RIGHT paraspinal soft tissues with involvement of the psoas muscle highly suspicious for abscess. Atherosclerotic plaque of normal diameter abdominal aorta and common iliac arteries. Physiologic distention of the IVC. IMPRESSION: 1. Evidence for RIGHT paraspinal multilocular soft tissue plane abscess involving the psoas muscle. This is not well visualized on the fibular 22,018 exam however in retrospect it appears grossly similar in volume. If clinically warranted and feasible this could be further characterized with a contrast-enhanced CT or MRI exam. 2. 1.6 cm transverse by 2.4 cm cephalocaudal loculated denser than water fluid collection within the midline posterior paraspinal musculature centered at the L4 level which may represent postoperative seroma, hematoma, or potentially abscess. If clinically warranted and feasible this could be further characterized with a contrast-enhanced CT or MRI exam.
--- NOTE | 2017-05-10 12:24 | RAD ---
Indication: History of long segment epidural abscess post surgery. Comparison: April 21, 2017 MRI. Technique: Noncontrast CT thoracic spine. Report: Post multilevel LEFT and RIGHT unilateral laminotomies from T1 through T12. Negative for fracture. Diffuse degenerative spondylosis. Ankylosis at the T6-T7 disc level as on the prior exam. Assessment of the central canal is limited with routine CT. No gross epidural collection or compression of the thecal sac evident. 3.6 cm AP by 2.5 cm transverse by 10 cm cephalocaudal loculated denser than water fluid collection surrounds the spinous processes from the T1 through the T3 level. The differential includes postoperative seroma, hematoma, or abscess. Small bilateral dependent pleural effusions with proportional atelectasis. IMPRESSION: 1. Post multilevel laminotomy. Assessment of the central canal is limited with routine CT. No gross epidural collection or compression of the thecal sac evident. 2. 3.6 cm AP by 2.5 cm transverse by 10 cm cephalocaudal loculated denser than water fluid collection surrounds the spinous processes from the T1 through the T3 level. The differential includes postoperative seroma, hematoma, or abscess. Correlate with clinical assessment and consider contrast-enhanced CT or MRI for further evaluation if deemed appropriate 3. Small bilateral dependent pleural effusions with proportional atelectasis.
--- NOTE | 2017-05-10 13:23 | PN ---
Subjective Date of Service: 05/10/17 Interval History: Patient doesn't answer most questions directly. Not clear how good his pain control is. He doesn't c/o pain and looks comfortable. Objective Active Medications: Allopurinol (Zyloprim Tab*) 100 mg PO QAM COUNTS INCLUDE 234 BEDS AT THE [facility] Last Admin: 05/10/17 08:35 Dose: 100 mg Atorvastatin Calcium (Lipitor*) 20 mg PO 1700 COUNTS INCLUDE 234 BEDS AT THE [facility] Last Admin: 05/09/17 16:28 Dose: 20 mg Heparin Sodium (Porcine) (Heparin Vial(*)) 5,000 units SUBCUT Q8HR COUNTS INCLUDE 234 BEDS AT THE [facility] Last Admin: 05/10/17 05:26 Dose: 5,000 units Heparin Sodium (Porcine) (Heparin Flush Picc/Ml/Cvc(*)) 0 ml FLUSH 0600,1800 COUNTS INCLUDE 234 BEDS AT THE [facility] PRN Reason: Protocol Last Admin: 05/10/17 05:27 Dose: 3 ml Cefazolin Sodium 2 gm/ Sterile (Water) 20 mls @ 60 mls/hr IVPB Q8H COUNTS INCLUDE 234 BEDS AT THE [facility] Last Admin: 05/10/17 08:37 Dose: 60 mls/hr Rifampin 600 mg/ Sodium (Chloride) 260 mls @ 130 mls/hr IVPB Q24HR COUNTS INCLUDE 234 BEDS AT THE [facility] Last Admin: 05/10/17 10:39 Dose: 130 mls/hr Potassium Chloride/Sodium Chloride (Ns 0.45% Kcl 20 Meq 1000 Ml*) 1,000 mls @ 75 mls/hr IV PER RATE COUNTS INCLUDE 234 BEDS AT THE [facility] Stop: 05/11/17 15:30 Multivitamins (Theragran W/Minerals Liq*) 15 ml PO DAILY COUNTS INCLUDE 234 BEDS AT THE [facility] Last Admin: 05/10/17 08:34 Dose: 15 ml Nebivolol (Bystolic Tab (Nf)) 10 mg PO QAM COUNTS INCLUDE 234 BEDS AT THE [facility] Last Admin: 05/10/17 08:35 Dose: 10 mg Ondansetron HCl (Zofran Inj*) 4 mg IV Q6H PRN PRN Reason: NAUSEA/VOMITING Last Admin: 05/09/17 16:12 Dose: 4 mg Oxycodone HCl (Roxycodone Tab*) 5 mg PO Q4H PRN PRN Reason: PAIN Last Admin: 05/10/17 08:35 Dose: 5 mg Potassium Chloride (Klor-Con Liquid*) 20 meq PO TID COUNTS INCLUDE 234 BEDS AT THE [facility] Last Admin: 05/10/17 08:35 Dose: 20 meq Thiamine HCl (Vitamin B-1 Tab*) 100 mg PO DAILY [facility] Last Admin: 05/10/17 08:35 Dose: 100 mg Vital Signs - 8 hr 05/10/17 05/10/17 05/10/17 07:22 08:35 09:45 Temperature 98.1 F Pulse Rate 83 Respiratory 18 16 16 Rate Blood Pressure 158/62 (mmHg) O2 Sat by Pulse 94 Oximetry Oxygen Devices in Use Now: None Appearance: Alert, partly up in bed. Neutral affect. Looks comfortable. Eyes: No Scleral Icterus Respiratory: Symmetrical Chest Expansion and Respiratory Effort, Clear to Auscultation, Clear to Percussion Cardiovascular: NL Sounds; No Murmurs; No JVD, RRR Extremities: No Clubbing, Cyanosis, - - edema R hand Skin: No Rash or Ulcers, No Nodules or Sclerosis Neurological: NL Sensation - Fair verbal skills. No tremor. Result Diagrams: 05/08/17 13:25 05/09/17 05:30 Microbiology and Other Data: Microbiology 04/22/17 06:20 Nasal Screen MRSA (PCR)(KEEGAN) - Final Nasal Mrsa Not Detected Assess/Plan/Problems-Billing Assessment: 76 yo M with h/o HTN, multiple joint replacements, GI bleed (and partial colon resection due to bleed) - Patient Problems (1) Staphylococcus aureus bacteremia Current Visit: Yes Status: Resolved Code(s): R78.81 - BACTEREMIA SNOMED Code(s): 122690174 Comment: MSSA with L knee and R shoulder septic arthropathy. Continue cefazolin and rifampin. PO oxycodone PRN pain. Repeat joint fluid aspirations from R shoulder and L knee from 05/08 both no growth day 2. CT with contrast showed fluid collections at T1-3, L4. Still febrile. Message left for Dr. Melendrez to call me back. (2) HTN (hypertension) Current Visit: Yes Status: Acute Code(s): I10 - ESSENTIAL (PRIMARY) HYPERTENSION SNOMED Code(s): 59467986 Comment: controlled, cont Bystolic, hold Norvasc (3) Debility Current Visit: Yes Status: Acute Code(s): R53.81 - OTHER MALAISE SNOMED Code(s): 34528512 Comment: He will need extensive rehab. (4) Hypoalbuminemia Current Visit: Yes Status: Acute Code(s): E88.09 - OTH DISORDERS OF PLASMA- PROTEIN METABOLISM, NEC SNOMED Code(s): 956001887 Comment: Calorie counts ordered. Prealbumin and albumin level 05/11. Status and Disposition: inpatient
[2017-05-10] MEDS: Atorvastatin* 20 MG TAB PO SCH (17:46)
--- NOTE | 2017-05-11 00:34 | PN ---
Progress Note - Progress Note Date of Service: 05/11/17 SOAP: Subjective: [] No events ON. In regular floor. On TF. On Abx IV. Reported min drainage frtom wound. Patient had CT C/T/L spine with postop changes, no obvious epidural abscess, small collection T1-3 and L4, possible seroma vs hematoma, vs abscess. Rt psoas possible abscess. Objective: []VSS Afebrile(Oral Temp) Wound s,c,d, minimal discharge on dressing mid thoracic, lower lumbar. No redness, No active drainage, even to pressure. AA, Ox1-2 , RADHA, Face symmetric, Follows commands. Nichole consistently, good hand travel nurse bilaterally, bilateral foot PF/DF toes F/E to command. Lt knee, Rt Shoulder sp surgery. Sensory grossly intact to light touch, grimaces to pain to all extremities Assessment: []76 yom POD#17 multilevel laminectomies for holospinal epidural abscess Plan: [] Monitor VS, Neurochecks. Monitor wound. Wound dressing changes daily. May consider I&D if drainage persists. For now would consider MRI of C/T/L spine and possibly wound vac. Consider IR drainage of Rt psoas abscess. Monitor labs. Keep sutures for 6 weeks. PT/OT when able to participate. Abx per ID Appreciate ID, IM, Orthopedic care. Armond Melendrez MD
[2017-05-11] MEDS: ceFAZolin 2 GM/20 ML SYRINGE IVPB Q8H IVPB SCH ×6 (01:11→17:12)
[2017-05-11] MEDS: Heparin VIAL(*) 5000 UNITS/ML VIAL (FIVE THOUSAND) SUBCUT SCH ×3 (05:33→22:02)
[2017-05-11 05:38] LABS: ABS Basophils 0 10^3/ul (0-0.2); ABS Eosinophils 0.4 10^3/ul (0-0.6); ABS Lymphocytes 0.9 10^3/ul (1.0-4.8); ABS Neutrophils 7.8 10^3/ul (1.5-7.7); ABS Nucleated RBC 0 10^3/ul; Eosinophil % 3.8 % (0-6); Hematocrit 21 % (42-52); Lymphocyte % 8.5 % (25-47); Mean Corpuscular HGB Conc 34 g/dl (31-36); Mean Corpuscular Hemoglobin 31 pg (27-31); Mean Corpuscular Volume 92 fL (80-94); Mean Platelet Volume 7 um3 (7.4-10.4); Nucleated Red Blood Cells % 0; Platelet Count 334 10^3/ul (150-450); Red Blood Count 2.26 10^6/ul (4.0-5.4); Red Cell Distribution Width 15 % (10.5-15)
[2017-05-11 05:55] LABS: EGFR Non-African American 79.4 (>60)
[2017-05-11] MEDS: Allopurinol TAB* 100 MG PO SCH (09:05)
[2017-05-11] MEDS: CMCS: Nebivolol TAB (NF) 2.5 MG TAB PO SCH (09:09)
[2017-05-11] MEDS: Thiamine TAB* 100 MG TAB PO SCH (09:09)
[2017-05-11] MEDS: Multivitamins ADULT w/MIN LIQ* 15 ML UDC PO SCH (09:09)
[2017-05-11] MEDS: Potassium Chloride LIQUID* 20 MEQ PACKET PO SCH ×3 (09:29→22:03)
[2017-05-11] MEDS: RiFAMPin IV* 600 MG in NS 0.9% 250 ML* 250 ML IVPB SCH (10:09)
--- NOTE | 2017-05-11 12:57 | PN ---
Progress Note - Progress Note Date of Service: 05/11/17 SOAP: Subjective: []Patient seen at bedside. He feels well with no reported pain. Objective: [] Vital Signs Temp 97.4 F 05/11/17 11:44 Pulse 73 05/11/17 11:44 Resp 20 05/11/17 11:44 BP 148/63 05/11/17 11:44 Pulse Ox 94 05/11/17 11:44 Intake & Output 05/10/17 05/11/17 05/11/17 18:59 06:59 18:59 Intake Total 460 1190 Output Total 575 1125 Balance -115 65 Weight 209 lb Intake: IV Fluids 950 NS (0.45%) 20 meq KCL 950 Oral 460 240 Output: [place] 575 1125 Other: # Bowel Movements 1 Estimated Stool Amount Large Laboratory Last Values WBC 10.0 10^3/ul (3.5-10.8) 05/11/17 05:30 RBC 2.26 10^6/ul (4.0-5.4) L 05/11/17 05:30 Hgb 7.0 g/dl (14.0-18.0) L 05/11/17 05:30 Hct 21 % (42-52) L 05/11/17 05:30 MCV 92 fL (80-94) 05/11/17 05:30 MCH 31 pg (27-31) 05/11/17 05:30 MCHC 34 g/dl (31-36) 05/11/17 05:30 RDW 15 % (10.5-15) 05/11/17 05:30 Plt Count 334 10^3/ul (150-450) 05/11/17 05:30 MPV 7 um3 (7.4-10.4) L 05/11/17 05:30 Neut % (Auto) 77.5 % (38-83) 05/11/17 05:30 Lymph % (Auto) 8.5 % (25-47) L 05/11/17 05:30 [place] % (Auto) 9.9 % (0-7) H 05/11/17 05:30 Eos % (Auto) 3.8 % (0-6) 05/11/17 05:30 Baso % (Auto) 0.3 % (0-2) 05/11/17 05:30 Absolute Neuts (auto) 7.8 10^3/ul (1.5-7.7) H 05/11/17 05:30 Absolute Lymphs (auto) 0.9 10^3/ul (1.0-4.8) L 05/11/17 05:30 Absolute Monos (auto) 1.0 10^3/ul (0-0.8) H 05/11/17 05:30 Absolute Eos (auto) 0.4 10^3/ul (0-0.6) 05/11/17 05:30 Absolute Basos (auto) 0 10^3/ul (0-0.2) 05/11/17 05:30 Absolute Nucleated RBC 0 10^3/ul 05/11/17 05:30 Immature Gran % 2 % (0-9) 04/30/17 05:38 Neutrophils % 89 % (38-83) H 04/30/17 05:38 Band Neutrophils % 1 % (0-8) 04/30/17 05:38 Lymphocytes % 3 % (25-47) L 04/30/17 05:38 Monocytes % 4 % (0-7) 04/30/17 05:38 Eosinophils % 1 % (0-6) 04/30/17 05:38 Basophils % 1 % (0-2) 04/30/17 05:38 Metamyelocytes % 1 % (0-2) 04/30/17 05:38 Nucleated RBC % 0 05/11/17 05:30 Abs Neuts (Manual) 15.4 10^3/ul (1.5-7.7) H 04/30/17 05:38 Abs Monocytes (Manual) 0.7 10^3/ul (0-0.8) 04/30/17 05:38 Absolute Eos (Manual) 0.2 10^3/ul (0-0.6) 04/30/17 05:38 Abs Basophils (Manual) 0.2 10^3/ul (0-0.2) 04/30/17 05:38 Normal RBC Morphology Normal (Normal) 04/30/17 05:38 INR (Anticoag Therapy) 1.18 (0.77-1.02) H 04/23/17 00:48 APTT 35.6 seconds (26.0-36.3) 04/23/17 00:48 Patient Temperature Not Reportable 04/23/17 00:48 ABG pH 7.44 (7.35-7.45) 04/23/17 00:48 ABG pH (Temp Correct) Not Reportable 04/23/17 00:48 ABG pCO2 31 mmHg (35-45) L 04/23/17 00:48 ABG pCO2 (Temp Corrct Not Reportable 04/23/17 00:48 ABG pO2 128 mmHg (80-100) H 04/23/17 00:48 ABG pO2 (Temp Correct Not Reportable 04/23/17 00:48 ABG HCO3 23.0 mmol/L (19-31) 04/23/17 00:48 ABG O2 Saturation 99.2 % (95-98) H 04/23/17 00:48 ABG Base Excess -2.5 (-2.0-2.0) L 04/23/17 00:48 Respiration Rate 14 04/23/17 00:48 O2 Delivery Device ventilator 04/23/17 00:48 Ventilator Type 600 04/23/17 00:48 Vent Mode apv 04/23/17 00:48 FiO2 50 04/23/17 00:48 Inspiratory Time 1.0 04/23/17 00:48 PEEP 5 03 00:48 Pressure Support Not Reportable 04/23/17 00:48 Pressure Control Not Reportable 04/23/17 00:48 EPAP Not Reportable 04/23/17 00:48 IPAP Not Reportable 04/23/17 00:48 BiPAP Not Reportable 04/23/17 00:48 Sodium 137 mmol/L (133-145) 05/11/17 05:30 Potassium 3.4 mmol/L (3.5-5.0) L 05/11/17 05:30 Chloride 106 mmol/L (101-111) 05/11/17 05:30 Carbon Dioxide 25 mmol/L (22-32) 05/11/17 05:30 Anion Gap 6 mmol/L (2-11) 05/11/17 05:30 BUN 15 mg/dL (6-24) 05/11/17 05:30 Creatinine 0.93 mg/dL (0.67-1.17) 05/11/17 05:30 Est GFR ( Amer) 102.1 (>60) 05/11/17 05:30 Est GFR (Non-Af Amer) 79.4 (>60) 05/11/17 05:30 BUN/Creatinine Ratio 16.1 (8-20) 05/11/17 05:30 Glucose 92 mg/dL (70-100) 05/11/17 05:30 Lactic Acid 1.1 mmol/L (0.5-2.0) 04/21/17 08:43 Calcium 7.7 mg/dL (8.6-10.3) L 05/11/17 05:30 Phosphorus 4.3 mg/dL (2.5-5.0) 05/06/17 05:05 Magnesium 1.7 mg/dL (1.9-2.7) L 05/06/17 05:05 Total Bilirubin 0.70 mg/dL (0.2-1.0) 05/03/17 05:05 AST 27 U/L (13-39) 05/03/17 05:05 ALT 22 U/L (7-52) 05/03/17 05:05 Alkaline Phosphatase 95 U/L (34-104) 05/03/17 05:05 Ammonia 34 mol/L (16-53) 05/06/17 05:05 Troponin I 0.03 ng/mL (<0.04) 04/21/17 04:40 C-Reactive Protein 106.61 mg/L (< 5.00) H 05/11/17 05:30 Total Protein 5.4 g/dL (6.4-8.9) L 05/03/17 05:05 Albumin 2.1 g/dL (3.2-5.2) L 05/11/17 05:30 Globulin 3.4 g/dL (2-4) 05/03/17 05:05 Albumin/Globulin Ratio 0.6 (1-3) L 05/03/17 05:05 Prealbumin 6 mg/dL (18-38) L 05/11/17 05:30 Lipase 28 U/L (11.0-82.0) 04/21/17 04:40 Fluid Source Synovial fluid 05/08/17 19:15 Fluid Volume 20 mL 05/08/17 19:15 Fluid Color Red 05/08/17 19:15 Fluid Appearance Bloody 05/08/17 19:15 Fluid WBC 8676 /mcL (0-677527) 05/08/17 19:15 Fluid RBC 00732 /mcL 05/08/17 19:15 Fluid Tot Cell Count 100 05/08/17 19:15 Fluid Neutrophils 93 % 05/08/17 19:15 Fluid Band Neutrophils 3 % 05/08/17 19:15 Fluid Lymphocytes 3 % 05/08/17 19:15 Fluid Monocytes 1 % 05/08/17 19:15 Fluid Other Cells 1 04/23/17 10:30 Fluid Cell Count Rvw By 05/08/17 19:15 Fluid Crystals None seen (None Seen) 05/08/17 19:15 Fluid Total Protein 3.1 g/dL 04/23/17 10:30 Blood Type O Positive 05/06/17 05:05 Antibody Screen Negative 05/06/17 05:05 Crossmatch See Detail 05/06/17 05:05 General- Resting in bed, answering questions appropriately regarding pain though still confused MSK- L knee- steri- strips in place, wound edges well approximated with no drainage or erythema. PROM 5-30 with pain after 30. Calf supple and nontender without erythema, edema or palpable cords. 2+ DP pulse. R shoulder- Incisions CDI, well approximated without erythema or discharge. PROM FF 70, ABD 90 endpoints limited by pain. Mild edema R hand, non-pitting. 2+ radial pulse Assessment: POD 18 open I&D left knee, e/o liner POD 15 arthroscopic I&D right shoulder Plan: - ABX- Per ID - Continue PT/ OT with PROM
--- NOTE | 2017-05-11 14:16 | PN ---
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 Denies pain or fever. No fever 24 hours. No rash or diarrhea per RN. Objective: Vital Signs Temp 36.3 C 05/11/17 11:44 Pulse 73 05/11/17 11:44 Resp 20 05/11/17 11:44 BP 148/63 05/11/17 11:44 Pulse Ox 94 05/11/17 11:44 Intake & Output 05/10/17 05/11/17 05/11/17 18:59 06:59 18:59 Intake Total 460 1190 Output Total 575 1125 Balance -115 65 Weight 209 lb Intake: IV Fluids 950 NS (0.45%) 20 meq KCL 950 Oral 460 240 Output: [place] 575 1125 Other: # Bowel Movements 1 Estimated Stool Amount Large Gen:no distress Neuro: awake, answers questions, moves all extremities HEENT:PERRL, MMD Heart:RRR no murmur Lungs:coarse anterior BS Abd:+ BS NTND soft Skin: no rash MSK: L knee no effusion, mild warmth, incision intact; R shoulder mild warmth no effusion; no other synovitis Laboratory Results - last 24 hr 05/11/17 05/11/17 05:30 05:30 WBC 10.0 RBC 2.26 L Hgb 7.0 L Hct 21 L MCV 92 MCH 31 MCHC 34 RDW 15 Plt Count 334 MPV 7 L Neut % (Auto) 77.5 Lymph % (Auto) 8.5 L [place] % (Auto) 9.9 H Eos % (Auto) 3.8 Baso % (Auto) 0.3 Absolute Neuts (auto) 7.8 H Absolute Lymphs (auto) 0.9 L Absolute Monos (auto) 1.0 H Absolute Eos (auto) 0.4 Absolute Basos (auto) 0 Absolute Nucleated RBC 0 Nucleated RBC % 0 Sodium 137 Potassium 3.4 L Chloride 106 Carbon Dioxide 25 Anion Gap 6 BUN 15 Creatinine 0.93 Est GFR ( Amer) 102.1 Est GFR (Non-Af Amer) 79.4 BUN/Creatinine Ratio 16.1 Glucose 92 Calcium 7.7 L C-Reactive Protein 106.61 H Albumin 2.1 L Prealbumin 6 L Assessment: 1. MSSA bacteremia, cleared, due to below infections. TTE 04/22 no vegetation or regurgitant valve lesion, no peripheral stigmta of IE, will be on long course IV antibiotics so does need MIRLANDE at this point 2. encephalopathy, present on admission, improving 3. MSSA epidural abscess s/p I&D; psoas collection on CT, unchanged in size 4. 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 MSSA septic right shoulder s/p I&D 6. presence bilateral hip arthroplasties Plan: 1. 2 gm IV Q8hrs day of IV ancef/rifampin 2. IR aspiration/drain of psoas collection 3. if CRP not trending down, more I&D left knee, right shoulder Discussed Dr Serrano and Dr Childers
[2017-05-11] MEDS ORDERED: Potassium Chloride LIQUID* 20 MEQ PACKET PO ONE (16:12)
--- NOTE | 2017-05-11 16:22 | PN ---
Subjective Date of Service: 05/11/17 Interval History: Pt denies pain but he answers most questions nonsensically. His thinks his speech is somewhat worse today than it was on Wednesday and he is seeming more tired per his . Objective Active Medications: Allopurinol (Zyloprim Tab*) 100 mg PO QAM [facility] Last Admin: 05/11/17 09:05 Dose: 100 mg Atorvastatin Calcium (Lipitor*) 20 mg PO 1700 [facility] Last Admin: 05/10/17 17:46 Dose: 20 mg Heparin Sodium (Porcine) (Heparin Vial(*)) 5,000 units SUBCUT Q8HR [facility] Last Admin: 05/11/17 13:51 Dose: 5,000 units Heparin Sodium (Porcine) (Heparin Flush Picc/Ml/Cvc(*)) 0 ml FLUSH 0600,1800 [facility] PRN Reason: Protocol Last Admin: 05/11/17 05:30 Dose: 3 ml Cefazolin Sodium 2 gm/ Sterile (Water) 20 mls @ 60 mls/hr IVPB Q8H [facility] Last Admin: 05/11/17 09:10 Dose: 60 mls/hr Rifampin 600 mg/ Sodium (Chloride) 260 mls @ 130 mls/hr IVPB Q24HR [facility] Last Admin: 05/11/17 10:09 Dose: 130 mls/hr Lorazepam (Ativan Inj*) 0.5 mg IV PUSH Q4H PRN PRN Reason: ANXIETY Multivitamins (Theragran W/Minerals Liq*) 15 ml PO DAILY [facility] Last Admin: 05/11/17 09:09 Dose: 15 ml Nebivolol (Bystolic Tab (Nf)) [facility] Last Admin: 05/11/17 09:09 Dose: 10 mg Ondansetron HCl (Zofran Inj*) 4 mg IV Q6H PRN PRN Reason: NAUSEA/VOMITING Last Admin: 05/09/17 16:12 Dose: 4 mg Oxycodone HCl (Roxycodone Tab*) 5 mg PO Q4H PRN PRN Reason: PAIN Last Admin: 05/10/17 08:35 Dose: 5 mg Potassium Chloride (Klor-Con Liquid*) 20 meq PO TID [facility] Last Admin: 05/11/17 13:51 Dose: 20 meq Thiamine HCl (Vitamin B-1 Tab*) 100 mg PO DAILY [facility] Last Admin: 05/11/17 09:09 Dose: 100 mg Vital Signs - 8 hr 05/11/17 05/11/17 11:23 11:44 Temperature 97.4 F 97.4 F Pulse Rate 73 73 Respiratory 20 20 Rate Blood Pressure 148/63 148/63 (mmHg) O2 Sat by Pulse 94 94 Oximetry Oxygen Devices in Use Now: None Appearance: Elderly male lying in a recliner, appears to be awake but then snores, he awakens and mumbles some sounds and appears to fall back asleep, he is in NAD Eyes: No Scleral Icterus Ears/Nose/Mouth/Throat: Mucous Membranes Moist Respiratory: Symmetrical Chest Expansion and Respiratory Effort, Clear to Auscultation - anteriorly Cardiovascular: NL Sounds; No Murmurs; No JVD, RRR, No Edema Abdominal: NL Sounds; No Tenderness; No Distention Extremities: No Clubbing, Cyanosis Skin: No Rash or Ulcers, - - incision over L knee healing well, no erythema or drainage, R shoulder incision healed well, back incision not inspected today due to pts positioning in the chair Neurological: - - confused and not really able to communicate anything effectively Result Diagrams: 05/11/17 05:30 05/11/17 05:30 Microbiology and Other Data: Microbiology 04/22/17 06:20 Nasal Screen MRSA (PCR)(KEEGAN) - Final Nasal Mrsa Not Detected Assess/Plan/Problems-Billing Mr Bonilla is a 76 yo M with h/o HTN, multiple joint replacements, GI bleed (and partial colon resection due to bleed) who presented to the ER with c/o severe back pain and was ultimately found to a very large epidural abscess, R septic shoulder, L septic knee in the setting of MSSA bacteremia. - Patient Problems (1) MSSA bacteremia Current Visit: Yes Status: Acute Code(s): R78.81 - BACTEREMIA SNOMED Code( s): 933621873 Comment: The patient was bacteremic from at least 04/21/17. Follow up blood cultures from 05/09/17 are negative so far. Continue rifampin and ancef per Dr. Franklin. The patient has been having intermittent fevers and has a climbing CRP. On CT lumbar spine it appears he a R psoas muscle abscess. Will speak with IR to see about getting it drained. (2) Epidural abscess Current Visit: Yes Status: Acute Code(s): G06.2 - EXTRADURAL AND SUBDURAL ABSCESS, UNSPECIFIED SNOMED Code(s): 95392970 Comment: The patient presented with a very large epidural abscess. He underwent multilevel skip laminectomies at C6-7, T2, T3, T5, T6, T8, T9, T10, T12, L3, L4, L5 on 04/22/17. Continue rifampin and ancef per Dr. Franklin. (3) Septic arthritis of knee, left Current Visit: Yes Status: Acute Code(s): M00.9 - PYOGENIC ARTHRITIS, UNSPECIFIED SNOMED Code(s): 864615409 Comment: The patient is s/p washout/debridement and liner exchange of the left knee total arthroplasty 04/23/17. Left knee aspiration on 05/08/17 has no growth so far. Continue ancef and rifampin per Dr. Franklin. (4) Septic arthritis of shoulder, right Current Visit: Yes Status: Acute Code(s): M00.9 - PYOGENIC ARTHRITIS, UNSPECIFIED SNOMED Code(s): 61911570 Comment: The patient is s/p washout/debridement of R shoulder 04/26/17. Dr. Galan has considered taking the patient back to the OR for repeat washout of the shoulder but is currently holding on this. Aspiration of the R shoulder 05/08 has no growth though the PCR is positive for MSSA. Continue ancef and rifampin. (5) Encephalopathy Current Visit: Yes Status: Acute Code(s): G93.40 - ENCEPHALOPATHY, UNSPECIFIED SNOMED Code(s): 45345345 Comment: The patient remains encephalopathic. Likely septic encephalopathy from being septic on admission from the numerous infectious sources. Will check ammonia level. Monitor mental status. (6) HTN (hypertension) Current Visit: Yes Status: Acute Code(s): I10 - ESSENTIAL (PRIMARY) HYPERTENSION SNOMED Code(s): 05306289 Comment: BP mild-moderately elevated with antihypertensives being held. For now continue to monitor. (7) DVT prophylaxis Current Visit: Yes Status: Acute Code(s): FHE4399 - SNOMED Code(s): 309244778 Comment: SQ heparin (8) Full code status Current Visit: Yes Status: Acute Code(s): Z78.9 - OTHER SPECIFIED HEALTH STATUS SNOMED Code(s): 369931162 Status and Disposition: .
[2017-05-11] MEDS: Atorvastatin* 20 MG TAB PO SCH (17:21)
--- NOTE | 2017-05-11 19:43 | PN ---
Progress Note - Progress Note Date of Service: 05/11/17 SOAP: Subjective: []No events ON. On TF. On Abx IV. Reported min drainage from wound. Objective: []VSS Afebrile(Oral Temp) Wound s,c,d, minimal dry discharge on dressing mid thoracic, lower lumbar. No redness, No active drainage, even to pressure. AA, Ox1-2 , RADHA, Face symmetric, Follows commands. Nichole consistently, good hand photographer finish bilaterally, bilateral foot PF/DF toes F/E to command. Lt knee, Rt Shoulder sp surgery. Sensory grossly intact to light touch, grimaces to pain to all extremities Assessment: []76 yom POD#18 multilevel laminectomies for holospinal epidural abscess Plan: []Monitor VS, Neurochecks. Monitor wound. Wound dressing changes daily. May consider I&D if drainage persists. For now would consider MRI of C/T/L spine and possibly wound vac. Consider IR drainage of Rt psoas abscess. Monitor labs. Keep sutures for 6 weeks. PT/OT when able to participate. Abx per ID Appreciate ID, IM, Orthopedic care. Armond Melendrez MD
[2017-05-11] MEDS: oxyCODONE TAB* 5 MG TAB PO PRN (22:02)
--- NOTE | 2017-05-11 23:44 | PN ---
Progress Note - Progress Note Date of Service: 05/11/17 Note: Paged for fever and tachycardia. Appeared to have cleared his blood Cx on . Will repeat bld cx x 2 and order tylenol.
[2017-05-11] MEDS: Acetaminophen TAB* 325 MG PO PRN (23:59)
[2017-05-12] MEDS: Heparin VIAL(*) 5000 UNITS/ML VIAL (FIVE THOUSAND) SUBCUT SCH ×3 (05:46→21:49)
[2017-05-12 06:13] LABS: ABS Basophils 0 10^3/ul (0-0.2); ABS Eosinophils 0.6 10^3/ul (0-0.6); ABS Lymphocytes 0.8 10^3/ul (1.0-4.8); ABS Monocytes 0.9 10^3/ul (0-0.8); ABS Neutrophils 6.6 10^3/ul (1.5-7.7); ABS Nucleated RBC 0 10^3/ul; Eosinophil % 6.8 % (0-6); Hematocrit 22 % (42-52); Hemoglobin 7.4 g/dl (14.0-18.0); Lymphocyte % 8.9 % (25-47); Mean Corpuscular HGB Conc 34 g/dl (31-36); Mean Corpuscular Hemoglobin 31 pg (27-31); Mean Corpuscular Volume 92 fL (80-94); Mean Platelet Volume 7 um3 (7.4-10.4); Nucleated Red Blood Cells % 0; Platelet Count 350 10^3/ul (150-450); Red Blood Count 2.41 10^6/ul (4.0-5.4); Red Cell Distribution Width 15 % (10.5-15)
[2017-05-12 06:18] LABS: INR 1.35 (0.77-1.02)
[2017-05-12 06:23] LABS: EGFR Non-African American 83.6 (>60)
[2017-05-12] MEDS ORDERED: Magnesium Sulfate 2 GM IV* 2 GM/50 ML BAG IVPB ONE (09:57)
[2017-05-12] MEDS: Multivitamins ADULT w/MIN LIQ* 15 ML UDC PO SCH (10:17)
[2017-05-12] MEDS: ceFAZolin 2 GM/20 ML SYRINGE IVPB Q8H IVPB SCH ×6 (10:17→17:30)
[2017-05-12] MEDS: CMCS: Nebivolol TAB (NF) 2.5 MG TAB PO SCH (10:18)
[2017-05-12] MEDS: Thiamine TAB* 100 MG TAB PO SCH (10:18)
[2017-05-12] MEDS: Potassium Chloride LIQUID* 20 MEQ PACKET PO SCH ×3 (10:18→21:07)
[2017-05-12] MEDS: Allopurinol TAB* 100 MG PO SCH (10:18)
[2017-05-12] MEDS: RiFAMPin IV* 600 MG in NS 0.9% 250 ML* 250 ML IVPB SCH (11:25)
--- NOTE | 2017-05-12 12:14 | PN ---
Progress Note - Progress Note Date of Service: 05/12/17 SOAP: Subjective: []Patient seen OOB in chair. He has no pain today and no other complaints. Objective: [] Vital Signs Temp 97.9 F 05/12/17 03:59 Pulse 99 05/12/17 08:00 Resp 19 05/12/17 08:00 BP 152/88 05/12/17 07:26 Pulse Ox 97 05/12/17 08:00 Intake & Output 05/11/17 05/12/17 05/12/17 18:59 06:59 18:59 Intake Total 340 285 130 Output Total 650 1350 Balance -310 -1065 130 Intake: IV Fluids 20 NS (0.9%) 20 IVPB 25 ABX - CEFAZOLIN 25 Oral 340 240 130 Output: [place] 650 1350 Other: # Bowel Movements 1 Estimated Stool Amount Small Laboratory Last Values WBC 9.0 10^3/ul (3.5-10.8) 05/12/17 05:47 RBC 2.41 10^6/ul (4.0-5.4) L 05/12/17 05:47 Hgb 7.4 g/dl (14.0-18.0) L 05/12/17 05:47 Hct 22 % (42-52) L 05/12/17 05:47 MCV 92 fL (80-94) 05/12/17 05:47 MCH 31 pg (27-31) 05/12/17 05:47 MCHC 34 g/dl (31-36) 05/12/17 05:47 RDW 15 % (10.5-15) 05/12/17 05:47 Plt Count 350 10^3/ul (150-450) 05/12/17 05:47 MPV 7 um3 (7.4-10.4) L 05/12/17 05:47 Neut % (Auto) 73.5 % (38-83) 05/12/17 05:47 Lymph % (Auto) 8.9 % (25-47) L 05/12/17 05:47 [place] % (Auto) 10.4 % (0-7) H 05/12/17 05:47 Eos % (Auto) 6.8 % (0-6) H 05/12/17 05:47 Baso % (Auto) 0.4 % (0-2) 05/12/17 05:47 Absolute Neuts (auto) 6.6 10^3/ul (1.5-7.7) 05/12/17 05:47 Absolute Lymphs (auto) 0.8 10^3/ul (1.0-4.8) L 05/12/17 05:47 Absolute Monos (auto) 0.9 10^3/ul (0-0.8) H 05/12/17 05:47 Absolute Eos (auto) 0.6 10^3/ul (0-0.6) 05/12/17 05:47 Absolute Basos (auto) 0 10^3/ul (0-0.2) 05/12/17 05:47 Absolute Nucleated RBC 0 10^3/ul 05/12/17 05:47 Immature Gran % 2 % (0-9) 04/30/17 05:38 Neutrophils % 89 % (38-83) H 04/30/17 05:38 Band Neutrophils % 1 % (0-8) 04/30/17 05:38 Lymphocytes % 3 % (25-47) L 04/30/17 05:38 Monocytes % 4 % (0-7) 04/30/17 05:38 Eosinophils % 1 % (0-6) 04/30/17 05:38 Basophils % 1 % (0-2) 04/30/17 05:38 Metamyelocytes % 1 % (0-2) 04/30/17 05:38 Nucleated RBC % 0 05/12/17 05:47 Abs Neuts (Manual) 15.4 10^3/ul (1.5-7.7) H 04/30/17 05:38 Abs Monocytes (Manual) 0.7 10^3/ul (0-0.8) 04/30/17 05:38 Absolute Eos (Manual) 0.2 10^3/ul (0-0.6) 04/30/17 05:38 Abs Basophils (Manual) 0.2 10^3/ul (0-0.2) 04/30/17 05:38 Normal RBC Morphology Normal (Normal) 04/30/17 05:38 INR (Anticoag Therapy) 1.35 (0.77-1.02) H 05/12/17 05:47 APTT 35.6 seconds (26.0-36.3) 04/23/17 00:48 Patient Temperature Not Reportable 04/23/17 00:48 ABG pH 7.44 (7.35-7.45) 04/23/17 00:48 ABG pH (Temp Correct) Not Reportable 04/23/17 00:48 ABG pCO2 31 mmHg (35-45) L 03 00:48 ABG pCO2 (Temp Corrct Not Reportable 04/23/17 00:48 ABG pO2 128 mmHg (80-100) H 04/23/17 00:48 ABG pO2 (Temp Correct Not Reportable 04/23/17 00:48 ABG HCO3 23.0 mmol/L (19-31) 04/23/17 00:48 ABG O2 Saturation 99.2 % (95-98) H 04/23/17 00:48 ABG Base Excess -2.5 (-2.0-2.0) L 03 00:48 Respiration Rate 14 03 00:48 O2 Delivery Device ventilator 04/23/17 00:48 Ventilator Type 600 03 00:48 Vent Mode apv 04/23/17 00:48 FiO2 50 03 00:48 Inspiratory Time 1.0 04/23/17 00:48 PEEP 5 03 00:48 Pressure Support Not Reportable 04/23/17 00:48 Pressure Control Not Reportable 04/23/17 00:48 EPAP Not Reportable 04/23/17 00:48 IPAP Not Reportable 04/23/17 00:48 BiPAP Not Reportable 04/23/17 00:48 Sodium 140 mmol/L (133-145) 05/12/17 05:47 Potassium 3.2 mmol/L (3.5-5.0) L 05/12/17 05:47 Chloride 107 mmol/L (101-111) 05/12/17 05:47 Carbon Dioxide 23 mmol/L (22-32) 05/12/17 05:47 Anion Gap 10 mmol/L (2-11) 05/12/17 05:47 BUN 14 mg/dL (6-24) 05/12/17 05:47 Creatinine 0.89 mg/dL (0.67-1.17) 05/12/17 05:47 Est GFR ( Amer) 107.5 (>60) 05/12/17 05:47 Est GFR (Non-Af Amer) 83.6 (>60) 05/12/17 05:47 BUN/Creatinine Ratio 15.7 (8-20) 05/12/17 05:47 Glucose 80 mg/dL (70-100) 05/12/17 05:47 Lactic Acid 1.1 mmol/L (0.5-2.0) 04/21/17 08:43 Calcium 7.8 mg/dL (8.6-10.3) L 05/12/17 05:47 Phosphorus 4.3 mg/dL (2.5-5.0) 05/06/17 05:05 Magnesium 1.7 mg/dL (1.9-2.7) L 05/12/17 05:47 Total Bilirubin 0.70 mg/dL (0.2-1.0) 05/03/17 05:05 AST 27 U/L (13-39) 05/03/17 05:05 ALT 22 U/L (7-52) 05/03/17 05:05 Alkaline Phosphatase 95 U/L (34-104) 05/03/17 05:05 Ammonia 19 mol/L (16-53) 05/12/17 05:47 Troponin I 0.03 ng/mL (<0.04) 04/21/17 04:40 C-Reactive Protein 106.61 mg/L (< 5.00) H 05/11/17 05:30 Total Protein 5.4 g/dL (6.4-8.9) L 05/03/17 05:05 Albumin 2.1 g/dL (3.2-5.2) L 05/11/17 05:30 Globulin 3.4 g/dL (2-4) 05/03/17 05:05 Albumin/Globulin Ratio 0.6 (1-3) L 05/03/17 05:05 Prealbumin 6 mg/dL (18-38) L 05/11/17 05:30 Lipase 28 U/L (11.0-82.0) 04/21/17 04:40 Fluid Source Synovial fluid 05/08/17 19:15 Fluid Volume 20 mL 05/08/17 19:15 Fluid Color Red 05/08/17 19:15 Fluid Appearance Bloody 05/08/17 19:15 Fluid WBC 8676 /mcL (0-853954) 05/08/17 19:15 Fluid RBC 35010 /mcL 05/08/17 19:15 Fluid Tot Cell Count 100 05/08/17 19:15 Fluid Neutrophils 93 % 05/08/17 19:15 Fluid Band Neutrophils 3 % 05/08/17 19:15 Fluid Lymphocytes 3 % 05/08/17 19:15 Fluid Monocytes 1 % 05/08/17 19:15 Fluid Other Cells 1 04/23/17 10:30 Fluid Cell Count Rvw By 05/08/17 19:15 Fluid Crystals None seen (None Seen) 05/08/17 19:15 Fluid Total Protein 3.1 g/dL 04/23/17 10:30 Blood Type O Positive 05/06/17 05:05 Antibody Screen Negative 05/06/17 05:05 Crossmatch See Detail 05/06/17 05:05 -General- Resting in chair, answering questions appropriately, more engaged in exam than yesterday though still fell asleep x 2 during exam -MSK- L knee- wound edges well approximated with no drainage or erythema. PROM 5-30 with pain after 30. Calf supple and nontender without erythema, edema or palpable cords. 2+ DP pulse. Cannot follow instruction to DF/PF ankle -R shoulder- Incisions CDI, well approximated wound edges without erythema or discharge. PROM FF 70, ABD 90 endpoints limited by pain. No edema or erythema of R hand, 2+ radial pulse Assessment: POD 19 open I&D left knee, e/o liner POD 16 arthroscopic I&D right shoulder Plan: - ABX Per ID: 2 gm IV Q8hrs day of IV ancef/rifampin - CRP trending up- Plan is for IR aspiration/drain of psoas collection - Continue PT/ OT with PROM <Elizabeth Valerio M - Last Filed: 05/12/17 12:18> - Progress Note SOAP: Subjective: Spoke with patient's yesterday. Saw patient yesterday and today with exam unchanged. Spoke with ID & anesthesia about possible I&D yesterday, 05/11/17, but I decided against. The epidrual and psoas fluid collections were being worked up as possible causes of persistent elevation CRP and occasional low grade fevers. Decided to minimize GETA exposure again and hold off, for now on repeat I&Ds. Objective: 100.7 is Tmax in last 24 hours. Patient is difficult to understand. I'm only able to discern an occasional word this evening- less than in prior day's, but his ability to answer questions and articulate words clearly has vacillated. RUE: - inc c/d/i - PROM- FF to 90, ER to 10 degrees at side, IR to 80 degrees - crepitus, discomfort at terminal ranges of motion LLE: - only trace effusion - inc c/d/i - Patient actively resists my flexing more than 30 degrees so PROM 0-30 Recent cultures NGTD of right shoulder and left knee Assessment: POD 19 open I&D left knee, e/o liner POD 16 arthroscopic I&D right shoulder Plan: - Continue IV abx - I ordered CRP every other day starting tomorrow () for 1 additional data point - Scheduled IR drainage of psoas abscess Wednesday. - Neurosurgery is considering repeat I&D and possible VAC per note - Patient clearly has some level of right shoulder arthritis, from this infection or from previous. - If patient continues to have pain with limited movement of right shoulder and left knee and has persistent fevers, elevated CRP, will continue to consider repeat I&D. Possible we could combine cases if neurosurgery does a repeat I&D to lessen the burden of general anesthesia. <Doc Galan - Last Filed: 05/12/17 20:38>
--- NOTE | 2017-05-12 13:39 | PN ---
Subjective Date of Service: 05/12/17 Interval History: febrile and tachy overnight. BCx drawn but only able to get one. MRI scheduled 3pm today. CT guided drainage of psoas abcess scheduled Wednesday 1: 30pm w/ Dr. [place]. Objective Active Medications: Acetaminophen (Tylenol Tab*) 650 mg PO Q4H PRN PRN Reason: FEVER Last Admin: 05/11/17 23:59 Dose: 650 mg Allopurinol (Zyloprim Tab*) 100 mg PO QAM [facility] Last Admin: 05/12/17 10:18 Dose: 100 mg Atorvastatin Calcium (Lipitor*) 20 mg PO 1700 [facility] Last Admin: 05/11/17 17:21 Dose: 20 mg Heparin Sodium (Porcine) (Heparin Vial(*)) 5,000 units SUBCUT Q8HR [facility] Last Admin: 05/12/17 05:46 Dose: 5,000 units Heparin Sodium (Porcine) (Heparin Flush Picc/Ml/Cvc(*)) 0 ml FLUSH 0600,1800 MIKE PRN Reason: Protocol Last Admin: 05/12/17 05:46 Dose: 3 ml Cefazolin Sodium 2 gm/ Sterile (Water) 20 mls @ 60 mls/hr IVPB Q8H MIKE Last Admin: 05/12/17 10:17 Dose: 60 mls/hr Rifampin 600 mg/ Sodium (Chloride) 260 mls @ 130 mls/hr IVPB Q24HR [facility] Last Admin: 05/12/17 11:25 Dose: 130 mls/hr Lorazepam (Ativan Inj*) 0.5 mg IV PUSH Q4H PRN PRN Reason: ANXIETY Multivitamins (Theragran W/Minerals Liq*) 15 ml PO DAILY [facility] Last Admin: 05/12/17 10:17 Dose: 15 ml Nebivolol (Bystolic Tab (Nf)) 10 mg PO QAM [facility] Last Admin: 05/12/17 10:18 Dose: 10 mg Ondansetron HCl (Zofran Inj*) 4 mg IV Q6H PRN PRN Reason: NAUSEA/VOMITING Last Admin: 05/09/17 16:12 Dose: 4 mg Oxycodone HCl (Roxycodone Tab*) 5 mg PO Q4H PRN PRN Reason: PAIN Last Admin: 05/11/17 22:02 Dose: 5 mg Potassium Chloride (Klor-Con Liquid*) 20 meq PO TID [facility] Last Admin: 05/12/17 10:18 Dose: 20 meq Thiamine HCl (Vitamin B-1 Tab*) 100 mg PO DAILY [facility] Last Admin: 05/12/17 10:18 Dose: 100 mg Vital Signs - 8 hr 05/12/17 05/12/17 07:26 08:00 Pulse Rate 124 99 Respiratory 16 19 Rate Blood Pressure 152/88 (mmHg) O2 Sat by Pulse 97 97 Oximetry Oxygen Devices in Use Now: None Appearance: NAD. Eyes: No Scleral Icterus, PERRLA Ears/Nose/Mouth/Throat: NL Teeth, Lips, Gums Respiratory: Symmetrical Chest Expansion and Respiratory Effort, Clear to Auscultation Cardiovascular: NL Sounds; No Murmurs; No JVD, RRR Abdominal: NL Sounds; No Tenderness; No Distention, No Hepatosplenomegaly Extremities: No Edema, - - left knee with midline incision, well approximated. no erythema. reduced ROM. right UE edematous 1+ Skin: No Rash or Ulcers, No Nodules or Sclerosis Neurological: - - oriented to name. Thinks 2019 and Dinos Rule. Nutrition: Taking PO's Result Diagrams: 05/12/17 05:47 05/12/17 05:47 Additional Lab and Data: Laboratory Results - last 24 hr 05/12/17 05/12/17 05/12/17 05:47 05:47 05:47 WBC 9.0 RBC 2.41 L Hgb 7.4 L Hct 22 L MCV 92 MCH 31 MCHC 34 RDW 15 Plt Count 350 MPV 7 L Neut % (Auto) 73.5 Lymph % (Auto) 8.9 L [place] % (Auto) 10.4 H Eos % (Auto) 6.8 H Baso % (Auto) 0.4 Absolute Neuts (auto) 6.6 Absolute Lymphs (auto) 0.8 L Absolute Monos (auto) 0.9 H Absolute Eos (auto) 0.6 Absolute Basos (auto) 0 Absolute Nucleated RBC 0 Nucleated RBC % 0 INR (Anticoag Therapy) Sodium 140 Potassium 3.2 L Chloride 107 Carbon Dioxide 23 Anion Gap 10 BUN 14 Creatinine 0.89 Est GFR ( Amer) 107.5 Est GFR (Non-Af Amer) 83.6 BUN/Creatinine Ratio 15.7 Glucose 80 Calcium 7.8 L Magnesium 1.7 L Iron Cancelled TIBC Cancelled % Saturation Cancelled Unsat Iron Binding Cancelled Transferrin Cancelled Ferritin Cancelled Ammonia 19 05/12/17 05/12/17 05:47 14:24 WBC RBC Hgb Hct MCV MCH MCHC RDW Plt Count MPV Neut % (Auto) Lymph % (Auto) [place] % (Auto) Eos % (Auto) Baso % (Auto) Absolute Neuts (auto) Absolute Lymphs (auto) Absolute Monos (auto) Absolute Eos (auto) Absolute Basos (auto) Absolute Nucleated RBC Nucleated RBC % INR (Anticoag Therapy) 1.35 H Sodium Potassium Chloride Carbon Dioxide Anion Gap BUN Creatinine Est GFR ( Amer) Est GFR (Non-Af Amer) BUN/Creatinine Ratio Glucose Calcium Magnesium Iron TIBC 151 L % Saturation Unsat Iron Binding Transferrin 108 L Ferritin 1062.7 H Ammonia Microbiology and Other Data: Microbiology 05/08/17 19:15 Joint Fluid(Synovial) Gram Stain - Final 05/08/17 19:15 Joint Fluid(Synovial) Body Fluid Culture - Final No Growth Day 4 05/08/17 19:15 Joint Fluid(Synovial) Skin and Soft Tissue MRSA/MSSA (PCR - Final Mrsa Negative S.aureus Negative 05/08/17 19:15 Body Fluid Gram Stain - Final 05/08/17 19:15 Body Fluid Body Fluid Culture - Final No Growth Day 4 05/08/17 19:15 Body Fluid Skin and Soft Tissue MRSA/MSSA (PCR - Final Mrsa Negative S.aureus Positive 05/09/17 17:00 Blood Venous Aerobic Blood Culture - Preliminary No Growth Day 2 05/09/17 17:00 Blood Venous Anaerobic Blood Culture - Preliminary No Growth Day 2 05/09/17 17:00 Blood Venous Aerobic Blood Culture - Preliminary No Growth Day 2 05/09/17 17:00 Blood Venous Anaerobic Blood Culture - Preliminary No Growth Day 2 04/23/17 10:30 Misc Source (See Comment) - Other Fungal Culture - Preliminary 04/27/17 08:00 Blood Venous Aerobic Blood Culture - Final No Growth Day 5 04/27/17 08:00 Blood Venous Anaerobic Blood Culture - Final No Growth Day 5 04/27/17 06:10 Blood Venous Aerobic Blood Culture - Final Staphylococcus Epidermidis 04/27/17 06:10 Blood Venous Anaerobic Blood Culture - Final No Growth Day 5 04/27/17 06:10 Blood Venous Blood MRSA/MSSA (PCR) - Final Mrsa Negative S.aureus Negative 04/26/17 21:00 Wound - Wound Anaerobic Culture - Final 04/26/17 21:00 Wound - Wound Skin and Soft Tissue MRSA/MSSA (PCR - Final Mrsa Negative S.aureus Positive 04/26/17 21:00 Wound - Wound Gram Stain - Final 04/26/17 21:00 Wound - Wound Wound Culture - Final Staphylococcus Aureus 04/23/17 15:53 Wound - Knee Left Anaerobic Culture - Final 04/23/17 15:53 Wound - Knee Left Skin and Soft Tissue MRSA/MSSA (PCR - Final Mrsa Negative S.aureus Positive 04/23/17 15:53 Wound - Knee Left Gram Stain - Final 04/23/17 15:53 Wound - Knee Left Wound Culture - Final Staphylococcus Aureus 04/23/17 10:30 Joint Fluid(Synovial) - Knee Left Gram Stain - Final 04/23/17 10:30 Joint Fluid(Synovial) - Knee Left Body Fluid Culture - Final Staphylococcus Aureus 04/23/17 10:30 Joint Fluid(Synovial) - Knee Left Skin and Soft Tissue MRSA/ MSSA (PCR - Final Mrsa Negative S.aureus Positive 04/22/17 16:56 Wound - Abscess Anaerobic Culture - Final 04/22/17 16:56 Wound - Abscess Skin and Soft Tissue MRSA/MSSA (PCR - Final Mrsa Negative S.aureus Positive 04/22/17 16:56 Wound - Abscess Gram Stain - Final 04/22/17 16:56 Wound - Abscess Wound Culture - Final Staphylococcus Aureus 04/22/17 15:00 Wound - Other Anaerobic Culture - Final 04/22/17 15:00 Misc Source (See Comment) - Other Skin and Soft Tissue MRSA/ MSSA (PCR - Final Mrsa Negative S.aureus Positive 04/22/17 15:00 Misc Source (See Comment) - Other Gram Stain - Final 04/22/17 15:00 Misc Source (See Comment) - Other Wound Culture - Final Staphylococcus Aureus 04/21/17 05:40 Blood Venous Aerobic Blood Culture - Final Staphylococcus Aureus 04/21/17 05:40 Blood Venous Anaerobic Blood Culture - Final Staphylococcus Aureus 04/21/17 05:40 Blood Venous Blood MRSA/MSSA (PCR) - Final Mrsa Negative S.aureus Positive 04/21/17 04:40 Blood Venous Aerobic Blood Culture - Final Staphylococcus Aureus 04/21/17 04:40 Blood Venous Anaerobic Blood Culture - Final Staphylococcus Aureus 04/21/17 04:40 Blood Venous Blood MRSA/MSSA (PCR) - Final Mrsa Negative S.aureus Positive 04/22/17 06:20 Nasal Nasal Screen MRSA (PCR)(KEEGAN) - Final Mrsa Not Detected Assess/Plan/Problems-Billing Mr Bonilla is a 76 yo M with h/o HTN, multiple joint replacements, GI bleed (and partial colon resection due to bleed) who presented to the ER with c/o severe back pain and was ultimately found to a very large epidural abscess, R septic shoulder, L septic knee in the setting of MSSA bacteremia. - Patient Problems (1) Encephalopathy Current Visit: Yes Status: Acute Code(s): G93.40 - ENCEPHALOPATHY, UNSPECIFIED SNOMED Code(s): 41417458 Comment: The patient remains encephalopathic though improved from reports. Likely septic encephalopathy from being septic on admission from the numerous infectious sources. ammonia level wnl. Monitor mental status. (2) Epidural abscess Current Visit: Yes Status: Acute Code(s): G06.2 - EXTRADURAL AND SUBDURAL ABSCESS, UNSPECIFIED SNOMED Code(s): 79135980 Comment: The patient presented with a very large epidural abscess. He underwent multilevel skip laminectomies at C6-7, T2, T3, T5, T6, T8, T9, T10, T12, L3, L4, L5 on 04/22/17. Continue rifampin and ancef per Dr. Franklin. getting MRI spine today. May get wound vac. Discussed with Neurosurgery (3) MSSA bacteremia Current Visit: Yes Status: Acute Code(s): R78.81 - BACTEREMIA SNOMED Code( s): 964683619 Comment: The patient was bacteremic from at least 04/21/17. Follow up blood cultures from 05/09/17 are negative so far. Had additional set overnight. Continue rifampin and ancef per Dr. Franklin. The patient has been having intermittent fevers and has a climbing CRP. On CT lumbar spine it appears he a R psoas muscle abscess. Planned drainage with IR on Sunday 05/14 1:30pm (4) Septic arthritis of knee, left Current Visit: Yes Status: Acute Code(s): M00.9 - PYOGENIC ARTHRITIS, UNSPECIFIED SNOMED Code(s): 677753131 Comment: The patient is s/p washout/debridement and liner exchange of the left knee total arthroplasty 04/23/17. Left knee aspiration on 05/08/17 has no growth so far. Continue ancef and rifampin per Dr. Franklin. (5) Septic arthritis of shoulder, right Current Visit: Yes Status: Acute Code(s): M00.9 - PYOGENIC ARTHRITIS, UNSPECIFIED SNOMED Code(s): 82790708 Comment: The patient is s/p washout/debridement of R shoulder 04/26/17. Dr. Galan has considered taking the patient back to the OR for repeat washout of the shoulder but is currently holding on this. Aspiration of the R shoulder 05/08 has no growth though the PCR is positive for MSSA. Continue ancef and rifampin. (6) DVT prophylaxis Current Visit: Yes Status: Acute Code(s): QQK2116 - SNOMED Code(s): 640233094 Comment: SQ heparin (7) Gout Current Visit: Yes Status: Acute Code(s): M10.9 - GOUT, UNSPECIFIED SNOMED Code(s): 94498044 Comment: allopurinol (8) Anemia Current Visit: Yes Status: Acute Code(s): D64.9 - ANEMIA, UNSPECIFIED SNOMED Code(s): 253978139 Comment: add iron panel and ferritin. Status and Disposition: medicine inpatient.
[2017-05-12] MEDS: LORazepam INJ* 2 MG/ML 1 ML VIAL IV PUSH PRN (14:35)
[2017-05-12] MEDS ORDERED: LORazepam INJ* 2 MG/ML 1 ML VIAL IV PUSH ONE (15:27)
[2017-05-12] MEDS ORDERED: Haloperidol INJ IV/IM* 5 MG/ML AMP IM ONE (15:28)
[2017-05-12] MEDS ORDERED: Gadoteridol* (CONTRAST) 279.3 MG/ML 10 ML IV ONE (16:23)
--- NOTE | 2017-05-12 16:48 | PN ---
Progress Note - Progress Note Date of Service: 05/12/17 Note: Patient at MRI at times of rounds. Armond Melendrez MD
--- NOTE | 2017-05-12 17:04 | RAD ---
HISTORY: Fluid collections noted on CT, history of septic arthritis and infection and spine, rule out spinal abscess COMPARISONS: April 22, 2017, CT dated 05/10/2017 TECHNIQUE: The following sequences were obtained of the cervical, thoracic, and lumbar spine: Sagittal and axial T1 and T2-weighted images, sagittal inversion recovery images, coronal T2-weighted images, sagittal and axial T1-weighted images after contrast enhancement with gadolinium based intravenous contrast agent.. FINDINGS: Evaluation is limited by extensive patient motion artifact. BRAIN AND SPINAL CORD: The visualized spinal cord, conus, and cauda equina are normal in caliber, position, and signal intensity. There is no appreciable epidural fluid collection.. ALIGNMENT: The alignment is normal. VERTEBRAL BODIES: There is multilevel anterolateral marginal osteophyte formation. There is post surgical change to the lamina along the lower lumbar spine. JOINTS: There is no appreciable subluxation or dislocation. There is enhancement along the facet joints of the lower lumbar spine.. MUSCULATURE: Unremarkable INTERVERTEBRAL DISCS: There is diffuse loss of intervertebral disc height and T2 signal throughout the spine. SOFT TISSUES: There is a loculated fluid collection extending along the spinous processes from approximately C6 through the thoracolumbar junction OTHER: None. IMPRESSION: 1. LIMITED STUDY. 2. THERE IS NO APPRECIABLE EPIDURAL FLUID COLLECTION. 3. NOTED ON CT, THERE IS A PERIPHERALLY ENHANCING LOCULATED FLUID COLLECTION EXTENDING ALONG THE SPINOUS PROCESSES FROM THE LOWER CERVICAL SPINE INFERIORLY THROUGH THE THORACOLUMBAR JUNCTION, WELL ENHANCEMENT AND POST SURGICAL CHANGE TO THE FACET JOINTS ALONG THE LOWER LUMBAR SPINE. THE DIFFERENTIAL INCLUDES POSTSURGICAL SEROMA, ABSCESS, OR PSEUDOMENINGOCELE.
--- NOTE | 2017-05-12 17:17 | PN ---
Progress Note - Progress Note Date of Service: 05/12/17 SOAP: Subjective: []Reported episode of fever ON. BC sent. On TF. On Abx IV. No drainage from wound. Just returned from MRI. Received Ativan, still lethargic. Objective: [] VSS Afebrile Wound s,c,d, minimal dry discharge on dressing mid thoracic, lower lumbar. No redness, No active drainage, even to pressure. Opens eyes to pain, RADHA, Some words. Nichole spontaneously Withraws to pain with all extremities. Assessment: []76 yom POD#19 multilevel laminectomies for holospinal epidural abscess Plan: []Monitor VS, Neurochecks. Monitor wound. Wound dressing changes daily. Possibly wound vac tomorrow. Visited patient with Dr Hassan earlier today while patient in MRI. May consider I&D if drainage persists. Will review MRI of C/T/L spine when images available. IR drainage of Rt psoas abscess scheduled. Monitor labs. Keep sutures for 6 weeks. PT/OT when able to participate. Abx per ID Appreciate ID, IM, Orthopedic care. Armond Melendrez MD
[2017-05-12] MEDS ORDERED: Flumazenil* 0.1 MG/ML 5 ML MDV IV ONE ×2 (17:34→17:59)
[2017-05-12] MEDS: Atorvastatin* 20 MG TAB PO SCH (18:14)
[2017-05-12] MEDS: Acetaminophen TAB* 325 MG PO PRN (23:42)
[2017-05-12] MEDS: oxyCODONE TAB* 5 MG TAB PO PRN (23:44)
[2017-05-13] MEDS: ceFAZolin 2 GM/20 ML SYRINGE IVPB Q8H IVPB SCH ×6 (01:22→16:40)
[2017-05-13] MEDS: Heparin VIAL(*) 5000 UNITS/ML VIAL (FIVE THOUSAND) SUBCUT SCH ×3 (05:43→20:26)
[2017-05-13 08:52] LABS: ABS Basophils 0.1 10^3/ul (0-0.2); ABS Eosinophils 0.8 10^3/ul (0-0.6); ABS Lymphocytes 0.8 10^3/ul (1.0-4.8); ABS Monocytes 0.9 10^3/ul (0-0.8); ABS Neutrophils 5.6 10^3/ul (1.5-7.7); ABS Nucleated RBC 0 10^3/ul; Eosinophil % 9.3 % (0-6); Hematocrit 22 % (42-52); Hemoglobin 7.4 g/dl (14.0-18.0); Lymphocyte % 10.2 % (25-47); Mean Corpuscular HGB Conc 34 g/dl (31-36); Mean Corpuscular Hemoglobin 31 pg (27-31); Mean Corpuscular Volume 92 fL (80-94); Mean Platelet Volume 7.3 um3 (7.4-10.4); Nucleated Red Blood Cells % 0; Platelet Count 338 10^3/ul (150-450); Red Blood Count 2.38 10^6/ul (4.0-5.4); Red Cell Distribution Width 16 % (10.5-15); White Blood Count 8.2 10^3/ul (3.5-10.8)
[2017-05-13 09:09] LABS: EGFR Non-African American 88.1 (>60)
--- NOTE | 2017-05-13 09:33 | PN ---
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 Denies pain, fever, rash, or diarrhea. No fever 48 hours. Working with PT. Objective: Vital Signs Temp 36.3 C 05/13/17 03:26 Pulse 74 05/13/17 03:53 Resp 16 05/13/17 03:26 BP 159/68 05/13/17 03:53 Pulse Ox 99 05/13/17 03:53 Intake & Output 05/12/17 05/13/17 05/13/17 18:59 06:59 18:59 Intake Total 230 820 Output Total 600 1100 Balance -370 -280 Intake: IV Fluids 30 ABX - CEFAZOLIN 20 NS (0.9%) 10 IVPB 310 ABX - CEFAZOLIN 40 rifampin 270 Oral 230 480 Output: Urine 200 [place] 600 900 Gen:no distress Neuro: awake, answers questions, moves all extremities HEENT:PERRL, MMD Heart:RRR no murmur Lungs:clear to auscultation Abd:+ BS NTND soft Skin: no rash; spine incision intact MSK: L knee no effusion, mild edema, incision intact; R shoulder mild warmth no effusion; no hip pain with log roll Assessment: 1. MSSA bacteremia, cleared. TTE 04/22 no vegetation or regurgitant valve lesion , no peripheral stigmta of IE, will be on long course IV antibiotics so does need MIRLADNE 2. MSSA epidural abscess s/p I&D; psoas abscess on CT, unchanged in size. Also a collection along spinous process on MRI ?abscess vs seroma 4. 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 MSSA septic right shoulder s/p I&D 6. presence bilateral hip arthroplasties 7. Elevated CRP Plan: 1. 2 gm IV Q8hrs day of IV ancef/rifampin 2. IR aspiration/drain of psoas collection pending
[2017-05-13] MEDS: Potassium Chloride LIQUID* 20 MEQ PACKET PO SCH ×3 (09:53→20:26)
[2017-05-13] MEDS: Thiamine TAB* 100 MG TAB PO SCH (09:54)
[2017-05-13] MEDS: Multivitamins ADULT w/MIN LIQ* 15 ML UDC PO SCH (09:54)
[2017-05-13] MEDS: CMCS: Nebivolol TAB (NF) 2.5 MG TAB PO SCH (09:54)
[2017-05-13] MEDS: Allopurinol TAB* 100 MG PO SCH (09:55)
[2017-05-13] MEDS: RiFAMPin IV* 600 MG in NS 0.9% 250 ML* 250 ML IVPB SCH (10:47)
--- NOTE | 2017-05-13 13:31 | PN ---
Progress Note - Progress Note Date of Service: 05/13/17 SOAP: Subjective: [] No event ON. On TF. On Abx IV. No drainage from wound. Received reversal of sedation yesterday. Scheduled for IR in am. MRI revealed resolution of epidural abscess. Exam limited because of motion artifact. Small paraspinal collection upper thoracic spine. No definite abscess. Discussed in extend findings with patient's daughter and offered the option of aspiration of paraspinal collection. Daughter understood risks and benefits of procedure and after communicating with her mother agreed to proceed with tap. IC was obtained. Objective: [] VSS Afebrile Wound s,c,d, minimal dry discharge on dressing lower lumbar. No redness, No active drainage, even to pressure. AAOx2, RADHA, Face symmetric, tongue midline. Nichole spontaneously, Follows command. 4-5/5 Motor strength bilateral hand city manager, Mick feet DF,PF. Can bend both knees 3-4/5, Exam limited due to mental status, previous surgical interventions. Sensory grossly intact to light touch. After appropriate patient identification and surgical pause, aspiration of paraspinal fluid was attempted. No return in the paracentesis. Patient tolerated procedure well. Dressing was changed. Assessment: []76 yom POD#20 multilevel laminectomies for holospinal epidural abscess Plan: [] ]Monitor VS, Neurochecks. Monitor wound. Wound dressing changes daily. Possibly wound vac tomorrow. May consider I&D if drainage persists. IR drainage of Rt psoas abscess scheduled. Discussed with Dr Phoenix regarding possible aspiration of paraspinal collection in IR tomorrow. Will obtain US of soft tissue for evaluation of collection and planning. Monitor labs. Keep sutures for 6 weeks. PT/OT when able to participate. Abx per ID Appreciate ID, IM, Orthopedic care. Discussed in extend with patient's daughter regarding patient's condition and MRI findings. WBC low. No obvious wound infection. Low possibility for paraspinal abscess in upper thoracic spine. Discussed option of surgical intervention for wound I&D. Given the above, we agreed to attempt IR aspiration of collection, if possible, and monitoring wound and possible wound vac. Daughter understands risks and benefits of all approaches. Armond Melendrez MD
[2017-05-13] MEDS ORDERED: Magnesium Sulfate 2 GM IV* 2 GM/50 ML BAG IVPB ONE (13:47)
--- NOTE | 2017-05-13 15:08 | RAD ---
CLINICAL HISTORY: Sepsis, low back pain, elevated LFTs, psoas abscess COMPARISON: November 02, 2006, CT of the spine dated May 10, 2017 TECHNIQUE: Multiple contiguous axial CT scans were obtained of the abdomen and pelvis, without intravenous contrast enhancement. Coronal and sagittal multiplanar reformations are submitted for review. Oral contrast was not administered. FINDINGS: The study is limited by the lack of intravenous contrast. This limits evaluation of the solid organs and vasculature. Evaluation is limited by patient motion artifact. LUNG BASES: There are moderate bilateral pleural effusions. LIVER: The liver is normal in shape, size, contour, and attenuation. BILE DUCTS: There is no intrahepatic or extrahepatic biliary dilatation. GALLBLADDER: The gallbladder is not visualized. Surgical clips are noted in the gallbladder fossa. PANCREAS: The pancreas is normal, without mass or ductal dilatation. SPLEEN: Normal in size and appearance. UPPER GI TRACT: Evaluation of the gastrointestinal tract is limited by incomplete gastric distention. The upper GI tract is unremarkable. SMALL BOWEL AND MESENTERY: The small bowel is normal in contour, course, and caliber. There is no obstruction or dilatation. COLON: There are multiple diverticula of the sigmoid colon. There is no pericolonic inflammatory change. There is post surgical change to the colon. ADRENALS: Normal bilaterally. KIDNEYS: The kidneys are normal in shape, size, contour, and axis. There is no hydronephrosis or nephrolithiasis. BLADDER: The bladder is collapsed rounded Hackett catheter. Evaluation is also limited by extensive streak artifact from bilateral hip arthroplasty. PELVIC ORGANS: Evaluation of the pelvic organs is limited by extensive streak artifact from bilateral hip arthroplasty. AORTA: There is calcific atherosclerotic disease of the abdominal aorta and its branches, without aneurysmal dilatation IVC: Unremarkable LYMPH NODES: There is a 3.5 x 2.6 x 3 cm low-attenuation lesion along the right iliac chain medial to the iliopsoas muscle best seen on axial image 66. A second low-attenuation lesion is noted posterior to the psoas muscle on axial image 55 measuring 1.5 x 1.3 cm transversely. The differential includes a enlarged right iliac chain lymph node versus psoas abscess. Elsewhere, there is no lymphadenopathy by size criteria. ABDOMINAL WALL: There are bilateral fat-containing inguinal hernias. BONES AND SOFT TISSUES: The patient is status post multilevel laminectomy along the lower lumbar spine. Again noted is a fluid collection along the spinous processes of the thoracic spine. There are rounded low-attenuation lesions medial to the right psoas muscle which may correspond to the psoas abscesses noted on the previous examination as described above, measuring up to 3.5 cm in size. OTHER: None IMPRESSION: 1. LIMITED STUDY. 2. THERE ARE ROUNDED LOW-ATTENUATION LESIONS POSTERIOR MEDIAL TO THE ILIOPSOAS MUSCLE ON THE RIGHT, THE LARGEST MEASURING UP TO 3.5 CM IN SIZE. THESE APPEAR TO CORRESPOND TO THE PARASPINAL ABSCESSES NOTED ON THE PREVIOUS CT OF THE SPINE, THOUGH ENLARGED ILIAC CHAIN LYMPH NODES ARE ALSO WITHIN THE DIFFERENTIAL. 3. AGAIN NOTED IS A LOCULATED FLUID COLLECTION ALONG THE SPINOUS PROCESSES OF THE THORACIC SPINE DESCRIBED IN THE PREVIOUS CT EXAMINATION. 4. BILATERAL PLEURAL EFFUSIONS. 5. ATHEROSCLEROSIS. 6. DIVERTICULOSIS.
--- NOTE | 2017-05-13 15:38 | PN ---
Progress Note - Progress Note Date of Service: 05/13/17 SOAP: Subjective: []Patient seen at bedside. He denies any pain currently. Objective: []General: Sitting up at bedside, nursing changing back dressing. NAD. Able to carry on appropriate conversation RUE: - shoulder incisions CDI without erythema or discharge - PROM forward flexion to 90 degrees LLE: - Knee with trace effusion - Knee incision c/d/i without erythema or discharge - PROM 0-30 Vital Signs Temp 98.3 F 05/13/17 07:52 Pulse 77 05/13/17 07:52 Resp 18 05/13/17 07:52 BP 151/74 05/13/17 07:52 Pulse Ox 98 05/13/17 07:52 Intake & Output 05/12/17 05/13/17 05/13/17 18:59 06:59 18:59 Intake Total 230 820 240 Output Total 600 1100 450 Balance -370 -280 -210 Intake: IV Fluids 30 ABX - CEFAZOLIN 20 NS (0.9%) 10 IVPB 310 ABX - CEFAZOLIN 40 rifampin 270 Oral 230 480 240 Output: Urine 200 Hackett 600 900 450 Laboratory Last Values WBC 8.2 10^3/ul (3.5-10.8) 05/13/17 08:26 RBC 2.38 10^6/ul (4.0-5.4) L 05/13/17 08:26 Hgb 7.4 g/dl (14.0-18.0) L 05/13/17 08:26 Hct 22 % (42-52) L 05/13/17 08:26 MCV 92 fL (80-94) 05/13/17 08:26 MCH 31 pg (27-31) 05/13/17 08:26 MCHC 34 g/dl (31-36) 05/13/17 08:26 RDW 16 % (10.5-15) H 05/13/17 08:26 Plt Count 338 10^3/ul (150-450) 05/13/17 08:26 MPV 7.3 um3 (7.4-10.4) L 05/13/17 08:26 Neut % (Auto) 68.5 % (38-83) 05/13/17 08:26 Lymph % (Auto) 10.2 % (25-47) L 05/13/17 08:26 [place] % (Auto) 11.4 % (0-7) H 05/13/17 08:26 Eos % (Auto) 9.3 % (0-6) H 05/13/17 08:26 Baso % (Auto) 0.6 % (0-2) 05/13/17 08:26 Absolute Neuts (auto) 5.6 10^3/ul (1.5-7.7) 05/13/17 08:26 Absolute Lymphs (auto) 0.8 10^3/ul (1.0-4.8) L 05/13/17 08:26 Absolute Monos (auto) 0.9 10^3/ul (0-0.8) H 05/13/17 08:26 Absolute Eos (auto) 0.8 10^3/ul (0-0.6) H 05/13/17 08:26 Absolute Basos (auto) 0.1 10^3/ul (0-0.2) 05/13/17 08:26 Absolute Nucleated RBC 0 10^3/ul 05/13/17 08:26 Immature Gran % 2 % (0-9) 04/30/17 05:38 Neutrophils % 89 % (38-83) H 04/30/17 05:38 Band Neutrophils % 1 % (0-8) 04/30/17 05:38 Lymphocytes % 3 % (25-47) L 04/30/17 05:38 Monocytes % 4 % (0-7) 04/30/17 05:38 Eosinophils % 1 % (0-6) 04/30/17 05:38 Basophils % 1 % (0-2) 04/30/17 05:38 Metamyelocytes % 1 % (0-2) 04/30/17 05:38 Nucleated RBC % 0 05/13/17 08:26 Abs Neuts (Manual) 15.4 10^3/ul (1.5-7.7) H 04/30/17 05:38 Abs Monocytes (Manual) 0.7 10^3/ul (0-0.8) 04/30/17 05:38 Absolute Eos (Manual) 0.2 10^3/ul (0-0.6) 04/30/17 05:38 Abs Basophils (Manual) 0.2 10^3/ul (0-0.2) 04/30/17 05:38 Normal RBC Morphology Normal (Normal) 04/30/17 05:38 INR (Anticoag Therapy) 1.35 (0.77-1.02) H 05/12/17 05:47 APTT 35.6 seconds (26.0-36.3) 04/23/17 00:48 Patient Temperature Not Reportable 04/23/17 00:48 ABG pH 7.44 (7.35-7.45) 04/23/17 00:48 ABG pH (Temp Correct) Not Reportable 04/23/17 00:48 ABG pCO2 31 mmHg (35-45) L 04/23/17 00:48 ABG pCO2 (Temp Corrct Not Reportable 04/23/17 00:48 ABG pO2 128 mmHg (80-100) H 04/23/17 00:48 ABG pO2 (Temp Correct Not Reportable 04/23/17 00:48 ABG HCO3 23.0 mmol/L (19-31) 04/23/17 00:48 ABG O2 Saturation 99.2 % (95-98) H 04/23/17 00:48 ABG Base Excess -2.5 (-2.0-2.0) L 04/23/17 00:48 Respiration Rate 14 04/23/17 00:48 O2 Delivery Device ventilator 04/23/17 00:48 Ventilator Type 600 03 00:48 Vent Mode apv 04/23/17 00:48 FiO2 50 04/23/17 00:48 Inspiratory Time 1.0 04/23/17 00:48 PEEP 5 04/23/17 00:48 Pressure Support Not Reportable 04/23/17 00:48 Pressure Control Not Reportable 04/23/17 00:48 EPAP Not Reportable 04/23/17 00:48 IPAP Not Reportable 04/23/17 00:48 BiPAP Not Reportable 04/23/17 00:48 Sodium 141 mmol/L (133-145) 05/13/17 08:26 Potassium 3.2 mmol/L (3.5-5.0) L 05/13/17 08:26 Chloride 108 mmol/L (101-111) 05/13/17 08:26 Carbon Dioxide 25 mmol/L (22-32) 05/13/17 08:26 Anion Gap 8 mmol/L (2-11) 05/13/17 08:26 BUN 13 mg/dL (6-24) 05/13/17 08:26 Creatinine 0.85 mg/dL (0.67-1.17) 05/13/17 08:26 Est GFR ( Amer) 113.3 (>60) 05/13/17 08:26 Est GFR (Non-Af Amer) 88.1 (>60) 05/13/17 08:26 BUN/Creatinine Ratio 15.3 (8-20) 05/13/17 08:26 Glucose 83 mg/dL (70-100) 05/13/17 08:26 Lactic Acid 1.1 mmol/L (0.5-2.0) 04/21/17 08:43 Calcium 7.9 mg/dL (8.6-10.3) L 05/13/17 08:26 Phosphorus 4.3 mg/dL (2.5-5.0) 05/06/17 05:05 Magnesium 1.8 mg/dL (1.9-2.7) L 05/13/17 08:26 Iron < 15 ug/dL (50-212) L 05/12/17 14:24 TIBC 151 mcg/dL (250-450) L 05/12/17 14:24 % Saturation 10 % (15-55) L 05/12/17 14:24 Unsat Iron Binding 136.66236 ug/dL 05/12/17 14:24 Transferrin 108 mg/dL (203-362) L 05/12/17 14:24 Ferritin 1062.7 ng/mL (24-336) H 05/12/17 14:24 Total Bilirubin 0.70 mg/dL (0.2-1.0) 05/03/17 05:05 AST 27 U/L (13-39) 05/03/17 05:05 ALT 22 U/L (7-52) 05/03/17 05:05 Alkaline Phosphatase 95 U/L (34-104) 05/03/17 05:05 Ammonia 19 mol/L (16-53) 05/12/17 05:47 Troponin I 0.03 ng/mL (<0.04) 04/21/17 04:40 C-Reactive Protein 106.31 mg/L (< 5.00) H 05/13/17 05:30 Total Protein 5.4 g/dL (6.4-8.9) L 05/03/17 05:05 Albumin 2.1 g/dL (3.2-5.2) L 05/11/17 05:30 Globulin 3.4 g/dL (2-4) 05/03/17 05:05 Albumin/Globulin Ratio 0.6 (1-3) L 05/03/17 05:05 Prealbumin 6 mg/dL (18-38) L 05/11/17 05:30 Lipase 28 U/L (11.0-82.0) 04/21/17 04:40 Fluid Source Synovial fluid 05/08/17 19:15 Fluid Volume 20 mL 05/08/17 19:15 Fluid Color Red 05/08/17 19:15 Fluid Appearance Bloody 05/08/17 19:15 Fluid WBC 8676 /mcL (0-321402) 05/08/17 19:15 Fluid RBC 57592 /mcL 05/08/17 19:15 Fluid Tot Cell Count 100 05/08/17 19:15 Fluid Neutrophils 93 % 05/08/17 19:15 Fluid Band Neutrophils 3 % 05/08/17 19:15 Fluid Lymphocytes 3 % 05/08/17 19:15 Fluid Monocytes 1 % 05/08/17 19:15 Fluid Other Cells 1 04/23/17 10:30 Fluid Cell Count Rvw By 05/08/17 19:15 Fluid Crystals None seen (None Seen) 05/08/17 19:15 Fluid Total Protein 3.1 g/dL 04/23/17 10:30 Blood Type O Positive 05/06/17 05:05 Antibody Screen Negative 05/06/17 05:05 Crossmatch See Detail 05/06/17 05:05 Assessment: POD 20 open I&D left knee, e/o liner POD 17 arthroscopic I&D right shoulder Plan: Continue IV abx CRP every other day IR drainage of psoas abscess Wednesday Per Dr. Galan If patient continues to have pain with limited movement of right shoulder and left knee and has persistent fevers, elevated CRP, will continue to consider repeat I&D. Possible we could combine cases if neurosurgery does a repeat I&D to lessen the burden of general anesthesia.
--- NOTE | 2017-05-13 15:47 | PN ---
Subjective Date of Service: 05/13/17 Interval History: got flumazenil 0.2mg twice yesterday after MRI scan (after total 2.5mg ativan for sedation as initially very agitated in MRI) with good response Pt more alert and oriented to today, especially in AM no fluid with needle aspirate collected at bedside with Neurosurgery. Eating more, muffin and Ensure. Hx of scratching at lesion near right religion (per Daughter). Tmax 99.2 last night. did get 650mg tylenol right after that Objective Active Medications: Acetaminophen (Tylenol Tab*) 650 mg PO Q4H PRN PRN Reason: FEVER Last Admin: 05/12/17 23:42 Dose: 650 mg Allopurinol (Zyloprim Tab*) 100 mg PO QAM [facility] Last Admin: 05/13/17 09:55 Dose: 100 mg Atorvastatin Calcium (Lipitor*) 20 mg PO 1700 [facility] Last Admin: 05/12/17 18:14 Dose: 20 mg Heparin Sodium (Porcine) (Heparin Vial(*)) 5,000 units SUBCUT Q8HR [facility] Last Admin: 05/13/17 14:55 Dose: 5,000 units Heparin Sodium (Porcine) (Heparin Flush Picc/Ml/Cvc(*)) 0 ml FLUSH 0600,1800 MIKE PRN Reason: Protocol Last Admin: 05/13/17 05:32 Dose: 3 ml Cefazolin Sodium 2 gm/ Sterile (Water) 20 mls @ 60 mls/hr IVPB Q8H [facility] Last Admin: 05/13/17 10:18 Dose: 60 mls/hr Rifampin 600 mg/ Sodium (Chloride) 260 mls @ 130 mls/hr IVPB Q24HR [facility] Last Admin: 05/13/17 10:47 Dose: 130 mls/hr Lorazepam (Ativan Inj*) 0.5 mg IV PUSH Q4H PRN PRN Reason: ANXIETY Last Admin: 05/12/17 14:35 Dose: 0.5 mg Multivitamins (Theragran W/Minerals Liq*) 15 ml PO DAILY [facility] Last Admin: 05/13/17 09:54 Dose: 15 ml Nebivolol (Bystolic Tab (Nf)) 10 mg PO QAM [facility] Last Admin: 05/13/17 09:54 Dose: 10 mg Ondansetron HCl (Zofran Inj*) 4 mg IV Q6H PRN PRN Reason: NAUSEA/VOMITING Last Admin: 05/09/17 16:12 Dose: 4 mg Oxycodone HCl (Roxycodone Tab*) 5 mg PO Q4H PRN PRN Reason: PAIN Last Admin: 05/12/17 23:44 Dose: 5 mg Potassium Chloride (Klor-Con Liquid*) 20 meq PO TID [facility] Last Admin: 05/13/17 14:55 Dose: 20 meq Thiamine HCl (Vitamin B-1 Tab*) 100 mg PO DAILY [facility] Last Admin: 05/13/17 09:54 Dose: 100 mg Vital Signs - 8 hr 05/13/17 07:52 Temperature 98.3 F Pulse Rate 77 Respiratory 18 Rate Blood Pressure 151/74 (mmHg) O2 Sat by Pulse 98 Oximetry Oxygen Devices in Use Now: None Appearance: NAD, more alert. Eyes: No Scleral Icterus, PERRLA Ears/Nose/Mouth/Throat: NL Teeth, Lips, Gums Neck: NL Appearance and Movements; NL JVP Respiratory: Symmetrical Chest Expansion and Respiratory Effort, - - reduced at b/l bases. no wheezing or rhonchi or rales. Cardiovascular: NL Sounds; No Murmurs; No JVD, RRR Abdominal: NL Sounds; No Tenderness; No Distention, No Hepatosplenomegaly Extremities: No Edema Skin: No Rash or Ulcers Neurological: - - oriented to name. Thinks 2027. thinks in home town. Nutrition: Taking PO's Result Diagrams: 05/13/17 08:26 05/13/17 08:26 Additional Lab and Data: Laboratory Results - last 24 hr 05/12/17 05/13/17 05/13/17 14:24 05:30 08:26 WBC 8.2 RBC 2.38 L Hgb 7.4 L Hct 22 L MCV 92 MCH 31 MCHC 34 RDW 16 H Plt Count 338 MPV 7.3 L Neut % (Auto) 68.5 Lymph % (Auto) 10.2 L [place] % (Auto) 11.4 H Eos % (Auto) 9.3 H Baso % (Auto) 0.6 Absolute Neuts (auto) 5.6 Absolute Lymphs (auto) 0.8 L Absolute Monos (auto) 0.9 H Absolute Eos (auto) 0.8 H Absolute Basos (auto) 0.1 Absolute Nucleated RBC 0 Nucleated RBC % 0 Sodium Potassium Chloride Carbon Dioxide Anion Gap BUN Creatinine Est GFR ( Amer) Est GFR (Non-Af Amer) BUN/Creatinine Ratio Glucose Calcium Magnesium Iron < 15 L % Saturation 10 L Unsat Iron Binding 136.37942 C-Reactive Protein 106.31 H 05/13/17 08:26 WBC RBC Hgb Hct MCV MCH MCHC RDW Plt Count MPV Neut % (Auto) Lymph % (Auto) [place] % (Auto) Eos % (Auto) Baso % (Auto) Absolute Neuts (auto) Absolute Lymphs (auto) Absolute Monos (auto) Absolute Eos (auto) Absolute Basos (auto) Absolute Nucleated RBC Nucleated RBC % Sodium 141 Potassium 3.2 L Chloride 108 Carbon Dioxide 25 Anion Gap 8 BUN 13 Creatinine 0.85 Est GFR ( Amer) 113.3 Est GFR (Non-Af Amer) 88.1 BUN/Creatinine Ratio 15.3 Glucose 83 Calcium 7.9 L Magnesium 1.8 L Iron % Saturation Unsat Iron Binding C-Reactive Protein Microbiology and Other Data: Microbiology 05/12/17 01:30 Blood Venous Aerobic Blood Culture - Preliminary No Growth Day 1 05/12/17 01:30 Blood Venous Anaerobic Blood Culture - Preliminary No Growth Day 1 05/12/17 01:30 Blood Venous Aerobic Blood Culture - Preliminary No Growth Day 1 05/12/17 01:30 Blood Venous Anaerobic Blood Culture - Preliminary No Growth Day 1 05/12/17 00:48 Blood Venous Aerobic Blood Culture - Preliminary No Growth Day 1 05/12/17 00:48 Blood Venous Anaerobic Blood Culture - Preliminary No Growth Day 1 05/09/17 17:00 Blood Venous Aerobic Blood Culture - Preliminary No Growth Day 3 05/09/17 17:00 Blood Venous Anaerobic Blood Culture - Preliminary No Growth Day 3 05/09/17 17:00 Blood Venous Aerobic Blood Culture - Preliminary No Growth Day 3 05/09/17 17:00 Blood Venous Anaerobic Blood Culture - Preliminary No Growth Day 3 05/08/17 19:15 Joint Fluid(Synovial) Gram Stain - Final 05/08/17 19:15 Joint Fluid(Synovial) Body Fluid Culture - Final No Growth Day 4 05/08/17 19:15 Joint Fluid(Synovial) Skin and Soft Tissue MRSA/MSSA (PCR - Final Mrsa Negative S.aureus Negative 05/08/17 19:15 Body Fluid Gram Stain - Final 05/08/17 19:15 Body Fluid Body Fluid Culture - Final No Growth Day 4 05/08/17 19:15 Body Fluid Skin and Soft Tissue MRSA/MSSA (PCR - Final Mrsa Negative S.aureus Positive 04/23/17 10:30 Misc Source (See Comment) - Other Fungal Culture - Preliminary 04/27/17 08:00 Blood Venous Aerobic Blood Culture - Final No Growth Day 5 04/27/17 08:00 Blood Venous Anaerobic Blood Culture - Final No Growth Day 5 04/27/17 06:10 Blood Venous Aerobic Blood Culture - Final Staphylococcus Epidermidis 04/27/17 06:10 Blood Venous Anaerobic Blood Culture - Final No Growth Day 5 04/27/17 06:10 Blood Venous Blood MRSA/MSSA (PCR) - Final Mrsa Negative S.aureus Negative 04/26/17 21:00 Wound - Wound Anaerobic Culture - Final 04/26/17 21:00 Wound - Wound Skin and Soft Tissue MRSA/MSSA (PCR - Final Mrsa Negative S.aureus Positive 04/26/17 21:00 Wound - Wound Gram Stain - Final 04/26/17 21:00 Wound - Wound Wound Culture - Final Staphylococcus Aureus 04/23/17 15:53 Wound - Knee Left Anaerobic Culture - Final 04/23/17 15:53 Wound - Knee Left Skin and Soft Tissue MRSA/MSSA (PCR - Final Mrsa Negative S.aureus Positive 04/23/17 15:53 Wound - Knee Left Gram Stain - Final 04/23/17 15:53 Wound - Knee Left Wound Culture - Final Staphylococcus Aureus 04/23/17 10:30 Joint Fluid(Synovial) - Knee Left Gram Stain - Final 04/23/17 10:30 Joint Fluid(Synovial) - Knee Left Body Fluid Culture - Final Staphylococcus Aureus 04/23/17 10:30 Joint Fluid(Synovial) - Knee Left Skin and Soft Tissue MRSA/ MSSA (PCR - Final Mrsa Negative S.aureus Positive 04/22/17 16:56 Wound - Abscess Anaerobic Culture - Final 04/22/17 16:56 Wound - Abscess Skin and Soft Tissue MRSA/MSSA (PCR - Final Mrsa Negative S.aureus Positive 04/22/17 16:56 Wound - Abscess Gram Stain - Final 04/22/17 16:56 Wound - Abscess Wound Culture - Final Staphylococcus Aureus 04/22/17 15:00 Wound - Other Anaerobic Culture - Final 04/22/17 15:00 Misc Source (See Comment) - Other Skin and Soft Tissue MRSA/ MSSA (PCR - Final Mrsa Negative S.aureus Positive 04/22/17 15:00 Misc Source (See Comment) - Other Gram Stain - Final 04/22/17 15:00 Misc Source (See Comment) - Other Wound Culture - Final Staphylococcus Aureus 04/21/17 05:40 Blood Venous Aerobic Blood Culture - Final Staphylococcus Aureus 04/21/17 05:40 Blood Venous Anaerobic Blood Culture - Final Staphylococcus Aureus 04/21/17 05:40 Blood Venous Blood MRSA/MSSA (PCR) - Final Mrsa Negative S.aureus Positive 04/21/17 04:40 Blood Venous Aerobic Blood Culture - Final Staphylococcus Aureus 04/21/17 04:40 Blood Venous Anaerobic Blood Culture - Final Staphylococcus Aureus 04/21/17 04:40 Blood Venous Blood MRSA/MSSA (PCR) - Final Mrsa Negative S.aureus Positive 04/22/17 06:20 Nasal Nasal Screen MRSA (PCR)(KEEGAN) - Final Mrsa Not Detected Assess/Plan/Problems-Billing Mr Bonilla is a 76 yo M with h/o HTN, multiple joint replacements, GI bleed (and partial colon resection due to bleed) who presented to the ER with c/o severe back pain and was ultimately found to a very large epidural abscess, R septic shoulder, L septic knee in the setting of MSSA bacteremia. - Patient Problems (1) Encephalopathy Current Visit: Yes Status: Acute Code(s): G93.40 - ENCEPHALOPATHY, UNSPECIFIED SNOMED Code(s): 35143775 Comment: Improving each day. Likely septic encephalopathy from being septic on admission from the numerous infectious sources. ammonia level wnl. Monitor mental status. Could consider LP if progress halts. (2) Epidural abscess Current Visit: Yes Status: Acute Code(s): G06.2 - EXTRADURAL AND SUBDURAL ABSCESS, UNSPECIFIED SNOMED Code(s): 77216465 Comment: The patient presented with a very large epidural abscess. He underwent multilevel skip laminectomies at C6-7, T2, T3, T5, T6, T8, T9, T10, T12, L3, L4, L5 on 04/22/17. Continue rifampin and ancef per Dr. Franklin. appreciate Neurosurgery recs. no fluid on needle drainage today. May be seroma on recent MRI and CT imaging from lower cervical to thoracolumbar junction. May get IR drainage attempt tomorrow. (3) MSSA bacteremia Current Visit: Yes Status: Acute Code(s): R78.81 - BACTEREMIA SNOMED Code( s): 918629191 Comment: The patient was bacteremic from at least 04/21/17. Follow up blood cultures from 05/09/17 are negative so far. Had additional set 05/11 PM NGTDD . Continue rifampin and ancef per Dr. Franklin. The patient has been having intermittent fevers and has a climbing CRP. On CT lumbar spine it appears he a R psoas muscle abscess. Planned drainage with IR on Sunday 05/14 1:30pm (4) Septic arthritis of knee, left Current Visit: Yes Status: Acute Code(s): M00.9 - PYOGENIC ARTHRITIS, UNSPECIFIED SNOMED Code(s): 658969675 Comment: The patient is s/p washout/debridement and liner exchange of the left knee total arthroplasty 04/23/17. Left knee aspiration on 05/08/17 has no growth so far. Continue ancef and rifampin per Dr. Franklin. (5) Septic arthritis of shoulder, right Current Visit: Yes Status: Acute Code(s): M00.9 - PYOGENIC ARTHRITIS, UNSPECIFIED SNOMED Code(s): 88496925 Comment: The patient is s/p washout/debridement of R shoulder 04/26/17. Dr. Galan has considered taking the patient back to the OR for repeat washout of the shoulder but is currently holding on this. Aspiration of the R shoulder 05/08 has no growth though the PCR is positive for MSSA. Continue ancef and rifampin. (6) DVT prophylaxis Current Visit: Yes Status: Acute Code(s): CKF1893 - SNOMED Code(s): 536074460 Comment: SQ heparin (7) Gout Current Visit: Yes Status: Acute Code(s): M10.9 - GOUT, UNSPECIFIED SNOMED Code(s): 40804253 Comment: allopurinol (8) Anemia Current Visit: Yes Status: Acute Code(s): D64.9 - ANEMIA, UNSPECIFIED SNOMED Code(s): 851110539 Comment: iron panel and ferritin. anemia of chronic disease. Status and Disposition: medicine inpatient.
[2017-05-13] MEDS: Atorvastatin* 20 MG TAB PO SCH (16:40)
[2017-05-13] MEDS: Acetaminophen TAB* 325 MG PO PRN (16:40)
[2017-05-13] MEDS: Artificial Tears* 15 ML BTL BOTH EYES PRN (16:40)
[2017-05-13] MEDS: LORazepam INJ* 2 MG/ML 1 ML VIAL IV PUSH PRN (23:34)
[2017-05-14] MEDS: ceFAZolin 2 GM/20 ML SYRINGE IVPB Q8H IVPB SCH ×6 (00:59→16:53)
[2017-05-14] MEDS: Heparin VIAL(*) 5000 UNITS/ML VIAL (FIVE THOUSAND) SUBCUT SCH ×2 (05:33→22:24)
[2017-05-14 08:18] LABS: ABS Basophils 0 10^3/ul (0-0.2); ABS Eosinophils 0.7 10^3/ul (0-0.6); ABS Lymphocytes 0.9 10^3/ul (1.0-4.8); ABS Monocytes 0.9 10^3/ul (0-0.8); ABS Neutrophils 5.9 10^3/ul (1.5-7.7); ABS Nucleated RBC 0 10^3/ul; Eosinophil % 8.8 % (0-6); Hematocrit 20 % (42-52); Hemoglobin 6.8 g/dl (14.0-18.0); Lymphocyte % 10.2 % (25-47); Mean Corpuscular HGB Conc 34 g/dl (31-36); Mean Corpuscular Hemoglobin 31 pg (27-31); Mean Corpuscular Volume 90 fL (80-94); Mean Platelet Volume 6.7 um3 (7.4-10.4); Nucleated Red Blood Cells % 0; Platelet Count 340 10^3/ul (150-450); Red Blood Count 2.22 10^6/ul (4.0-5.4); Red Cell Distribution Width 16 % (10.5-15); White Blood Count 8.5 10^3/ul (3.5-10.8)
[2017-05-14] MEDS ORDERED: Magnesium Sulfate IV* 3 GM in NS 0.9% 100 ML* 100 ML IVPB ONE (08:42)
[2017-05-14] MEDS: Potassium Chloride LIQUID* 20 MEQ PACKET PO SCH ×3 (09:16→22:24)
[2017-05-14] MEDS: Thiamine TAB* 100 MG TAB PO SCH (09:17)
[2017-05-14] MEDS: oxyCODONE TAB* 5 MG TAB PO PRN (09:17)
[2017-05-14] MEDS: CMCS: Nebivolol TAB (NF) 2.5 MG TAB PO SCH (09:18)
[2017-05-14] MEDS: Multivitamins ADULT w/MIN LIQ* 15 ML UDC PO SCH (09:18)
[2017-05-14] MEDS: Allopurinol TAB* 100 MG PO SCH (09:18)
[2017-05-14] MEDS: RiFAMPin IV* 600 MG in NS 0.9% 250 ML* 250 ML IVPB SCH (10:38)
[2017-05-14 11:02] LABS: EGFR Non-African American 91.8 (>60)
--- NOTE | 2017-05-14 11:27 | PN ---
Subjective Date of Service: 05/14/17 Interval History: Hgb to 6.8 denies complaints T&S added on s/p right abscess drainage in IR with 20-30 cc pus. already positive for MSSA Objective Active Medications: Acetaminophen (Tylenol Tab*) 650 mg PO Q4H PRN PRN Reason: FEVER Last Admin: 05/13/17 16:40 Dose: 650 mg Allopurinol (Zyloprim Tab*) 100 mg PO QAM [facility] Last Admin: 05/14/17 09:18 Dose: 100 mg Atorvastatin Calcium (Lipitor*) 20 mg PO 1700 [facility] Last Admin: 05/13/17 16:40 Dose: 20 mg Heparin Sodium (Porcine) (Heparin Vial(*)) 5,000 units SUBCUT Q8HR [facility] Stop: 05/14/17 13:00 Last Admin: 05/14/17 05:33 Dose: 5,000 units Heparin Sodium (Porcine) (Heparin Flush Picc/Ml/Cvc(*)) 0 ml FLUSH 0600,1800 [facility] PRN Reason: Protocol Last Admin: 05/14/17 05:33 Dose: 3 ml Heparin Sodium (Porcine) (Heparin Vial(*)) 5,000 units SUBCUT Q8HR [facility] Cefazolin Sodium 2 gm/ Sterile (Water) 20 mls @ 60 mls/hr IVPB Q8H [facility] Last Admin: 05/14/17 09:14 Dose: 60 mls/hr Potassium Chloride 40 meq/ (Sodium Chloride) 270 mls @ 67.5 mls/hr IVPB ONCE ONE Stop: 05/14/17 15:59 Lorazepam (Ativan Inj*) 0.5 mg IV PUSH Q4H PRN PRN Reason: ANXIETY Last Admin: 05/13/17 23:34 Dose: 0.5 mg Multivitamins (Theragran W/Minerals Liq*) 15 ml PO DAILY [facility] Last Admin: 05/14/17 09:18 Dose: 15 ml Nebivolol (Bystolic Tab (Nf)) 10 mg PO QAM [facility] Last Admin: 05/14/17 09:18 Dose: 10 mg Ondansetron HCl (Zofran Inj*) 4 mg IV Q6H PRN PRN Reason: NAUSEA/VOMITING Last Admin: 05/09/17 16:12 Dose: 4 mg Oxycodone HCl (Roxycodone Tab*) 5 mg PO Q4H PRN PRN Reason: PAIN Last Admin: 05/14/17 09:17 Dose: 5 mg Polyvinyl Alcohol (Polyvinyl Alcohol 1.4% Opth*) 1 drop BOTH EYES Q2H PRN PRN Reason: DRY EYE Last Admin: 05/13/17 16:40 Dose: 1 drop Potassium Chloride (Klor-Con Liquid*) 20 meq PO TID MIKE Last Admin: 05/14/17 09:16 Dose: 20 meq Rifampin (Rifampin Cap*) 600 mg PO DAILY MIKE Thiamine HCl (Vitamin B-1 Tab*) 100 mg PO DAILY MIKE Last Admin: 05/14/17 09:17 Dose: 100 mg Vital Signs - 8 hr 05/14/17 05/14/17 05/14/17 07:24 08:00 09:17 Temperature 98.7 F Pulse Rate 94 Respiratory 20 18 16 Rate Blood Pressure 156/83 (mmHg) O2 Sat by Pulse 98 98 Oximetry Oxygen Devices in Use Now: None Appearance: NAD Ears/Nose/Mouth/Throat: NL Teeth, Lips, Gums Respiratory: Symmetrical Chest Expansion and Respiratory Effort, - - reduced at b/l bases Cardiovascular: NL Sounds; No Murmurs; No JVD, RRR Abdominal: NL Sounds; No Tenderness; No Distention, No Hepatosplenomegaly Extremities: No Edema, - - left knee effusion and vertical incision. no warmth. Neurological: - - oriented to name. "20[address]", not place. Nutrition: Taking PO's Result Diagrams: 05/14/17 08:00 05/14/17 08:00 Additional Lab and Data: Laboratory Results - last 24 hr 05/14/17 05/14/17 05/14/17 08:00 08:00 08:00 WBC 8.5 RBC 2.22 L Hgb 6.8 L Hct 20 L MCV 90 MCH 31 MCHC 34 RDW 16 H Plt Count 340 MPV 6.7 L Neut % (Auto) 69.6 Lymph % (Auto) 10.[address] [facility] % (Auto) 10.8 H Eos % (Auto) 8.8 H Baso % (Auto) 0.6 Absolute Neuts (auto) 5.9 Absolute Lymphs (auto) 0.9 L Absolute Monos (auto) 0.9 H Absolute Eos (auto) 0.7 H Absolute Basos (auto) 0 Absolute Nucleated RBC 0 Nucleated RBC % 0 Sodium 142 Potassium 3.2 L Chloride 109 Carbon Dioxide 25 Anion Gap 8 BUN 10 Creatinine 0.82 Est GFR ( Amer) 118.1 Est GFR (Non-Af Amer) 91.8 BUN/Creatinine Ratio 12.2 Glucose 94 Calcium 7.7 L Magnesium 1.8 L Fluid Source Fluid Volume Fluid Color Fluid Appearance Fluid WBC Fluid RBC Fluid Tot Cell Count Fluid Neutrophils Fluid Band Neutrophils Fluid Lymphocytes Fluid Reactive Lymphs Fluid Monocytes Fluid Eosinophils Fluid Basophils Fluid Promyelocytes Fluid Myelocytes Fluid Metamyelocytes Fluid Blast Cells Fluid Nucleated RBCs Fluid Other Cells Fluid Cell Count Rvw By Fluid Comment Blood Type O Positive Antibody Screen Negative 05/14/17 14:30 WBC RBC Hgb Hct MCV MCH MCHC RDW Plt Count MPV Neut % (Auto) Lymph % (Auto) [facility] % (Auto) Eos % (Auto) Baso % (Auto) Absolute Neuts (auto) Absolute Lymphs (auto) Absolute Monos (auto) Absolute Eos (auto) Absolute Basos (auto) Absolute Nucleated RBC Nucleated RBC % Sodium Potassium Chloride Carbon Dioxide Anion Gap BUN Creatinine Est GFR ( Amer) Est GFR (Non-Af Amer) BUN/Creatinine Ratio Glucose Calcium Magnesium Fluid Source Cancelled Fluid Volume Cancelled Fluid Color Cancelled Fluid Appearance Cancelled Fluid WBC Cancelled Fluid RBC Cancelled Fluid Tot Cell Count Cancelled Fluid Neutrophils Cancelled Fluid Band Neutrophils Cancelled Fluid Lymphocytes Cancelled Fluid Reactive Lymphs Cancelled Fluid Monocytes Cancelled Fluid Eosinophils Cancelled Fluid Basophils Cancelled Fluid Promyelocytes Cancelled Fluid Myelocytes Cancelled Fluid Metamyelocytes Cancelled Fluid Blast Cells Cancelled Fluid Nucleated RBCs Cancelled Fluid Other Cells Cancelled Fluid Cell Count Rvw By Cancelled Fluid Comment Cancelled Blood Type Antibody Screen Microbiology and Other Data: Microbiology 05/14/17 14:30 Misc Fluid (See Comment) - Abscess Gram Stain - Final 05/14/17 14:30 Misc Fluid (See Comment) - Abscess Skin and Soft Tissue MRSA/ MSSA (PCR - Final Mrsa Negative S.aureus Positive 05/09/17 17:00 Blood Venous Aerobic Blood Culture - Final No Growth Day 5 05/09/17 17:00 Blood Venous Anaerobic Blood Culture - Final No Growth Day 5 05/09/17 17:00 Blood Venous Aerobic Blood Culture - Final No Growth Day 5 05/09/17 17:00 Blood Venous Anaerobic Blood Culture - Final No Growth Day 5 05/12/17 01:30 Blood Venous Aerobic Blood Culture - Preliminary No Growth Day 2 05/12/17 01:30 Blood Venous Anaerobic Blood Culture - Preliminary No Growth Day 2 05/12/17 01:30 Blood Venous Aerobic Blood Culture - Preliminary No Growth Day 2 05/12/17 01:30 Blood Venous Anaerobic Blood Culture - Preliminary No Growth Day 2 05/12/17 00:48 Blood Venous Aerobic Blood Culture - Preliminary No Growth Day 2 05/12/17 00:48 Blood Venous Anaerobic Blood Culture - Preliminary No Growth Day 2 05/08/17 19:15 Joint Fluid(Synovial) Gram Stain - Final 05/08/17 19:15 Joint Fluid(Synovial) Body Fluid Culture - Final No Growth Day 4 05/08/17 19:15 Joint Fluid(Synovial) Skin and Soft Tissue MRSA/MSSA (PCR - Final Mrsa Negative S.aureus Negative 05/08/17 19:15 Body Fluid Gram Stain - Final 05/08/17 19:15 Body Fluid Body Fluid Culture - Final No Growth Day 4 05/08/17 19:15 Body Fluid Skin and Soft Tissue MRSA/MSSA (PCR - Final Mrsa Negative S.aureus Positive 04/23/17 10:30 Misc Source (See Comment) - Other Fungal Culture - Preliminary 04/27/17 08:00 Blood Venous Aerobic Blood Culture - Final No Growth Day 5 04/27/17 08:00 Blood Venous Anaerobic Blood Culture - Final No Growth Day 5 04/27/17 06:10 Blood Venous Aerobic Blood Culture - Final Staphylococcus Epidermidis 04/27/17 06:10 Blood Venous Anaerobic Blood Culture - Final No Growth Day 5 04/27/17 06:10 Blood Venous Blood MRSA/MSSA (PCR) - Final Mrsa Negative S.aureus Negative 04/26/17 21:00 Wound - Wound Anaerobic Culture - Final 04/26/17 21:00 Wound - Wound Skin and Soft Tissue MRSA/MSSA (PCR - Final Mrsa Negative S.aureus Positive 04/26/17 21:00 Wound - Wound Gram Stain - Final 04/26/17 21:00 Wound - Wound Wound Culture - Final Staphylococcus Aureus 04/23/17 15:53 Wound - Knee Left Anaerobic Culture - Final 04/23/17 15:53 Wound - Knee Left Skin and Soft Tissue MRSA/MSSA (PCR - Final Mrsa Negative S.aureus Positive 04/23/17 15:53 Wound - Knee Left Gram Stain - Final 04/23/17 15:53 Wound - Knee Left Wound Culture - Final Staphylococcus Aureus 04/23/17 10:30 Joint Fluid(Synovial) - Knee Left Gram Stain - Final 04/23/17 10:30 Joint Fluid(Synovial) - Knee Left Body Fluid Culture - Final Staphylococcus Aureus 04/23/17 10:30 Joint Fluid(Synovial) - Knee Left Skin and Soft Tissue MRSA/ MSSA (PCR - Final Mrsa Negative S.aureus Positive 04/22/17 16:56 Wound - Abscess Anaerobic Culture - Final 04/22/17 16:56 Wound - Abscess Skin and Soft Tissue MRSA/MSSA (PCR - Final Mrsa Negative S.aureus Positive 04/22/17 16:56 Wound - Abscess Gram Stain - Final 04/22/17 16:56 Wound - Abscess Wound Culture - Final Staphylococcus Aureus 04/22/17 15:00 Wound - Other Anaerobic Culture - Final 04/22/17 15:00 Misc Source (See Comment) - Other Skin and Soft Tissue MRSA/ MSSA (PCR - Final Mrsa Negative S.aureus Positive 04/22/17 15:00 Misc Source (See Comment) - Other Gram Stain - Final 04/22/17 15:00 Misc Source (See Comment) - Other Wound Culture - Final Staphylococcus Aureus 04/21/17 05:40 Blood Venous Aerobic Blood Culture - Final Staphylococcus Aureus 04/21/17 05:40 Blood Venous Anaerobic Blood Culture - Final Staphylococcus Aureus 04/21/17 05:40 Blood Venous Blood MRSA/MSSA (PCR) - Final Mrsa Negative S.aureus Positive 04/21/17 04:40 Blood Venous Aerobic Blood Culture - Final Staphylococcus Aureus 04/21/17 04:40 Blood Venous Anaerobic Blood Culture - Final Staphylococcus Aureus 04/21/17 04:40 Blood Venous Blood MRSA/MSSA (PCR) - Final Mrsa Negative S.aureus Positive 04/22/17 06:20 Nasal Nasal Screen MRSA (PCR)(KEEGAN) - Final Mrsa Not Detected Assess/Plan/Problems-Billing Mr Bonilla is a 76 yo M with h/o HTN, multiple joint replacements, GI bleed (and partial colon resection due to bleed) who presented to the ER with c/o severe back pain and was ultimately found to a very large epidural abscess, R septic shoulder, L septic knee in the setting of MSSA bacteremia. s/p right psoas abscess drainage 05/14. - Patient Problems (1) Encephalopathy Current Visit: Yes Status: Acute Code(s): G93.40 - ENCEPHALOPATHY, UNSPECIFIED SNOMED Code(s): 88201313 Comment: Improving each day. Likely septic encephalopathy from being septic on admission from the numerous infectious sources. ammonia level wnl. Monitor mental status. consider LP if progress halts. (2) Epidural abscess Current Visit: Yes Status: Acute Code(s): G06.2 - EXTRADURAL AND SUBDURAL ABSCESS, UNSPECIFIED SNOMED Code(s): 41967600 Comment: The patient presented with a very large epidural abscess. He underwent multilevel skip laminectomies at C6-7, T2, T3, T5, T6, T8, T9, T10, T12, L3, L4, L5 on 04/22/17. Continue rifampin and ancef per Dr. Franklin. appreciate Neurosurgery recs. May be seroma on recent MRI and CT imaging from lower cervical to thoracolumbar junction. aborted IR drainage 05/14 attempt as pt could not be positioned and IR uncomfortable taking of his dressing. (3) MSSA bacteremia Current Visit: Yes Status: Acute Code(s): R78.81 - BACTEREMIA SNOMED Code( s): 169650928 Comment: The patient was bacteremic from at least 04/21/17. Follow up blood cultures from 05/09/17 are negative so far. Had additional set 3/20 PM NGTD . Continue rifampin and ancef per Dr. Franklin. still elevated CRP. s/p R psoas muscle abscess drainage 05/14. MSSA (4) Septic arthritis of knee, left Current Visit: Yes Status: Acute Code(s): M00.9 - PYOGENIC ARTHRITIS, UNSPECIFIED SNOMED Code(s): 617843601 Comment: The patient is s/p washout/debridement and liner exchange of the left knee total arthroplasty 04/23/17. Left knee aspiration on 05/08/17 has no growth so far. Continue ancef and rifampin per Dr. Franklin. (5) Septic arthritis of shoulder, right Current Visit: Yes Status: Acute Code(s): M00.9 - PYOGENIC ARTHRITIS, UNSPECIFIED SNOMED Code(s): 40686790 Comment: The patient is s/p washout/debridement of R shoulder 04/26/17. Dr. Galan has considered taking the patient back to the OR for repeat washout of the shoulder but is currently holding on this. Aspiration of the R shoulder 05/08 has no growth though the PCR is positive for MSSA. Continue ancef and rifampin. (6) DVT prophylaxis Current Visit: Yes Status: Acute Code(s): KNP3367 - SNOMED Code(s): 977376527 Comment: SQ heparin (7) Gout Current Visit: Yes Status: Acute Code(s): M10.9 - GOUT, UNSPECIFIED SNOMED Code(s): 89209923 Comment: allopurinol (8) Anemia Current Visit: Yes Status: Acute Code(s): D64.9 - ANEMIA, UNSPECIFIED SNOMED Code(s): 010727674 Comment: anemia of chronic disease. may need additional transfusion tomorrow. Status and Disposition: medicine inpatient.
[2017-05-14] MEDS ORDERED: KCL 20 MEQ/100 ML IVPREMIX* 20 MEQ/100 ML BAG IV SCH (12:00)
[2017-05-14] MEDS ORDERED: Potassium Chloride IV* 40 MEQ in NS 0.9% 250 ML* 250 ML IVPB ONE (12:00)
[2017-05-14] MEDS ORDERED: fentaNYL* 50 MCG/ML 2 ML VIAL (100 MCG VIAL) ONE (13:04)
--- NOTE | 2017-05-14 14:10 | RAD ---
Indication: Evaluate paraspinal fluid collection Real-time sonography of the paraspinal soft tissue demonstrates hypoechoic area adjacent to the spinous processes suggestive of a trace amount of fluid. IMPRESSION: Trace amount of free fluid is noted around the spinous processes.
--- NOTE | 2017-05-14 15:05 | PN ---
Progress Note - Progress Note Date of Service: 05/14/17 SOAP: Subjective: 76 y/o male. Patient underwent aspiration and drainage of pelvic abscess today , + purulent fluid, sent for cultures. VSS afebrile Objective: General- Resting in bed in IR area comfortably. MSK- R shoulder- with stretching, ROM 90, 90 with abd, flexion with minimal pain. I c/d/i, no erythema, warmth. + edema distally to hand L knee: decreased ROM with clunking sensation, 0-30, tender to patient, no erythema, + moderate effusion, non-tender to palpation. neg homans. Vital Signs Temp 98.1 F 05/14/17 11:17 Pulse 87 05/14/17 11:17 Resp 16 05/14/17 12:53 BP 151/81 05/14/17 11:17 Pulse Ox 97 05/14/17 11:17 Intake & Output 05/13/17 05/14/17 05/14/17 18:59 06:59 18:59 Intake Total 790 190 555 Output Total 450 1200 400 Balance 340 -1010 155 Intake: IV Fluids 50 175 ABX - CEFAZOLIN 21 NS (0.45%) 20 meq KCL 50 NS (0.9%) 40 magnesium 3g 114 IVPB 310 20 ABX - CEFAZOLIN 40 20 rifampin 270 Oral 480 120 380 Output: Hackett 450 1200 400 Other: # Bowel Movements 0 0 Estimated Stool Amount Medium Assessment: Stable POD 21 open I&D left knee, e/o liner POD 18 arthroscopic I&D right shoulder Plan: - DVT prophylaxis- heparin - IV ABX per ID, await pelvic cultures - L knee- x-ray today to eval for loosening hardware, spacer. - Continue to monitor CRP - Continue PT/ OT Acetaminophen (Tylenol Tab*) 650 mg PO Q4H PRN PRN Reason: FEVER Last Admin: 05/13/17 16:40 Dose: 650 mg Allopurinol (Zyloprim Tab*) 100 mg PO QAM MIKE Last Admin: 05/14/17 09:18 Dose: 100 mg Atorvastatin Calcium (Lipitor*) 20 mg PO 1700 [facility] Last Admin: 05/13/17 16:40 Dose: 20 mg Heparin Sodium (Porcine) (Heparin Flush Picc/Ml/Cvc(*)) 0 ml FLUSH 0600,1800 [facility] PRN Reason: Protocol Last Admin: 05/14/17 12:59 Dose: 1 ml Heparin Sodium (Porcine) (Heparin Vial(*)) 5,000 units SUBCUT Q8HR [facility] Cefazolin Sodium 2 gm/ Sterile (Water) 20 mls @ 60 mls/hr IVPB Q8H [facility] Last Admin: 05/14/17 09:14 Dose: 60 mls/hr Potassium Chloride 40 meq/ (Sodium Chloride) 270 mls @ 67.5 mls/hr IVPB ONCE ONE Stop: 05/14/17 15:59 Last Admin: 05/14/17 12:50 Dose: 67.5 mls/hr Lorazepam (Ativan Inj*) 0.5 mg IV PUSH Q4H PRN PRN Reason: ANXIETY Last Admin: 05/13/17 23:34 Dose: 0.5 mg Multivitamins (Theragran W/Minerals Liq*) 15 ml PO DAILY [facility] Last Admin: 05/14/17 09:18 Dose: 15 ml Nebivolol (Bystolic Tab (Nf)) 10 mg PO QAM [facility] Last Admin: 05/14/17 09:18 Dose: 10 mg Ondansetron HCl (Zofran Inj*) 4 mg IV Q6H PRN PRN Reason: NAUSEA/VOMITING Last Admin: 05/09/17 16:12 Dose: 4 mg Oxycodone HCl (Roxycodone Tab*) 5 mg PO Q4H PRN PRN Reason: PAIN Last Admin: 05/14/17 09:17 Dose: 5 mg Polyvinyl Alcohol (Polyvinyl Alcohol 1.4% Opth*) 1 drop BOTH EYES Q2H PRN PRN Reason: DRY EYE Last Admin: 05/13/17 16:40 Dose: 1 drop Potassium Chloride (Klor-Con Liquid*) 20 meq PO TID [facility] Last Admin: 05/14/17 09:16 Dose: 20 meq Rifampin (Rifampin Cap*) 600 mg PO DAILY [facility] Thiamine HCl (Vitamin B-1 Tab*) 100 mg PO DAILY [facility] Last Admin: 05/14/17 09:17 Dose: 100 mg <WellLayla cuevas - Last Filed: 05/14/17 15:05> - Progress Note SOAP: Subjective: Spoke with patient's and later examined patient. Objective: RUE: - shoulder exam unchanged- PROM 90 FF, 10 ER at side and 80 IR with abduction LLE: - PROM knee 0-95. It took some convincing for the patient to let me flex his knee past 20-30 degrees of flexion, where he actively resists you at first. Pain only when I reached 85-90 degrees of flexion - trace effusion left knee Assessment: POD 21 open I&D left knee, e/o liner POD 18 arthroscopic I&D right shoulder Plan: - DVT prophylaxis- heparin - IV ABX per ID, await pelvic/psoas cultures - L knee- x-ray ordered today and we will f/u - Continue to monitor CRP - Continue PT/ OT <Doc Galan - Last Filed: 05/14/17 18:59>
--- NOTE | 2017-05-14 16:32 | PN ---
Progress Note - Progress Note Date of Service: 05/14/17 SOAP: Subjective: [] patient seen earlier today with Dr Hassan. No event ON. Tolerates po. On Abx IV. No drainage from wound. Objective: [] VSS Afebrile Wound s,c,d, very minimal dry discharge on dressing lower lumbar. No redness, No active drainage, even to pressure. AAOx2, RADHA, Face symmetric, tongue midline. Nichole spontaneously, Follows command. 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 Can bend both knees 3-4/5, Exam limited due to mental status, previous surgical interventions. Sensory grossly intact to light touch. Assessment: []76 yom POD#21 multilevel laminectomies for holospinal epidural abscess Plan: []Monitor VS, Neurochecks. Monitor wound. Wound dressing changes daily. Discussed with Dr Hassan regarding possibility of placing wound vac. Based on the fact that wound has minimal discharge, which is diminishing, without obvious infection or dehiscence, will continue with regular dressing changes daily and consider aquaseal if needed. Monitor labs. Keep sutures for 6 weeks. IR drainage of Rt psoas abscess done. US did not reveal a drainable collection in paraspinal area. No tap performed. PT/OT when able to participate. Abx per ID Appreciate Dr Hassan's input. Appreciate ID, IM, Orthopedic care. Armond Melendrez MD
[2017-05-14] MEDS: Atorvastatin* 20 MG TAB PO SCH (16:54)
--- NOTE | 2017-05-14 16:56 | PN ---
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 Denies pain, fever, rash, or diarrhea. Had psoas collection drained by IR today. Objective: Vital Signs Temp 36.3 C 05/14/17 16:12 Pulse 75 05/14/17 16:12 Resp 16 05/14/17 16:12 BP 127/95 05/14/17 16:12 Pulse Ox 100 05/14/17 16:12 Intake & Output 05/13/17 05/14/17 05/14/17 18:59 06:59 18:59 Intake Total 790 190 555 Output Total 450 1200 400 Balance 340 -1010 155 Intake: IV Fluids 50 175 ABX - CEFAZOLIN 21 NS (0.45%) 20 meq KCL 50 NS (0.9%) 40 magnesium 3g 114 IVPB 310 20 ABX - CEFAZOLIN 40 20 rifampin 270 Oral 480 120 380 Output: Hackett 450 1200 400 Other: # Bowel Movements 0 0 Estimated Stool Amount Medium Gen:no distress Neuro: asleep; opens eyes to voice HEENT:PERRL, MMD Heart:RRR no murmur Lungs:clear to auscultation Abd:+ BS NTND soft Skin: no rash; spine incision intact MSK: L knee no effusion, mild edema, incision intact Microbiology 05/14/17 14:30 Gram Stain - Final Misc Fluid (See Comment) - Abscess 05/12/17 01:30 Aerobic Blood Culture - Preliminary Blood Venous No Growth Day 2 Anaerobic Blood Culture - Preliminary No Growth Day 2 05/12/17 01:30 Aerobic Blood Culture - Preliminary Blood Venous No Growth Day 2 Anaerobic Blood Culture - Preliminary No Growth Day 2 05/12/17 00:48 Aerobic Blood Culture - Preliminary Blood Venous No Growth Day 2 Anaerobic Blood Culture - Preliminary No Growth Day 2 05/09/17 17:00 Aerobic Blood Culture - Preliminary Blood Venous No Growth Day 4 Anaerobic Blood Culture - Preliminary No Growth Day 4 05/09/17 17:00 Aerobic Blood Culture - Preliminary Blood Venous No Growth Day 4 Anaerobic Blood Culture - Preliminary No Growth Day 4 Assessment: 1. MSSA bacteremia, cleared. 2. MSSA epidural abscess s/p I&D; psoas abscess s/p IR drain 05/14. 4. 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 MSSA septic right shoulder s/p I&D 6. presence bilateral hip arthroplasties 7. Elevated CRP Plan: 1. ancef/rifampin day followed by long-term oral antibiotics 35 minutes floor time >50% face to face with patient and discussing antibiotic plans
--- NOTE | 2017-05-14 17:26 | RAD ---
CPT II Codes: 6100F INDICATION: Small right retroperitoneal fluid collection in a patient with sepsis COMPARISON: Most recent CT of the abdomen and pelvis May 13, 2017 PROCEDURE NOTE AND FINDINGS: The indication, alternatives therapies, benefits and risks of the procedure were explained to the patient's , Sameera Bonilla, over the telephone and informed consent was obtained. The patient was brought to the CT suite and positioned in the supine position. . A time out was preformed with the technologist and nursing staff. The patient was prepped and draped in the usual sterile fashion. The patient was given intravenous fentanyl and local anesthesia with 1% lidocaine. Utilizing CT guidance an 18-gauge, 20 cm length needle was advanced from the skin overlying the right lower quadrant through the peritoneal fat and psoas muscle entering the fluid collection along the medial margin of the psoas muscle approximately at the S1 level. CT imaging was acquired intermittently for appropriate needle guidance. Once needle placement was confirmed in the collection the needle was aspirated yielding approximately 10 mL of purulent, malodorous quintana material. The needle was drawn back approximately 1 cm and another 10 mL of mucopurulent and partially hematogenous material was aspirated. Both samples were packaged and sent to the laboratory for analysis. Postprocedural image shows resolution of the kira psoas collection. The patient tolerated the procedure well without incident. The patient was transported back to his inpatient room. IMPRESSION: Uncomplicated CT needle aspiration of a right kira psoas abscess as described in the body of the report.
--- NOTE | 2017-05-14 19:59 | RAD ---
HISTORY: History of left knee infection, decreased range of motion COMPARISONS: April 23, 2012 VIEWS: 3, Frontal and lateral views of the left knee FINDINGS: BONE DENSITY: Normal. BONES: The patient is status post left knee arthroplasty. There is no hardware failure or osteolysis. There is remote post right changes to the proximal tibia and fibula. JOINTS: The patient is status post left knee arthroplasty. ALIGNMENT: There is no dislocation. SOFT TISSUES: There is peripheral arterial calcification. There is prepatellar soft tissue swelling. OTHER FINDINGS: None. IMPRESSION: 1. STATUS POST LEFT KNEE ARTHROPLASTY. 2. PERIPHERAL ARTERIAL DISEASE. 3. SOFT TISSUE SWELLING.
[2017-05-15] MEDS ORDERED: Alteplase (CATHFLO)* 2 MG VIAL IV ONE (01:15)
[2017-05-15] MEDS: ceFAZolin 2 GM/20 ML SYRINGE IVPB Q8H IVPB SCH ×6 (01:47→17:33)
[2017-05-15] MEDS: Heparin VIAL(*) 5000 UNITS/ML VIAL (FIVE THOUSAND) SUBCUT SCH ×3 (05:49→21:06)
[2017-05-15] MEDS: Potassium Chloride LIQUID* 20 MEQ PACKET PO SCH ×3 (08:47→20:49)
[2017-05-15] MEDS: Multivitamins ADULT w/MIN LIQ* 15 ML UDC PO SCH (08:47)
[2017-05-15] MEDS: Thiamine TAB* 100 MG TAB PO SCH (08:48)
[2017-05-15] MEDS: CMCS: Nebivolol TAB (NF) 2.5 MG TAB PO SCH (08:48)
[2017-05-15] MEDS: RiFAMPin CAP* 300 MG CAP PO SCH (08:48)
[2017-05-15] MEDS: Allopurinol TAB* 100 MG PO SCH (08:48)
[2017-05-15 08:55] LABS: ABS Basophils 0 10^3/ul (0-0.2); ABS Eosinophils 0.7 10^3/ul (0-0.6); ABS Lymphocytes 0.9 10^3/ul (1.0-4.8); ABS Monocytes 0.8 10^3/ul (0-0.8); ABS Nucleated RBC 0 10^3/ul; Eosinophil % 9.8 % (0-6); Hematocrit 20 % (42-52); Hemoglobin 6.9 g/dl (14.0-18.0); Lymphocyte % 12.6 % (25-47); Mean Corpuscular HGB Conc 34 g/dl (31-36); Mean Corpuscular Hemoglobin 31 pg (27-31); Mean Corpuscular Volume 90 fL (80-94); Nucleated Red Blood Cells % 0.1; Platelet Count 339 10^3/ul (150-450); Red Blood Count 2.23 10^6/ul (4.0-5.4); Red Cell Distribution Width 16 % (10.5-15); White Blood Count 7.5 10^3/ul (3.5-10.8)
[2017-05-15 09:14] LABS: EGFR Non-African American 95.9 (>60)
--- NOTE | 2017-05-15 10:19 | PN ---
Progress Note - Progress Note Date of Service: 05/15/17 SOAP: Subjective: 76 y/o male. Patient underwent aspiration and drainage of pelvic abscess yesterday, + purulent fluid, sent for cultures. VSS afebrile. Pt states he has some pain in his right shoulder when he rolls over on it. Objective: General- Resting in bed in IR area comfortably. MSK- R shoulder- with stretching, ROM 90, 90 with abd, flexion with minimal pain. I c/d/i, no erythema, warmth. + edema distally to hand L knee: decreased ROM, 0-30, tender to patient, no erythema, + moderate effusion , non-tender to palpation. neg homans. Vital Signs Temp 98.4 F 05/15/17 07:35 Pulse 87 05/15/17 07:35 Resp 22 05/15/17 08:00 BP 150/76 05/15/17 07:35 Pulse Ox 96 05/15/17 08:00 Intake & Output 05/14/17 05/15/17 05/15/17 18:59 06:59 18:59 Intake Total 765 95 240 Output Total 400 2600 Balance 365 -2505 240 Intake: IV Fluids 175 95 ABX - CEFAZOLIN 21 NS (0.9%) 40 95 magnesium 3g 114 Oral 590 0 240 Output: Hackett 400 2600 Other: Estimated Void Large # Bowel Movements 0 0 Assessment: POD 22 open I&D left knee, e/o liner POD 19 arthroscopic I&D right shoulder Plan: - DVT prophylaxis- heparin - IV ABX per ID, await pelvic cultures - Continue to monitor CRP - Continue PT/ OT
[2017-05-15] MEDS ORDERED: Magnesium Sulfate 2 GM IV* 2 GM/50 ML BAG IVPB ONE (10:47)
--- NOTE | 2017-05-15 11:30 | PN ---
Subjective Date of Service: 05/15/17 Interval History: Pt denies complaints overnight he chewed off one of the claves of his PICC line. MSSA staph in psoas abscess. Hgb 6.9 from 6.8 Objective Active Medications: Acetaminophen (Tylenol Tab*) 650 mg PO Q4H PRN PRN Reason: FEVER Last Admin: 05/13/17 16:40 Dose: 650 mg Allopurinol (Zyloprim Tab*) 100 mg PO QAM [facility] Last Admin: 05/15/17 08:48 Dose: 100 mg Atorvastatin Calcium (Lipitor*) 20 mg PO 1700 [facility] Last Admin: 05/14/17 16:54 Dose: 20 mg Heparin Sodium (Porcine) (Heparin Flush Picc/Ml/Cvc(*)) 0 ml FLUSH 0600,1800 [facility] PRN Reason: Protocol Last Admin: 05/15/17 05:49 Dose: 1 ml Heparin Sodium (Porcine) (Heparin Vial(*)) 5,000 units SUBCUT Q8HR [facility] Last Admin: 05/15/17 05:49 Dose: 5,000 units Cefazolin Sodium 2 gm/ Sterile (Water) 20 mls @ 60 mls/hr IVPB Q8H [facility] Last Admin: 05/15/17 08:49 Dose: 60 mls/hr Magnesium Sulfate (Magnesium Sulfate 2 Gm Iv*) 2 gm in 50 mls @ 50 mls/hr IVPB ONCE ONE Stop: 05/15/17 11:46 Lorazepam (Ativan Inj*) 0.5 mg IV PUSH Q4H PRN PRN Reason: ANXIETY Last Admin: 05/13/17 23:34 Dose: 0.5 mg Multivitamins (Theragran W/Minerals Liq*) 15 ml PO DAILY [facility] Last Admin: 05/15/17 08:47 Dose: 15 ml Nebivolol (Bystolic Tab (Nf)) 10 mg PO QAM [facility] Last Admin: 05/15/17 08:48 Dose: 10 mg Ondansetron HCl (Zofran Inj*) 4 mg IV Q6H PRN PRN Reason: NAUSEA/VOMITING Last Admin: 05/09/17 16:12 Dose: 4 mg Polyvinyl Alcohol (Polyvinyl Alcohol 1.4% Opth*) 1 drop BOTH EYES Q2H PRN PRN Reason: DRY EYE Last Admin: 03/22/18 16:40 Dose: 1 drop Potassium Chloride (Klor-Con Liquid*) 20 meq PO TID [facility] Last Admin: 05/15/17 08:47 Dose: 20 meq Rifampin (Rifampin Cap*) 600 mg PO DAILY [facility] Last Admin: 05/15/17 08:48 Dose: 600 mg Thiamine HCl (Vitamin B-1 Tab*) 100 mg PO DAILY [facility] Last Admin: 05/15/17 08:48 Dose: 100 mg Vital Signs - 8 hr 05/15/17 05/15/17 07:35 08:00 Temperature 98.4 F Pulse Rate 87 Respiratory 18 18 Rate Blood Pressure 150/76 (mmHg) O2 Sat by Pulse 96 96 Oximetry Oxygen Devices in Use Now: None Appearance: NAD Eyes: No Scleral Icterus, PERRLA Ears/Nose/Mouth/Throat: NL Teeth, Lips, Gums Respiratory: Symmetrical Chest Expansion and Respiratory Effort Cardiovascular: NL Sounds; No Murmurs; No JVD, RRR Abdominal: NL Sounds; No Tenderness; No Distention, No Hepatosplenomegaly Extremities: No Edema, No Clubbing, Cyanosis, - - left knee effusion. Skin: No Rash or Ulcers, - Neurological: - - oriented to [facility] (after prompted 2nd time), not year Lines/Tubes/Other Access: Clean, Dry and Intact [place] Nutrition: Taking PO's Result Diagrams: 05/15/17 08:40 05/15/17 08:40 Additional Lab and Data: Laboratory Results - last 24 hr 05/14/17 05/14/17 05/15/17 08:00 14:30 08:40 WBC 7.5 RBC 2.23 L Hgb 6.9 L Hct 20 L MCV 90 MCH 31 MCHC 34 RDW 16 H Plt Count 339 MPV 7.0 L Neut % (Auto) 66.1 Lymph % (Auto) 12.6 L [place] % (Auto) 11.0 H Eos % (Auto) 9.8 H Baso % (Auto) 0.5 Absolute Neuts (auto) 5.0 Absolute Lymphs (auto) 0.9 L Absolute Monos (auto) 0.8 Absolute Eos (auto) 0.7 H Absolute Basos (auto) 0 Absolute Nucleated RBC 0 Nucleated RBC % 0.1 Sodium Potassium Chloride Carbon Dioxide Anion Gap BUN Creatinine Est GFR ( Amer) Est GFR (Non-Af Amer) BUN/Creatinine Ratio Glucose Calcium Magnesium C-Reactive Protein Fluid Source Cancelled Fluid Volume Cancelled Fluid Color Cancelled Fluid Appearance Cancelled Fluid WBC Cancelled Fluid RBC Cancelled Fluid Tot Cell Count Cancelled Fluid Neutrophils Cancelled Fluid Band Neutrophils Cancelled Fluid Lymphocytes Cancelled Fluid Reactive Lymphs Cancelled Fluid Monocytes Cancelled Fluid Eosinophils Cancelled Fluid Basophils Cancelled Fluid Promyelocytes Cancelled Fluid Myelocytes Cancelled Fluid Metamyelocytes Cancelled Fluid Blast Cells Cancelled Fluid Nucleated RBCs Cancelled Fluid Other Cells Cancelled Fluid Cell Count Rvw By Cancelled Fluid Comment Cancelled Blood Type O Positive Antibody Screen Negative 05/15/17 08:40 WBC RBC Hgb Hct MCV MCH MCHC RDW Plt Count MPV Neut % (Auto) Lymph % (Auto) [place] % (Auto) Eos % (Auto) Baso % (Auto) Absolute Neuts (auto) Absolute Lymphs (auto) Absolute Monos (auto) Absolute Eos (auto) Absolute Basos (auto) Absolute Nucleated RBC Nucleated RBC % Sodium 142 Potassium 3.5 Chloride 109 Carbon Dioxide 25 Anion Gap 8 BUN 10 Creatinine 0.79 Est GFR ( Amer) 123.3 Est GFR (Non-Af Amer) 95.9 BUN/Creatinine Ratio 12.7 Glucose 83 Calcium 7.7 L Magnesium 1.9 C-Reactive Protein 107.79 H Fluid Source Fluid Volume Fluid Color Fluid Appearance Fluid WBC Fluid RBC Fluid Tot Cell Count Fluid Neutrophils Fluid Band Neutrophils Fluid Lymphocytes Fluid Reactive Lymphs Fluid Monocytes Fluid Eosinophils Fluid Basophils Fluid Promyelocytes Fluid Myelocytes Fluid Metamyelocytes Fluid Blast Cells Fluid Nucleated RBCs Fluid Other Cells Fluid Cell Count Rvw By Fluid Comment Blood Type Antibody Screen Microbiology and Other Data: Microbiology 05/14/17 14:30 Misc Fluid (See Comment) - Abscess Gram Stain - Final 05/14/17 14:30 Misc Fluid (See Comment) - Abscess Body Fluid Culture - Preliminary No Growth Day 1 05/14/17 14:30 Misc Fluid (See Comment) - Abscess Skin and Soft Tissue MRSA/ MSSA (PCR - Final Mrsa Negative S.aureus Positive 05/12/17 01:30 Blood Venous Aerobic Blood Culture - Preliminary No Growth Day 3 05/12/17 01:30 Blood Venous Anaerobic Blood Culture - Preliminary No Growth Day 3 05/12/17 01:30 Blood Venous Aerobic Blood Culture - Preliminary No Growth Day 3 05/12/17 01:30 Blood Venous Anaerobic Blood Culture - Preliminary No Growth Day 3 05/12/17 00:48 Blood Venous Aerobic Blood Culture - Preliminary No Growth Day 3 05/12/17 00:48 Blood Venous Anaerobic Blood Culture - Preliminary No Growth Day 3 05/09/17 17:00 Blood Venous Aerobic Blood Culture - Final No Growth Day 5 05/09/17 17:00 Blood Venous Anaerobic Blood Culture - Final No Growth Day 5 05/09/17 17:00 Blood Venous Aerobic Blood Culture - Final No Growth Day 5 05/09/17 17:00 Blood Venous Anaerobic Blood Culture - Final No Growth Day 5 05/08/17 19:15 Joint Fluid(Synovial) Gram Stain - Final 05/08/17 19:15 Joint Fluid(Synovial) Body Fluid Culture - Final No Growth Day 4 05/08/17 19:15 Joint Fluid(Synovial) Skin and Soft Tissue MRSA/MSSA (PCR - Final Mrsa Negative S.aureus Negative 05/08/17 19:15 Body Fluid Gram Stain - Final 05/08/17 19:15 Body Fluid Body Fluid Culture - Final No Growth Day 4 05/08/17 19:15 Body Fluid Skin and Soft Tissue MRSA/MSSA (PCR - Final Mrsa Negative S.aureus Positive 04/23/17 10:30 Misc Source (See Comment) - Other Fungal Culture - Preliminary 04/27/17 08:00 Blood Venous Aerobic Blood Culture - Final No Growth Day 5 04/27/17 08:00 Blood Venous Anaerobic Blood Culture - Final No Growth Day 5 04/27/17 06:10 Blood Venous Aerobic Blood Culture - Final Staphylococcus Epidermidis 04/27/17 06:10 Blood Venous Anaerobic Blood Culture - Final No Growth Day 5 04/27/17 06:10 Blood Venous Blood MRSA/MSSA (PCR) - Final Mrsa Negative S.aureus Negative 04/26/17 21:00 Wound - Wound Anaerobic Culture - Final 04/26/17 21:00 Wound - Wound Skin and Soft Tissue MRSA/MSSA (PCR - Final Mrsa Negative S.aureus Positive 04/26/17 21:00 Wound - Wound Gram Stain - Final 04/26/17 21:00 Wound - Wound Wound Culture - Final Staphylococcus Aureus 04/23/17 15:53 Wound - Knee Left Anaerobic Culture - Final 04/23/17 15:53 Wound - Knee Left Skin and Soft Tissue MRSA/MSSA (PCR - Final Mrsa Negative S.aureus Positive 04/23/17 15:53 Wound - Knee Left Gram Stain - Final 04/23/17 15:53 Wound - Knee Left Wound Culture - Final Staphylococcus Aureus 04/23/17 10:30 Joint Fluid(Synovial) - Knee Left Gram Stain - Final 04/23/17 10:30 Joint Fluid(Synovial) - Knee Left Body Fluid Culture - Final Staphylococcus Aureus 04/23/17 10:30 Joint Fluid(Synovial) - Knee Left Skin and Soft Tissue MRSA/ MSSA (PCR - Final Mrsa Negative S.aureus Positive 04/22/17 16:56 Wound - Abscess Anaerobic Culture - Final 04/22/17 16:56 Wound - Abscess Skin and Soft Tissue MRSA/MSSA (PCR - Final Mrsa Negative S.aureus Positive 04/22/17 16:56 Wound - Abscess Gram Stain - Final 04/22/17 16:56 Wound - Abscess Wound Culture - Final Staphylococcus Aureus 04/22/17 15:00 Wound - Other Anaerobic Culture - Final 04/22/17 15:00 Misc Source (See Comment) - Other Skin and Soft Tissue MRSA/ MSSA (PCR - Final Mrsa Negative S.aureus Positive 04/22/17 15:00 Misc Source (See Comment) - Other Gram Stain - Final 04/22/17 15:00 Misc Source (See Comment) - Other Wound Culture - Final Staphylococcus Aureus 04/21/17 05:40 Blood Venous Aerobic Blood Culture - Final Staphylococcus Aureus 04/21/17 05:40 Blood Venous Anaerobic Blood Culture - Final Staphylococcus Aureus 04/21/17 05:40 Blood Venous Blood MRSA/MSSA (PCR) - Final Mrsa Negative S.aureus Positive 04/21/17 04:40 Blood Venous Aerobic Blood Culture - Final Staphylococcus Aureus 04/21/17 04:40 Blood Venous Anaerobic Blood Culture - Final Staphylococcus Aureus 04/21/17 04:40 Blood Venous Blood MRSA/MSSA (PCR) - Final Mrsa Negative S.aureus Positive 04/22/17 06:20 Nasal Nasal Screen MRSA (PCR)(KEEGAN) - Final Mrsa Not Detected Assess/Plan/Problems-Billing Mr Bonilla is a 76 yo M with h/o HTN, multiple joint replacements, GI bleed (and partial colon resection due to bleed) who presented to the ER with c/o severe back pain and was ultimately found to a very large epidural abscess, R septic shoulder, L septic knee in the setting of MSSA bacteremia. s/p right psoas abscess drainage 05/14. - Patient Problems (1) Encephalopathy Current Visit: Yes Status: Acute Code(s): G93.40 - ENCEPHALOPATHY, UNSPECIFIED SNOMED Code(s): 51837465 Comment: Likely septic encephalopathy from being septic on admission from the numerous infectious sources. ammonia level wnl. Monitor mental status. consider LP if progress halts. (2) Epidural abscess Current Visit: Yes Status: Acute Code(s): G06.2 - EXTRADURAL AND SUBDURAL ABSCESS, UNSPECIFIED SNOMED Code(s): 93998349 Comment: The patient presented with a very large epidural abscess. He underwent multilevel skip laminectomies at C6-7, T2, T3, T5, T6, T8, T9, T10, T12, L3, L4, L5 on 04/22/17. Continue rifampin and ancef per Dr. Franklin. appreciate Neurosurgery recs. May be seroma on recent MRI and CT imaging from lower cervical to thoracolumbar junction. aborted IR drainage 05/14 attempt as pt could not be positioned and IR uncomfortable taking off his dressing. f/u with NS (3) MSSA bacteremia Current Visit: Yes Status: Acute Code(s): R78.81 - BACTEREMIA SNOMED Code( s): 878202933 Comment: The patient was bacteremic from at least 04/21/17. Follow up blood cultures from 05/09/17 are negative so far. Had additional set 3/20 PM NGTD . Continue rifampin and ancef per Dr. Franklin. still elevated CRP. needs PICC line removed as found biting it. s/p R psoas muscle abscess drainage 05/14. MSSA (4) Septic arthritis of knee, left Current Visit: Yes Status: Acute Code(s): M00.9 - PYOGENIC ARTHRITIS, UNSPECIFIED SNOMED Code(s): 769102253 Comment: The patient is s/p washout/debridement and liner exchange of the left knee total arthroplasty 04/23/17. Left knee aspiration on 05/08/17 has no growth so far. Continue ancef and rifampin per Dr. Franklin. (5) Septic arthritis of shoulder, right Current Visit: Yes Status: Acute Code(s): M00.9 - PYOGENIC ARTHRITIS, UNSPECIFIED SNOMED Code(s): 69860447 Comment: The patient is s/p washout/debridement of R shoulder 04/26/17. Dr. Galan has considered taking the patient back to the OR for repeat washout of the shoulder but is currently holding on this. Aspiration of the R shoulder 05/08 has no growth though the PCR is positive for MSSA. Continue ancef and rifampin. (6) DVT prophylaxis Current Visit: Yes Status: Acute Code(s): FUL3648 - SNOMED Code(s): 711642816 Comment: SQ heparin (7) Gout Current Visit: Yes Status: Acute Code(s): M10.9 - GOUT, UNSPECIFIED SNOMED Code(s): 33467631 Comment: allopurinol (8) Anemia Current Visit: Yes Status: Acute Code(s): D64.9 - ANEMIA, UNSPECIFIED SNOMED Code(s): 973004313 Comment: anemia of chronic disease. asymptomatic but on border of transfusion consideration. hgb 6.9 Status and Disposition: medicine inpatient.
[2017-05-15] MEDS: Atorvastatin* 20 MG TAB PO SCH (17:33)
--- NOTE | 2017-05-15 20:27 | PN ---
Progress Note - Progress Note Date of Service: 05/15/17 SOAP: Subjective: []No events ON. Tolerates po. On Abx IV. No drainage from wound. Had IR evacuation of rt psoas abscess yesterday. No drainable collection in paraspinal area identified by US. Objective: [] VSS Afebrile Wound s,c,d, No discharge on dressing lower lumbar. No redness, No active drainage. AAOx2, RADHA, Face symmetric, tongue midline. Nichole spontaneously, Follows command. 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 Can bend both knees 3-4/5, Exam limited due to mental status, previous surgical interventions. Sensory grossly intact to light touch. Assessment: []76 yom POD#22 multilevel laminectomies for holospinal epidural abscess Plan: []Monitor VS, Neurochecks. Monitor wound. Wound dressing changes daily. Continue with regular dressing changes daily and consider aquaseal if needed. Monitor labs. Keep sutures for 6 weeks. PT/OT when able to participate. Abx per ID Appreciate ID, IM, Orthopedic care. Armond Melendrez MD
[2017-05-16] MEDS: LORazepam INJ* 2 MG/ML 1 ML VIAL IV PUSH PRN ×2 (00:16→22:13)
[2017-05-16] MEDS: ceFAZolin 2 GM/20 ML SYRINGE IVPB Q8H IVPB SCH ×6 (00:58→17:05)
[2017-05-16] MEDS: Heparin VIAL(*) 5000 UNITS/ML VIAL (FIVE THOUSAND) SUBCUT SCH ×3 (05:42→22:10)
[2017-05-16] MEDS: RiFAMPin CAP* 300 MG CAP PO SCH (09:19)
[2017-05-16] MEDS: amLODIPine TAB* 5 MG PO SCH (09:19)
[2017-05-16] MEDS: Allopurinol TAB* 100 MG PO SCH (09:19)
[2017-05-16] MEDS: Potassium Chloride LIQUID* 20 MEQ PACKET PO SCH ×3 (09:20→21:07)
[2017-05-16] MEDS: CMCS: Nebivolol TAB (NF) 2.5 MG TAB PO SCH (09:20)
[2017-05-16] MEDS: Multivitamins ADULT w/MIN LIQ* 15 ML UDC PO SCH (09:20)
[2017-05-16] MEDS: Thiamine TAB* 100 MG TAB PO SCH (09:20)
[2017-05-16] MEDS: Ondansetron INJ* 2 MG/ML VIAL IV PRN (09:31)
--- NOTE | 2017-05-16 10:44 | PN ---
Subjective Date of Service: 05/16/17 Interval History: Tmax 99.5 at 11pm. Not oriented other than name PICC line removed yesterday. Labs pending. BP up to 170 this AM. Objective Active Medications: Acetaminophen (Tylenol Tab*) 650 mg PO Q4H PRN PRN Reason: FEVER Last Admin: 05/13/17 16:40 Dose: 650 mg Allopurinol (Zyloprim Tab*) 100 mg PO QAM [facility] Last Admin: 05/16/17 09:19 Dose: 100 mg Amlodipine Besylate (Norvasc Tab*) 5 mg PO DAILY [facility] Last Admin: 05/16/17 09:19 Dose: 5 mg Atorvastatin Calcium (Lipitor*) 20 mg PO 1700 [facility] Last Admin: 05/15/17 17:33 Dose: 20 mg Heparin Sodium (Porcine) (Heparin Flush Picc/Ml/Cvc(*)) 0 ml FLUSH 0600,1800 [facility] PRN Reason: Protocol Last Admin: 05/16/17 05:42 Dose: Not Given Heparin Sodium (Porcine) (Heparin Vial(*)) 5,000 units SUBCUT Q8HR [facility] Last Admin: 05/16/17 05:42 Dose: 5,000 units Cefazolin Sodium 2 gm/ Sterile (Water) 20 mls @ 60 mls/hr IVPB Q8H [facility] Last Admin: 05/16/17 09:20 Dose: 60 mls/hr Lorazepam (Ativan Inj*) 0.5 mg IV PUSH Q4H PRN PRN Reason: ANXIETY Last Admin: 05/16/17 00:16 Dose: 0.5 mg Multivitamins (Theragran W/Minerals Liq*) 15 ml PO DAILY [facility] Last Admin: 05/16/17 09:20 Dose: 15 ml Nebivolol (Bystolic Tab (Nf)) 10 mg PO QAM [facility] Last Admin: 05/16/17 09:20 Dose: 10 mg Ondansetron HCl (Zofran Inj*) 4 mg IV Q6H PRN PRN Reason: NAUSEA/VOMITING Last Admin: 05/16/17 09:31 Dose: 4 mg Polyvinyl Alcohol (Polyvinyl Alcohol 1.4% Opth*) 1 drop BOTH EYES Q2H PRN PRN Reason: DRY EYE Last Admin: 05/13/17 16:40 Dose: 1 drop Potassium Chloride (Klor-Con Liquid*) 20 meq PO TID [facility] Last Admin: 05/16/17 09:20 Dose: 20 meq Rifampin (Rifampin Cap*) 600 mg PO DAILY [facility] Last Admin: 05/16/17 09:19 Dose: 600 mg Thiamine HCl (Vitamin B-1 Tab*) 100 mg PO DAILY [facility] Last Admin: 05/16/17 09:20 Dose: 100 mg Vital Signs - 8 hr 05/16/17 07:33 Temperature 98.3 F Pulse Rate 84 Respiratory 18 Rate Blood Pressure 140/66 (mmHg) O2 Sat by Pulse 95 Oximetry Oxygen Devices in Use Now: None Appearance: NAD Eyes: No Scleral Icterus, PERRLA Ears/Nose/Mouth/Throat: NL Teeth, Lips, Gums Neck: NL Appearance and Movements; NL JVP Respiratory: Symmetrical Chest Expansion and Respiratory Effort, Clear to Auscultation Cardiovascular: NL Sounds; No Murmurs; No JVD, RRR Abdominal: NL Sounds; No Tenderness; No Distention, No Hepatosplenomegaly Skin: No Rash or Ulcers, - - midline incision along most of spine, nontender. sutures intact. trace white drainage most inferior aspect. Neurological: - - oriented to name only. Nutrition: Taking PO's Result Diagrams: 05/15/17 08:40 05/15/17 08:40 Additional Lab and Data: Microbiology and Other Data: Microbiology 05/14/17 14:30 Misc Fluid (See Comment) - Abscess Gram Stain - Final 05/14/17 14:30 Misc Fluid (See Comment) - Abscess Body Fluid Culture - Preliminary No Growth Day 2 05/14/17 14:30 Misc Fluid (See Comment) - Abscess Skin and Soft Tissue MRSA/ MSSA (PCR - Final Mrsa Negative S.aureus Positive 05/12/17 01:30 Blood Venous Aerobic Blood Culture - Preliminary No Growth Day 4 05/12/17 01:30 Blood Venous Anaerobic Blood Culture - Preliminary No Growth Day 4 05/12/17 01:30 Blood Venous Aerobic Blood Culture - Preliminary No Growth Day 4 05/12/17 01:30 Blood Venous Anaerobic Blood Culture - Preliminary No Growth Day 4 05/12/17 00:48 Blood Venous Aerobic Blood Culture - Preliminary No Growth Day 4 05/12/17 00:48 Blood Venous Anaerobic Blood Culture - Preliminary No Growth Day 4 05/09/17 17:00 Blood Venous Aerobic Blood Culture - Final No Growth Day 5 05/09/17 17:00 Blood Venous Anaerobic Blood Culture - Final No Growth Day 5 05/09/17 17:00 Blood Venous Aerobic Blood Culture - Final No Growth Day 5 05/09/17 17:00 Blood Venous Anaerobic Blood Culture - Final No Growth Day 5 05/08/17 19:15 Joint Fluid(Synovial) Gram Stain - Final 05/08/17 19:15 Joint Fluid(Synovial) Body Fluid Culture - Final No Growth Day 4 05/08/17 19:15 Joint Fluid(Synovial) Skin and Soft Tissue MRSA/MSSA (PCR - Final Mrsa Negative S.aureus Negative 05/08/17 19:15 Body Fluid Gram Stain - Final 05/08/17 19:15 Body Fluid Body Fluid Culture - Final No Growth Day 4 05/08/17 19:15 Body Fluid Skin and Soft Tissue MRSA/MSSA (PCR - Final Mrsa Negative S.aureus Positive 04/23/17 10:30 Misc Source (See Comment) - Other Fungal Culture - Preliminary 04/27/17 08:00 Blood Venous Aerobic Blood Culture - Final No Growth Day 5 04/27/17 08:00 Blood Venous Anaerobic Blood Culture - Final No Growth Day 5 04/27/17 06:10 Blood Venous Aerobic Blood Culture - Final Staphylococcus Epidermidis 04/27/17 06:10 Blood Venous Anaerobic Blood Culture - Final No Growth Day 5 04/27/17 06:10 Blood Venous Blood MRSA/MSSA (PCR) - Final Mrsa Negative S.aureus Negative 04/26/17 21:00 Wound - Wound Anaerobic Culture - Final 04/26/17 21:00 Wound - Wound Skin and Soft Tissue MRSA/MSSA (PCR - Final Mrsa Negative S.aureus Positive 04/26/17 21:00 Wound - Wound Gram Stain - Final 04/26/17 21:00 Wound - Wound Wound Culture - Final Staphylococcus Aureus 04/23/17 15:53 Wound - Knee Left Anaerobic Culture - Final 04/23/17 15:53 Wound - Knee Left Skin and Soft Tissue MRSA/MSSA (PCR - Final Mrsa Negative S.aureus Positive 04/23/17 15:53 Wound - Knee Left Gram Stain - Final 04/23/17 15:53 Wound - Knee Left Wound Culture - Final Staphylococcus Aureus 04/23/17 10:30 Joint Fluid(Synovial) - Knee Left Gram Stain - Final 04/23/17 10:30 Joint Fluid(Synovial) - Knee Left Body Fluid Culture - Final Staphylococcus Aureus 04/23/17 10:30 Joint Fluid(Synovial) - Knee Left Skin and Soft Tissue MRSA/ MSSA (PCR - Final Mrsa Negative S.aureus Positive 04/22/17 16:56 Wound - Abscess Anaerobic Culture - Final 04/22/17 16:56 Wound - Abscess Skin and Soft Tissue MRSA/MSSA (PCR - Final Mrsa Negative S.aureus Positive 04/22/17 16:56 Wound - Abscess Gram Stain - Final 04/22/17 16:56 Wound - Abscess Wound Culture - Final Staphylococcus Aureus 04/22/17 15:00 Wound - Other Anaerobic Culture - Final 04/22/17 15:00 Misc Source (See Comment) - Other Skin and Soft Tissue MRSA/ MSSA (PCR - Final Mrsa Negative S.aureus Positive 04/22/17 15:00 Misc Source (See Comment) - Other Gram Stain - Final 04/22/17 15:00 Misc Source (See Comment) - Other Wound Culture - Final Staphylococcus Aureus 04/21/17 05:40 Blood Venous Aerobic Blood Culture - Final Staphylococcus Aureus 04/21/17 05:40 Blood Venous Anaerobic Blood Culture - Final Staphylococcus Aureus 04/21/17 05:40 Blood Venous Blood MRSA/MSSA (PCR) - Final Mrsa Negative S.aureus Positive 04/21/17 04:40 Blood Venous Aerobic Blood Culture - Final Staphylococcus Aureus 04/21/17 04:40 Blood Venous Anaerobic Blood Culture - Final Staphylococcus Aureus 04/21/17 04:40 Blood Venous Blood MRSA/MSSA (PCR) - Final Mrsa Negative S.aureus Positive 04/22/17 06:20 Nasal Nasal Screen MRSA (PCR)(KEEGAN) - Final Mrsa Not Detected Assess/Plan/Problems-Billing Mr Bonilla is a 76 yo M with h/o HTN, multiple joint replacements, GI bleed (and partial colon resection due to bleed) who presented to the ER with c/o severe back pain and was ultimately found to a very large epidural abscess, R septic shoulder, L septic knee in the setting of MSSA bacteremia. s/p right psoas abscess drainage 05/14. - Patient Problems (1) Encephalopathy Current Visit: Yes Status: Acute Code(s): G93.40 - ENCEPHALOPATHY, UNSPECIFIED SNOMED Code(s): 50345140 Comment: Likely septic encephalopathy from being septic on admission from the numerous infectious sources. ammonia level wnl. Monitor mental status. consider LP if progress halts. (2) Epidural abscess Current Visit: Yes Status: Acute Code(s): G06.2 - EXTRADURAL AND SUBDURAL ABSCESS, UNSPECIFIED SNOMED Code(s): 10921902 Comment: The patient presented with a very large epidural abscess. He underwent multilevel skip laminectomies at C6-7, T2, T3, T5, T6, T8, T9, T10, T12, L3, L4, L5 on 04/22/17. Continue rifampin and ancef per Dr. Franklin. appreciate Neurosurgery recs. May be seroma vs abscess on recent MRI and CT imaging from lower cervical to thoracolumbar junction. aborted IR drainage 05/14 attempt as pt could not be positioned and IR uncomfortable taking off his dressing. (3) MSSA bacteremia Current Visit: Yes Status: Acute Code(s): R78.81 - BACTEREMIA SNOMED Code( s): 115673818 Comment: The patient was bacteremic from at least 04/21/17. Follow up blood cultures from 05/09/17 are negative so far. Had additional set 05/11 PM NGTD . Continue rifampin and ancef per Dr. Franklin. still elevated CRP. PICC line removed 05/15 as found biting it. needs replaced when able. s/p R psoas muscle abscess drainage 05/14. MSSA (4) Septic arthritis of knee, left Current Visit: Yes Status: Acute Code(s): M00.9 - PYOGENIC ARTHRITIS, UNSPECIFIED SNOMED Code(s): 043514230 Comment: The patient is s/p washout/debridement and liner exchange of the left knee total arthroplasty 04/23/17. Left knee aspiration on 05/08/17 has no growth so far. Continue ancef and rifampin per Dr. Franklin. (5) Septic arthritis of shoulder, right Current Visit: Yes Status: Acute Code(s): M00.9 - PYOGENIC ARTHRITIS, UNSPECIFIED SNOMED Code(s): 80288331 Comment: The patient is s/p washout/debridement of R shoulder 04/26/17. Dr. Galan has considered taking the patient back to the OR for repeat washout of the shoulder but is currently holding on this. Aspiration of the R shoulder 05/08 has no growth though the PCR is positive for MSSA. Continue ancef and rifampin. (6) DVT prophylaxis Current Visit: Yes Status: Acute Code(s): HLC8095 - SNOMED Code(s): 780574619 Comment: SQ heparin (7) Gout Current Visit: Yes Status: Acute Code(s): M10.9 - GOUT, UNSPECIFIED SNOMED Code(s): 59858084 Comment: allopurinol (8) Anemia Current Visit: Yes Status: Acute Code(s): D64.9 - ANEMIA, UNSPECIFIED SNOMED Code(s): 410915831 Comment: anemia of chronic disease. asymptomatic but on border of transfusion consideration. hgb 6.9 yesterday await today. Status and Disposition: medicine inpatient.
--- NOTE | 2017-05-16 13:03 | PN ---
Progress Note - Progress Note Date of Service: 05/16/17 SOAP: Subjective: []No events ON. Tolerates po. On Abx IV. No drainage from wound. Objective: []VSS Afebrile Wound s,c,d, No discharge on dressing lower lumbar. No redness, No active drainage. No drainage after pressure AAOx2, RADHA, Face symmetric, tongue midline. Nichole spontaneously, Follows command. 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 Can bend both knees 3-4/5, Exam limited due to mental status, previous surgical interventions. Sensory grossly intact to light touch Assessment: []76 yom POD#3 multilevel laminectomies for holospinal epidural abscess Plan: [] Monitor VS, Neurochecks. Monitor wound. Wound dressing changes daily. Continue with regular dressing changes daily and consider aquaseal if needed. Monitor labs. Keep sutures for 6 weeks. PT/OT when able to participate. Abx per ID Appreciate ID, IM, Orthopedic care. Armond Melendrez MD
[2017-05-16] MEDS: Atorvastatin* 20 MG TAB PO SCH (17:05)
[2017-05-16] MEDS: Ciprofloxacin 0.3% OPTH.SOL* 2.5 ML BTL LEFT EYE SCH ×3 (19:29→22:15)
[2017-05-16 20:15] LABS: ABS Basophils 0.1 10^3/ul (0-0.2); ABS Eosinophils 0.6 10^3/ul (0-0.6); ABS Lymphocytes 0.9 10^3/ul (1.0-4.8); ABS Monocytes 0.8 10^3/ul (0-0.8); ABS Neutrophils 5.8 10^3/ul (1.5-7.7); ABS Nucleated RBC 0 10^3/ul; Eosinophil % 7.6 % (0-6); Hematocrit 22 % (42-52); Hemoglobin 7.3 g/dl (14.0-18.0); Lymphocyte % 11.5 % (25-47); Mean Corpuscular HGB Conc 33 g/dl (31-36); Mean Corpuscular Hemoglobin 30 pg (27-31); Mean Corpuscular Volume 91 fL (80-94); Mean Platelet Volume 6.6 um3 (7.4-10.4); Nucleated Red Blood Cells % 0; Platelet Count 356 10^3/ul (150-450); Red Blood Count 2.44 10^6/ul (4.0-5.4); Red Cell Distribution Width 16 % (10.5-15); White Blood Count 8.2 10^3/ul (3.5-10.8)
[2017-05-16 20:35] LABS: EGFR Non-African American 78.4 (>60)
[2017-05-17] MEDS: Ciprofloxacin 0.3% OPTH.SOL* 2.5 ML BTL LEFT EYE SCH ×14 (00:32→23:48)
[2017-05-17] MEDS: ceFAZolin 2 GM/20 ML SYRINGE IVPB Q8H IVPB SCH ×6 (00:34→16:37)
[2017-05-17] MEDS: LORazepam INJ* 2 MG/ML 1 ML VIAL IV PUSH PRN (04:41)
[2017-05-17] MEDS: Heparin VIAL(*) 5000 UNITS/ML VIAL (FIVE THOUSAND) SUBCUT SCH ×3 (05:50→22:45)
[2017-05-17 06:39] LABS: Hematocrit 21 % (42-52); Hemoglobin 7.1 g/dl (14.0-18.0); Mean Corpuscular HGB Conc 33 g/dl (31-36); Mean Corpuscular Hemoglobin 30 pg (27-31); Mean Corpuscular Volume 91 fL (80-94); Mean Platelet Volume 6.8 um3 (7.4-10.4); Platelet Count 331 10^3/ul (150-450); Red Blood Count 2.33 10^6/ul (4.0-5.4); Red Cell Distribution Width 16 % (10.5-15); White Blood Count 6.6 10^3/ul (3.5-10.8)
[2017-05-17 06:53] LABS: EGFR Non-African American 83.6 (>60)
[2017-05-17] MEDS ORDERED: Magnesium Sulfate IV* 3 GM in NS 0.9% 100 ML* 100 ML IVPB ONE (07:16)
[2017-05-17] MEDS ORDERED: Magnesium Sulfate 2 GM IV IVPB ONE (07:30)
[2017-05-17 08:18] LABS: ABS Basophils 0 10^3/ul (0-0.2); ABS Eosinophils 0.6 10^3/ul (0-0.6); ABS Lymphocytes 0.9 10^3/ul (1.0-4.8); ABS Monocytes 0.7 10^3/ul (0-0.8); ABS Neutrophils 4.3 10^3/ul (1.5-7.7); ABS Nucleated RBC 0 10^3/ul; Nucleated Red Blood Cells % 0
[2017-05-17 08:23] LABS: Monocytes % 8 % (0-7)
[2017-05-17] MEDS ORDERED: Magnesium Sulfate 1 GM IV* 1 GM/100 ML BAG IV ONE (08:30)
[2017-05-17] MEDS ORDERED: Docusate CAP* 100 MG PO PRN (08:33)
--- NOTE | 2017-05-17 08:37 | PN ---
Progress Note - Progress Note Date of Service: 05/17/17 SOAP: Subjective: 76 y/o male with epidural, R shoulder, L knee abscess/ infection s/p washout, hardware removal, I&D. Pelvic abscess drained 05/14- cx's + staph A. VSS, afebrile overnight. Objective: General- Fatigued, answers questions however non-sensical at times. Lying in bed. MSK- R shoulder- I c/d/i, ROm Ff 80, ABd 70, ext 30 int 40. decreased edema distal extremity. L knee- i c/d/i, mild joint effusion, no erythema/ + mild warmth. ROm 0-30. B/L hips - ROm ~70 flexion without pain, tenderness. Vital Signs Temp 97.6 F 05/17/17 07:20 Pulse 85 05/17/17 07:20 Resp 20 05/17/17 07:20 BP 143/69 05/17/17 07:20 Pulse Ox 99 05/17/17 07:20 Intake & Output 05/16/17 05/17/17 05/17/17 18:59 06:59 18:59 Intake Total 320 40 Output Total 750 Balance -430 40 Intake: IV Fluids 20 NS (0.9%) 20 IVPB 20 20 ABX - CEFAZOLIN 20 20 Oral 300 0 Output: Urine 750 Other: Estimated Void Small Large # Bowel Movements 0 # Voids 1 1 Assessment: Stable POD 24 open I&D left knee, e/o liner POD 21 arthroscopic I&D right shoulder Plan: - ABX per ID - cipro, cefazolin - CRP elevated - Appreciate hosp, neuro, ID care. - Recent pelvic abscess drainage 05/14- + MSSA, no Cxs/sens back yet. Active Medications Generic Name Dose Route Start Last Admin Trade Name Freq PRN Reason Stop Dose Admin Acetaminophen 650 mg 05/11/17 23:43 05/13/17 16:40 Tylenol Tab* PO 650 mg Q4H PRN Administration FEVER Allopurinol 100 mg 04/22/17 09:00 05/17/17 08:42 Zyloprim Tab* PO 100 mg QAM MIKE Administration Amlodipine Besylate 5 mg 05/16/17 09:00 05/17/17 08:42 Norvasc Tab* PO 5 mg DAILY MIKE Administration Atorvastatin Calcium 20 mg 05/07/17 17:00 05/16/17 17:05 Lipitor* PO 20 mg 1700 MIKE Administration Ciprofloxacin HCl 1 drop 05/16/17 18:00 05/17/17 08:47 Cipro 0.3% Opth* LEFT EYE 1 drop Q2HR MIKE Administration Docusate Sodium 100 mg 05/17/17 08:33 Colace Cap* PO DAILY PRN CONSTIPATION Heparin Sodium (Porcine) 0 ml 05/02/17 18:00 05/17/17 05:51 Heparin Flush Picc/Ml/Cvc(*) FLUSH Not Given 0600,1800 [facility] Protocol Heparin Sodium (Porcine) 5,000 units 05/14/17 22:00 05/17/17 05:50 Heparin Vial(*) SUBCUT 5,000 units Q8HR MIKE Administration Cefazolin Sodium 2 gm/ Sterile 20 mls @ 60 mls/hr 05/04/17 17:00 05/17/17 00: 34 Water IVPB 60 mls/hr Q8H MIKE Administration Multivitamins 15 ml 04/23/17 09:00 05/17/17 08:47 Theragran W/Minerals Liq* PO 15 ml DAILY MIKE Administration Nebivolol 10 mg 04/22/17 09:00 05/17/17 08:44 Bystolic Tab (Nf) PO 10 mg QAM MIKE Administration Ondansetron HCl 4 mg 04/22/17 22:01 05/16/17 09:31 Zofran Inj* IV 4 mg Q6H PRN Administration NAUSEA/VOMITING Polyethylene Glycol/Electrolytes 17 gm 05/17/17 09:00 Miralax* PO DAILY MIKE Polyvinyl Alcohol 1 drop 05/13/17 15:43 05/13/17 16:40 Polyvinyl Alcohol 1.4% Opth* BOTH EYES 1 drop Q2H PRN Administration DRY EYE Potassium Chloride 20 meq 05/08/17 14:00 05/17/17 08:47 Klor-Con Liquid* PO 20 meq TID MIKE Administration Rifampin 600 mg 05/15/17 09:00 05/17/17 08:42 Rifampin Cap* PO 600 mg DAILY MIKE Administration Thiamine HCl 100 mg 04/22/17 09:00 05/17/17 08:43 Vitamin B-1 Tab* PO 100 mg DAILY MIKE Administration <Layla Hyde - Last Filed: 05/17/17 10:02> - Progress Note SOAP: Subjective: Patient is unsure what hurts most. Psoas abscess drained Charles. Objective: Patient is much more articulate today. He can string together entire sentences , multiple, that make sense and are understandable. RUE: Unchanged PROM- 90 FF, ER 10, IR 80 with abduction LLE: AROM 0-70. I didn't push too hard so PROM was the same 0-70. CRP still increasing. Assessment: POD 24 open I&D left knee, e/o liner POD 21 arthroscopic I&D right shoulder Plan: - Continue IV abx - Elevation, continued, of CRP in setting of clearing of encephalopathy is concerning for possible undertreated infection somewhere - PT fo out of bed, walking, ROM R shoulder and L knee - Continue to follow <Doc Galan - Last Filed: 05/17/17 19:08>
[2017-05-17] MEDS: amLODIPine TAB* 5 MG PO SCH (08:42)
[2017-05-17] MEDS: RiFAMPin CAP* 300 MG CAP PO SCH (08:42)
[2017-05-17] MEDS: Allopurinol TAB* 100 MG PO SCH (08:42)
[2017-05-17] MEDS: Thiamine TAB* 100 MG TAB PO SCH (08:43)
[2017-05-17] MEDS: CMCS: Nebivolol TAB (NF) 2.5 MG TAB PO SCH (08:44)
[2017-05-17] MEDS: Multivitamins ADULT w/MIN LIQ* 15 ML UDC PO SCH (08:47)
[2017-05-17] MEDS: Potassium Chloride LIQUID* 20 MEQ PACKET PO SCH ×3 (08:47→22:54)
--- NOTE | 2017-05-17 10:09 | PN ---
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 Feels well, out of bed with PT. No fever, rash, or diarrhea. Objective: Vital Signs Temp 36.4 C 05/17/17 07:20 Pulse 85 05/17/17 07:20 Resp 20 05/17/17 07:20 BP 143/69 05/17/17 07:20 Pulse Ox 99 05/17/17 07:20 Intake & Output 05/16/17 05/17/17 05/17/17 18:59 06:59 18:59 Intake Total 320 40 0 Output Total 750 Balance -430 40 0 Intake: IV Fluids 20 NS (0.9%) 20 IVPB 20 20 ABX - CEFAZOLIN 20 20 Oral 300 0 0 Output: Urine 750 Other: Estimated Void Small Large # Bowel Movements 0 # Voids 1 1 Gen:no distress Neuro: asleep; opens eyes to voice HEENT:PERRL, MMD Heart:RRR no murmur Lungs:clear to auscultation Abd:+ BS NTND soft Skin: no rash; spine incision intact MSK: L knee no effusion, mild edema, incision intact Microbiology 05/14/17 14:30 Gram Stain - Final Misc Fluid (See Comment) - Abscess Body Fluid Culture - Preliminary No Growth Day 2 Skin and Soft Tissue MRSA/MSSA (PCR - Final Mrsa Negative S.aureus Positive 05/12/17 01:30 Aerobic Blood Culture - Final Blood Venous No Growth Day 5 Anaerobic Blood Culture - Final No Growth Day 5 05/12/17 01:30 Aerobic Blood Culture - Final Blood Venous No Growth Day 5 Anaerobic Blood Culture - Final No Growth Day 5 05/12/17 00:48 Aerobic Blood Culture - Final Blood Venous No Growth Day 5 Anaerobic Blood Culture - Final No Growth Day 5 Assessment: 1. MSSA bacteremia, cleared. 2. MSSA epidural abscess s/p I&D; psoas abscess s/p IR drain 05/14 PCR pos but culture negative (likely reflected Staph) 4. 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 MSSA septic right shoulder s/p I&D 6. presence bilateral hip arthroplasties 7. Elevated CRP Plan: 1. 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
[2017-05-17] MEDS: Polyethylene Glycol 3350* 17 GM PACKET PO SCH (10:20)
--- NOTE | 2017-05-17 15:53 | PN ---
Subjective Date of Service: 05/17/17 Interval History: denies complaints. Used EZ Stand instead of Roxy to transfer to recliner. PICC being placed. Objective Active Medications: Acetaminophen (Tylenol Tab*) 650 mg PO Q4H PRN PRN Reason: FEVER Last Admin: 05/13/17 16:40 Dose: 650 mg Allopurinol (Zyloprim Tab*) 100 mg PO QAM [facility] Last Admin: 05/17/17 08:42 Dose: 100 mg Amlodipine Besylate (Norvasc Tab*) 5 mg PO DAILY [facility] Last Admin: 05/17/17 08:42 Dose: 5 mg Atorvastatin Calcium (Lipitor*) 20 mg PO 1700 [facility] Last Admin: 05/16/17 17:05 Dose: 20 mg Ciprofloxacin HCl (Cipro 0.3% Opth*) 1 drop LEFT EYE Q2HR [facility] Last Admin: 05/17/17 15:09 Dose: Not Given Docusate Sodium (Colace Cap*) 100 mg PO DAILY PRN PRN Reason: CONSTIPATION Heparin Sodium (Porcine) (Heparin Flush Picc/Ml/Cvc(*)) 0 ml FLUSH 0600,1800 [facility] PRN Reason: Protocol Last Admin: 05/17/17 05:51 Dose: Not Given Heparin Sodium (Porcine) (Heparin Vial(*)) 5,000 units SUBCUT Q8HR [facility] Last Admin: 05/17/17 05:50 Dose: 5,000 units Cefazolin Sodium 2 gm/ Sterile (Water) 20 mls @ 60 mls/hr IVPB Q8H [facility] Last Admin: 05/17/17 10:10 Dose: 60 mls/hr Multivitamins (Theragran W/Minerals Liq*) 15 ml PO DAILY [facility] Last Admin: 05/17/17 08:47 Dose: 15 ml Nebivolol (Bystolic Tab (Nf)) 10 mg PO QAM [facility] Last Admin: 05/17/17 08:44 Dose: 10 mg Ondansetron HCl (Zofran Inj*) 4 mg IV Q6H PRN PRN Reason: NAUSEA/VOMITING Last Admin: 05/16/17 09:31 Dose: 4 mg Polyethylene Glycol/Electrolytes (Miralax*) 17 gm PO DAILY [facility] Last Admin: 05/17/17 10:20 Dose: 17 gm Polyvinyl Alcohol (Polyvinyl Alcohol 1.4% Opth*) 1 drop BOTH EYES Q2H PRN PRN Reason: DRY EYE Last Admin: 05/13/17 16:40 Dose: 1 drop Potassium Chloride (Klor-Con Liquid*) 20 meq PO TID [facility] Last Admin: 05/17/17 08:47 Dose: 20 meq Rifampin (Rifampin Cap*) 600 mg PO DAILY [facility] Last Admin: 05/17/17 08:42 Dose: 600 mg Thiamine HCl (Vitamin B-1 Tab*) 100 mg PO DAILY [facility] Last Admin: 05/17/17 08:43 Dose: 100 mg Vital Signs - 8 hr 05/17/17 05/17/17 08:00 11:04 Temperature 98.9 F Pulse Rate 77 Respiratory 25 16 Rate Blood Pressure 139/70 (mmHg) O2 Sat by Pulse 99 98 Oximetry Oxygen Devices in Use Now: None Appearance: NAD, scab at right pentecostal(stable) Eyes: No Scleral Icterus, PERRLA Neck: NL Appearance and Movements; NL JVP, Trachea Midline Respiratory: Symmetrical Chest Expansion and Respiratory Effort, Clear to Auscultation Cardiovascular: NL Sounds; No Murmurs; No JVD, RRR Abdominal: NL Sounds; No Tenderness; No Distention, No Hepatosplenomegaly Extremities: No Edema, - - e/o retained hardware left leg. Neurological: - - Oriented to name but not place or year(1987) or season (fall) Nutrition: Taking PO's Result Diagrams: 05/17/17 06:16 05/17/17 06:19 Additional Lab and Data: Laboratory Results - last 24 hr 05/16/17 05/16/17 05/17/17 20:07 20:07 06:16 WBC 8.2 6.6 RBC 2.44 L 2.33 L Hgb 7.3 L 7.1 L Hct 22 L 21 L MCV 91 91 MCH 30 30 MCHC 33 33 RDW 16 H 16 H Plt Count 356 331 MPV 6.6 L 6.8 L Neut % (Auto) 70.6 Not Reportable Lymph % (Auto) 11.5 L Not Reportable [place] % (Auto) 9.3 H Not Reportable Eos % (Auto) 7.6 H Not Reportable Baso % (Auto) 1.0 Not Reportable Absolute Neuts (auto) 5.8 4.3 Absolute Lymphs (auto) 0.9 L 0.9 L Absolute Monos (auto) 0.8 0.7 Absolute Eos (auto) 0.6 0.6 Absolute Basos (auto) 0.1 0 Absolute Nucleated RBC 0 0 Immature Gran % 5 Neutrophils % 72 Lymphocytes % 11 L Monocytes % 8 H Eosinophils % 4 Basophils % 0 Metamyelocytes % 1 Myelocytes % 4 H Nucleated RBC % 0 0 Abs Neuts (Manual) 4.8 Abs Lymphs (Manual) 0.7 L Abs Monocytes (Manual) 0.5 Absolute Eos (Manual) 0.3 Abs Basophils (Manual) 0 Normal RBC Morphology Normal Sodium 139 Potassium 4.0 Chloride 106 Carbon Dioxide 24 Anion Gap 9 BUN 11 Creatinine 0.94 Est GFR ( Amer) 100.9 Est GFR (Non-Af Amer) 78.4 BUN/Creatinine Ratio 11.7 Glucose 82 Calcium 7.7 L Magnesium 1.8 L C-Reactive Protein 05/17/17 06:19 WBC RBC Hgb Hct MCV MCH MCHC RDW Plt Count MPV Neut % (Auto) Lymph % (Auto) [place]well % (Auto) Eos % (Auto) Baso % (Auto) Absolute Neuts (auto) Absolute Lymphs (auto) Absolute Monos (auto) Absolute Eos (auto) Absolute Basos (auto) Absolute Nucleated RBC Immature Gran % Neutrophils % Lymphocytes % Monocytes % Eosinophils % Basophils % Metamyelocytes % Myelocytes % Nucleated RBC % Abs Neuts (Manual) Abs Lymphs (Manual) Abs Monocytes (Manual) Absolute Eos (Manual) Abs Basophils (Manual) Normal RBC Morphology Sodium 140 Potassium 3.4 L Chloride 106 Carbon Dioxide 24 Anion Gap 10 BUN 11 Creatinine 0.89 Est GFR ( Amer) 107.5 Est GFR (Non-Af Amer) 83.6 BUN/Creatinine Ratio 12.4 Glucose 69 L Calcium 7.8 L Magnesium 1.7 L C-Reactive Protein 113.15 H Microbiology and Other Data: Microbiology 04/23/17 10:30 Misc Source (See Comment) - Other Fungal Culture - Preliminary 05/14/17 14:30 Misc Fluid (See Comment) - Abscess Gram Stain - Final 05/14/17 14:30 Misc Fluid (See Comment) - Abscess Body Fluid Culture - Preliminary No Growth Day 2 05/14/17 14:30 Misc Fluid (See Comment) - Abscess Skin and Soft Tissue MRSA/ MSSA (PCR - Final Mrsa Negative S.aureus Positive 05/12/17 01:30 Blood Venous Aerobic Blood Culture - Final No Growth Day 5 05/12/17 01:30 Blood Venous Anaerobic Blood Culture - Final No Growth Day 5 05/12/17 01:30 Blood Venous Aerobic Blood Culture - Final No Growth Day 5 05/12/17 01:30 Blood Venous Anaerobic Blood Culture - Final No Growth Day 5 05/12/17 00:48 Blood Venous Aerobic Blood Culture - Final No Growth Day 5 05/12/17 00:48 Blood Venous Anaerobic Blood Culture - Final No Growth Day 5 05/09/17 17:00 Blood Venous Aerobic Blood Culture - Final No Growth Day 5 05/09/17 17:00 Blood Venous Anaerobic Blood Culture - Final No Growth Day 5 05/09/17 17:00 Blood Venous Aerobic Blood Culture - Final No Growth Day 5 05/09/17 17:00 Blood Venous Anaerobic Blood Culture - Final No Growth Day 5 05/08/17 19:15 Joint Fluid(Synovial) Gram Stain - Final 05/08/17 19:15 Joint Fluid(Synovial) Body Fluid Culture - Final No Growth Day 4 05/08/17 19:15 Joint Fluid(Synovial) Skin and Soft Tissue MRSA/MSSA (PCR - Final Mrsa Negative S.aureus Negative 05/08/17 19:15 Body Fluid Gram Stain - Final 05/08/17 19:15 Body Fluid Body Fluid Culture - Final No Growth Day 4 05/08/17 19:15 Body Fluid Skin and Soft Tissue MRSA/MSSA (PCR - Final Mrsa Negative S.aureus Positive 04/27/17 08:00 Blood Venous Aerobic Blood Culture - Final No Growth Day 5 04/27/17 08:00 Blood Venous Anaerobic Blood Culture - Final No Growth Day 5 04/27/17 06:10 Blood Venous Aerobic Blood Culture - Final Staphylococcus Epidermidis 04/27/17 06:10 Blood Venous Anaerobic Blood Culture - Final No Growth Day 5 04/27/17 06:10 Blood Venous Blood MRSA/MSSA (PCR) - Final Mrsa Negative S.aureus Negative 04/26/17 21:00 Wound - Wound Anaerobic Culture - Final 04/26/17 21:00 Wound - Wound Skin and Soft Tissue MRSA/MSSA (PCR - Final Mrsa Negative S.aureus Positive 04/26/17 21:00 Wound - Wound Gram Stain - Final 04/26/17 21:00 Wound - Wound Wound Culture - Final Staphylococcus Aureus 04/23/17 15:53 Wound - Knee Left Anaerobic Culture - Final 04/23/17 15:53 Wound - Knee Left Skin and Soft Tissue MRSA/MSSA (PCR - Final Mrsa Negative S.aureus Positive 04/23/17 15:53 Wound - Knee Left Gram Stain - Final 04/23/17 15:53 Wound - Knee Left Wound Culture - Final Staphylococcus Aureus 04/23/17 10:30 Joint Fluid(Synovial) - Knee Left Gram Stain - Final 04/23/17 10:30 Joint Fluid(Synovial) - Knee Left Body Fluid Culture - Final Staphylococcus Aureus 04/23/17 10:30 Joint Fluid(Synovial) - Knee Left Skin and Soft Tissue MRSA/ MSSA (PCR - Final Mrsa Negative S.aureus Positive 04/22/17 16:56 Wound - Abscess Anaerobic Culture - Final 04/22/17 16:56 Wound - Abscess Skin and Soft Tissue MRSA/MSSA (PCR - Final Mrsa Negative S.aureus Positive 04/22/17 16:56 Wound - Abscess Gram Stain - Final 04/22/17 16:56 Wound - Abscess Wound Culture - Final Staphylococcus Aureus 04/22/17 15:00 Wound - Other Anaerobic Culture - Final 04/22/17 15:00 Misc Source (See Comment) - Other Skin and Soft Tissue MRSA/ MSSA (PCR - Final Mrsa Negative S.aureus Positive 04/22/17 15:00 Misc Source (See Comment) - Other Gram Stain - Final 04/22/17 15:00 Misc Source (See Comment) - Other Wound Culture - Final Staphylococcus Aureus 04/21/17 05:40 Blood Venous Aerobic Blood Culture - Final Staphylococcus Aureus 04/21/17 05:40 Blood Venous Anaerobic Blood Culture - Final Staphylococcus Aureus 04/21/17 05:40 Blood Venous Blood MRSA/MSSA (PCR) - Final Mrsa Negative S.aureus Positive 04/21/17 04:40 Blood Venous Aerobic Blood Culture - Final Staphylococcus Aureus 04/21/17 04:40 Blood Venous Anaerobic Blood Culture - Final Staphylococcus Aureus 04/21/17 04:40 Blood Venous Blood MRSA/MSSA (PCR) - Final Mrsa Negative S.aureus Positive 04/22/17 06:20 Nasal Nasal Screen MRSA (PCR)(KEEGAN) - Final Mrsa Not Detected Assess/Plan/Problems-Billing Mr Bonilla is a 76 yo M with h/o HTN, multiple joint replacements, GI bleed (and partial colon resection due to bleed) who presented to the ER with c/o severe back pain and was ultimately found to a very large epidural abscess, R septic shoulder, L septic knee in the setting of MSSA bacteremia s/p drainage. s/p right psoas abscess drainage 05/14. Still not back to baseline mental status. - Patient Problems (1) Encephalopathy Current Visit: Yes Status: Acute Code(s): G93.40 - ENCEPHALOPATHY, UNSPECIFIED SNOMED Code(s): 73165825 Comment: Likely septic encephalopathy from being septic on admission from the numerous infectious sources. ammonia level wnl. Monitor mental status. (2) Epidural abscess Current Visit: Yes Status: Acute Code(s): G06.2 - EXTRADURAL AND SUBDURAL ABSCESS, UNSPECIFIED SNOMED Code(s): 04712146 Comment: The patient presented with a very large epidural abscess. He underwent multilevel skip laminectomies at C6-7, T2, T3, T5, T6, T8, T9, T10, T12, L3, L4, L5 on 04/22/17. Continue rifampin and ancef per Dr. Franklin. appreciate Neurosurgery recs. May be seroma vs abscess on recent MRI and CT imaging from lower cervical to thoracolumbar junction. aborted IR drainage 05/14 attempt as pt could not be positioned and IR uncomfortable taking off his dressing. Was relatively small on those images. CRP still slowly climbing. (3) MSSA bacteremia Current Visit: Yes Status: Acute Code(s): R78.81 - BACTEREMIA SNOMED Code( s): 858529125 Comment: The patient was bacteremic from at least 04/21/17. Follow up blood cultures from 05/09/17 are negative so far. Had additional set 05/11 PM NGTD . Continue rifampin and ancef per Dr. Franklin. still elevated CRP. PICC line removed 05/15 as found biting it. getting replaced today s/p R psoas muscle abscess drainage 05/14. MSSA on PCR but no growth on culture. (4) Septic arthritis of knee, left Current Visit: Yes Status: Acute Code(s): M00.9 - PYOGENIC ARTHRITIS, UNSPECIFIED SNOMED Code(s): 276089184 Comment: The patient is s/p washout/debridement and liner exchange of the left knee total arthroplasty 04/23/17. Left knee aspiration on 05/08/17 has no growth so far. Continue ancef and rifampin per Dr. Franklin. (5) Septic arthritis of shoulder, right Current Visit: Yes Status: Acute Code(s): M00.9 - PYOGENIC ARTHRITIS, UNSPECIFIED SNOMED Code(s): 66619372 Comment: The patient is s/p washout/debridement of R shoulder 04/26/17. Dr. Galan has considered taking the patient back to the OR for repeat washout of the shoulder but is currently holding on this. Aspiration of the R shoulder 05/08 has no growth though the PCR is positive for MSSA. Continue ancef and rifampin. (6) DVT prophylaxis Current Visit: Yes Status: Acute Code(s): GBG6985 - SNOMED Code(s): 282005443 Comment: SQ heparin (7) Gout Current Visit: Yes Status: Acute Code(s): M10.9 - GOUT, UNSPECIFIED SNOMED Code(s): 46485758 Comment: allopurinol (8) Anemia Current Visit: Yes Status: Acute Code(s): D64.9 - ANEMIA, UNSPECIFIED SNOMED Code(s): 369023773 Comment: anemia of chronic disease. asymptomatic but on border of transfusion consideration. hgb 7.1 Status and Disposition: medicine inpatient.
[2017-05-17] MEDS: Atorvastatin* 20 MG TAB PO SCH ×2 (16:36→17:51)
--- NOTE | 2017-05-17 18:13 | PN ---
Progress Note - Progress Note Date of Service: 05/17/17 SOAP: Subjective: []No events ON. Tolerates po. On Abx IV. No drainage from wound. Ativan was given earlier today Objective: [] VSS Afebrile Wound s,c,d, No discharge on dressing lower lumbar. No redness, No active drainage. AAOx2, RADHA, Face symmetric, tongue midline. Nichole spontaneously, Follows command. 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 Can bend both knees 3-4/5, Exam limited due to mental status, previous surgical interventions. Sensory grossly intact to light touch Assessment: []]76 yom POD#24 multilevel laminectomies for holospinal epidural abscess Plan: []Monitor VS, Neurochecks. Monitor wound. Wound dressing changes daily. Continue with regular dressing changes daily and consider aquaseal if needed. Monitor labs. WBC 6K Keep sutures for 6 weeks. PT/OT when able to participate. Abx per ID Appreciate ID, IM, Orthopedic care. Armond Melendrez MD
[2017-05-18] MEDS: ceFAZolin 2 GM/20 ML SYRINGE IVPB Q8H IVPB SCH ×6 (00:58→16:47)
[2017-05-18] MEDS: Ciprofloxacin 0.3% OPTH.SOL* 2.5 ML BTL LEFT EYE SCH ×9 (02:25→18:06)
[2017-05-18] MEDS: Heparin VIAL(*) 5000 UNITS/ML VIAL (FIVE THOUSAND) SUBCUT SCH ×3 (04:28→20:41)
[2017-05-18 04:39] LABS: ABS Basophils 0.1 10^3/ul (0-0.2); ABS Eosinophils 0.5 10^3/ul (0-0.6); ABS Monocytes 0.8 10^3/ul (0-0.8); ABS Neutrophils 4.1 10^3/ul (1.5-7.7); ABS Nucleated RBC 0 10^3/ul; Eosinophil % 7.2 % (0-6); Hematocrit 20 % (42-52); Hemoglobin 6.5 g/dl (14.0-18.0); Lymphocyte % 14.9 % (25-47); Mean Corpuscular HGB Conc 33 g/dl (31-36); Mean Corpuscular Hemoglobin 30 pg (27-31); Mean Corpuscular Volume 90 fL (80-94); Mean Platelet Volume 6.6 um3 (7.4-10.4); Nucleated Red Blood Cells % 0; Platelet Count 306 10^3/ul (150-450); Red Blood Count 2.17 10^6/ul (4.0-5.4); Red Cell Distribution Width 16 % (10.5-15); White Blood Count 6.4 10^3/ul (3.5-10.8)
[2017-05-18 04:54] LABS: EGFR Non-African American 91.8 (>60)
[2017-05-18] MEDS: Allopurinol TAB* 100 MG PO SCH (08:45)
[2017-05-18] MEDS: RiFAMPin CAP* 300 MG CAP PO SCH (08:45)
[2017-05-18] MEDS: Multivitamins ADULT w/MIN LIQ* 15 ML UDC PO SCH (08:45)
[2017-05-18] MEDS: Thiamine TAB* 100 MG TAB PO SCH (08:46)
[2017-05-18] MEDS: CMCS: Nebivolol TAB (NF) 2.5 MG TAB PO SCH (08:47)
[2017-05-18] MEDS: Polyethylene Glycol 3350* 17 GM PACKET PO SCH (08:49)
[2017-05-18] MEDS: Potassium Chloride LIQUID* 20 MEQ PACKET PO SCH ×3 (08:49→20:41)
[2017-05-18] MEDS: amLODIPine TAB* 5 MG PO SCH (08:50)
--- NOTE | 2017-05-18 12:15 | PN ---
Progress Note - Progress Note Date of Service: 05/18/17 SOAP: Subjective: []Patient seen OOB in chair. He carries on conversation today though he remains confused. Denies any pain of knee or shoulder, though after PROM he offers the numbers 25 and 35 without coinciding expression of severe pain when asked his pain scale from 1-10. CRP trending up, white count remains stable. Temp of 100.2 today. Objective: [] Temp Pulse Resp BP Pulse Ox 100.2 F 85 18 160/103 100 05/18/17 11:10 05/18/17 11:10 05/18/17 11:10 05/18/17 11:10 05/18/17 11:10 Laboratory Last Values WBC 6.4 10^3/ul (3.5-10.8) 05/18/17 04:20 RBC 2.17 10^6/ul (4.0-5.4) L 05/18/17 04:20 Hgb 6.5 g/dl (14.0-18.0) L 05/18/17 04:20 Hct 20 % (42-52) L 05/18/17 04:20 MCV 90 fL (80-94) 05/18/17 04:20 MCH 30 pg (27-31) 05/18/17 04:20 MCHC 33 g/dl (31-36) 05/18/17 04:20 RDW 16 % (10.5-15) H 05/18/17 04:20 Plt Count 306 10^3/ul (150-450) 05/18/17 04:20 MPV 6.6 um3 (7.4-10.4) L 05/18/17 04:20 Neut % (Auto) 64.7 % (38-83) 05/18/17 04:20 Lymph % (Auto) 14.9 % (25-47) L 05/18/17 04:20 Tate % (Auto) 12.4 % (0-7) H 05/18/17 04:20 Eos % (Auto) 7.2 % (0-6) H 05/18/17 04:20 Baso % (Auto) 0.8 % (0-2) 05/18/17 04:20 Absolute Neuts (auto) 4.1 10^3/ul (1.5-7.7) 05/18/17 04:20 Absolute Lymphs (auto) 1.0 10^3/ul (1.0-4.8) 05/18/17 04:20 Absolute Monos (auto) 0.8 10^3/ul (0-0.8) 05/18/17 04:20 Absolute Eos (auto) 0.5 10^3/ul (0-0.6) 05/18/17 04:20 Absolute Basos (auto) 0.1 10^3/ul (0-0.2) 05/18/17 04:20 Absolute Nucleated RBC 0 10^3/ul 05/18/17 04:20 Immature Gran % 5 % (0-9) 05/17/17 06:16 Neutrophils % 72 % (38-83) 05/17/17 06:16 Band Neutrophils % 1 % (0-8) 04/30/17 05:38 Lymphocytes % 11 % (25-47) L 05/17/17 06:16 Monocytes % 8 % (0-7) H 05/17/17 06:16 Eosinophils % 4 % (0-6) 05/17/17 06:16 Basophils % 0 % (0-2) 05/17/17 06:16 Metamyelocytes % 1 % (0-2) 05/17/17 06:16 Myelocytes % 4 % (0-1) H 05/17/17 06:16 Nucleated RBC % 0 05/18/17 04:20 Abs Neuts (Manual) 4.8 10^3/ul (1.5-7.7) 05/17/17 06:16 Abs Lymphs (Manual) 0.7 10^3/ul (1.0-4.8) L 05/17/17 06:16 Abs Monocytes (Manual) 0.5 10^3/ul (0-0.8) 05/17/17 06:16 Absolute Eos (Manual) 0.3 10^3/ul (0-0.6) 05/17/17 06:16 Abs Basophils (Manual) 0 10^3/ul (0-0.2) 05/17/17 06:16 Normal RBC Morphology Normal (Normal) 05/17/17 06:16 INR (Anticoag Therapy) 1.35 (0.77-1.02) H 05/12/17 05:47 APTT 35.6 seconds (26.0-36.3) 04/23/17 00:48 Patient Temperature Not Reportable 04/23/17 00:48 ABG pH 7.44 (7.35-7.45) 04/23/17 00:48 ABG pH (Temp Correct) Not Reportable 04/23/17 00:48 ABG pCO2 31 mmHg (35-45) L 04/23/17 00:48 ABG pCO2 (Temp Corrct Not Reportable 04/23/17 00:48 ABG pO2 128 mmHg (80-100) H 04/23/17 00:48 ABG pO2 (Temp Correct Not Reportable 04/23/17 00:48 ABG HCO3 23.0 mmol/L (19-31) 04/23/17 00:48 ABG O2 Saturation 99.2 % (95-98) H 04/23/17 00:48 ABG Base Excess -2.5 (-2.0-2.0) L 04/23/17 00:48 Respiration Rate 14 04/23/17 00:48 O2 Delivery Device ventilator 04/23/17 00:48 Ventilator Type 600 04/23/17 00:48 Vent Mode apv 04/23/17 00:48 FiO2 50 04/23/17 00:48 Inspiratory Time 1.0 04/23/17 00:48 PEEP 5 03 00:48 Pressure Support Not Reportable 04/23/17 00:48 Pressure Control Not Reportable 04/23/17 00:48 EPAP Not Reportable 04/23/17 00:48 IPAP Not Reportable 04/23/17 00:48 BiPAP Not Reportable 04/23/17 00:48 Sodium 139 mmol/L (133-145) 05/18/17 04:20 Potassium 3.5 mmol/L (3.5-5.0) 05/18/17 04:20 Chloride 106 mmol/L (101-111) 05/18/17 04:20 Carbon Dioxide 22 mmol/L (22-32) 05/18/17 04:20 Anion Gap 11 mmol/L (2-11) 05/18/17 04:20 BUN 11 mg/dL (6-24) 05/18/17 04:20 Creatinine 0.82 mg/dL (0.67-1.17) 05/18/17 04:20 Est GFR ( Amer) 118.1 (>60) 05/18/17 04:20 Est GFR (Non-Af Amer) 91.8 (>60) 05/18/17 04:20 BUN/Creatinine Ratio 13.4 (8-20) 05/18/17 04:20 Glucose 71 mg/dL (70-100) 05/18/17 04:20 Lactic Acid 1.1 mmol/L (0.5-2.0) 04/21/17 08:43 Calcium 7.5 mg/dL (8.6-10.3) L 05/18/17 04:20 Phosphorus 4.3 mg/dL (2.5-5.0) 05/06/17 05:05 Magnesium 1.8 mg/dL (1.9-2.7) L 05/18/17 04:20 Iron < 15 ug/dL (50-212) L 05/12/17 14:24 TIBC 151 mcg/dL (250-450) L 05/12/17 14:24 % Saturation 10 % (15-55) L 05/12/17 14:24 Unsat Iron Binding 136.56315 ug/dL 05/12/17 14:24 Transferrin 108 mg/dL (203-362) L 05/12/17 14:24 Ferritin 1062.7 ng/mL (24-336) H 05/12/17 14:24 Total Bilirubin 0.70 mg/dL (0.2-1.0) 05/03/17 05:05 AST 27 U/L (13-39) 05/03/17 05:05 ALT 22 U/L (7-52) 05/03/17 05:05 Alkaline Phosphatase 95 U/L (34-104) 05/03/17 05:05 Ammonia 19 mol/L (16-53) 05/12/17 05:47 Troponin I 0.03 ng/mL (<0.04) 04/21/17 04:40 C-Reactive Protein 113.15 mg/L (< 5.00) H 05/17/17 06:19 Total Protein 5.4 g/dL (6.4-8.9) L 05/03/17 05:05 Albumin 2.1 g/dL (3.2-5.2) L 05/11/17 05:30 Globulin 3.4 g/dL (2-4) 05/03/17 05:05 Albumin/Globulin Ratio 0.6 (1-3) L 05/03/17 05:05 Prealbumin 6 mg/dL (18-38) L 05/11/17 05:30 Lipase 28 U/L (11.0-82.0) 04/21/17 04:40 Fluid Source Synovial fluid 05/08/17 19:15 Fluid Volume 20 mL 05/08/17 19:15 Fluid Color Red 05/08/17 19:15 Fluid Appearance Bloody 05/08/17 19:15 Fluid WBC 8676 /mcL (0-779492) 05/08/17 19:15 Fluid RBC 22622 /mcL 05/08/17 19:15 Fluid Tot Cell Count 100 05/08/17 19:15 Fluid Neutrophils 93 % 05/08/17 19:15 Fluid Band Neutrophils 3 % 05/08/17 19:15 Fluid Lymphocytes 3 % 05/08/17 19:15 Fluid Reactive Lymphs Cancelled 05/14/17 14:30 Fluid Monocytes 1 % 05/08/17 19:15 Fluid Eosinophils Cancelled 05/14/17 14:30 Fluid Basophils Cancelled 05/14/17 14:30 Fluid Promyelocytes Cancelled 05/14/17 14:30 Fluid Myelocytes Cancelled 05/14/17 14:30 Fluid Metamyelocytes Cancelled 05/14/17 14:30 Fluid Blast Cells Cancelled 05/14/17 14:30 Fluid Nucleated RBCs Cancelled 05/14/17 14:30 Fluid Other Cells 1 04/23/17 10:30 Fluid Cell Count Rvw By 05/08/17 19:15 Fluid Crystals None seen (None Seen) 05/08/17 19:15 Fluid Total Protein 3.1 g/dL 04/23/17 10:30 Fluid Comment Cancelled 05/14/17 14:30 Blood Type O Positive 05/14/17 08:00 Antibody Screen Negative 05/14/17 08:00 Crossmatch See Detail 05/06/17 05:05 General: Well appearing, NAD. Asking if he is going home today, unable to give appropriate pain scale values. RUE: right shoulder nonerythematous, incisions CDI without erythema or drainage. PROM of shoulder improved from previous exams, 110 forward flexion, 90 abduction. Edema of hand has resolved. 2+ radial pulse. LLE: Left knee nonerythematous. Incision CDI. 0-30 degrees ROM, patient reports involuntarily resistance of ROM. Assessment: [] POD 25 open I&D left knee, e/o liner POD 22 arthroscopic I&D right shoulder Plan: - ABX per ID - CRP trending up, low grade temp today - Appreciate hosp, neuro, ID care.
[2017-05-18] MEDS: Atorvastatin* 20 MG TAB PO SCH (16:47)
--- NOTE | 2017-05-18 19:14 | PN ---
Subjective Date of Service: 05/18/17 Interval History: Pt denies any pain today. He denies SOB. His has felt that he has improved slightly each day until today. She notes that he has been more sleepy than previous. Objective Active Medications: Acetaminophen (Tylenol Tab*) 650 mg PO Q4H PRN PRN Reason: FEVER Last Admin: 05/13/17 16:40 Dose: 650 mg Allopurinol (Zyloprim Tab*) 100 mg PO QAM [facility] Last Admin: 05/18/17 08:45 Dose: 100 mg Amlodipine Besylate (Norvasc Tab*) 5 mg PO DAILY [facility] Last Admin: 05/18/17 08:50 Dose: 5 mg Atorvastatin Calcium (Lipitor*) 20 mg PO 1700 [facility] Last Admin: 05/18/17 16:47 Dose: 20 mg Ciprofloxacin HCl (Cipro 0.3% Opth*) 1 drop LEFT EYE Q2HR [facility] Last Admin: 05/18/17 18:06 Dose: 1 drop Docusate Sodium (Colace Cap*) 100 mg PO DAILY PRN PRN Reason: CONSTIPATION Last Admin: 05/18/17 16:48 Dose: 100 mg Heparin Sodium (Porcine) (Heparin Vial(*)) 5,000 units SUBCUT Q8HR [facility] Last Admin: 05/18/17 14:08 Dose: 5,000 units Heparin Sodium (Porcine) (Heparin Flush Picc/Ml/Cvc(*)) 1 - 3 ml FLUSH 0600, 1800 [facility] PRN Reason: Protocol Last Admin: 05/18/17 18:06 Dose: 1 ml Cefazolin Sodium 2 gm/ Sterile (Water) 20 mls @ 60 mls/hr IVPB Q8H [facility] Last Admin: 05/18/17 16:47 Dose: 60 mls/hr Magnesium Oxide (Magox 400 Tab*) 400 mg PO DAILY [facility] Multivitamins (Theragran W/Minerals Liq*) 15 ml PO DAILY [facility] Last Admin: 05/18/17 08:45 Dose: 15 ml Nebivolol (Bystolic Tab (Nf)) 10 mg PO QAM [facility] Last Admin: 05/18/17 08:47 Dose: 10 mg Ondansetron HCl (Zofran Inj*) 4 mg IV Q6H PRN PRN Reason: NAUSEA/VOMITING Last Admin: 05/16/17 09:31 Dose: 4 mg Polyethylene Glycol/Electrolytes (Miralax*) 17 gm PO DAILY [facility] Last Admin: 05/18/17 08:49 Dose: 17 gm Polyvinyl Alcohol (Polyvinyl Alcohol 1.4% Opth*) 1 drop BOTH EYES Q2H PRN PRN Reason: DRY EYE Last Admin: 05/13/17 16:40 Dose: 1 drop Potassium Chloride (Klor-Con Liquid*) 20 meq PO TID [facility] Last Admin: 05/18/17 14:08 Dose: 20 meq Rifampin (Rifampin Cap*) 600 mg PO DAILY [facility] Last Admin: 05/18/17 08:45 Dose: 600 mg Thiamine HCl (Vitamin B-1 Tab*) 100 mg PO DAILY [facility] Last Admin: 05/18/17 08:46 Dose: 100 mg Vital Signs - 8 hr 05/18/17 05/18/17 05/18/17 11:10 15:25 16:00 Temperature 100.2 F 100.5 F Pulse Rate 85 80 Respiratory 18 15 15 Rate Blood Pressure 160/103 142/67 (mmHg) O2 Sat by Pulse 100 95 95 Oximetry Oxygen Devices in Use Now: None Appearance: Elderly male sitting up in recliner chair, NAD Eyes: No Scleral Icterus Ears/Nose/Mouth/Throat: Mucous Membranes Moist Respiratory: Symmetrical Chest Expansion and Respiratory Effort, Clear to Auscultation - anteriorly Cardiovascular: NL Sounds; No Murmurs; No JVD, RRR, No Edema Abdominal: NL Sounds; No Tenderness; No Distention Extremities: No Clubbing, Cyanosis, - - L knee warm to touch but not erythematous and no significant effusion Skin: No Rash or Ulcers Neurological: - - at times alert, other times he falls asleep easily, pleasantly confused Result Diagrams: 05/19/17 07:10 05/19/17 03:15 Additional Lab and Data: Laboratory Results - last 24 hr 05/16/17 05/16/17 05/17/17 20:07 20:07 06:16 WBC 8.2 6.6 RBC 2.44 L 2.33 L Hgb 7.3 L 7.1 L Hct 22 L 21 L MCV 91 91 MCH 30 30 MCHC 33 33 RDW 16 H 16 H Plt Count 356 331 MPV 6.6 L 6.8 L Neut % (Auto) 70.6 Not Reportable Lymph % (Auto) 11.5 L Not Reportable [place] % (Auto) 9.3 H Not Reportable Eos % (Auto) 7.6 H Not Reportable Baso % (Auto) 1.0 Not Reportable Absolute Neuts (auto) 5.8 4.3 Absolute Lymphs (auto) 0.9 L 0.9 L Absolute Monos (auto) 0.8 0.7 Absolute Eos (auto) 0.6 0.6 Absolute Basos (auto) 0.1 0 Absolute Nucleated RBC 0 0 Immature Gran % 5 Neutrophils % 72 Lymphocytes % 11 L Monocytes % 8 H Eosinophils % 4 Basophils % 0 Metamyelocytes % 1 Myelocytes % 4 H Nucleated RBC % 0 0 Abs Neuts (Manual) 4.8 Abs Lymphs (Manual) 0.7 L Abs Monocytes (Manual) 0.5 Absolute Eos (Manual) 0.3 Abs Basophils (Manual) 0 Normal RBC Morphology Normal Sodium 139 Potassium 4.0 Chloride 106 Carbon Dioxide 24 Anion Gap 9 BUN 11 Creatinine 0.94 Est GFR ( Amer) 100.9 Est GFR (Non-Af Amer) 78.4 BUN/Creatinine Ratio 11.7 Glucose 82 Calcium 7.7 L Magnesium 1.8 L C-Reactive Protein 05/17/17 06:19 WBC RBC Hgb Hct MCV MCH MCHC RDW Plt Count MPV Neut % (Auto) Lymph % (Auto) [place] % (Auto) Eos % (Auto) Baso % (Auto) Absolute Neuts (auto) Absolute Lymphs (auto) Absolute Monos (auto) Absolute Eos (auto) Absolute Basos (auto) Absolute Nucleated RBC Immature Gran % Neutrophils % Lymphocytes % Monocytes % Eosinophils % Basophils % Metamyelocytes % Myelocytes % Nucleated RBC % Abs Neuts (Manual) Abs Lymphs (Manual) Abs Monocytes (Manual) Absolute Eos (Manual) Abs Basophils (Manual) Normal RBC Morphology Sodium 140 Potassium 3.4 L Chloride 106 Carbon Dioxide 24 Anion Gap 10 BUN 11 Creatinine 0.89 Est GFR ( Amer) 107.5 Est GFR (Non-Af Amer) 83.6 BUN/Creatinine Ratio 12.4 Glucose 69 L Calcium 7.8 L Magnesium 1.7 L C-Reactive Protein 113.15 H Microbiology and Other Data: Microbiology 04/23/17 10:30 Misc Source (See Comment) - Other Fungal Culture - Preliminary 05/14/17 14:30 Misc Fluid (See Comment) - Abscess Gram Stain - Final 05/14/17 14:30 Misc Fluid (See Comment) - Abscess Body Fluid Culture - Preliminary No Growth Day 2 05/14/17 14:30 Misc Fluid (See Comment) - Abscess Skin and Soft Tissue MRSA/ MSSA (PCR - Final Mrsa Negative S.aureus Positive 05/12/17 01:30 Blood Venous Aerobic Blood Culture - Final No Growth Day 5 05/12/17 01:30 Blood Venous Anaerobic Blood Culture - Final No Growth Day 5 05/12/17 01:30 Blood Venous Aerobic Blood Culture - Final No Growth Day 5 05/12/17 01:30 Blood Venous Anaerobic Blood Culture - Final No Growth Day 5 05/12/17 00:48 Blood Venous Aerobic Blood Culture - Final No Growth Day 5 05/12/17 00:48 Blood Venous Anaerobic Blood Culture - Final No Growth Day 5 05/09/17 17:00 Blood Venous Aerobic Blood Culture - Final No Growth Day 5 05/09/17 17:00 Blood Venous Anaerobic Blood Culture - Final No Growth Day 5 05/09/17 17:00 Blood Venous Aerobic Blood Culture - Final No Growth Day 5 05/09/17 17:00 Blood Venous Anaerobic Blood Culture - Final No Growth Day 5 05/08/17 19:15 Joint Fluid(Synovial) Gram Stain - Final 05/08/17 19:15 Joint Fluid(Synovial) Body Fluid Culture - Final No Growth Day 4 05/08/17 19:15 Joint Fluid(Synovial) Skin and Soft Tissue MRSA/MSSA (PCR - Final Mrsa Negative S.aureus Negative 05/08/17 19:15 Body Fluid Gram Stain - Final 05/08/17 19:15 Body Fluid Body Fluid Culture - Final No Growth Day 4 05/08/17 19:15 Body Fluid Skin and Soft Tissue MRSA/MSSA (PCR - Final Mrsa Negative S.aureus Positive 04/27/17 08:00 Blood Venous Aerobic Blood Culture - Final No Growth Day 5 04/27/17 08:00 Blood Venous Anaerobic Blood Culture - Final No Growth Day 5 04/27/17 06:10 Blood Venous Aerobic Blood Culture - Final Staphylococcus Epidermidis 04/27/17 06:10 Blood Venous Anaerobic Blood Culture - Final No Growth Day 5 04/27/17 06:10 Blood Venous Blood MRSA/MSSA (PCR) - Final Mrsa Negative S.aureus Negative 04/26/17 21:00 Wound - Wound Anaerobic Culture - Final 04/26/17 21:00 Wound - Wound Skin and Soft Tissue MRSA/MSSA (PCR - Final Mrsa Negative S.aureus Positive 04/26/17 21:00 Wound - Wound Gram Stain - Final 04/26/17 21:00 Wound - Wound Wound Culture - Final Staphylococcus Aureus 04/23/17 15:53 Wound - Knee Left Anaerobic Culture - Final 04/23/17 15:53 Wound - Knee Left Skin and Soft Tissue MRSA/MSSA (PCR - Final Mrsa Negative S.aureus Positive 04/23/17 15:53 Wound - Knee Left Gram Stain - Final 04/23/17 15:53 Wound - Knee Left Wound Culture - Final Staphylococcus Aureus 04/23/17 10:30 Joint Fluid(Synovial) - Knee Left Gram Stain - Final 04/23/17 10:30 Joint Fluid(Synovial) - Knee Left Body Fluid Culture - Final Staphylococcus Aureus 04/23/17 10:30 Joint Fluid(Synovial) - Knee Left Skin and Soft Tissue MRSA/ MSSA (PCR - Final Mrsa Negative S.aureus Positive 04/22/17 16:56 Wound - Abscess Anaerobic Culture - Final 04/22/17 16:56 Wound - Abscess Skin and Soft Tissue MRSA/MSSA (PCR - Final Mrsa Negative S.aureus Positive 04/22/17 16:56 Wound - Abscess Gram Stain - Final 04/22/17 16:56 Wound - Abscess Wound Culture - Final Staphylococcus Aureus 04/22/17 15:00 Wound - Other Anaerobic Culture - Final 04/22/17 15:00 Misc Source (See Comment) - Other Skin and Soft Tissue MRSA/ MSSA (PCR - Final Mrsa Negative S.aureus Positive 04/22/17 15:00 Misc Source (See Comment) - Other Gram Stain - Final 04/22/17 15:00 Misc Source (See Comment) - Other Wound Culture - Final Staphylococcus Aureus 04/21/17 05:40 Blood Venous Aerobic Blood Culture - Final Staphylococcus Aureus 04/21/17 05:40 Blood Venous Anaerobic Blood Culture - Final Staphylococcus Aureus 04/21/17 05:40 Blood Venous Blood MRSA/MSSA (PCR) - Final Mrsa Negative S.aureus Positive 04/21/17 04:40 Blood Venous Aerobic Blood Culture - Final Staphylococcus Aureus 04/21/17 04:40 Blood Venous Anaerobic Blood Culture - Final Staphylococcus Aureus 04/21/17 04:40 Blood Venous Blood MRSA/MSSA (PCR) - Final Mrsa Negative S.aureus Positive 04/22/17 06:20 Nasal Nasal Screen MRSA (PCR)(KEEGAN) - Final Mrsa Not Detected Assess/Plan/Problems-Billing Mr Bonilla is a 76 yo M with h/o HTN, multiple joint replacements, GI bleed (and partial colon resection due to bleed) who presented to the ER with c/o severe back pain and was ultimately found to a very large epidural abscess, R septic shoulder, L septic knee in the setting of MSSA bacteremia s/p drainage. s/p right psoas abscess drainage 05/14. Still not back to baseline mental status. - Patient Problems (1) MSSA bacteremia Current Visit: Yes Status: Acute Code(s): R78.81 - BACTEREMIA SNOMED Code( s): 488920245 Comment: BC negative since 05/09/17. Continue rifampin and ancef per Dr. Franklin. 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 The patient remains encephalopathic and it is unclear if he will have improvement in his mental status. (2) Epidural abscess Current Visit: Yes Status: Acute Code(s): G06.2 - EXTRADURAL AND SUBDURAL ABSCESS, UNSPECIFIED SNOMED Code(s): 09611132 Comment: The patient presented with a very large epidural abscess. He underwent multilevel skip laminectomies at C6-7, T2, T3, T5, T6, T8, T9, T10, T12, L3, L4, L5 on 04/22/17. Continue rifampin and ancef per Dr. Franklin. (3) Septic arthritis of knee, left Current Visit: Yes Status: Acute Code(s): M00.9 - PYOGENIC ARTHRITIS, UNSPECIFIED SNOMED Code(s): 336598070 Comment: The patient is s/p washout/debridement and liner exchange of the left knee total arthroplasty 04/23/17. Left knee aspiration on 05/08/17 has no growth so far. Continue ancef and rifampin per Dr. Franklin. (4) Septic arthritis of shoulder, right Current Visit: Yes Status: Acute Code(s): M00.9 - PYOGENIC ARTHRITIS, UNSPECIFIED SNOMED Code(s): 04120355 Comment: The patient is s/p washout/debridement of R shoulder 04/26/17. Continue ancef and rifampin. (5) Encephalopathy Current Visit: Yes Status: Acute Code(s): G93.40 - ENCEPHALOPATHY, UNSPECIFIED SNOMED Code(s): 91917592 Comment: Likely septic encephalopathy from being septic on admission from the numerous infectious sources. No significant improvement in his mental status. (6) HTN (hypertension) Current Visit: Yes Status: Acute Code(s): I10 - ESSENTIAL (PRIMARY) HYPERTENSION SNOMED Code(s): 98880225 Comment: BP under fair control on nebivolol 10mg daily and amlodipine 5mg daily. (7) DVT prophylaxis Current Visit: Yes Status: Acute Code(s): FCN9347 - SNOMED Code(s): 431693898 Comment: SQ heparin (8) Full code status Current Visit: Yes Status: Acute Code(s): Z78.9 - OTHER SPECIFIED HEALTH STATUS SNOMED Code(s): 930147754 Status and Disposition: medicine inpatient.
--- NOTE | 2017-05-18 20:04 | PN ---
Progress Note - Progress Note Date of Service: 05/18/17 SOAP: Subjective: []]No events ON. Tolerates po. On Abx IV. No drainage from wound. More alert today. Objective: [VSS Afebrile Wound s,c,d, No discharge on dressing lower lumbar. No redness, No active drainage. AAOx2, RADHA, Face symmetric, tongue midline. Nichole spontaneously, Follows command. 4-5/5 Motor strength bilateral hand capacity planning engineer, Mick feet DF,PF. Can bend both knees 3-4/5, Exam limited due to mental status, previous surgical interventions. Sensory grossly intact to light touch Assessment: []76 yom POD#25 multilevel laminectomies for holospinal epidural abscess Plan: []Monitor VS, Neurochecks. Monitor wound. Wound dressing changes daily. Continue with regular dressing changes daily and consider aquaseal if needed. Monitor labs. Keep sutures for 6 weeks. PT/OT when able to participate. Abx per ID Appreciate ID, IM, Orthopedic care. Armond Melendrez MD
[2017-05-18] MEDS ORDERED: LORazepam INJ* 2 MG/ML 1 ML VIAL IV PUSH ONE (21:00)
[2017-05-19] MEDS: ceFAZolin 2 GM/20 ML SYRINGE IVPB Q8H IVPB SCH ×6 (02:12→17:22)
[2017-05-19 03:39] LABS: EGFR Non-African American 85.8 (>60)
[2017-05-19 03:51] LABS: Hematocrit 19 % (42-52); Hemoglobin 6.3 g/dl (14.0-18.0); Mean Corpuscular HGB Conc 33 g/dl (31-36); Mean Corpuscular Hemoglobin 30 pg (27-31); Mean Corpuscular Volume 90 fL (80-94); Mean Platelet Volume 6.8 um3 (7.4-10.4); Platelet Count 291 10^3/ul (150-450); Red Cell Distribution Width 16 % (10.5-15); White Blood Count 6.6 10^3/ul (3.5-10.8)
[2017-05-19 03:52] LABS: ABS Basophils 0 10^3/ul (0-0.2); ABS Eosinophils 0.3 10^3/ul (0-0.6); ABS Monocytes 0.9 10^3/ul (0-0.8); ABS Neutrophils 4.4 10^3/ul (1.5-7.7); ABS Nucleated RBC 0 10^3/ul; Eosinophil % 4.9 % (0-6); Lymphocyte % 14.9 % (25-47); Nucleated Red Blood Cells % 0.1
[2017-05-19] MEDS: Heparin VIAL(*) 5000 UNITS/ML VIAL (FIVE THOUSAND) SUBCUT SCH ×3 (05:54→22:05)
[2017-05-19 07:35] LABS: Hematocrit 22 % (42-52); Hemoglobin 7.4 g/dl (14.0-18.0)
[2017-05-19] MEDS: Potassium Chloride LIQUID* 20 MEQ PACKET PO SCH ×3 (09:32→22:05)
[2017-05-19] MEDS: Allopurinol TAB* 100 MG PO SCH (09:33)
[2017-05-19] MEDS: amLODIPine TAB* 5 MG PO SCH (09:37)
[2017-05-19] MEDS: Magnesium Oxide TAB* 400 MG PO SCH (09:37)
[2017-05-19] MEDS: Thiamine TAB* 100 MG TAB PO SCH (09:37)
[2017-05-19] MEDS: Multivitamins ADULT w/MIN LIQ* 15 ML UDC PO SCH (09:38)
[2017-05-19] MEDS: RiFAMPin CAP* 300 MG CAP PO SCH (09:38)
[2017-05-19] MEDS: Polyethylene Glycol 3350* 17 GM PACKET PO SCH (09:38)
[2017-05-19] MEDS: CMCS: Nebivolol TAB (NF) 2.5 MG TAB PO SCH (09:38)
[2017-05-19] MEDS ORDERED: Sodium Phosphate ADULT ENEMA* 118 ml bottle PR PRN (09:49)
[2017-05-19] MEDS ORDERED: Bisacodyl SUPP* 10 MG SUPP PR PRN (09:49)
[2017-05-19] MEDS ORDERED: Magnesium Hydroxide LIQ* 30 ML UDC PO PRN (09:50)
[2017-05-19] MEDS ORDERED: Magnesium Sulfate 2 GM IV* 2 GM/50 ML BAG IVPB ONE (10:00)
--- NOTE | 2017-05-19 11:13 | PN ---
Subjective Date of Service: 05/19/17 Interval History: Pt is feeling ok. He denies any pain at this time. He states that he ate breakfast but then I notice the tray untouched in the room. He Objective Active Medications: Acetaminophen (Tylenol Tab*) 650 mg PO Q4H PRN PRN Reason: FEVER Last Admin: 05/13/17 16:40 Dose: 650 mg Allopurinol (Zyloprim Tab*) 100 mg PO QAM [facility] Last Admin: 05/19/17 09:33 Dose: 100 mg Amlodipine Besylate (Norvasc Tab*) 5 mg PO DAILY [facility] Last Admin: 05/19/17 09:37 Dose: 5 mg Atorvastatin Calcium (Lipitor*) 20 mg PO 1700 [facility] Last Admin: 05/18/17 16:47 Dose: 20 mg Bisacodyl (Dulcolax Supp*) 10 mg [place] DAILY PRN PRN Reason: CONSTIPATION Docusate Sodium (Colace Cap*) 100 mg PO DAILY PRN PRN Reason: CONSTIPATION Last Admin: 05/18/17 16:48 Dose: 100 mg Heparin Sodium (Porcine) (Heparin Vial(*)) 5,000 units SUBCUT Q8HR [facility] Last Admin: 05/19/17 05:54 Dose: Not Given Heparin Sodium (Porcine) (Heparin Flush Picc/Ml/Cvc(*)) 1 - 3 ml FLUSH 0600, 1800 [facility] PRN Reason: Protocol Last Admin: 05/19/17 03:00 Dose: 1 ml Cefazolin Sodium 2 gm/ Sterile (Water) 20 mls @ 60 mls/hr IVPB Q8H [facility] Last Admin: 05/19/17 09:43 Dose: 60 mls/hr Magnesium Hydroxide (Milk Of Magnesia Liq*) 30 ml PO Q4H PRN PRN Reason: CONSTIPATION Magnesium Oxide (Magox 400 Tab*) 400 mg PO DAILY [facility] Last Admin: 05/19/17 09:37 Dose: 400 mg Multivitamins (Theragran W/Minerals Liq*) 15 ml PO DAILY [facility] Last Admin: 05/19/17 09:38 Dose: 15 ml Nebivolol (Bystolic Tab (Nf)) 10 mg PO QAM [facility] Last Admin: 05/19/17 09:38 Dose: 10 mg Ondansetron HCl (Zofran Inj*) 4 mg IV Q6H PRN PRN Reason: NAUSEA/VOMITING Last Admin: 05/16/17 09:31 Dose: 4 mg Polyethylene Glycol/Electrolytes (Miralax*) 17 gm PO DAILY [facility] Last Admin: 05/19/17 09:38 Dose: 17 gm Polyvinyl Alcohol (Polyvinyl Alcohol 1.4% Opth*) 1 drop BOTH EYES Q2H PRN PRN Reason: DRY EYE Last Admin: 05/13/17 16:40 Dose: 1 drop Potassium Chloride (Klor-Con Liquid*) 20 meq PO TID [facility] Last Admin: 05/19/17 09:32 Dose: 20 meq Rifampin (Rifampin Cap*) 600 mg PO DAILY [facility] Last Admin: 05/19/17 09:38 Dose: 600 mg Sodium Biphosphate/Sodium Phosphate (Fleet Enema*) 1 bottle [place] DAILY PRN PRN Reason: CONSTIPATION Thiamine HCl (Vitamin B-1 Tab*) 100 mg PO DAILY [facility] Last Admin: 05/19/17 09:37 Dose: 100 mg Vital Signs - 8 hr 05/19/17 05/19/17 05/19/17 03:11 05:09 05:36 Temperature 97.8 F 98.6 F Pulse Rate 83 81 79 Respiratory 17 18 18 Rate Blood Pressure 148/103 118/84 137/59 (mmHg) O2 Sat by Pulse 97 100 91 Oximetry 05/19/17 08:00 Temperature Pulse Rate Respiratory 20 Rate Blood Pressure (mmHg) O2 Sat by Pulse Oximetry Oxygen Devices in Use Now: None Appearance: Elderly male sitting up in bed, NAD Eyes: No Scleral Icterus Ears/Nose/Mouth/Throat: Mucous Membranes Moist Respiratory: Symmetrical Chest Expansion and Respiratory Effort, Clear to Auscultation - anteriorly and at the lateral bases Cardiovascular: NL Sounds; No Murmurs; No JVD, RRR Abdominal: NL Sounds; No Tenderness; No Distention Extremities: No Clubbing, Cyanosis, - - L knee joint is warm to touch but not swollen or red, he appears to not be able to flex his L knee, he has limited ROM of the R shoulder Skin: No Rash or Ulcers, No Nodules or Sclerosis Neurological: - - more alert today but still confused Result Diagrams: 05/19/17 07:10 05/19/17 03:15 Additional Lab and Data: Laboratory Results - last 24 hr 05/16/17 05/16/17 05/17/17 20:07 20:07 06:16 WBC 8.2 6.6 RBC 2.44 L 2.33 L Hgb 7.3 L 7.1 L Hct 22 L 21 L MCV 91 91 MCH 30 30 MCHC 33 33 RDW 16 H 16 H Plt Count 356 331 MPV 6.6 L 6.8 L Neut % (Auto) 70.6 Not Reportable Lymph % (Auto) 11.5 L Not Reportable Gordon % (Auto) 9.3 H Not Reportable Eos % (Auto) 7.6 H Not Reportable Baso % (Auto) 1.0 Not Reportable Absolute Neuts (auto) 5.8 4.3 Absolute Lymphs (auto) 0.9 L 0.9 L Absolute Monos (auto) 0.8 0.7 Absolute Eos (auto) 0.6 0.6 Absolute Basos (auto) 0.1 0 Absolute Nucleated RBC 0 0 Immature Gran % 5 Neutrophils % 72 Lymphocytes % 11 L Monocytes % 8 H Eosinophils % 4 Basophils % 0 Metamyelocytes % 1 Myelocytes % 4 H Nucleated RBC % 0 0 Abs Neuts (Manual) 4.8 Abs Lymphs (Manual) 0.7 L Abs Monocytes (Manual) 0.5 Absolute Eos (Manual) 0.3 Abs Basophils (Manual) 0 Normal RBC Morphology Normal Sodium 139 Potassium 4.0 Chloride 106 Carbon Dioxide 24 Anion Gap 9 BUN 11 Creatinine 0.94 Est GFR ( Amer) 100.9 Est GFR (Non-Af Amer) 78.4 BUN/Creatinine Ratio 11.7 Glucose 82 Calcium 7.7 L Magnesium 1.8 L C-Reactive Protein 05/17/17 06:19 WBC RBC Hgb Hct MCV MCH MCHC RDW Plt Count MPV Neut % (Auto) Lymph % (Auto) Gordon % (Auto) Eos % (Auto) Baso % (Auto) Absolute Neuts (auto) Absolute Lymphs (auto) Absolute Monos (auto) Absolute Eos (auto) Absolute Basos (auto) Absolute Nucleated RBC Immature Gran % Neutrophils % Lymphocytes % Monocytes % Eosinophils % Basophils % Metamyelocytes % Myelocytes % Nucleated RBC % Abs Neuts (Manual) Abs Lymphs (Manual) Abs Monocytes (Manual) Absolute Eos (Manual) Abs Basophils (Manual) Normal RBC Morphology Sodium 140 Potassium 3.4 L Chloride 106 Carbon Dioxide 24 Anion Gap 10 BUN 11 Creatinine 0.89 Est GFR ( Amer) 107.5 Est GFR (Non-Af Amer) 83.6 BUN/Creatinine Ratio 12.4 Glucose 69 L Calcium 7.8 L Magnesium 1.7 L C-Reactive Protein 113.15 H Microbiology and Other Data: Microbiology 04/23/17 10:30 Misc Source (See Comment) - Other Fungal Culture - Preliminary 05/14/17 14:30 Misc Fluid (See Comment) - Abscess Gram Stain - Final 05/14/17 14:30 Misc Fluid (See Comment) - Abscess Body Fluid Culture - Preliminary No Growth Day 2 05/14/17 14:30 Misc Fluid (See Comment) - Abscess Skin and Soft Tissue MRSA/ MSSA (PCR - Final Mrsa Negative S.aureus Positive 05/12/17 01:30 Blood Venous Aerobic Blood Culture - Final No Growth Day 5 05/12/17 01:30 Blood Venous Anaerobic Blood Culture - Final No Growth Day 5 05/12/17 01:30 Blood Venous Aerobic Blood Culture - Final No Growth Day 5 05/12/17 01:30 Blood Venous Anaerobic Blood Culture - Final No Growth Day 5 05/12/17 00:48 Blood Venous Aerobic Blood Culture - Final No Growth Day 5 05/12/17 00:48 Blood Venous Anaerobic Blood Culture - Final No Growth Day 5 05/09/17 17:00 Blood Venous Aerobic Blood Culture - Final No Growth Day 5 05/09/17 17:00 Blood Venous Anaerobic Blood Culture - Final No Growth Day 5 05/09/17 17:00 Blood Venous Aerobic Blood Culture - Final No Growth Day 5 05/09/17 17:00 Blood Venous Anaerobic Blood Culture - Final No Growth Day 5 05/08/17 19:15 Joint Fluid(Synovial) Gram Stain - Final 05/08/17 19:15 Joint Fluid(Synovial) Body Fluid Culture - Final No Growth Day 4 05/08/17 19:15 Joint Fluid(Synovial) Skin and Soft Tissue MRSA/MSSA (PCR - Final Mrsa Negative S.aureus Negative 05/08/17 19:15 Body Fluid Gram Stain - Final 05/08/17 19:15 Body Fluid Body Fluid Culture - Final No Growth Day 4 05/08/17 19:15 Body Fluid Skin and Soft Tissue MRSA/MSSA (PCR - Final Mrsa Negative S.aureus Positive 04/27/17 08:00 Blood Venous Aerobic Blood Culture - Final No Growth Day 5 04/27/17 08:00 Blood Venous Anaerobic Blood Culture - Final No Growth Day 5 04/27/17 06:10 Blood Venous Aerobic Blood Culture - Final Staphylococcus Epidermidis 04/27/17 06:10 Blood Venous Anaerobic Blood Culture - Final No Growth Day 5 04/27/17 06:10 Blood Venous Blood MRSA/MSSA (PCR) - Final Mrsa Negative S.aureus Negative 04/26/17 21:00 Wound - Wound Anaerobic Culture - Final 04/26/17 21:00 Wound - Wound Skin and Soft Tissue MRSA/MSSA (PCR - Final Mrsa Negative S.aureus Positive 04/26/17 21:00 Wound - Wound Gram Stain - Final 04/26/17 21:00 Wound - Wound Wound Culture - Final Staphylococcus Aureus 04/23/17 15:53 Wound - Knee Left Anaerobic Culture - Final 04/23/17 15:53 Wound - Knee Left Skin and Soft Tissue MRSA/MSSA (PCR - Final Mrsa Negative S.aureus Positive 04/23/17 15:53 Wound - Knee Left Gram Stain - Final 04/23/17 15:53 Wound - Knee Left Wound Culture - Final Staphylococcus Aureus 04/23/17 10:30 Joint Fluid(Synovial) - Knee Left Gram Stain - Final 04/23/17 10:30 Joint Fluid(Synovial) - Knee Left Body Fluid Culture - Final Staphylococcus Aureus 04/23/17 10:30 Joint Fluid(Synovial) - Knee Left Skin and Soft Tissue MRSA/ MSSA (PCR - Final Mrsa Negative S.aureus Positive 04/22/17 16:56 Wound - Abscess Anaerobic Culture - Final 04/22/17 16:56 Wound - Abscess Skin and Soft Tissue MRSA/MSSA (PCR - Final Mrsa Negative S.aureus Positive 04/22/17 16:56 Wound - Abscess Gram Stain - Final 04/22/17 16:56 Wound - Abscess Wound Culture - Final Staphylococcus Aureus 04/22/17 15:00 Wound - Other Anaerobic Culture - Final 04/22/17 15:00 Misc Source (See Comment) - Other Skin and Soft Tissue MRSA/ MSSA (PCR - Final Mrsa Negative S.aureus Positive 04/22/17 15:00 Misc Source (See Comment) - Other Gram Stain - Final 04/22/17 15:00 Misc Source (See Comment) - Other Wound Culture - Final Staphylococcus Aureus 04/21/17 05:40 Blood Venous Aerobic Blood Culture - Final Staphylococcus Aureus 04/21/17 05:40 Blood Venous Anaerobic Blood Culture - Final Staphylococcus Aureus 04/21/17 05:40 Blood Venous Blood MRSA/MSSA (PCR) - Final Mrsa Negative S.aureus Positive 04/21/17 04:40 Blood Venous Aerobic Blood Culture - Final Staphylococcus Aureus 04/21/17 04:40 Blood Venous Anaerobic Blood Culture - Final Staphylococcus Aureus 04/21/17 04:40 Blood Venous Blood MRSA/MSSA (PCR) - Final Mrsa Negative S.aureus Positive 04/22/17 06:20 Nasal Nasal Screen MRSA (PCR)(KEEGAN) - Final Mrsa Not Detected Assess/Plan/Problems-Billing Mr Bonilla is a 76 yo M with h/o HTN, multiple joint replacements, GI bleed (and partial colon resection due to bleed) who presented to the ER with c/o severe back pain and was ultimately found to a very large epidural abscess, R septic shoulder, L septic knee in the setting of MSSA bacteremia s/p drainage. s/p right psoas abscess drainage 05/14. Still not back to baseline mental status. - Patient Problems (1) MSSA bacteremia Current Visit: Yes Status: Acute Code(s): R78.81 - BACTEREMIA SNOMED Code( s): 034467984 Comment: BC negative since 05/09/17. Continue rifampin and ancef per Dr. Franklin. CRP trended down slightly today. He will need usp IV Abx and then life long oral Abx. (2) Epidural abscess Current Visit: Yes Status: Acute Code(s): G06.2 - EXTRADURAL AND SUBDURAL ABSCESS, UNSPECIFIED SNOMED Code(s): 61535232 Comment: The patient presented with a very large epidural abscess. He underwent multilevel skip laminectomies at C6-7, T2, T3, T5, T6, T8, T9, T10, T12, L3, L4, L5 on 04/22/17. Continue rifampin and ancef per Dr. Franklin. (3) Septic arthritis of knee, left Current Visit: Yes Status: Acute Code(s): M00.9 - PYOGENIC ARTHRITIS, UNSPECIFIED SNOMED Code(s): 427566556 Comment: The patient is s/p washout/debridement and liner exchange of the left knee total arthroplasty 04/23/17. Left knee aspiration on 05/08/17 has no growth so far. Continue ancef and rifampin per Dr. Franklin. (4) Septic arthritis of shoulder, right Current Visit: Yes Status: Acute Code(s): M00.9 - PYOGENIC ARTHRITIS, UNSPECIFIED SNOMED Code(s): 77254461 Comment: The patient is s/p washout/debridement of R shoulder 04/26/17. Continue ancef and rifampin. (5) Encephalopathy Current Visit: Yes Status: Acute Code(s): G93.40 - ENCEPHALOPATHY, UNSPECIFIED SNOMED Code(s): 41632690 Comment: Likely septic encephalopathy from being septic on admission from the numerous infectious sources. No significant improvement in his mental status. (6) HTN (hypertension) Current Visit: Yes Status: Acute Code(s): I10 - ESSENTIAL (PRIMARY) HYPERTENSION SNOMED Code(s): 59165724 Comment: BP under fair control on nebivolol 10mg daily and amlodipine 5mg daily. (7) DVT prophylaxis Current Visit: Yes Status: Acute Code(s): HCB6271 - SNOMED Code(s): 688431720 Comment: SQ heparin (8) Full code status Current Visit: Yes Status: Acute Code(s): Z78.9 - OTHER SPECIFIED HEALTH STATUS SNOMED Code(s): 531278228 Status and Disposition: .
[2017-05-19] MEDS: Atorvastatin* 20 MG TAB PO SCH (17:18)
[2017-05-19] MEDS ORDERED: LORazepam INJ* 2 MG/ML 1 ML VIAL IV PUSH ONE (23:21)
[2017-05-20] MEDS: ceFAZolin 2 GM/20 ML SYRINGE IVPB Q8H IVPB SCH ×4 (00:29→09:06)
[2017-05-20] MEDS: Heparin VIAL(*) 5000 UNITS/ML VIAL (FIVE THOUSAND) SUBCUT SCH (06:04)
[2017-05-20 06:25] LABS: ABS Basophils 0 10^3/ul (0-0.2); ABS Eosinophils 0.4 10^3/ul (0-0.6); ABS Lymphocytes 0.9 10^3/ul (1.0-4.8); ABS Monocytes 0.9 10^3/ul (0-0.8); ABS Neutrophils 4.5 10^3/ul (1.5-7.7); ABS Nucleated RBC 0 10^3/ul; Eosinophil % 5.6 % (0-6); Hematocrit 21 % (42-52); Hemoglobin 7.2 g/dl (14.0-18.0); Lymphocyte % 13.2 % (25-47); Mean Corpuscular HGB Conc 34 g/dl (31-36); Mean Corpuscular Hemoglobin 30 pg (27-31); Mean Corpuscular Volume 88 fL (80-94); Mean Platelet Volume 6.8 um3 (7.4-10.4); Nucleated Red Blood Cells % 0; Platelet Count 276 10^3/ul (150-450); Red Blood Count 2.39 10^6/ul (4.0-5.4); Red Cell Distribution Width 17 % (10.5-15); White Blood Count 6.6 10^3/ul (3.5-10.8)
[2017-05-20 06:41] LABS: EGFR Non-African American 97.3 (>60)
[2017-05-20] MEDS: Polyethylene Glycol 3350* 17 GM PACKET PO SCH (09:04)
[2017-05-20] MEDS: Potassium Chloride LIQUID* 20 MEQ PACKET PO SCH ×3 (09:04→21:18)
[2017-05-20] MEDS: CMCS: Nebivolol TAB (NF) 2.5 MG TAB PO SCH (09:05)
[2017-05-20] MEDS: Thiamine TAB* 100 MG TAB PO SCH (09:05)
[2017-05-20] MEDS: RiFAMPin CAP* 300 MG CAP PO SCH (09:05)
[2017-05-20] MEDS: Multivitamins ADULT w/MIN LIQ* 15 ML UDC PO SCH (09:05)
[2017-05-20] MEDS: amLODIPine TAB* 5 MG PO SCH (09:06)
[2017-05-20] MEDS: Allopurinol TAB* 100 MG PO SCH (09:06)
[2017-05-20] MEDS: Magnesium Oxide TAB* 400 MG PO SCH (09:06)
[2017-05-20] MEDS ORDERED: Heparin VIAL(*) 5000 UNITS/ML VIAL (FIVE THOUSAND) SUBCUT SCH (12:38)
--- NOTE | 2017-05-20 14:48 | PN ---
Progress Note - Progress Note Date of Service: 05/20/17 SOAP: Subjective: []Patient seen at bedside. He has no complaints today, he is talkative but remains confused. Objective: [] Laboratory Last Values WBC 6.6 10^3/ul (3.5-10.8) 05/20/17 06:03 RBC 2.39 10^6/ul (4.0-5.4) L 05/20/17 06:03 Hgb 7.2 g/dl (14.0-18.0) L 05/20/17 06:03 Hct 21 % (42-52) L 05/20/17 06:03 MCV 88 fL (80-94) 05/20/17 06:03 MCH 30 pg (27-31) 05/20/17 06:03 MCHC 34 g/dl (31-36) 05/20/17 06:03 RDW 17 % (10.5-15) H 05/20/17 06:03 Plt Count 276 10^3/ul (150-450) 05/20/17 06:03 MPV 6.8 um3 (7.4-10.4) L 05/20/17 06:03 Neut % (Auto) 67.5 % (38-83) 05/20/17 06:03 Lymph % (Auto) 13.2 % (25-47) L 05/20/17 06:03 [place] % (Auto) 13.3 % (0-7) H 05/20/17 06:03 Eos % (Auto) 5.6 % (0-6) 05/20/17 06:03 Baso % (Auto) 0.4 % (0-2) 05/20/17 06:03 Absolute Neuts (auto) 4.5 10^3/ul (1.5-7.7) 05/20/17 06:03 Absolute Lymphs (auto) 0.9 10^3/ul (1.0-4.8) L 05/20/17 06:03 Absolute Monos (auto) 0.9 10^3/ul (0-0.8) H 05/20/17 06:03 Absolute Eos (auto) 0.4 10^3/ul (0-0.6) 05/20/17 06:03 Absolute Basos (auto) 0 10^3/ul (0-0.2) 05/20/17 06:03 Absolute Nucleated RBC 0 10^3/ul 05/20/17 06:03 Immature Gran % 5 % (0-9) 05/17/17 06:16 Neutrophils % 72 % (38-83) 05/17/17 06:16 Band Neutrophils % 1 % (0-8) 04/30/17 05:38 Lymphocytes % 11 % (25-47) L 05/17/17 06:16 Monocytes % 8 % (0-7) H 05/17/17 06:16 Eosinophils % 4 % (0-6) 05/17/17 06:16 Basophils % 0 % (0-2) 05/17/17 06:16 Metamyelocytes % 1 % (0-2) 05/17/17 06:16 Myelocytes % 4 % (0-1) H 05/17/17 06:16 Nucleated RBC % 0 05/20/17 06:03 Abs Neuts (Manual) 4.8 10^3/ul (1.5-7.7) 05/17/17 06:16 Abs Lymphs (Manual) 0.7 10^3/ul (1.0-4.8) L 05/17/17 06:16 Abs Monocytes (Manual) 0.5 10^3/ul (0-0.8) 05/17/17 06:16 Absolute Eos (Manual) 0.3 10^3/ul (0-0.6) 05/17/17 06:16 Abs Basophils (Manual) 0 10^3/ul (0-0.2) 05/17/17 06:16 Normal RBC Morphology Normal (Normal) 05/17/17 06:16 Polychromasia 1+ 05/19/17 03:15 Microcytosis 2+ 05/19/17 03:15 INR (Anticoag Therapy) 1.35 (0.77-1.02) H 05/12/17 05:47 APTT 35.6 seconds (26.0-36.3) 04/23/17 00:48 Patient Temperature Not Reportable 04/23/17 00:48 ABG pH 7.44 (7.35-7.45) 04/23/17 00:48 ABG pH (Temp Correct) Not Reportable 04/23/17 00:48 ABG pCO2 31 mmHg (35-45) L 04/23/17 00:48 ABG pCO2 (Temp Corrct Not Reportable 04/23/17 00:48 ABG pO2 128 mmHg (80-100) H 04/23/17 00:48 ABG pO2 (Temp Correct Not Reportable 04/23/17 00:48 ABG HCO3 23.0 mmol/L (19-31) 04/23/17 00:48 ABG O2 Saturation 99.2 % (95-98) H 04/23/17 00:48 ABG Base Excess -2.5 (-2.0-2.0) L 04/23/17 00:48 Respiration Rate 14 04/23/17 00:48 O2 Delivery Device ventilator 04/23/17 00:48 Ventilator Type 600 04/23/17 00:48 Vent Mode apv 03 00:48 FiO2 50 04/23/17 00:48 Inspiratory Time 1.0 03 00:48 PEEP 5 03 00:48 Pressure Support Not Reportable 04/23/17 00:48 Pressure Control Not Reportable 04/23/17 00:48 EPAP Not Reportable 04/23/17 00:48 IPAP Not Reportable 04/23/17 00:48 BiPAP Not Reportable 04/23/17 00:48 Sodium 144 mmol/L (139-145) 05/20/17 06:03 Potassium 3.5 mmol/L (3.5-5.0) 05/20/17 06:03 Chloride 109 mmol/L (101-111) 05/20/17 06:03 Carbon Dioxide 25 mmol/L (22-32) 05/20/17 06:03 Anion Gap 10 mmol/L (2-11) 05/20/17 06:03 BUN 11 mg/dL (6-24) 05/20/17 06:03 Creatinine 0.78 mg/dL (0.67-1.17) 05/20/17 06:03 Est GFR ( Amer) 125.1 (>60) 05/20/17 06:03 Est GFR (Non-Af Amer) 97.3 (>60) 05/20/17 06:03 BUN/Creatinine Ratio 14.1 (8-20) 05/20/17 06:03 Glucose 95 mg/dL (70-100) 05/20/17 06:03 Lactic Acid 1.1 mmol/L (0.5-2.0) 04/21/17 08:43 Calcium 7.6 mg/dL (8.6-10.3) L 05/20/17 06:03 Phosphorus 4.3 mg/dL (2.5-5.0) 05/06/17 05:05 Magnesium 1.9 mg/dL (1.9-2.7) 05/20/17 06:03 Iron < 15 ug/dL (50-212) L 05/12/17 14:24 TIBC 151 mcg/dL (250-450) L 05/12/17 14:24 % Saturation 10 % (15-55) L 05/12/17 14:24 Unsat Iron Binding 136.28999 ug/dL 05/12/17 14:24 Transferrin 108 mg/dL (203-362) L 05/12/17 14:24 Ferritin 1062.7 ng/mL (24-336) H 05/12/17 14:24 Total Bilirubin 0.70 mg/dL (0.2-1.0) 05/03/17 05:05 AST 27 U/L (13-39) 05/03/17 05:05 ALT 22 U/L (7-52) 05/03/17 05:05 Alkaline Phosphatase 95 U/L (34-104) 05/03/17 05:05 Ammonia 19 mol/L (16-53) 05/12/17 05:47 Troponin I 0.03 ng/mL (<0.04) 04/21/17 04:40 C-Reactive Protein 104.36 mg/L (< 5.00) H 05/19/17 03:15 Total Protein 5.4 g/dL (6.4-8.9) L 05/03/17 05:05 Albumin 2.1 g/dL (3.2-5.2) L 05/11/17 05:30 Globulin 3.4 g/dL (2-4) 05/03/17 05:05 Albumin/Globulin Ratio 0.6 (1-3) L 05/03/17 05:05 Prealbumin 6 mg/dL (18-38) L 05/11/17 05:30 Lipase 28 U/L (11.0-82.0) 04/21/17 04:40 Fluid Source Synovial fluid 05/08/17 19:15 Fluid Volume 20 mL 05/08/17 19:15 Fluid Color Red 05/08/17 19:15 Fluid Appearance Bloody 05/08/17 19:15 Fluid WBC 8676 /mcL (0-424919) 05/08/17 19:15 Fluid RBC 61426 /mcL 05/08/17 19:15 Fluid Tot Cell Count 100 05/08/17 19:15 Fluid Neutrophils 93 % 05/08/17 19:15 Fluid Band Neutrophils 3 % 05/08/17 19:15 Fluid Lymphocytes 3 % 05/08/17 19:15 Fluid Reactive Lymphs Cancelled 05/14/17 14:30 Fluid Monocytes 1 % 05/08/17 19:15 Fluid Eosinophils Cancelled 05/14/17 14:30 Fluid Basophils Cancelled 05/14/17 14:30 Fluid Promyelocytes Cancelled 05/14/17 14:30 Fluid Myelocytes Cancelled 05/14/17 14:30 Fluid Metamyelocytes Cancelled 05/14/17 14:30 Fluid Blast Cells Cancelled 05/14/17 14:30 Fluid Nucleated RBCs Cancelled 05/14/17 14:30 Fluid Other Cells 1 04/23/17 10:30 Fluid Cell Count Rvw By 05/08/17 19:15 Fluid Crystals None seen (None Seen) 05/08/17 19:15 Fluid Total Protein 3.1 g/dL 04/23/17 10:30 Fluid Comment Cancelled 05/14/17 14:30 Blood Type O Positive 05/19/17 03:15 Antibody Screen Negative 05/19/17 03:15 Crossmatch See Detail 05/19/17 03:15 General: Well appearing, NAD. Remains confused. RUE: right shoulder nonerythematous, incisions CDI without erythema or drainage. PROM of shoulder 110 forward flexion, 90 abduction. No edema of hand. 2+ radial pulse. LLE: Left knee nonerythematous. Incision CDI. Lying in bed 0-30 degrees passive and active ROM. 2+ DP pulse. Assessment: [] POD 27 open I&D left knee, e/o liner POD 24 arthroscopic I&D right shoulder Plan: - ABX per ID - Appreciate hosp, neuro, ID care. - Patient reports/ PT confirms patient tolerates much greater ROM knee when in chair - Dr Galan plans to bring patient to OR tomorrow for washout of right shoulder and left knee. Discussed with patient today though I do not feel he fully comprehends. Dr Galan to discuss with patient's . Hold heparin after tonights dose and NPO after midnight tonight.
--- NOTE | 2017-05-20 15:19 | PN ---
Subjective Date of Service: 05/20/17 Interval History: Pt is feeling well. He denies any pain. He is a very poor historian. I spoke with Dr. Galan who wants to take Mr Bonilla back to the OR tomorrow for a washout of his R shoulder and L knee. Objective Active Medications: Acetaminophen (Tylenol Tab*) 650 mg PO Q4H PRN PRN Reason: FEVER Last Admin: 05/13/17 16:40 Dose: 650 mg Allopurinol (Zyloprim Tab*) 100 mg PO QAM ON LICENSE OF [facility] Last Admin: 05/20/17 09:06 Dose: 100 mg Amlodipine Besylate (Norvasc Tab*) 5 mg PO DAILY ON LICENSE OF [facility] Last Admin: 05/20/17 09:06 Dose: 5 mg Atorvastatin Calcium (Lipitor*) 20 mg PO 1700 ON LICENSE OF [facility] Last Admin: 05/19/17 17:18 Dose: 20 mg Bisacodyl (Dulcolax Supp*) 10 mg SC DAILY PRN PRN Reason: CONSTIPATION Last Admin: 05/19/17 11:07 Dose: 10 mg Docusate Sodium (Colace Cap*) 100 mg PO DAILY PRN PRN Reason: CONSTIPATION Last Admin: 05/18/17 16:48 Dose: 100 mg Heparin Sodium (Porcine) (Heparin Flush Picc/Ml/Cvc(*)) 1 - 3 ml FLUSH 0600, 1800 ON LICENSE OF [facility] PRN Reason: Protocol Last Admin: 05/20/17 10:49 Dose: 1 ml Heparin Sodium (Porcine) (Heparin Vial(*)) 5,000 units SUBCUT Q8HR ON LICENSE OF [facility] Stop: 05/20/17 21:00 Last Admin: 05/20/17 14:24 Dose: 5,000 units Cefazolin Sodium 2 gm/ Sterile (Water) 20 mls @ 60 mls/hr IVPB Q8H ON LICENSE OF [facility] Stop: 05/20/17 16:59 Last Admin: 05/20/17 09:06 Dose: 60 mls/hr Cefazolin Sodium 2 gm/ Sodium (Chloride) 20 mls @ 60 mls/hr IVPB 0100,0900, 1700 ON LICENSE OF [facility] Magnesium Hydroxide (Milk Of Magnesia Liq*) 30 ml PO Q4H PRN PRN Reason: CONSTIPATION Last Admin: 05/19/17 11:05 Dose: 30 ml Magnesium Oxide (Magox 400 Tab*) 400 mg PO DAILY ON LICENSE OF [facility] Last Admin: 05/20/17 09:06 Dose: 400 mg Multivitamins (Theragran W/Minerals Liq*) 15 ml PO DAILY ON LICENSE OF [facility] Last Admin: 05/20/17 09:05 Dose: 15 ml Nebivolol (Bystolic Tab (Nf)) 10 mg PO QAM ON LICENSE OF [facility] Last Admin: 05/20/17 09:05 Dose: 10 mg Ondansetron HCl (Zofran Inj*) 4 mg IV Q6H PRN PRN Reason: NAUSEA/VOMITING Last Admin: 05/16/17 09:31 Dose: 4 mg Polyethylene Glycol/Electrolytes (Miralax*) 17 gm PO DAILY ON LICENSE OF [facility] Last Admin: 05/20/17 09:04 Dose: 17 gm Polyvinyl Alcohol (Polyvinyl Alcohol 1.4% Opth*) 1 drop BOTH EYES Q2H PRN PRN Reason: DRY EYE Last Admin: 05/13/17 16:40 Dose: 1 drop Potassium Chloride (Klor-Con Liquid*) 20 meq PO TID ON LICENSE OF [facility] Last Admin: 05/20/17 14:24 Dose: 20 meq Rifampin (Rifampin Cap*) 600 mg PO DAILY ON LICENSE OF [facility] Last Admin: 05/20/17 09:05 Dose: 600 mg Sodium Biphosphate/Sodium Phosphate (Fleet Enema*) 1 bottle SC DAILY PRN PRN Reason: CONSTIPATION Thiamine HCl (Vitamin B-1 Tab*) 100 mg PO DAILY ON LICENSE OF [facility] Last Admin: 05/20/17 09:05 Dose: 100 mg Vital Signs - 8 hr 05/20/17 05/20/17 05/20/17 08:38 08:39 08:47 Temperature 97.3 F Pulse Rate 69 Respiratory 16 16 Rate Blood Pressure 159/70 (mmHg) O2 Sat by Pulse 97 Oximetry 05/20/17 05/20/17 12:08 14:52 Temperature 97 F Pulse Rate 71 Respiratory 16 20 Rate Blood Pressure 137/77 (mmHg) O2 Sat by Pulse 100 Oximetry Oxygen Devices in Use Now: None Appearance: Elderly male sitting up in bed, NAD Eyes: No Scleral Icterus Ears/Nose/Mouth/Throat: Mucous Membranes Moist Respiratory: Symmetrical Chest Expansion and Respiratory Effort, Clear to Auscultation Cardiovascular: NL Sounds; No Murmurs; No JVD, RRR, No Edema Abdominal: NL Sounds; No Tenderness; No Distention Extremities: No Clubbing, Cyanosis, - - L knee mildly warm, minimal flexion of the Left knee, mild pain with flexion and abduction of the R shoulder Skin: No Rash or Ulcers, No Nodules or Sclerosis Neurological: - - pleasantly confused Result Diagrams: 05/20/17 06:03 05/20/17 06:03 Additional Lab and Data: Laboratory Results - last 24 hr 05/16/17 05/16/17 05/17/17 20:07 20:07 06:16 WBC 8.2 6.6 RBC 2.44 L 2.33 L Hgb 7.3 L 7.1 L Hct 22 L 21 L MCV 91 91 MCH 30 30 MCHC 33 33 RDW 16 H 16 H Plt Count 356 331 MPV 6.6 L 6.8 L Neut % (Auto) 70.6 Not Reportable Lymph % (Auto) 11.5 L Not Reportable Baker % (Auto) 9.3 H Not Reportable Eos % (Auto) 7.6 H Not Reportable Baso % (Auto) 1.0 Not Reportable Absolute Neuts (auto) 5.8 4.3 Absolute Lymphs (auto) 0.9 L 0.9 L Absolute Monos (auto) 0.8 0.7 Absolute Eos (auto) 0.6 0.6 Absolute Basos (auto) 0.1 0 Absolute Nucleated RBC 0 0 Immature Gran % 5 Neutrophils % 72 Lymphocytes % 11 L Monocytes % 8 H Eosinophils % 4 Basophils % 0 Metamyelocytes % 1 Myelocytes % 4 H Nucleated RBC % 0 0 Abs Neuts (Manual) 4.8 Abs Lymphs (Manual) 0.7 L Abs Monocytes (Manual) 0.5 Absolute Eos (Manual) 0.3 Abs Basophils (Manual) 0 Normal RBC Morphology Normal Sodium 139 Potassium 4.0 Chloride 106 Carbon Dioxide 24 Anion Gap 9 BUN 11 Creatinine 0.94 Est GFR ( Amer) 100.9 Est GFR (Non-Af Amer) 78.4 BUN/Creatinine Ratio 11.7 Glucose 82 Calcium 7.7 L Magnesium 1.8 L C-Reactive Protein 05/17/17 06:19 WBC RBC Hgb Hct MCV MCH MCHC RDW Plt Count MPV Neut % (Auto) Lymph % (Auto) Baker % (Auto) Eos % (Auto) Baso % (Auto) Absolute Neuts (auto) Absolute Lymphs (auto) Absolute Monos (auto) Absolute Eos (auto) Absolute Basos (auto) Absolute Nucleated RBC Immature Gran % Neutrophils % Lymphocytes % Monocytes % Eosinophils % Basophils % Metamyelocytes % Myelocytes % Nucleated RBC % Abs Neuts (Manual) Abs Lymphs (Manual) Abs Monocytes (Manual) Absolute Eos (Manual) Abs Basophils (Manual) Normal RBC Morphology Sodium 140 Potassium 3.4 L Chloride 106 Carbon Dioxide 24 Anion Gap 10 BUN 11 Creatinine 0.89 Est GFR ( Amer) 107.5 Est GFR (Non-Af Amer) 83.6 BUN/Creatinine Ratio 12.4 Glucose 69 L Calcium 7.8 L Magnesium 1.7 L C-Reactive Protein 113.15 H Microbiology and Other Data: Microbiology 04/23/17 10:30 Misc Source (See Comment) - Other Fungal Culture - Preliminary 05/14/17 14:30 Misc Fluid (See Comment) - Abscess Gram Stain - Final 05/14/17 14:30 Misc Fluid (See Comment) - Abscess Body Fluid Culture - Preliminary No Growth Day 2 05/14/17 14:30 Misc Fluid (See Comment) - Abscess Skin and Soft Tissue MRSA/ MSSA (PCR - Final Mrsa Negative S.aureus Positive 05/12/17 01:30 Blood Venous Aerobic Blood Culture - Final No Growth Day 5 05/12/17 01:30 Blood Venous Anaerobic Blood Culture - Final No Growth Day 5 05/12/17 01:30 Blood Venous Aerobic Blood Culture - Final No Growth Day 5 05/12/17 01:30 Blood Venous Anaerobic Blood Culture - Final No Growth Day 5 05/12/17 00:48 Blood Venous Aerobic Blood Culture - Final No Growth Day 5 05/12/17 00:48 Blood Venous Anaerobic Blood Culture - Final No Growth Day 5 05/09/17 17:00 Blood Venous Aerobic Blood Culture - Final No Growth Day 5 05/09/17 17:00 Blood Venous Anaerobic Blood Culture - Final No Growth Day 5 05/09/17 17:00 Blood Venous Aerobic Blood Culture - Final No Growth Day 5 05/09/17 17:00 Blood Venous Anaerobic Blood Culture - Final No Growth Day 5 05/08/17 19:15 Joint Fluid(Synovial) Gram Stain - Final 05/08/17 19:15 Joint Fluid(Synovial) Body Fluid Culture - Final No Growth Day 4 05/08/17 19:15 Joint Fluid(Synovial) Skin and Soft Tissue MRSA/MSSA (PCR - Final Mrsa Negative S.aureus Negative 05/08/17 19:15 Body Fluid Gram Stain - Final 05/08/17 19:15 Body Fluid Body Fluid Culture - Final No Growth Day 4 05/08/17 19:15 Body Fluid Skin and Soft Tissue MRSA/MSSA (PCR - Final Mrsa Negative S.aureus Positive 04/27/17 08:00 Blood Venous Aerobic Blood Culture - Final No Growth Day 5 04/27/17 08:00 Blood Venous Anaerobic Blood Culture - Final No Growth Day 5 04/27/17 06:10 Blood Venous Aerobic Blood Culture - Final Staphylococcus Epidermidis 04/27/17 06:10 Blood Venous Anaerobic Blood Culture - Final No Growth Day 5 04/27/17 06:10 Blood Venous Blood MRSA/MSSA (PCR) - Final Mrsa Negative S.aureus Negative 04/26/17 21:00 Wound - Wound Anaerobic Culture - Final 04/26/17 21:00 Wound - Wound Skin and Soft Tissue MRSA/MSSA (PCR - Final Mrsa Negative S.aureus Positive 04/26/17 21:00 Wound - Wound Gram Stain - Final 04/26/17 21:00 Wound - Wound Wound Culture - Final Staphylococcus Aureus 04/23/17 15:53 Wound - Knee Left Anaerobic Culture - Final 04/23/17 15:53 Wound - Knee Left Skin and Soft Tissue MRSA/MSSA (PCR - Final Mrsa Negative S.aureus Positive 04/23/17 15:53 Wound - Knee Left Gram Stain - Final 04/23/17 15:53 Wound - Knee Left Wound Culture - Final Staphylococcus Aureus 04/23/17 10:30 Joint Fluid(Synovial) - Knee Left Gram Stain - Final 04/23/17 10:30 Joint Fluid(Synovial) - Knee Left Body Fluid Culture - Final Staphylococcus Aureus 04/23/17 10:30 Joint Fluid(Synovial) - Knee Left Skin and Soft Tissue MRSA/ MSSA (PCR - Final Mrsa Negative S.aureus Positive 04/22/17 16:56 Wound - Abscess Anaerobic Culture - Final 04/22/17 16:56 Wound - Abscess Skin and Soft Tissue MRSA/MSSA (PCR - Final Mrsa Negative S.aureus Positive 04/22/17 16:56 Wound - Abscess Gram Stain - Final 04/22/17 16:56 Wound - Abscess Wound Culture - Final Staphylococcus Aureus 04/22/17 15:00 Wound - Other Anaerobic Culture - Final 04/22/17 15:00 Misc Source (See Comment) - Other Skin and Soft Tissue MRSA/ MSSA (PCR - Final Mrsa Negative S.aureus Positive 04/22/17 15:00 Misc Source (See Comment) - Other Gram Stain - Final 04/22/17 15:00 Misc Source (See Comment) - Other Wound Culture - Final Staphylococcus Aureus 04/21/17 05:40 Blood Venous Aerobic Blood Culture - Final Staphylococcus Aureus 04/21/17 05:40 Blood Venous Anaerobic Blood Culture - Final Staphylococcus Aureus 04/21/17 05:40 Blood Venous Blood MRSA/MSSA (PCR) - Final Mrsa Negative S.aureus Positive 04/21/17 04:40 Blood Venous Aerobic Blood Culture - Final Staphylococcus Aureus 04/21/17 04:40 Blood Venous Anaerobic Blood Culture - Final Staphylococcus Aureus 04/21/17 04:40 Blood Venous Blood MRSA/MSSA (PCR) - Final Mrsa Negative S.aureus Positive 04/22/17 06:20 Nasal Nasal Screen MRSA (PCR)(KEEGAN) - Final Mrsa Not Detected Assess/Plan/Problems-Billing Mr Bonilla is a 76 yo M with h/o HTN, multiple joint replacements, GI bleed (and partial colon resection due to bleed) who presented to the ER with c/o severe back pain and was ultimately found to a very large epidural abscess, R septic shoulder, L septic knee in the setting of MSSA bacteremia s/p drainage. s/p right psoas abscess drainage 05/14. Still not back to baseline mental status. - Patient Problems (1) MSSA bacteremia Current Visit: Yes Status: Acute Code(s): R78.81 - BACTEREMIA SNOMED Code( s): 478494183 Comment: BC negative since 05/09/17. Continue rifampin and ancef per Dr. Franklin. He will need snf IV Abx and then life long oral Abx. The patient remains encephalopathic and it is unclear if he will have improvement in his mental status. (2) Epidural abscess Current Visit: Yes Status: Acute Code(s): G06.2 - EXTRADURAL AND SUBDURAL ABSCESS, UNSPECIFIED SNOMED Code(s): 49993093 Comment: The patient presented with a very large epidural abscess. He underwent multilevel skip laminectomies at C6-7, T2, T3, T5, T6, T8, T9, T10, T12, L3, L4, L5 on 04/22/17. Continue rifampin and ancef per Dr. Franklin. (3) Septic arthritis of knee, left Current Visit: Yes Status: Acute Code(s): M00.9 - PYOGENIC ARTHRITIS, UNSPECIFIED SNOMED Code(s): 737120979 Comment: The patient is s/p washout/debridement and liner exchange of the left knee total arthroplasty 04/23/17. Left knee aspiration on 05/08/17 has no growth so far. Plan for washout 05/21/17. Continue ancef and rifampin per Dr. Franklin. (4) Septic arthritis of shoulder, right Current Visit: Yes Status: Acute Code(s): M00.9 - PYOGENIC ARTHRITIS, UNSPECIFIED SNOMED Code(s): 82671930 Comment: The patient is s/p washout/debridement of R shoulder 04/26/17. Plan for washout 05/21/17. Continue ancef and rifampin. (5) Encephalopathy Current Visit: Yes Status: Acute Code(s): G93.40 - ENCEPHALOPATHY, UNSPECIFIED SNOMED Code(s): 22520966 Comment: Mental status has not improved at all. I am concerned he will not improve anytime soon. (6) HTN (hypertension) Current Visit: Yes Status: Acute Code(s): I10 - ESSENTIAL (PRIMARY) HYPERTENSION SNOMED Code(s): 74202105 Comment: BP under fair control on nebivolol 10mg daily and amlodipine 5mg daily. (7) DVT prophylaxis Current Visit: Yes Status: Acute Code(s): KWB1616 - SNOMED Code(s): 365366807 Comment: SQ heparin (8) Full code status Current Visit: Yes Status: Acute Code(s): Z78.9 - OTHER SPECIFIED HEALTH STATUS SNOMED Code(s): 701237062 Status and Disposition: medicine inpatient.
[2017-05-20] MEDS: NS 0.9% IVPB SCH (16:07)
[2017-05-20] MEDS: CEFAZOLIN IVPB SCH (16:07)
[2017-05-20] MEDS: Atorvastatin* 20 MG TAB PO SCH (16:07)
[2017-05-20] MEDS: Artificial Tears* 15 ML BTL BOTH EYES PRN (16:53)
[2017-05-21] MEDS: CEFAZOLIN IVPB SCH ×4 (01:54→23:53)
[2017-05-21] MEDS: NS 0.9% IVPB SCH ×4 (01:54→23:53)
[2017-05-21 06:17] LABS: Hematocrit 21 % (42-52); Mean Corpuscular HGB Conc 33 g/dl (31-36); Mean Corpuscular Hemoglobin 30 pg (27-31); Mean Corpuscular Volume 88 fL (80-94); Mean Platelet Volume 6.8 um3 (7.4-10.4); Platelet Count 255 10^3/ul (150-450); Red Blood Count 2.37 10^6/ul (4.0-5.4); Red Cell Distribution Width 17 % (10.5-15)
[2017-05-21 06:21] LABS: INR 1.59 (0.77-1.02)
[2017-05-21 06:35] LABS: EGFR Non-African American 110.2 (>60)
[2017-05-21] MEDS: CMCS: Nebivolol TAB (NF) 2.5 MG TAB PO SCH (09:19)
[2017-05-21] MEDS: Magnesium Oxide TAB* 400 MG PO SCH (09:19)
[2017-05-21] MEDS: amLODIPine TAB* 5 MG PO SCH (09:19)
[2017-05-21] MEDS: Multivitamins ADULT w/MIN LIQ* 15 ML UDC PO SCH (09:20)
[2017-05-21] MEDS: Allopurinol TAB* 100 MG PO SCH (09:20)
[2017-05-21] MEDS: RiFAMPin CAP* 300 MG CAP PO SCH (09:20)
[2017-05-21] MEDS: Potassium Chloride LIQUID* 20 MEQ PACKET PO SCH ×3 (09:20→22:36)
[2017-05-21] MEDS: Thiamine TAB* 100 MG TAB PO SCH (09:20)
[2017-05-21] MEDS: Polyethylene Glycol 3350* 17 GM PACKET PO SCH ×2 (09:20→17:20)
[2017-05-21] MEDS ORDERED: Buffered Lidocaine 0.9% SYRIN* 5 ML/SYR SYRINGE INTRADERM ONE (11:02)
[2017-05-21] MEDS ORDERED: Famotidine IV* 10 MG/ML 2 ML (20 mg) IV ONE (11:02)
--- NOTE | 2017-05-21 11:51 | PN ---
Subjective Date of Service: 05/21/17 Interval History: Pt is feeling ok. He denies any pain. He denies any SOB. Objective Active Medications: Acetaminophen (Tylenol Tab*) 650 mg PO Q4H PRN PRN Reason: FEVER Last Admin: 05/13/17 16:40 Dose: 650 mg Allopurinol (Zyloprim Tab*) 100 mg PO QAM [facility] Last Admin: 05/21/17 09:20 Dose: 100 mg Amlodipine Besylate (Norvasc Tab*) 5 mg PO DAILY [facility] Last Admin: 05/21/17 09:19 Dose: 5 mg Atorvastatin Calcium (Lipitor*) 20 mg PO 1700 [facility] Last Admin: 05/20/17 16:07 Dose: 20 mg Bisacodyl (Dulcolax Supp*) 10 mg FL DAILY PRN PRN Reason: CONSTIPATION Last Admin: 05/19/17 11:07 Dose: 10 mg Docusate Sodium (Colace Cap*) 100 mg PO DAILY PRN PRN Reason: CONSTIPATION Last Admin: 05/18/17 16:48 Dose: 100 mg Heparin Sodium (Porcine) (Heparin Flush Picc/Ml/Cvc(*)) 1 - 3 ml FLUSH 0600, 1800 [facility] PRN Reason: Protocol Last Admin: 05/21/17 05:58 Dose: 1 ml Cefazolin Sodium 2 gm/ Sodium (Chloride) 20 mls @ 60 mls/hr IVPB 0100,0900, 1700 [facility] Last Admin: 05/21/17 09:44 Dose: 60 mls/hr Lactated Ringer's (Lactated Ringers 1000 Ml Bag*) 1,000 mls @ 125 mls/hr IV PER RATE [facility] Magnesium Hydroxide (Milk Of Magnesia Liq*) 30 ml PO Q4H PRN PRN Reason: CONSTIPATION Last Admin: 05/19/17 11:05 Dose: 30 ml Magnesium Oxide (Magox 400 Tab*) 400 mg PO DAILY [facility] Last Admin: 05/21/17 09:19 Dose: 400 mg Multivitamins (Theragran W/Minerals Liq*) 15 ml PO DAILY [facility] Last Admin: 05/21/17 09:20 Dose: 15 ml Nebivolol (Bystolic Tab (Nf)) 10 mg PO QAM [facility] Last Admin: 05/21/17 09:19 Dose: 10 mg Ondansetron HCl (Zofran Inj*) 4 mg IV Q6H PRN PRN Reason: NAUSEA/VOMITING Last Admin: 05/16/17 09:31 Dose: 4 mg Polyethylene Glycol/Electrolytes (Miralax*) 17 gm PO DAILY [facility] Last Admin: 05/21/17 09:20 Dose: Not Given Polyvinyl Alcohol (Polyvinyl Alcohol 1.4% Opth*) 1 drop BOTH EYES Q2H PRN PRN Reason: DRY EYE Last Admin: 05/20/17 16:53 Dose: 1 drop Potassium Chloride (Klor-Con Liquid*) 20 meq PO TID [facility] Last Admin: 05/21/17 09:20 Dose: 20 meq Rifampin (Rifampin Cap*) 600 mg PO DAILY [facility] Last Admin: 05/21/17 09:20 Dose: 600 mg Sodium Biphosphate/Sodium Phosphate (Fleet Enema*) 1 bottle FL DAILY PRN PRN Reason: CONSTIPATION Thiamine HCl (Vitamin B-1 Tab*) 100 mg PO DAILY [facility] Last Admin: 05/21/17 09:20 Dose: 100 mg Vital Signs - 8 hr 05/21/17 05/21/17 05/21/17 07:54 08:00 08:16 Temperature 98.8 F Pulse Rate 78 Respiratory 16 18 Rate Blood Pressure 153/86 (mmHg) O2 Sat by Pulse 98 98 Oximetry 05/21/17 05/21/17 08:54 11:35 Temperature 98.0 F Pulse Rate 68 Respiratory 16 Rate Blood Pressure 158/72 153/79 (mmHg) O2 Sat by Pulse 100 Oximetry Oxygen Devices in Use Now: None Appearance: Elderly male lying in bed sleeping, awakens to voice, NAD Eyes: No Scleral Icterus Ears/Nose/Mouth/Throat: Mucous Membranes Moist Respiratory: Symmetrical Chest Expansion and Respiratory Effort, Clear to Auscultation Cardiovascular: NL Sounds; No Murmurs; No JVD, RRR, No Edema Abdominal: NL Sounds; No Tenderness; No Distention Extremities: No Clubbing, Cyanosis Skin: No Nodules or Sclerosis, - - back incision not inspected Neurological: - - pleasantly confused Result Diagrams: 05/21/17 06:06 05/21/17 06:06 Additional Lab and Data: Laboratory Results - last 24 hr 05/16/17 05/16/17 05/17/17 20:07 20:07 06:16 WBC 8.2 6.6 RBC 2.44 L 2.33 L Hgb 7.3 L 7.1 L Hct 22 L 21 L MCV 91 91 MCH 30 30 MCHC 33 33 RDW 16 H 16 H Plt Count 356 331 MPV 6.6 L 6.8 L Neut % (Auto) 70.6 Not Reportable Lymph % (Auto) 11.5 L Not Reportable [place] % (Auto) 9.3 H Not Reportable Eos % (Auto) 7.6 H Not Reportable Baso % (Auto) 1.0 Not Reportable Absolute Neuts (auto) 5.8 4.3 Absolute Lymphs (auto) 0.9 L 0.9 L Absolute Monos (auto) 0.8 0.7 Absolute Eos (auto) 0.6 0.6 Absolute Basos (auto) 0.1 0 Absolute Nucleated RBC 0 0 Immature Gran % 5 Neutrophils % 72 Lymphocytes % 11 L Monocytes % 8 H Eosinophils % 4 Basophils % 0 Metamyelocytes % 1 Myelocytes % 4 H Nucleated RBC % 0 0 Abs Neuts (Manual) 4.8 Abs Lymphs (Manual) 0.7 L Abs Monocytes (Manual) 0.5 Absolute Eos (Manual) 0.3 Abs Basophils (Manual) 0 Normal RBC Morphology Normal Sodium 139 Potassium 4.0 Chloride 106 Carbon Dioxide 24 Anion Gap 9 BUN 11 Creatinine 0.94 Est GFR ( Amer) 100.9 Est GFR (Non-Af Amer) 78.4 BUN/Creatinine Ratio 11.7 Glucose 82 Calcium 7.7 L Magnesium 1.8 L C-Reactive Protein 05/17/17 06:19 WBC RBC Hgb Hct MCV MCH MCHC RDW Plt Count MPV Neut % (Auto) Lymph % (Auto) [place] % (Auto) Eos % (Auto) Baso % (Auto) Absolute Neuts (auto) Absolute Lymphs (auto) Absolute Monos (auto) Absolute Eos (auto) Absolute Basos (auto) Absolute Nucleated RBC Immature Gran % Neutrophils % Lymphocytes % Monocytes % Eosinophils % Basophils % Metamyelocytes % Myelocytes % Nucleated RBC % Abs Neuts (Manual) Abs Lymphs (Manual) Abs Monocytes (Manual) Absolute Eos (Manual) Abs Basophils (Manual) Normal RBC Morphology Sodium 140 Potassium 3.4 L Chloride 106 Carbon Dioxide 24 Anion Gap 10 BUN 11 Creatinine 0.89 Est GFR ( Amer) 107.5 Est GFR (Non-Af Amer) 83.6 BUN/Creatinine Ratio 12.4 Glucose 69 L Calcium 7.8 L Magnesium 1.7 L C-Reactive Protein 113.15 H Microbiology and Other Data: Microbiology 04/23/17 10:30 Misc Source (See Comment) - Other Fungal Culture - Preliminary 05/14/17 14:30 Misc Fluid (See Comment) - Abscess Gram Stain - Final 05/14/17 14:30 Misc Fluid (See Comment) - Abscess Body Fluid Culture - Preliminary No Growth Day 2 05/14/17 14:30 Misc Fluid (See Comment) - Abscess Skin and Soft Tissue MRSA/ MSSA (PCR - Final Mrsa Negative S.aureus Positive 05/12/17 01:30 Blood Venous Aerobic Blood Culture - Final No Growth Day 5 05/12/17 01:30 Blood Venous Anaerobic Blood Culture - Final No Growth Day 5 05/12/17 01:30 Blood Venous Aerobic Blood Culture - Final No Growth Day 5 05/12/17 01:30 Blood Venous Anaerobic Blood Culture - Final No Growth Day 5 05/12/17 00:48 Blood Venous Aerobic Blood Culture - Final No Growth Day 5 05/12/17 00:48 Blood Venous Anaerobic Blood Culture - Final No Growth Day 5 05/09/17 17:00 Blood Venous Aerobic Blood Culture - Final No Growth Day 5 05/09/17 17:00 Blood Venous Anaerobic Blood Culture - Final No Growth Day 5 05/09/17 17:00 Blood Venous Aerobic Blood Culture - Final No Growth Day 5 05/09/17 17:00 Blood Venous Anaerobic Blood Culture - Final No Growth Day 5 05/08/17 19:15 Joint Fluid(Synovial) Gram Stain - Final 05/08/17 19:15 Joint Fluid(Synovial) Body Fluid Culture - Final No Growth Day 4 05/08/17 19:15 Joint Fluid(Synovial) Skin and Soft Tissue MRSA/MSSA (PCR - Final Mrsa Negative S.aureus Negative 05/08/17 19:15 Body Fluid Gram Stain - Final 05/08/17 19:15 Body Fluid Body Fluid Culture - Final No Growth Day 4 05/08/17 19:15 Body Fluid Skin and Soft Tissue MRSA/MSSA (PCR - Final Mrsa Negative S.aureus Positive 04/27/17 08:00 Blood Venous Aerobic Blood Culture - Final No Growth Day 5 04/27/17 08:00 Blood Venous Anaerobic Blood Culture - Final No Growth Day 5 04/27/17 06:10 Blood Venous Aerobic Blood Culture - Final Staphylococcus Epidermidis 04/27/17 06:10 Blood Venous Anaerobic Blood Culture - Final No Growth Day 5 04/27/17 06:10 Blood Venous Blood MRSA/MSSA (PCR) - Final Mrsa Negative S.aureus Negative 04/26/17 21:00 Wound - Wound Anaerobic Culture - Final 04/26/17 21:00 Wound - Wound Skin and Soft Tissue MRSA/MSSA (PCR - Final Mrsa Negative S.aureus Positive 04/26/17 21:00 Wound - Wound Gram Stain - Final 04/26/17 21:00 Wound - Wound Wound Culture - Final Staphylococcus Aureus 04/23/17 15:53 Wound - Knee Left Anaerobic Culture - Final 04/23/17 15:53 Wound - Knee Left Skin and Soft Tissue MRSA/MSSA (PCR - Final Mrsa Negative S.aureus Positive 04/23/17 15:53 Wound - Knee Left Gram Stain - Final 04/23/17 15:53 Wound - Knee Left Wound Culture - Final Staphylococcus Aureus 04/23/17 10:30 Joint Fluid(Synovial) - Knee Left Gram Stain - Final 04/23/17 10:30 Joint Fluid(Synovial) - Knee Left Body Fluid Culture - Final Staphylococcus Aureus 04/23/17 10:30 Joint Fluid(Synovial) - Knee Left Skin and Soft Tissue MRSA/ MSSA (PCR - Final Mrsa Negative S.aureus Positive 04/22/17 16:56 Wound - Abscess Anaerobic Culture - Final 04/22/17 16:56 Wound - Abscess Skin and Soft Tissue MRSA/MSSA (PCR - Final Mrsa Negative S.aureus Positive 04/22/17 16:56 Wound - Abscess Gram Stain - Final 04/22/17 16:56 Wound - Abscess Wound Culture - Final Staphylococcus Aureus 04/22/17 15:00 Wound - Other Anaerobic Culture - Final 04/22/17 15:00 Misc Source (See Comment) - Other Skin and Soft Tissue MRSA/ MSSA (PCR - Final Mrsa Negative S.aureus Positive 04/22/17 15:00 Misc Source (See Comment) - Other Gram Stain - Final 04/22/17 15:00 Misc Source (See Comment) - Other Wound Culture - Final Staphylococcus Aureus 04/21/17 05:40 Blood Venous Aerobic Blood Culture - Final Staphylococcus Aureus 04/21/17 05:40 Blood Venous Anaerobic Blood Culture - Final Staphylococcus Aureus 04/21/17 05:40 Blood Venous Blood MRSA/MSSA (PCR) - Final Mrsa Negative S.aureus Positive 04/21/17 04:40 Blood Venous Aerobic Blood Culture - Final Staphylococcus Aureus 04/21/17 04:40 Blood Venous Anaerobic Blood Culture - Final Staphylococcus Aureus 04/21/17 04:40 Blood Venous Blood MRSA/MSSA (PCR) - Final Mrsa Negative S.aureus Positive 04/22/17 06:20 Nasal Nasal Screen MRSA (PCR)(KEEGAN) - Final Mrsa Not Detected Assess/Plan/Problems-Billing Mr Bonilla is a 76 yo M with h/o HTN, multiple joint replacements, GI bleed (and partial colon resection due to bleed) who presented to the ER with c/o severe back pain and was ultimately found to a very large epidural abscess, R septic shoulder, L septic knee in the setting of MSSA bacteremia s/p drainage. s/p right psoas abscess drainage 05/14. Still not back to baseline mental status. - Patient Problems (1) MSSA bacteremia Current Visit: Yes Status: Acute Code(s): R78.81 - BACTEREMIA SNOMED Code( s): 650066662 Comment: BC negative since 05/09/17. Continue rifampin and ancef per Dr. Franklin. He will need lobsterman IV Abx and then life long oral Abx. The patient remains encephalopathic and it is unclear if he will have improvement in his mental status- today however he was able to quickly come up with being in [place] and at the hospital. (2) Epidural abscess Current Visit: Yes Status: Acute Code(s): G06.2 - EXTRADURAL AND SUBDURAL ABSCESS, UNSPECIFIED SNOMED Code(s): 73152207 Comment: The patient presented with a very large epidural abscess. He underwent multilevel skip laminectomies at C6-7, T2, T3, T5, T6, T8, T9, T10, T12, L3, L4, L5 on 04/22/17. Continue rifampin and ancef per Dr. Franklin. (3) Septic arthritis of knee, left Current Visit: Yes Status: Acute Code(s): M00.9 - PYOGENIC ARTHRITIS, UNSPECIFIED SNOMED Code(s): 286669242 Comment: The patient is s/p washout/debridement and liner exchange of the left knee total arthroplasty 04/23/17. Left knee aspiration on 05/08/17 has no growth so far. Plan for washout today. Continue ancef and rifampin per Dr. Franklin. (4) Septic arthritis of shoulder, right Current Visit: Yes Status: Acute Code(s): M00.9 - PYOGENIC ARTHRITIS, UNSPECIFIED SNOMED Code(s): 14263474 Comment: The patient is s/p washout/debridement of R shoulder 04/26/17. Plan for washout today. Continue ancef and rifampin. (5) Encephalopathy Current Visit: Yes Status: Acute Code(s): G93.40 - ENCEPHALOPATHY, UNSPECIFIED SNOMED Code(s): 93251558 Comment: Mental status has not improved much but today he was able to answer questions faster today. (6) HTN (hypertension) Current Visit: Yes Status: Acute Code(s): I10 - ESSENTIAL (PRIMARY) HYPERTENSION SNOMED Code(s): 97158883 Comment: BP under fair control on nebivolol 10mg daily and amlodipine 5mg daily. (7) DVT prophylaxis Current Visit: Yes Status: Acute Code(s): RZL8931 - SNOMED Code(s): 399148634 Comment: SQ heparin (8) Full code status Current Visit: Yes Status: Acute Code(s): Z78.9 - OTHER SPECIFIED HEALTH STATUS SNOMED Code(s): 839106156 Status and Disposition: medicine inpatient.
[2017-05-21] MEDS ORDERED: Midazolam* 1 MG/ML 5 ML VIAL (5 MG) ONE (14:21)
[2017-05-21] MEDS ORDERED: fentaNYL* 50 MCG/ML 2 ML VIAL (100 MCG VIAL) ONE (14:21)
[2017-05-21] MEDS ORDERED: Famotidine IV* 10 MG/ML 2 ML (20 mg) ONE (14:31)
[2017-05-21] MEDS ORDERED: ceFAZolin 2 GM PREMIX (*) 2 GM/50 ML BAG IVPB ONE (14:31)
[2017-05-21] MEDS ORDERED: EPINEPHRINE 1 MG/ML 1 ML VIAL ONE (16:16)
--- NOTE | 2017-05-21 16:56 | PN ---
Progress Note - Progress Note Date of Service: 05/21/17 SOAP: Subjective: Patient still poor at describing pain or lack thereof throughout body. Objective: RUE: - Shoulder PROM FF 90, ER 10, IR 80 with abduction - Inc c/d/i LLE: - Knee PROM 0-80 flexion - Inc c/d/i Selected Entries 05/21/17 13:46 Temperature 97.6 F Pulse Rate 65 Respiratory 16 Rate Blood Pressure 148/78 (mmHg) O2 Sat by Pulse 100 Oximetry Laboratory Tests 05/17/17 05/19/17 05/21/17 06:19 03:15 06:06 WBC 6.0 C-Reactive Protein 113.15 H 104.36 H Assessment: POD 28 open I&D left knee, e/o liner POD 25 arthroscopic I&D right shoulder Plan: - to OR for arthroscopic repeat I&D R shoulder and L knee - Consented, NPO, anticoagulation held
[2017-05-21] MEDS ORDERED: Bupivacaine 0.5% SDV PF* 10-30ML VIAL ONE (18:28)
[2017-05-21] MEDS ORDERED: Alteplase (CATHFLO)* 2 MG VIAL IV ONE (19:00)
[2017-05-21] MEDS ORDERED: Norepinephrine VIAL* 1 MG/ML 4 ML VIAL ONE (19:18)
[2017-05-21] MEDS ORDERED: Propofol* 10 MG/ML 20 ML BTL IV PUSH ONE (19:19)
[2017-05-21] MEDS ORDERED: Lidocaine 2% PF * 5 ML VIAL ONE (19:19)
[2017-05-21] MEDS ORDERED: Phenylephrine INJ* 10 MG/ML 1 ML VIAL (10 MG) ONE (19:19)
[2017-05-21] MEDS ORDERED: Naloxone* 0.4 MG/ML 1 ML VIAL IV PRN (20:15)
[2017-05-21] MEDS ORDERED: fentaNYL* 50 MCG/ML 2 ML VIAL (100 MCG VIAL) IV PRN (20:15)
[2017-05-21] MEDS: Atorvastatin* 20 MG TAB PO SCH (22:36)
[2017-05-21] MEDS ORDERED: hydrALAZINE IV* 20 MG/ML VIAL ONE (23:45)
[2017-05-21] MEDS: hydrALAZINE IV* 20 MG/ML VIAL IV PRN (23:48)
--- NOTE | 2017-05-22 09:50 | PN ---
Progress Note - Progress Note Date of Service: 05/22/17 SOAP: Subjective: resting comfortably in bed, reports no pain, answering questions well without confusion Objective: Vital Signs Temp Pulse Resp BP Pulse Ox 98.6 F 77 18 173/72 99 05/22/17 07:19 05/22/17 07:19 05/22/17 07:23 05/22/17 07:19 05/22/17 07:23 Laboratory Last Values WBC 6.0 10^3/ul (3.5-10.8) 05/21/17 06:06 RBC 2.37 10^6/ul (4.0-5.4) L 05/21/17 06:06 Hgb 7.0 g/dl (14.0-18.0) L 05/21/17 06:06 Hct 21 % (42-52) L 05/21/17 06:06 MCV 88 fL (80-94) 05/21/17 06:06 MCH 30 pg (27-31) 05/21/17 06:06 MCHC 33 g/dl (31-36) 05/21/17 06:06 RDW 17 % (10.5-15) H 05/21/17 06:06 Plt Count 255 10^3/ul (150-450) 05/21/17 06:06 MPV 6.8 um3 (7.4-10.4) L 05/21/17 06:06 Neut % (Auto) 67.5 % (38-83) 05/20/17 06:03 Lymph % (Auto) 13.2 % (25-47) L 05/20/17 06:03 [place] % (Auto) 13.3 % (0-7) H 05/20/17 06:03 Eos % (Auto) 5.6 % (0-6) 05/20/17 06:03 Baso % (Auto) 0.4 % (0-2) 05/20/17 06:03 Absolute Neuts (auto) 4.5 10^3/ul (1.5-7.7) 05/20/17 06:03 Absolute Lymphs (auto) 0.9 10^3/ul (1.0-4.8) L 05/20/17 06:03 Absolute Monos (auto) 0.9 10^3/ul (0-0.8) H 05/20/17 06:03 Absolute Eos (auto) 0.4 10^3/ul (0-0.6) 05/20/17 06:03 Absolute Basos (auto) 0 10^3/ul (0-0.2) 05/20/17 06:03 Absolute Nucleated RBC 0 10^3/ul 05/20/17 06:03 Immature Gran % 5 % (0-9) 05/17/17 06:16 Neutrophils % 72 % (38-83) 05/17/17 06:16 Band Neutrophils % 1 % (0-8) 04/30/17 05:38 Lymphocytes % 11 % (25-47) L 05/17/17 06:16 Monocytes % 8 % (0-7) H 05/17/17 06:16 Eosinophils % 4 % (0-6) 05/17/17 06:16 Basophils % 0 % (0-2) 05/17/17 06:16 Metamyelocytes % 1 % (0-2) 05/17/17 06:16 Myelocytes % 4 % (0-1) H 05/17/17 06:16 Nucleated RBC % 0 05/20/17 06:03 Abs Neuts (Manual) 4.8 10^3/ul (1.5-7.7) 05/17/17 06:16 Abs Lymphs (Manual) 0.7 10^3/ul (1.0-4.8) L 05/17/17 06:16 Abs Monocytes (Manual) 0.5 10^3/ul (0-0.8) 05/17/17 06:16 Absolute Eos (Manual) 0.3 10^3/ul (0-0.6) 05/17/17 06:16 Abs Basophils (Manual) 0 10^3/ul (0-0.2) 05/17/17 06:16 Normal RBC Morphology Normal (Normal) 05/17/17 06:16 Polychromasia 1+ 05/19/17 03:15 Microcytosis 2+ 05/19/17 03:15 INR (Anticoag Therapy) 1.59 (0.77-1.02) H 05/21/17 06:06 APTT 35.6 seconds (26.0-36.3) 04/23/17 00:48 Patient Temperature Not Reportable 04/23/17 00:48 ABG pH 7.44 (7.35-7.45) 03 00:48 ABG pH (Temp Correct) Not Reportable 04/23/17 00:48 ABG pCO2 31 mmHg (35-45) L 03 00:48 ABG pCO2 (Temp Corrct Not Reportable 04/23/17 00:48 ABG pO2 128 mmHg (80-100) H 04/23/17 00:48 ABG pO2 (Temp Correct Not Reportable 04/23/17 00:48 ABG HCO3 23.0 mmol/L (19-31) 04/23/17 00:48 ABG O2 Saturation 99.2 % (95-98) H 04/23/17 00:48 ABG Base Excess -2.5 (-2.0-2.0) L 04/23/17 00:48 Respiration Rate 14 04/23/17 00:48 O2 Delivery Device ventilator 04/23/17 00:48 Ventilator Type 600 04/23/17 00:48 Vent Mode apv 04/23/17 00:48 FiO2 50 03 00:48 Inspiratory Time 1.0 03 00:48 PEEP 5 03 00:48 Pressure Support Not Reportable 04/23/17 00:48 Pressure Control Not Reportable 04/23/17 00:48 EPAP Not Reportable 04/23/17 00:48 IPAP Not Reportable 04/23/17 00:48 BiPAP Not Reportable 04/23/17 00:48 Sodium 143 mmol/L (139-145) 05/21/17 06:06 Potassium 3.5 mmol/L (3.5-5.0) 05/21/17 06:06 Chloride 110 mmol/L (101-111) 05/21/17 06:06 Carbon Dioxide 25 mmol/L (22-32) 05/21/17 06:06 Anion Gap 8 mmol/L (2-11) 05/21/17 06:06 BUN 9 mg/dL (6-24) 05/21/17 06:06 Creatinine 0.70 mg/dL (0.67-1.17) 05/21/17 06:06 Est GFR ( Amer) 141.8 (>60) 05/21/17 06:06 Est GFR (Non-Af Amer) 110.2 (>60) 05/21/17 06:06 BUN/Creatinine Ratio 12.9 (8-20) 05/21/17 06:06 Glucose 86 mg/dL (70-100) 05/21/17 06:06 POC Glucose (mg/dL) 99 mg/dL (70-100) 05/21/17 22:03 Lactic Acid 1.1 mmol/L (0.5-2.0) 04/21/17 08:43 Calcium 7.4 mg/dL (8.6-10.3) L 05/21/17 06:06 Phosphorus 4.3 mg/dL (2.5-5.0) 05/06/17 05:05 Magnesium 1.9 mg/dL (1.9-2.7) 05/20/17 06:03 Iron < 15 ug/dL (50-212) L 05/12/17 14:24 TIBC 151 mcg/dL (250-450) L 05/12/17 14:24 % Saturation 10 % (15-55) L 05/12/17 14:24 Unsat Iron Binding 136.27249 ug/dL 05/12/17 14:24 Transferrin 108 mg/dL (203-362) L 05/12/17 14:24 Ferritin 1062.7 ng/mL (24-336) H 05/12/17 14:24 Total Bilirubin 0.70 mg/dL (0.2-1.0) 05/03/17 05:05 AST 27 U/L (13-39) 05/03/17 05:05 ALT 22 U/L (7-52) 05/03/17 05:05 Alkaline Phosphatase 95 U/L (34-104) 05/03/17 05:05 Ammonia 19 mol/L (16-53) 05/12/17 05:47 Troponin I 0.03 ng/mL (<0.04) 04/21/17 04:40 C-Reactive Protein 104.36 mg/L (< 5.00) H 05/19/17 03:15 Total Protein 5.4 g/dL (6.4-8.9) L 05/03/17 05:05 Albumin 2.1 g/dL (3.2-5.2) L 05/11/17 05:30 Globulin 3.4 g/dL (2-4) 05/03/17 05:05 Albumin/Globulin Ratio 0.6 (1-3) L 05/03/17 05:05 Prealbumin 6 mg/dL (18-38) L 05/11/17 05:30 Lipase 28 U/L (11.0-82.0) 04/21/17 04:40 Fluid Source Synovial fluid 05/08/17 19:15 Fluid Volume 20 mL 05/08/17 19:15 Fluid Color Red 05/08/17 19:15 Fluid Appearance Bloody 05/08/17 19:15 Fluid WBC 8676 /mcL (0-286017) 05/08/17 19:15 Fluid RBC 20612 /mcL 05/08/17 19:15 Fluid Tot Cell Count 100 05/08/17 19:15 Fluid Neutrophils 93 % 05/08/17 19:15 Fluid Band Neutrophils 3 % 05/08/17 19:15 Fluid Lymphocytes 3 % 05/08/17 19:15 Fluid Reactive Lymphs Cancelled 05/14/17 14:30 Fluid Monocytes 1 % 05/08/17 19:15 Fluid Eosinophils Cancelled 05/14/17 14:30 Fluid Basophils Cancelled 05/14/17 14:30 Fluid Promyelocytes Cancelled 05/14/17 14:30 Fluid Myelocytes Cancelled 05/14/17 14:30 Fluid Metamyelocytes Cancelled 05/14/17 14:30 Fluid Blast Cells Cancelled 05/14/17 14:30 Fluid Nucleated RBCs Cancelled 05/14/17 14:30 Fluid Other Cells 1 04/23/17 10:30 Fluid Cell Count Rvw By 05/08/17 19:15 Fluid Crystals None seen (None Seen) 05/08/17 19:15 Fluid Total Protein 3.1 g/dL 04/23/17 10:30 Fluid Comment Cancelled 05/14/17 14:30 Blood Type O Positive 05/19/17 03:15 Antibody Screen Negative 05/19/17 03:15 Crossmatch See Detail 05/19/17 03:15 incision: c/d/i; drain intact with minimal drainage PE: NVI Assessment: s/p right shoulder and left knee I&D Plan: 1) continue Abx per ID 2) Hospitalist co-managing 3) awaiting final culture results 4) will change dressings and pull drain tomorrow
[2017-05-22] MEDS: Multivitamins ADULT w/MIN LIQ* 15 ML UDC PO SCH (09:56)
[2017-05-22] MEDS: CEFAZOLIN IVPB SCH ×2 (09:56→16:10)
[2017-05-22] MEDS: NS 0.9% IVPB SCH ×2 (09:56→16:10)
[2017-05-22] MEDS: Polyethylene Glycol 3350* 17 GM PACKET PO SCH (09:57)
[2017-05-22] MEDS: Allopurinol TAB* 100 MG PO SCH (09:57)
[2017-05-22] MEDS: RiFAMPin CAP* 300 MG CAP PO SCH (09:57)
[2017-05-22] MEDS: Thiamine TAB* 100 MG TAB PO SCH (09:57)
[2017-05-22] MEDS: CMCS: Nebivolol TAB (NF) 2.5 MG TAB PO SCH (09:57)
[2017-05-22] MEDS: amLODIPine TAB* 5 MG PO SCH (09:57)
[2017-05-22] MEDS: Magnesium Oxide TAB* 400 MG PO SCH (09:57)
[2017-05-22] MEDS: Potassium Chloride LIQUID* 20 MEQ PACKET PO SCH ×3 (09:57→20:08)
[2017-05-22] MEDS: hydrALAZINE IV* 20 MG/ML VIAL IV PRN (16:00)
[2017-05-22] MEDS: Atorvastatin* 20 MG TAB PO SCH (16:10)
--- NOTE | 2017-05-22 16:24 | PN ---
Subjective Date of Service: 05/22/17 Interval History: Pleasantly confused. Knows name but not location or year. Able to converse but unable to identify needs Objective Active Medications: Acetaminophen (Tylenol Tab*) 650 mg PO Q4H PRN PRN Reason: FEVER Last Admin: 05/13/17 16:40 Dose: 650 mg Allopurinol (Zyloprim Tab*) 100 mg PO QAM [facility] Last Admin: 05/22/17 09:57 Dose: 100 mg Amlodipine Besylate (Norvasc Tab*) 5 mg PO DAILY [facility] Last Admin: 05/22/17 09:57 Dose: 5 mg Atorvastatin Calcium (Lipitor*) 20 mg PO 1700 [facility] Last Admin: 05/22/17 16:10 Dose: 20 mg Bisacodyl (Dulcolax Supp*) 10 mg [facility] DAILY PRN PRN Reason: CONSTIPATION Last Admin: 05/19/17 11:07 Dose: 10 mg Docusate Sodium (Colace Cap*) 100 mg PO DAILY PRN PRN Reason: CONSTIPATION Last Admin: 05/18/17 16:48 Dose: 100 mg Heparin Sodium (Porcine) (Heparin Flush Picc/Ml/Cvc(*)) 1 - 3 ml FLUSH 0600, 1800 [facility] PRN Reason: Protocol Last Admin: 05/22/17 16:10 Dose: 1 ml Hydralazine HCl (Apresoline Iv*) 10 mg IV Q4H PRN PRN Reason: Systolic >170 Last Admin: 05/22/17 16:00 Dose: 10 mg Cefazolin Sodium 2 gm/ Sodium (Chloride) 20 mls @ 60 mls/hr IVPB 0100,0900, 1700 [facility] Last Admin: 05/22/17 16:10 Dose: 60 mls/hr Magnesium Hydroxide (Milk Of Magnesia Liq*) 30 ml PO Q4H PRN PRN Reason: CONSTIPATION Last Admin: 05/19/17 11:05 Dose: 30 ml Magnesium Oxide (Magox 400 Tab*) 400 mg PO DAILY [facility] Last Admin: 05/22/17 09:57 Dose: 400 mg Multivitamins (Theragran W/Minerals Liq*) 15 ml PO DAILY [facility] Last Admin: 05/22/17 09:56 Dose: 15 ml Nebivolol (Bystolic Tab (Nf)) 10 mg PO QAM [facility] Last Admin: 05/22/17 09:57 Dose: 10 mg Ondansetron HCl (Zofran Inj*) 4 mg IV Q6H PRN PRN Reason: NAUSEA/VOMITING Last Admin: 05/16/17 09:31 Dose: 4 mg Polyethylene Glycol/Electrolytes (Miralax*) 17 gm PO DAILY [facility] Last Admin: 05/22/17 09:57 Dose: 17 gm Polyvinyl Alcohol (Polyvinyl Alcohol 1.4% Opth*) 1 drop BOTH EYES Q2H PRN PRN Reason: DRY EYE Last Admin: 05/20/17 16:53 Dose: 1 drop Potassium Chloride (Klor-Con Liquid*) 20 meq PO TID [facility] Last Admin: 05/22/17 13:52 Dose: 20 meq Rifampin (Rifampin Cap*) 600 mg PO DAILY [facility] Last Admin: 05/22/17 09:57 Dose: 600 mg Sodium Biphosphate/Sodium Phosphate (Fleet Enema*) 1 bottle [facility] DAILY PRN PRN Reason: CONSTIPATION Thiamine HCl (Vitamin B-1 Tab*) 100 mg PO DAILY [facility] Last Admin: 05/22/17 09:57 Dose: 100 mg Vital Signs - 8 hr 05/22/17 05/22/17 05/22/17 11:57 15:37 15:38 Temperature 98.1 F Pulse Rate 77 72 Respiratory 18 20 Rate Blood Pressure 155/79 174/84 (mmHg) O2 Sat by Pulse 99 98 Oximetry Oxygen Devices in Use Now: None Appearance: NAD Eyes: No Scleral Icterus, PERRLA Ears/Nose/Mouth/Throat: Clear Oropharnyx, Mucous Membranes Moist Neck: NL Appearance and Movements; NL JVP, Trachea Midline Respiratory: Symmetrical Chest Expansion and Respiratory Effort, Clear to Auscultation Cardiovascular: RRR Abdominal: NL Sounds; No Tenderness; No Distention, No Hepatosplenomegaly Extremities: - - right shoulder dressed, left leg wrapped, back not examined Neurological: - - AOx1 to self, able to talk cogently about his past work experience and family/names/location but unable to say where he is or spell WOR[place] forwards Result Diagrams: 05/21/17 06:06 05/21/17 06:06 Additional Lab and Data: Laboratory Results - last 24 hr 05/16/17 05/16/17 05/17/17 20:07 20:07 06:16 WBC 8.2 6.6 RBC 2.44 L 2.33 L Hgb 7.3 L 7.1 L Hct 22 L 21 L MCV 91 91 MCH 30 30 MCHC 33 33 RDW 16 H 16 H Plt Count 356 331 MPV 6.6 L 6.8 L Neut % (Auto) 70.6 Not Reportable Lymph % (Auto) 11.5 L Not Reportable [place] % (Auto) 9.3 H Not Reportable Eos % (Auto) 7.6 H Not Reportable Baso % (Auto) 1.0 Not Reportable Absolute Neuts (auto) 5.8 4.3 Absolute Lymphs (auto) 0.9 L 0.9 L Absolute Monos (auto) 0.8 0.7 Absolute Eos (auto) 0.6 0.6 Absolute Basos (auto) 0.1 0 Absolute Nucleated RBC 0 0 Immature Gran % 5 Neutrophils % 72 Lymphocytes % 11 L Monocytes % 8 H Eosinophils % 4 Basophils % 0 Metamyelocytes % 1 Myelocytes % 4 H Nucleated RBC % 0 0 Abs Neuts (Manual) 4.8 Abs Lymphs (Manual) 0.7 L Abs Monocytes (Manual) 0.5 Absolute Eos (Manual) 0.3 Abs Basophils (Manual) 0 Normal RBC Morphology Normal Sodium 139 Potassium 4.0 Chloride 106 Carbon Dioxide 24 Anion Gap 9 BUN 11 Creatinine 0.94 Est GFR ( Amer) 100.9 Est GFR (Non-Af Amer) 78.4 BUN/Creatinine Ratio 11.7 Glucose 82 Calcium 7.7 L Magnesium 1.8 L C-Reactive Protein 05/17/17 06:19 WBC RBC Hgb Hct MCV MCH MCHC RDW Plt Count MPV Neut % (Auto) Lymph % (Auto) [place] % (Auto) Eos % (Auto) Baso % (Auto) Absolute Neuts (auto) Absolute Lymphs (auto) Absolute Monos (auto) Absolute Eos (auto) Absolute Basos (auto) Absolute Nucleated RBC Immature Gran % Neutrophils % Lymphocytes % Monocytes % Eosinophils % Basophils % Metamyelocytes % Myelocytes % Nucleated RBC % Abs Neuts (Manual) Abs Lymphs (Manual) Abs Monocytes (Manual) Absolute Eos (Manual) Abs Basophils (Manual) Normal RBC Morphology Sodium 140 Potassium 3.4 L Chloride 106 Carbon Dioxide 24 Anion Gap 10 BUN 11 Creatinine 0.89 Est GFR ( Amer) 107.5 Est GFR (Non-Af Amer) 83.6 BUN/Creatinine Ratio 12.4 Glucose 69 L Calcium 7.8 L Magnesium 1.7 L C-Reactive Protein 113.15 H Microbiology and Other Data: Microbiology 04/23/17 10:30 Misc Source (See Comment) - Other Fungal Culture - Preliminary 05/14/17 14:30 Misc Fluid (See Comment) - Abscess Gram Stain - Final 05/14/17 14:30 Misc Fluid (See Comment) - Abscess Body Fluid Culture - Preliminary No Growth Day 2 05/14/17 14:30 Misc Fluid (See Comment) - Abscess Skin and Soft Tissue MRSA/ MSSA (PCR - Final Mrsa Negative S.aureus Positive 05/12/17 01:30 Blood Venous Aerobic Blood Culture - Final No Growth Day 5 05/12/17 01:30 Blood Venous Anaerobic Blood Culture - Final No Growth Day 5 05/12/17 01:30 Blood Venous Aerobic Blood Culture - Final No Growth Day 5 05/12/17 01:30 Blood Venous Anaerobic Blood Culture - Final No Growth Day 5 05/12/17 00:48 Blood Venous Aerobic Blood Culture - Final No Growth Day 5 05/12/17 00:48 Blood Venous Anaerobic Blood Culture - Final No Growth Day 5 05/09/17 17:00 Blood Venous Aerobic Blood Culture - Final No Growth Day 5 05/09/17 17:00 Blood Venous Anaerobic Blood Culture - Final No Growth Day 5 05/09/17 17:00 Blood Venous Aerobic Blood Culture - Final No Growth Day 5 05/09/17 17:00 Blood Venous Anaerobic Blood Culture - Final No Growth Day 5 05/08/17 19:15 Joint Fluid(Synovial) Gram Stain - Final 05/08/17 19:15 Joint Fluid(Synovial) Body Fluid Culture - Final No Growth Day 4 05/08/17 19:15 Joint Fluid(Synovial) Skin and Soft Tissue MRSA/MSSA (PCR - Final Mrsa Negative S.aureus Negative 05/08/17 19:15 Body Fluid Gram Stain - Final 05/08/17 19:15 Body Fluid Body Fluid Culture - Final No Growth Day 4 05/08/17 19:15 Body Fluid Skin and Soft Tissue MRSA/MSSA (PCR - Final Mrsa Negative S.aureus Positive 04/27/17 08:00 Blood Venous Aerobic Blood Culture - Final No Growth Day 5 04/27/17 08:00 Blood Venous Anaerobic Blood Culture - Final No Growth Day 5 04/27/17 06:10 Blood Venous Aerobic Blood Culture - Final Staphylococcus Epidermidis 04/27/17 06:10 Blood Venous Anaerobic Blood Culture - Final No Growth Day 5 04/27/17 06:10 Blood Venous Blood MRSA/MSSA (PCR) - Final Mrsa Negative S.aureus Negative 04/26/17 21:00 Wound - Wound Anaerobic Culture - Final 04/26/17 21:00 Wound - Wound Skin and Soft Tissue MRSA/MSSA (PCR - Final Mrsa Negative S.aureus Positive 04/26/17 21:00 Wound - Wound Gram Stain - Final 04/26/17 21:00 Wound - Wound Wound Culture - Final Staphylococcus Aureus 04/23/17 15:53 Wound - Knee Left Anaerobic Culture - Final 04/23/17 15:53 Wound - Knee Left Skin and Soft Tissue MRSA/MSSA (PCR - Final Mrsa Negative S.aureus Positive 04/23/17 15:53 Wound - Knee Left Gram Stain - Final 04/23/17 15:53 Wound - Knee Left Wound Culture - Final Staphylococcus Aureus 04/23/17 10:30 Joint Fluid(Synovial) - Knee Left Gram Stain - Final 04/23/17 10:30 Joint Fluid(Synovial) - Knee Left Body Fluid Culture - Final Staphylococcus Aureus 04/23/17 10:30 Joint Fluid(Synovial) - Knee Left Skin and Soft Tissue MRSA/ MSSA (PCR - Final Mrsa Negative S.aureus Positive 04/22/17 16:56 Wound - Abscess Anaerobic Culture - Final 04/22/17 16:56 Wound - Abscess Skin and Soft Tissue MRSA/MSSA (PCR - Final Mrsa Negative S.aureus Positive 04/22/17 16:56 Wound - Abscess Gram Stain - Final 04/22/17 16:56 Wound - Abscess Wound Culture - Final Staphylococcus Aureus 04/22/17 15:00 Wound - Other Anaerobic Culture - Final 04/22/17 15:00 Misc Source (See Comment) - Other Skin and Soft Tissue MRSA/ MSSA (PCR - Final Mrsa Negative S.aureus Positive 04/22/17 15:00 Misc Source (See Comment) - Other Gram Stain - Final 04/22/17 15:00 Misc Source (See Comment) - Other Wound Culture - Final Staphylococcus Aureus 04/21/17 05:40 Blood Venous Aerobic Blood Culture - Final Staphylococcus Aureus 04/21/17 05:40 Blood Venous Anaerobic Blood Culture - Final Staphylococcus Aureus 04/21/17 05:40 Blood Venous Blood MRSA/MSSA (PCR) - Final Mrsa Negative S.aureus Positive 04/21/17 04:40 Blood Venous Aerobic Blood Culture - Final Staphylococcus Aureus 04/21/17 04:40 Blood Venous Anaerobic Blood Culture - Final Staphylococcus Aureus 04/21/17 04:40 Blood Venous Blood MRSA/MSSA (PCR) - Final Mrsa Negative S.aureus Positive 04/22/17 06:20 Nasal Nasal Screen MRSA (PCR)(KEEGAN) - Final Mrsa Not Detected Assess/Plan/Problems-Billing Mr Bonilla is a 76 yo M with h/o HTN, multiple joint replacements, GI bleed (and partial colon resection due to bleed) who presented to the ER with c/o fever and severe back pain and was ultimately found to a very large epidural abscess/ septic joints, R septic shoulder, L septic knee, right psoas abscess s/p drainage in the setting of MSSA bacteremia (presumably from IV placed in ED at previous visit) with stay notable for delerium - Patient Problems (1) Encephalopathy Comment: Suspect delerium in setting of serious illness and prolonged hospital stay (2) Epidural abscess Comment: The patient presented with a very large epidural abscess with associated septic arthristis He underwent multilevel skip laminectomies at C6-7 - L5 on 04/22/17. Continue rifampin and ancef per Dr. Franklin. (3) MSSA bacteremia Comment: BC negative since 05/09/17. Continue rifampin and ancef per Dr. Franklin. He will need [facility] IV Abx and then life long oral Abx. (4) Septic arthritis of knee, left Comment: The patient is s/p washout/debridement and liner exchange of the left knee total arthroplasty 04/23/17, Left knee aspiration on 05/08/17 and repeat washout 05/21 Continue ancef and rifampin (5) Septic arthritis of shoulder, right Comment: The patient is s/p washout/debridement of R shoulder 04/26/17 and washout 05/21 Continue ancef and rifampin. (6) HTN (hypertension) Comment: c/w nebivolol 10mg daily and amlodipine 5mg daily. (7) DVT prophylaxis Comment: SQ heparin Status and Disposition: medicine inpatient.
[2017-05-23] MEDS: NS 0.9% IVPB SCH ×3 (01:04→17:02)
[2017-05-23] MEDS: CEFAZOLIN IVPB SCH ×3 (01:04→17:02)
[2017-05-23 06:55] LABS: EGFR Non-African American 108.4 (>60)
[2017-05-23] MEDS: Potassium Chloride LIQUID* 20 MEQ PACKET PO SCH ×3 (09:39→21:27)
[2017-05-23] MEDS: CMCS: Nebivolol TAB (NF) 2.5 MG TAB PO SCH (09:39)
[2017-05-23] MEDS: Polyethylene Glycol 3350* 17 GM PACKET PO SCH ×2 (09:39→09:48)
[2017-05-23] MEDS: Multivitamins ADULT w/MIN LIQ* 15 ML UDC PO SCH (09:40)
[2017-05-23] MEDS: Magnesium Oxide TAB* 400 MG PO SCH (09:40)
[2017-05-23] MEDS: Thiamine TAB* 100 MG TAB PO SCH (09:40)
[2017-05-23] MEDS: amLODIPine TAB* 5 MG PO SCH (09:40)
[2017-05-23] MEDS: Allopurinol TAB* 100 MG PO SCH (09:40)
--- NOTE | 2017-05-23 10:18 | PN ---
Progress Note - Progress Note Date of Service: 05/23/17 SOAP: Subjective: resting comfortably, moderately confused, no complaints of pain Objective: Vital Signs Temp Pulse Resp BP Pulse Ox 99.0 F 75 20 141/70 95 05/23/17 08:08 05/23/17 08:08 05/23/17 08:08 05/23/17 08:08 05/23/17 08:08 Laboratory Last Values WBC 6.0 10^3/ul (3.5-10.8) 05/21/17 06:06 RBC 2.37 10^6/ul (4.0-5.4) L 05/21/17 06:06 Hgb 7.0 g/dl (14.0-18.0) L 05/21/17 06:06 Hct 21 % (42-52) L 05/21/17 06:06 MCV 88 fL (80-94) 05/21/17 06:06 MCH 30 pg (27-31) 05/21/17 06:06 MCHC 33 g/dl (31-36) 05/21/17 06:06 RDW 17 % (10.5-15) H 05/21/17 06:06 Plt Count 255 10^3/ul (150-450) 05/21/17 06:06 MPV 6.8 um3 (7.4-10.4) L 05/21/17 06:06 Neut % (Auto) 67.5 % (38-83) 05/20/17 06:03 Lymph % (Auto) 13.2 % (25-47) L 05/20/17 06:03 [place] % (Auto) 13.3 % (0-7) H 05/20/17 06:03 Eos % (Auto) 5.6 % (0-6) 05/20/17 06:03 Baso % (Auto) 0.4 % (0-2) 05/20/17 06:03 Absolute Neuts (auto) 4.5 10^3/ul (1.5-7.7) 05/20/17 06:03 Absolute Lymphs (auto) 0.9 10^3/ul (1.0-4.8) L 05/20/17 06:03 Absolute Monos (auto) 0.9 10^3/ul (0-0.8) H 05/20/17 06:03 Absolute Eos (auto) 0.4 10^3/ul (0-0.6) 05/20/17 06:03 Absolute Basos (auto) 0 10^3/ul (0-0.2) 05/20/17 06:03 Absolute Nucleated RBC 0 10^3/ul 05/20/17 06:03 Immature Gran % 5 % (0-9) 05/17/17 06:16 Neutrophils % 72 % (38-83) 05/17/17 06:16 Band Neutrophils % 1 % (0-8) 04/30/17 05:38 Lymphocytes % 11 % (25-47) L 05/17/17 06:16 Monocytes % 8 % (0-7) H 05/17/17 06:16 Eosinophils % 4 % (0-6) 05/17/17 06:16 Basophils % 0 % (0-2) 05/17/17 06:16 Metamyelocytes % 1 % (0-2) 05/17/17 06:16 Myelocytes % 4 % (0-1) H 05/17/17 06:16 Nucleated RBC % 0 05/20/17 06:03 Abs Neuts (Manual) 4.8 10^3/ul (1.5-7.7) 05/17/17 06:16 Abs Lymphs (Manual) 0.7 10^3/ul (1.0-4.8) L 05/17/17 06:16 Abs Monocytes (Manual) 0.5 10^3/ul (0-0.8) 05/17/17 06:16 Absolute Eos (Manual) 0.3 10^3/ul (0-0.6) 05/17/17 06:16 Abs Basophils (Manual) 0 10^3/ul (0-0.2) 05/17/17 06:16 Normal RBC Morphology Normal (Normal) 05/17/17 06:16 Polychromasia 1+ 05/19/17 03:15 Microcytosis 2+ 05/19/17 03:15 INR (Anticoag Therapy) 1.59 (0.77-1.02) H 05/21/17 06:06 APTT 35.6 seconds (26.0-36.3) 04/23/17 00:48 Patient Temperature Not Reportable 04/23/17 00:48 ABG pH 7.44 (7.35-7.45) 04/23/17 00:48 ABG pH (Temp Correct) Not Reportable 04/23/17 00:48 ABG pCO2 31 mmHg (35-45) L 04/23/17 00:48 ABG pCO2 (Temp Corrct Not Reportable 04/23/17 00:48 ABG pO2 128 mmHg (80-100) H 04/23/17 00:48 ABG pO2 (Temp Correct Not Reportable 04/23/17 00:48 ABG HCO3 23.0 mmol/L (19-31) 04/23/17 00:48 ABG O2 Saturation 99.2 % (95-98) H 04/23/17 00:48 ABG Base Excess -2.5 (-2.0-2.0) L 03 00:48 Respiration Rate 14 04/23/17 00:48 O2 Delivery Device ventilator 03 00:48 Ventilator Type 600 04/23/17 00:48 Vent Mode apv 04/23/17 00:48 FiO2 50 03 00:48 Inspiratory Time 1.0 04/23/17 00:48 PEEP 5 03 00:48 Pressure Support Not Reportable 04/23/17 00:48 Pressure Control Not Reportable 04/23/17 00:48 EPAP Not Reportable 04/23/17 00:48 IPAP Not Reportable 04/23/17 00:48 BiPAP Not Reportable 04/23/17 00:48 Sodium 142 mmol/L (139-145) 05/23/17 06:22 Potassium 3.3 mmol/L (3.5-5.0) L 05/23/17 06:22 Chloride 109 mmol/L (101-111) 05/23/17 06:22 Carbon Dioxide 24 mmol/L (22-32) 05/23/17 06:22 Anion Gap 9 mmol/L (2-11) 05/23/17 06:22 BUN 8 mg/dL (6-24) 05/23/17 06:22 Creatinine 0.71 mg/dL (0.67-1.17) 05/23/17 06:22 Est GFR ( Amer) 139.5 (>60) 05/23/17 06:22 Est GFR (Non-Af Amer) 108.4 (>60) 05/23/17 06:22 BUN/Creatinine Ratio 11.3 (8-20) 05/23/17 06:22 Glucose 81 mg/dL (70-100) 05/23/17 06:22 POC Glucose (mg/dL) 99 mg/dL (70-100) 05/21/17 22:03 Lactic Acid 1.1 mmol/L (0.5-2.0) 04/21/17 08:43 Calcium 7.2 mg/dL (8.6-10.3) L 05/23/17 06:22 Phosphorus 4.3 mg/dL (2.5-5.0) 05/06/17 05:05 Magnesium 1.9 mg/dL (1.9-2.7) 05/20/17 06:03 Iron < 15 ug/dL (50-212) L 05/12/17 14:24 TIBC 151 mcg/dL (250-450) L 05/12/17 14:24 % Saturation 10 % (15-55) L 05/12/17 14:24 Unsat Iron Binding 136.15482 ug/dL 05/12/17 14:24 Transferrin 108 mg/dL (203-362) L 05/12/17 14:24 Ferritin 1062.7 ng/mL (24-336) H 05/12/17 14:24 Total Bilirubin 0.70 mg/dL (0.2-1.0) 05/03/17 05:05 AST 27 U/L (13-39) 05/03/17 05:05 ALT 22 U/L (7-52) 05/03/17 05:05 Alkaline Phosphatase 95 U/L (34-104) 05/03/17 05:05 Ammonia 19 mol/L (16-53) 05/12/17 05:47 Troponin I 0.03 ng/mL (<0.04) 04/21/17 04:40 C-Reactive Protein 104.36 mg/L (< 5.00) H 05/19/17 03:15 Total Protein 5.4 g/dL (6.4-8.9) L 05/03/17 05:05 Albumin 2.1 g/dL (3.2-5.2) L 05/11/17 05:30 Globulin 3.4 g/dL (2-4) 05/03/17 05:05 Albumin/Globulin Ratio 0.6 (1-3) L 05/03/17 05:05 Prealbumin 6 mg/dL (18-38) L 05/11/17 05:30 Lipase 28 U/L (11.0-82.0) 04/21/17 04:40 Fluid Source Synovial fluid 05/08/17 19:15 Fluid Volume 20 mL 05/08/17 19:15 Fluid Color Red 05/08/17 19:15 Fluid Appearance Bloody 05/08/17 19:15 Fluid WBC 8676 /mcL ([id number]) 05/08/17 19:15 Fluid RBC 43871 /mcL 05/08/17 19:15 Fluid Tot Cell Count 100 05/08/17 19:15 Fluid Neutrophils 93 % 05/08/17 19:15 Fluid Band Neutrophils 3 % 05/08/17 19:15 Fluid Lymphocytes 3 % 05/08/17 19:15 Fluid Reactive Lymphs Cancelled 05/14/17 14:30 Fluid Monocytes 1 % 05/08/17 19:15 Fluid Eosinophils Cancelled 05/14/17 14:30 Fluid Basophils Cancelled 05/14/17 14:30 Fluid Promyelocytes Cancelled 05/14/17 14:30 Fluid Myelocytes Cancelled 05/14/17 14:30 Fluid Metamyelocytes Cancelled 05/14/17 14:30 Fluid Blast Cells Cancelled 05/14/17 14:30 Fluid Nucleated RBCs Cancelled 05/14/17 14:30 Fluid Other Cells 1 04/23/17 10:30 Fluid Cell Count Rvw By 05/08/17 19:15 Fluid Crystals None seen (None Seen) 05/08/17 19:15 Fluid Total Protein 3.1 g/dL 04/23/17 10:30 Fluid Comment Cancelled 05/14/17 14:30 Blood Type O Positive 05/19/17 03:15 Antibody Screen Negative 05/19/17 03:15 Crossmatch See Detail 05/19/17 03:15 incision: c/d; dressing changed drain with less than 50cc; removed PE: NVI Assessment: s/p I&D right shoulder and left knee Plan: 1) PT/OT 2) continue Abx per ID 3) hospitalist co-managing 4) dressing changed today; will continue to monitor and change dressings
--- NOTE | 2017-05-23 15:34 | PN ---
Subjective Date of Service: 05/23/17 Interval History: Noted to be more delirious overnight, calling out for help Similarly, calling out from his room today but could not indicate what he needs. AOx2 to self and "hospital" Does not indicate any complaints Objective Active Medications: Acetaminophen (Tylenol Tab*) 650 mg PO Q4H PRN PRN Reason: FEVER Last Admin: 05/13/17 16:40 Dose: 650 mg Allopurinol (Zyloprim Tab*) 100 mg PO QAM [facility] Last Admin: 05/23/17 09:40 Dose: 100 mg Amlodipine Besylate (Norvasc Tab*) 5 mg PO DAILY [facility] Last Admin: 05/23/17 09:40 Dose: 5 mg Atorvastatin Calcium (Lipitor*) 20 mg PO 1700 [facility] Last Admin: 05/22/17 16:10 Dose: 20 mg Bisacodyl (Dulcolax Supp*) 10 mg TN DAILY PRN PRN Reason: CONSTIPATION Last Admin: 05/19/17 11:07 Dose: 10 mg Docusate Sodium (Colace Cap*) 100 mg PO DAILY PRN PRN Reason: CONSTIPATION Last Admin: 05/18/17 16:48 Dose: 100 mg Heparin Sodium (Porcine) (Heparin Flush Picc/Ml/Cvc(*)) 1 - 3 ml FLUSH 0600, 1800 [facility] PRN Reason: Protocol Last Admin: 05/23/17 05:59 Dose: 1 ml Hydralazine HCl (Apresoline Iv*) 10 mg IV Q4H PRN PRN Reason: Systolic >170 Last Admin: 05/22/17 16:00 Dose: 10 mg Cefazolin Sodium 2 gm/ Sodium (Chloride) 20 mls @ 60 mls/hr IVPB 0100,0900, 1700 [facility] Last Admin: 05/23/17 09:39 Dose: 60 mls/hr Magnesium Hydroxide (Milk Of Magnesia Liq*) 30 ml PO Q4H PRN PRN Reason: CONSTIPATION Last Admin: 05/19/17 11:05 Dose: 30 ml Magnesium Oxide (Magox 400 Tab*) 400 mg PO DAILY [facility] Last Admin: 05/23/17 09:40 Dose: 400 mg Multivitamins (Theragran W/Minerals Liq*) 15 ml PO DAILY [facility] Last Admin: 05/23/17 09:40 Dose: 15 ml Nebivolol (Bystolic Tab (Nf)) 10 mg PO QAM [facility] Last Admin: 05/23/17 09:39 Dose: 10 mg Ondansetron HCl (Zofran Inj*) 4 mg IV Q6H PRN PRN Reason: NAUSEA/VOMITING Last Admin: 05/16/17 09:31 Dose: 4 mg Polyethylene Glycol/Electrolytes (Miralax*) 17 gm PO DAILY [facility] Last Admin: 05/23/17 09:48 Dose: Not Given Polyvinyl Alcohol (Polyvinyl Alcohol 1.4% Opth*) 1 drop BOTH EYES Q2H PRN PRN Reason: DRY EYE Last Admin: 05/20/17 16:53 Dose: 1 drop Potassium Chloride (Klor-Con Liquid*) 20 meq PO TID [facility] Last Admin: 05/23/17 14:47 Dose: 20 meq Sodium Biphosphate/Sodium Phosphate (Fleet Enema*) 1 bottle TN DAILY PRN PRN Reason: CONSTIPATION Thiamine HCl (Vitamin B-1 Tab*) 100 mg PO DAILY [facility] Last Admin: 05/23/17 09:40 Dose: 100 mg Vital Signs - 8 hr 05/23/17 05/23/17 05/23/17 08:00 08:08 11:08 Temperature 99.0 F 98.7 F Pulse Rate 75 81 Respiratory 20 20 18 Rate Blood Pressure 141/70 163/80 (mmHg) O2 Sat by Pulse 95 95 97 Oximetry 05/23/17 05/23/17 15:14 15:22 Temperature 100.4 F Pulse Rate 75 Respiratory 24 Rate Blood Pressure 153/78 (mmHg) O2 Sat by Pulse 98 98 Oximetry Oxygen Devices in Use Now: None Appearance: older than stated age, NAD Eyes: No Scleral Icterus, PERRLA Ears/Nose/Mouth/Throat: NL Teeth, Lips, Gums, Clear Oropharnyx, Mucous Membranes Moist Neck: NL Appearance and Movements; NL JVP, Trachea Midline Respiratory: Symmetrical Chest Expansion and Respiratory Effort, Clear to Auscultation Cardiovascular: RRR Abdominal: NL Sounds; No Tenderness; No Distention, No Hepatosplenomegaly Extremities: - - right shoulder and left knee dressed this AM by ortho, back not examined. Neurological: - - AOx2 to self and hospital Result Diagrams: 05/21/17 06:06 05/23/17 06:22 Additional Lab and Data: Laboratory Results - last 24 hr 05/16/17 05/16/17 05/17/17 20:07 20:07 06:16 WBC 8.2 6.6 RBC 2.44 L 2.33 L Hgb 7.3 L 7.1 L Hct 22 L 21 L MCV 91 91 MCH 30 30 MCHC 33 33 RDW 16 H 16 H Plt Count 356 331 MPV 6.6 L 6.8 L Neut % (Auto) 70.6 Not Reportable Lymph % (Auto) 11.5 L Not Reportable Grainger % (Auto) 9.3 H Not Reportable Eos % (Auto) 7.6 H Not Reportable Baso % (Auto) 1.0 Not Reportable Absolute Neuts (auto) 5.8 4.3 Absolute Lymphs (auto) 0.9 L 0.9 L Absolute Monos (auto) 0.8 0.7 Absolute Eos (auto) 0.6 0.6 Absolute Basos (auto) 0.1 0 Absolute Nucleated RBC 0 0 Immature Gran % 5 Neutrophils % 72 Lymphocytes % 11 L Monocytes % 8 H Eosinophils % 4 Basophils % 0 Metamyelocytes % 1 Myelocytes % 4 H Nucleated RBC % 0 0 Abs Neuts (Manual) 4.8 Abs Lymphs (Manual) 0.7 L Abs Monocytes (Manual) 0.5 Absolute Eos (Manual) 0.3 Abs Basophils (Manual) 0 Normal RBC Morphology Normal Sodium 139 Potassium 4.0 Chloride 106 Carbon Dioxide 24 Anion Gap 9 BUN 11 Creatinine 0.94 Est GFR ( Amer) 100.9 Est GFR (Non-Af Amer) 78.4 BUN/Creatinine Ratio 11.7 Glucose 82 Calcium 7.7 L Magnesium 1.8 L C-Reactive Protein 05/17/17 06:19 WBC RBC Hgb Hct MCV MCH MCHC RDW Plt Count MPV Neut % (Auto) Lymph % (Auto) Grainger % (Auto) Eos % (Auto) Baso % (Auto) Absolute Neuts (auto) Absolute Lymphs (auto) Absolute Monos (auto) Absolute Eos (auto) Absolute Basos (auto) Absolute Nucleated RBC Immature Gran % Neutrophils % Lymphocytes % Monocytes % Eosinophils % Basophils % Metamyelocytes % Myelocytes % Nucleated RBC % Abs Neuts (Manual) Abs Lymphs (Manual) Abs Monocytes (Manual) Absolute Eos (Manual) Abs Basophils (Manual) Normal RBC Morphology Sodium 140 Potassium 3.4 L Chloride 106 Carbon Dioxide 24 Anion Gap 10 BUN 11 Creatinine 0.89 Est GFR ( Amer) 107.5 Est GFR (Non-Af Amer) 83.6 BUN/Creatinine Ratio 12.4 Glucose 69 L Calcium 7.8 L Magnesium 1.7 L C-Reactive Protein 113.15 H Microbiology and Other Data: Microbiology 04/23/17 10:30 Misc Source (See Comment) - Other Fungal Culture - Preliminary 05/14/17 14:30 Misc Fluid (See Comment) - Abscess Gram Stain - Final 05/14/17 14:30 Misc Fluid (See Comment) - Abscess Body Fluid Culture - Preliminary No Growth Day 2 05/14/17 14:30 Misc Fluid (See Comment) - Abscess Skin and Soft Tissue MRSA/ MSSA (PCR - Final Mrsa Negative S.aureus Positive 05/12/17 01:30 Blood Venous Aerobic Blood Culture - Final No Growth Day 5 05/12/17 01:30 Blood Venous Anaerobic Blood Culture - Final No Growth Day 5 05/12/17 01:30 Blood Venous Aerobic Blood Culture - Final No Growth Day 5 05/12/17 01:30 Blood Venous Anaerobic Blood Culture - Final No Growth Day 5 05/12/17 00:48 Blood Venous Aerobic Blood Culture - Final No Growth Day 5 05/12/17 00:48 Blood Venous Anaerobic Blood Culture - Final No Growth Day 5 05/09/17 17:00 Blood Venous Aerobic Blood Culture - Final No Growth Day 5 05/09/17 17:00 Blood Venous Anaerobic Blood Culture - Final No Growth Day 5 05/09/17 17:00 Blood Venous Aerobic Blood Culture - Final No Growth Day 5 05/09/17 17:00 Blood Venous Anaerobic Blood Culture - Final No Growth Day 5 05/08/17 19:15 Joint Fluid(Synovial) Gram Stain - Final 05/08/17 19:15 Joint Fluid(Synovial) Body Fluid Culture - Final No Growth Day 4 05/08/17 19:15 Joint Fluid(Synovial) Skin and Soft Tissue MRSA/MSSA (PCR - Final Mrsa Negative S.aureus Negative 05/08/17 19:15 Body Fluid Gram Stain - Final 05/08/17 19:15 Body Fluid Body Fluid Culture - Final No Growth Day 4 05/08/17 19:15 Body Fluid Skin and Soft Tissue MRSA/MSSA (PCR - Final Mrsa Negative S.aureus Positive 04/27/17 08:00 Blood Venous Aerobic Blood Culture - Final No Growth Day 5 04/27/17 08:00 Blood Venous Anaerobic Blood Culture - Final No Growth Day 5 04/27/17 06:10 Blood Venous Aerobic Blood Culture - Final Staphylococcus Epidermidis 04/27/17 06:10 Blood Venous Anaerobic Blood Culture - Final No Growth Day 5 04/27/17 06:10 Blood Venous Blood MRSA/MSSA (PCR) - Final Mrsa Negative S.aureus Negative 04/26/17 21:00 Wound - Wound Anaerobic Culture - Final 04/26/17 21:00 Wound - Wound Skin and Soft Tissue MRSA/MSSA (PCR - Final Mrsa Negative S.aureus Positive 04/26/17 21:00 Wound - Wound Gram Stain - Final 04/26/17 21:00 Wound - Wound Wound Culture - Final Staphylococcus Aureus 04/23/17 15:53 Wound - Knee Left Anaerobic Culture - Final 04/23/17 15:53 Wound - Knee Left Skin and Soft Tissue MRSA/MSSA (PCR - Final Mrsa Negative S.aureus Positive 04/23/17 15:53 Wound - Knee Left Gram Stain - Final 04/23/17 15:53 Wound - Knee Left Wound Culture - Final Staphylococcus Aureus 04/23/17 10:30 Joint Fluid(Synovial) - Knee Left Gram Stain - Final 04/23/17 10:30 Joint Fluid(Synovial) - Knee Left Body Fluid Culture - Final Staphylococcus Aureus 04/23/17 10:30 Joint Fluid(Synovial) - Knee Left Skin and Soft Tissue MRSA/ MSSA (PCR - Final Mrsa Negative S.aureus Positive 04/22/17 16:56 Wound - Abscess Anaerobic Culture - Final 04/22/17 16:56 Wound - Abscess Skin and Soft Tissue MRSA/MSSA (PCR - Final Mrsa Negative S.aureus Positive 04/22/17 16:56 Wound - Abscess Gram Stain - Final 04/22/17 16:56 Wound - Abscess Wound Culture - Final Staphylococcus Aureus 04/22/17 15:00 Wound - Other Anaerobic Culture - Final 04/22/17 15:00 Misc Source (See Comment) - Other Skin and Soft Tissue MRSA/ MSSA (PCR - Final Mrsa Negative S.aureus Positive 04/22/17 15:00 Misc Source (See Comment) - Other Gram Stain - Final 04/22/17 15:00 Misc Source (See Comment) - Other Wound Culture - Final Staphylococcus Aureus 04/21/17 05:40 Blood Venous Aerobic Blood Culture - Final Staphylococcus Aureus 04/21/17 05:40 Blood Venous Anaerobic Blood Culture - Final Staphylococcus Aureus 04/21/17 05:40 Blood Venous Blood MRSA/MSSA (PCR) - Final Mrsa Negative S.aureus Positive 04/21/17 04:40 Blood Venous Aerobic Blood Culture - Final Staphylococcus Aureus 04/21/17 04:40 Blood Venous Anaerobic Blood Culture - Final Staphylococcus Aureus 04/21/17 04:40 Blood Venous Blood MRSA/MSSA (PCR) - Final Mrsa Negative S.aureus Positive 04/22/17 06:20 Nasal Nasal Screen MRSA (PCR)(KEEGAN) - Final Mrsa Not Detected Assess/Plan/Problems-Billing Mr Bonilla is a 76 yo M with h/o HTN, multiple joint replacements, GI bleed (and partial colon resection due to bleed) who presented to the ER with c/o fever and severe back pain and was ultimately found to have a very large epidural abscess/septic joints, R septic shoulder, L septic knee, right psoas abscess s/ p drainage in the setting of MSSA bacteremia (presumably from IV placed in ED at previous visit) with stay notable for delirium - Patient Problems (1) Encephalopathy Comment: Acute toxic metabolic Suspect delerium in setting of serious illness and prolonged hospital stay (2) Epidural abscess Comment: The patient presented with a very large epidural abscess with associated septic arthristis He underwent multilevel skip laminectomies from C6 -7- L5 on 04/22/17. Continue rifampin and ancef per Dr. Franklin. (3) MSSA bacteremia Comment: BC negative since 05/09/17. Continue rifampin and ancef per Dr. Franklin. He will need terminal superintendent IV Abx and then life long oral Abx. (4) Septic arthritis of knee, left Comment: The patient is s/p washout/debridement and liner exchange of the left knee total arthroplasty 04/23/17, Left knee aspiration on 05/08/17 and repeat washout 05/21 Cultures negative from last washouts Continue ancef and rifampin (5) Septic arthritis of shoulder, right Comment: The patient is s/p washout/debridement of R shoulder 04/26/17 and washout 05/21 Cultures negative from last washouts Continue ancef and rifampin. (6) HTN (hypertension) Comment: c/w nebivolol 10mg daily and amlodipine 5mg daily. Slightly high while acutely ill. (7) DVT prophylaxis Comment: SQ heparin Status and Disposition: medicine inpatient.
[2017-05-23] MEDS: Atorvastatin* 20 MG TAB PO SCH (17:02)
[2017-05-24] MEDS: NS 0.9% IVPB SCH ×3 (00:54→18:58)
[2017-05-24] MEDS: CEFAZOLIN IVPB SCH ×3 (00:54→18:58)
--- NOTE | 2017-05-24 04:41 | OP ---
DATE OF OPERATION: 05/21/17 - ROOM #417 DATE OF : 42 NOTE: This is the second of two operative notes being dictated for the same procedure on 05/21/17. SURGEON: Doc Galan MD [employer]IC: DEANDRE Luna. Physician regulatory assistant was required for the length of the procedure for positioning, instrumentation assistance, and closure. ANESTHESIOLOGIST: Dr. Sandeep Mckee. ANESTHESIA: General anesthesia, local anesthesia with approximately 10 cc of 0.5% Marcaine. PRE-OP DIAGNOSES: 1. Infection, left knee. 2. History of left total knee arthroplasty, distant past. 3. Status post open irrigation and debridement, exchange of liner and ostectomy , left lateral patella, left knee done on 04/23/17. POST-OP DIAGNOSES: 1. Infection, left knee. 2. History of left total knee arthroplasty, distant past. 3. Status post open irrigation and debridement exchange of liner and ostectomy left lateral patella left knee done on 04/23/17. OPERATIVE PROCEDURE: 1. Left knee arthroscopic irrigation and debridement 3. Left knee arthroscopic synovectomy. IV FLUIDS: 1700 cc of IV fluids for both parts of this operation. ANTIBIOTICS: 2 g Ancef IV. SPECIMENS: Anaerobic and aerobic culture swabs. IMPLANTS: None. TOURNIQUET TIME: 37 minutes. [id number]-[id number] TIME OF THE KNEE COMPONENT TO THIS PROCEDURE: 37 minutes. COMPLICATIONS: None. ESTIMATED BLOOD LOSS: Minimal. INDICATIONS FOR PROCEDURE: The patient is a 76-year-old man with a recent hospitalization for an epidural abscess, treated with an irrigation and debridement from cervical to lumbar spine, encephalopathy, as well as right shoulder and left knee joint infections. I had irrigated and debrided the left knee once prior, on 04/23/17. This was an open irrigation and debridement with exchange of polyethylene liner. Postoperatively, the patient has been on IV antibiotics. His white blood cell count and left shift have normalized, but his C-reactive protein has continued to be very elevated. As the patient has been encephalopathic, he has been difficult to determine how painful the left knee has been and he has been resistant to moving the left knee much on exam. For much of the last month, while I have been able to get 0 to 80 to 0 to 90 degrees of flexion occasionally , my physician assistants often times have only been able to move the knee from 0 to 30 degrees of flexion. There has been some concern about persistent infection in the joints. Prior aspiration was negative for Gram stain and culture in the left knee. The patient was brought to the operating room today for a repeat irrigation and debridement, both the right shoulder and the left knee. Right shoulder note has been dictated separately. DESCRIPTION OF PROCEDURE: Preoperatively, the patient's and healthcare proxy signed a written consent. Correct limb and joint were marked in preoperative holding. The patient was taken back to the operating room and placed supine on operating room table. He was intubated. The shoulder part of the procedure was performed first. The patient was then placed supine. Tourniquet was placed around the left proximal thigh. A lateral post was applied to the table as was a foot bump. The left lower extremity was prepped with chlorhexidine and then ChloraPrep. Draping. Surgical time-out was performed. Esmarch was applied and the tourniquet was elevated to 300 mmHg. An anterolateral knee arthroscopy portal was established using standard technique. Visualization was somewhat limited, but I was able to visualize into the suprapatellar pouch. I then established a proximal medial portal. There was some fibrous tissue about the joint and some synovitis and this was debrided , starting in the suprapatellar pouch. It should be noted that when anterolateral portal was first established, no fluid emanated. Once a small amount of fluid had been placed through the knee, culture swabs were applied to that exiting fluid from the joint. However, there was no joint effusion present to swab without some irrigant first. Using an arthroscopic shaver, I debrided some synovium in the suprapatellar pouch. I then visualized through the proximal medial portal and debrided from a newly established proximal lateral portal and from the anterolateral portal. I next debrided some tissue deep to the patellar tendon that was clearly causing some tightness about the anterior aspect of the knee. This did allow me to visualize well all the hardware. Some fibrous tissue covering the polyethylene liner and parts of the metal were debrided with an arthroscopic shaver. I have later made an anteromedial portal as well to view and work through. Using the arthroscopic shaver, I continued to debride synovitic tissue including in the box in the central part of the femoral component and off the surface of all components. I confirmed that the polyethylene liner was positioned nicely in the tibial baseplate. I allowed a total of 15 L to move through the left knee. Removed instruments and fluids. Closed skin incisions with [id number] stitches using nylon 4.0 suture. Some local anesthetic, approximately 10 cc was infused about the skin incisions. 4 x 4s, ABD, sterile Webril, Michael bandage from foot to thigh. Tourniquet was dropped. The patient was awakened, extubated and transferred to the PACU. DISPOSITION: The patient will be returned to the hospitalist service, restarted on IV antibiotics. His Gram stain and cultures will be followed. [id number]/[id number] #: [id number] JOCELYN
--- NOTE | 2017-05-24 04:41 | OP ---
DATE OF OPERATION: 05/21/17 - ROOM #[id number] DATE OF : 42 NOTE: I will dictate separately the two parts of the procedure performed today as we prepped and draped and did a separate surgical time-out for each body part operated on. SURGEON: Doc Galan MD ADMISSIONS NURSE: DEANDRE Coates. A physician office assistant receptionist was required for the length of the procedure for positioning, instrumentation, and in assistance with closure. ANESTHESIOLOGIST: Dr. Sandeep Mckee. ANESTHESIA: General anesthesia. PRE-OP DIAGNOSES: 1. Right shoulder infection. 2. Right shoulder rotator cuff tendon tears, biceps tendon tear, glenohumeral joint arthritis. 3. Status post prior irrigation and debridement, arthroscopic, 04/26/2017. POST-OP DIAGNOSES: 1. Right shoulder infection. 2. Right shoulder rotator cuff tendon tears, biceps tendon tear, glenohumeral joint arthritis. 3. Status post prior irrigation and debridement, arthroscopic, 04/26/2017. OPERATIVE PROCEDURE: 1. Right shoulder arthroscopic irrigation and debridement. 2. Complete synovectomy, right glenohumeral joint and subacromial space. IV FLUID: 1700 cc over the course of this and the knee part of the procedure. ANTIBIOTICS: 2 g Ancef IV. SPECIMEN: Aerobic and anaerobic culture swabs x2 were sent with fluid from the glenohumeral joint, right. COMPLICATIONS: None. ESTIMATED BLOOD LOSS: Minimal. IMPLANTS: One AREN drain was placed in the subacromial space and a drain stitch was placed. [id number] TIME: Unavailable for just the shoulder component of procedure. ARTHROSCOPIC FLUID IRRIGANT: 9 L in the glenohumeral joint, 3 L in the subacromial space. INDICATIONS FOR PROCEDURE: The patient is a 76-year-old man, with a recent history of an epidural abscess from the cervical to thoracic spine, treated with irrigation and debridement by my Neurosurgery colleague, Dr. Allison Melendrez. The patient subsequently had joint infections detected and had a irrigation and debridement of the left knee on April 18 and an irrigation debridement to the right shoulder on April 21. No clear source of the patient's initial infection, presumed to be the epidural abscess infection. The patient has been treated with IV antibiotics. While his white blood cell count and neutrophil left shift have normalized, the C-reactive protein has continued to be elevated. His right shoulder has been limited in its passive range of motion by pain. Unclear what extent of that that might be secondary to rotator cuff or glenohumeral joint arthritis pathology versus any residual infection. Because of the patient's poor mental status, with encephalopathy, he has not been able to provide a good history or physical exam indicating the status of his right shoulder joint infection. Given the lack of improvement in range of motion of the right shoulder without pain and the persistence of the CRP elevation, I recently performed an aspiration of the right shoulder. A PCR test revealed MSSA, although the cultures did not grow any organisms. After speaking with the Infectious Disease and Hospitalist Services, I decided to proceed with a second irrigation and debridement of the right shoulder. All were in agreement. DESCRIPTION OF PROCEDURE: Preoperatively, I had obtained a written consent from the patient's and healthcare proxy. I marked the appropriate joint with my initials in preoperative holding. The patient was taken to the operating room and placed supine on operating room table. He was sedated and general anesthesia was applied. The patient was turned into the lateral decubitus position. Axillary roll. All bony prominences were padded. Beanbag was hardened. Longitudinal traction, 15 pounds, appropriate forward flexion and abduction. The right shoulder was prepped with ChloraPrep and then draped. Surgical time-out was performed. Per my standard technique, I used a spinal needle and entered the glenohumeral joint from posterior. Significant fluid started emanating from the spinal needle, indicating increased fluid in the glenohumeral joint. This was of cloudy murky darkened yellow color concerning for infection. Per health information tech, it had a maloderous smell. It was not luis carlos purulence as had been the case at the time of the first shoulder surgical irrigation and debridement. I obtained aerobic and anaerobic swabs. I then established my posterior glenohumeral joint portal with a trocar on a cannula. More of this murky cloudy fluid emanated. I obtained a second set of cultures. I started my diagnostic arthroscopy. There was some fibrous tissue between the glenoid and the humeral head. From within the glenohumeral joint the amount of glenohumeral joint arthritis, thinning of articular cartilage looked essentially the same as at the last operation. Full-thickness subscapularis tendon tear and high-grade partial-thickness supra and infraspinatus tears were visible. I entered a shaver after having made an anterior glenohumeral joint portal under direct visualization. I debrided fibrous tissue throughout the glenohumeral joint. I worked from both the anterior and posterior portal. I removed excess synovium. No clear focus of indolent infection was encountered. I established a second anterior glenohumeral joint portal and placed an out- flowing cannula in that location. I placed 9 L of fluid per recommendations, through the glenohumeral joint. I next proceeded to the subacromial space. I entered it from posterior and anterior. There was significant synovitis in the subacromial space. The gutters could not even be visualized at first. There was a full-thickness tearing to the supra and infraspinatus that had not been appreciated from within the glenohumeral joint. Perhaps, there were few wisps of tissue still intact that prevented it from being visualized a split thickness from within the joint. I made a lateral subacromial portal and I debrided using an arthroscopic shaver out of the bursitis about the subacromial space. I infused an additional 3 L of subacromial space. I removed all instruments and placed a AREN drain in the subacromial space. I sutured it into the skin with a nylon 4-0 suture. The skin incisions were closed with [id number] stitches using nylon 4-0 suture. 4 x 4's followed by ABDs followed by foam tape applied to the right shoulder. The drapes were taken down. The patient was then converted to supine to start the second part of the procedure that I will dictate separately. DISPOSITION: At the end of the shoulder and knee procedure, the patient was to be returned to the floor and returned to the hospitalist service. He was to continue IV antibiotics and would continue to be followed by all parties. The gram stain and culture from the shoulder and knee will be followed up upon. Anesthesia had a concern at the start of the procedure regarding the PICC line not working. That was going to be addressed in the PACU with regards to a thrombolytic of some sort being infused into the PICC line. [id number]/[facility] #: [id number] JOCELYN
[2017-05-24 07:26] LABS: ABS Basophils 0 10^3/ul (0-0.2); ABS Eosinophils 0.2 10^3/ul (0-0.6); ABS Lymphocytes 0.9 10^3/ul (1.0-4.8); ABS Monocytes 0.7 10^3/ul (0-0.8); ABS Neutrophils 4.4 10^3/ul (1.5-7.7); ABS Nucleated RBC 0 10^3/ul; Eosinophil % 3.6 % (0-6); Hematocrit 23 % (42-52); Hemoglobin 7.7 g/dl (14.0-18.0); Lymphocyte % 14.2 % (25-47); Mean Corpuscular HGB Conc 33 g/dl (31-36); Mean Corpuscular Hemoglobin 29 pg (27-31); Mean Corpuscular Volume 88 fL (80-94); Mean Platelet Volume 6.7 um3 (7.4-10.4); Nucleated Red Blood Cells % 0; Platelet Count 238 10^3/ul (150-450); Red Blood Count 2.62 10^6/ul (4.0-5.4); Red Cell Distribution Width 16 % (10.5-15); White Blood Count 6.2 10^3/ul (3.5-10.8)
[2017-05-24 07:44] LABS: EGFR Non-African American 108.4 (>60)
--- NOTE | 2017-05-24 09:27 | PN ---
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 Had repeat I&D of shoulder and knee last week. He denies pain, fever, rash, or diarrhea. Objective: Vital Signs Temp 37.1 C 05/24/17 08:17 Pulse 77 05/24/17 08:17 Resp 16 05/24/17 08:17 BP 151/76 05/24/17 02:40 Pulse Ox 100 05/24/17 08:17 Intake & Output 05/23/17 05/24/17 05/24/17 18:59 06:59 18:59 Intake Total 290 50 Output Total 0 0 Balance 290 50 Intake: IV Fluids 20 30 ABX - CEFAZOLIN 20 NS (0.9%) 30 IVPB 20 ABX - CEFAZOLIN 20 Oral 270 0 Output: Urine 0 0 Other: Estimated Void Medium # Bowel Movements 3 0 Estimated Stool Amount Small # Voids 1 Gen:no distress Neuro: awake, alert, moves both legs HEENT:PERRL, MMD Heart:RRR no murmur Lungs:clear to auscultation Abd:+ BS NTND soft Skin: no rash; spine incision intact MSK: L knee mild edema, incision intact Assessment: 1. MSSA epidural abscess s/p I&D; psoas abscess s/p IR drain 05/14 2. 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 MSSA septic right shoulder s/p I&D x2 4. presence bilateral hip arthroplasties Plan: 1. ancef/rifampin day followed by long term care pharmacist oral antibiotics; weekly cbc, cmp, crp 25 minutes floor time >50% face to face discussing antibiotics and rehab
[2017-05-24] MEDS: Multivitamins ADULT w/MIN LIQ* 15 ML UDC PO SCH (09:57)
[2017-05-24] MEDS: Thiamine TAB* 100 MG TAB PO SCH (09:58)
[2017-05-24] MEDS: Allopurinol TAB* 100 MG PO SCH (09:59)
[2017-05-24] MEDS: amLODIPine TAB* 5 MG PO SCH (10:00)
[2017-05-24] MEDS: Magnesium Oxide TAB* 400 MG PO SCH (10:00)
[2017-05-24] MEDS: CMCS: Nebivolol TAB (NF) 2.5 MG TAB PO SCH (10:01)
[2017-05-24] MEDS: Polyethylene Glycol 3350* 17 GM PACKET PO SCH (10:04)
[2017-05-24] MEDS: Potassium Chloride LIQUID* 20 MEQ PACKET PO SCH ×3 (10:04→22:24)
[2017-05-24] MEDS: Acetaminophen TAB* 325 MG PO PRN (11:24)
--- NOTE | 2017-05-24 13:58 | PN ---
Subjective Date of Service: 05/24/17 Interval History: Patient denies pain. He did c/o 1 loose stool today but staff reports he had no BM today. Objective Active Medications: Acetaminophen (Tylenol Tab*) 650 mg PO Q4H PRN PRN Reason: FEVER Last Admin: 05/24/17 11:24 Dose: 650 mg Allopurinol (Zyloprim Tab*) 100 mg PO QAM [facility] Last Admin: 05/24/17 09:59 Dose: 100 mg Amlodipine Besylate (Norvasc Tab*) 5 mg PO DAILY [facility] Last Admin: 05/24/17 10:00 Dose: 5 mg Atorvastatin Calcium (Lipitor*) 20 mg PO 1700 [facility] Last Admin: 05/23/17 17:02 Dose: 20 mg Bisacodyl (Dulcolax Supp*) 10 mg ME DAILY PRN PRN Reason: CONSTIPATION Last Admin: 05/19/17 11:07 Dose: 10 mg Docusate Sodium (Colace Cap*) 100 mg PO DAILY PRN PRN Reason: CONSTIPATION Last Admin: 05/18/17 16:48 Dose: 100 mg Heparin Sodium (Porcine) (Heparin Flush Picc/Ml/Cvc(*)) 1 - 3 ml FLUSH 0600, 1800 [facility] PRN Reason: Protocol Last Admin: 05/24/17 11:23 Dose: 1 ml Hydralazine HCl (Apresoline Iv*) 10 mg IV Q4H PRN PRN Reason: Systolic >170 Last Admin: 05/22/17 16:00 Dose: 10 mg Cefazolin Sodium 2 gm/ Sodium (Chloride) 20 mls @ 60 mls/hr IVPB 0100,0900, 1700 [facility] Last Admin: 05/24/17 09:50 Dose: 60 mls/hr Magnesium Hydroxide (Milk Of Magnesia Liq*) 30 ml PO Q4H PRN PRN Reason: CONSTIPATION Last Admin: 05/19/17 11:05 Dose: 30 ml Magnesium Oxide (Magox 400 Tab*) 400 mg PO DAILY [facility] Last Admin: 05/24/17 10:00 Dose: 400 mg Multivitamins (Theragran W/Minerals Liq*) 15 ml PO DAILY [facility] Last Admin: 05/24/17 09:57 Dose: 15 ml Nebivolol (Bystolic Tab (Nf)) 10 mg PO QAM [facility] Last Admin: 05/24/17 10:01 Dose: 10 mg Ondansetron HCl (Zofran Inj*) 4 mg IV Q6H PRN PRN Reason: NAUSEA/VOMITING Last Admin: 05/16/17 09:31 Dose: 4 mg Polyethylene Glycol/Electrolytes (Miralax*) 17 gm PO DAILY [facility] Last Admin: 05/24/17 10:04 Dose: 17 gm Polyvinyl Alcohol (Polyvinyl Alcohol 1.4% Opth*) 1 drop BOTH EYES Q2H PRN PRN Reason: DRY EYE Last Admin: 05/20/17 16:53 Dose: 1 drop Potassium Chloride (Klor-Con Liquid*) 20 meq PO TID [facility] Last Admin: 05/24/17 10:04 Dose: 20 meq Rifampin (Rifampin Cap*) 300 mg PO BID [facility] Sodium Biphosphate/Sodium Phosphate (Fleet Enema*) 1 bottle ME DAILY PRN PRN Reason: CONSTIPATION Thiamine HCl (Vitamin B-1 Tab*) 100 mg PO DAILY [facility] Last Admin: 05/24/17 09:58 Dose: 100 mg Vital Signs - 8 hr 05/24/17 05/24/17 05/24/17 08:00 08:17 13:41 Temperature 98.7 F Pulse Rate 77 74 Respiratory 16 16 16 Rate Blood Pressure 144/79 (mmHg) O2 Sat by Pulse 100 100 97 Oximetry Oxygen Devices in Use Now: None, Nasal Cannula Appearance: Alert, partly up in bed. Eyes: No Scleral Icterus Respiratory: Symmetrical Chest Expansion and Respiratory Effort, Clear to Auscultation, Clear to Percussion Cardiovascular: NL Sounds; No Murmurs; No JVD, RRR, No Edema, - Extremities: No Edema, No Clubbing, Cyanosis, - Skin: No Rash or Ulcers, No Nodules or Sclerosis, - Neurological: NL Sensation - Disoriented, thought it was November, could not say that he was in a hospital. No tremor. Result Diagrams: 05/24/17 07:15 05/24/17 07:15 Additional Lab and Data: Laboratory Results - last 24 hr 05/16/17 05/16/17 05/17/17 20:07 20:07 06:16 WBC 8.2 6.6 RBC 2.44 L 2.33 L Hgb 7.3 L 7.1 L Hct 22 L 21 L MCV 91 91 MCH 30 30 MCHC 33 33 RDW 16 H 16 H Plt Count 356 331 MPV 6.6 L 6.8 L Neut % (Auto) 70.6 Not Reportable Lymph % (Auto) 11.5 L Not Reportable [place] % (Auto) 9.3 H Not Reportable Eos % (Auto) 7.6 H Not Reportable Baso % (Auto) 1.0 Not Reportable Absolute Neuts (auto) 5.8 4.3 Absolute Lymphs (auto) 0.9 L 0.9 L Absolute Monos (auto) 0.8 0.7 Absolute Eos (auto) 0.6 0.6 Absolute Basos (auto) 0.1 0 Absolute Nucleated RBC 0 0 Immature Gran % 5 Neutrophils % 72 Lymphocytes % 11 L Monocytes % 8 H Eosinophils % 4 Basophils % 0 Metamyelocytes % 1 Myelocytes % 4 H Nucleated RBC % 0 0 Abs Neuts (Manual) 4.8 Abs Lymphs (Manual) 0.7 L Abs Monocytes (Manual) 0.5 Absolute Eos (Manual) 0.3 Abs Basophils (Manual) 0 Normal RBC Morphology Normal Sodium 139 Potassium 4.0 Chloride 106 Carbon Dioxide 24 Anion Gap 9 BUN 11 Creatinine 0.94 Est GFR ( Amer) 100.9 Est GFR (Non-Af Amer) 78.4 BUN/Creatinine Ratio 11.7 Glucose 82 Calcium 7.7 L Magnesium 1.8 L C-Reactive Protein 05/17/17 06:19 WBC RBC Hgb Hct MCV MCH MCHC RDW Plt Count MPV Neut % (Auto) Lymph % (Auto) [place] % (Auto) Eos % (Auto) Baso % (Auto) Absolute Neuts (auto) Absolute Lymphs (auto) Absolute Monos (auto) Absolute Eos (auto) Absolute Basos (auto) Absolute Nucleated RBC Immature Gran % Neutrophils % Lymphocytes % Monocytes % Eosinophils % Basophils % Metamyelocytes % Myelocytes % Nucleated RBC % Abs Neuts (Manual) Abs Lymphs (Manual) Abs Monocytes (Manual) Absolute Eos (Manual) Abs Basophils (Manual) Normal RBC Morphology Sodium 140 Potassium 3.4 L Chloride 106 Carbon Dioxide 24 Anion Gap 10 BUN 11 Creatinine 0.89 Est GFR ( Amer) 107.5 Est GFR (Non-Af Amer) 83.6 BUN/Creatinine Ratio 12.4 Glucose 69 L Calcium 7.8 L Magnesium 1.7 L C-Reactive Protein 113.15 H Microbiology and Other Data: Microbiology 04/23/17 10:30 Misc Source (See Comment) - Other Fungal Culture - Preliminary 05/14/17 14:30 Misc Fluid (See Comment) - Abscess Gram Stain - Final 05/14/17 14:30 Misc Fluid (See Comment) - Abscess Body Fluid Culture - Preliminary No Growth Day 2 05/14/17 14:30 Misc Fluid (See Comment) - Abscess Skin and Soft Tissue MRSA/ MSSA (PCR - Final Mrsa Negative S.aureus Positive 05/12/17 01:30 Blood Venous Aerobic Blood Culture - Final No Growth Day 5 05/12/17 01:30 Blood Venous Anaerobic Blood Culture - Final No Growth Day 5 05/12/17 01:30 Blood Venous Aerobic Blood Culture - Final No Growth Day 5 05/12/17 01:30 Blood Venous Anaerobic Blood Culture - Final No Growth Day 5 05/12/17 00:48 Blood Venous Aerobic Blood Culture - Final No Growth Day 5 05/12/17 00:48 Blood Venous Anaerobic Blood Culture - Final No Growth Day 5 05/09/17 17:00 Blood Venous Aerobic Blood Culture - Final No Growth Day 5 05/09/17 17:00 Blood Venous Anaerobic Blood Culture - Final No Growth Day 5 05/09/17 17:00 Blood Venous Aerobic Blood Culture - Final No Growth Day 5 05/09/17 17:00 Blood Venous Anaerobic Blood Culture - Final No Growth Day 5 05/08/17 19:15 Joint Fluid(Synovial) Gram Stain - Final 05/08/17 19:15 Joint Fluid(Synovial) Body Fluid Culture - Final No Growth Day 4 05/08/17 19:15 Joint Fluid(Synovial) Skin and Soft Tissue MRSA/MSSA (PCR - Final Mrsa Negative S.aureus Negative 05/08/17 19:15 Body Fluid Gram Stain - Final 05/08/17 19:15 Body Fluid Body Fluid Culture - Final No Growth Day 4 05/08/17 19:15 Body Fluid Skin and Soft Tissue MRSA/MSSA (PCR - Final Mrsa Negative S.aureus Positive 04/27/17 08:00 Blood Venous Aerobic Blood Culture - Final No Growth Day 5 04/27/17 08:00 Blood Venous Anaerobic Blood Culture - Final No Growth Day 5 04/27/17 06:10 Blood Venous Aerobic Blood Culture - Final Staphylococcus Epidermidis 04/27/17 06:10 Blood Venous Anaerobic Blood Culture - Final No Growth Day 5 04/27/17 06:10 Blood Venous Blood MRSA/MSSA (PCR) - Final Mrsa Negative S.aureus Negative 04/26/17 21:00 Wound - Wound Anaerobic Culture - Final 04/26/17 21:00 Wound - Wound Skin and Soft Tissue MRSA/MSSA (PCR - Final Mrsa Negative S.aureus Positive 04/26/17 21:00 Wound - Wound Gram Stain - Final 04/26/17 21:00 Wound - Wound Wound Culture - Final Staphylococcus Aureus 04/23/17 15:53 Wound - Knee Left Anaerobic Culture - Final 04/23/17 15:53 Wound - Knee Left Skin and Soft Tissue MRSA/MSSA (PCR - Final Mrsa Negative S.aureus Positive 04/23/17 15:53 Wound - Knee Left Gram Stain - Final 04/23/17 15:53 Wound - Knee Left Wound Culture - Final Staphylococcus Aureus 04/23/17 10:30 Joint Fluid(Synovial) - Knee Left Gram Stain - Final 04/23/17 10:30 Joint Fluid(Synovial) - Knee Left Body Fluid Culture - Final Staphylococcus Aureus 04/23/17 10:30 Joint Fluid(Synovial) - Knee Left Skin and Soft Tissue MRSA/ MSSA (PCR - Final Mrsa Negative S.aureus Positive 04/22/17 16:56 Wound - Abscess Anaerobic Culture - Final 04/22/17 16:56 Wound - Abscess Skin and Soft Tissue MRSA/MSSA (PCR - Final Mrsa Negative S.aureus Positive 04/22/17 16:56 Wound - Abscess Gram Stain - Final 04/22/17 16:56 Wound - Abscess Wound Culture - Final Staphylococcus Aureus 04/22/17 15:00 Wound - Other Anaerobic Culture - Final 04/22/17 15:00 Misc Source (See Comment) - Other Skin and Soft Tissue MRSA/ MSSA (PCR - Final Mrsa Negative S.aureus Positive 04/22/17 15:00 Misc Source (See Comment) - Other Gram Stain - Final 04/22/17 15:00 Misc Source (See Comment) - Other Wound Culture - Final Staphylococcus Aureus 04/21/17 05:40 Blood Venous Aerobic Blood Culture - Final Staphylococcus Aureus 04/21/17 05:40 Blood Venous Anaerobic Blood Culture - Final Staphylococcus Aureus 04/21/17 05:40 Blood Venous Blood MRSA/MSSA (PCR) - Final Mrsa Negative S.aureus Positive 04/21/17 04:40 Blood Venous Aerobic Blood Culture - Final Staphylococcus Aureus 04/21/17 04:40 Blood Venous Anaerobic Blood Culture - Final Staphylococcus Aureus 04/21/17 04:40 Blood Venous Blood MRSA/MSSA (PCR) - Final Mrsa Negative S.aureus Positive 04/22/17 06:20 Nasal Nasal Screen MRSA (PCR)(KEEGAN) - Final Mrsa Not Detected Assess/Plan/Problems-Billing Mr Bonilla is a 76 yo M with h/o HTN, multiple joint replacements, GI bleed (and partial colon resection due to bleed) who presented to the ER with c/o fever and severe back pain and was ultimately found to have a very large epidural abscess/septic joints, R septic shoulder, L septic knee, right psoas abscess s/ p drainage in the setting of MSSA bacteremia (presumably from IV placed in ED at previous visit) with stay notable for delirium - Patient Problems (1) Staphylococcus aureus bacteremia Current Visit: Yes Status: Resolved Code(s): R78.81 - BACTEREMIA SNOMED Code(s): 770011025 Comment: MSSA with L knee and R shoulder septic arthropathy. Continue cefazolin and rifampin. PO oxycodone PRN pain. Repeat joint fluid aspirations from R shoulder and L knee from 05/08 both no growth day 2. Psoas abcess drained 20 ml purulent material 05/14. CT with contrast showed fluid collections at T1-3, L4. T 100.4 on 05/23/17. Addon CRP 4/2. (2) HTN (hypertension) Current Visit: Yes Status: Acute Code(s): I10 - ESSENTIAL (PRIMARY) HYPERTENSION SNOMED Code(s): 29639799 Comment: Continue nebivolol 10mg daily and amlodipine 5mg daily. (3) Debility Current Visit: Yes Status: Acute Code(s): R53.81 - OTHER MALAISE SNOMED Code(s): 64529765 Comment: He will need STR. (4) Hypoalbuminemia Current Visit: Yes Status: Acute Code(s): E88.09 - OTH DISORDERS OF PLASMA- PROTEIN METABOLISM, NEC SNOMED Code(s): 276577106 Comment: Calorie counts 05/10- averaged 507 calories per day. Prealbumin 6 and albumin level 2.1 on 05/11. Repeat calorie counts. Status and Disposition: medicine inpatient.
[2017-05-24] MEDS: TPN* 24 HR with Dextrose 50% Water* 500 ML, Amino Acid Infusion 10%* 850 ML, Sterile Wa... CENTR SCH ×12 (18:58)
[2017-05-24] MEDS: Atorvastatin* 20 MG TAB PO SCH (18:58)
[2017-05-24] MEDS: RiFAMPin CAP* 300 MG CAP PO SCH (22:24)
[2017-05-25] MEDS: Acetaminophen TAB* 325 MG PO PRN (00:34)
[2017-05-25] MEDS: CEFAZOLIN IVPB SCH ×3 (01:16→18:03)
[2017-05-25] MEDS: NS 0.9% IVPB SCH ×3 (01:16→18:03)
[2017-05-25 09:07] LABS: EGFR Non-African American 110.2 (>60)
[2017-05-25] MEDS: RiFAMPin CAP* 300 MG CAP PO SCH ×2 (10:03→21:36)
[2017-05-25] MEDS: Polyethylene Glycol 3350* 17 GM PACKET PO SCH (10:03)
[2017-05-25] MEDS: Multivitamins ADULT w/MIN LIQ* 15 ML UDC PO SCH (10:03)
[2017-05-25] MEDS: Potassium Chloride LIQUID* 20 MEQ PACKET PO SCH ×3 (10:03→21:35)
[2017-05-25] MEDS: Thiamine TAB* 100 MG TAB PO SCH (10:04)
[2017-05-25] MEDS: CMCS: Nebivolol TAB (NF) 2.5 MG TAB PO SCH (10:04)
[2017-05-25] MEDS: Allopurinol TAB* 100 MG PO SCH (10:04)
[2017-05-25] MEDS: Magnesium Oxide TAB* 400 MG PO SCH (10:04)
[2017-05-25] MEDS: amLODIPine TAB* 5 MG PO SCH (10:04)
--- NOTE | 2017-05-25 11:37 | PN ---
Subjective Date of Service: 05/25/17 Interval History: No c/o. Patient may not remember his sx's. Objective Active Medications: Acetaminophen (Tylenol Tab*) 650 mg PO Q4H PRN PRN Reason: FEVER Last Admin: 05/25/17 00:34 Dose: 650 mg Allopurinol (Zyloprim Tab*) 100 mg PO QAM [facility] Last Admin: 05/25/17 10:04 Dose: 100 mg Amlodipine Besylate (Norvasc Tab*) 5 mg PO DAILY [facility] Last Admin: 05/25/17 10:04 Dose: 5 mg Atorvastatin Calcium (Lipitor*) 20 mg PO 1700 [facility] Last Admin: 05/24/17 18:58 Dose: 20 mg Bisacodyl (Dulcolax Supp*) 10 mg PA DAILY PRN PRN Reason: CONSTIPATION Last Admin: 05/19/17 11:07 Dose: 10 mg Docusate Sodium (Colace Cap*) 100 mg PO DAILY PRN PRN Reason: CONSTIPATION Last Admin: 05/18/17 16:48 Dose: 100 mg Heparin Sodium (Porcine) (Heparin Flush Picc/Ml/Cvc(*)) 1 - 3 ml FLUSH 0600, 1800 [facility] PRN Reason: Protocol Last Admin: 05/25/17 08:04 Dose: Not Given Hydralazine HCl (Apresoline Iv*) 10 mg IV Q4H PRN PRN Reason: Systolic >170 Last Admin: 05/22/17 16:00 Dose: 10 mg Cefazolin Sodium 2 gm/ Sodium (Chloride) 20 mls @ 60 mls/hr IVPB 0100,0900, 1700 [facility] Last Admin: 05/25/17 10:03 Dose: 60 mls/hr Dextrose 500 ml/ Amino Acids 850 ml/ Sterile Water 150 ml/Fat Emulsion Intravenous 250 ml/ Sodium Chloride 100 meq/Potassium Chloride 50 meq/Potassium Phosphate 15 mmole/Calcium Gluconate 15 meq/Magnesium Sulfate 10 meq/ Multivitamins 10 ml/ Trace Metals 1 ml/ Nutrition ( Parenteral) 1,850.721 mls @ 77.113 mls/hr CENTR 1700 [facility] PRN Reason: Protocol Last Admin: 05/24/17 18:58 Dose: 77.113 mls/hr Magnesium Hydroxide (Milk Of Magnesia Liq*) 30 ml PO Q4H PRN PRN Reason: CONSTIPATION Last Admin: 05/19/17 11:05 Dose: 30 ml Magnesium Oxide (Magox 400 Tab*) 400 mg PO DAILY [facility] Last Admin: 05/25/17 10:04 Dose: 400 mg Multivitamins (Theragran W/Minerals Liq*) 15 ml PO DAILY [facility] Last Admin: 05/25/17 10:03 Dose: 15 ml Nebivolol (Bystolic Tab (Nf)) 10 mg PO QAM [facility] Last Admin: 05/25/17 10:04 Dose: 10 mg Ondansetron HCl (Zofran Inj*) 4 mg IV Q6H PRN PRN Reason: NAUSEA/VOMITING Last Admin: 05/16/17 09:31 Dose: 4 mg Polyethylene Glycol/Electrolytes (Miralax*) 17 gm PO DAILY [facility] Last Admin: 05/25/17 10:03 Dose: 17 gm Polyvinyl Alcohol (Polyvinyl Alcohol 1.4% Opth*) 1 drop BOTH EYES Q2H PRN PRN Reason: DRY EYE Last Admin: 05/20/17 16:53 Dose: 1 drop Potassium Chloride (Klor-Con Liquid*) 20 meq PO TID [facility] Last Admin: 05/25/17 10:03 Dose: 20 meq Rifampin (Rifampin Cap*) 300 mg PO BID [facility] Last Admin: 05/25/17 10:03 Dose: 300 mg Sodium Biphosphate/Sodium Phosphate (Fleet Enema*) 1 bottle PA DAILY PRN PRN Reason: CONSTIPATION Thiamine HCl (Vitamin B-1 Tab*) 100 mg PO DAILY [facility] Last Admin: 05/25/17 10:04 Dose: 100 mg Vital Signs - 8 hr 05/25/17 05/25/17 05/25/17 07:07 07:15 08:00 Temperature 99.6 F Pulse Rate 86 Respiratory 18 18 Rate Blood Pressure 144/110 (mmHg) O2 Sat by Pulse 97 97 Oximetry 05/25/17 08:53 Temperature Pulse Rate Respiratory Rate Blood Pressure (mmHg) O2 Sat by Pulse 97 Oximetry Oxygen Devices in Use Now: Nasal Cannula Appearance: Alert, in a chair. Neutral affect. Looks comfortable. Eyes: No Scleral Icterus Extremities: No Edema, No Clubbing, Cyanosis, - Skin: No Rash or Ulcers, No Nodules or Sclerosis, - Neurological: NL Sensation - Cooperative. He can state his age correctly but many of his answers are nonsense. When asked "whre are we now" he naswers "[place]". No tremor. Result Diagrams: 05/24/17 07:15 05/25/17 06:30 Additional Lab and Data: Laboratory Results - last 24 hr 05/16/17 05/16/17 05/17/17 20:07 20:07 06:16 WBC 8.2 6.6 RBC 2.44 L 2.33 L Hgb 7.3 L 7.1 L Hct 22 L 21 L MCV 91 91 MCH 30 30 MCHC 33 33 RDW 16 H 16 H Plt Count 356 331 MPV 6.6 L 6.8 L Neut % (Auto) 70.6 Not Reportable Lymph % (Auto) 11.5 L Not Reportable [place] % (Auto) 9.3 H Not Reportable Eos % (Auto) 7.6 H Not Reportable Baso % (Auto) 1.0 Not Reportable Absolute Neuts (auto) 5.8 4.3 Absolute Lymphs (auto) 0.9 L 0.9 L Absolute Monos (auto) 0.8 0.7 Absolute Eos (auto) 0.6 0.6 Absolute Basos (auto) 0.1 0 Absolute Nucleated RBC 0 0 Immature Gran % 5 Neutrophils % 72 Lymphocytes % 11 L Monocytes % 8 H Eosinophils % 4 Basophils % 0 Metamyelocytes % 1 Myelocytes % 4 H Nucleated RBC % 0 0 Abs Neuts (Manual) 4.8 Abs Lymphs (Manual) 0.7 L Abs Monocytes (Manual) 0.5 Absolute Eos (Manual) 0.3 Abs Basophils (Manual) 0 Normal RBC Morphology Normal Sodium 139 Potassium 4.0 Chloride 106 Carbon Dioxide 24 Anion Gap 9 BUN 11 Creatinine 0.94 Est GFR ( Amer) 100.9 Est GFR (Non-Af Amer) 78.4 BUN/Creatinine Ratio 11.7 Glucose 82 Calcium 7.7 L Magnesium 1.8 L C-Reactive Protein 05/17/17 06:19 WBC RBC Hgb Hct MCV MCH MCHC RDW Plt Count MPV Neut % (Auto) Lymph % (Auto) [place] % (Auto) Eos % (Auto) Baso % (Auto) Absolute Neuts (auto) Absolute Lymphs (auto) Absolute Monos (auto) Absolute Eos (auto) Absolute Basos (auto) Absolute Nucleated RBC Immature Gran % Neutrophils % Lymphocytes % Monocytes % Eosinophils % Basophils % Metamyelocytes % Myelocytes % Nucleated RBC % Abs Neuts (Manual) Abs Lymphs (Manual) Abs Monocytes (Manual) Absolute Eos (Manual) Abs Basophils (Manual) Normal RBC Morphology Sodium 140 Potassium 3.4 L Chloride 106 Carbon Dioxide 24 Anion Gap 10 BUN 11 Creatinine 0.89 Est GFR ( Amer) 107.5 Est GFR (Non-Af Amer) 83.6 BUN/Creatinine Ratio 12.4 Glucose 69 L Calcium 7.8 L Magnesium 1.7 L C-Reactive Protein 113.15 H Microbiology and Other Data: Microbiology 04/23/17 10:30 Misc Source (See Comment) - Other Fungal Culture - Preliminary 05/14/17 14:30 Misc Fluid (See Comment) - Abscess Gram Stain - Final 05/14/17 14:30 Misc Fluid (See Comment) - Abscess Body Fluid Culture - Preliminary No Growth Day 2 05/14/17 14:30 Misc Fluid (See Comment) - Abscess Skin and Soft Tissue MRSA/ MSSA (PCR - Final Mrsa Negative S.aureus Positive 05/12/17 01:30 Blood Venous Aerobic Blood Culture - Final No Growth Day 5 05/12/17 01:30 Blood Venous Anaerobic Blood Culture - Final No Growth Day 5 05/12/17 01:30 Blood Venous Aerobic Blood Culture - Final No Growth Day 5 05/12/17 01:30 Blood Venous Anaerobic Blood Culture - Final No Growth Day 5 05/12/17 00:48 Blood Venous Aerobic Blood Culture - Final No Growth Day 5 05/12/17 00:48 Blood Venous Anaerobic Blood Culture - Final No Growth Day 5 05/09/17 17:00 Blood Venous Aerobic Blood Culture - Final No Growth Day 5 05/09/17 17:00 Blood Venous Anaerobic Blood Culture - Final No Growth Day 5 05/09/17 17:00 Blood Venous Aerobic Blood Culture - Final No Growth Day 5 05/09/17 17:00 Blood Venous Anaerobic Blood Culture - Final No Growth Day 5 05/08/17 19:15 Joint Fluid(Synovial) Gram Stain - Final 05/08/17 19:15 Joint Fluid(Synovial) Body Fluid Culture - Final No Growth Day 4 05/08/17 19:15 Joint Fluid(Synovial) Skin and Soft Tissue MRSA/MSSA (PCR - Final Mrsa Negative S.aureus Negative 05/08/17 19:15 Body Fluid Gram Stain - Final 05/08/17 19:15 Body Fluid Body Fluid Culture - Final No Growth Day 4 05/08/17 19:15 Body Fluid Skin and Soft Tissue MRSA/MSSA (PCR - Final Mrsa Negative S.aureus Positive 04/27/17 08:00 Blood Venous Aerobic Blood Culture - Final No Growth Day 5 04/27/17 08:00 Blood Venous Anaerobic Blood Culture - Final No Growth Day 5 04/27/17 06:10 Blood Venous Aerobic Blood Culture - Final Staphylococcus Epidermidis 04/27/17 06:10 Blood Venous Anaerobic Blood Culture - Final No Growth Day 5 04/27/17 06:10 Blood Venous Blood MRSA/MSSA (PCR) - Final Mrsa Negative S.aureus Negative 04/26/17 21:00 Wound - Wound Anaerobic Culture - Final 04/26/17 21:00 Wound - Wound Skin and Soft Tissue MRSA/MSSA (PCR - Final Mrsa Negative S.aureus Positive 04/26/17 21:00 Wound - Wound Gram Stain - Final 04/26/17 21:00 Wound - Wound Wound Culture - Final Staphylococcus Aureus 04/23/17 15:53 Wound - Knee Left Anaerobic Culture - Final 04/23/17 15:53 Wound - Knee Left Skin and Soft Tissue MRSA/MSSA (PCR - Final Mrsa Negative S.aureus Positive 04/23/17 15:53 Wound - Knee Left Gram Stain - Final 04/23/17 15:53 Wound - Knee Left Wound Culture - Final Staphylococcus Aureus 04/23/17 10:30 Joint Fluid(Synovial) - Knee Left Gram Stain - Final 04/23/17 10:30 Joint Fluid(Synovial) - Knee Left Body Fluid Culture - Final Staphylococcus Aureus 04/23/17 10:30 Joint Fluid(Synovial) - Knee Left Skin and Soft Tissue MRSA/ MSSA (PCR - Final Mrsa Negative S.aureus Positive 04/22/17 16:56 Wound - Abscess Anaerobic Culture - Final 04/22/17 16:56 Wound - Abscess Skin and Soft Tissue MRSA/MSSA (PCR - Final Mrsa Negative S.aureus Positive 04/22/17 16:56 Wound - Abscess Gram Stain - Final 04/22/17 16:56 Wound - Abscess Wound Culture - Final Staphylococcus Aureus 04/22/17 15:00 Wound - Other Anaerobic Culture - Final 04/22/17 15:00 Misc Source (See Comment) - Other Skin and Soft Tissue MRSA/ MSSA (PCR - Final Mrsa Negative S.aureus Positive 04/22/17 15:00 Misc Source (See Comment) - Other Gram Stain - Final 04/22/17 15:00 Misc Source (See Comment) - Other Wound Culture - Final Staphylococcus Aureus 04/21/17 05:40 Blood Venous Aerobic Blood Culture - Final Staphylococcus Aureus 04/21/17 05:40 Blood Venous Anaerobic Blood Culture - Final Staphylococcus Aureus 04/21/17 05:40 Blood Venous Blood MRSA/MSSA (PCR) - Final Mrsa Negative S.aureus Positive 04/21/17 04:40 Blood Venous Aerobic Blood Culture - Final Staphylococcus Aureus 04/21/17 04:40 Blood Venous Anaerobic Blood Culture - Final Staphylococcus Aureus 04/21/17 04:40 Blood Venous Blood MRSA/MSSA (PCR) - Final Mrsa Negative S.aureus Positive 04/22/17 06:20 Nasal Nasal Screen MRSA (PCR)(KEEGAN) - Final Mrsa Not Detected Assess/Plan/Problems-Billing Mr Bonilla is a 76 yo M with h/o HTN, multiple joint replacements, GI bleed (and partial colon resection due to bleed) who presented to the ER with c/o fever and severe back pain and was ultimately found to have a very large epidural abscess/septic joints, R septic shoulder, L septic knee, right psoas abscess s/ p drainage in the setting of MSSA bacteremia (presumably from IV placed in ED at previous visit) with stay notable for delirium - Patient Problems (1) Staphylococcus aureus bacteremia Current Visit: Yes Status: Resolved Code(s): R78.81 - BACTEREMIA SNOMED Code(s): 164613107 Comment: MSSA with L knee and R shoulder septic arthropathy. Continue cefazolin and rifampin. PO oxycodone PRN pain. Repeat joint fluid aspirations from R shoulder and L knee from 05/08 both no growth day 2. Psoas abcess drained 20 ml purulent material 05/14. CT with contrast showed fluid collections at T1-3, L4. T 100.4 on 05/23/17. CRP on 05/24 down to 74.74. (2) HTN (hypertension) Current Visit: Yes Status: Acute Code(s): I10 - ESSENTIAL (PRIMARY) HYPERTENSION SNOMED Code(s): 99459317 Comment: Continue nebivolol 10mg daily and amlodipine 5mg daily. (3) Debility Current Visit: Yes Status: Acute Code(s): R53.81 - OTHER MALAISE SNOMED Code(s): 23779461 Comment: He will need STR. (4) Hypoalbuminemia Current Visit: Yes Status: Acute Code(s): E88.09 - OTH DISORDERS OF PLASMA- PROTEIN METABOLISM, NEC SNOMED Code(s): 453575151 Comment: Calorie counts 05/10- averaged 507 calories per day. Prealbumin 6 and albumin level 2.1 on 05/11. Repeat calorie counts. TPN started 05/24. Status and Disposition: medicine inpatient.
--- NOTE | 2017-05-25 14:36 | PN ---
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 Had repeat I&D of shoulder and knee last week. He denies pain, fever, rash, or diarrhea. Objective: Vital Signs Temp 37.6 C 05/25/17 07:07 Pulse 86 05/25/17 07:07 Resp 20 05/25/17 08:00 BP 144/110 05/25/17 07:15 Pulse Ox 97 05/25/17 08:53 Intake & Output 05/24/17 05/25/17 05/25/17 18:59 06:59 18:59 Intake Total 600 884 Balance 600 884 Weight 188 lb Intake: IV Fluids 884 tpn 884 IVPB 20 ABX - CEFAZOLIN 20 Oral 580 0 Other: Estimated Void Large # Bowel Movements 1 1 Estimated Stool Amount Small Small # Voids 1 Gen:no distress Neuro: awake, Ox1 HEENT:PERRL, MMD Heart:RRR no murmur Lungs:clear to auscultation Abd:+ BS NTND soft Skin: no rash; spine incision intact Assessment: 1. MSSA epidural abscess s/p I&D; psoas abscess s/p IR drain 05/14 2. 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 MSSA septic right shoulder s/p I&D x2 4. presence bilateral hip arthroplasties 5. encephalopathy ?worse since anesthesia Plan: 1. ancef/rifampin day 3256 followed by [facility] oral antibiotics; weekly cbc, cmp, crp 2. TPN per hospitalists
[2017-05-25] MEDS ORDERED: TPN CENTRAL STANDARD BASE A CENTR SCH ×13 (17:00)
--- NOTE | 2017-05-25 17:05 | PN ---
Progress Note - Progress Note Date of Service: 05/25/17 SOAP: Subjective: []Patient seen OOB in chair with present. He feels well with no pain of right knee or left shoulder. He denies feeling of fever or chills though has had low grade temp Objective: [] Vital Signs Temp 100.4 F 05/25/17 11:43 Pulse 84 05/25/17 11:43 Resp 18 05/25/17 11:43 BP 153/91 05/25/17 11:43 Pulse Ox 98 05/25/17 11:43 Intake & Output 05/24/17 05/25/17 05/25/17 18:59 06:59 18:59 Intake Total 600 884 660 Balance 600 884 660 Weight 188 lb Intake: IV Fluids 884 tpn 884 IVPB 20 ABX - CEFAZOLIN 20 Oral 580 0 660 Other: Estimated Void Large Large # Bowel Movements 1 1 Estimated Stool Amount Small Small # Voids 1 3 General: Well appearing, NAD. Talkative with appropriate conversation and much improved ability to follow commands Right shoulder: Dressing changed. Incisions CDI without discharge. SHoulder nonerythematous and nonedeamatous. right hand with mild edema. Radial pulse 2+, sensation intact throughout RUE. Cap refill less than two seconds. ROM 90 degrees forward flexion and abduction wtih endpoints limited by pain left knee: dressing changed, incisions cdi without discharge. knee nonerythematous. extension to 0, flexion to 90 degrees endpoints limited by pain Assessment: []]s/p right shoulder and left knee I&D Plan: [ Continue ancef/rifampin per ID PT/OT Dressing changes to knee and shoulder every other day CRP trending down, continue to monitor <Elizabeth Valerio - Last Filed: 05/25/17 17:06> - Progress Note SOAP: Subjective: Correction to subjective section above that the sidedness referred to should be left knee and right shoulder. <Doc Galan - Last Filed: 05/27/17 11:14>
[2017-05-25] MEDS: Atorvastatin* 20 MG TAB PO SCH (18:03)
[2017-05-25] MEDS: TPN* 24 HR with Dextrose 50% Water* 500 ML, Amino Acid Infusion 10%* 850 ML, Sterile Wa... CENTR SCH ×12 (18:28)
[2017-05-25] MEDS ORDERED: Haloperidol INJ IV/IM* 5 MG/ML AMP IV SLOW PU PRN (21:56)
[2017-05-26] MEDS: NS 0.9% IVPB SCH ×3 (01:26→17:01)
[2017-05-26] MEDS: CEFAZOLIN IVPB SCH ×3 (01:26→17:01)
[2017-05-26] MEDS: Multivitamins ADULT w/MIN LIQ* 15 ML UDC PO SCH (08:55)
[2017-05-26] MEDS: Allopurinol TAB* 100 MG PO SCH (08:56)
[2017-05-26] MEDS: CMCS: Nebivolol TAB (NF) 2.5 MG TAB PO SCH (08:56)
[2017-05-26] MEDS: amLODIPine TAB* 5 MG PO SCH (08:56)
[2017-05-26] MEDS: Potassium Chloride LIQUID* 20 MEQ PACKET PO SCH ×3 (08:56→21:16)
[2017-05-26] MEDS: Thiamine TAB* 100 MG TAB PO SCH (08:56)
[2017-05-26] MEDS: Magnesium Oxide TAB* 400 MG PO SCH (08:57)
[2017-05-26] MEDS: RiFAMPin CAP* 300 MG CAP PO SCH ×2 (08:57→21:16)
[2017-05-26] MEDS: Polyethylene Glycol 3350* 17 GM PACKET PO SCH (08:58)
[2017-05-26 09:33] LABS: EGFR Non-African American 155.4 (>60)
--- NOTE | 2017-05-26 11:21 | PN ---
Progress Note - Progress Note Date of Service: 05/26/17 SOAP: Subjective: [] Patient seen at bedside. he denies any current right shoulder or left knee pain , but states he has not tried to move them today. Objective: [] Vital Signs Temp 97.5 F 05/26/17 07:17 Pulse 78 05/26/17 07:17 Resp 16 05/26/17 08:15 BP 144/66 05/26/17 07:17 Pulse Ox 100 05/26/17 08:15 Intake & Output 05/25/17 05/26/17 05/26/17 18:59 06:59 18:59 Intake Total 1693 60 595 Output Total 0 Balance 1693 60 595 Intake: IV Fluids 773 595 tpn 773 595 IVPB 20 60 ABX - CEFAZOLIN 20 60 Oral 900 0 Output: Urine 0 Other: Estimated Void Large Large # Bowel Movements 0 Estimated Stool Amount Large # Voids 3 1 Laboratory Last Values WBC 6.2 10^3/ul (3.5-10.8) 05/24/17 07:15 RBC 2.62 10^6/ul (4.0-5.4) L 05/24/17 07:15 Hgb 7.7 g/dl (14.0-18.0) L 05/24/17 07:15 Hct 23 % (42-52) L 05/24/17 07:15 MCV 88 fL (80-94) 05/24/17 07:15 MCH 29 pg (27-31) 05/24/17 07:15 MCHC 33 g/dl (31-36) 05/24/17 07:15 RDW 16 % (10.5-15) H 05/24/17 07:15 Plt Count 238 10^3/ul (150-450) 05/24/17 07:15 MPV 6.7 um3 (7.4-10.4) L 05/24/17 07:15 Neut % (Auto) 70.6 % (38-83) 05/24/17 07:15 Lymph % (Auto) 14.2 % (25-47) L 05/24/17 07:15 [place] % (Auto) 11.1 % (0-7) H 05/24/17 07:15 Eos % (Auto) 3.6 % (0-6) 05/24/17 07:15 Baso % (Auto) 0.5 % (0-2) 05/24/17 07:15 Absolute Neuts (auto) 4.4 10^3/ul (1.5-7.7) 05/24/17 07:15 Absolute Lymphs (auto) 0.9 10^3/ul (1.0-4.8) L 05/24/17 07:15 Absolute Monos (auto) 0.7 10^3/ul (0-0.8) 05/24/17 07:15 Absolute Eos (auto) 0.2 10^3/ul (0-0.6) 05/24/17 07:15 Absolute Basos (auto) 0 10^3/ul (0-0.2) 05/24/17 07:15 Absolute Nucleated RBC 0 10^3/ul 05/24/17 07:15 Immature Gran % 5 % (0-9) 05/17/17 06:16 Neutrophils % 72 % (38-83) 05/17/17 06:16 Band Neutrophils % 1 % (0-8) 04/30/17 05:38 Lymphocytes % 11 % (25-47) L 05/17/17 06:16 Monocytes % 8 % (0-7) H 05/17/17 06:16 Eosinophils % 4 % (0-6) 05/17/17 06:16 Basophils % 0 % (0-2) 05/17/17 06:16 Metamyelocytes % 1 % (0-2) 05/17/17 06:16 Myelocytes % 4 % (0-1) H 05/17/17 06:16 Nucleated RBC % 0 05/24/17 07:15 Abs Neuts (Manual) 4.8 10^3/ul (1.5-7.7) 05/17/17 06:16 Abs Lymphs (Manual) 0.7 10^3/ul (1.0-4.8) L 05/17/17 06:16 Abs Monocytes (Manual) 0.5 10^3/ul (0-0.8) 05/17/17 06:16 Absolute Eos (Manual) 0.3 10^3/ul (0-0.6) 05/17/17 06:16 Abs Basophils (Manual) 0 10^3/ul (0-0.2) 05/17/17 06:16 Normal RBC Morphology Normal (Normal) 05/17/17 06:16 Polychromasia 1+ 05/19/17 03:15 Microcytosis 2+ 05/19/17 03:15 INR (Anticoag Therapy) 1.59 (0.77-1.02) H 05/21/17 06:06 APTT 35.6 seconds (26.0-36.3) 04/23/17 00:48 Patient Temperature Not Reportable 04/23/17 00:48 ABG pH 7.44 (7.35-7.45) 04/23/17 00:48 ABG pH (Temp Correct) Not Reportable 04/23/17 00:48 ABG pCO2 31 mmHg (35-45) L 04/23/17 00:48 ABG pCO2 (Temp Corrct Not Reportable 04/23/17 00:48 ABG pO2 128 mmHg (80-100) H 04/23/17 00:48 ABG pO2 (Temp Correct Not Reportable 04/23/17 00:48 ABG HCO3 23.0 mmol/L (19-31) 04/23/17 00:48 ABG O2 Saturation 99.2 % (95-98) H 04/23/17 00:48 ABG Base Excess -2.5 (-2.0-2.0) L 04/23/17 00:48 Respiration Rate 14 03 00:48 O2 Delivery Device ventilator 04/23/17 00:48 Ventilator Type 600 03 00:48 Vent Mode apv 04/23/17 00:48 FiO2 50 04/23/17 00:48 Inspiratory Time 1.0 04/23/17 00:48 PEEP 5 03 00:48 Pressure Support Not Reportable 04/23/17 00:48 Pressure Control Not Reportable 04/23/17 00:48 EPAP Not Reportable 04/23/17 00:48 IPAP Not Reportable 04/23/17 00:48 BiPAP Not Reportable 04/23/17 00:48 Sodium 139 mmol/L (139-145) 05/26/17 07:17 Potassium 3.8 mmol/L (3.5-5.0) 05/26/17 07:17 Chloride 108 mmol/L (101-111) 05/26/17 07:17 Carbon Dioxide 24 mmol/L (22-32) 05/26/17 07:17 Anion Gap 7 mmol/L (2-11) 05/26/17 07:17 BUN 10 mg/dL (6-24) 05/26/17 07:17 Creatinine 0.52 mg/dL (0.67-1.17) L 05/26/17 07:17 Est GFR ( Amer) 199.8 (>60) 05/26/17 07:17 Est GFR (Non-Af Amer) 155.4 (>60) 05/26/17 07:17 BUN/Creatinine Ratio 19.2 (8-20) 05/26/17 07:17 Glucose 103 mg/dL (70-100) H 05/26/17 07:17 POC Glucose (mg/dL) 135 mg/dL (70-100) H 05/26/17 07:57 Lactic Acid 1.1 mmol/L (0.5-2.0) 04/21/17 08:43 Calcium 7.6 mg/dL (8.6-10.3) L 05/26/17 07:17 Phosphorus 5.2 mg/dL (2.5-5.0) H 05/26/17 07:17 Magnesium 1.5 mg/dL (1.9-2.7) L 05/26/17 07:17 Iron < 15 ug/dL (50-212) L 05/12/17 14:24 TIBC 151 mcg/dL (250-450) L 05/12/17 14:24 % Saturation 10 % (15-55) L 05/12/17 14:24 Unsat Iron Binding 136.48514 ug/dL 05/12/17 14:24 Transferrin 108 mg/dL (203-362) L 05/12/17 14:24 Ferritin 1062.7 ng/mL (24-336) H 05/12/17 14:24 Total Bilirubin 0.30 mg/dL (0.2-1.0) 05/26/17 07:17 AST 17 U/L (13-39) 05/26/17 07:17 ALT < 3 U/L (7-52) L 05/26/17 07:17 Alkaline Phosphatase 82 U/L (34-104) 05/26/17 07:17 Ammonia 19 mol/L (16-53) 05/12/17 05:47 Troponin I 0.03 ng/mL (<0.04) 04/21/17 04:40 C-Reactive Protein 74.74 mg/L (< 5.00) H 05/24/17 07:15 Total Protein 5.2 g/dL (6.4-8.9) L 05/26/17 07:17 Albumin 1.8 g/dL (3.2-5.2) L 05/26/17 07:17 Globulin 3.4 g/dL (2-4) 05/26/17 07:17 Albumin/Globulin Ratio 0.5 (1-3) L 05/26/17 07:17 Prealbumin < 3 mg/dL (18-38) L 05/26/17 07:17 Triglycerides 108 mg/dL 05/26/17 07:17 Cholesterol 67 mg/dL 05/26/17 07:17 Lipase 28 U/L (11.0-82.0) 04/21/17 04:40 Fluid Source Synovial fluid 05/08/17 19:15 Fluid Volume 20 mL 05/08/17 19:15 Fluid Color Red 05/08/17 19:15 Fluid Appearance Bloody 05/08/17 19:15 Fluid WBC 8676 /mcL (0-438784) 05/08/17 19:15 Fluid RBC 01338 /mcL 05/08/17 19:15 Fluid Tot Cell Count 100 05/08/17 19:15 Fluid Neutrophils 93 % 05/08/17 19:15 Fluid Band Neutrophils 3 % 05/08/17 19:15 Fluid Lymphocytes 3 % 05/08/17 19:15 Fluid Reactive Lymphs Cancelled 05/14/17 14:30 Fluid Monocytes 1 % 05/08/17 19:15 Fluid Eosinophils Cancelled 05/14/17 14:30 Fluid Basophils Cancelled 05/14/17 14:30 Fluid Promyelocytes Cancelled 05/14/17 14:30 Fluid Myelocytes Cancelled 05/14/17 14:30 Fluid Metamyelocytes Cancelled 05/14/17 14:30 Fluid Blast Cells Cancelled 05/14/17 14:30 Fluid Nucleated RBCs Cancelled 05/14/17 14:30 Fluid Other Cells 1 04/23/17 10:30 Fluid Cell Count Rvw By 05/08/17 19:15 Fluid Crystals None seen (None Seen) 05/08/17 19:15 Fluid Total Protein 3.1 g/dL 04/23/17 10:30 Fluid Comment Cancelled 05/14/17 14:30 Blood Type O Positive 05/19/17 03:15 Antibody Screen Negative 05/19/17 03:15 Crossmatch See Detail 05/19/17 03:15 []General: Well appearing, NAD. Talkative with appropriate conversation, does not recall meeting me despite several past visits Right shoulder: Dressing CDI. SHoulder nonerythematous and nonedeamatous. right hand nonerythematous and nonedematous Radial pulse 2+, sensation intact throughout RUE. Cap refill less than two seconds. ROM 100 degrees forward flexion and 90 degrees abduction with endpoints limited by pain left knee: dressing cdi. knee nonerythematous. extension to 0, flexion to 90 degrees endpoints limited by pain Assessment: []]s/p right shoulder and left knee I&D Plan: [ Continue ancef/rifampin per ID PT/OT Dressing changes to knee and shoulder every other day CRP to be redrawn today
--- NOTE | 2017-05-26 14:38 | PN ---
Subjective Date of Service: 05/26/17 Interval History: C/O pain in shoulder after prompting, could not specify which or if both shoulders. Objective Active Medications: Acetaminophen (Tylenol Tab*) 650 mg PO Q4H PRN PRN Reason: FEVER Last Admin: 05/25/17 00:34 Dose: 650 mg Allopurinol (Zyloprim Tab*) 100 mg PO QAM [facility] Last Admin: 05/26/17 08:56 Dose: 100 mg Amlodipine Besylate (Norvasc Tab*) 5 mg PO DAILY [facility] Last Admin: 05/26/17 08:56 Dose: 5 mg Atorvastatin Calcium (Lipitor*) 20 mg PO 1700 [facility] Last Admin: 05/25/17 18:03 Dose: 20 mg Bisacodyl (Dulcolax Supp*) 10 mg [place] DAILY PRN PRN Reason: CONSTIPATION Last Admin: 05/19/17 11:07 Dose: 10 mg Docusate Sodium (Colace Cap*) 100 mg PO DAILY PRN PRN Reason: CONSTIPATION Last Admin: 05/18/17 16:48 Dose: 100 mg Haloperidol Lactate (Haldol Inj Iv/Im*) 5 mg IV SLOW PU Q6H PRN PRN Reason: AGITATION Last Admin: 05/25/17 22:20 Dose: 5 mg Heparin Sodium (Porcine) (Heparin Flush Picc/Ml/Cvc(*)) 1 - 3 ml FLUSH 0600, 1800 [facility] PRN Reason: Protocol Last Admin: 05/26/17 10:46 Dose: 1 ml Hydralazine HCl (Apresoline Iv*) 10 mg IV Q4H PRN PRN Reason: Systolic >170 Last Admin: 05/22/17 16:00 Dose: 10 mg Cefazolin Sodium 2 gm/ Sodium (Chloride) 20 mls @ 60 mls/hr IVPB 0100,0900, 1700 [facility] Last Admin: 05/26/17 08:54 Dose: 60 mls/hr Dextrose 500 ml/ Amino Acids 850 ml/ Sterile Water 150 ml/Fat Emulsion Intravenous 250 ml/ Sodium Chloride 100 meq/Potassium Chloride 50 meq/Potassium Phosphate 15 mmole/Calcium Gluconate 15 meq/Magnesium Sulfate 20 meq/ Multivitamins 10 ml/ Trace Metals 1 ml/ Phytonadione 0.2 mg/ Nutrition ( Parenteral) 1,853.2841 mls @ 77.22 mls/hr CENTR 1700 [facility] PRN Reason: Protocol Magnesium Hydroxide (Milk Of Magnesia Liq*) 30 ml PO Q4H PRN PRN Reason: CONSTIPATION Last Admin: 05/19/17 11:05 Dose: 30 ml Magnesium Oxide (Magox 400 Tab*) 400 mg PO DAILY [facility] Last Admin: 05/26/17 08:57 Dose: 400 mg Multivitamins (Theragran W/Minerals Liq*) 15 ml PO DAILY [facility] Last Admin: 05/26/17 08:55 Dose: 15 ml Nebivolol (Bystolic Tab (Nf)) 10 mg PO QAM [facility] Last Admin: 05/26/17 08:56 Dose: 10 mg Ondansetron HCl (Zofran Inj*) 4 mg IV Q6H PRN PRN Reason: NAUSEA/VOMITING Last Admin: 05/16/17 09:31 Dose: 4 mg Polyethylene Glycol/Electrolytes (Miralax*) 17 gm PO DAILY [facility] Last Admin: 05/26/17 08:58 Dose: Not Given Polyvinyl Alcohol (Polyvinyl Alcohol 1.4% Opth*) 1 drop BOTH EYES Q2H PRN PRN Reason: DRY EYE Last Admin: 05/20/17 16:53 Dose: 1 drop Potassium Chloride (Klor-Con Liquid*) 20 meq PO TID [facility] Last Admin: 05/26/17 13:06 Dose: 20 meq Rifampin (Rifampin Cap*) 300 mg PO BID [facility] Last Admin: 05/26/17 08:57 Dose: 300 mg Sodium Biphosphate/Sodium Phosphate (Fleet Enema*) 1 bottle [place] DAILY PRN PRN Reason: CONSTIPATION Thiamine HCl (Vitamin B-1 Tab*) 100 mg PO DAILY [facility] Last Admin: 05/26/17 08:56 Dose: 100 mg Vital Signs - 8 hr 05/26/17 05/26/17 05/26/17 07:17 08:06 08:15 Temperature 97.5 F Pulse Rate 78 Respiratory 18 16 16 Rate Blood Pressure 144/66 (mmHg) O2 Sat by Pulse 100 100 Oximetry 05/26/17 05/26/17 11:18 11:27 Temperature 98.0 F Pulse Rate 78 Respiratory 18 Rate Blood Pressure 141/39 145/60 (mmHg) O2 Sat by Pulse 99 Oximetry Oxygen Devices in Use Now: None Appearance: Alert when aroused, sleeps when left alone. In a chair. Neutral affect. Looks comfortable. Eyes: No Scleral Icterus Extremities: No Edema, No Clubbing, Cyanosis, - Skin: No Rash or Ulcers, No Nodules or Sclerosis, - Result Diagrams: 05/24/17 07:15 05/26/17 07:17 Additional Lab and Data: Laboratory Results - last 24 hr 05/16/17 05/16/17 05/17/17 20:07 20:07 06:16 WBC 8.2 6.6 RBC 2.44 L 2.33 L Hgb 7.3 L 7.1 L Hct 22 L 21 L MCV 91 91 MCH 30 30 MCHC 33 33 RDW 16 H 16 H Plt Count 356 331 MPV 6.6 L 6.8 L Neut % (Auto) 70.6 Not Reportable Lymph % (Auto) 11.5 L Not Reportable Terrell % (Auto) 9.3 H Not Reportable Eos % (Auto) 7.6 H Not Reportable Baso % (Auto) 1.0 Not Reportable Absolute Neuts (auto) 5.8 4.3 Absolute Lymphs (auto) 0.9 L 0.9 L Absolute Monos (auto) 0.8 0.7 Absolute Eos (auto) 0.6 0.6 Absolute Basos (auto) 0.1 0 Absolute Nucleated RBC 0 0 Immature Gran % 5 Neutrophils % 72 Lymphocytes % 11 L Monocytes % 8 H Eosinophils % 4 Basophils % 0 Metamyelocytes % 1 Myelocytes % 4 H Nucleated RBC % 0 0 Abs Neuts (Manual) 4.8 Abs Lymphs (Manual) 0.7 L Abs Monocytes (Manual) 0.5 Absolute Eos (Manual) 0.3 Abs Basophils (Manual) 0 Normal RBC Morphology Normal Sodium 139 Potassium 4.0 Chloride 106 Carbon Dioxide 24 Anion Gap 9 BUN 11 Creatinine 0.94 Est GFR ( Amer) 100.9 Est GFR (Non-Af Amer) 78.4 BUN/Creatinine Ratio 11.7 Glucose 82 Calcium 7.7 L Magnesium 1.8 L C-Reactive Protein 05/17/17 06:19 WBC RBC Hgb Hct MCV MCH MCHC RDW Plt Count MPV Neut % (Auto) Lymph % (Auto) Terrell % (Auto) Eos % (Auto) Baso % (Auto) Absolute Neuts (auto) Absolute Lymphs (auto) Absolute Monos (auto) Absolute Eos (auto) Absolute Basos (auto) Absolute Nucleated RBC Immature Gran % Neutrophils % Lymphocytes % Monocytes % Eosinophils % Basophils % Metamyelocytes % Myelocytes % Nucleated RBC % Abs Neuts (Manual) Abs Lymphs (Manual) Abs Monocytes (Manual) Absolute Eos (Manual) Abs Basophils (Manual) Normal RBC Morphology Sodium 140 Potassium 3.4 L Chloride 106 Carbon Dioxide 24 Anion Gap 10 BUN 11 Creatinine 0.89 Est GFR ( Amer) 107.5 Est GFR (Non-Af Amer) 83.6 BUN/Creatinine Ratio 12.4 Glucose 69 L Calcium 7.8 L Magnesium 1.7 L C-Reactive Protein 113.15 H Microbiology and Other Data: Microbiology 04/23/17 10:30 Misc Source (See Comment) - Other Fungal Culture - Preliminary 05/14/17 14:30 Misc Fluid (See Comment) - Abscess Gram Stain - Final 05/14/17 14:30 Misc Fluid (See Comment) - Abscess Body Fluid Culture - Preliminary No Growth Day 2 05/14/17 14:30 Misc Fluid (See Comment) - Abscess Skin and Soft Tissue MRSA/ MSSA (PCR - Final Mrsa Negative S.aureus Positive 05/12/17 01:30 Blood Venous Aerobic Blood Culture - Final No Growth Day 5 05/12/17 01:30 Blood Venous Anaerobic Blood Culture - Final No Growth Day 5 05/12/17 01:30 Blood Venous Aerobic Blood Culture - Final No Growth Day 5 05/12/17 01:30 Blood Venous Anaerobic Blood Culture - Final No Growth Day 5 05/12/17 00:48 Blood Venous Aerobic Blood Culture - Final No Growth Day 5 05/12/17 00:48 Blood Venous Anaerobic Blood Culture - Final No Growth Day 5 05/09/17 17:00 Blood Venous Aerobic Blood Culture - Final No Growth Day 5 05/09/17 17:00 Blood Venous Anaerobic Blood Culture - Final No Growth Day 5 05/09/17 17:00 Blood Venous Aerobic Blood Culture - Final No Growth Day 5 05/09/17 17:00 Blood Venous Anaerobic Blood Culture - Final No Growth Day 5 05/08/17 19:15 Joint Fluid(Synovial) Gram Stain - Final 05/08/17 19:15 Joint Fluid(Synovial) Body Fluid Culture - Final No Growth Day 4 05/08/17 19:15 Joint Fluid(Synovial) Skin and Soft Tissue MRSA/MSSA (PCR - Final Mrsa Negative S.aureus Negative 05/08/17 19:15 Body Fluid Gram Stain - Final 05/08/17 19:15 Body Fluid Body Fluid Culture - Final No Growth Day 4 05/08/17 19:15 Body Fluid Skin and Soft Tissue MRSA/MSSA (PCR - Final Mrsa Negative S.aureus Positive 04/27/17 08:00 Blood Venous Aerobic Blood Culture - Final No Growth Day 5 04/27/17 08:00 Blood Venous Anaerobic Blood Culture - Final No Growth Day 5 04/27/17 06:10 Blood Venous Aerobic Blood Culture - Final Staphylococcus Epidermidis 04/27/17 06:10 Blood Venous Anaerobic Blood Culture - Final No Growth Day 5 04/27/17 06:10 Blood Venous Blood MRSA/MSSA (PCR) - Final Mrsa Negative S.aureus Negative 04/26/17 21:00 Wound - Wound Anaerobic Culture - Final 04/26/17 21:00 Wound - Wound Skin and Soft Tissue MRSA/MSSA (PCR - Final Mrsa Negative S.aureus Positive 04/26/17 21:00 Wound - Wound Gram Stain - Final 04/26/17 21:00 Wound - Wound Wound Culture - Final Staphylococcus Aureus 04/23/17 15:53 Wound - Knee Left Anaerobic Culture - Final 04/23/17 15:53 Wound - Knee Left Skin and Soft Tissue MRSA/MSSA (PCR - Final Mrsa Negative S.aureus Positive 04/23/17 15:53 Wound - Knee Left Gram Stain - Final 04/23/17 15:53 Wound - Knee Left Wound Culture - Final Staphylococcus Aureus 04/23/17 10:30 Joint Fluid(Synovial) - Knee Left Gram Stain - Final 04/23/17 10:30 Joint Fluid(Synovial) - Knee Left Body Fluid Culture - Final Staphylococcus Aureus 04/23/17 10:30 Joint Fluid(Synovial) - Knee Left Skin and Soft Tissue MRSA/ MSSA (PCR - Final Mrsa Negative S.aureus Positive 04/22/17 16:56 Wound - Abscess Anaerobic Culture - Final 04/22/17 16:56 Wound - Abscess Skin and Soft Tissue MRSA/MSSA (PCR - Final Mrsa Negative S.aureus Positive 04/22/17 16:56 Wound - Abscess Gram Stain - Final 04/22/17 16:56 Wound - Abscess Wound Culture - Final Staphylococcus Aureus 04/22/17 15:00 Wound - Other Anaerobic Culture - Final 04/22/17 15:00 Misc Source (See Comment) - Other Skin and Soft Tissue MRSA/ MSSA (PCR - Final Mrsa Negative S.aureus Positive 04/22/17 15:00 Misc Source (See Comment) - Other Gram Stain - Final 04/22/17 15:00 Misc Source (See Comment) - Other Wound Culture - Final Staphylococcus Aureus 04/21/17 05:40 Blood Venous Aerobic Blood Culture - Final Staphylococcus Aureus 04/21/17 05:40 Blood Venous Anaerobic Blood Culture - Final Staphylococcus Aureus 04/21/17 05:40 Blood Venous Blood MRSA/MSSA (PCR) - Final Mrsa Negative S.aureus Positive 04/21/17 04:40 Blood Venous Aerobic Blood Culture - Final Staphylococcus Aureus 04/21/17 04:40 Blood Venous Anaerobic Blood Culture - Final Staphylococcus Aureus 04/21/17 04:40 Blood Venous Blood MRSA/MSSA (PCR) - Final Mrsa Negative S.aureus Positive 04/22/17 06:20 Nasal Nasal Screen MRSA (PCR)(KEEGAN) - Final Mrsa Not Detected Assess/Plan/Problems-Billing Mr Bonilla is a 76 yo M with h/o HTN, multiple joint replacements, GI bleed (and partial colon resection due to bleed) who presented to the ER with c/o fever and severe back pain and was ultimately found to have a very large epidural abscess/septic joints, R septic shoulder, L septic knee, right psoas abscess s/ p drainage in the setting of MSSA bacteremia (presumably from IV placed in ED at previous visit) with stay notable for delirium - Patient Problems (1) Staphylococcus aureus bacteremia Current Visit: Yes Status: Resolved Code(s): R78.81 - BACTEREMIA SNOMED Code(s): 895235632 Comment: MSSA with L knee and R shoulder septic arthropathy. Continue cefazolin and rifampin. PO oxycodone PRN pain. Repeat joint fluid aspirations from R shoulder and L knee from 05/08 both no growth day 2. Psoas abcess drained 20 ml purulent material 05/14. CT with contrast showed fluid collections at T1-3, L4. T 100.4 on 05/23/17. CRP on 05/26 down to 60.48. (2) HTN (hypertension) Current Visit: Yes Status: Acute Code(s): I10 - ESSENTIAL (PRIMARY) HYPERTENSION SNOMED Code(s): 89685478 Comment: Continue nebivolol 10mg daily and amlodipine 5mg daily. (3) Debility Current Visit: Yes Status: Acute Code(s): R53.81 - OTHER MALAISE SNOMED Code(s): 09414137 Comment: He will need STR. (4) Hypoalbuminemia Current Visit: Yes Status: Acute Code(s): E88.09 - OTH DISORDERS OF PLASMA- PROTEIN METABOLISM, NEC SNOMED Code(s): 034230535 Comment: Calorie counts 05/10- averaged 507 calories per day. Prealbumin 6 and albumin level 2.1 on 05/11. Repeat set of 3 calorie counts ordered. TPN started 05/24. Not clear what the risk of him pulling out a PEG tube would be if he had one. Status and Disposition: medicine inpatient.
[2017-05-26] MEDS: Atorvastatin* 20 MG TAB PO SCH (16:50)
[2017-05-26] MEDS: TPN* 24 HR with Dextrose 50% Water* 500 ML, Amino Acid Infusion 10%* 850 ML, Sterile Wa... CENTR SCH ×13 (16:57)
[2017-05-26] MEDS: hydrALAZINE IV* 20 MG/ML VIAL IV PRN (17:06)
[2017-05-27] MEDS: NS 0.9% IVPB SCH ×3 (01:47→16:58)
[2017-05-27] MEDS: CEFAZOLIN IVPB SCH ×3 (01:47→16:58)
[2017-05-27 06:10] LABS: EGFR Non-African American 126.8 (>60)
--- NOTE | 2017-05-27 08:29 | PN ---
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 Had repeat I&D of shoulder. He notes no pain or diarrhea. Objective: Vital Signs Temp 37.3 C 05/27/17 07:18 Pulse 115 05/27/17 07:18 Resp 20 05/27/17 08:00 BP 148/91 05/27/17 07:18 Pulse Ox 100 05/27/17 07:18 Intake & Output 05/26/17 05/27/17 05/27/17 18:59 06:59 18:59 Intake Total 1814 2073 Output Total 225 Balance 1814 1848 Intake: IV Fluids 595 1693 tpn 595 1693 IVPB 20 ABX - CEFAZOLIN 20 TPN/PPN 739 Oral 480 360 Output: Urine 225 Other: Estimated Void Large Medium # Bowel Movements 1 3 Estimated Stool Amount Small Medium # Voids 1 2 Gen:no distress Neuro: awake, Ox1 HEENT:PERRL, MMD Heart:RRR no murmur Lungs:clear to auscultation Abd:+ BS NTND soft Skin: no rash; spine incision intact Laboratory Results - last 24 hr 05/26/17 05/26/17 05/26/17 07:17 07:21 11:42 Sodium 139 Potassium 3.8 Chloride 108 Carbon Dioxide 24 Anion Gap 7 BUN 10 Creatinine 0.52 L Est GFR ( Amer) 199.8 Est GFR (Non-Af Amer) 155.4 BUN/Creatinine Ratio 19.2 Glucose 103 H POC Glucose (mg/dL) 100 Calcium 7.6 L Phosphorus 5.2 H Magnesium 1.5 L Total Bilirubin 0.30 AST 17 ALT < 3 L Alkaline Phosphatase 82 C-Reactive Protein 60.48 H Total Protein 5.2 L Albumin 1.8 L Globulin 3.4 Albumin/Globulin Ratio 0.5 L Triglycerides 108 Cholesterol 67 05/26/17 05/26/17 05/26/17 16:33 16:44 19:19 Sodium Potassium Chloride Carbon Dioxide Anion Gap BUN Creatinine Est GFR ( Amer) Est GFR (Non-Af Amer) BUN/Creatinine Ratio Glucose POC Glucose (mg/dL) 59 L 132 H 139 H Calcium Phosphorus Magnesium Total Bilirubin AST ALT Alkaline Phosphatase C-Reactive Protein Total Protein Albumin Globulin Albumin/Globulin Ratio Triglycerides Cholesterol 05/26/17 05/27/17 05/27/17 23:20 03:46 05:37 Sodium 135 L Potassium 4.0 Chloride 108 Carbon Dioxide 22 Anion Gap 5 BUN 13 Creatinine 0.62 L Est GFR ( Amer) 163.1 Est GFR (Non-Af Amer) 126.8 BUN/Creatinine Ratio 21.0 H Glucose 113 H POC Glucose (mg/dL) 150 H 154 H Calcium 8.1 L Phosphorus Magnesium Total Bilirubin AST ALT Alkaline Phosphatase C-Reactive Protein Total Protein Albumin Globulin Albumin/Globulin Ratio Triglycerides Cholesterol 05/27/17 05/27/17 07:59 08:02 Sodium Potassium Chloride Carbon Dioxide Anion Gap BUN Creatinine Est GFR ( Amer) Est GFR (Non-Af Amer) BUN/Creatinine Ratio Glucose POC Glucose (mg/dL) 50 L 114 H Calcium Phosphorus Magnesium Total Bilirubin AST ALT Alkaline Phosphatase C-Reactive Protein Total Protein Albumin Globulin Albumin/Globulin Ratio Triglycerides Cholesterol Assessment: 1. MSSA epidural abscess s/p I&D; psoas abscess s/p IR drain 2. 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 MSSA septic right shoulder s/p I&D x2 4. presence bilateral hip arthroplasties 5. encephalopathy ?worse since anesthesia 6. elevated CRP due to above, improving Plan: 1. 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 encephalopathy is his main barrier to therapy and recovery at this point
[2017-05-27] MEDS: Allopurinol TAB* 100 MG PO SCH (10:08)
[2017-05-27] MEDS: amLODIPine TAB* 5 MG PO SCH (10:10)
[2017-05-27] MEDS: Magnesium Oxide TAB* 400 MG PO SCH (10:11)
[2017-05-27] MEDS: Multivitamins ADULT w/MIN LIQ* 15 ML UDC PO SCH (10:13)
[2017-05-27] MEDS: Thiamine TAB* 100 MG TAB PO SCH (10:14)
[2017-05-27] MEDS: Acetaminophen TAB* 325 MG PO PRN (10:15)
[2017-05-27] MEDS: CMCS: Nebivolol TAB (NF) 2.5 MG TAB PO SCH (10:16)
[2017-05-27] MEDS: RiFAMPin CAP* 300 MG CAP PO SCH ×2 (10:16→21:54)
[2017-05-27] MEDS: Polyethylene Glycol 3350* 17 GM PACKET PO SCH (10:17)
[2017-05-27] MEDS: Potassium Chloride LIQUID* 20 MEQ PACKET PO SCH ×3 (10:18→21:54)
--- NOTE | 2017-05-27 14:59 | PN ---
Subjective Date of Service: 05/27/17 Interval History: HOSPITALIST PROGRESS NOTE Patient seen and examined at bedside. Confused, c/o right shoulder pain, doesn't know why he's in the hospital. Family History: Unchanged from Admission Social History: Unchanged from Admission Past Medical History: Unchanged from Admission Objective Active Medications: Acetaminophen (Tylenol Tab*) 650 mg PO Q4H PRN PRN Reason: FEVER Last Admin: 05/27/17 10:15 Dose: 650 mg Allopurinol (Zyloprim Tab*) 100 mg PO QAM [facility] Last Admin: 05/27/17 10:08 Dose: 100 mg Amlodipine Besylate (Norvasc Tab*) 5 mg PO DAILY [facility] Last Admin: 05/27/17 10:10 Dose: 5 mg Atorvastatin Calcium (Lipitor*) 20 mg PO 1700 [facility] Last Admin: 05/26/17 16:50 Dose: 20 mg Bisacodyl (Dulcolax Supp*) 10 mg [place] DAILY PRN PRN Reason: CONSTIPATION Last Admin: 05/19/17 11:07 Dose: 10 mg Docusate Sodium (Colace Cap*) 100 mg PO DAILY PRN PRN Reason: CONSTIPATION Last Admin: 05/18/17 16:48 Dose: 100 mg Haloperidol Lactate (Haldol Inj Iv/Im*) 5 mg IV SLOW PU Q6H PRN PRN Reason: AGITATION Last Admin: 05/25/17 22:20 Dose: 5 mg Heparin Sodium (Porcine) (Heparin Flush Picc/Ml/Cvc(*)) 1 - 3 ml FLUSH 0600, 1800 [facility] PRN Reason: Protocol Last Admin: 05/27/17 05:36 Dose: 1 ml Hydralazine HCl (Apresoline Iv*) 10 mg IV Q4H PRN PRN Reason: Systolic >170 Last Admin: 05/26/17 17:06 Dose: 10 mg Cefazolin Sodium 2 gm/ Sodium (Chloride) 20 mls @ 60 mls/hr IVPB 0100,0900, 1700 [facility] Last Admin: 05/27/17 10:28 Dose: 60 mls/hr Dextrose 500 ml/ Amino Acids 850 ml/ Sterile Water 150 ml/Fat Emulsion Intravenous 250 ml/ Sodium Chloride 100 meq/Potassium Chloride 50 meq/Potassium Phosphate 15 mmole/Calcium Gluconate 15 meq/Magnesium Sulfate 20 meq/ Multivitamins 10 ml/ Trace Metals 1 ml/ Phytonadione 0.2 mg/ Nutrition ( Parenteral) 1,853.2841 mls @ 77.22 mls/hr CENTR 1700 [facility] PRN Reason: Protocol Last Admin: 05/26/17 16:57 Dose: 77.22 mls/hr Magnesium Hydroxide (Milk Of Magnesia Liq*) 30 ml PO Q4H PRN PRN Reason: CONSTIPATION Last Admin: 05/19/17 11:05 Dose: 30 ml Magnesium Oxide (Magox 400 Tab*) 400 mg PO DAILY [facility] Last Admin: 05/27/17 10:11 Dose: 400 mg Multivitamins (Theragran W/Minerals Liq*) 15 ml PO DAILY [facility] Last Admin: 05/27/17 10:13 Dose: 15 ml Nebivolol (Bystolic Tab (Nf)) 10 mg PO QAM [facility] Last Admin: 05/27/17 10:16 Dose: 10 mg Ondansetron HCl (Zofran Inj*) 4 mg IV Q6H PRN PRN Reason: NAUSEA/VOMITING Last Admin: 05/16/17 09:31 Dose: 4 mg Polyethylene Glycol/Electrolytes (Miralax*) 17 gm PO DAILY [facility] Last Admin: 05/27/17 10:17 Dose: 17 gm Polyvinyl Alcohol (Polyvinyl Alcohol 1.4% Opth*) 1 drop BOTH EYES Q2H PRN PRN Reason: DRY EYE Last Admin: 05/20/17 16:53 Dose: 1 drop Potassium Chloride (Klor-Con Liquid*) 20 meq PO TID [facility] Last Admin: 05/27/17 14:41 Dose: 20 meq Rifampin (Rifampin Cap*) 300 mg PO BID [facility] Last Admin: 05/27/17 10:16 Dose: 300 mg Sodium Biphosphate/Sodium Phosphate (Fleet Enema*) 1 bottle [place] DAILY PRN PRN Reason: CONSTIPATION Thiamine HCl (Vitamin B-1 Tab*) 100 mg PO DAILY [facility] Last Admin: 05/27/17 10:14 Dose: 100 mg Vital Signs - 8 hr 05/27/17 05/27/17 05/27/17 07:18 08:00 13:58 Temperature 99.2 F 98.8 F Pulse Rate 115 77 Respiratory 18 20 20 Rate Blood Pressure 148/91 152/58 (mmHg) O2 Sat by Pulse 100 100 Oximetry Oxygen Devices in Use Now: None Appearance: Elderly male lying in bed in NAD. Eyes: No Scleral Icterus Ears/Nose/Mouth/Throat: Mucous Membranes Moist Neck: Trachea Midline Respiratory: Symmetrical Chest Expansion and Respiratory Effort, Clear to Auscultation Cardiovascular: NL Sounds; No Murmurs; No JVD, RRR Neurological: - - AAOx1 (self only) Result Diagrams: 05/24/17 07:15 05/27/17 05:37 Assess/Plan/Problems-Billing Assessment: Mr Bonilla is a 76 yo M with h/o HTN, multiple joint replacements, GI bleed (and partial colon resection due to bleed) who presented to the ER with c/o fever and severe back pain and was ultimately found to have a very large epidural abscess/septic joints, R septic shoulder, L septic knee, right psoas abscess s/ p drainage in the setting of MSSA bacteremia with stay complicated by delirium. 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 - Blood cultures have been negative since 05/09/17. - Continue rifampin and ancef day 34/[address] Franklin. (2) Encephalopathy Comment: - Likely associated with infection, but prolonged and worsened by recent anesthesia. (3) HTN (hypertension) Comment: - Controlled. - Continue nebivolol 10mg daily and amlodipine 5mg daily. (4) Severe protein-calorie malnutrition Comment: - Has lost 30lbs since admission. - Prealbumin <3. - Continue TPN (started 05/24/17). (5) DVT prophylaxis Comment: - Resume SQ heparin. (6) Full code status Status and Disposition: Inpatient for extensive MSSA infection management.
[2017-05-27] MEDS: Atorvastatin* 20 MG TAB PO SCH (16:57)
[2017-05-27] MEDS: TPN* 24 HR with Dextrose 50% Water* 500 ML, Amino Acid Infusion 10%* 850 ML, Sterile Wa... CENTR SCH ×13 (16:58)
--- NOTE | 2017-05-27 17:20 | PN ---
Progress Note - Progress Note Date of Service: 05/27/17 SOAP: Subjective: [] Patient seen at bedside. He feels well with no complaint of pain. Objective: [] Vital Signs Temp 98.3 F 05/27/17 15:31 Pulse 75 05/27/17 15:31 Resp 20 05/27/17 15:31 BP 139/78 05/27/17 15:31 Pulse Ox 100 05/27/17 15:31 Intake & Output 05/26/17 05/27/17 05/27/17 18:59 06:59 18:59 Intake Total 1814 2073 340 Output Total 225 Balance 1814 1848 340 Intake: IV Fluids 595 1693 tpn 595 1693 IVPB 20 ABX - CEFAZOLIN 20 TPN/PPN 739 Oral 480 360 340 Output: Urine 225 Other: Estimated Void Large Medium Large # Bowel Movements 1 3 1 Estimated Stool Amount Small Medium Small # Voids 1 2 3 Laboratory Last Values WBC 6.2 10^3/ul (3.5-10.8) 05/24/17 07:15 RBC 2.62 10^6/ul (4.0-5.4) L 05/24/17 07:15 Hgb 7.7 g/dl (14.0-18.0) L 05/24/17 07:15 Hct 23 % (42-52) L 05/24/17 07:15 MCV 88 fL (80-94) 05/24/17 07:15 MCH 29 pg (27-31) 05/24/17 07:15 MCHC 33 g/dl (31-36) 05/24/17 07:15 RDW 16 % (10.5-15) H 05/24/17 07:15 Plt Count 238 10^3/ul (150-450) 05/24/17 07:15 MPV 6.7 um3 (7.4-10.4) L 05/24/17 07:15 Neut % (Auto) 70.6 % (38-83) 05/24/17 07:15 Lymph % (Auto) 14.2 % (25-47) L 05/24/17 07:15 [place] % (Auto) 11.1 % (0-7) H 05/24/17 07:15 Eos % (Auto) 3.6 % (0-6) 05/24/17 07:15 Baso % (Auto) 0.5 % (0-2) 05/24/17 07:15 Absolute Neuts (auto) 4.4 10^3/ul (1.5-7.7) 05/24/17 07:15 Absolute Lymphs (auto) 0.9 10^3/ul (1.0-4.8) L 05/24/17 07:15 Absolute Monos (auto) 0.7 10^3/ul (0-0.8) 05/24/17 07:15 Absolute Eos (auto) 0.2 10^3/ul (0-0.6) 05/24/17 07:15 Absolute Basos (auto) 0 10^3/ul (0-0.2) 05/24/17 07:15 Absolute Nucleated RBC 0 10^3/ul 05/24/17 07:15 Immature Gran % 5 % (0-9) 05/17/17 06:16 Neutrophils % 72 % (38-83) 05/17/17 06:16 Band Neutrophils % 1 % (0-8) 04/30/17 05:38 Lymphocytes % 11 % (25-47) L 05/17/17 06:16 Monocytes % 8 % (0-7) H 05/17/17 06:16 Eosinophils % 4 % (0-6) 05/17/17 06:16 Basophils % 0 % (0-2) 05/17/17 06:16 Metamyelocytes % 1 % (0-2) 05/17/17 06:16 Myelocytes % 4 % (0-1) H 05/17/17 06:16 Nucleated RBC % 0 05/24/17 07:15 Abs Neuts (Manual) 4.8 10^3/ul (1.5-7.7) 05/17/17 06:16 Abs Lymphs (Manual) 0.7 10^3/ul (1.0-4.8) L 05/17/17 06:16 Abs Monocytes (Manual) 0.5 10^3/ul (0-0.8) 05/17/17 06:16 Absolute Eos (Manual) 0.3 10^3/ul (0-0.6) 05/17/17 06:16 Abs Basophils (Manual) 0 10^3/ul (0-0.2) 05/17/17 06:16 Normal RBC Morphology Normal (Normal) 05/17/17 06:16 Polychromasia 1+ 05/19/17 03:15 Microcytosis 2+ 05/19/17 03:15 INR (Anticoag Therapy) 1.59 (0.77-1.02) H 05/21/17 06:06 APTT 35.6 seconds (26.0-36.3) 04/23/17 00:48 Patient Temperature Not Reportable 04/23/17 00:48 ABG pH 7.44 (7.35-7.45) 04/23/17 00:48 ABG pH (Temp Correct) Not Reportable 04/23/17 00:48 ABG pCO2 31 mmHg (35-45) L 04/23/17 00:48 ABG pCO2 (Temp Corrct Not Reportable 04/23/17 00:48 ABG pO2 128 mmHg (80-100) H 04/23/17 00:48 ABG pO2 (Temp Correct Not Reportable 04/23/17 00:48 ABG HCO3 23.0 mmol/L (19-31) 04/23/17 00:48 ABG O2 Saturation 99.2 % (95-98) H 04/23/17 00:48 ABG Base Excess -2.5 (-2.0-2.0) L 04/23/17 00:48 Respiration Rate 14 04/23/17 00:48 O2 Delivery Device ventilator 04/23/17 00:48 Ventilator Type 600 03 00:48 Vent Mode apv 04/23/17 00:48 FiO2 50 04/23/17 00:48 Inspiratory Time 1.0 04/23/17 00:48 PEEP 5 04/23/17 00:48 Pressure Support Not Reportable 04/23/17 00:48 Pressure Control Not Reportable 04/23/17 00:48 EPAP Not Reportable 04/23/17 00:48 IPAP Not Reportable 04/23/17 00:48 BiPAP Not Reportable 04/23/17 00:48 Sodium 135 mmol/L (139-145) L 05/27/17 05:37 Potassium 4.0 mmol/L (3.5-5.0) 05/27/17 05:37 Chloride 108 mmol/L (101-111) 05/27/17 05:37 Carbon Dioxide 22 mmol/L (22-32) 05/27/17 05:37 Anion Gap 5 mmol/L (2-11) 05/27/17 05:37 BUN 13 mg/dL (6-24) 05/27/17 05:37 Creatinine 0.62 mg/dL (0.67-1.17) L 05/27/17 05:37 Est GFR ( Amer) 163.1 (>60) 05/27/17 05:37 Est GFR (Non-Af Amer) 126.8 (>60) 05/27/17 05:37 BUN/Creatinine Ratio 21.0 (8-20) H 05/27/17 05:37 Glucose 113 mg/dL (70-100) H 05/27/17 05:37 POC Glucose (mg/dL) 145 mg/dL (70-100) H 05/27/17 16:33 Lactic Acid 1.1 mmol/L (0.5-2.0) 04/21/17 08:43 Calcium 8.1 mg/dL (8.6-10.3) L 05/27/17 05:37 Phosphorus 5.2 mg/dL (2.5-5.0) H 05/26/17 07:17 Magnesium 1.5 mg/dL (1.9-2.7) L 05/26/17 07:17 Iron < 15 ug/dL (50-212) L 05/12/17 14:24 TIBC 151 mcg/dL (250-450) L 05/12/17 14:24 % Saturation 10 % (15-55) L 05/12/17 14:24 Unsat Iron Binding 136.31985 ug/dL 05/12/17 14:24 Transferrin 108 mg/dL (203-362) L 05/12/17 14:24 Ferritin 1062.7 ng/mL (24-336) H 05/12/17 14:24 Total Bilirubin 0.30 mg/dL (0.2-1.0) 05/26/17 07:17 AST 17 U/L (13-39) 05/26/17 07:17 ALT < 3 U/L (7-52) L 05/26/17 07:17 Alkaline Phosphatase 82 U/L (34-104) 05/26/17 07:17 Ammonia 19 mol/L (16-53) 05/12/17 05:47 Troponin I 0.03 ng/mL (<0.04) 04/21/17 04:40 C-Reactive Protein 60.48 mg/L (< 5.00) H 05/26/17 07:21 Total Protein 5.2 g/dL (6.4-8.9) L 05/26/17 07:17 Albumin 1.8 g/dL (3.2-5.2) L 05/26/17 07:17 Globulin 3.4 g/dL (2-4) 05/26/17 07:17 Albumin/Globulin Ratio 0.5 (1-3) L 05/26/17 07:17 Prealbumin < 3 mg/dL (18-38) L 05/26/17 07:17 Triglycerides 108 mg/dL 05/26/17 07:17 Cholesterol 67 mg/dL 05/26/17 07:17 Lipase 28 U/L (11.0-82.0) 04/21/17 04:40 Fluid Source Synovial fluid 05/08/17 19:15 Fluid Volume 20 mL 05/08/17 19:15 Fluid Color Red 05/08/17 19:15 Fluid Appearance Bloody 05/08/17 19:15 Fluid WBC 8676 /mcL (0-437213) 05/08/17 19:15 Fluid RBC 71164 /mcL 05/08/17 19:15 Fluid Tot Cell Count 100 05/08/17 19:15 Fluid Neutrophils 93 % 05/08/17 19:15 Fluid Band Neutrophils 3 % 05/08/17 19:15 Fluid Lymphocytes 3 % 05/08/17 19:15 Fluid Reactive Lymphs Cancelled 05/14/17 14:30 Fluid Monocytes 1 % 05/08/17 19:15 Fluid Eosinophils Cancelled 05/14/17 14:30 Fluid Basophils Cancelled 05/14/17 14:30 Fluid Promyelocytes Cancelled 05/14/17 14:30 Fluid Myelocytes Cancelled 05/14/17 14:30 Fluid Metamyelocytes Cancelled 05/14/17 14:30 Fluid Blast Cells Cancelled 05/14/17 14:30 Fluid Nucleated RBCs Cancelled 05/14/17 14:30 Fluid Other Cells 1 04/23/17 10:30 Fluid Cell Count Rvw By 05/08/17 19:15 Fluid Crystals None seen (None Seen) 05/08/17 19:15 Fluid Total Protein 3.1 g/dL 04/23/17 10:30 Fluid Comment Cancelled 05/14/17 14:30 Blood Type O Positive 05/19/17 03:15 Antibody Screen Negative 05/19/17 03:15 Crossmatch See Detail 05/19/17 03:15 General: Well appearing, NAD. Talkative with appropriate conversation, family present Right shoulder: Dressing changed, Incisions CDI. Shoulder nonerythematous and nonedematous. right hand nonerythematous and nonedematous Radial pulse 2, sensation intact throughout RUE. Cap refill less than two seconds. ROM 100 degrees forward flexion and 90 degrees abduction with endpoints limited by pain left knee: dressing changed. Incision CDI. knee nonerythematous. extension to 0 , flexion to 90 degrees endpoints limited by pain Assessment: []s/p right shoulder and left knee I&D Plan: [ Continue ancef/rifampin per ID PT/OT - encourage to get up out of bed, progress towards walking when safe to do so Dressing changes to knee and shoulder every other day CRP trending down.
--- NOTE | 2017-05-27 21:15 | PN ---
Progress Note - Progress Note Date of Service: 05/27/17 SOAP: Subjective: [] Patient seen earlier today. No events ON. Tolerates po. On Abx IV. No drainage from wound. Objective: []SS Afebrile Wound s,c,d, No discharge on dressing. No redness, No active drainage. AAOx2, RADHA, Face symmetric, tongue midline. Nichole spontaneously, Follows command. 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 Can bend both knees 3-4/5, Exam limited due to mental status, previous surgical interventions. Sensory grossly intact to light touch Assessment: []76 yom multilevel laminectomies for holospinal epidural abscess Plan: []Monitor VS, Neurochecks. Monitor wound. Keep incision clean.Patient has episodes of bowel movements, has encephalopathy. Continue with regular dressing changes daily and consider aquaseal if needed. Monitor labs. Keep sutures for 6 weeks. PT/OT when able to participate. Abx per ID Discussed with family two days ago. Appreciate ID, IM, Orthopedic care. Armond Melendrez MD
[2017-05-28] MEDS: NS 0.9% IVPB SCH ×3 (00:31→17:16)
[2017-05-28] MEDS: CEFAZOLIN IVPB SCH ×3 (00:31→17:16)
[2017-05-28] MEDS: Ondansetron INJ* 2 MG/ML VIAL IV PRN (04:49)
[2017-05-28 06:17] LABS: EGFR Non-African American 139.7 (>60)
[2017-05-28] MEDS: Potassium Chloride LIQUID* 20 MEQ PACKET PO SCH (07:50)
[2017-05-28] MEDS: Multivitamins ADULT w/MIN LIQ* 15 ML UDC PO SCH (07:53)
[2017-05-28] MEDS: CMCS: Nebivolol TAB (NF) 2.5 MG TAB PO SCH (07:53)
[2017-05-28] MEDS: Thiamine TAB* 100 MG TAB PO SCH (07:54)
[2017-05-28] MEDS: Polyethylene Glycol 3350* 17 GM PACKET PO SCH (07:54)
[2017-05-28] MEDS: RiFAMPin CAP* 300 MG CAP PO SCH ×2 (07:54→22:23)
[2017-05-28] MEDS: amLODIPine TAB* 5 MG PO SCH (07:54)
[2017-05-28] MEDS: Allopurinol TAB* 100 MG PO SCH (07:54)
[2017-05-28] MEDS: Magnesium Oxide TAB* 400 MG PO SCH (07:54)
--- NOTE | 2017-05-28 14:44 | PN ---
Progress Note - Progress Note Date of Service: 05/28/17 SOAP: Subjective: 76 y/o s/p multiple washouts of R shoulder, L knee. Patient more verbal, states has pain, however non-sensical. VSS, afebrile overnight. Objective: General- Well appearing, NAD, AO sitting in chair comfortably. MSK- LLE- DF/PF = b/l, PT 2+, negative homans sign, dressing removed- sutures are in place, no erythema, drainage noted. ROM 7-90 Shoulder- Right- incisions c/d/i. non-tender to palpation. Vital Signs Temp 98.8 F 05/28/17 12:26 Pulse 75 05/28/17 12:26 Resp 18 05/28/17 12:26 BP 152/72 05/28/17 07:15 Pulse Ox 100 05/28/17 12:26 Intake & Output 05/27/17 05/28/17 05/28/17 18:59 06:59 18:59 Intake Total 610 1016 20 Balance 610 1016 20 Intake: IV Fluids 996 NS (0.9%) 27 tpn 969 IVPB 20 20 ABX - CEFAZOLIN 20 20 Oral 610 0 Other: Estimated Void Large Large # Bowel Movements 1 2 Estimated Stool Amount Small Medium # Voids 3 1 Assessment: Stable s/p multiple washouts of R shoulder, L knee. Plan: - DVT prophylaxis- lovenox - Continue PT/ OT - post-op IV ABX per ID. Acetaminophen (Tylenol Tab*) 650 mg PO Q4H PRN PRN Reason: FEVER Last Admin: 05/27/17 10:15 Dose: 650 mg Allopurinol (Zyloprim Tab*) 100 mg PO QAM [facility] Last Admin: 05/28/17 07:54 Dose: 100 mg Amlodipine Besylate (Norvasc Tab*) 5 mg PO DAILY [facility] Last Admin: 05/28/17 07:54 Dose: 5 mg Atorvastatin Calcium (Lipitor*) 20 mg PO 1700 [facility] Last Admin: 05/27/17 16:57 Dose: 20 mg Bisacodyl (Dulcolax Supp*) 10 mg [place] DAILY PRN PRN Reason: CONSTIPATION Last Admin: 05/19/17 11:07 Dose: 10 mg Docusate Sodium (Colace Cap*) 100 mg PO DAILY PRN PRN Reason: CONSTIPATION Last Admin: 05/18/17 16:48 Dose: 100 mg Haloperidol Lactate (Haldol Inj Iv/Im*) 5 mg IV SLOW PU Q6H PRN PRN Reason: AGITATION Last Admin: 05/25/17 22:20 Dose: 5 mg Heparin Sodium (Porcine) (Heparin Flush Picc/Ml/Cvc(*)) 1 - 3 ml FLUSH 0600, 1800 [facility] PRN Reason: Protocol Last Admin: 05/28/17 05:55 Dose: 1 ml Hydralazine HCl (Apresoline Iv*) 10 mg IV Q4H PRN PRN Reason: Systolic >170 Last Admin: 05/26/17 17:06 Dose: 10 mg Cefazolin Sodium 2 gm/ Sodium (Chloride) 20 mls @ 60 mls/hr IVPB 0100,0900, 1700 [facility] Last Admin: 05/28/17 08:55 Dose: 60 mls/hr Dextrose 500 ml/ Amino Acids 850 ml/ Sterile Water 150 ml/Fat Emulsion Intravenous 250 ml/ Sodium Chloride 100 meq/Potassium Chloride 50 meq/Potassium Phosphate 15 mmole/Calcium Gluconate 15 meq/Magnesium Sulfate 20 meq/ Multivitamins 10 ml/ Trace Metals 1 ml/ Phytonadione 0.2 mg/ Nutrition ( Parenteral) 1,853.2841 mls @ 77.22 mls/hr CENTR 1700 [facility] PRN Reason: Protocol Last Admin: 05/27/17 16:58 Dose: 77.22 mls/hr Magnesium Hydroxide (Milk Of Magnesia Liq*) 30 ml PO Q4H PRN PRN Reason: CONSTIPATION Last Admin: 05/19/17 11:05 Dose: 30 ml Nebivolol (Bystolic Tab (Nf)) 10 mg PO QAM [facility] Last Admin: 05/28/17 07:53 Dose: 10 mg Ondansetron HCl (Zofran Inj*) 4 mg IV Q6H PRN PRN Reason: NAUSEA/VOMITING Last Admin: 05/28/17 04:49 Dose: 4 mg Polyethylene Glycol/Electrolytes (Miralax*) 17 gm PO DAILY [facility] Last Admin: 05/28/17 07:54 Dose: 17 gm Polyvinyl Alcohol (Polyvinyl Alcohol 1.4% Opth*) 1 drop BOTH EYES Q2H PRN PRN Reason: DRY EYE Last Admin: 05/20/17 16:53 Dose: 1 drop Rifampin (Rifampin Cap*) 300 mg PO BID [facility] Last Admin: 05/28/17 07:54 Dose: 300 mg Sodium Biphosphate/Sodium Phosphate (Fleet Enema*) 1 bottle [place] DAILY PRN PRN Reason: CONSTIPATION Thiamine HCl (Vitamin B-1 Tab*) 100 mg PO DAILY [facility] Last Admin: 05/28/17 07:54 Dose: 100 mg
--- NOTE | 2017-05-28 16:46 | PN ---
Subjective Date of Service: 05/28/17 Interval History: HOSPITALIST PROGRESS NOTE Patient seen and examined at bedside. Care reviewed and d/w with his RN Latisha Morales. His confusion is unchanged. He offers no complaints at this time, tells me he would want some chocolate. Family History: Unchanged from Admission Social History: Unchanged from Admission Past Medical History: Unchanged from Admission Objective Active Medications: Acetaminophen (Tylenol Tab*) 650 mg PO Q4H PRN PRN Reason: FEVER Last Admin: 05/27/17 10:15 Dose: 650 mg Allopurinol (Zyloprim Tab*) 100 mg PO QAM [facility] Last Admin: 05/28/17 07:54 Dose: 100 mg Amlodipine Besylate (Norvasc Tab*) 5 mg PO DAILY [facility] Last Admin: 05/28/17 07:54 Dose: 5 mg Atorvastatin Calcium (Lipitor*) 20 mg PO 1700 [facility] Last Admin: 05/27/17 16:57 Dose: 20 mg Bisacodyl (Dulcolax Supp*) 10 mg IN DAILY PRN PRN Reason: CONSTIPATION Last Admin: 05/19/17 11:07 Dose: 10 mg Docusate Sodium (Colace Cap*) 100 mg PO DAILY PRN PRN Reason: CONSTIPATION Last Admin: 05/18/17 16:48 Dose: 100 mg Haloperidol Lactate (Haldol Inj Iv/Im*) 5 mg IV SLOW PU Q6H PRN PRN Reason: AGITATION Last Admin: 05/25/17 22:20 Dose: 5 mg Heparin Sodium (Porcine) (Heparin Flush Picc/Ml/Cvc(*)) 1 - 3 ml FLUSH 0600, 1800 [facility] PRN Reason: Protocol Last Admin: 05/28/17 05:55 Dose: 1 ml Hydralazine HCl (Apresoline Iv*) 10 mg IV Q4H PRN PRN Reason: Systolic >170 Last Admin: 05/26/17 17:06 Dose: 10 mg Cefazolin Sodium 2 gm/ Sodium (Chloride) 20 mls @ 60 mls/hr IVPB 0100,0900, 1700 [facility] Last Admin: 05/28/17 08:55 Dose: 60 mls/hr Dextrose 500 ml/ Amino Acids 850 ml/ Sterile Water 150 ml/Fat Emulsion Intravenous 250 ml/ Sodium Chloride 100 meq/Potassium Chloride 50 meq/Potassium Phosphate 15 mmole/Calcium Gluconate 15 meq/Magnesium Sulfate 20 meq/ Multivitamins 10 ml/ Trace Metals 1 ml/ Phytonadione 0.2 mg/ Nutrition ( Parenteral) 1,853.2841 mls @ 77.22 mls/hr CENTR 1700 [facility] PRN Reason: Protocol Last Admin: 05/27/17 16:58 Dose: 77.22 mls/hr Magnesium Hydroxide (Milk Of Magnesia Liq*) 30 ml PO Q4H PRN PRN Reason: CONSTIPATION Last Admin: 05/19/17 11:05 Dose: 30 ml Nebivolol (Bystolic Tab (Nf)) 10 mg PO QAM [facility] Last Admin: 05/28/17 07:53 Dose: 10 mg Ondansetron HCl (Zofran Inj*) 4 mg IV Q6H PRN PRN Reason: NAUSEA/VOMITING Last Admin: 05/28/17 04:49 Dose: 4 mg Polyethylene Glycol/Electrolytes (Miralax*) 17 gm PO DAILY [facility] Last Admin: 05/28/17 07:54 Dose: 17 gm Polyvinyl Alcohol (Polyvinyl Alcohol 1.4% Opth*) 1 drop BOTH EYES Q2H PRN PRN Reason: DRY EYE Last Admin: 05/20/17 16:53 Dose: 1 drop Rifampin (Rifampin Cap*) 300 mg PO BID [facility] Last Admin: 05/28/17 07:54 Dose: 300 mg Sodium Biphosphate/Sodium Phosphate (Fleet Enema*) 1 bottle IN DAILY PRN PRN Reason: CONSTIPATION Thiamine HCl (Vitamin B-1 Tab*) 100 mg PO DAILY [facility] Last Admin: 05/28/17 07:54 Dose: 100 mg Vital Signs - 8 hr 05/28/17 05/28/17 05/28/17 12:26 15:25 15:31 Temperature 98.8 F 98.4 F Pulse Rate 75 81 Respiratory 18 19 Rate Blood Pressure 153/79 (mmHg) O2 Sat by Pulse 100 100 Oximetry 05/28/17 15:35 Temperature Pulse Rate Respiratory Rate Blood Pressure (mmHg) O2 Sat by Pulse 100 Oximetry Oxygen Devices in Use Now: None Appearance: Elderly male lying in bed in NAD. Eyes: No Scleral Icterus Ears/Nose/Mouth/Throat: Mucous Membranes Moist Neck: Trachea Midline Respiratory: Symmetrical Chest Expansion and Respiratory Effort, Clear to Auscultation Cardiovascular: NL Sounds; No Murmurs; No JVD, RRR Neurological: - - AAOx1 (self only) Result Diagrams: 05/24/17 07:15 05/28/17 05:45 Assess/Plan/Problems-Billing Assessment: Mr Bonilla is a 76 yo M with h/o HTN, multiple joint replacements, GI bleed (and partial colon resection due to bleed) who presented to the ER with c/o fever and severe back pain and was ultimately found to have a very large epidural abscess/septic joints, R septic shoulder, L septic knee, right psoas abscess s/ p drainage in the setting of MSSA bacteremia with stay complicated by delirium. 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 - Blood cultures have been negative since 05/09/17. - Continue rifampin and ancef day 35/[address] Franklin. (2) Encephalopathy Comment: - Likely associated with infection, but prolonged and worsened by recent anesthesia. (3) HTN (hypertension) Comment: - Controlled. - Continue nebivolol 10mg daily and amlodipine 5mg daily. (4) Severe protein-calorie malnutrition Comment: - Has lost 30lbs since admission. - Prealbumin <3. - Continue TPN (started 05/24/17). (5) DVT prophylaxis Comment: - SQ heparin. (6) Full code status Status and Disposition: Inpatient for extensive MSSA infection management.
[2017-05-28] MEDS: Atorvastatin* 20 MG TAB PO SCH (17:16)
[2017-05-28] MEDS: TPN* 24 HR with Dextrose 50% Water* 500 ML, Amino Acid Infusion 10%* 850 ML, Sterile Wa... CENTR SCH ×13 (17:27)
[2017-05-28] MEDS: hydrALAZINE IV* 20 MG/ML VIAL IV PRN (19:38)
[2017-05-28] MEDS: Acetaminophen TAB* 325 MG PO PRN (19:39)
[2017-05-29] MEDS: NS 0.9% IVPB SCH ×3 (00:58→17:18)
[2017-05-29] MEDS: CEFAZOLIN IVPB SCH ×3 (00:58→17:18)
[2017-05-29 06:01] LABS: EGFR Non-African American 129.2 (>60)
[2017-05-29] MEDS: Thiamine TAB* 100 MG TAB PO SCH (08:34)
[2017-05-29] MEDS: amLODIPine TAB* 5 MG PO SCH (08:34)
[2017-05-29] MEDS: Allopurinol TAB* 100 MG PO SCH (08:34)
[2017-05-29] MEDS: Polyethylene Glycol 3350* 17 GM PACKET PO SCH (08:34)
[2017-05-29] MEDS: CMCS: Nebivolol TAB (NF) 2.5 MG TAB PO SCH (08:34)
[2017-05-29] MEDS: RiFAMPin CAP* 300 MG CAP PO SCH ×2 (08:34→20:17)
[2017-05-29 08:39] LABS: ABS Basophils 0 10^3/ul (0-0.2); ABS Eosinophils 0.3 10^3/ul (0-0.6); ABS Lymphocytes 0.8 10^3/ul (1.0-4.8); ABS Monocytes 0.8 10^3/ul (0-0.8); ABS Neutrophils 4.5 10^3/ul (1.5-7.7); ABS Nucleated RBC 0 10^3/ul; Eosinophil % 4.3 % (0-6); Hematocrit 20 % (42-52); Hemoglobin 6.9 g/dl (14.0-18.0); Mean Corpuscular HGB Conc 35 g/dl (31-36); Mean Corpuscular Hemoglobin 32 pg (27-31); Mean Corpuscular Volume 92 fL (80-94); Mean Platelet Volume 7.4 um3 (7.4-10.4); Nucleated Red Blood Cells % 0; Platelet Count 238 10^3/ul (150-450); Red Blood Count 2.15 10^6/ul (4.0-5.4); Red Cell Distribution Width 17 % (10.5-15); White Blood Count 6.4 10^3/ul (3.5-10.8)
--- NOTE | 2017-05-29 10:07 | PN ---
Progress Note - Progress Note Date of Service: 05/29/17 SOAP: Subjective: POD #8 Left knee and right shoulder I&D. Pt doing ok, no c/o pain. Objective: Vitals: Temp Pulse Resp BP Pulse Ox 97.3 F 76 20 116/59 96 05/29/17 07:35 05/29/17 07:35 05/29/17 08:00 05/29/17 07:35 05/29/17 07:35 Gen: Alert but confused, unchanged from previous according to nursing LLE: Dressing C/D/I, c/o some pain with passive motion of knee. +f/e at ankle and MTPs. DP 2+ RUE: Dressing C/D/I. No significant pain with passive motion of shoulder. +f/e at elbow and fingers. Radial pulse 2+ Labs: Laboratory Results - last 24 hr 05/28/17 05/28/17 05/28/17 12:26 16:05 19:44 WBC RBC Hgb Hct MCV MCH MCHC RDW Plt Count MPV Neut % (Auto) Lymph % (Auto) [place] % (Auto) Eos % (Auto) Baso % (Auto) Absolute Neuts (auto) Absolute Lymphs (auto) Absolute Monos (auto) Absolute Eos (auto) Absolute Basos (auto) Absolute Nucleated RBC Nucleated RBC % Sodium Potassium Chloride Carbon Dioxide Anion Gap BUN Creatinine Est GFR ( Amer) Est GFR (Non-Af Amer) BUN/Creatinine Ratio Glucose POC Glucose (mg/dL) 135 H 128 H 140 H Calcium Ammonia 05/29/17 05/29/17 05/29/17 01:06 05:10 05:22 WBC RBC Hgb Hct MCV MCH MCHC RDW Plt Count MPV Neut % (Auto) Lymph % (Auto) [place] % (Auto) Eos % (Auto) Baso % (Auto) Absolute Neuts (auto) Absolute Lymphs (auto) Absolute Monos (auto) Absolute Eos (auto) Absolute Basos (auto) Absolute Nucleated RBC Nucleated RBC % Sodium 134 L Potassium 4.4 Chloride 108 Carbon Dioxide 20 L Anion Gap 6 BUN 17 Creatinine 0.61 L Est GFR ( Amer) 166.2 Est GFR (Non-Af Amer) 129.2 BUN/Creatinine Ratio 27.9 H Glucose 96 POC Glucose (mg/dL) 153 H 132 H Calcium 8.1 L Ammonia 05/29/17 05/29/17 05/29/17 08:04 08:30 08:30 WBC 6.4 RBC 2.15 L Hgb 6.9 L Hct 20 L MCV 92 MCH 32 H MCHC 35 RDW 17 H Plt Count 238 MPV 7.4 Neut % (Auto) 70.2 Lymph % (Auto) 12.0 L [place] % (Auto) 13.1 H Eos % (Auto) 4.3 Baso % (Auto) 0.4 Absolute Neuts (auto) 4.5 Absolute Lymphs (auto) 0.8 L Absolute Monos (auto) 0.8 Absolute Eos (auto) 0.3 Absolute Basos (auto) 0 Absolute Nucleated RBC 0 Nucleated RBC % 0 Sodium Potassium Chloride Carbon Dioxide Anion Gap BUN Creatinine Est GFR ( Amer) Est GFR (Non-Af Amer) BUN/Creatinine Ratio Glucose POC Glucose (mg/dL) 138 H Calcium Ammonia 46 Assessment: POD #8 Left knee and right shoulder I&D Plan: Cont IV abx per ID Dressings to be changed tomorrow Will continue to follow
[2017-05-29] MEDS ORDERED: Iohexol 300* (CONTRAST) 10 ML SDV IV ONE (11:43)
--- NOTE | 2017-05-29 11:55 | RAD ---
INDICATION: Septicemia, worsening confusion. COMPARISON: Comparison is made with a prior CT of the brain from May 05, 2017. TECHNIQUE: Contiguous axial sections of the brain were obtained from the skull base to the vertex without and with contrast following intravenous injection of 75 ml of Omnipaque 300 nonionic contrast. FINDINGS: The ventricles, cisterns and sulci are enlarged consistent with diffuse atrophy. No significant focal abnormality or mass effect is seen. There is no evidence for hemorrhage. No abnormal enhancement is present. No significant focal osseous abnormality is present. The visualized portion of the paranasal sinuses and mastoid air cells appear clear. IMPRESSION: NO EVIDENCE FOR ACUTE INTRACRANIAL ABNORMALITY.
[2017-05-29] MEDS: Thiamine IV* 500 MG in NS 0.9% 250 ML* 250 ML IV SCH ×2 (12:04→18:58)
[2017-05-29] MEDS: Acetaminophen TAB* 325 MG PO PRN ×2 (16:13→20:17)
--- NOTE | 2017-05-29 16:34 | PN ---
Subjective Date of Service: 05/29/17 Interval History: HOSPITALIST PROGRESS NOTE Patient seen and examined at bedside. Care reviewed and d/w his RN Latisha Morales. Mr. Bonilla is more lethargic today. He wakes up when I touch him and confusion appears to be unchanged. C/o pain, but cannot pinpoint where. Family History: Unchanged from Admission Social History: Unchanged from Admission Past Medical History: Unchanged from Admission Objective Active Medications: Acetaminophen (Tylenol Tab*) 650 mg PO Q4H PRN PRN Reason: FEVER Last Admin: 05/29/17 16:13 Dose: 650 mg Allopurinol (Zyloprim Tab*) 100 mg PO QAM [facility] Last Admin: 05/29/17 08:34 Dose: 100 mg Amlodipine Besylate (Norvasc Tab*) 5 mg PO DAILY [facility] Last Admin: 05/29/17 08:34 Dose: 5 mg Atorvastatin Calcium (Lipitor*) 20 mg PO 1700 [facility] Last Admin: 05/28/17 17:16 Dose: 20 mg Bisacodyl (Dulcolax Supp*) 10 mg CO DAILY PRN PRN Reason: CONSTIPATION Last Admin: 05/19/17 11:07 Dose: 10 mg Docusate Sodium (Colace Cap*) 100 mg PO DAILY PRN PRN Reason: CONSTIPATION Last Admin: 05/18/17 16:48 Dose: 100 mg Haloperidol Lactate (Haldol Inj Iv/Im*) 5 mg IV SLOW PU Q6H PRN PRN Reason: AGITATION Last Admin: 05/25/17 22:20 Dose: 5 mg Heparin Sodium (Porcine) (Heparin Flush Picc/Ml/Cvc(*)) 1 - 3 ml FLUSH 0600, 1800 [facility] PRN Reason: Protocol Last Admin: 05/29/17 05:20 Dose: 2 ml Hydralazine HCl (Apresoline Iv*) 10 mg IV Q4H PRN PRN Reason: Systolic >170 Last Admin: 05/28/17 19:38 Dose: 10 mg Cefazolin Sodium 2 gm/ Sodium (Chloride) 20 mls @ 60 mls/hr IVPB 0100,0900, 1700 [facility] Last Admin: 05/29/17 09:46 Dose: 60 mls/hr Dextrose 500 ml/ Amino Acids 850 ml/ Sterile Water 150 ml/Fat Emulsion Intravenous 250 ml/ Sodium Chloride 100 meq/Potassium Chloride 50 meq/Potassium Phosphate 15 mmole/Calcium Gluconate 15 meq/Magnesium Sulfate 20 meq/ Multivitamins 10 ml/ Trace Metals 1 ml/ Phytonadione 0.2 mg/ Nutrition ( Parenteral) 1,853.2841 mls @ 77.22 mls/hr CENTR 1700 [facility] PRN Reason: Protocol Last Admin: 05/28/17 17:27 Dose: 77.22 mls/hr Thiamine HCl 500 mg/ Sodium (Chloride) 255 mls @ 255 mls/hr IV Q8H [facility] Stop: 05/31/17 08:59 Last Admin: 05/29/17 12:04 Dose: 255 mls/hr Thiamine HCl 250 mg/ Sodium (Chloride) 102.5 mls @ 205 mls/hr IV DAILY [facility] PRN Reason: Protocol Stop: 06/05/17 08:59 Magnesium Hydroxide (Milk Of Magnjim Liq*) 30 ml PO Q4H PRN PRN Reason: CONSTIPATION Last Admin: 05/19/17 11:05 Dose: 30 ml Nebivolol (Bystolic Tab (Nf)) 10 mg PO QAM [facility] Last Admin: 05/29/17 08:34 Dose: 10 mg Ondansetron HCl (Zofran Inj*) 4 mg IV Q6H PRN PRN Reason: NAUSEA/VOMITING Last Admin: 05/28/17 04:49 Dose: 4 mg Polyethylene Glycol/Electrolytes (Miralax*) 17 gm PO DAILY [facility] Last Admin: 05/29/17 08:34 Dose: 17 gm Polyvinyl Alcohol (Polyvinyl Alcohol 1.4% Opth*) 1 drop BOTH EYES Q2H PRN PRN Reason: DRY EYE Last Admin: 05/20/17 16:53 Dose: 1 drop Rifampin (Rifampin Cap*) 300 mg PO BID [facility] Last Admin: 05/29/17 08:34 Dose: 300 mg Sodium Biphosphate/Sodium Phosphate (Fleet Enema*) 1 bottle CO DAILY PRN PRN Reason: CONSTIPATION Thiamine HCl (Vitamin B-1 Tab*) 100 mg PO DAILY [facility] Last Admin: 05/29/17 08:34 Dose: 100 mg Vital Signs - 8 hr 05/29/17 05/29/17 05/29/17 10:52 15:59 16:00 Temperature 98.5 F 101.3 F Pulse Rate 75 77 Respiratory 19 16 Rate Blood Pressure 122/61 140/90 (mmHg) O2 Sat by Pulse 97 99 99 Oximetry Oxygen Devices in Use Now: None Appearance: Elderly gentleman, appears older than stated age, lying in bed in NAD. Eyes: No Scleral Icterus Ears/Nose/Mouth/Throat: Mucous Membranes Moist Neck: Trachea Midline Respiratory: Symmetrical Chest Expansion and Respiratory Effort, Clear to Auscultation Cardiovascular: RRR - Normal S1 and S2 Abdominal: NL Sounds; No Tenderness; No Distention Neurological: - - Lethargic, arousable to touch, Ox1 (self only) Result Diagrams: 05/29/17 08:30 05/29/17 05:22 Assess/Plan/Problems-Billing Assessment: Mr Bonilla is a 76 yo M with h/o HTN, ETOH abuse, multiple joint replacements, GI bleed (and partial colon resection due to bleed) who presented to the ER with c/o fever and severe back pain and was ultimately found to have a very large epidural abscess/septic joints, R septic shoulder, L septic knee, right psoas abscess s/p drainage in the setting of MSSA bacteremia with stay complicated by delirium. 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 - Blood cultures have been negative since 05/09/17. - Continue rifampin and ancef day 36/[address] Franklin. - More lethargic today - check CT brain with contrast. - Fever 101.3 today - will panculture again. (2) Encephalopathy Comment: - Likely multifactorial associated with infection, ETOH, worsened by recent anesthesia. - Will add high dose thiamine for possible Wernicke's. (3) HTN (hypertension) Comment: - Controlled. - Continue nebivolol 10mg daily and amlodipine 5mg daily. (4) Severe protein-calorie malnutrition Comment: - Has lost 30lbs since admission. - Prealbumin <3. - Continue TPN (started 05/24/17). (5) DVT prophylaxis Comment: - SQ heparin. (6) Full code status Status and Disposition: Inpatient for extensive MSSA infection management.
[2017-05-29] MEDS: Atorvastatin* 20 MG TAB PO SCH (17:16)
[2017-05-29] MEDS: TPN* 24 HR with Dextrose 50% Water* 500 ML, Amino Acid Infusion 10%* 850 ML, Sterile Wa... CENTR SCH ×13 (17:18)
[2017-05-29] MEDS: Heparin VIAL(*) 5000 UNITS/ML VIAL (FIVE THOUSAND) SUBCUT SCH (22:14)
[2017-05-30] MEDS: NS 0.9% IVPB SCH ×3 (00:33→17:28)
[2017-05-30] MEDS: CEFAZOLIN IVPB SCH ×3 (00:33→17:28)
[2017-05-30] MEDS: Thiamine IV* 500 MG in NS 0.9% 250 ML* 250 ML IV SCH ×3 (02:02→18:46)
[2017-05-30] MEDS: Heparin VIAL(*) 5000 UNITS/ML VIAL (FIVE THOUSAND) SUBCUT SCH ×3 (05:28→20:41)
[2017-05-30 05:56] LABS: Hematocrit 24 % (42-52); Hemoglobin 8.1 g/dl (14.0-18.0); Mean Corpuscular HGB Conc 34 g/dl (31-36); Mean Corpuscular Hemoglobin 29 pg (27-31); Mean Corpuscular Volume 87 fL (80-94); Mean Platelet Volume 7.6 um3 (7.4-10.4); Platelet Count 261 10^3/ul (150-450); Red Blood Count 2.78 10^6/ul (4.0-5.4); Red Cell Distribution Width 16 % (10.5-15)
[2017-05-30 06:14] LABS: EGFR Non-African American 122.2 (>60)
[2017-05-30 07:19] LABS: ABS Basophils 0 10^3/ul (0-0.2); ABS Eosinophils 0.4 10^3/ul (0-0.6); ABS Lymphocytes 0.8 10^3/ul (1.0-4.8); ABS Monocytes 1.1 10^3/ul (0-0.8); ABS Neutrophils 3.7 10^3/ul (1.5-7.7); ABS Nucleated RBC 0 10^3/ul; Lymphocyte % 13.7 % (25-47); Nucleated Red Blood Cells % 0
[2017-05-30] MEDS: Polyethylene Glycol 3350* 17 GM PACKET PO SCH (09:57)
[2017-05-30] MEDS: Thiamine TAB* 100 MG TAB PO SCH (09:58)
[2017-05-30] MEDS: RiFAMPin CAP* 300 MG CAP PO SCH ×2 (09:58→20:37)
[2017-05-30] MEDS: amLODIPine TAB* 5 MG PO SCH (09:58)
[2017-05-30] MEDS: CMCS: Nebivolol TAB (NF) 2.5 MG TAB PO SCH (09:58)
[2017-05-30] MEDS: Allopurinol TAB* 100 MG PO SCH (09:58)
--- NOTE | 2017-05-30 10:45 | PN ---
Progress Note - Progress Note Date of Service: 05/30/17 SOAP: Subjective: POD #9 Left knee, right shoulder I&D. No changes. Pt remains confused, does not c/o significant pain. Objective: Vitals: Temp Pulse Resp BP Pulse Ox 98.0 F 85 20 126/71 96 /10/09 03:22 05/30/17 07:30 05/30/17 03:22 05/30/17 07:30 05/30/17 07:30 Gen: Alert, confused and not conversing LLE: Incisions healing well with sutures in place, no edema or erythema. +f/e at ankle and MTPs, N/V intact RUE: Incisions healing well with sutures in place, no edema or erythema. No pain with passive ROM, although limited by stiffness. N/V intact Assessment: POD #9 Left knee, right shoulder I&D Plan: New dressings applied today Continue PT/OT Continue abx per ID Dispo per medicine Likely suture removal later this week
--- NOTE | 2017-05-30 15:59 | PN ---
Subjective Date of Service: 05/30/17 Interval History: Tmax 101.3 4pm yesterday. oriented to place but not year. some pain in right shoulder and with urination. on TPN since 05/24, Na 133 got 2 u pRBC. Family History: Unchanged from Admission Social History: Unchanged from Admission Past Medical History: Unchanged from Admission Objective Active Medications: Acetaminophen (Tylenol Tab*) 650 mg PO Q4H PRN PRN Reason: FEVER Last Admin: 05/29/17 20:17 Dose: 650 mg Allopurinol (Zyloprim Tab*) 100 mg PO QAM [facility] Last Admin: 05/30/17 09:58 Dose: 100 mg Amlodipine Besylate (Norvasc Tab*) 5 mg PO DAILY [facility] Last Admin: 05/30/17 09:58 Dose: 5 mg Atorvastatin Calcium (Lipitor*) 20 mg PO 1700 [facility] Last Admin: 05/29/17 17:16 Dose: 20 mg Bisacodyl (Dulcolax Supp*) 10 mg IN DAILY PRN PRN Reason: CONSTIPATION Last Admin: 05/19/17 11:07 Dose: 10 mg Docusate Sodium (Colace Cap*) 100 mg PO DAILY PRN PRN Reason: CONSTIPATION Last Admin: 05/18/17 16:48 Dose: 100 mg Haloperidol Lactate (Haldol Inj Iv/Im*) 5 mg IV SLOW PU Q6H PRN PRN Reason: AGITATION Last Admin: 05/25/17 22:20 Dose: 5 mg Heparin Sodium (Porcine) (Heparin Flush Picc/Ml/Cvc(*)) 1 - 3 ml FLUSH 0600, 1800 [facility] PRN Reason: Protocol Last Admin: 05/30/17 05:28 Dose: 2 ml Heparin Sodium (Porcine) (Heparin Vial(*)) 5,000 units SUBCUT Q8HR [facility] Last Admin: 05/30/17 14:07 Dose: 5,000 units Hydralazine HCl (Apresoline Iv*) 10 mg IV Q4H PRN PRN Reason: Systolic >170 Last Admin: 05/28/17 19:38 Dose: 10 mg Cefazolin Sodium 2 gm/ Sodium (Chloride) 20 mls @ 60 mls/hr IVPB 0100,0900, 1700 [facility] Last Admin: 05/30/17 10:07 Dose: 60 mls/hr Thiamine HCl 500 mg/ Sodium (Chloride) 255 mls @ 255 mls/hr IV Q8H [facility] Stop: 05/31/17 08:59 Last Admin: 05/30/17 11:08 Dose: 255 mls/hr Thiamine HCl 250 mg/ Sodium (Chloride) 102.5 mls @ 205 mls/hr IV DAILY [facility] PRN Reason: Protocol Stop: 06/05/17 08:59 Dextrose 500 ml/ Amino Acids 850 ml/ Sterile Water 150 ml/Fat Emulsion Intravenous 250 ml/ Sodium Chloride 140 meq/Potassium Chloride 50 meq/Potassium Phosphate 15 mmole/Calcium Gluconate 15 meq/Magnesium Sulfate 20 meq/ Multivitamins 10 ml/ Trace Metals 1 ml/ Phytonadione 0.2 mg/ Nutrition ( Parenteral) 1,863.2841 mls @ 77.637 mls/hr CENTR 1700 [facility] PRN Reason: Protocol Magnesium Hydroxide (Milk Of Magnjim Liq*) 30 ml PO Q4H PRN PRN Reason: CONSTIPATION Last Admin: 05/19/17 11:05 Dose: 30 ml Nebivolol (Bystolic Tab (Nf)) 10 mg PO QAM [facility] Last Admin: 05/30/17 09:58 Dose: 10 mg Ondansetron HCl (Zofran Inj*) 4 mg IV Q6H PRN PRN Reason: NAUSEA/VOMITING Last Admin: 05/28/17 04:49 Dose: 4 mg Polyethylene Glycol/Electrolytes (Miralax*) 17 gm PO DAILY [facility] Last Admin: 05/30/17 09:57 Dose: 17 gm Polyvinyl Alcohol (Polyvinyl Alcohol 1.4% Opth*) 1 drop BOTH EYES Q2H PRN PRN Reason: DRY EYE Last Admin: 05/20/17 16:53 Dose: 1 drop Rifampin (Rifampin Cap*) 300 mg PO BID [facility] Last Admin: 05/30/17 09:58 Dose: 300 mg Sodium Biphosphate/Sodium Phosphate (Fleet Enema*) 1 bottle IN DAILY PRN PRN Reason: CONSTIPATION Thiamine HCl (Vitamin B-1 Tab*) 100 mg PO DAILY [facility] Last Admin: 05/30/17 09:58 Dose: 100 mg Vital Signs - 8 hr 05/30/17 11:40 Pulse Rate 78 Blood Pressure 97/54 (mmHg) O2 Sat by Pulse 100 Oximetry Oxygen Devices in Use Now: None Appearance: NAD, chronically ill appearing. Eyes: No Scleral Icterus, PERRLA Ears/Nose/Mouth/Throat: NL Teeth, Lips, Gums Neck: NL Appearance and Movements; NL JVP, Trachea Midline Respiratory: Symmetrical Chest Expansion and Respiratory Effort, Clear to Auscultation Cardiovascular: NL Sounds; No Murmurs; No JVD, RRR Abdominal: NL Sounds; No Tenderness; No Distention, No Hepatosplenomegaly Extremities: No Edema, - - left knee, right shoulder w/o erythema or warmth. right shoulder with reduced active ROM Skin: No Rash or Ulcers Neurological: - - oriented to [facility] and name and but not year(thinks 1960). Nutrition: TPN Result Diagrams: 05/30/17 05:42 05/30/17 05:42 Additional Lab and Data: Laboratory Results - last 24 hr 05/29/17 05/29/17 05/30/17 16:32 21:06 00:39 WBC RBC Hgb Hct MCV MCH MCHC RDW Plt Count MPV Neut % (Auto) Lymph % (Auto) [place] % (Auto) Eos % (Auto) Baso % (Auto) Absolute Neuts (auto) Absolute Lymphs (auto) Absolute Monos (auto) Absolute Eos (auto) Absolute Basos (auto) Absolute Nucleated RBC Nucleated RBC % Sodium Potassium Chloride Carbon Dioxide Anion Gap BUN Creatinine Est GFR ( Amer) Est GFR (Non-Af Amer) BUN/Creatinine Ratio Glucose POC Glucose (mg/dL) 153 H 149 H Calcium Blood Type O Positive Antibody Screen Negative Crossmatch See Detail 05/30/17 05/30/17 05/30/17 05:42 05:42 05:48 WBC 6.0 RBC 2.78 L Hgb 8.1 L Hct 24 L MCV 87 MCH 29 MCHC 34 RDW 16 H Plt Count 261 MPV 7.6 Neut % (Auto) 62.0 Lymph % (Auto) 13.7 L [place] % (Auto) 17.7 H Eos % (Auto) 6.0 Baso % (Auto) 0.6 Absolute Neuts (auto) 3.7 Absolute Lymphs (auto) 0.8 L Absolute Monos (auto) 1.1 H Absolute Eos (auto) 0.4 Absolute Basos (auto) 0 Absolute Nucleated RBC 0 Nucleated RBC % 0 Sodium 133 L Potassium 4.3 Chloride 107 Carbon Dioxide 18 L Anion Gap 8 BUN 17 Creatinine 0.64 L Est GFR ( Amer) 157.2 Est GFR (Non-Af Amer) 122.2 BUN/Creatinine Ratio 26.6 H Glucose 89 POC Glucose (mg/dL) 119 H Calcium 8.2 L Blood Type Antibody Screen Crossmatch 05/30/17 05/30/17 05/30/17 08:30 14:10 17:28 WBC RBC Hgb Hct MCV MCH MCHC RDW Plt Count MPV Neut % (Auto) Lymph % (Auto) [place] % (Auto) Eos % (Auto) Baso % (Auto) Absolute Neuts (auto) Absolute Lymphs (auto) Absolute Monos (auto) Absolute Eos (auto) Absolute Basos (auto) Absolute Nucleated RBC Nucleated RBC % Sodium Potassium Chloride Carbon Dioxide Anion Gap BUN Creatinine Est GFR ( Amer) Est GFR (Non-Af Amer) BUN/Creatinine Ratio Glucose POC Glucose (mg/dL) 133 H 125 H 128 H Calcium Blood Type Antibody Screen Crossmatch Microbiology and Other Data: Microbiology 05/29/17 16:45 Blood Venous Aerobic Blood Culture - Preliminary No Growth Day 1 05/29/17 16:45 Blood Venous Anaerobic Blood Culture - Preliminary No Growth Day 1 05/29/17 16:32 Blood Venous Aerobic Blood Culture - Preliminary No Growth Day 1 05/29/17 16:32 Blood Venous Anaerobic Blood Culture - Preliminary No Growth Day 1 05/21/17 17:58 Wound - Knee Left Anaerobic Culture - Final No Growth Day 4 05/21/17 17:58 Knee Left Gram Stain - Final 05/21/17 17:58 Knee Left Wound Culture - Final No Growth Day 4 05/21/17 16:36 Wound - Shoulder Right Anaerobic Culture - Final No Growth Day 4 05/21/17 16:36 Shoulder Right Gram Stain - Final 05/21/17 16:36 Shoulder Right Wound Culture - Final No Growth Day 4 05/21/17 16:36 Wound - Shoulder Right Anaerobic Culture - Final No Growth Day 4 05/21/17 16:36 Shoulder Right Gram Stain - Final 05/21/17 16:36 Shoulder Right Wound Culture - Final No Growth Day 4 04/23/17 10:30 Misc Source (See Comment) - Other Fungal Culture - Final 05/20/17 05:43 Stool Stool Occult Blood (KEEGAN) - Final 05/14/17 14:30 Misc Fluid (See Comment) - Abscess Gram Stain - Final 05/14/17 14:30 Misc Fluid (See Comment) - Abscess Body Fluid Culture - Final 05/14/17 14:30 Misc Fluid (See Comment) - Abscess Skin and Soft Tissue MRSA/ MSSA (PCR - Final Mrsa Negative S.aureus Positive 05/12/17 01:30 Blood Venous Aerobic Blood Culture - Final No Growth Day 5 05/12/17 01:30 Blood Venous Anaerobic Blood Culture - Final No Growth Day 5 05/12/17 01:30 Blood Venous Aerobic Blood Culture - Final No Growth Day 5 05/12/17 01:30 Blood Venous Anaerobic Blood Culture - Final No Growth Day 5 05/12/17 00:48 Blood Venous Aerobic Blood Culture - Final No Growth Day 5 05/12/17 00:48 Blood Venous Anaerobic Blood Culture - Final No Growth Day 5 05/09/17 17:00 Blood Venous Aerobic Blood Culture - Final No Growth Day 5 05/09/17 17:00 Blood Venous Anaerobic Blood Culture - Final No Growth Day 5 05/09/17 17:00 Blood Venous Aerobic Blood Culture - Final No Growth Day 5 05/09/17 17:00 Blood Venous Anaerobic Blood Culture - Final No Growth Day 5 05/08/17 19:15 Joint Fluid(Synovial) Gram Stain - Final 05/08/17 19:15 Joint Fluid(Synovial) Body Fluid Culture - Final No Growth Day 4 05/08/17 19:15 Joint Fluid(Synovial) Skin and Soft Tissue MRSA/MSSA (PCR - Final Mrsa Negative S.aureus Negative 05/08/17 19:15 Body Fluid Gram Stain - Final 05/08/17 19:15 Body Fluid Body Fluid Culture - Final No Growth Day 4 05/08/17 19:15 Body Fluid Skin and Soft Tissue MRSA/MSSA (PCR - Final Mrsa Negative S.aureus Positive 04/27/17 08:00 Blood Venous Aerobic Blood Culture - Final No Growth Day 5 04/27/17 08:00 Blood Venous Anaerobic Blood Culture - Final No Growth Day 5 04/27/17 06:10 Blood Venous Aerobic Blood Culture - Final Staphylococcus Epidermidis 04/27/17 06:10 Blood Venous Anaerobic Blood Culture - Final No Growth Day 5 04/27/17 06:10 Blood Venous Blood MRSA/MSSA (PCR) - Final Mrsa Negative S.aureus Negative 04/26/17 21:00 Wound - Wound Anaerobic Culture - Final 04/26/17 21:00 Wound - Wound Skin and Soft Tissue MRSA/MSSA (PCR - Final Mrsa Negative S.aureus Positive 04/26/17 21:00 Wound - Wound Gram Stain - Final 04/26/17 21:00 Wound - Wound Wound Culture - Final Staphylococcus Aureus 04/23/17 15:53 Wound - Knee Left Anaerobic Culture - Final 04/23/17 15:53 Wound - Knee Left Skin and Soft Tissue MRSA/MSSA (PCR - Final Mrsa Negative S.aureus Positive 04/23/17 15:53 Wound - Knee Left Gram Stain - Final 04/23/17 15:53 Wound - Knee Left Wound Culture - Final Staphylococcus Aureus 04/23/17 10:30 Joint Fluid(Synovial) - Knee Left Gram Stain - Final 04/23/17 10:30 Joint Fluid(Synovial) - Knee Left Body Fluid Culture - Final Staphylococcus Aureus 04/23/17 10:30 Joint Fluid(Synovial) - Knee Left Skin and Soft Tissue MRSA/ MSSA (PCR - Final Mrsa Negative S.aureus Positive 04/22/17 16:56 Wound - Abscess Anaerobic Culture - Final 04/22/17 16:56 Wound - Abscess Skin and Soft Tissue MRSA/MSSA (PCR - Final Mrsa Negative S.aureus Positive 04/22/17 16:56 Wound - Abscess Gram Stain - Final 04/22/17 16:56 Wound - Abscess Wound Culture - Final Staphylococcus Aureus 04/22/17 15:00 Wound - Other Anaerobic Culture - Final 04/22/17 15:00 Misc Source (See Comment) - Other Skin and Soft Tissue MRSA/ MSSA (PCR - Final Mrsa Negative S.aureus Positive 04/22/17 15:00 Misc Source (See Comment) - Other Gram Stain - Final 04/22/17 15:00 Misc Source (See Comment) - Other Wound Culture - Final Staphylococcus Aureus 04/21/17 05:40 Blood Venous Aerobic Blood Culture - Final Staphylococcus Aureus 04/21/17 05:40 Blood Venous Anaerobic Blood Culture - Final Staphylococcus Aureus 04/21/17 05:40 Blood Venous Blood MRSA/MSSA (PCR) - Final Mrsa Negative S.aureus Positive 04/21/17 04:40 Blood Venous Aerobic Blood Culture - Final Staphylococcus Aureus 04/21/17 04:40 Blood Venous Anaerobic Blood Culture - Final Staphylococcus Aureus 04/21/17 04:40 Blood Venous Blood MRSA/MSSA (PCR) - Final Mrsa Negative S.aureus Positive 04/22/17 06:20 Nasal Nasal Screen MRSA (PCR)(KEEGAN) - Final Mrsa Not Detected Assess/Plan/Problems-Billing Assessment: 76 yo M with h/o HTN, ETOH abuse, multiple joint replacements, GI bleed (and partial colon resection due to bleed) who presented to the ER with c/o fever and severe back pain and was ultimately found to have a very large epidural abscess/septic joints, R septic shoulder, L septic knee, right psoas abscess s/ p drainage in the setting of MSSA bacteremia with stay complicated by delirium. - Patient Problems (1) Encephalopathy Current Visit: Yes Status: Acute Code(s): G93.40 - ENCEPHALOPATHY, UNSPECIFIED SNOMED Code(s): 44785769 Comment: - multifactorial associated with infection. 4-5 beers daily prior to admission, now on high dose thiamine for possible Wernicke's. Has not made much progress. (2) Epidural abscess Current Visit: Yes Status: Acute Code(s): G06.2 - EXTRADURAL AND SUBDURAL ABSCESS, UNSPECIFIED SNOMED Code(s): 84333400 Comment: The patient presented with a very large epidural abscess with associated septic arthristis He underwent multilevel skip laminectomies from C6 -7- L5 on 04/22/17. Continue rifampin and ancef per Dr. Franklin. consider repeat CT or MRI imaging given known paraspinal fluid collections that were not able to be attempted to drain on 05/14. trending CRP. intermittent fevers and continued encephalopathy. (3) MSSA bacteremia Current Visit: Yes Status: Acute Code(s): R78.81 - BACTEREMIA SNOMED Code( s): 374505280 Comment: (4) Septic arthritis of knee, left Current Visit: Yes Status: Acute Code(s): M00.9 - PYOGENIC ARTHRITIS, UNSPECIFIED SNOMED Code(s): 032009786 Comment: The patient is s/p washout/debridement and liner exchange of the left knee total arthroplasty 04/23/17, Left knee aspiration on 05/08/17 and repeat washout 05/21 Cultures negative from last washouts Continue ancef and rifampin (5) Septic arthritis of shoulder, right Current Visit: Yes Status: Acute Code(s): M00.9 - PYOGENIC ARTHRITIS, UNSPECIFIED SNOMED Code(s): 65147894 Comment: The patient is s/p washout/debridement of R shoulder 04/26/17 and washout 05/21 Cultures negative from last washouts Continue ancef and rifampin. (6) DVT prophylaxis Current Visit: Yes Status: Acute Code(s): JPI9885 - SNOMED Code(s): 955169493 Comment: - SQ heparin. (7) Gout Current Visit: Yes Status: Acute Code(s): M10.9 - GOUT, UNSPECIFIED SNOMED Code(s): 95172466 Comment: allopurinol (8) Anemia Current Visit: Yes Status: Acute Code(s): D64.9 - ANEMIA, UNSPECIFIED SNOMED Code(s): 990700702 Comment: anemia of chronic disease. has required transfusions. (9) Debility Current Visit: Yes Status: Acute Code(s): R53.81 - OTHER MALAISE SNOMED Code(s): 38804496 Comment: He will need STR. (10) Severe protein-calorie malnutrition Current Visit: Yes Status: Acute Code(s): E43 - UNSPECIFIED SEVERE PROTEIN- CALORIE MALNUTRITION SNOMED Code(s): 481542266 Comment: - Prealbumin <3. - Continue TPN (started 05/24/17) but very cautious in setting of likely continued infection. Status and Disposition: Inpatient for extensive MSSA infection management.
[2017-05-30] MEDS ORDERED: TPN* 24 HR with Dextrose 50% Water* 500 ML, Amino Acid Infusion 10%* 850 ML, Sterile Wa... CENTR SCH ×13 (17:00)
[2017-05-30] MEDS: Atorvastatin* 20 MG TAB PO SCH (17:28)
[2017-05-30 18:43] LABS: Urine Appearance Clear; Urine Blood Negative (Negative); Urine Color Amber; Urine Ketones Negative (Negative); Urine Protein Negative (Negative); Urine Specific Gravity 1.013 (1.010-1.030); Urine Urobilinogen Negative (Negative)
[2017-05-31] MEDS: CEFAZOLIN IVPB SCH ×3 (01:33→17:51)
[2017-05-31] MEDS: NS 0.9% IVPB SCH ×3 (01:33→17:51)
[2017-05-31] MEDS: Thiamine IV* 500 MG in NS 0.9% 250 ML* 250 ML IV SCH (03:02)
[2017-05-31 05:26] LABS: Hematocrit 25 % (42-52); Hemoglobin 8.3 g/dl (14.0-18.0); Mean Corpuscular HGB Conc 34 g/dl (31-36); Mean Corpuscular Hemoglobin 29 pg (27-31); Mean Corpuscular Volume 87 fL (80-94); Mean Platelet Volume 7.7 um3 (7.4-10.4); Platelet Count 273 10^3/ul (150-450); Red Blood Count 2.84 10^6/ul (4.0-5.4); Red Cell Distribution Width 16 % (10.5-15)
[2017-05-31 05:36] LABS: ABS Basophils 0 10^3/ul (0-0.2); ABS Eosinophils 0.4 10^3/ul (0-0.6); ABS Lymphocytes 0.9 10^3/ul (1.0-4.8); ABS Monocytes 1.1 10^3/ul (0-0.8); ABS Neutrophils 3.6 10^3/ul (1.5-7.7)
[2017-05-31 05:43] LABS: EGFR Non-African American 148.7 (>60)
[2017-05-31 06:15] LABS: ABS Nucleated RBC 0 10^3/ul; Eosinophil % 6.9 % (0-6); Lymphocyte % 14.8 % (25-47); Nucleated Red Blood Cells % 0
[2017-05-31] MEDS: Heparin VIAL(*) 5000 UNITS/ML VIAL (FIVE THOUSAND) SUBCUT SCH ×3 (07:50→21:57)
[2017-05-31] MEDS ORDERED: Thiamine IV* 100 MG/ML 2 ML VIAL IV SCH (09:00)
[2017-05-31] MEDS: CMCS: Nebivolol TAB (NF) 2.5 MG TAB PO SCH (09:45)
[2017-05-31] MEDS: amLODIPine TAB* 5 MG PO SCH (09:46)
--- NOTE | 2017-05-31 11:00 | PN ---
Progress Note - Progress Note Date of Service: 05/31/17 SOAP: Subjective: 76 y/o male s/p multiple R shoulder, L knee washouts. Patient believes in [facility], [facility] name, . reports pain all over from daughter working him too hard in the garage today. VSS afebrile overnight. Objective: General- Well appearing, NAD AO resting in chair comfortably, answers questions however non-sensically mainly. MSK- L knee- ROM 3-90 PROM, pain at endpoints, non-tender to palpation, neg homans, sutures intact R SHoulder- sutures in place, no drainage, erythema noted. ROm FF 120, abd 90 with pain PROM Assessment: STable L knee, R shoulder washout 05/22 Plan: - Sutures to be removed at end of week - Continue IV ABX per ID - Continue PT - Continue to monitor Acetaminophen (Tylenol Tab*) 650 mg PO Q4H PRN PRN Reason: FEVER Last Admin: 05/29/17 20:17 Dose: 650 mg Allopurinol (Zyloprim Tab*) 100 mg PO QAM [facility] Last Admin: 05/30/17 09:58 Dose: 100 mg Amlodipine Besylate (Norvasc Tab*) 5 mg PO DAILY [facility] Last Admin: 05/31/17 09:46 Dose: 5 mg Atorvastatin Calcium (Lipitor*) 20 mg PO 1700 [facility] Last Admin: 05/30/17 17:28 Dose: 20 mg Bisacodyl (Dulcolax Supp*) 10 mg MT DAILY PRN PRN Reason: CONSTIPATION Last Admin: 05/19/17 11:07 Dose: 10 mg Docusate Sodium (Colace Cap*) 100 mg PO DAILY PRN PRN Reason: CONSTIPATION Last Admin: 05/18/17 16:48 Dose: 100 mg Haloperidol Lactate (Haldol Inj Iv/Im*) 5 mg IV SLOW PU Q6H PRN PRN Reason: AGITATION Last Admin: 05/25/17 22:20 Dose: 5 mg Heparin Sodium (Porcine) (Heparin Flush Picc/Ml/Cvc(*)) 1 - 3 ml FLUSH 0600, 1800 [facility] PRN Reason: Protocol Last Admin: 05/31/17 04:41 Dose: 1 ml Heparin Sodium (Porcine) (Heparin Vial(*)) 5,000 units SUBCUT Q8HR [facility] Last Admin: 05/31/17 07:50 Dose: 5,000 units Hydralazine HCl (Apresoline Iv*) 10 mg IV Q4H PRN PRN Reason: Systolic >170 Last Admin: 05/28/17 19:38 Dose: 10 mg Cefazolin Sodium 2 gm/ Sodium (Chloride) 20 mls @ 60 mls/hr IVPB 0100,0900, 1700 [facility] Last Admin: 05/31/17 01:33 Dose: 60 mls/hr Thiamine HCl 250 mg/ Sodium (Chloride) 102.5 mls @ 205 mls/hr IV DAILY [facility] PRN Reason: Protocol Stop: 06/05/17 08:59 Dextrose 500 ml/ Amino Acids 850 ml/ Sterile Water 150 ml/Fat Emulsion Intravenous 250 ml/ Sodium Chloride 140 meq/Potassium Chloride 50 meq/Potassium Phosphate 15 mmole/Calcium Gluconate 15 meq/Magnesium Sulfate 20 meq/ Multivitamins 10 ml/ Trace Metals 1 ml/ Phytonadione 0.2 mg/ Nutrition ( Parenteral) 1,863.2841 mls @ 77.637 mls/hr CENTR 1700 [facility] PRN Reason: Protocol Last Admin: 05/30/17 17:28 Dose: 77.637 mls/hr Magnesium Hydroxide (Milk Of Magnesia Liq*) 30 ml PO Q4H PRN PRN Reason: CONSTIPATION Last Admin: 05/19/17 11:05 Dose: 30 ml Nebivolol (Bystolic Tab (Nf)) 10 mg PO QAM [facility] Last Admin: 05/31/17 09:45 Dose: 10 mg Ondansetron HCl (Zofran Inj*) 4 mg IV Q6H PRN PRN Reason: NAUSEA/VOMITING Last Admin: 05/28/17 04:49 Dose: 4 mg Polyethylene Glycol/Electrolytes (Miralax*) 17 gm PO DAILY [facility] Last Admin: 05/30/17 09:57 Dose: 17 gm Polyvinyl Alcohol (Polyvinyl Alcohol 1.4% Opth*) 1 drop BOTH EYES Q2H PRN PRN Reason: DRY EYE Last Admin: 05/20/17 16:53 Dose: 1 drop Rifampin (Rifampin Cap*) 300 mg PO BID [facility] Last Admin: 05/30/17 20:37 Dose: 300 mg Sodium Biphosphate/Sodium Phosphate (Fleet Enema*) 1 bottle MT DAILY PRN PRN Reason: CONSTIPATION Thiamine HCl (Vitamin B-1 Tab*) 100 mg PO DAILY [facility] Last Admin: 05/30/17 09:58 Dose: 100 mg
[2017-05-31] MEDS: Allopurinol TAB* 100 MG PO SCH (11:11)
[2017-05-31] MEDS: Thiamine TAB* 100 MG TAB PO SCH (11:11)
[2017-05-31] MEDS: Thiamine IV* 250 MG in NS 0.9% 100 ML* 100 ML IV SCH (11:12)
[2017-05-31] MEDS: Polyethylene Glycol 3350* 17 GM PACKET PO SCH (11:12)
[2017-05-31] MEDS: RiFAMPin CAP* 300 MG CAP PO SCH ×2 (11:14→21:57)
[2017-05-31] MEDS ORDERED: TPN* 24 HR with Dextrose 50% Water* 500 ML, Amino Acid Infusion 10%* 850 ML, Sterile Wa... CENTR SCH ×13 (17:00)
[2017-05-31] MEDS: Atorvastatin* 20 MG TAB PO SCH (17:51)
--- NOTE | 2017-05-31 19:46 | PN ---
Subjective Date of Service: 05/31/17 Interval History: low grade fevers disoriented still hoyered to chair ate 1/2 food (for dinner, while there). updated at bedside. She strongly feels that TPN should continue and feels he is slowly regaining strength. Family History: Unchanged from Admission Social History: Unchanged from Admission Past Medical History: Unchanged from Admission Objective Active Medications: Acetaminophen (Tylenol Tab*) 650 mg PO Q4H PRN PRN Reason: FEVER Last Admin: 05/29/17 20:17 Dose: 650 mg Allopurinol (Zyloprim Tab*) 100 mg PO QAM [facility] Last Admin: 05/31/17 11:11 Dose: 100 mg Amlodipine Besylate (Norvasc Tab*) 5 mg PO DAILY [facility] Last Admin: 05/31/17 09:46 Dose: 5 mg Atorvastatin Calcium (Lipitor*) 20 mg PO 1700 [facility] Last Admin: 05/31/17 17:51 Dose: 20 mg Bisacodyl (Dulcolax Supp*) 10 mg OR DAILY PRN PRN Reason: CONSTIPATION Last Admin: 05/19/17 11:07 Dose: 10 mg Docusate Sodium (Colace Cap*) 100 mg PO DAILY PRN PRN Reason: CONSTIPATION Last Admin: 05/18/17 16:48 Dose: 100 mg Haloperidol Lactate (Haldol Inj Iv/Im*) 5 mg IV SLOW PU Q6H PRN PRN Reason: AGITATION Last Admin: 05/25/17 22:20 Dose: 5 mg Heparin Sodium (Porcine) (Heparin Flush Picc/Ml/Cvc(*)) 1 - 3 ml FLUSH 0600, 1800 [facility] PRN Reason: Protocol Last Admin: 05/31/17 04:41 Dose: 1 ml Heparin Sodium (Porcine) (Heparin Vial(*)) 5,000 units SUBCUT Q8HR [facility] Last Admin: 05/31/17 14:38 Dose: 5,000 units Hydralazine HCl (Apresoline Iv*) 10 mg IV Q4H PRN PRN Reason: Systolic >170 Last Admin: 05/28/17 19:38 Dose: 10 mg Cefazolin Sodium 2 gm/ Sodium (Chloride) 20 mls @ 60 mls/hr IVPB 0100,0900, 1700 [facility] Last Admin: 05/31/17 17:51 Dose: 60 mls/hr Thiamine HCl 250 mg/ Sodium (Chloride) 102.5 mls @ 205 mls/hr IV DAILY [facility] PRN Reason: Protocol Stop: 06/05/17 08:59 Last Admin: 05/31/17 11:12 Dose: 205 mls/hr Dextrose 500 ml/ Amino Acids 850 ml/ Sterile Water 150 ml/Fat Emulsion Intravenous 250 ml/ Sodium Chloride 145 meq/Potassium Chloride 50 meq/Potassium Phosphate 15 mmole/Calcium Gluconate 15 meq/Magnesium Sulfate 20 meq/ Multivitamins 10 ml/ Trace Metals 1 ml/ Phytonadione 0.2 mg/ Nutrition ( Parenteral) 1,864.5341 mls @ 77.689 mls/hr CENTR 1700 [facility] PRN Reason: Protocol Last Admin: 05/31/17 17:51 Dose: 77.689 mls/hr Magnesium Hydroxide (Milk Of Gisela Liq*) 30 ml PO Q4H PRN PRN Reason: CONSTIPATION Last Admin: 05/19/17 11:05 Dose: 30 ml Nebivolol (Bystolic Tab (Nf)) 10 mg PO QAM [facility] Last Admin: 05/31/17 09:45 Dose: 10 mg Ondansetron HCl (Zofran Inj*) 4 mg IV Q6H PRN PRN Reason: NAUSEA/VOMITING Last Admin: 05/28/17 04:49 Dose: 4 mg Polyethylene Glycol/Electrolytes (Miralax*) 17 gm PO DAILY [facility] Last Admin: 05/31/17 11:12 Dose: 17 gm Polyvinyl Alcohol (Polyvinyl Alcohol 1.4% Opth*) 1 drop BOTH EYES Q2H PRN PRN Reason: DRY EYE Last Admin: 05/20/17 16:53 Dose: 1 drop Rifampin (Rifampin Cap*) 300 mg PO BID [facility] Last Admin: 05/31/17 11:14 Dose: 300 mg Sodium Biphosphate/Sodium Phosphate (Fleet Enema*) 1 bottle OR DAILY PRN PRN Reason: CONSTIPATION Thiamine HCl (Vitamin B-1 Tab*) 100 mg PO DAILY [facility] Last Admin: 05/31/17 11:11 Dose: 100 mg Vital Signs - 8 hr 05/31/17 05/31/17 05/31/17 12:41 13:25 13:31 Temperature 100.1 F 98.5 F Pulse Rate 99 98 Respiratory 22 19 Rate Blood Pressure 131/85 (mmHg) O2 Sat by Pulse 99 99 Oximetry 05/31/17 16:40 Temperature 99.9 F Pulse Rate 92 Respiratory 18 Rate Blood Pressure 170/87 (mmHg) O2 Sat by Pulse 100 Oximetry Oxygen Devices in Use Now: None Appearance: chronicall ill appearing, sitting in chair. Eyes: No Scleral Icterus Ears/Nose/Mouth/Throat: NL Teeth, Lips, Gums Neck: NL Appearance and Movements; NL JVP, Trachea Midline Respiratory: Symmetrical Chest Expansion and Respiratory Effort, Clear to Auscultation Cardiovascular: NL Sounds; No Murmurs; No JVD, RRR Abdominal: NL Sounds; No Tenderness; No Distention, No Hepatosplenomegaly Extremities: No Edema, No Clubbing, Cyanosis Skin: No Rash or Ulcers, - - bandaged midline spinal scar, no strikethrou Neurological: NL Sensation, - - oriented to name. Thinks in "[place]", year 1987. Knows . confused about relationship with . Result Diagrams: 05/31/17 04:30 05/31/17 04:30 Additional Lab and Data: Laboratory Results - last 24 hr 05/30/17 05/31/17 05/31/17 23:27 04:30 04:30 WBC 6.0 RBC 2.84 L Hgb 8.3 L Hct 25 L MCV 87 MCH 29 MCHC 34 RDW 16 H Plt Count 273 MPV 7.7 Neut % (Auto) 59.7 Lymph % (Auto) 14.8 L [place] % (Auto) 18.1 H Eos % (Auto) 6.9 H Baso % (Auto) 0.5 Absolute Neuts (auto) 3.6 Absolute Lymphs (auto) 0.9 L Absolute Monos (auto) 1.1 H Absolute Eos (auto) 0.4 Absolute Basos (auto) 0 Absolute Nucleated RBC 0 Nucleated RBC % 0 Sodium 132 L Potassium 4.0 Chloride 107 Carbon Dioxide 19 L Anion Gap 6 BUN 15 Creatinine 0.54 L Est GFR ( Amer) 191.3 Est GFR (Non-Af Amer) 148.7 BUN/Creatinine Ratio 27.8 H Glucose 104 H POC Glucose (mg/dL) 102 H Calcium 8.2 L Total Bilirubin 0.40 AST 21 ALT 4 L Alkaline Phosphatase 107 H C-Reactive Protein 58.63 H Total Protein 6.4 Albumin 2.2 L Globulin 4.2 H Albumin/Globulin Ratio 0.5 L 05/31/17 05/31/17 05/31/17 10:23 13:58 18:17 WBC RBC Hgb Hct MCV MCH MCHC RDW Plt Count MPV Neut % (Auto) Lymph % (Auto) [place] % (Auto) Eos % (Auto) Baso % (Auto) Absolute Neuts (auto) Absolute Lymphs (auto) Absolute Monos (auto) Absolute Eos (auto) Absolute Basos (auto) Absolute Nucleated RBC Nucleated RBC % Sodium Potassium Chloride Carbon Dioxide Anion Gap BUN Creatinine Est GFR ( Amer) Est GFR (Non-Af Amer) BUN/Creatinine Ratio Glucose POC Glucose (mg/dL) 115 H 132 H 128 H Calcium Total Bilirubin AST ALT Alkaline Phosphatase C-Reactive Protein Total Protein Albumin Globulin Albumin/Globulin Ratio Microbiology and Other Data: Microbiology 05/29/17 16:45 Blood Venous Aerobic Blood Culture - Preliminary No Growth Day 2 05/29/17 16:45 Blood Venous Anaerobic Blood Culture - Preliminary No Growth Day 2 05/29/17 16:32 Blood Venous Aerobic Blood Culture - Preliminary No Growth Day 2 05/29/17 16:32 Blood Venous Anaerobic Blood Culture - Preliminary No Growth Day 2 05/21/17 17:58 Wound - Knee Left Anaerobic Culture - Final No Growth Day 4 05/21/17 17:58 Knee Left Gram Stain - Final 05/21/17 17:58 Knee Left Wound Culture - Final No Growth Day 4 05/21/17 16:36 Wound - Shoulder Right Anaerobic Culture - Final No Growth Day 4 05/21/17 16:36 Shoulder Right Gram Stain - Final 05/21/17 16:36 Shoulder Right Wound Culture - Final No Growth Day 4 05/21/17 16:36 Wound - Shoulder Right Anaerobic Culture - Final No Growth Day 4 05/21/17 16:36 Shoulder Right Gram Stain - Final 05/21/17 16:36 Shoulder Right Wound Culture - Final No Growth Day 4 04/23/17 10:30 Misc Source (See Comment) - Other Fungal Culture - Final 05/20/17 05:43 Stool Stool Occult Blood (KEEGAN) - Final 05/14/17 14:30 Misc Fluid (See Comment) - Abscess Gram Stain - Final 05/14/17 14:30 Misc Fluid (See Comment) - Abscess Body Fluid Culture - Final 05/14/17 14:30 Misc Fluid (See Comment) - Abscess Skin and Soft Tissue MRSA/ MSSA (PCR - Final Mrsa Negative S.aureus Positive 05/12/17 01:30 Blood Venous Aerobic Blood Culture - Final No Growth Day 5 05/12/17 01:30 Blood Venous Anaerobic Blood Culture - Final No Growth Day 5 05/12/17 01:30 Blood Venous Aerobic Blood Culture - Final No Growth Day 5 05/12/17 01:30 Blood Venous Anaerobic Blood Culture - Final No Growth Day 5 05/12/17 00:48 Blood Venous Aerobic Blood Culture - Final No Growth Day 5 05/12/17 00:48 Blood Venous Anaerobic Blood Culture - Final No Growth Day 5 05/09/17 17:00 Blood Venous Aerobic Blood Culture - Final No Growth Day 5 05/09/17 17:00 Blood Venous Anaerobic Blood Culture - Final No Growth Day 5 05/09/17 17:00 Blood Venous Aerobic Blood Culture - Final No Growth Day 5 05/09/17 17:00 Blood Venous Anaerobic Blood Culture - Final No Growth Day 5 05/08/17 19:15 Joint Fluid(Synovial) Gram Stain - Final 05/08/17 19:15 Joint Fluid(Synovial) Body Fluid Culture - Final No Growth Day 4 05/08/17 19:15 Joint Fluid(Synovial) Skin and Soft Tissue MRSA/MSSA (PCR - Final Mrsa Negative S.aureus Negative 05/08/17 19:15 Body Fluid Gram Stain - Final 05/08/17 19:15 Body Fluid Body Fluid Culture - Final No Growth Day 4 05/08/17 19:15 Body Fluid Skin and Soft Tissue MRSA/MSSA (PCR - Final Mrsa Negative S.aureus Positive 04/27/17 08:00 Blood Venous Aerobic Blood Culture - Final No Growth Day 5 04/27/17 08:00 Blood Venous Anaerobic Blood Culture - Final No Growth Day 5 04/27/17 06:10 Blood Venous Aerobic Blood Culture - Final Staphylococcus Epidermidis 04/27/17 06:10 Blood Venous Anaerobic Blood Culture - Final No Growth Day 5 04/27/17 06:10 Blood Venous Blood MRSA/MSSA (PCR) - Final Mrsa Negative S.aureus Negative 04/26/17 21:00 Wound - Wound Anaerobic Culture - Final 04/26/17 21:00 Wound - Wound Skin and Soft Tissue MRSA/MSSA (PCR - Final Mrsa Negative S.aureus Positive 04/26/17 21:00 Wound - Wound Gram Stain - Final 04/26/17 21:00 Wound - Wound Wound Culture - Final Staphylococcus Aureus 04/23/17 15:53 Wound - Knee Left Anaerobic Culture - Final 04/23/17 15:53 Wound - Knee Left Skin and Soft Tissue MRSA/MSSA (PCR - Final Mrsa Negative S.aureus Positive 04/23/17 15:53 Wound - Knee Left Gram Stain - Final 04/23/17 15:53 Wound - Knee Left Wound Culture - Final Staphylococcus Aureus 04/23/17 10:30 Joint Fluid(Synovial) - Knee Left Gram Stain - Final 04/23/17 10:30 Joint Fluid(Synovial) - Knee Left Body Fluid Culture - Final Staphylococcus Aureus 04/23/17 10:30 Joint Fluid(Synovial) - Knee Left Skin and Soft Tissue MRSA/ MSSA (PCR - Final Mrsa Negative S.aureus Positive 04/22/17 16:56 Wound - Abscess Anaerobic Culture - Final 04/22/17 16:56 Wound - Abscess Skin and Soft Tissue MRSA/MSSA (PCR - Final Mrsa Negative S.aureus Positive 04/22/17 16:56 Wound - Abscess Gram Stain - Final 04/22/17 16:56 Wound - Abscess Wound Culture - Final Staphylococcus Aureus 04/22/17 15:00 Wound - Other Anaerobic Culture - Final 04/22/17 15:00 Misc Source (See Comment) - Other Skin and Soft Tissue MRSA/ MSSA (PCR - Final Mrsa Negative S.aureus Positive 04/22/17 15:00 Misc Source (See Comment) - Other Gram Stain - Final 04/22/17 15:00 Misc Source (See Comment) - Other Wound Culture - Final Staphylococcus Aureus 04/21/17 05:40 Blood Venous Aerobic Blood Culture - Final Staphylococcus Aureus 04/21/17 05:40 Blood Venous Anaerobic Blood Culture - Final Staphylococcus Aureus 04/21/17 05:40 Blood Venous Blood MRSA/MSSA (PCR) - Final Mrsa Negative S.aureus Positive 04/21/17 04:40 Blood Venous Aerobic Blood Culture - Final Staphylococcus Aureus 04/21/17 04:40 Blood Venous Anaerobic Blood Culture - Final Staphylococcus Aureus 04/21/17 04:40 Blood Venous Blood MRSA/MSSA (PCR) - Final Mrsa Negative S.aureus Positive 04/22/17 06:20 Nasal Nasal Screen MRSA (PCR)(KEEGAN) - Final Mrsa Not Detected Assess/Plan/Problems-Billing Assessment: 76 yo M with h/o HTN, ETOH abuse, multiple joint replacements, GI bleed (and partial colon resection due to bleed) who presented to the ER with c/o fever and severe back pain and was ultimately found to have a very large epidural abscess/septic joints, R septic shoulder, L septic knee, right psoas abscess s/ p drainage in the setting of MSSA bacteremia with stay complicated by delirium. - Patient Problems (1) Encephalopathy Current Visit: Yes Status: Acute Code(s): G93.40 - ENCEPHALOPATHY, UNSPECIFIED SNOMED Code(s): 76472298 Comment: - multifactorial associated with infection. 4-5 beers daily prior to admission, now on high dose thiamine for possible Wernicke's. Has not made much progress. (2) Epidural abscess Current Visit: Yes Status: Acute Code(s): G06.2 - EXTRADURAL AND SUBDURAL ABSCESS, UNSPECIFIED SNOMED Code(s): 67354991 Comment: The patient presented with a very large epidural abscess with associated septic arthristis He underwent multilevel skip laminectomies from C6 -7- L5 on 04/22/17. Continue rifampin and ancef per Dr. Franklin. Discussed about any further imaging, not at this time. consider repeat CT or MRI imaging given known paraspinal fluid collections that were not able to be attempted to drain on 05/14. trending CRP. intermittent fevers and continued encephalopathy. (3) MSSA bacteremia Current Visit: Yes Status: Acute Code(s): R78.81 - BACTEREMIA SNOMED Code( s): 276021507 Comment: (4) Septic arthritis of knee, left Current Visit: Yes Status: Acute Code(s): M00.9 - PYOGENIC ARTHRITIS, UNSPECIFIED SNOMED Code(s): 283503510 Comment: The patient is s/p washout/debridement and liner exchange of the left knee total arthroplasty 04/23/17, Left knee aspiration on 05/08/17 and repeat washout 05/21 Cultures negative from last washouts Continue ancef and rifampin (5) Septic arthritis of shoulder, right Current Visit: Yes Status: Acute Code(s): M00.9 - PYOGENIC ARTHRITIS, UNSPECIFIED SNOMED Code(s): 27395434 Comment: The patient is s/p washout/debridement of R shoulder 04/26/17 and washout 05/21 Cultures negative from last washouts Continue ancef and rifampin. (6) DVT prophylaxis Current Visit: Yes Status: Acute Code(s): FFD2788 - SNOMED Code(s): 914204851 Comment: - SQ heparin. (7) Gout Current Visit: Yes Status: Acute Code(s): M10.9 - GOUT, UNSPECIFIED SNOMED Code(s): 22724090 Comment: allopurinol (8) Anemia Current Visit: Yes Status: Acute Code(s): D64.9 - ANEMIA, UNSPECIFIED SNOMED Code(s): 445685295 Comment: anemia of chronic disease. has required transfusions. (9) Debility Current Visit: Yes Status: Acute Code(s): R53.81 - OTHER MALAISE SNOMED Code(s): 77505247 Comment: He will need STR. (10) Severe protein-calorie malnutrition Current Visit: Yes Status: Acute Code(s): E43 - UNSPECIFIED SEVERE PROTEIN- CALORIE MALNUTRITION SNOMED Code(s): 776538094 Comment: - Prealbumin <3. - Continue TPN (started 05/24/17) but very cautious in setting of likely continued infection. Status and Disposition: Inpatient for extensive MSSA infection management.
[2017-05-31] MEDS: Acetaminophen TAB* 325 MG PO PRN (22:34)
[2017-06-01] MEDS: CEFAZOLIN IVPB SCH ×2 (02:05→09:44)
[2017-06-01] MEDS: NS 0.9% IVPB SCH ×2 (02:05→09:44)
[2017-06-01] MEDS: Heparin VIAL(*) 5000 UNITS/ML VIAL (FIVE THOUSAND) SUBCUT SCH ×3 (06:32→22:00)
[2017-06-01 08:56] LABS: EGFR Non-African American 142.6 (>60)
[2017-06-01] MEDS: Polyethylene Glycol 3350* 17 GM PACKET PO SCH (09:43)
[2017-06-01] MEDS: amLODIPine TAB* 5 MG PO SCH (09:48)
[2017-06-01] MEDS: CMCS: Nebivolol TAB (NF) 2.5 MG TAB PO SCH (09:48)
[2017-06-01] MEDS: RiFAMPin CAP* 300 MG CAP PO SCH (09:48)
[2017-06-01] MEDS: Allopurinol TAB* 100 MG PO SCH (09:48)
[2017-06-01] MEDS: Thiamine TAB* 100 MG TAB PO SCH (09:48)
[2017-06-01] MEDS: Thiamine IV* 250 MG in NS 0.9% 100 ML* 100 ML IV SCH (10:54)
--- NOTE | 2017-06-01 17:18 | PN ---
Subjective Date of Service: 06/01/17 Interval History: Confused. Asking how long he will live. TPN adjusted. Family History: Unchanged from Admission Social History: Unchanged from Admission Past Medical History: Unchanged from Admission Objective Active Medications: Acetaminophen (Tylenol Tab*) 650 mg PO Q4H PRN PRN Reason: FEVER Last Admin: 05/31/17 22:34 Dose: 650 mg Allopurinol (Zyloprim Tab*) 100 mg PO QAM [facility] Last Admin: 06/01/17 09:48 Dose: 100 mg Amlodipine Besylate (Norvasc Tab*) 5 mg PO DAILY [facility] Last Admin: 06/01/17 09:48 Dose: 5 mg Atorvastatin Calcium (Lipitor*) 20 mg PO 1700 [facility] Last Admin: 05/31/17 17:51 Dose: 20 mg Bisacodyl (Dulcolax Supp*) 10 mg [place] DAILY PRN PRN Reason: CONSTIPATION Last Admin: 05/19/17 11:07 Dose: 10 mg Docusate Sodium (Colace Cap*) 100 mg PO DAILY PRN PRN Reason: CONSTIPATION Last Admin: 05/18/17 16:48 Dose: 100 mg Haloperidol Lactate (Haldol Inj Iv/Im*) 5 mg IV SLOW PU Q6H PRN PRN Reason: AGITATION Last Admin: 05/25/17 22:20 Dose: 5 mg Heparin Sodium (Porcine) (Heparin Flush Picc/Ml/Cvc(*)) 1 - 3 ml FLUSH 0600, 1800 [facility] PRN Reason: Protocol Last Admin: 06/01/17 06:32 Dose: 1 ml Heparin Sodium (Porcine) (Heparin Vial(*)) 5,000 units SUBCUT Q8HR [facility] Last Admin: 06/01/17 14:40 Dose: 5,000 units Hydralazine HCl (Apresoline Iv*) 10 mg IV Q4H PRN PRN Reason: Systolic >170 Last Admin: 05/28/17 19:38 Dose: 10 mg Thiamine HCl 250 mg/ Sodium (Chloride) 102.5 mls @ 205 mls/hr IV DAILY [facility] PRN Reason: Protocol Stop: 06/05/17 08:59 Last Admin: 06/01/17 10:54 Dose: 205 mls/hr Dextrose 500 ml/ Amino Acids 850 ml/ Sterile Water 150 ml/Fat Emulsion Intravenous 250 ml/ Sodium Chloride 150 meq/Potassium Chloride 60 meq/Calcium Gluconate 15 meq/Magnesium Sulfate 30 meq/Multivitamins 10 ml/ Trace Metals 1 ml / Phytonadione 0.2 mg/ Nutrition (Parenteral) 1,868.2471 mls @ 77.844 mls/hr [facility] 1700 [facility] PRN Reason: Protocol Cefazolin Sodium 2 gm/ Sterile (Water) 20 mls @ 60 mls/hr IVPB 0100,0900,1700 [facility] Magnesium Hydroxide (Milk Of Magnjim Liq*) 30 ml PO Q4H PRN PRN Reason: CONSTIPATION Last Admin: 05/19/17 11:05 Dose: 30 ml Nebivolol (Bystolic Tab (Nf)) 10 mg PO QAM [facility] Last Admin: 06/01/17 09:48 Dose: 10 mg Ondansetron HCl (Zofran Inj*) 4 mg IV Q6H PRN PRN Reason: NAUSEA/VOMITING Last Admin: 05/28/17 04:49 Dose: 4 mg Polyethylene Glycol/Electrolytes (Miralax*) 17 gm PO DAILY [facility] Last Admin: 06/01/17 09:43 Dose: 17 gm Polyvinyl Alcohol (Polyvinyl Alcohol 1.4% Opth*) 1 drop BOTH EYES Q2H PRN PRN Reason: DRY EYE Last Admin: 05/20/17 16:53 Dose: 1 drop Rifampin (Rifampin Cap*) 300 mg PO BID [facility] Last Admin: 06/01/17 09:48 Dose: 300 mg Sodium Biphosphate/Sodium Phosphate (Fleet Enema*) 1 bottle [place] DAILY PRN PRN Reason: CONSTIPATION Thiamine HCl (Vitamin B-1 Tab*) 100 mg PO DAILY [facility] Last Admin: 06/01/17 09:48 Dose: 100 mg Vital Signs - 8 hr 06/01/17 06/01/17 06/01/17 11:38 15:59 16:00 Temperature 98.4 F 98.7 F Pulse Rate 78 74 Respiratory 17 18 Rate Blood Pressure 140/74 173/93 (mmHg) O2 Sat by Pulse 100 100 98 Oximetry 06/01/17 16:08 Temperature Pulse Rate Respiratory Rate Blood Pressure 130/60 (mmHg) O2 Sat by Pulse Oximetry Oxygen Devices in Use Now: None Appearance: NAD Eyes: No Scleral Icterus, PERRLA Ears/Nose/Mouth/Throat: NL Teeth, Lips, Gums, Mucous Membranes Moist Neck: NL Appearance and Movements; NL JVP Respiratory: Symmetrical Chest Expansion and Respiratory Effort, Clear to Auscultation Cardiovascular: NL Sounds; No Murmurs; No JVD, RRR Abdominal: NL Sounds; No Tenderness; No Distention, No Hepatosplenomegaly Extremities: No Edema, No Clubbing, Cyanosis, - - left knee slightly warm. effusion. no erythema. Skin: No Rash or Ulcers, No Nodules or Sclerosis, - - no drainage from back wounds. slightly tender to lower back. Neurological: - - Oriented x0. LIN. Mentions Mimi (his ). Nutrition: Taking PO's Result Diagrams: 05/31/17 04:30 06/01/17 08:20 Additional Lab and Data: Laboratory Results - last 24 hr 05/31/17 05/31/17 06/01/17 18:17 22:37 02:53 Sodium Potassium Chloride Carbon Dioxide Anion Gap BUN Creatinine Est GFR ( Amer) Est GFR (Non-Af Amer) BUN/Creatinine Ratio Glucose POC Glucose (mg/dL) 128 H 155 H 148 H Calcium Phosphorus Magnesium Total Bilirubin AST ALT Alkaline Phosphatase Total Protein Albumin Globulin Albumin/Globulin Ratio Prealbumin Triglycerides Cholesterol 06/01/17 06/01/17 08:20 08:44 Sodium 132 L Potassium 4.3 Chloride 109 Carbon Dioxide 17 L Anion Gap 6 BUN 18 Creatinine 0.56 L Est GFR ( Amer) 183.4 Est GFR (Non-Af Amer) 142.6 BUN/Creatinine Ratio 32.1 H Glucose 110 H POC Glucose (mg/dL) 114 H Calcium 8.5 L Phosphorus 5.6 H Magnesium 1.7 L Total Bilirubin 0.40 AST 23 ALT 6 L Alkaline Phosphatase 112 H Total Protein 6.4 Albumin 2.2 L Globulin 4.2 H Albumin/Globulin Ratio 0.5 L Prealbumin 4 L Triglycerides 92 Cholesterol 70 Microbiology and Other Data: Microbiology 05/29/17 16:45 Blood Venous Aerobic Blood Culture - Preliminary No Growth Day 3 05/29/17 16:45 Blood Venous Anaerobic Blood Culture - Preliminary No Growth Day 3 05/29/17 16:32 Blood Venous Aerobic Blood Culture - Preliminary No Growth Day 3 05/29/17 16:32 Blood Venous Anaerobic Blood Culture - Preliminary No Growth Day 3 05/21/17 17:58 Wound - Knee Left Anaerobic Culture - Final No Growth Day 4 05/21/17 17:58 Knee Left Gram Stain - Final 03/30/18 17:58 Knee Left Wound Culture - Final No Growth Day 4 05/21/17 16:36 Wound - Shoulder Right Anaerobic Culture - Final No Growth Day 4 05/21/17 16:36 Shoulder Right Gram Stain - Final 05/21/17 16:36 Shoulder Right Wound Culture - Final No Growth Day 4 05/21/17 16:36 Wound - Shoulder Right Anaerobic Culture - Final No Growth Day 4 05/21/17 16:36 Shoulder Right Gram Stain - Final 05/21/17 16:36 Shoulder Right Wound Culture - Final No Growth Day 4 04/23/17 10:30 Misc Source (See Comment) - Other Fungal Culture - Final 05/20/17 05:43 Stool Stool Occult Blood (KEEGAN) - Final 05/14/17 14:30 Misc Fluid (See Comment) - Abscess Gram Stain - Final 05/14/17 14:30 Misc Fluid (See Comment) - Abscess Body Fluid Culture - Final 05/14/17 14:30 Misc Fluid (See Comment) - Abscess Skin and Soft Tissue MRSA/ MSSA (PCR - Final Mrsa Negative S.aureus Positive 05/12/17 01:30 Blood Venous Aerobic Blood Culture - Final No Growth Day 5 05/12/17 01:30 Blood Venous Anaerobic Blood Culture - Final No Growth Day 5 05/12/17 01:30 Blood Venous Aerobic Blood Culture - Final No Growth Day 5 05/12/17 01:30 Blood Venous Anaerobic Blood Culture - Final No Growth Day 5 05/12/17 00:48 Blood Venous Aerobic Blood Culture - Final No Growth Day 5 05/12/17 00:48 Blood Venous Anaerobic Blood Culture - Final No Growth Day 5 05/09/17 17:00 Blood Venous Aerobic Blood Culture - Final No Growth Day 5 05/09/17 17:00 Blood Venous Anaerobic Blood Culture - Final No Growth Day 5 05/09/17 17:00 Blood Venous Aerobic Blood Culture - Final No Growth Day 5 05/09/17 17:00 Blood Venous Anaerobic Blood Culture - Final No Growth Day 5 05/08/17 19:15 Joint Fluid(Synovial) Gram Stain - Final 05/08/17 19:15 Joint Fluid(Synovial) Body Fluid Culture - Final No Growth Day 4 05/08/17 19:15 Joint Fluid(Synovial) Skin and Soft Tissue MRSA/MSSA (PCR - Final Mrsa Negative S.aureus Negative 05/08/17 19:15 Body Fluid Gram Stain - Final 05/08/17 19:15 Body Fluid Body Fluid Culture - Final No Growth Day 4 05/08/17 19:15 Body Fluid Skin and Soft Tissue MRSA/MSSA (PCR - Final Mrsa Negative S.aureus Positive 04/27/17 08:00 Blood Venous Aerobic Blood Culture - Final No Growth Day 5 04/27/17 08:00 Blood Venous Anaerobic Blood Culture - Final No Growth Day 5 04/27/17 06:10 Blood Venous Aerobic Blood Culture - Final Staphylococcus Epidermidis 04/27/17 06:10 Blood Venous Anaerobic Blood Culture - Final No Growth Day 5 04/27/17 06:10 Blood Venous Blood MRSA/MSSA (PCR) - Final Mrsa Negative S.aureus Negative 04/26/17 21:00 Wound - Wound Anaerobic Culture - Final 04/26/17 21:00 Wound - Wound Skin and Soft Tissue MRSA/MSSA (PCR - Final Mrsa Negative S.aureus Positive 04/26/17 21:00 Wound - Wound Gram Stain - Final 04/26/17 21:00 Wound - Wound Wound Culture - Final Staphylococcus Aureus 04/23/17 15:53 Wound - Knee Left Anaerobic Culture - Final 04/23/17 15:53 Wound - Knee Left Skin and Soft Tissue MRSA/MSSA (PCR - Final Mrsa Negative S.aureus Positive 04/23/17 15:53 Wound - Knee Left Gram Stain - Final 04/23/17 15:53 Wound - Knee Left Wound Culture - Final Staphylococcus Aureus 04/23/17 10:30 Joint Fluid(Synovial) - Knee Left Gram Stain - Final 04/23/17 10:30 Joint Fluid(Synovial) - Knee Left Body Fluid Culture - Final Staphylococcus Aureus 04/23/17 10:30 Joint Fluid(Synovial) - Knee Left Skin and Soft Tissue MRSA/ MSSA (PCR - Final Mrsa Negative S.aureus Positive 04/22/17 16:56 Wound - Abscess Anaerobic Culture - Final 04/22/17 16:56 Wound - Abscess Skin and Soft Tissue MRSA/MSSA (PCR - Final Mrsa Negative S.aureus Positive 04/22/17 16:56 Wound - Abscess Gram Stain - Final 04/22/17 16:56 Wound - Abscess Wound Culture - Final Staphylococcus Aureus 04/22/17 15:00 Wound - Other Anaerobic Culture - Final 04/22/17 15:00 Misc Source (See Comment) - Other Skin and Soft Tissue MRSA/ MSSA (PCR - Final Mrsa Negative S.aureus Positive 04/22/17 15:00 Misc Source (See Comment) - Other Gram Stain - Final 04/22/17 15:00 Misc Source (See Comment) - Other Wound Culture - Final Staphylococcus Aureus 04/21/17 05:40 Blood Venous Aerobic Blood Culture - Final Staphylococcus Aureus 04/21/17 05:40 Blood Venous Anaerobic Blood Culture - Final Staphylococcus Aureus 04/21/17 05:40 Blood Venous Blood MRSA/MSSA (PCR) - Final Mrsa Negative S.aureus Positive 04/21/17 04:40 Blood Venous Aerobic Blood Culture - Final Staphylococcus Aureus 04/21/17 04:40 Blood Venous Anaerobic Blood Culture - Final Staphylococcus Aureus 04/21/17 04:40 Blood Venous Blood MRSA/MSSA (PCR) - Final Mrsa Negative S.aureus Positive 04/22/17 06:20 Nasal Nasal Screen MRSA (PCR)(KEEGAN) - Final Mrsa Not Detected Assess/Plan/Problems-Billing Assessment: 76 yo M with h/o HTN, ETOH abuse, multiple joint replacements, GI bleed (and partial colon resection due to bleed) who presented to the ER with c/o fever and severe back pain and was ultimately found to have a very large epidural abscess/septic joints, R septic shoulder, L septic knee, right psoas abscess s/ p drainage in the setting of MSSA bacteremia with stay complicated by delirium. - Patient Problems (1) Encephalopathy Current Visit: Yes Status: Acute Code(s): G93.40 - ENCEPHALOPATHY, UNSPECIFIED SNOMED Code(s): 02453418 Comment: - multifactorial associated with infection. 4-5 beers daily prior to admission, now on high dose thiamine for possible Wernicke's. Has not made much progress. Palliative care consulted. (2) Epidural abscess Current Visit: Yes Status: Acute Code(s): G06.2 - EXTRADURAL AND SUBDURAL ABSCESS, UNSPECIFIED SNOMED Code(s): 44115032 Comment: The patient presented with a very large epidural abscess with associated septic arthristis He underwent multilevel skip laminectomies from C6 -7- L5 on 04/22/17. Continue rifampin and ancef per Dr. Franklin. Discussed about any further imaging, not at this time. consider repeat CT or MRI imaging given known paraspinal fluid collections that were not able to be attempted to drain on 05/14. trending CRP. intermittent fevers and continued encephalopathy. (3) MSSA bacteremia Current Visit: Yes Status: Acute Code(s): R78.81 - BACTEREMIA SNOMED Code( s): 089538564 Comment: (4) Septic arthritis of knee, left Current Visit: Yes Status: Acute Code(s): M00.9 - PYOGENIC ARTHRITIS, UNSPECIFIED SNOMED Code(s): 483075183 Comment: The patient is s/p washout/debridement and liner exchange of the left knee total arthroplasty 04/23/17, Left knee aspiration on 05/08/17 and repeat washout 05/21 Cultures negative from last washouts Continue ancef and rifampin slightly warm 06/01. (5) Septic arthritis of shoulder, right Current Visit: Yes Status: Acute Code(s): M00.9 - PYOGENIC ARTHRITIS, UNSPECIFIED SNOMED Code(s): 22711990 Comment: The patient is s/p washout/debridement of R shoulder 04/26/17 and washout 05/21 Cultures negative from last washouts Continue ancef and rifampin. (6) DVT prophylaxis Current Visit: Yes Status: Acute Code(s): WYL9909 - SNOMED Code(s): 188392810 Comment: - SQ heparin. (7) Gout Current Visit: Yes Status: Acute Code(s): M10.9 - GOUT, UNSPECIFIED SNOMED Code(s): 57804237 Comment: allopurinol (8) Anemia Current Visit: Yes Status: Acute Code(s): D64.9 - ANEMIA, UNSPECIFIED SNOMED Code(s): 492559601 Comment: anemia of chronic disease. has required transfusions. (9) Debility Current Visit: Yes Status: Acute Code(s): R53.81 - OTHER MALAISE SNOMED Code(s): 27166973 Comment: He will need STR. (10) Severe protein-calorie malnutrition Current Visit: Yes Status: Acute Code(s): E43 - UNSPECIFIED SEVERE PROTEIN- CALORIE MALNUTRITION SNOMED Code(s): 553536084 Comment: - Prealbumin <3 -> 4 - Continue TPN (started 05/24/17) but very cautious in setting of likely continued infection. Status and Disposition: Inpatient for extensive MSSA infection management. Palliative care consulted.
[2017-06-01] MEDS: Atorvastatin* 20 MG TAB PO SCH (17:31)
[2017-06-01] MEDS: ceFAZolin 2 GM/20 ML SYRINGE IVPB Q8H IVPB SCH ×2 (17:31)
[2017-06-01] MEDS: TPN* 24 HR with Dextrose 50% Water* 500 ML, Amino Acid Infusion 10%* 850 ML, Sterile Wa... CENTR SCH ×12 (17:33)
[2017-06-01] MEDS: hydrALAZINE IV* 20 MG/ML VIAL IV PRN (20:55)
[2017-06-02] MEDS: ceFAZolin 2 GM/20 ML SYRINGE IVPB Q8H IVPB SCH ×4 (01:29→10:55)
[2017-06-02] MEDS: Heparin VIAL(*) 5000 UNITS/ML VIAL (FIVE THOUSAND) SUBCUT SCH ×3 (05:20→22:21)
[2017-06-02] MEDS: amLODIPine TAB* 5 MG PO SCH (10:55)
[2017-06-02] MEDS: CMCS: Nebivolol TAB (NF) 2.5 MG TAB PO SCH (10:55)
[2017-06-02] MEDS: Thiamine TAB* 100 MG TAB PO SCH (10:55)
[2017-06-02] MEDS: Polyethylene Glycol 3350* 17 GM PACKET PO SCH (10:55)
[2017-06-02] MEDS: Allopurinol TAB* 100 MG PO SCH (10:56)
[2017-06-02] MEDS: Thiamine IV* 250 MG in NS 0.9% 100 ML* 100 ML IV SCH (14:39)
--- NOTE | 2017-06-02 15:39 | PN ---
Progress Note - Progress Note Date of Service: 06/02/17 SOAP: Subjective: [Patient seen OOB in chair. 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 Objective: [] Vital Signs Temp 97.4 F 06/02/17 15:27 Pulse 78 06/02/17 15:27 Resp 21 06/02/17 15:27 BP 149/99 06/02/17 15:27 Pulse Ox 100 06/02/17 15:31 Intake & Output 06/01/17 06/02/17 06/02/17 18:59 06:59 18:59 Intake Total 2573 2284 580 Output Total 300 Balance 2573 2284 280 Intake: IV Fluids 1813 2284 tpn 1812 2284 Oral 760 0 580 Output: Urine 300 Other: Estimated Void Large Medium Large # Voids 2 1 Laboratory Last Values WBC 6.0 10^3/ul (3.5-10.8) 05/31/17 04:30 RBC 2.84 10^6/ul (4.0-5.4) L 05/31/17 04:30 Hgb 8.3 g/dl (14.0-18.0) L 05/31/17 04:30 Hct 25 % (42-52) L 05/31/17 04:30 MCV 87 fL (80-94) 05/31/17 04:30 MCH 29 pg (27-31) 05/31/17 04:30 MCHC 34 g/dl (31-36) 05/31/17 04:30 RDW 16 % (10.5-15) H 05/31/17 04:30 Plt Count 273 10^3/ul (150-450) 05/31/17 04:30 MPV 7.7 um3 (7.4-10.4) 05/31/17 04:30 Neut % (Auto) 59.7 % (38-83) 05/31/17 04:30 Lymph % (Auto) 14.8 % (25-47) L 05/31/17 04:30 [place] % (Auto) 18.1 % (0-7) H 05/31/17 04:30 Eos % (Auto) 6.9 % (0-6) H 05/31/17 04:30 Baso % (Auto) 0.5 % (0-2) 05/31/17 04:30 Absolute Neuts (auto) 3.6 10^3/ul (1.5-7.7) 05/31/17 04:30 Absolute Lymphs (auto) 0.9 10^3/ul (1.0-4.8) L 05/31/17 04:30 Absolute Monos (auto) 1.1 10^3/ul (0-0.8) H 05/31/17 04:30 Absolute Eos (auto) 0.4 10^3/ul (0-0.6) 05/31/17 04:30 Absolute Basos (auto) 0 10^3/ul (0-0.2) 05/31/17 04:30 Absolute Nucleated RBC 0 10^3/ul 05/31/17 04:30 Immature Gran % 5 % (0-9) 05/17/17 06:16 Neutrophils % 72 % (38-83) 05/17/17 06:16 Band Neutrophils % 1 % (0-8) 04/30/17 05:38 Lymphocytes % 11 % (25-47) L 05/17/17 06:16 Monocytes % 8 % (0-7) H 05/17/17 06:16 Eosinophils % 4 % (0-6) 05/17/17 06:16 Basophils % 0 % (0-2) 05/17/17 06:16 Metamyelocytes % 1 % (0-2) 05/17/17 06:16 Myelocytes % 4 % (0-1) H 05/17/17 06:16 Nucleated RBC % 0 05/31/17 04:30 Abs Neuts (Manual) 4.8 10^3/ul (1.5-7.7) 05/17/17 06:16 Abs Lymphs (Manual) 0.7 10^3/ul (1.0-4.8) L 05/17/17 06:16 Abs Monocytes (Manual) 0.5 10^3/ul (0-0.8) 05/17/17 06:16 Absolute Eos (Manual) 0.3 10^3/ul (0-0.6) 05/17/17 06:16 Abs Basophils (Manual) 0 10^3/ul (0-0.2) 05/17/17 06:16 Normal RBC Morphology Normal (Normal) 05/17/17 06:16 Polychromasia 1+ 05/19/17 03:15 Microcytosis 2+ 05/19/17 03:15 INR (Anticoag Therapy) 1.59 (0.77-1.02) H 05/21/17 06:06 APTT 35.6 seconds (26.0-36.3) 03 00:48 Patient Temperature Not Reportable 04/23/17 00:48 ABG pH 7.44 (7.35-7.45) 04/23/17 00:48 ABG pH (Temp Correct) Not Reportable 04/23/17 00:48 ABG pCO2 31 mmHg (35-45) L 04/23/17 00:48 ABG pCO2 (Temp Corrct Not Reportable 04/23/17 00:48 ABG pO2 128 mmHg (80-100) H 04/23/17 00:48 ABG pO2 (Temp Correct Not Reportable 04/23/17 00:48 ABG HCO3 23.0 mmol/L (19-31) 04/23/17 00:48 ABG O2 Saturation 99.2 % (95-98) H 04/23/17 00:48 ABG Base Excess -2.5 (-2.0-2.0) L 04/23/17 00:48 Respiration Rate 14 04/23/17 00:48 O2 Delivery Device ventilator 03 00:48 Ventilator Type 600 04/23/17 00:48 Vent Mode apv 04/23/17 00:48 FiO2 50 04/23/17 00:48 Inspiratory Time 1.0 04/23/17 00:48 PEEP 5 04/23/17 00:48 Pressure Support Not Reportable 04/23/17 00:48 Pressure Control Not Reportable 04/23/17 00:48 EPAP Not Reportable 04/23/17 00:48 IPAP Not Reportable 04/23/17 00:48 BiPAP Not Reportable 04/23/17 00:48 Sodium 132 mmol/L (139-145) L 06/01/17 08:20 Potassium 4.3 mmol/L (3.5-5.0) 06/01/17 08:20 Chloride 109 mmol/L (101-111) 06/01/17 08:20 Carbon Dioxide 17 mmol/L (22-32) L 06/01/17 08:20 Anion Gap 6 mmol/L (2-11) 06/01/17 08:20 BUN 18 mg/dL (6-24) 06/01/17 08:20 Creatinine 0.56 mg/dL (0.67-1.17) L 06/01/17 08:20 Est GFR ( Amer) 183.4 (>60) 06/01/17 08:20 Est GFR (Non-Af Amer) 142.6 (>60) 06/01/17 08:20 BUN/Creatinine Ratio 32.1 (8-20) H 06/01/17 08:20 Glucose 110 mg/dL (70-100) H 06/01/17 08:20 POC Glucose (mg/dL) 107 mg/dL (70-100) H 06/02/17 09:03 Lactic Acid 1.1 mmol/L (0.5-2.0) 04/21/17 08:43 Calcium 8.5 mg/dL (8.6-10.3) L 06/01/17 08:20 Phosphorus 5.6 mg/dL (2.5-5.0) H 06/01/17 08:20 Magnesium 1.7 mg/dL (1.9-2.7) L 06/01/17 08:20 Iron < 15 ug/dL (50-212) L 05/12/17 14:24 TIBC 151 mcg/dL (250-450) L 05/12/17 14:24 % Saturation 10 % (15-55) L 05/12/17 14:24 Unsat Iron Binding 136.20510 ug/dL 05/12/17 14:24 Transferrin 108 mg/dL (203-362) L 05/12/17 14:24 Ferritin 1062.7 ng/mL (24-336) H 05/12/17 14:24 Total Bilirubin 0.40 mg/dL (0.2-1.0) 06/01/17 08:20 AST 23 U/L (13-39) 06/01/17 08:20 ALT 6 U/L (7-52) L 06/01/17 08:20 Alkaline Phosphatase 112 U/L (34-104) H 06/01/17 08:20 Ammonia 46 mcmol/L (16-53) 05/29/17 08:30 Troponin I 0.03 ng/mL (<0.04) 04/21/17 04:40 C-Reactive Protein 58.63 mg/L (< 5.00) H 05/31/17 04:30 Total Protein 6.4 g/dL (6.4-8.9) 06/01/17 08:20 Albumin 2.2 g/dL (3.2-5.2) L 06/01/17 08:20 Globulin 4.2 g/dL (2-4) H 06/01/17 08:20 Albumin/Globulin Ratio 0.5 (1-3) L 06/01/17 08:20 Prealbumin 4 mg/dL (18-38) L 06/01/17 08:20 Triglycerides 92 mg/dL 06/01/17 08:20 Cholesterol 70 mg/dL 06/01/17 08:20 Lipase 28 U/L (11.0-82.0) 04/21/17 04:40 Urine Color Fariha 05/30/17 18:25 Urine Appearance Clear 05/30/17 18:25 Urine pH 5.0 (5-9) 05/30/17 18:25 Ur Specific [place] 1.013 (1.010-1.030) 05/30/17 18:25 Urine Protein Negative (Negative) 05/30/17 18:25 Urine Ketones Negative (Negative) 05/30/17 18:25 Urine Blood Negative (Negative) 05/30/17 18:25 Urine Nitrate Negative (Negative) 05/30/17 18:25 Urine Bilirubin Negative (Negative) 05/30/17 18:25 Urine Urobilinogen Negative (Negative) 05/30/17 18:25 Ur Leukocyte Esterase Negative (Negative) 05/30/17 18:25 Urine Glucose Negative (Negative) 05/30/17 18:25 Fluid Source Synovial fluid 05/08/17 19:15 Fluid Volume 20 mL 05/08/17 19:15 Fluid Color Red 05/08/17 19:15 Fluid Appearance Bloody 05/08/17 19:15 Fluid WBC 8676 /mcL (0-636161) 05/08/17 19:15 Fluid RBC 50577 /mcL 05/08/17 19:15 Fluid Tot Cell Count 100 05/08/17 19:15 Fluid Neutrophils 93 % 05/08/17 19:15 Fluid Band Neutrophils 3 % 05/08/17 19:15 Fluid Lymphocytes 3 % 05/08/17 19:15 Fluid Reactive Lymphs Cancelled 05/14/17 14:30 Fluid Monocytes 1 % 05/08/17 19:15 Fluid Eosinophils Cancelled 05/14/17 14:30 Fluid Basophils Cancelled 05/14/17 14:30 Fluid Promyelocytes Cancelled 05/14/17 14:30 Fluid Myelocytes Cancelled 05/14/17 14:30 Fluid Metamyelocytes Cancelled 05/14/17 14:30 Fluid Blast Cells Cancelled 05/14/17 14:30 Fluid Nucleated RBCs Cancelled 05/14/17 14:30 Fluid Other Cells 1 04/23/17 10:30 Fluid Cell Count Rvw By 05/08/17 19:15 Fluid Crystals None seen (None Seen) 05/08/17 19:15 Fluid Total Protein 3.1 g/dL 04/23/17 10:30 Fluid Comment Cancelled 05/14/17 14:30 Blood Type O Positive 05/29/17 16:32 Antibody Screen Negative 05/29/17 16:32 Crossmatch See Detail 05/29/17 16:32 General: Well appearing, NAD. Talkative though confused. Right shoulder: Dressing changed. Incisions CDI. No active ROM today, patient very hesitant to attempt. Passive ROM FF to 120 and Abduction to 90. Left knee: Dressing changed. Incisions CDI. No erythema. Active and passive ROM 0-90 degrees. Assessment: []s/p washout right shoulder and left knee Plan: []Needs to continue to work on ROM, progressing towards walking Suture removal end of this week Continue abx per ID, cefazolin
[2017-06-02] MEDS: [UNRECOGNIZED DRUG - OTHER] IVPB SCH ×2 (16:39)
--- NOTE | 2017-06-02 16:55 | PN ---
Subjective Date of Service: 06/02/17 Interval History: Knows name, not place. Fidgety Afebrile. attests to pain in left knee. Family History: Unchanged from Admission Social History: Unchanged from Admission Past Medical History: Unchanged from Admission Objective Active Medications: Acetaminophen (Tylenol Tab*) 650 mg PO Q4H PRN PRN Reason: FEVER Last Admin: 05/31/17 22:34 Dose: 650 mg Allopurinol (Zyloprim Tab*) 100 mg PO QAM [facility] Last Admin: 06/02/17 10:56 Dose: 100 mg Amlodipine Besylate (Norvasc Tab*) 5 mg PO DAILY [facility] Last Admin: 06/02/17 10:55 Dose: 5 mg Atorvastatin Calcium (Lipitor*) 20 mg PO 1700 [facility] Last Admin: 06/01/17 17:31 Dose: 20 mg Bisacodyl (Dulcolax Supp*) 10 mg KS DAILY PRN PRN Reason: CONSTIPATION Last Admin: 05/19/17 11:07 Dose: 10 mg Docusate Sodium (Colace Cap*) 100 mg PO DAILY PRN PRN Reason: CONSTIPATION Last Admin: 05/18/17 16:48 Dose: 100 mg Haloperidol Lactate (Haldol Inj Iv/Im*) 5 mg IV SLOW PU Q6H PRN PRN Reason: AGITATION Last Admin: 05/25/17 22:20 Dose: 5 mg Heparin Sodium (Porcine) (Heparin Flush Picc/Ml/Cvc(*)) 1 - 3 ml FLUSH 0600, 1800 [facility] PRN Reason: Protocol Last Admin: 06/02/17 05:16 Dose: 1 ml Heparin Sodium (Porcine) (Heparin Vial(*)) 5,000 units SUBCUT Q8HR [facility] Last Admin: 06/02/17 14:40 Dose: 5,000 units Hydralazine HCl (Apresoline Iv*) 10 mg IV Q4H PRN PRN Reason: Systolic >170 Last Admin: 06/01/17 20:55 Dose: 10 mg Thiamine HCl 250 mg/ Sodium (Chloride) 102.5 mls @ 205 mls/hr IV DAILY [facility] PRN Reason: Protocol Stop: 06/05/17 08:59 Last Admin: 06/02/17 14:39 Dose: 205 mls/hr Dextrose 500 ml/ Amino Acids 850 ml/ Sterile Water 150 ml/Fat Emulsion Intravenous 250 ml/ Sodium Chloride 150 meq/Potassium Chloride 60 meq/Calcium Gluconate 15 meq/Magnesium Sulfate 30 meq/Multivitamins 10 ml/ Trace Metals 1 ml / Phytonadione 0.2 mg/ Nutrition (Parenteral) 1,868.2471 mls @ 77.844 mls/hr CENTR 1700 [facility] PRN Reason: Protocol Last Admin: 06/01/17 17:33 Dose: 77.844 mls/hr Cefazolin Sodium 2 gm/ Sterile (Water) 20 mls @ 60 mls/hr IVPB 0100,0900,1700 [facility] Stop: 06/02/17 16:59 Last Admin: 06/02/17 10:55 Dose: 60 mls/hr Cefazolin Sodium 2 gm/ Sodium (Chloride) 20 mls @ 60 mls/hr IVPB Q8H [facility] Last Admin: 06/02/17 16:39 Dose: 60 mls/hr Magnesium Hydroxide (Milk Of Magnjim Liq*) 30 ml PO Q4H PRN PRN Reason: CONSTIPATION Last Admin: 05/19/17 11:05 Dose: 30 ml Nebivolol (Bystolic Tab (Nf)) 10 mg PO QAM [facility] Last Admin: 06/02/17 10:55 Dose: 10 mg Ondansetron HCl (Zofran Inj*) 4 mg IV Q6H PRN PRN Reason: NAUSEA/VOMITING Last Admin: 05/28/17 04:49 Dose: 4 mg Polyethylene Glycol/Electrolytes (Miralax*) 17 gm PO DAILY [facility] Last Admin: 06/02/17 10:55 Dose: 17 gm Polyvinyl Alcohol (Polyvinyl Alcohol 1.4% Opth*) 1 drop BOTH EYES Q2H PRN PRN Reason: DRY EYE Last Admin: 05/20/17 16:53 Dose: 1 drop Sodium Biphosphate/Sodium Phosphate (Fleet Enema*) 1 bottle KS DAILY PRN PRN Reason: CONSTIPATION Thiamine HCl (Vitamin B-1 Tab*) 100 mg PO DAILY [facility] Last Admin: 06/02/17 10:55 Dose: 100 mg Vital Signs - 8 hr 06/02/17 06/02/17 06/02/17 11:58 14:00 15:27 Temperature 98.0 F 97.4 F Pulse Rate 73 78 Respiratory 16 20 21 Rate Blood Pressure 141/103 149/99 (mmHg) O2 Sat by Pulse 100 100 Oximetry 04/11/18 15:31 Temperature Pulse Rate Respiratory Rate Blood Pressure (mmHg) O2 Sat by Pulse 100 Oximetry Oxygen Devices in Use Now: None Appearance: NAD, sitting in chair. chronically ill appearing. Eyes: No Scleral Icterus Respiratory: Symmetrical Chest Expansion and Respiratory Effort, Clear to Auscultation Cardiovascular: NL Sounds; No Murmurs; No JVD, RRR Abdominal: NL Sounds; No Tenderness; No Distention, No Hepatosplenomegaly Extremities: No Edema, No Clubbing, Cyanosis, - - left knee with effusion, warmth but no erythema. attests to pain with bending. Skin: No Rash or Ulcers Neurological: NL Sensation, - - oriented to name. Nutrition: Taking PO's Result Diagrams: 05/31/17 04:30 06/01/17 08:20 Additional Lab and Data: Laboratory Results - last 24 hr 06/01/17 06/01/17 06/02/17 18:49 23:55 03:28 POC Glucose (mg/dL) 135 H 132 H 139 H 06/02/17 09:03 POC Glucose (mg/dL) 107 H Microbiology and Other Data: Microbiology 05/29/17 16:32 Blood Venous Aerobic Blood Culture - Preliminary No Growth Day 4 05/29/17 16:32 Blood Venous Anaerobic Blood Culture - Preliminary No Growth Day 4 05/29/17 16:45 Blood Venous Aerobic Blood Culture - Preliminary No Growth Day 3 05/29/17 16:45 Blood Venous Anaerobic Blood Culture - Preliminary No Growth Day 3 05/21/17 17:58 Wound - Knee Left Anaerobic Culture - Final No Growth Day 4 05/21/17 17:58 Knee Left Gram Stain - Final 05/21/17 17:58 Knee Left Wound Culture - Final No Growth Day 4 05/21/17 16:36 Wound - Shoulder Right Anaerobic Culture - Final No Growth Day 4 05/21/17 16:36 Shoulder Right Gram Stain - Final 05/21/17 16:36 Shoulder Right Wound Culture - Final No Growth Day 4 05/21/17 16:36 Wound - Shoulder Right Anaerobic Culture - Final No Growth Day 4 05/21/17 16:36 Shoulder Right Gram Stain - Final 05/21/17 16:36 Shoulder Right Wound Culture - Final No Growth Day 4 04/23/17 10:30 Misc Source (See Comment) - Other Fungal Culture - Final 05/20/17 05:43 Stool Stool Occult Blood (KEEGAN) - Final 05/14/17 14:30 Misc Fluid (See Comment) - Abscess Gram Stain - Final 05/14/17 14:30 Misc Fluid (See Comment) - Abscess Body Fluid Culture - Final 05/14/17 14:30 Misc Fluid (See Comment) - Abscess Skin and Soft Tissue MRSA/ MSSA (PCR - Final Mrsa Negative S.aureus Positive 05/12/17 01:30 Blood Venous Aerobic Blood Culture - Final No Growth Day 5 05/12/17 01:30 Blood Venous Anaerobic Blood Culture - Final No Growth Day 5 05/12/17 01:30 Blood Venous Aerobic Blood Culture - Final No Growth Day 5 05/12/17 01:30 Blood Venous Anaerobic Blood Culture - Final No Growth Day 5 05/12/17 00:48 Blood Venous Aerobic Blood Culture - Final No Growth Day 5 05/12/17 00:48 Blood Venous Anaerobic Blood Culture - Final No Growth Day 5 05/09/17 17:00 Blood Venous Aerobic Blood Culture - Final No Growth Day 5 05/09/17 17:00 Blood Venous Anaerobic Blood Culture - Final No Growth Day 5 05/09/17 17:00 Blood Venous Aerobic Blood Culture - Final No Growth Day 5 05/09/17 17:00 Blood Venous Anaerobic Blood Culture - Final No Growth Day 5 05/08/17 19:15 Joint Fluid(Synovial) Gram Stain - Final 05/08/17 19:15 Joint Fluid(Synovial) Body Fluid Culture - Final No Growth Day 4 05/08/17 19:15 Joint Fluid(Synovial) Skin and Soft Tissue MRSA/MSSA (PCR - Final Mrsa Negative S.aureus Negative 05/08/17 19:15 Body Fluid Gram Stain - Final 05/08/17 19:15 Body Fluid Body Fluid Culture - Final No Growth Day 4 05/08/17 19:15 Body Fluid Skin and Soft Tissue MRSA/MSSA (PCR - Final Mrsa Negative S.aureus Positive 04/27/17 08:00 Blood Venous Aerobic Blood Culture - Final No Growth Day 5 04/27/17 08:00 Blood Venous Anaerobic Blood Culture - Final No Growth Day 5 04/27/17 06:10 Blood Venous Aerobic Blood Culture - Final Staphylococcus Epidermidis 04/27/17 06:10 Blood Venous Anaerobic Blood Culture - Final No Growth Day 5 04/27/17 06:10 Blood Venous Blood MRSA/MSSA (PCR) - Final Mrsa Negative S.aureus Negative 04/26/17 21:00 Wound - Wound Anaerobic Culture - Final 04/26/17 21:00 Wound - Wound Skin and Soft Tissue MRSA/MSSA (PCR - Final Mrsa Negative S.aureus Positive 04/26/17 21:00 Wound - Wound Gram Stain - Final 04/26/17 21:00 Wound - Wound Wound Culture - Final Staphylococcus Aureus 04/23/17 15:53 Wound - Knee Left Anaerobic Culture - Final 04/23/17 15:53 Wound - Knee Left Skin and Soft Tissue MRSA/MSSA (PCR - Final Mrsa Negative S.aureus Positive 04/23/17 15:53 Wound - Knee Left Gram Stain - Final 04/23/17 15:53 Wound - Knee Left Wound Culture - Final Staphylococcus Aureus 04/23/17 10:30 Joint Fluid(Synovial) - Knee Left Gram Stain - Final 04/23/17 10:30 Joint Fluid(Synovial) - Knee Left Body Fluid Culture - Final Staphylococcus Aureus 04/23/17 10:30 Joint Fluid(Synovial) - Knee Left Skin and Soft Tissue MRSA/ MSSA (PCR - Final Mrsa Negative S.aureus Positive 04/22/17 16:56 Wound - Abscess Anaerobic Culture - Final 04/22/17 16:56 Wound - Abscess Skin and Soft Tissue MRSA/MSSA (PCR - Final Mrsa Negative S.aureus Positive 04/22/17 16:56 Wound - Abscess Gram Stain - Final 04/22/17 16:56 Wound - Abscess Wound Culture - Final Staphylococcus Aureus 04/22/17 15:00 Wound - Other Anaerobic Culture - Final 04/22/17 15:00 Misc Source (See Comment) - Other Skin and Soft Tissue MRSA/ MSSA (PCR - Final Mrsa Negative S.aureus Positive 04/22/17 15:00 Misc Source (See Comment) - Other Gram Stain - Final 04/22/17 15:00 Misc Source (See Comment) - Other Wound Culture - Final Staphylococcus Aureus 04/21/17 05:40 Blood Venous Aerobic Blood Culture - Final Staphylococcus Aureus 04/21/17 05:40 Blood Venous Anaerobic Blood Culture - Final Staphylococcus Aureus 04/21/17 05:40 Blood Venous Blood MRSA/MSSA (PCR) - Final Mrsa Negative S.aureus Positive 04/21/17 04:40 Blood Venous Aerobic Blood Culture - Final Staphylococcus Aureus 04/21/17 04:40 Blood Venous Anaerobic Blood Culture - Final Staphylococcus Aureus 04/21/17 04:40 Blood Venous Blood MRSA/MSSA (PCR) - Final Mrsa Negative S.aureus Positive 04/22/17 06:20 Nasal Nasal Screen MRSA (PCR)(KEEGAN) - Final Mrsa Not Detected Assess/Plan/Problems-Billing Assessment: 76 yo M with h/o HTN, ETOH abuse, multiple joint replacements, GI bleed (and partial colon resection due to bleed) who presented to the ER with c/o fever and severe back pain and was ultimately found to have a very large epidural abscess/septic joints, R septic shoulder, L septic knee, right psoas abscess s/ p drainage in the setting of MSSA bacteremia with stay complicated by delirium. - Patient Problems (1) Encephalopathy Current Visit: Yes Status: Acute Code(s): G93.40 - ENCEPHALOPATHY, UNSPECIFIED SNOMED Code(s): 29247216 Comment: - multifactorial associated with infection. 4-5 beers daily prior to admission, now on high dose thiamine for possible Wernicke's. Has not made much progress. Palliative care consulted. (2) Epidural abscess Current Visit: Yes Status: Acute Code(s): G06.2 - EXTRADURAL AND SUBDURAL ABSCESS, UNSPECIFIED SNOMED Code(s): 71309556 Comment: The patient presented with a very large epidural abscess with associated septic arthristis He underwent multilevel skip laminectomies from C6 -7- L5 on 04/22/17. Continue rifampin and ancef per Dr. Franklin. Discussed about any further imaging, not at this time. consider repeat CT or MRI imaging given known paraspinal fluid collections that were not able to be attempted to drain on 05/14. trending CRP. intermittent fevers and continued encephalopathy. (3) MSSA bacteremia Current Visit: Yes Status: Acute Code(s): R78.81 - BACTEREMIA SNOMED Code( s): 594415037 Comment: (4) Septic arthritis of knee, left Current Visit: Yes Status: Acute Code(s): M00.9 - PYOGENIC ARTHRITIS, UNSPECIFIED SNOMED Code(s): 213638815 Comment: The patient is s/p washout/debridement and liner exchange of the left knee total arthroplasty 04/23/17, Left knee aspiration on 05/08/17 and repeat washout 05/21 Cultures negative from last washouts Continue ancef and rifampin slightly warm 06/01. (5) Septic arthritis of shoulder, right Current Visit: Yes Status: Acute Code(s): M00.9 - PYOGENIC ARTHRITIS, UNSPECIFIED SNOMED Code(s): 30603400 Comment: The patient is s/p washout/debridement of R shoulder 04/26/17 and washout 05/21 Cultures negative from last washouts Continue ancef and rifampin. (6) DVT prophylaxis Current Visit: Yes Status: Acute Code(s): ISY8497 - SNOMED Code(s): 292138840 Comment: - SQ heparin. (7) Gout Current Visit: Yes Status: Acute Code(s): M10.9 - GOUT, UNSPECIFIED SNOMED Code(s): 39246577 Comment: allopurinol (8) Anemia Current Visit: Yes Status: Acute Code(s): D64.9 - ANEMIA, UNSPECIFIED SNOMED Code(s): 931669305 Comment: anemia of chronic disease. has required transfusions. (9) Debility Current Visit: Yes Status: Acute Code(s): R53.81 - OTHER MALAISE SNOMED Code(s): 41207388 Comment: He will need STR. (10) Severe protein-calorie malnutrition Current Visit: Yes Status: Acute Code(s): E43 - UNSPECIFIED SEVERE PROTEIN- CALORIE MALNUTRITION SNOMED Code(s): 535888190 Comment: - Prealbumin <3 -> 4 - Continue TPN (started 05/24/17) but very cautious in setting of likely continued infection. Status and Disposition: Inpatient for extensive MSSA infection management. Palliative care consulted.
[2017-06-02] MEDS: TPN* 24 HR with Dextrose 50% Water* 500 ML, Amino Acid Infusion 10%* 850 ML, Sterile Wa... CENTR SCH ×12 (18:19)
[2017-06-02] MEDS: Atorvastatin* 20 MG TAB PO SCH (18:19)
[2017-06-03] MEDS: [UNRECOGNIZED DRUG - OTHER] IVPB SCH ×4 (01:36→10:47)
[2017-06-03] MEDS: Heparin VIAL(*) 5000 UNITS/ML VIAL (FIVE THOUSAND) SUBCUT SCH ×3 (05:14→21:26)
[2017-06-03] MEDS: Acetaminophen TAB* 325 MG PO PRN ×2 (08:17→20:37)
[2017-06-03] MEDS: CMCS: Nebivolol TAB (NF) 2.5 MG TAB PO SCH (10:40)
[2017-06-03] MEDS: Allopurinol TAB* 100 MG PO SCH (10:41)
[2017-06-03] MEDS: amLODIPine TAB* 5 MG PO SCH (10:41)
[2017-06-03] MEDS: Thiamine TAB* 100 MG TAB PO SCH (10:41)
[2017-06-03] MEDS: Polyethylene Glycol 3350* 17 GM PACKET PO SCH (10:48)
[2017-06-03] MEDS: Thiamine IV* 250 MG in NS 0.9% 100 ML* 100 ML IV SCH (11:33)
[2017-06-03 12:18] LABS: Hematocrit 23 % (42-52); Hemoglobin 7.7 g/dl (14.0-18.0); Mean Corpuscular HGB Conc 34 g/dl (31-36); Mean Corpuscular Hemoglobin 29 pg (27-31); Mean Corpuscular Volume 86 fL (80-94); Mean Platelet Volume 6.9 um3 (7.4-10.4); Platelet Count 341 10^3/ul (150-450); Red Blood Count 2.64 10^6/ul (4.0-5.4); Red Cell Distribution Width 16 % (10.5-15); White Blood Count 8.4 10^3/ul (3.5-10.8)
[2017-06-03 12:32] LABS: EGFR Non-African American 134.3 (>60)
[2017-06-03 12:46] LABS: ABS Basophils 0.1 10^3/ul (0-0.2); ABS Eosinophils 0.6 10^3/ul (0-0.6); ABS Monocytes 1.2 10^3/ul (0-0.8); ABS Neutrophils 5.5 10^3/ul (1.5-7.7); ABS Nucleated RBC 0 10^3/ul; Nucleated Red Blood Cells % 0
[2017-06-03 13:53] LABS: Monocytes % 6 % (0-7)
[2017-06-03 14:30] LABS: Urine Appearance Clear; Urine Blood Negative (Negative); Urine Color Amber; Urine Ketones Negative (Negative); Urine Protein Negative (Negative); Urine Specific Gravity 1.018 (1.010-1.030); Urine Urobilinogen Negative (Negative)
[2017-06-03] MEDS: Atorvastatin* 20 MG TAB PO SCH (16:47)
[2017-06-03] MEDS: STERILE WATER FOR INJ IVPB SCH (16:49)
[2017-06-03] MEDS: CEFAZOLIN IVPB SCH (16:49)
--- NOTE | 2017-06-03 17:24 | PN ---
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 Palliative care Family History: Unchanged from Admission Social History: Unchanged from Admission Past Medical History: Unchanged from Admission Objective Active Medications: Acetaminophen (Tylenol Tab*) 650 mg PO Q4H PRN PRN Reason: FEVER Last Admin: 06/03/17 08:17 Dose: 650 mg Allopurinol (Zyloprim Tab*) 100 mg PO QAM [facility] Last Admin: 06/03/17 10:41 Dose: 100 mg Amlodipine Besylate (Norvasc Tab*) 5 mg PO DAILY [facility] Last Admin: 06/03/17 10:41 Dose: 5 mg Atorvastatin Calcium (Lipitor*) 20 mg PO 1700 [facility] Last Admin: 06/03/17 16:47 Dose: 20 mg Bisacodyl (Dulcolax Supp*) 10 mg NM DAILY PRN PRN Reason: CONSTIPATION Last Admin: 05/19/17 11:07 Dose: 10 mg Docusate Sodium (Colace Cap*) 100 mg PO DAILY PRN PRN Reason: CONSTIPATION Last Admin: 05/18/17 16:48 Dose: 100 mg Haloperidol Lactate (Haldol Inj Iv/Im*) 5 mg IV SLOW PU Q6H PRN PRN Reason: AGITATION Last Admin: 05/25/17 22:20 Dose: 5 mg Heparin Sodium (Porcine) (Heparin Flush Picc/Ml/Cvc(*)) 1 - 3 ml FLUSH 0600, 1800 [facility] PRN Reason: Protocol Last Admin: 06/03/17 05:14 Dose: 1 ml Heparin Sodium (Porcine) (Heparin Vial(*)) 5,000 units SUBCUT Q8HR [facility] Last Admin: 06/03/17 14:58 Dose: 5,000 units Hydralazine HCl (Apresoline Iv*) 10 mg IV Q4H PRN PRN Reason: Systolic >170 Last Admin: 06/01/17 20:55 Dose: 10 mg Thiamine HCl 250 mg/ Sodium (Chloride) 102.5 mls @ 205 mls/hr IV DAILY [facility] PRN Reason: Protocol Stop: 06/05/17 08:59 Last Admin: 06/03/17 11:33 Dose: 205 mls/hr Dextrose 500 ml/ Amino Acids 850 ml/ Sterile Water 150 ml/Fat Emulsion Intravenous 250 ml/ Sodium Chloride 150 meq/Potassium Chloride 60 meq/Calcium Gluconate 15 meq/Magnesium Sulfate 30 meq/Multivitamins 10 ml/ Trace Metals 1 ml / Phytonadione 0.2 mg/ Nutrition (Parenteral) 1,868.2471 mls @ 77.844 mls/hr CENTR 1700 [facility] PRN Reason: Protocol Last Admin: 06/02/17 18:19 Dose: 77.844 mls/hr Cefazolin Sodium 2 gm/ Sterile (Water) 20 mls @ 60 mls/hr IVPB 0100,0900,1700 [facility] Last Admin: 06/03/17 16:49 Dose: 60 mls/hr Magnesium Hydroxide (Milk Of Magnjim Liq*) 30 ml PO Q4H PRN PRN Reason: CONSTIPATION Last Admin: 05/19/17 11:05 Dose: 30 ml Nebivolol (Bystolic Tab (Nf)) 10 mg PO QAM [facility] Last Admin: 06/03/17 10:40 Dose: 10 mg Ondansetron HCl (Zofran Inj*) 4 mg IV Q6H PRN PRN Reason: NAUSEA/VOMITING Last Admin: 05/28/17 04:49 Dose: 4 mg Polyethylene Glycol/Electrolytes (Miralax*) 17 gm PO DAILY [facility] Last Admin: 06/03/17 10:48 Dose: 17 gm Polyvinyl Alcohol (Polyvinyl Alcohol 1.4% Opth*) 1 drop BOTH EYES Q2H PRN PRN Reason: DRY EYE Last Admin: 05/20/17 16:53 Dose: 1 drop Sodium Biphosphate/Sodium Phosphate (Fleet Enema*) 1 bottle NM DAILY PRN PRN Reason: CONSTIPATION Thiamine HCl (Vitamin B-1 Tab*) 100 mg PO DAILY [facility] Last Admin: 06/03/17 10:41 Dose: 100 mg Vital Signs - 8 hr 06/03/17 06/03/17 09:49 12:07 Temperature 97.6 F Pulse Rate 69 Respiratory 20 20 Rate Blood Pressure 118/58 (mmHg) O2 Sat by Pulse 98 Oximetry Oxygen Devices in Use Now: None Appearance: chronically ill appearing. Eyes: No Scleral Icterus, PERRLA Ears/Nose/Mouth/Throat: NL Teeth, Lips, Gums Respiratory: Symmetrical Chest Expansion and Respiratory Effort, Clear to Auscultation Cardiovascular: NL Sounds; No Murmurs; No JVD, RRR Abdominal: NL Sounds; No Tenderness; No Distention Extremities: No Edema, - - left knee less warm today. right shoulder slight pain with passive motion. Skin: No Rash or Ulcers Neurological: NL Sensation, - - oriented to name. not place or year ("1988") or situation. does know his . sleeping in bed but easily arrousable. Nutrition: Taking PO's Result Diagrams: 06/03/17 12:11 06/03/17 12:11 Additional Lab and Data: Laboratory Results - last 24 hr 06/02/17 06/03/17 06/03/17 16:39 00:59 09:27 WBC RBC Hgb Hct MCV MCH MCHC RDW Plt Count MPV Neut % (Auto) Lymph % (Auto) Sandoval % (Auto) Eos % (Auto) Baso % (Auto) Absolute Neuts (auto) Absolute Lymphs (auto) Absolute Monos (auto) Absolute Eos (auto) Absolute Basos (auto) Absolute Nucleated RBC Immature Gran % Neutrophils % Band Neutrophils % Lymphocytes % Monocytes % Eosinophils % Basophils % Metamyelocytes % Myelocytes % Nucleated RBC % Abs Neuts (Manual) Abs Lymphs (Manual) Abs Monocytes (Manual) Absolute Eos (Manual) Abs Basophils (Manual) Normal RBC Morphology Anisocytosis Sodium Potassium Chloride Carbon Dioxide Anion Gap BUN Creatinine Est GFR ( Amer) Est GFR (Non-Af Amer) BUN/Creatinine Ratio Glucose POC Glucose (mg/dL) 129 H 135 H 151 H Calcium C-Reactive Protein Urine Color Urine Appearance Urine pH Ur Specific [place] Urine Protein Urine Ketones Urine Blood Urine Nitrate Urine Bilirubin Urine Urobilinogen Ur Leukocyte Esterase Urine Glucose 06/03/17 06/03/17 06/03/17 12:11 12:11 12:51 WBC 8.4 RBC 2.64 L Hgb 7.7 L Hct 23 L MCV 86 MCH 29 MCHC 34 RDW 16 H Plt Count 341 MPV 6.9 L Neut % (Auto) Not Reportable Lymph % (Auto) Not Reportable Sandoval % (Auto) Not Reportable Eos % (Auto) Not Reportable Baso % (Auto) Not Reportable Absolute Neuts (auto) 5.5 Absolute Lymphs (auto) 1.0 Absolute Monos (auto) 1.2 H Absolute Eos (auto) 0.6 Absolute Basos (auto) 0.1 Absolute Nucleated RBC 0 Immature Gran % 6 Neutrophils % 70 Band Neutrophils % 3 Lymphocytes % 9 L Monocytes % 6 Eosinophils % 9 H Basophils % 0 Metamyelocytes % 1 Myelocytes % 2 H Nucleated RBC % 0 Abs Neuts (Manual) 5.9 Abs Lymphs (Manual) 0.8 L Abs Monocytes (Manual) 0.5 Absolute Eos (Manual) 0.8 H Abs Basophils (Manual) 0 Normal RBC Morphology Not Reportable Anisocytosis 1+ Sodium 131 L Potassium 4.1 Chloride 106 Carbon Dioxide 18 L Anion Gap 7 BUN 17 Creatinine 0.59 L Est GFR ( Amer) 172.7 Est GFR (Non-Af Amer) 134.3 BUN/Creatinine Ratio 28.8 H Glucose 113 H POC Glucose (mg/dL) 138 H Calcium 8.7 C-Reactive Protein 78.72 H Urine Color Urine Appearance Urine pH Ur Specific [place] Urine Protein Urine Ketones Urine Blood Urine Nitrate Urine Bilirubin Urine Urobilinogen Ur Leukocyte Esterase Urine Glucose 06/03/17 14:13 WBC RBC Hgb Hct MCV MCH MCHC RDW Plt Count MPV Neut % (Auto) Lymph % (Auto) Sandoval % (Auto) Eos % (Auto) Baso % (Auto) Absolute Neuts (auto) Absolute Lymphs (auto) Absolute Monos (auto) Absolute Eos (auto) Absolute Basos (auto) Absolute Nucleated RBC Immature Gran % Neutrophils % Band Neutrophils % Lymphocytes % Monocytes % Eosinophils % Basophils % Metamyelocytes % Myelocytes % Nucleated RBC % Abs Neuts (Manual) Abs Lymphs (Manual) Abs Monocytes (Manual) Absolute Eos (Manual) Abs Basophils (Manual) Normal RBC Morphology Anisocytosis Sodium Potassium Chloride Carbon Dioxide Anion Gap BUN Creatinine Est GFR ( Amer) Est GFR (Non-Af Amer) BUN/Creatinine Ratio Glucose POC Glucose (mg/dL) Calcium C-Reactive Protein Urine Color Fariha Urine Appearance Clear Urine pH 5.0 Ur Specific [place] 1.018 Urine Protein Negative Urine Ketones Negative Urine Blood Negative Urine Nitrate Negative Urine Bilirubin Negative Urine Urobilinogen Negative Ur Leukocyte Esterase Negative Urine Glucose Negative Microbiology and Other Data: Microbiology 05/29/17 16:45 Blood Venous Aerobic Blood Culture - Final No Growth Day 5 05/29/17 16:45 Blood Venous Anaerobic Blood Culture - Final No Growth Day 5 05/29/17 16:32 Blood Venous Aerobic Blood Culture - Final No Growth Day 5 05/29/17 16:32 Blood Venous Anaerobic Blood Culture - Final No Growth Day 5 05/21/17 17:58 Wound - Knee Left Anaerobic Culture - Final No Growth Day 4 05/21/17 17:58 Knee Left Gram Stain - Final 05/21/17 17:58 Knee Left Wound Culture - Final No Growth Day 4 05/21/17 16:36 Wound - Shoulder Right Anaerobic Culture - Final No Growth Day 4 05/21/17 16:36 Shoulder Right Gram Stain - Final 05/21/17 16:36 Shoulder Right Wound Culture - Final No Growth Day 4 05/21/17 16:36 Wound - Shoulder Right Anaerobic Culture - Final No Growth Day 4 05/21/17 16:36 Shoulder Right Gram Stain - Final 05/21/17 16:36 Shoulder Right Wound Culture - Final No Growth Day 4 04/23/17 10:30 Misc Source (See Comment) - Other Fungal Culture - Final 05/20/17 05:43 Stool Stool Occult Blood (KEEGAN) - Final 05/14/17 14:30 Misc Fluid (See Comment) - Abscess Gram Stain - Final 05/14/17 14:30 Misc Fluid (See Comment) - Abscess Body Fluid Culture - Final 05/14/17 14:30 Misc Fluid (See Comment) - Abscess Skin and Soft Tissue MRSA/ MSSA (PCR - Final Mrsa Negative S.aureus Positive 05/12/17 01:30 Blood Venous Aerobic Blood Culture - Final No Growth Day 5 05/12/17 01:30 Blood Venous Anaerobic Blood Culture - Final No Growth Day 5 05/12/17 01:30 Blood Venous Aerobic Blood Culture - Final No Growth Day 5 05/12/17 01:30 Blood Venous Anaerobic Blood Culture - Final No Growth Day 5 05/12/17 00:48 Blood Venous Aerobic Blood Culture - Final No Growth Day 5 05/12/17 00:48 Blood Venous Anaerobic Blood Culture - Final No Growth Day 5 05/09/17 17:00 Blood Venous Aerobic Blood Culture - Final No Growth Day 5 05/09/17 17:00 Blood Venous Anaerobic Blood Culture - Final No Growth Day 5 05/09/17 17:00 Blood Venous Aerobic Blood Culture - Final No Growth Day 5 05/09/17 17:00 Blood Venous Anaerobic Blood Culture - Final No Growth Day 5 05/08/17 19:15 Joint Fluid(Synovial) Gram Stain - Final 05/08/17 19:15 Joint Fluid(Synovial) Body Fluid Culture - Final No Growth Day 4 05/08/17 19:15 Joint Fluid(Synovial) Skin and Soft Tissue MRSA/MSSA (PCR - Final Mrsa Negative S.aureus Negative 05/08/17 19:15 Body Fluid Gram Stain - Final 05/08/17 19:15 Body Fluid Body Fluid Culture - Final No Growth Day 4 05/08/17 19:15 Body Fluid Skin and Soft Tissue MRSA/MSSA (PCR - Final Mrsa Negative S.aureus Positive 04/27/17 08:00 Blood Venous Aerobic Blood Culture - Final No Growth Day 5 04/27/17 08:00 Blood Venous Anaerobic Blood Culture - Final No Growth Day 5 04/27/17 06:10 Blood Venous Aerobic Blood Culture - Final Staphylococcus Epidermidis 04/27/17 06:10 Blood Venous Anaerobic Blood Culture - Final No Growth Day 5 04/27/17 06:10 Blood Venous Blood MRSA/MSSA (PCR) - Final Mrsa Negative S.aureus Negative 04/26/17 21:00 Wound - Wound Anaerobic Culture - Final 04/26/17 21:00 Wound - Wound Skin and Soft Tissue MRSA/MSSA (PCR - Final Mrsa Negative S.aureus Positive 04/26/17 21:00 Wound - Wound Gram Stain - Final 04/26/17 21:00 Wound - Wound Wound Culture - Final Staphylococcus Aureus 04/23/17 15:53 Wound - Knee Left Anaerobic Culture - Final 04/23/17 15:53 Wound - Knee Left Skin and Soft Tissue MRSA/MSSA (PCR - Final Mrsa Negative S.aureus Positive 04/23/17 15:53 Wound - Knee Left Gram Stain - Final 04/23/17 15:53 Wound - Knee Left Wound Culture - Final Staphylococcus Aureus 04/23/17 10:30 Joint Fluid(Synovial) - Knee Left Gram Stain - Final 04/23/17 10:30 Joint Fluid(Synovial) - Knee Left Body Fluid Culture - Final Staphylococcus Aureus 04/23/17 10:30 Joint Fluid(Synovial) - Knee Left Skin and Soft Tissue MRSA/ MSSA (PCR - Final Mrsa Negative S.aureus Positive 04/22/17 16:56 Wound - Abscess Anaerobic Culture - Final 04/22/17 16:56 Wound - Abscess Skin and Soft Tissue MRSA/MSSA (PCR - Final Mrsa Negative S.aureus Positive 04/22/17 16:56 Wound - Abscess Gram Stain - Final 04/22/17 16:56 Wound - Abscess Wound Culture - Final Staphylococcus Aureus 04/22/17 15:00 Wound - Other Anaerobic Culture - Final 04/22/17 15:00 Misc Source (See Comment) - Other Skin and Soft Tissue MRSA/ MSSA (PCR - Final Mrsa Negative S.aureus Positive 04/22/17 15:00 Misc Source (See Comment) - Other Gram Stain - Final 04/22/17 15:00 Misc Source (See Comment) - Other Wound Culture - Final Staphylococcus Aureus 04/21/17 05:40 Blood Venous Aerobic Blood Culture - Final Staphylococcus Aureus 04/21/17 05:40 Blood Venous Anaerobic Blood Culture - Final Staphylococcus Aureus 04/21/17 05:40 Blood Venous Blood MRSA/MSSA (PCR) - Final Mrsa Negative S.aureus Positive 04/21/17 04:40 Blood Venous Aerobic Blood Culture - Final Staphylococcus Aureus 04/21/17 04:40 Blood Venous Anaerobic Blood Culture - Final Staphylococcus Aureus 04/21/17 04:40 Blood Venous Blood MRSA/MSSA (PCR) - Final Mrsa Negative S.aureus Positive 04/22/17 06:20 Nasal Nasal Screen MRSA (PCR)(KEEGAN) - Final Mrsa Not Detected Assess/Plan/Problems-Billing Assessment: 76 yo M with h/o HTN, ETOH abuse, multiple joint replacements, GI bleed (and partial colon resection due to bleed) who presented to the ER with c/o fever and severe back pain and was ultimately found to have a very large epidural abscess/septic joints, R septic shoulder, L septic knee, right psoas abscess s/ p drainage in the setting of MSSA bacteremia with stay complicated by delirium. - Patient Problems (1) Encephalopathy Current Visit: Yes Status: Acute Code(s): G93.40 - ENCEPHALOPATHY, UNSPECIFIED SNOMED Code(s): 67708848 Comment: - multifactorial associated with infection. 4-5 beers daily prior to admission, now on high dose thiamine for possible Wernicke's. Has not made much progress. declined mentation today. Palliative care consulted on 06/01. (2) Epidural abscess Current Visit: Yes Status: Acute Code(s): G06.2 - EXTRADURAL AND SUBDURAL ABSCESS, UNSPECIFIED SNOMED Code(s): 32906518 Comment: The patient presented with a very large epidural abscess with associated septic arthristis He underwent multilevel skip laminectomies from C6 -7- L5 on 04/22/17. Continue rifampin and ancef per Dr. Franklin. Discussed about any further imaging, not at this time. consider repeat CT or MRI imaging given known paraspinal fluid collections that were not able to be attempted to drain on 05/14. trending CRP (rising again now) . intermittent fevers and continued encephalopathy. (3) MSSA bacteremia Current Visit: Yes Status: Acute Code(s): R78.81 - BACTEREMIA SNOMED Code( s): 192098163 Comment: (4) Septic arthritis of knee, left Current Visit: Yes Status: Acute Code(s): M00.9 - PYOGENIC ARTHRITIS, UNSPECIFIED SNOMED Code(s): 063250673 Comment: The patient is s/p washout/debridement and liner exchange of the left knee total arthroplasty 04/23/17, Left knee aspiration on 05/08/17 and repeat washout 05/21 Cultures negative from last washouts Continue ancef and rifampin slightly warm 06/01, 06/02. better 06/03. Discussed with ortho. no further intervention needed. (5) Septic arthritis of shoulder, right Current Visit: Yes Status: Acute Code(s): M00.9 - PYOGENIC ARTHRITIS, UNSPECIFIED SNOMED Code(s): 64113663 Comment: The patient is s/p washout/debridement of R shoulder 04/26/17 and washout 05/21 Cultures negative from last washouts Continue ancef and rifampin. (6) DVT prophylaxis Current Visit: Yes Status: Acute Code(s): XBP0830 - SNOMED Code(s): 154054243 Comment: - SQ heparin. (7) Gout Current Visit: Yes Status: Acute Code(s): M10.9 - GOUT, UNSPECIFIED SNOMED Code(s): 13902427 Comment: allopurinol (8) Anemia Current Visit: Yes Status: Acute Code(s): D64.9 - ANEMIA, UNSPECIFIED SNOMED Code(s): 161975893 Comment: anemia of chronic disease. has required transfusions. (9) Debility Current Visit: Yes Status: Acute Code(s): R53.81 - OTHER MALAISE SNOMED Code(s): 34609010 Comment: He will need STR. (10) Severe protein-calorie malnutrition Current Visit: Yes Status: Acute Code(s): E43 - UNSPECIFIED SEVERE PROTEIN- CALORIE MALNUTRITION SNOMED Code(s): 721201496 Comment: - Prealbumin <3 -> 4 - Continue TPN (started 05/24/17) but very cautious in setting of likely continued infection. Status and Disposition: Inpatient for extensive MSSA infection management. Palliative care consulted.
[2017-06-03] MEDS: TPN* 24 HR with Dextrose 50% Water* 500 ML, Amino Acid Infusion 10%* 850 ML, Sterile Wa... CENTR SCH ×12 (17:26)
[2017-06-03] MEDS ORDERED: Alteplase (CATHFLO)* 2 MG/2 ML VIAL IV ONE (17:29)
[2017-06-03] MEDS ORDERED: Alteplase (CATHFLO)* 2 MG VIAL IV ONE (17:29)
[2017-06-04] MEDS: STERILE WATER FOR INJ IVPB SCH ×3 (00:38→18:20)
[2017-06-04] MEDS: CEFAZOLIN IVPB SCH ×3 (00:38→18:20)
[2017-06-04] MEDS: Heparin VIAL(*) 5000 UNITS/ML VIAL (FIVE THOUSAND) SUBCUT SCH ×3 (06:02→21:19)
[2017-06-04 07:16] LABS: EGFR Non-African American 158.9 (>60)
[2017-06-04] MEDS: amLODIPine TAB* 5 MG PO SCH (10:21)
[2017-06-04] MEDS: CMCS: Nebivolol TAB (NF) 2.5 MG TAB PO SCH (10:21)
[2017-06-04] MEDS: Allopurinol TAB* 100 MG PO SCH (10:22)
[2017-06-04] MEDS: Thiamine TAB* 100 MG TAB PO SCH (10:22)
[2017-06-04] MEDS: Polyethylene Glycol 3350* 17 GM PACKET PO SCH (10:27)
--- NOTE | 2017-06-04 11:11 | CONSULT ---
Palliative / Hospice Consult Ordering Provider: Tariq Raymundo - Subjective Code Status: Full Code Advance Directives Location: No Advance Directives HCP Completed: Yes - Sameera Bonilla - History or Present Illness History or Present Illness: This 76 year old man has been hospitalized for 2 1/2 months with MSSA sepsis involving abcesses in his epidural space, his left knee and his right shoulder. He has had abscess drainage, has been on continuous IV antibiotics, has had failing nutritional status (last albumin 2.1 and prealbumin of 4) despite TPN, has been encepahlopathic with waxing and waning mental status. He has a very grave prognosis and is unlikelyto clear these infections at this point, as hehas no nutritional reserves and is not even able to mount a WBC response. His and HCP has maintaine full code status and has been optimistic about his recovery. I was asked to consult regarding advance directives and goals of care. I saw the patient in his room yesterday (06/03) and examined him, but he was unable to have any conversation, was completely disoriented and unable to articulate a sentence. I tried calling his , but she was not home, and had no answering machine or voice mail. Today (06/04) she called me back. Lab Values: Abnormal Lab Results 06/03/17 06/03/17 06/03/17 12:11 12:11 12:51 WBC 8.4 RBC 2.64 L Hgb 7.7 L Hct 23 L MCV 86 MCH 29 MCHC 34 RDW 16 H Plt Count 341 MPV 6.9 L Neut % (Auto) Not Reportable Lymph % (Auto) Not Reportable [place] % (Auto) Not Reportable Eos % (Auto) Not Reportable Baso % (Auto) Not Reportable Absolute Neuts (auto) 5.5 Absolute Lymphs (auto) 1.0 Absolute Monos (auto) 1.2 H Absolute Eos (auto) 0.6 Absolute Basos (auto) 0.1 Absolute Nucleated RBC 0 Immature Gran % 6 Neutrophils % 70 Band Neutrophils % 3 Lymphocytes % 9 L Monocytes % 6 Eosinophils % 9 H Basophils % 0 Metamyelocytes % 1 Myelocytes % 2 H Nucleated RBC % 0 Abs Neuts (Manual) 5.9 Abs Lymphs (Manual) 0.8 L Abs Monocytes (Manual) 0.5 Absolute Eos (Manual) 0.8 H Abs Basophils (Manual) 0 Normal RBC Morphology Not Reportable Anisocytosis 1+ Sodium 131 L Potassium 4.1 Chloride 106 Carbon Dioxide 18 L Anion Gap 7 BUN 17 Creatinine 0.59 L Est GFR ( Amer) 172.7 Est GFR (Non-Af Amer) 134.3 BUN/Creatinine Ratio 28.8 H Glucose 113 H POC Glucose (mg/dL) 138 H Calcium 8.7 Phosphorus Magnesium Total Bilirubin AST ALT Alkaline Phosphatase C-Reactive Protein 78.72 H Total Protein Albumin Globulin Albumin/Globulin Ratio Prealbumin Triglycerides Cholesterol Urine Color Urine Appearance Urine pH Ur Specific [place] Urine Protein Urine Ketones Urine Blood Urine Nitrate Urine Bilirubin Urine Urobilinogen Ur Leukocyte Esterase Urine Glucose 06/03/17 06/03/17 06/03/17 14:13 18:19 23:49 WBC RBC Hgb Hct MCV MCH MCHC RDW Plt Count MPV Neut % (Auto) Lymph % (Auto) [place] % (Auto) Eos % (Auto) Baso % (Auto) Absolute Neuts (auto) Absolute Lymphs (auto) Absolute Monos (auto) Absolute Eos (auto) Absolute Basos (auto) Absolute Nucleated RBC Immature Gran % Neutrophils % Band Neutrophils % Lymphocytes % Monocytes % Eosinophils % Basophils % Metamyelocytes % Myelocytes % Nucleated RBC % Abs Neuts (Manual) Abs Lymphs (Manual) Abs Monocytes (Manual) Absolute Eos (Manual) Abs Basophils (Manual) Normal RBC Morphology Anisocytosis Sodium Potassium Chloride Carbon Dioxide Anion Gap BUN Creatinine Est GFR ( Amer) Est GFR (Non-Af Amer) BUN/Creatinine Ratio Glucose POC Glucose (mg/dL) 131 H 151 H Calcium Phosphorus Magnesium Total Bilirubin AST ALT Alkaline Phosphatase C-Reactive Protein Total Protein Albumin Globulin Albumin/Globulin Ratio Prealbumin Triglycerides Cholesterol Urine Color [place] Urine Appearance Clear Urine pH 5.0 Ur Specific [place] 1.018 Urine Protein Negative Urine Ketones Negative Urine Blood Negative Urine Nitrate Negative Urine Bilirubin Negative Urine Urobilinogen Negative Ur Leukocyte Esterase Negative Urine Glucose Negative 06/04/17 06/04/17 06/04/17 06:12 06:15 08:02 WBC RBC Hgb Hct MCV MCH MCHC RDW Plt Count MPV Neut % (Auto) Lymph % (Auto) [place] % (Auto) Eos % (Auto) Baso % (Auto) Absolute Neuts (auto) Absolute Lymphs (auto) Absolute Monos (auto) Absolute Eos (auto) Absolute Basos (auto) Absolute Nucleated RBC Immature Gran % Neutrophils % Band Neutrophils % Lymphocytes % Monocytes % Eosinophils % Basophils % Metamyelocytes % Myelocytes % Nucleated RBC % Abs Neuts (Manual) Abs Lymphs (Manual) Abs Monocytes (Manual) Absolute Eos (Manual) Abs Basophils (Manual) Normal RBC Morphology Anisocytosis Sodium 131 L Potassium 4.5 Chloride 107 Carbon Dioxide 19 L Anion Gap 5 BUN 15 Creatinine 0.51 L Est GFR ( Amer) 204.3 Est GFR (Non-Af Amer) 158.9 BUN/Creatinine Ratio 29.4 H Glucose 88 POC Glucose (mg/dL) 110 H 127 H Calcium 8.3 L Phosphorus 6.0 H Magnesium 1.7 L Total Bilirubin 0.30 AST 43 H ALT 15 Alkaline Phosphatase 158 H C-Reactive Protein Total Protein 5.9 L Albumin 2.1 L Globulin 3.8 Albumin/Globulin Ratio 0.6 L Prealbumin 4 L Triglycerides 103 Cholesterol 84 Urine Color Urine Appearance Urine pH Ur Specific [place] Urine Protein Urine Ketones Urine Blood Urine Nitrate Urine Bilirubin Urine Urobilinogen Ur Leukocyte Esterase Urine Glucose Laboratory Last Values WBC 8.4 10^3/ul (3.5-10.8) 06/03/17 12:11 RBC 2.64 10^6/ul (4.0-5.4) L 06/03/17 12:11 Hgb 7.7 g/dl (14.0-18.0) L 06/03/17 12:11 Hct 23 % (42-52) L 06/03/17 12:11 MCV 86 fL (80-94) 06/03/17 12:11 MCH 29 pg (27-31) 06/03/17 12:11 MCHC 34 g/dl (31-36) 06/03/17 12:11 RDW 16 % (10.5-15) H 06/03/17 12:11 Plt Count 341 10^3/ul (150-450) 06/03/17 12:11 MPV 6.9 um3 (7.4-10.4) L 06/03/17 12:11 Neut % (Auto) Not Reportable 06/03/17 12:11 Lymph % (Auto) Not Reportable 06/03/17 12:11 [place] % (Auto) Not Reportable 06/03/17 12:11 Eos % (Auto) Not Reportable 06/03/17 12:11 Baso % (Auto) Not Reportable 06/03/17 12:11 Absolute Neuts (auto) 5.5 10^3/ul (1.5-7.7) 06/03/17 12:11 Absolute Lymphs (auto) 1.0 10^3/ul (1.0-4.8) 06/03/17 12:11 Absolute Monos (auto) 1.2 10^3/ul (0-0.8) H 06/03/17 12:11 Absolute Eos (auto) 0.6 10^3/ul (0-0.6) 06/03/17 12:11 Absolute Basos (auto) 0.1 10^3/ul (0-0.2) 06/03/17 12:11 Absolute Nucleated RBC 0 10^3/ul 06/03/17 12:11 Immature Gran % 6 % (0-9) 06/03/17 12:11 Neutrophils % 70 % (38-83) 06/03/17 12:11 Band Neutrophils % 3 % (0-8) 06/03/17 12:11 Lymphocytes % 9 % (25-47) L 06/03/17 12:11 Monocytes % 6 % (0-7) 06/03/17 12:11 Eosinophils % 9 % (0-6) H 06/03/17 12:11 Basophils % 0 % (0-2) 06/03/17 12:11 Metamyelocytes % 1 % (0-2) 06/03/17 12:11 Myelocytes % 2 % (0-1) H 06/03/17 12:11 Nucleated RBC % 0 06/03/17 12:11 Abs Neuts (Manual) 5.9 10^3/ul (1.5-7.7) 06/03/17 12:11 Abs Lymphs (Manual) 0.8 10^3/ul (1.0-4.8) L 06/03/17 12:11 Abs Monocytes (Manual) 0.5 10^3/ul (0-0.8) 06/03/17 12:11 Absolute Eos (Manual) 0.8 10^3/ul (0-0.6) H 06/03/17 12:11 Abs Basophils (Manual) 0 10^3/ul (0-0.2) 06/03/17 12:11 Normal RBC Morphology Not Reportable 06/03/17 12:11 Polychromasia 1+ 05/19/17 03:15 Anisocytosis 1+ 06/03/17 12:11 Microcytosis 2+ 05/19/17 03:15 INR (Anticoag Therapy) 1.59 (0.77-1.02) H 05/21/17 06:06 APTT 35.6 seconds (26.0-36.3) 04/23/17 00:48 Patient Temperature Not Reportable 04/23/17 00:48 ABG pH 7.44 (7.35-7.45) 04/23/17 00:48 ABG pH (Temp Correct) Not Reportable 04/23/17 00:48 ABG pCO2 31 mmHg (35-45) L 04/23/17 00:48 ABG pCO2 (Temp Corrct Not Reportable 04/23/17 00:48 ABG pO2 128 mmHg (80-100) H 04/23/17 00:48 ABG pO2 (Temp Correct Not Reportable 04/23/17 00:48 ABG HCO3 23.0 mmol/L (19-31) 04/23/17 00:48 ABG O2 Saturation 99.2 % (95-98) H 04/23/17 00:48 ABG Base Excess -2.5 (-2.0-2.0) L 03 00:48 Respiration Rate 14 04/23/17 00:48 O2 Delivery Device ventilator 04/23/17 00:48 Ventilator Type 600 04/23/17 00:48 Vent Mode apv 04/23/17 00:48 FiO2 50 04/23/17 00:48 Inspiratory Time 1.0 04/23/17 00:48 PEEP 5 04/23/17 00:48 Pressure Support Not Reportable 04/23/17 00:48 Pressure Control Not Reportable 04/23/17 00:48 EPAP Not Reportable 04/23/17 00:48 IPAP Not Reportable 04/23/17 00:48 BiPAP Not Reportable 04/23/17 00:48 Sodium 131 mmol/L (139-145) L 06/04/17 06:12 Potassium 4.5 mmol/L (3.5-5.0) 06/04/17 06:12 Chloride 107 mmol/L (101-111) 06/04/17 06:12 Carbon Dioxide 19 mmol/L (22-32) L 06/04/17 06:12 Anion Gap 5 mmol/L (2-11) 06/04/17 06:12 BUN 15 mg/dL (6-24) 06/04/17 06:12 Creatinine 0.51 mg/dL (0.67-1.17) L 06/04/17 06:12 Est GFR ( Amer) 204.3 (>60) 06/04/17 06:12 Est GFR (Non-Af Amer) 158.9 (>60) 06/04/17 06:12 BUN/Creatinine Ratio 29.4 (8-20) H 06/04/17 06:12 Glucose 88 mg/dL (70-100) 06/04/17 06:12 POC Glucose (mg/dL) 127 mg/dL (70-100) H 06/04/17 08:02 Lactic Acid 1.1 mmol/L (0.5-2.0) 04/21/17 08:43 Calcium 8.3 mg/dL (8.6-10.3) L 06/04/17 06:12 Phosphorus 6.0 mg/dL (2.5-5.0) H 06/04/17 06:12 Magnesium 1.7 mg/dL (1.9-2.7) L 06/04/17 06:12 Iron < 15 ug/dL (50-212) L 05/12/17 14:24 TIBC 151 mcg/dL (250-450) L 05/12/17 14:24 % Saturation 10 % (15-55) L 05/12/17 14:24 Unsat Iron Binding 136.83725 ug/dL 05/12/17 14:24 Transferrin 108 mg/dL (203-362) L 05/12/17 14:24 Ferritin 1062.7 ng/mL (24-336) H 05/12/17 14:24 Total Bilirubin 0.30 mg/dL (0.2-1.0) 06/04/17 06:12 AST 43 U/L (13-39) H 06/04/17 06:12 ALT 15 U/L (7-52) 06/04/17 06:12 Alkaline Phosphatase 158 U/L (34-104) H 06/04/17 06:12 Ammonia 46 mcmol/L (16-53) 05/29/17 08:30 Troponin I 0.03 ng/mL (<0.04) 04/21/17 04:40 C-Reactive Protein 78.72 mg/L (< 5.00) H 06/03/17 12:11 Total Protein 5.9 g/dL (6.4-8.9) L 06/04/17 06:12 Albumin 2.1 g/dL (3.2-5.2) L 06/04/17 06:12 Globulin 3.8 g/dL (2-4) 06/04/17 06:12 Albumin/Globulin Ratio 0.6 (1-3) L 06/04/17 06:12 Prealbumin 4 mg/dL (18-38) L 06/04/17 06:12 Triglycerides 103 mg/dL 06/04/17 06:12 Cholesterol 84 mg/dL 06/04/17 06:12 Lipase 28 U/L (11.0-82.0) 04/21/17 04:40 Urine Color [place] 06/03/17 14:13 Urine Appearance Clear 06/03/17 14:13 Urine pH 5.0 (5-9) 06/03/17 14:13 Ur Specific [place] 1.018 (1.010-1.030) 06/03/17 14:13 Urine Protein Negative (Negative) 06/03/17 14:13 Urine Ketones Negative (Negative) 06/03/17 14:13 Urine Blood Negative (Negative) 06/03/17 14:13 Urine Nitrate Negative (Negative) 06/03/17 14:13 Urine Bilirubin Negative (Negative) 06/03/17 14:13 Urine Urobilinogen Negative (Negative) 06/03/17 14:13 Ur Leukocyte Esterase Negative (Negative) 06/03/17 14:13 Urine Glucose Negative (Negative) 06/03/17 14:13 Fluid Source Synovial fluid 05/08/17 19:15 Fluid Volume 20 mL 05/08/17 19:15 Fluid Color Red 05/08/17 19:15 Fluid Appearance Bloody 05/08/17 19:15 Fluid WBC 8676 /mcL (0-457572) 05/08/17 19:15 Fluid RBC 92334 /mcL 05/08/17 19:15 Fluid Tot Cell Count 100 05/08/17 19:15 Fluid Neutrophils 93 % 05/08/17 19:15 Fluid Band Neutrophils 3 % 05/08/17 19:15 Fluid Lymphocytes 3 % 05/08/17 19:15 Fluid Reactive Lymphs Cancelled 05/14/17 14:30 Fluid Monocytes 1 % 05/08/17 19:15 Fluid Eosinophils Cancelled 05/14/17 14:30 Fluid Basophils Cancelled 05/14/17 14:30 Fluid Promyelocytes Cancelled 05/14/17 14:30 Fluid Myelocytes Cancelled 05/14/17 14:30 Fluid Metamyelocytes Cancelled 05/14/17 14:30 Fluid Blast Cells Cancelled 05/14/17 14:30 Fluid Nucleated RBCs Cancelled 05/14/17 14:30 Fluid Other Cells 1 04/23/17 10:30 Fluid Cell Count Rvw By 05/08/17 19:15 Fluid Crystals None seen (None Seen) 05/08/17 19:15 Fluid Total Protein 3.1 g/dL 04/23/17 10:30 Fluid Comment Cancelled 05/14/17 14:30 Blood Type O Positive 05/29/17 16:32 Antibody Screen Negative 05/29/17 16:32 Crossmatch See Detail 05/29/17 16:32 - Objective Active Medications: Acetaminophen (Tylenol Tab*) 650 mg PO Q4H PRN PRN Reason: FEVER Last Admin: 06/03/17 20:37 Dose: 650 mg Allopurinol (Zyloprim Tab*) 100 mg PO QAM [facility] Last Admin: 06/04/17 10:22 Dose: 100 mg Amlodipine Besylate (Norvasc Tab*) 5 mg PO DAILY [facility] Last Admin: 06/04/17 10:21 Dose: 5 mg Atorvastatin Calcium (Lipitor*) 20 mg PO 1700 [facility] Last Admin: 06/03/17 16:47 Dose: 20 mg Bisacodyl (Dulcolax Supp*) 10 mg RI DAILY PRN PRN Reason: CONSTIPATION Last Admin: 05/19/17 11:07 Dose: 10 mg Docusate Sodium (Colace Cap*) 100 mg PO DAILY PRN PRN Reason: CONSTIPATION Last Admin: 05/18/17 16:48 Dose: 100 mg Haloperidol Lactate (Haldol Inj Iv/Im*) 5 mg IV SLOW PU Q6H PRN PRN Reason: AGITATION Last Admin: 05/25/17 22:20 Dose: 5 mg Heparin Sodium (Porcine) (Heparin Flush Picc/Ml/Cvc(*)) 1 - 3 ml FLUSH 0600, 1800 [facility] PRN Reason: Protocol Last Admin: 06/04/17 06:10 Dose: 1 ml Heparin Sodium (Porcine) (Heparin Vial(*)) 5,000 units SUBCUT Q8HR [facility] Last Admin: 06/04/17 06:02 Dose: 5,000 units Hydralazine HCl (Apresoline Iv*) 10 mg IV Q4H PRN PRN Reason: Systolic >170 Last Admin: 06/01/17 20:55 Dose: 10 mg Thiamine HCl 250 mg/ Sodium (Chloride) 102.5 mls @ 205 mls/hr IV DAILY [facility] PRN Reason: Protocol Stop: 06/05/17 08:59 Last Admin: 06/03/17 11:33 Dose: 205 mls/hr Dextrose 500 ml/ Amino Acids 850 ml/ Sterile Water 150 ml/Fat Emulsion Intravenous 250 ml/ Sodium Chloride 150 meq/Potassium Chloride 60 meq/Calcium Gluconate 15 meq/Magnesium Sulfate 30 meq/Multivitamins 10 ml/ Trace Metals 1 ml / Phytonadione 0.2 mg/ Nutrition (Parenteral) 1,868.2471 mls @ 77.844 mls/hr CENTR 1700 [facility] PRN Reason: Protocol Last Admin: 06/03/17 17:26 Dose: 77.844 mls/hr Cefazolin Sodium 2 gm/ Sterile (Water) 20 mls @ 60 mls/hr IVPB 0100,0900,1700 [facility] Last Admin: 06/04/17 10:22 Dose: 60 mls/hr Magnesium Hydroxide (Milk Of Magnesia Liq*) 30 ml PO Q4H PRN PRN Reason: CONSTIPATION Last Admin: 05/19/17 11:05 Dose: 30 ml Nebivolol (Bystolic Tab (Nf)) 10 mg PO QAM [facility] Last Admin: 06/04/17 10:21 Dose: 10 mg Ondansetron HCl (Zofran Inj*) 4 mg IV Q6H PRN PRN Reason: NAUSEA/VOMITING Last Admin: 05/28/17 04:49 Dose: 4 mg Polyethylene Glycol/Electrolytes (Miralax*) 17 gm PO DAILY [facility] Last Admin: 06/04/17 10:27 Dose: Not Given Polyvinyl Alcohol (Polyvinyl Alcohol 1.4% Opth*) 1 drop BOTH EYES Q2H PRN PRN Reason: DRY EYE Last Admin: 05/20/17 16:53 Dose: 1 drop Sodium Biphosphate/Sodium Phosphate (Fleet Enema*) 1 bottle RI DAILY PRN PRN Reason: CONSTIPATION Thiamine HCl (Vitamin B-1 Tab*) 100 mg PO DAILY [facility] Last Admin: 06/04/17 10:22 Dose: 100 mg Vital Signs: Vital Signs: Temp Pulse Resp BP Pulse Ox 97.2 F 74 16 149/67 100 06/04/17 07:24 06/04/17 07:24 06/04/17 07:24 06/04/17 07:24 06/04/17 07:24 Patient Weight: Weight 115 lb Intake and Output: Intake & Output 06/02/17 06/03/17 06/04/17 06/05/17 06:59 06:59 06:59 06:59 Intake Total 4857 4670 1854 Output Total 300 150 Balance 4857 4370 1704 Intake: IV Fluids 4097 3400 568 tpn 4097 3400 568 IVPB 110 thiamine 110 TPN/PPN 686 Oral 760 1160 600 Output: Urine 300 150 Other: Estimated Void Medium Medium Large Date of Last Bowel 06/03/17 Movement # Bowel Movements 1 1 Estimated Stool Amount Medium Small # Voids 1 2 1 ADLs: Meal Record Start: 04/22/17 00: 18 Freq: Status: Active Protocol: Created 04/22/17 00:18 [id number] (Rec: 04/22/17 00:18 [id number] ICU-M01) Document 04/22/17 09:59 [id number] (Rec: 04/22/17 09:59 [id number] ICU-C15) Document 04/22/17 13:00 [id number] (Rec: 04/22/17 14:51 [id number] ICU-C15) Document 04/23/17 13:00 YWR1104 (Rec: 04/23/17 13:18 [id number] ICU-C10) Document 04/24/17 09:00 [id number] (Rec: 04/24/17 12:13 [id number] ICU-C15) Document 04/24/17 13:00 [id number] (Rec: 04/24/17 15:10 [id number] ICU-C15) Document 04/24/17 18:00 [id number] (Rec: 04/24/17 19:26 YKS1075 ICU-C14) Document 04/25/17 09:00 SQI1915 (Rec: 04/25/17 12:16 [id number] ICU-C15) Document 04/25/17 13:00 [id number] (Rec: 04/25/17 18:00 [id number] ICU-M01) Document 04/25/17 18:00 [id number] (Rec: 04/25/17 18:08 [id number] ICU-M01) Document 04/26/17 09:00 ZNI5831 (Rec: 04/26/17 10:29 ZRH7085 ICU-M01) Document 04/26/17 13:00 HVF4774 (Rec: 04/26/17 16:32 [id number] ICU-C10) Document 04/26/17 18:00 TAZ7673 (Rec: 04/26/17 18:47 NPI0668 ICU-C10) Document 04/27/17 08:39 YRD7417 (Rec: 04/27/17 08:39 AKO1413 ICU-C16) Document 04/27/17 13:00 HNE7046 (Rec: 04/27/17 13:16 [id number] ICU-C16) Document 04/27/17 17:54 NSR4950 (Rec: 04/27/17 17:54 SGX0517 ICU-C16) Document 04/28/17 12:16 [id number] (Rec: 04/28/17 12:16 ERJ3994 ICU-C16) Document 04/29/17 09:00 JSK2935 (Rec: 04/29/17 20:24 WVH7277 ICU-C10) Document 04/29/17 13:00 FXZ1849 (Rec: 04/29/17 20:24 [id number] ICU-C10) Document 04/29/17 18:00 [id number] (Rec: 04/29/17 20:24 LTG8310 ICU-C10) Document 04/30/17 09:00 LQA6762 (Rec: 04/30/17 18:03 HAZ2953 ICU-C10) Document 04/30/17 13:00 [id number] (Rec: 04/30/17 18:03 ZUT6127 ICU-C10) Document 04/30/17 18:00 FPI6530 (Rec: 04/30/17 18:03 XNT9559 ICU-C10) Document 05/01/17 09:00 YVZ0225 (Rec: 05/01/17 09:51 [id number] ICU-M01) Document 05/01/17 13:00 DZR9637 (Rec: 05/01/17 14:08 WAI8543 ICU-M01) Document 05/01/17 18:00 ZQM2598 (Rec: 05/01/17 18:30 WZS2192 ICU-C16) Document 05/02/17 09:00 VYO4465 (Rec: 05/02/17 09:49 GTB0775 ICU-C16) Document 05/02/17 13:00 EQM9641 (Rec: 05/02/17 13:26 RGM5172 ICU-C16) Document 05/02/17 17:50 FYW7007 (Rec: 05/02/17 17:50 DCV2023 ICU-M01) Document 05/03/17 09:00 AYH2349 (Rec: 05/03/17 09:08 ZDL2452 ICU-C16) Document 05/03/17 13:00 VOQ5392 (Rec: 05/03/17 14:46 ROI7707 ICU-C16) Document 05/03/17 18:04 YGX1473 (Rec: 05/03/17 18:04 AQX5380 ICU-C16) ADLs: Meal Record Start: 05/06/17 16: 24 Freq: 0900,1400,1800 Status: Active Protocol: Created 05/06/17 16:24 [id number] (Rec: 05/06/17 16:24 [id number] SSU-M16) Document 05/06/17 18:00 NTA7256 (Rec: 05/06/17 22:59 TKL7477 SSU-M17) Document 05/08/17 09:27 OPL3876 (Rec: 05/08/17 09:27 JDX9505 SSU-C01) Document 05/08/17 14:00 FJJ9742 (Rec: 05/08/17 14:05 KKA4792 SSU-C01) Document 05/09/17 09:55 GMR2037 (Rec: 05/09/17 09:55 NFN6379 SSU-C08) Document 05/09/17 13:30 WNT2021 (Rec: 05/09/17 13:30 SUA9336 SSU-C05) Document 05/09/17 18:28 OUM8157 (Rec: 05/09/17 18:28 WSC5828 SSU-M18) Document 05/10/17 14:16 NDB1525 (Rec: 05/10/17 14:17 VBB9818 SSU-C19) Document 05/10/17 18:33 TSX7803 (Rec: 05/10/17 18:33 JXN0653 SSU-M07) Document 05/11/17 10:01 FNU7942 (Rec: 05/11/17 10:01 YMX7938 SSU-C19) Document 05/11/17 18:53 GAP6511 (Rec: 05/11/17 18:54 ZEM3488 MED-C09) Document 05/12/17 09:48 DUW7507 (Rec: 05/12/17 09:48 DMD8588 MED-C12) Document 05/12/17 14:05 WWW0024 (Rec: 05/12/17 14:05 URO1427 MED-C12) Document 05/12/17 18:42 OYG6778 (Rec: 05/12/17 18:43 OSB5201 MED-C04) Document 05/13/17 14:00 QWE8908 (Rec: 05/13/17 14:31 NQA8284 MED-C09) Document 05/13/17 18:22 IMD3723 (Rec: 05/13/17 18:23 IYM0691 MED-C09) Document 05/14/17 09:00 GNX4694 (Rec: 05/14/17 09:20 JHK0977 MED-C09) Document 05/14/17 14:00 NOD1090 (Rec: 05/14/17 14:25 GAO6649 MED-C09) Document 05/14/17 18:00 PZN1386 (Rec: 05/14/17 18:27 VKN3501 MED-C11) Document 05/15/17 09:00 EFK0066 (Rec: 05/15/17 09:42 UEX0370 MED-C09) Document 05/15/17 14:00 XVE1612 (Rec: 05/15/17 14:37 HKE4176 MED-C09) Document 05/15/17 18:00 TSN3127 (Rec: 05/15/17 22:22 OLO5659 MED-C09) Document 05/16/17 09:00 RQM6688 (Rec: 05/16/17 09:36 SJD1019 MED-C09) Document 05/16/17 14:00 JSS6470 (Rec: 05/16/17 14:49 OZX7351 MED-C09) Document 05/16/17 18:00 ZUJ9223 (Rec: 05/16/17 18:30 BSS6629 MED-C11) Document 05/17/17 09:00 KBQ7217 (Rec: 05/17/17 10:04 WOM7886 MED-C11) Document 05/17/17 14:00 OGX1293 (Rec: 05/17/17 14:19 PMV5231 MED-C09) Document 05/17/17 18:00 JHG8036 (Rec: 05/17/17 18:30 CAZ8240 MED-C11) Document 05/18/17 09:00 XIY0339 (Rec: 05/18/17 09:19 FVN2607 MED-C09) Document 05/18/17 14:00 XJW9393 (Rec: 05/18/17 14:26 YBD5755 MED-C09) Document 05/18/17 18:00 MSG0221 (Rec: 05/18/17 19:52 WCJ5801 MED-C09) Document 05/19/17 09:00 GLR1936 (Rec: 05/19/17 10:49 CPR3681 MED-C11) Document 05/19/17 14:00 NGV6481 (Rec: 05/19/17 15:19 KOH8750 MED-C11) Document 05/19/17 18:00 HNT2405 (Rec: 05/19/17 21:01 BWI9772 MED-C09) Document 05/20/17 09:00 QNP4940 (Rec: 05/20/17 11:39 KTB9309 MED-C09) Document 05/20/17 14:00 YSL2448 (Rec: 05/20/17 14:28 [id number] MED-C09) Document 05/20/17 18:00 VMO2428 (Rec: 05/20/17 19:32 ZFO2287 MED-C11) Document 05/21/17 09:00 LSI4063 (Rec: 05/21/17 10:48 ZPS0317 MED-C11) Document 05/21/17 14:00 EOD3604 (Rec: 05/21/17 14:31 IJA0007 MED-C09) Document 05/22/17 09:00 LCR1524 (Rec: 05/22/17 13:46 DMT8307 MED-C11) Document 05/22/17 14:00 FOP6769 (Rec: 05/22/17 15:18 XTI7856 MED-C11) Document 05/22/17 18:00 PLC2445 (Rec: 05/22/17 20:15 CJU5632 MED-C11) Document 05/23/17 09:00 LQG0528 (Rec: 05/23/17 10:13 NIJ2893 MED-C13) Document 05/23/17 14:00 KQS0712 (Rec: 05/23/17 14:03 SCC6744 MED-C13) Document 05/23/17 18:00 ACT8340 (Rec: 05/23/17 20:19 VDN3735 MED-C42) Document 05/24/17 09:00 PYE7651 (Rec: 05/24/17 10:23 HGJ1527 MED-C11) Document 05/24/17 13:51 QPY7455 (Rec: 05/24/17 13:51 PQJ6068 MED-C11) Document 05/24/17 18:00 LSJ0356 (Rec: 05/24/17 21:28 GGY6034 MED-C02) Document 05/25/17 09:00 MKV3517 (Rec: 05/25/17 14:38 [id number] MED-C15) Document 05/25/17 14:00 XZM9714 (Rec: 05/25/17 14:43 XLO0868 MED-C15) Document 05/25/17 18:00 TZA3610 (Rec: 05/25/17 21:32 ING3072 MED-C04) Document 05/26/17 09:00 ROC3186 (Rec: 05/26/17 12:19 EIL0039 MED-C04) Document 05/26/17 14:00 JFM5162 (Rec: 05/26/17 14:26 XMN1371 MED-C09) Document 05/26/17 18:00 LRG7858 (Rec: 05/26/17 18:00 PYT4761 MED-C11) Document 05/27/17 09:00 JQF4806 (Rec: 05/27/17 14:48 YTC8977 MED-C09) Document 05/27/17 14:00 FNX5741 (Rec: 05/27/17 14:48 AOM8554 MED-C09) Document 05/27/17 18:00 GQF5544 (Rec: 05/27/17 18:53 RZQ1886 MED-C09) Document 05/28/17 09:00 RGC0059 (Rec: 05/28/17 15:03 TWP5271 MED-C09) Document 05/28/17 14:00 KWT9581 (Rec: 05/28/17 15:08 APR5636 MED-C09) Document 05/28/17 17:58 CWG8414 (Rec: 05/28/17 17:59 LWY9354 MED-C09) Document 05/29/17 09:00 AHU2897 (Rec: 05/29/17 09:31 MYY2349 MED-C09) Document 05/29/17 14:00 MEV3150 (Rec: 05/29/17 15:07 VMT9636 MED-C09) Document 05/29/17 18:00 ZVP2661 (Rec: 05/29/17 19:05 ETX9572 MED-C11) Document 05/30/17 09:00 YAB4283 (Rec: 05/30/17 11:21 SOZ2774 MED-C12) Document 05/30/17 14:00 BXH7579 (Rec: 05/30/17 14:47 MFE7063 MED-C02) Document 05/30/17 18:00 ABS4464 (Rec: 05/30/17 18:44 JBM4756 MED-C11) Document 05/31/17 09:45 QIO5174 (Rec: 05/31/17 09:49 XDU3096 MED-M11) Document 05/31/17 14:00 LPN1319 (Rec: 05/31/17 15:22 CAD7970 MED-C11) Document 06/01/17 09:00 POO8902 (Rec: 06/01/17 10:28 PUI3371 MED-C09) Document 06/01/17 14:00 THR6434 (Rec: 06/01/17 14:46 WJS7238 MED-C11) Document 06/01/17 18:00 DPS3919 (Rec: 06/01/17 21:07 RHM3068 MED-C09) Document 06/02/17 09:00 NHM0042 (Rec: 06/02/17 10:04 YSB1188 MED-C09) Document 06/02/17 12:55 XYM7275 (Rec: 06/02/17 12:56 RPQ5320 MED-C09) Document 06/02/17 18:00 RLF1597 (Rec: 06/02/17 18:27 RUF4693 MED-C09) Document 06/03/17 09:00 WUV7021 (Rec: 06/03/17 14:42 GWB2594 MED-C02) Document 06/03/17 14:00 BXE7213 (Rec: 06/03/17 14:42 SJU1595 MED-C02) Document 06/03/17 18:00 QIY1304 (Rec: 06/03/17 22:40 AHU3595 MED-C15) Intake and Output Start: 04/21/17 15: 29 Freq: DAILY@0600,1400,2200 Status: Complete Protocol: Document 04/21/17 22:00 JXJ0341 (Rec: 04/21/17 22:46 OCG0354 MED-C09) Intake and Output Start: 04/22/17 00: 18 Freq: 06,14,22 Status: Active Protocol: Created 04/22/17 00:18 CUC4825 (Rec: 04/22/17 00:18 OQD3594 ICU-M01) Document 04/22/17 00:51 RYU9208 (Rec: 04/22/17 00:51 TBX2806 ICU-C11) Document 04/22/17 05:03 KLH5951 (Rec: 04/22/17 05:03 XJE4532 ICU-C16) Document 04/22/17 06:00 LXQ5217 (Rec: 04/22/17 06:29 XXT5164 ICU-C10) Document 04/22/17 08:00 PCW7596 (Rec: 04/22/17 09:08 LXV9091 ICU-M01) Document 04/22/17 11:03 CKC7648 (Rec: 04/22/17 11:03 WLK3511 ICU-M01) Document 04/23/17 06:00 BUK8803 (Rec: 04/23/17 07:01 IYP1891 ICU-M01) Document 04/23/17 14:10 RWY7982 (Rec: 04/23/17 14:19 PUK9639 ICU-M01) Document 04/23/17 14:22 BDM8014 (Rec: 04/23/17 14:22 QTH8856 ICU-M01) Document 04/23/17 21:48 GRB9752 (Rec: 04/23/17 21:49 SEM1349 ICU-M01) Document 04/24/17 05:50 VNA0399 (Rec: 04/24/17 05:51 ZWC5155 ICU-M01) Document 04/24/17 14:30 ECK4507 (Rec: 04/24/17 15:07 UOL9051 ICU-C15) Document 04/24/17 14:30 JIR3827 (Rec: 04/24/17 15:10 MAG6144 ICU-C15) Document 04/24/17 20:23 NWA8192 (Rec: 04/24/17 20:24 KGI8334 ICU-M01) Document 04/25/17 05:34 XCG5549 (Rec: 04/25/17 05:36 EXR7655 ICU-M01) Document 04/25/17 05:36 HBV3053 (Rec: 04/25/17 05:36 LVR7976 ICU-M01) Document 04/25/17 14:00 MLX7464 (Rec: 04/25/17 14:17 AIS6392 ICU-C20) Document 04/25/17 21:51 MKX9587 (Rec: 04/25/17 21:54 REZ4185 ICU-M01) Document 04/26/17 05:52 FOI8335 (Rec: 04/26/17 05:56 LXJ7377 ICU-M01) Document 04/26/17 14:00 NQH7230 (Rec: 04/26/17 14:59 TCK0285 ICU-C11) Document 04/26/17 16:00 YOV8148 (Rec: 04/26/17 16:34 HXG1582 ICU-C10) Document 04/26/17 22:00 CKG4359 (Rec: 04/26/17 22:57 YAH8772 ICU-C16) Document 04/27/17 05:37 ZNG6487 (Rec: 04/27/17 05:37 NXH0201 ICU-C16) Document 04/27/17 13:43 FOQ9636 (Rec: 04/27/17 13:43 INH5291 ICU-C16) Document 04/27/17 14:17 BVB9323 (Rec: 04/27/17 14:18 MCX5582 ICU-M01) Document 04/27/17 22:00 TGA4199 (Rec: 04/27/17 22:15 CRY6080 ICU-M01) Document 04/28/17 06:43 JSG7842 (Rec: 04/28/17 06:46 JQC9760 ICU-M01) Document 04/28/17 11:00 AYU5600 (Rec: 04/28/17 14:50 AAG0705 ICU-C16) Document 04/28/17 14:00 JMH1083 (Rec: 04/28/17 15:05 ANI8768 ICU-C11) Document 04/28/17 22:00 UOH3399 (Rec: 04/28/17 22:49 NZD8478 ICU-C16) Document 04/29/17 06:00 BJG8934 (Rec: 04/29/17 06:40 MLV1002 ICU-C16) Document 04/29/17 10:30 SDY2077 (Rec: 04/29/17 12:10 FHB8300 ICU-C10) Document 04/29/17 14:00 PYW0723 (Rec: 04/29/17 20:45 LXC8049 ICU-C10) Document 04/29/17 22:00 IMB5027 (Rec: 04/29/17 23:08 SRD8005 ICU-C16) Document 04/30/17 06:00 XXR3091 (Rec: 04/30/17 07:03 HWR1578 ICU-C16) Document 04/30/17 14:00 MDL5138 (Rec: 04/30/17 14:16 XFP2812 ICU-C10) Document 04/30/17 21:46 OYM4242 (Rec: 04/30/17 21:46 SWP8033 ICU-C07) Document 04/30/17 22:48 CWB4338 (Rec: 04/30/17 22:48 USU1991 ICU-M01) Document 05/01/17 05:58 RTP0153 (Rec: 05/01/17 05:58 PTR2769 ICU-C07) Document 05/01/17 06:01 DQA6381 (Rec: 05/01/17 06:01 IFT2067 ICU-C10) Document 05/01/17 13:51 UAZ7846 (Rec: 05/01/17 14:05 HMM4796 ICU-M01) Document 05/01/17 18:05 DPL2619 (Rec: 05/01/17 18:05 HDZ6344 ICU-C16) Document 05/01/17 21:44 VIF7142 (Rec: 05/01/17 21:44 GWC6444 ICU-C18) Document 05/02/17 06:00 XEF0642 (Rec: 05/02/17 06:05 QWG0050 ICU-M01) Document 05/02/17 13:00 NTW1833 (Rec: 05/02/17 13:02 DWL3510 ICU-M01) Document 05/02/17 14:00 TTR7865 (Rec: 05/02/17 14:19 VYK8483 ICU-C16) Document 05/02/17 22:00 WEL0734 (Rec: 05/02/17 22:22 ULS9290 ICU-C20) Document 05/02/17 22:31 VYR8242 (Rec: 05/02/17 22:32 AHQ4792 ICU-C10) Document 05/03/17 06:26 QCC2419 (Rec: 05/03/17 06:27 KDL7453 ICU-M01) Document 05/03/17 06:27 WWI8152 (Rec: 05/03/17 06:29 BTB2545 ICU-M01) Document 05/03/17 15:20 QDW5225 (Rec: 05/03/17 15:21 ANH3084 ICU-C16) Document 05/03/17 17:35 MHW5890 (Rec: 05/03/17 17:35 KKR7752 ICU-C16) Document 05/03/17 20:30 LEJ2555 (Rec: 05/03/17 22:30 OAV0559 ICU-C15) Document 05/03/17 21:19 LMI0353 (Rec: 05/03/17 21:20 EDH3589 ICU-M01) Document 05/03/17 22:00 NBN9810 (Rec: 05/03/17 22:17 EZK5319 ICU-C15) Document 05/03/17 22:30 BDC9468 (Rec: 05/03/17 22:30 FFH8671 ICU-C15) Document 05/04/17 06:00 AJH8741 (Rec: 05/04/17 06:20 ZVE3272 ICU-C15) Document 05/04/17 07:11 KSU4972 (Rec: 05/04/17 07:11 ZAM0756 ICU-C15) Document 05/04/17 14:00 CZL8826 (Rec: 05/04/17 14:13 YGO1510 ICU-C16) Document 05/04/17 14:00 LLT7668 (Rec: 05/04/17 14:40 ZXJ9848 ICU-C10) Document 05/04/17 18:10 ZUA3318 (Rec: 05/04/17 18:11 RVO3481 ICU-M01) Document 05/04/17 22:04 DLV8320 (Rec: 05/04/17 22:08 LMN7173 ICU-M01) Document 05/05/17 00:24 ISV3586 (Rec: 05/05/17 00:24 DRS6797 ICU-C16) Document 05/05/17 05:29 PLT9061 (Rec: 05/05/17 05:30 NFZ2583 ICU-M01) Document 05/05/17 05:36 VNI0615 (Rec: 05/05/17 05:37 ZJO5784 ICU-C10) Document 05/05/17 14:17 UKI0046 (Rec: 05/05/17 14:17 QVO8631 ICU-M01) Document 05/05/17 22:51 IHP1755 (Rec: 05/05/17 22:54 IAZ0135 ICU-M01) Document 05/06/17 05:58 NZU0221 (Rec: 05/06/17 06:06 DLH9254 ICU-M01) Document 05/06/17 09:00 CTA9502 (Rec: 05/06/17 09:45 ZXA8519 ICU-C07) Document 05/06/17 09:30 XWG5112 (Rec: 05/06/17 12:27 QFS9815 ICU-C10) Document 05/06/17 14:00 KRI3354 (Rec: 05/06/17 14:07 GIH0076 ICU-C10) Document 05/06/17 14:30 OWM0969 (Rec: 05/06/17 14:30 ZLK8917 ICU-C07) Intake and Output Start: 05/06/17 16: 24 Freq: DAILY@0600,1400,2200 Status: Active Protocol: Created 05/06/17 16:24 KCF9996 (Rec: 05/06/17 16:24 CBM7157 SSU-M16) Document 05/06/17 22:43 MXD1564 (Rec: 05/06/17 22:48 QXX9228 SSU-M17) Document 05/07/17 05:08 WUD5284 (Rec: 05/07/17 05:09 LPO5503 SSU-M13) Document 05/07/17 08:05 PSS2932 (Rec: 05/07/17 08:07 YQW6755 SSU-M13) Document 05/07/17 11:13 TCU1100 (Rec: 05/07/17 11:14 VGK9644 SSU-M13) Document 05/07/17 14:00 KLG1746 (Rec: 05/07/17 14:16 YEJ9043 SSU-M13) Document 05/07/17 14:00 TZT0102 (Rec: 05/07/17 14:33 QCB9955 SSU-C03) Document 05/07/17 21:14 DAL1481 (Rec: 05/07/17 21:15 VIJ7770 SSU-C08) Document 05/08/17 05:35 ZKS0616 (Rec: 05/08/17 05:35 UXR6197 SSU-M18) Document 05/08/17 14:00 AKU1122 (Rec: 05/08/17 14:05 ERJ5550 SSU-C01) Document 05/08/17 21:44 PQH3390 (Rec: 05/08/17 21:44 RNT0347 SSU-M18) Document 05/08/17 22:28 VTG8360 (Rec: 05/08/17 22:28 KEA9972 SSU-M18) Document 05/09/17 04:56 CYB6318 (Rec: 05/09/17 04:56 XJO1998 SSU-C05) Document 05/09/17 06:18 BDG6272 (Rec: 05/09/17 06:18 NJU5876 SSU-M07) Document 05/09/17 14:25 IQM6951 (Rec: 05/09/17 14:25 TGG8315 SSU-C05) Document 05/09/17 16:09 TDB5164 (Rec: 05/09/17 16:09 OHD6470 SSU-M18) Document 05/09/17 22:00 CPW8646 (Rec: 05/09/17 22:06 NML0154 SSU-M18) Document 05/10/17 05:32 FGH8198 (Rec: 05/10/17 05:32 IYX4183 SSU-M16) Document 05/10/17 14:28 LTR1261 (Rec: 05/10/17 14:28 BIC3480 SSU-C19) Document 05/10/17 22:27 ZXH5522 (Rec: 05/10/17 22:28 ZPQ6865 SSU-M18) Document 05/11/17 05:36 MPQ0882 (Rec: 05/11/17 05:36 QPQ7929 SSU-M14) Document 05/11/17 14:00 HHO7093 (Rec: 05/11/17 14:28 TMI1271 MED-C11) Document 05/11/17 22:00 QBF8382 (Rec: 05/11/17 22:43 SLS5254 MED-C09) Document 05/12/17 00:00 MXA1438 (Rec: 05/12/17 00:00 PSE6747 TELE-M13) Document 05/12/17 06:00 YBU1293 (Rec: 05/12/17 06:50 PCK8151 MED-C11) Document 05/12/17 13:55 NIP1679 (Rec: 05/12/17 13:56 CLW0336 MED-C12) Document 05/12/17 22:00 HPP6897 (Rec: 05/12/17 22:16 NXZ7584 MED-C11) Document 05/13/17 05:47 XRK3225 (Rec: 05/13/17 05:47 DEM4145 MED-C09) Document 05/13/17 14:00 HPV3271 (Rec: 05/13/17 14:31 KNY6663 MED-C09) Document 05/13/17 22:00 EZL1995 (Rec: 05/13/17 22:17 JVZ2068 MED-C11) Document 05/14/17 03:21 IAZ7242 (Rec: 05/14/17 03:21 WBW8873 MED-C09) Document 05/14/17 14:00 FWT7949 (Rec: 05/14/17 14:25 FRB9197 MED-C09) Document 05/14/17 20:00 DGF2457 (Rec: 05/14/17 20:00 SLX6526 MED-C11) Document 05/15/17 05:18 AWH9514 (Rec: 05/15/17 05:19 UIO3077 MED-C09) Document 05/15/17 14:00 SMN6711 (Rec: 05/15/17 14:37 HXT5516 MED-C09) Document 05/15/17 22:00 MCO0172 (Rec: 05/15/17 22:24 NIO1725 MED-C09) Document 05/16/17 14:00 JNH7873 (Rec: 05/16/17 14:49 HAD9112 MED-C09) Document 05/16/17 20:54 TDJ4751 (Rec: 05/16/17 20:55 BRS6861 MED-C11) Document 05/17/17 06:00 JPL9913 (Rec: 05/17/17 06:19 ICN8044 MED-C11) Document 05/17/17 14:00 BEL7354 (Rec: 05/17/17 14:19 SZL7596 MED-C09) Document 05/17/17 20:06 NNF6926 (Rec: 05/17/17 20:06 EIK3887 MED-C11) Document 05/18/17 05:07 TUE9836 (Rec: 05/18/17 05:08 HBE8390 MED-C09) Document 05/18/17 14:00 KAT3458 (Rec: 05/18/17 14:26 UOR4577 MED-C09) Document 05/18/17 21:25 KMG8743 (Rec: 05/18/17 21:25 DJV5185 MED-C09) Document 05/19/17 04:04 IPQ0444 (Rec: 05/19/17 04:05 MTZ4669 MED-C09) Document 05/19/17 14:00 NRO8577 (Rec: 05/19/17 15:19 IIA0807 MED-C11) Document 05/19/17 21:03 RTH9033 (Rec: 05/19/17 21:03 WBE5932 MED-C09) Document 05/20/17 03:45 TLS5656 (Rec: 05/20/17 03:47 OGS1205 MED-C09) Document 05/20/17 14:00 BHB7704 (Rec: 05/20/17 14:28 DXZ6767 MED-C09) Document 05/20/17 20:04 DSH7953 (Rec: 05/20/17 20:05 EYH4047 MED-C11) Document 05/21/17 05:22 ZYI0645 (Rec: 05/21/17 05:22 LOW2686 MED-C11) Document 05/21/17 05:22 UZS6155 (Rec: 05/21/17 05:22 RZJ0982 MED-C11) Document 05/21/17 14:00 YSI1357 (Rec: 05/21/17 14:31 HRX2597 MED-C09) Document 05/21/17 22:00 PDD1728 (Rec: 05/21/17 22:44 JQZ5198 MED-C11) Document 05/22/17 04:22 PRH4533 (Rec: 05/22/17 04:24 IPK9294 MED-C09) Document 05/22/17 14:00 CRB5405 (Rec: 05/22/17 15:18 ONS7593 MED-C11) Document 05/22/17 18:40 YQP7612 (Rec: 05/22/17 18:41 GWK0134 MED-C02) Document 05/22/17 20:15 LPM6007 (Rec: 05/22/17 20:16 BPC5151 MED-C11) Document 05/23/17 03:51 TYZ7931 (Rec: 05/23/17 03:52 PZK8867 MED-C09) Document 05/23/17 14:00 LFD7795 (Rec: 05/23/17 14:03 WJS2428 MED-C13) Document 05/23/17 22:00 BTI9294 (Rec: 05/23/17 22:08 QII9228 MED-C42) Document 05/24/17 05:49 CHJ3712 (Rec: 05/24/17 05:49 KGD1368 MED-C09) Document 05/24/17 13:52 NCX8988 (Rec: 05/24/17 13:52 YYE6882 MED-C11) Document 05/24/17 22:00 FYF4459 (Rec: 05/24/17 22:40 RTV6121 MED-C02) Document 05/25/17 06:00 CLA3148 (Rec: 05/25/17 06:26 OTF7694 MED-C09) Document 05/25/17 14:00 VDQ2274 (Rec: 05/25/17 15:09 DCM3427 MED-C11) Document 05/25/17 22:00 VUB4255 (Rec: 05/25/17 23:09 MEQ4518 MED-C04) Document 05/26/17 06:00 IDO8484 (Rec: 05/26/17 06:20 UGX7019 MED-C09) Document 05/26/17 14:00 OTY8737 (Rec: 05/26/17 14:26 EBG9765 MED-C09) Document 05/26/17 22:00 ENR7565 (Rec: 05/26/17 23:02 IEI0050 MED-M16) Document 05/27/17 05:28 VLP8756 (Rec: 05/27/17 05:28 HUT8510 MED-M04) Document 05/27/17 14:00 XCG3849 (Rec: 05/27/17 14:49 LIY9035 MED-C09) Document 05/27/17 22:00 HGA5409 (Rec: 05/27/17 22:02 XRB6231 MED-C15) Document 05/28/17 06:00 YZC5034 (Rec: 05/28/17 06:33 PML1284 MED-C09) Document 05/28/17 14:00 EBF7396 (Rec: 05/28/17 15:08 IET5304 MED-C09) Document 05/28/17 22:00 BPC7228 (Rec: 05/28/17 22:03 JLZ3272 MED-C09) Document 05/29/17 06:00 ARD0374 (Rec: 05/29/17 06:07 MLC5029 MED-C11) Document 05/29/17 14:00 WUW3160 (Rec: 05/29/17 15:07 QEA4385 MED-C09) Document 05/29/17 22:00 JCR6362 (Rec: 05/29/17 22:19 SXE1130 MED-C11) Document 05/30/17 06:00 FND7964 (Rec: 05/30/17 07:10 LUN0220 MED-C09) Document 05/30/17 14:00 HZZ9716 (Rec: 05/30/17 14:47 WWN3584 MED-C02) Document 05/30/17 20:04 UDA0199 (Rec: 05/30/17 20:04 KPK8340 MED-C11) Document 05/31/17 14:00 PCB6556 (Rec: 05/31/17 15:19 OUI1951 MED-C11) Document 05/31/17 21:43 VVG9083 (Rec: 05/31/17 21:43 TZS3236 MED-C09) Document 06/01/17 00:23 GGP7404 (Rec: 06/01/17 00:24 HFD3579 MED-C09) Document 06/01/17 04:33 YRI8076 (Rec: 06/01/17 04:34 KCZ7166 MED-C09) Document 06/01/17 14:00 DPI2285 (Rec: 06/01/17 14:46 NAK9068 MED-C11) Document 06/01/17 21:08 DZW1154 (Rec: 06/01/17 21:08 NGC7602 MED-C09) Document 06/02/17 06:00 UDE1210 (Rec: 06/02/17 07:26 SEH9718 MED-C09) Document 06/02/17 12:56 DCT4439 (Rec: 06/02/17 12:57 HET7132 MED-C09) Document 06/02/17 22:00 YVY7846 (Rec: 06/02/17 22:40 WBX2784 MED-C09) Document 06/03/17 04:48 BFG6172 (Rec: 06/03/17 04:48 XUA4973 MED-C09) Document 06/03/17 06:00 RRZ2518 (Rec: 06/03/17 06:02 SXB7969 MED-C09) Document 06/03/17 14:00 CVJ0733 (Rec: 06/03/17 14:42 NNR1256 MED-C02) Document 06/03/17 22:00 NZT3631 (Rec: 06/03/17 22:42 XGO0541 MED-C15) Document 06/04/17 06:00 NWB3967 (Rec: 06/04/17 06:48 FRQ3514 MED-C09) General Impression: Confused, mumbling man lying in bed in NAD Head: Symmetrical Eyes: No Scleral Icterus, PERRLA Ears/Nose/Mouth/Throat: NL Teeth, Lips, Gums Neck: NL Appearance and Movements; NL JVP Cardiovascular: NL Sounds; No Murmurs; No JVD, RRR Respiratory: Symmetrical Chest Expansion and Respiratory Effort Abdominal: NL Sounds; No Tenderness; No Distention Extremities: No Edema, - - pain on manipulation of extremities Neurological: NL Sensation, - - Confused, lethargic, Ox0, can not follow commands - Assessment Assessment: This man has a very grim prognosis with multiple disseminated staph abscesses, failing nutritional status and encephalopathy. His called me today, and I first discussed with her the code status, and the futility of performing CPR on such an ill person, and she was very much in agreement that she would not want to have CPR attempted on her nor have him intubated, and he should be allowed to a natural . We then moved on to a discussion of palliative measures, and she was actually in favor of changing her 's status to hospice, and is interested in a bed at the residence, if one opens up, or in taking him home on hospice services. I have arranged for Una to pull a MOLST form with DNR/DNI ontothe chart so manuel Brasher can sign it when she comes in this evening to see her , and I have arranged to meet her on Wednesday at the patient's room at 4 pm to discuss palliative/ comfort care further and arrange for discharge onto hospice services either at home or the [facility] residence. The patient meets criteria for hospice with a primary diagnosis of staphylococcal sepsis and a secondary diagnosis of malnutrition, comorbid encephalopathy. - Plan Consult Plan (MU): Hospice Plan: NB: Patient evaluation and chart review done 06/03/17, discussion with proxy on advanced directives and goals of care done on 06/04/17. - Time On Unit Date of Evaluation: 06/03/17 Hospice Consult Time in: 16:30 Hospice Consult Time Out: 17:30 Hospice Consult Time Total: 60 > 50% of Time Spend In Counseling or Coordinating Care: Yes
[2017-06-04] MEDS: Thiamine IV* 250 MG in NS 0.9% 100 ML* 100 ML IV SCH (12:21)
[2017-06-04] MEDS: Acetaminophen TAB* 325 MG PO PRN (15:44)
--- NOTE | 2017-06-04 16:26 | PN ---
Subjective Date of Service: 06/04/17 Interval History: Pt w/o complaint. talked with Dr. Nava and interested in changing to DNR/DNI and enrollment in hospice. TPN stopped. Family History: Unchanged from Admission Social History: Unchanged from Admission Past Medical History: Unchanged from Admission Objective Active Medications: Acetaminophen (Tylenol Tab*) 650 mg PO Q4H PRN PRN Reason: FEVER Last Admin: 06/04/17 15:44 Dose: 650 mg Allopurinol (Zyloprim Tab*) 100 mg PO QAM [facility] Last Admin: 06/04/17 10:22 Dose: 100 mg Amlodipine Besylate (Norvasc Tab*) 5 mg PO DAILY [facility] Last Admin: 06/04/17 10:21 Dose: 5 mg Atorvastatin Calcium (Lipitor*) 20 mg PO 1700 [facility] Last Admin: 06/03/17 16:47 Dose: 20 mg Bisacodyl (Dulcolax Supp*) 10 mg KS DAILY PRN PRN Reason: CONSTIPATION Last Admin: 05/19/17 11:07 Dose: 10 mg Docusate Sodium (Colace Cap*) 100 mg PO DAILY PRN PRN Reason: CONSTIPATION Last Admin: 05/18/17 16:48 Dose: 100 mg Haloperidol Lactate (Haldol Inj Iv/Im*) 5 mg IV SLOW PU Q6H PRN PRN Reason: AGITATION Last Admin: 05/25/17 22:20 Dose: 5 mg Heparin Sodium (Porcine) (Heparin Flush Picc/Ml/Cvc(*)) 1 - 3 ml FLUSH 0600, 1800 [facility] PRN Reason: Protocol Last Admin: 06/04/17 06:10 Dose: 1 ml Heparin Sodium (Porcine) (Heparin Vial(*)) 5,000 units SUBCUT Q8HR [facility] Last Admin: 06/04/17 14:23 Dose: 5,000 units Hydralazine HCl (Apresoline Iv*) 10 mg IV Q4H PRN PRN Reason: Systolic >170 Last Admin: 06/01/17 20:55 Dose: 10 mg Cefazolin Sodium 2 gm/ Sterile (Water) 20 mls @ 60 mls/hr IVPB 0100,0900,1700 [facility] Last Admin: 06/04/17 10:22 Dose: 60 mls/hr Magnesium Hydroxide (Milk Of Magnesia Liq*) 30 ml PO Q4H PRN PRN Reason: CONSTIPATION Last Admin: 05/19/17 11:05 Dose: 30 ml Nebivolol (Bystolic Tab (Nf)) 10 mg PO QAM [facility] Last Admin: 06/04/17 10:21 Dose: 10 mg Ondansetron HCl (Zofran Inj*) 4 mg IV Q6H PRN PRN Reason: NAUSEA/VOMITING Last Admin: 05/28/17 04:49 Dose: 4 mg Polyethylene Glycol/Electrolytes (Miralax*) 17 gm PO DAILY [facility] Last Admin: 06/04/17 10:27 Dose: Not Given Polyvinyl Alcohol (Polyvinyl Alcohol 1.4% Opth*) 1 drop BOTH EYES Q2H PRN PRN Reason: DRY EYE Last Admin: 05/20/17 16:53 Dose: 1 drop Sodium Biphosphate/Sodium Phosphate (Fleet Enema*) 1 bottle KS DAILY PRN PRN Reason: CONSTIPATION Thiamine HCl (Vitamin B-1 Tab*) 100 mg PO DAILY [facility] Last Admin: 06/04/17 10:22 Dose: 100 mg Vital Signs - 8 hr 06/04/17 06/04/17 11:56 15:18 Temperature 98.4 F 98.9 F Pulse Rate 73 75 Respiratory 16 18 Rate Blood Pressure 128/68 146/81 (mmHg) O2 Sat by Pulse 100 98 Oximetry Oxygen Devices in Use Now: None Appearance: chronically ill appearing. Eyes: No Scleral Icterus, PERRLA Ears/Nose/Mouth/Throat: NL Teeth, Lips, Gums Respiratory: Symmetrical Chest Expansion and Respiratory Effort, Clear to Auscultation Cardiovascular: NL Sounds; No Murmurs; No JVD, RRR Abdominal: NL Sounds; No Tenderness; No Distention, No Hepatosplenomegaly Extremities: No Edema, No Clubbing, Cyanosis, - - left knee less warm. Skin: No Rash or Ulcers Neurological: - - oriented to name and 2018. [address]. Thinks he is in [employer] shop. Nutrition: Taking PO's Result Diagrams: 06/03/17 12:11 06/04/17 06:12 Additional Lab and Data: Laboratory Results - last 24 hr 06/03/17 06/03/17 06/04/17 18:19 23:49 06:12 Sodium 131 L Potassium 4.5 Chloride 107 Carbon Dioxide 19 L Anion Gap 5 BUN 15 Creatinine 0.51 L Est GFR ( Amer) 204.3 Est GFR (Non-Af Amer) 158.9 BUN/Creatinine Ratio 29.4 H Glucose 88 POC Glucose (mg/dL) 131 H 151 H Calcium 8.3 L Phosphorus 6.0 H Magnesium 1.7 L Total Bilirubin 0.30 AST 43 H ALT 15 Alkaline Phosphatase 158 H Total Protein 5.9 L Albumin 2.1 L Globulin 3.8 Albumin/Globulin Ratio 0.6 L Prealbumin 4 L Triglycerides 103 Cholesterol 84 06/04/17 06/04/17 06/04/17 06:15 08:02 12:30 Sodium Potassium Chloride Carbon Dioxide Anion Gap BUN Creatinine Est GFR ( Amer) Est GFR (Non-Af Amer) BUN/Creatinine Ratio Glucose POC Glucose (mg/dL) 110 H 127 H 130 H Calcium Phosphorus Magnesium Total Bilirubin AST ALT Alkaline Phosphatase Total Protein Albumin Globulin Albumin/Globulin Ratio Prealbumin Triglycerides Cholesterol Microbiology and Other Data: Microbiology 05/29/17 16:45 Blood Venous Aerobic Blood Culture - Final No Growth Day 5 05/29/17 16:45 Blood Venous Anaerobic Blood Culture - Final No Growth Day 5 05/29/17 16:32 Blood Venous Aerobic Blood Culture - Final No Growth Day 5 05/29/17 16:32 Blood Venous Anaerobic Blood Culture - Final No Growth Day 5 05/21/17 17:58 Wound - Knee Left Anaerobic Culture - Final No Growth Day 4 05/21/17 17:58 Knee Left Gram Stain - Final 05/21/17 17:58 Knee Left Wound Culture - Final No Growth Day 4 05/21/17 16:36 Wound - Shoulder Right Anaerobic Culture - Final No Growth Day 4 05/21/17 16:36 Shoulder Right Gram Stain - Final 05/21/17 16:36 Shoulder Right Wound Culture - Final No Growth Day 4 05/21/17 16:36 Wound - Shoulder Right Anaerobic Culture - Final No Growth Day 4 05/21/17 16:36 Shoulder Right Gram Stain - Final 05/21/17 16:36 Shoulder Right Wound Culture - Final No Growth Day 4 04/23/17 10:30 Misc Source (See Comment) - Other Fungal Culture - Final 05/20/17 05:43 Stool Stool Occult Blood (KEEGAN) - Final 05/14/17 14:30 Misc Fluid (See Comment) - Abscess Gram Stain - Final 05/14/17 14:30 Misc Fluid (See Comment) - Abscess Body Fluid Culture - Final 05/14/17 14:30 Misc Fluid (See Comment) - Abscess Skin and Soft Tissue MRSA/ MSSA (PCR - Final Mrsa Negative S.aureus Positive 05/12/17 01:30 Blood Venous Aerobic Blood Culture - Final No Growth Day 5 05/12/17 01:30 Blood Venous Anaerobic Blood Culture - Final No Growth Day 5 05/12/17 01:30 Blood Venous Aerobic Blood Culture - Final No Growth Day 5 05/12/17 01:30 Blood Venous Anaerobic Blood Culture - Final No Growth Day 5 05/12/17 00:48 Blood Venous Aerobic Blood Culture - Final No Growth Day 5 05/12/17 00:48 Blood Venous Anaerobic Blood Culture - Final No Growth Day 5 05/09/17 17:00 Blood Venous Aerobic Blood Culture - Final No Growth Day 5 05/09/17 17:00 Blood Venous Anaerobic Blood Culture - Final No Growth Day 5 05/09/17 17:00 Blood Venous Aerobic Blood Culture - Final No Growth Day 5 05/09/17 17:00 Blood Venous Anaerobic Blood Culture - Final No Growth Day 5 05/08/17 19:15 Joint Fluid(Synovial) Gram Stain - Final 05/08/17 19:15 Joint Fluid(Synovial) Body Fluid Culture - Final No Growth Day 4 05/08/17 19:15 Joint Fluid(Synovial) Skin and Soft Tissue MRSA/MSSA (PCR - Final Mrsa Negative S.aureus Negative 05/08/17 19:15 Body Fluid Gram Stain - Final 05/08/17 19:15 Body Fluid Body Fluid Culture - Final No Growth Day 4 05/08/17 19:15 Body Fluid Skin and Soft Tissue MRSA/MSSA (PCR - Final Mrsa Negative S.aureus Positive 04/27/17 08:00 Blood Venous Aerobic Blood Culture - Final No Growth Day 5 04/27/17 08:00 Blood Venous Anaerobic Blood Culture - Final No Growth Day 5 04/27/17 06:10 Blood Venous Aerobic Blood Culture - Final Staphylococcus Epidermidis 04/27/17 06:10 Blood Venous Anaerobic Blood Culture - Final No Growth Day 5 04/27/17 06:10 Blood Venous Blood MRSA/MSSA (PCR) - Final Mrsa Negative S.aureus Negative 04/26/17 21:00 Wound - Wound Anaerobic Culture - Final 04/26/17 21:00 Wound - Wound Skin and Soft Tissue MRSA/MSSA (PCR - Final Mrsa Negative S.aureus Positive 04/26/17 21:00 Wound - Wound Gram Stain - Final 04/26/17 21:00 Wound - Wound Wound Culture - Final Staphylococcus Aureus 04/23/17 15:53 Wound - Knee Left Anaerobic Culture - Final 04/23/17 15:53 Wound - Knee Left Skin and Soft Tissue MRSA/MSSA (PCR - Final Mrsa Negative S.aureus Positive 04/23/17 15:53 Wound - Knee Left Gram Stain - Final 04/23/17 15:53 Wound - Knee Left Wound Culture - Final Staphylococcus Aureus 04/23/17 10:30 Joint Fluid(Synovial) - Knee Left Gram Stain - Final 04/23/17 10:30 Joint Fluid(Synovial) - Knee Left Body Fluid Culture - Final Staphylococcus Aureus 04/23/17 10:30 Joint Fluid(Synovial) - Knee Left Skin and Soft Tissue MRSA/ MSSA (PCR - Final Mrsa Negative S.aureus Positive 04/22/17 16:56 Wound - Abscess Anaerobic Culture - Final 04/22/17 16:56 Wound - Abscess Skin and Soft Tissue MRSA/MSSA (PCR - Final Mrsa Negative S.aureus Positive 04/22/17 16:56 Wound - Abscess Gram Stain - Final 04/22/17 16:56 Wound - Abscess Wound Culture - Final Staphylococcus Aureus 04/22/17 15:00 Wound - Other Anaerobic Culture - Final 04/22/17 15:00 Misc Source (See Comment) - Other Skin and Soft Tissue MRSA/ MSSA (PCR - Final Mrsa Negative S.aureus Positive 04/22/17 15:00 Misc Source (See Comment) - Other Gram Stain - Final 04/22/17 15:00 Misc Source (See Comment) - Other Wound Culture - Final Staphylococcus Aureus 04/21/17 05:40 Blood Venous Aerobic Blood Culture - Final Staphylococcus Aureus 04/21/17 05:40 Blood Venous Anaerobic Blood Culture - Final Staphylococcus Aureus 04/21/17 05:40 Blood Venous Blood MRSA/MSSA (PCR) - Final Mrsa Negative S.aureus Positive 04/21/17 04:40 Blood Venous Aerobic Blood Culture - Final Staphylococcus Aureus 04/21/17 04:40 Blood Venous Anaerobic Blood Culture - Final Staphylococcus Aureus 04/21/17 04:40 Blood Venous Blood MRSA/MSSA (PCR) - Final Mrsa Negative S.aureus Positive 04/22/17 06:20 Nasal Nasal Screen MRSA (PCR)(KEEGAN) - Final Mrsa Not Detected Assess/Plan/Problems-Billing Assessment: 76 yo M with h/o HTN, ETOH abuse, multiple joint replacements, GI bleed (and partial colon resection due to bleed) who presented to the ER with c/o fever and severe back pain and was ultimately found to have a very large epidural abscess/septic joints, R septic shoulder, L septic knee, right psoas abscess s/ p drainage in the setting of MSSA bacteremia with stay complicated by delirium. Plan for hospice evaluation Wednesday. - Patient Problems (1) Encephalopathy Current Visit: Yes Status: Acute Code(s): G93.40 - ENCEPHALOPATHY, UNSPECIFIED SNOMED Code(s): 40966688 Comment: - multifactorial associated with infection. 4-5 beers daily prior to admission, now on high dose thiamine for possible Wernicke's. Has not made much progress. Palliative care consulted on 06/01. now interested in hospice eval on Wednesday along with DNR/DNI (2) Epidural abscess Current Visit: Yes Status: Acute Code(s): G06.2 - EXTRADURAL AND SUBDURAL ABSCESS, UNSPECIFIED SNOMED Code(s): 60117258 Comment: The patient presented with a very large epidural abscess with associated septic arthristis He underwent multilevel skip laminectomies from C6 -7- L5 on 04/22/17. Continue rifampin and ancef per Dr. Franklin. Discussed about any further imaging, not at this time. trending CRP (rising again now). intermittent fevers and continued encephalopathy. (3) MSSA bacteremia Current Visit: Yes Status: Acute Code(s): R78.81 - BACTEREMIA SNOMED Code( s): 773318794 Comment: (4) Septic arthritis of knee, left Current Visit: Yes Status: Acute Code(s): M00.9 - PYOGENIC ARTHRITIS, UNSPECIFIED SNOMED Code(s): 836724621 Comment: The patient is s/p washout/debridement and liner exchange of the left knee total arthroplasty 04/23/17, Left knee aspiration on 05/08/17 and repeat washout 05/21 Cultures negative from last washouts Continue ancef and rifampin (5) Septic arthritis of shoulder, right Current Visit: Yes Status: Acute Code(s): M00.9 - PYOGENIC ARTHRITIS, UNSPECIFIED SNOMED Code(s): 03779357 Comment: The patient is s/p washout/debridement of R shoulder 04/26/17 and washout 05/21 Cultures negative from last washouts Continue ancef and rifampin. (6) DVT prophylaxis Current Visit: Yes Status: Acute Code(s): [id number] - SNOMED Code(s): 434545144 Comment: - SQ heparin. (7) Gout Current Visit: Yes Status: Acute Code(s): M10.9 - GOUT, UNSPECIFIED SNOMED Code(s): 34117905 Comment: allopurinol (8) Anemia Current Visit: Yes Status: Acute Code(s): D64.9 - ANEMIA, UNSPECIFIED SNOMED Code(s): 495861840 Comment: anemia of chronic disease. has required transfusions. (9) Severe protein-calorie malnutrition Current Visit: Yes Status: Acute Code(s): E43 - UNSPECIFIED SEVERE PROTEIN- CALORIE MALNUTRITION SNOMED Code(s): 111624190 Comment: - Prealbumin <3 -> 4 - stop TPN. likely to hospice Wednesday. Status and Disposition: Inpatient for extensive MSSA infection management. Potentially to hospice
[2017-06-04] MEDS ORDERED: TPN* 24 HR with Dextrose 50% Water* 500 ML, Amino Acid Infusion 10%* 850 ML, Sterile Wa... CENTR SCH ×12 (17:00)
[2017-06-04] MEDS: Atorvastatin* 20 MG TAB PO SCH (18:20)
[2017-06-05] MEDS: STERILE WATER FOR INJ IVPB SCH ×3 (01:03→17:48)
[2017-06-05] MEDS: CEFAZOLIN IVPB SCH ×3 (01:03→17:48)
[2017-06-05] MEDS: Heparin VIAL(*) 5000 UNITS/ML VIAL (FIVE THOUSAND) SUBCUT SCH ×3 (05:24→21:37)
[2017-06-05] MEDS ORDERED: Magnesium Sulfate 2 GM IV* 2 GM/50 ML BAG IVPB ONE (08:09)
[2017-06-05] MEDS: Polyethylene Glycol 3350* 17 GM PACKET PO SCH (09:18)
[2017-06-05] MEDS: CMCS: Nebivolol TAB (NF) 2.5 MG TAB PO SCH (09:18)
[2017-06-05] MEDS: Thiamine TAB* 100 MG TAB PO SCH (09:19)
[2017-06-05] MEDS: Allopurinol TAB* 100 MG PO SCH (09:19)
[2017-06-05] MEDS: amLODIPine TAB* 5 MG PO SCH (09:21)
--- NOTE | 2017-06-05 16:20 | PN ---
Subjective Interval History: Afebrile, Oriented to name and [place] med. not year. Denies complaints. Family History: Unchanged from Admission Social History: Unchanged from Admission Past Medical History: Unchanged from Admission Objective Active Medications: Acetaminophen (Tylenol Tab*) 650 mg PO Q4H PRN PRN Reason: FEVER Last Admin: 06/04/17 15:44 Dose: 650 mg Allopurinol (Zyloprim Tab*) 100 mg PO QAM [facility] Last Admin: 06/05/17 09:19 Dose: 100 mg Amlodipine Besylate (Norvasc Tab*) 5 mg PO DAILY [facility] Last Admin: 06/05/17 09:21 Dose: Not Given Atorvastatin Calcium (Lipitor*) 20 mg PO 1700 [facility] Last Admin: 06/04/17 18:20 Dose: 20 mg Bisacodyl (Dulcolax Supp*) 10 mg KS DAILY PRN PRN Reason: CONSTIPATION Last Admin: 05/19/17 11:07 Dose: 10 mg Docusate Sodium (Colace Cap*) 100 mg PO DAILY PRN PRN Reason: CONSTIPATION Last Admin: 05/18/17 16:48 Dose: 100 mg Haloperidol Lactate (Haldol Inj Iv/Im*) 5 mg IV SLOW PU Q6H PRN PRN Reason: AGITATION Last Admin: 05/25/17 22:20 Dose: 5 mg Heparin Sodium (Porcine) (Heparin Flush Picc/Ml/Cvc(*)) 1 - 3 ml FLUSH 0600, 1800 [facility] PRN Reason: Protocol Last Admin: 06/05/17 10:22 Dose: 1 ml Heparin Sodium (Porcine) (Heparin Vial(*)) 5,000 units SUBCUT Q8HR [facility] Last Admin: 06/05/17 12:53 Dose: 5,000 units Hydralazine HCl (Apresoline Iv*) 10 mg IV Q4H PRN PRN Reason: Systolic >170 Last Admin: 06/01/17 20:55 Dose: 10 mg Cefazolin Sodium 2 gm/ Sterile (Water) 20 mls @ 60 mls/hr IVPB 0100,0900,1700 [facility] Last Admin: 06/05/17 09:18 Dose: 60 mls/hr Magnesium Hydroxide (Milk Of Magnesia Liq*) 30 ml PO Q4H PRN PRN Reason: CONSTIPATION Last Admin: 03/28/18 11:05 Dose: 30 ml Nebivolol (Bystolic Tab (Nf)) 10 mg PO QAM [facility] Last Admin: 06/05/17 09:18 Dose: 10 mg Ondansetron HCl (Zofran Inj*) 4 mg IV Q6H PRN PRN Reason: NAUSEA/VOMITING Last Admin: 05/28/17 04:49 Dose: 4 mg Polyethylene Glycol/Electrolytes (Miralax*) 17 gm PO DAILY [facility] Last Admin: 06/05/17 09:18 Dose: Not Given Polyvinyl Alcohol (Polyvinyl Alcohol 1.4% Opth*) 1 drop BOTH EYES Q2H PRN PRN Reason: DRY EYE Last Admin: 05/20/17 16:53 Dose: 1 drop Sodium Biphosphate/Sodium Phosphate (Fleet Enema*) 1 bottle KS DAILY PRN PRN Reason: CONSTIPATION Thiamine HCl (Vitamin B-1 Tab*) 100 mg PO DAILY [facility] Last Admin: 06/05/17 09:19 Dose: 100 mg Vital Signs - 8 hr 06/05/17 09:21 Blood Pressure 102/68 (mmHg) Oxygen Devices in Use Now: None Appearance: NAD Eyes: No Scleral Icterus, PERRLA Ears/Nose/Mouth/Throat: NL Teeth, Lips, Gums, Mucous Membranes Moist Neck: NL Appearance and Movements; NL JVP Respiratory: Symmetrical Chest Expansion and Respiratory Effort, Clear to Auscultation Cardiovascular: NL Sounds; No Murmurs; No JVD, RRR Extremities: No Edema, No Clubbing, Cyanosis Skin: No Rash or Ulcers, - - midline back incision c/d/i with sutures in place. no induration. Neurological: NL Sensation, - - oriented to name and [place] [facility] but not year. Result Diagrams: 06/03/17 12:11 06/04/17 06:12 Additional Lab and Data: Microbiology and Other Data: Microbiology 05/29/17 16:45 Blood Venous Aerobic Blood Culture - Final No Growth Day 5 05/29/17 16:45 Blood Venous Anaerobic Blood Culture - Final No Growth Day 5 05/29/17 16:32 Blood Venous Aerobic Blood Culture - Final No Growth Day 5 05/29/17 16:32 Blood Venous Anaerobic Blood Culture - Final No Growth Day 5 05/21/17 17:58 Wound - Knee Left Anaerobic Culture - Final No Growth Day 4 05/21/17 17:58 Knee Left Gram Stain - Final 05/21/17 17:58 Knee Left Wound Culture - Final No Growth Day 4 05/21/17 16:36 Wound - Shoulder Right Anaerobic Culture - Final No Growth Day 4 05/21/17 16:36 Shoulder Right Gram Stain - Final 05/21/17 16:36 Shoulder Right Wound Culture - Final No Growth Day 4 05/21/17 16:36 Wound - Shoulder Right Anaerobic Culture - Final No Growth Day 4 05/21/17 16:36 Shoulder Right Gram Stain - Final 05/21/17 16:36 Shoulder Right Wound Culture - Final No Growth Day 4 04/23/17 10:30 Misc Source (See Comment) - Other Fungal Culture - Final 05/20/17 05:43 Stool Stool Occult Blood (KEEGAN) - Final 05/14/17 14:30 Misc Fluid (See Comment) - Abscess Gram Stain - Final 05/14/17 14:30 Misc Fluid (See Comment) - Abscess Body Fluid Culture - Final 05/14/17 14:30 Misc Fluid (See Comment) - Abscess Skin and Soft Tissue MRSA/ MSSA (PCR - Final Mrsa Negative S.aureus Positive 05/12/17 01:30 Blood Venous Aerobic Blood Culture - Final No Growth Day 5 05/12/17 01:30 Blood Venous Anaerobic Blood Culture - Final No Growth Day 5 05/12/17 01:30 Blood Venous Aerobic Blood Culture - Final No Growth Day 5 05/12/17 01:30 Blood Venous Anaerobic Blood Culture - Final No Growth Day 5 05/12/17 00:48 Blood Venous Aerobic Blood Culture - Final No Growth Day 5 05/12/17 00:48 Blood Venous Anaerobic Blood Culture - Final No Growth Day 5 05/09/17 17:00 Blood Venous Aerobic Blood Culture - Final No Growth Day 5 05/09/17 17:00 Blood Venous Anaerobic Blood Culture - Final No Growth Day 5 05/09/17 17:00 Blood Venous Aerobic Blood Culture - Final No Growth Day 5 05/09/17 17:00 Blood Venous Anaerobic Blood Culture - Final No Growth Day 5 05/08/17 19:15 Joint Fluid(Synovial) Gram Stain - Final 05/08/17 19:15 Joint Fluid(Synovial) Body Fluid Culture - Final No Growth Day 4 05/08/17 19:15 Joint Fluid(Synovial) Skin and Soft Tissue MRSA/MSSA (PCR - Final Mrsa Negative S.aureus Negative 05/08/17 19:15 Body Fluid Gram Stain - Final 05/08/17 19:15 Body Fluid Body Fluid Culture - Final No Growth Day 4 05/08/17 19:15 Body Fluid Skin and Soft Tissue MRSA/MSSA (PCR - Final Mrsa Negative S.aureus Positive 04/27/17 08:00 Blood Venous Aerobic Blood Culture - Final No Growth Day 5 04/27/17 08:00 Blood Venous Anaerobic Blood Culture - Final No Growth Day 5 04/27/17 06:10 Blood Venous Aerobic Blood Culture - Final Staphylococcus Epidermidis 04/27/17 06:10 Blood Venous Anaerobic Blood Culture - Final No Growth Day 5 04/27/17 06:10 Blood Venous Blood MRSA/MSSA (PCR) - Final Mrsa Negative S.aureus Negative 04/26/17 21:00 Wound - Wound Anaerobic Culture - Final 04/26/17 21:00 Wound - Wound Skin and Soft Tissue MRSA/MSSA (PCR - Final Mrsa Negative S.aureus Positive 04/26/17 21:00 Wound - Wound Gram Stain - Final 04/26/17 21:00 Wound - Wound Wound Culture - Final Staphylococcus Aureus 04/23/17 15:53 Wound - Knee Left Anaerobic Culture - Final 04/23/17 15:53 Wound - Knee Left Skin and Soft Tissue MRSA/MSSA (PCR - Final Mrsa Negative S.aureus Positive 04/23/17 15:53 Wound - Knee Left Gram Stain - Final 04/23/17 15:53 Wound - Knee Left Wound Culture - Final Staphylococcus Aureus 04/23/17 10:30 Joint Fluid(Synovial) - Knee Left Gram Stain - Final 04/23/17 10:30 Joint Fluid(Synovial) - Knee Left Body Fluid Culture - Final Staphylococcus Aureus 04/23/17 10:30 Joint Fluid(Synovial) - Knee Left Skin and Soft Tissue MRSA/ MSSA (PCR - Final Mrsa Negative S.aureus Positive 04/22/17 16:56 Wound - Abscess Anaerobic Culture - Final 04/22/17 16:56 Wound - Abscess Skin and Soft Tissue MRSA/MSSA (PCR - Final Mrsa Negative S.aureus Positive 04/22/17 16:56 Wound - Abscess Gram Stain - Final 04/22/17 16:56 Wound - Abscess Wound Culture - Final Staphylococcus Aureus 04/22/17 15:00 Wound - Other Anaerobic Culture - Final 04/22/17 15:00 Misc Source (See Comment) - Other Skin and Soft Tissue MRSA/ MSSA (PCR - Final Mrsa Negative S.aureus Positive 04/22/17 15:00 Misc Source (See Comment) - Other Gram Stain - Final 04/22/17 15:00 Misc Source (See Comment) - Other Wound Culture - Final Staphylococcus Aureus 04/21/17 05:40 Blood Venous Aerobic Blood Culture - Final Staphylococcus Aureus 04/21/17 05:40 Blood Venous Anaerobic Blood Culture - Final Staphylococcus Aureus 04/21/17 05:40 Blood Venous Blood MRSA/MSSA (PCR) - Final Mrsa Negative S.aureus Positive 04/21/17 04:40 Blood Venous Aerobic Blood Culture - Final Staphylococcus Aureus 04/21/17 04:40 Blood Venous Anaerobic Blood Culture - Final Staphylococcus Aureus 04/21/17 04:40 Blood Venous Blood MRSA/MSSA (PCR) - Final Mrsa Negative S.aureus Positive 04/22/17 06:20 Nasal Nasal Screen MRSA (PCR)(KEEGAN) - Final Mrsa Not Detected Assess/Plan/Problems-Billing Assessment: 76 yo M with h/o HTN, ETOH abuse, multiple joint replacements, GI bleed (and partial colon resection due to bleed) who presented to the ER with c/o fever and severe back pain and was ultimately found to have a very large epidural abscess/septic joints, R septic shoulder, L septic knee, right psoas abscess s/ p drainage in the setting of MSSA bacteremia with stay complicated by delirium. Plan for hospice evaluation Wednesday. Had been on TPN but now stopped. - Patient Problems (1) Encephalopathy Current Visit: Yes Status: Acute Code(s): G93.40 - ENCEPHALOPATHY, UNSPECIFIED SNOMED Code(s): 13770004 Comment: - multifactorial associated with infection. 4-5 beers daily prior to admission, now on high dose thiamine for possible Wernicke's. Has not made much progress. Palliative care was able to talk to on 06/04 via phone. now interested in hospice eval and meeting with Dr. Nava on Wednesday along with DNR/DNI(updated 06/04) (2) Epidural abscess Current Visit: Yes Status: Acute Code(s): G06.2 - EXTRADURAL AND SUBDURAL ABSCESS, UNSPECIFIED SNOMED Code(s): 29480936 Comment: The patient presented with a very large epidural abscess with associated septic arthristis He underwent multilevel skip laminectomies from C6 -7- L5 on 04/22/17. Continue rifampin and ancef per Dr. Franklin. trending CRP (rising again now). intermittent fevers and continued encephalopathy. (3) MSSA bacteremia Current Visit: Yes Status: Acute Code(s): R78.81 - BACTEREMIA SNOMED Code( s): 271481673 Comment: (4) Septic arthritis of knee, left Current Visit: Yes Status: Acute Code(s): M00.9 - PYOGENIC ARTHRITIS, UNSPECIFIED SNOMED Code(s): 512240483 Comment: The patient is s/p washout/debridement and liner exchange of the left knee total arthroplasty 04/23/17, Left knee aspiration on 05/08/17 and repeat washout 05/21 Cultures negative from last washouts Continue ancef and rifampin (5) Septic arthritis of shoulder, right Current Visit: Yes Status: Acute Code(s): M00.9 - PYOGENIC ARTHRITIS, UNSPECIFIED SNOMED Code(s): 82625864 Comment: The patient is s/p washout/debridement of R shoulder 04/26/17 and washout 05/21 Cultures negative from last washouts Continue ancef and rifampin. (6) DVT prophylaxis Current Visit: Yes Status: Acute Code(s): [id number] - SNOMED Code(s): 176591585 Comment: - SQ heparin. (7) Gout Current Visit: Yes Status: Acute Code(s): M10.9 - GOUT, UNSPECIFIED SNOMED Code(s): 29665186 Comment: allopurinol (8) Anemia Current Visit: Yes Status: Acute Code(s): D64.9 - ANEMIA, UNSPECIFIED SNOMED Code(s): 472259775 Comment: anemia of chronic disease. has required transfusions. (9) Severe protein-calorie malnutrition Current Visit: Yes Status: Acute Code(s): E43 - UNSPECIFIED SEVERE PROTEIN- CALORIE MALNUTRITION SNOMED Code(s): 116114830 Comment: - Prealbumin <3 -> 4 - stop TPN. likely to hospice if patient can't eat enough on his own. Status and Disposition: Inpatient for extensive MSSA infection management. Potentially to hospice
[2017-06-05] MEDS: Atorvastatin* 20 MG TAB PO SCH (17:48)
[2017-06-06] MEDS: STERILE WATER FOR INJ IVPB SCH ×2 (02:05→09:22)
[2017-06-06] MEDS: CEFAZOLIN IVPB SCH ×2 (02:05→09:22)
[2017-06-06] MEDS: Heparin VIAL(*) 5000 UNITS/ML VIAL (FIVE THOUSAND) SUBCUT SCH ×3 (05:45→21:06)
[2017-06-06] MEDS: amLODIPine TAB* 5 MG PO SCH (09:22)
[2017-06-06] MEDS: Thiamine TAB* 100 MG TAB PO SCH (09:22)
[2017-06-06] MEDS: Polyethylene Glycol 3350* 17 GM PACKET PO SCH (09:22)
[2017-06-06] MEDS: Allopurinol TAB* 100 MG PO SCH (09:23)
[2017-06-06] MEDS: CMCS: Nebivolol TAB (NF) 2.5 MG TAB PO SCH (09:23)
[2017-06-06] MEDS: CEFAZOLIN 2 GM IVPB SCH (16:23)
[2017-06-06] MEDS: SODIUM CHLORIDE IVPB SCH (16:23)
[2017-06-06] MEDS: Atorvastatin* 20 MG TAB PO SCH (16:23)
--- NOTE | 2017-06-06 18:11 | PN ---
Subjective Date of Service: 06/06/17 Interval History: Feels "okay" today but is disoriented. ROS limited by confusion. He calls out to his who is not in the room. He denies pain. No overnight events. Family History: Unchanged from Admission Social History: Unchanged from Admission Past Medical History: Unchanged from Admission Objective Active Medications: Acetaminophen (Tylenol Tab*) 650 mg PO Q4H PRN PRN Reason: FEVER Last Admin: 06/04/17 15:44 Dose: 650 mg Allopurinol (Zyloprim Tab*) 100 mg PO QAM [facility] Last Admin: 06/06/17 09:23 Dose: 100 mg Amlodipine Besylate (Norvasc Tab*) 5 mg PO DAILY [facility] Last Admin: 06/06/17 09:22 Dose: 5 mg Atorvastatin Calcium (Lipitor*) 20 mg PO 1700 [facility] Last Admin: 06/06/17 16:23 Dose: 20 mg Bisacodyl (Dulcolax Supp*) [address] DAILY PRN PRN Reason: CONSTIPATION Last Admin: 05/19/17 11:07 Dose: 10 mg Docusate Sodium (Colace Cap*) 100 mg PO DAILY PRN PRN Reason: CONSTIPATION Last Admin: 05/18/17 16:48 Dose: 100 mg Haloperidol Lactate (Haldol Inj Iv/Im*) 5 mg IV SLOW PU Q6H PRN PRN Reason: AGITATION Last Admin: 05/25/17 22:20 Dose: 5 mg Heparin Sodium (Porcine) (Heparin Flush Picc/Ml/Cvc(*)) 1 - 3 ml FLUSH 0600, 1800 [facility] PRN Reason: Protocol Last Admin: 06/06/17 16:22 Dose: 2 ml Heparin Sodium (Porcine) (Heparin Vial(*)) 5,000 units SUBCUT Q8HR [facility] Last Admin: 06/06/17 14:16 Dose: 5,000 units Hydralazine HCl (Apresoline Iv*) 10 mg IV Q4H PRN PRN Reason: Systolic >170 Last Admin: 06/01/17 20:55 Dose: 10 mg Cefazolin Sodium 2 gm/ Sodium (Chloride) 50 mls @ 100 mls/hr IVPB 0100,0900, 1700 [facility] Last Admin: 06/06/17 16:23 Dose: 100 mls/hr Magnesium Hydroxide (Milk Of Magnesia Liq*) 30 ml PO Q4H PRN PRN Reason: CONSTIPATION Last Admin: 05/19/17 11:05 Dose: 30 ml Nebivolol (Bystolic Tab (Nf)) 10 mg PO QAM [facility] Last Admin: 06/06/17 09:23 Dose: 10 mg Ondansetron HCl (Zofran Inj*) 4 mg IV Q6H PRN PRN Reason: NAUSEA/VOMITING Last Admin: 05/28/17 04:49 Dose: 4 mg Polyethylene Glycol/Electrolytes (Miralax*) 17 gm PO DAILY [facility] Last Admin: 06/06/17 09:22 Dose: 17 gm Polyvinyl Alcohol (Polyvinyl Alcohol 1.4% Opth*) 1 drop BOTH EYES Q2H PRN PRN Reason: DRY EYE Last Admin: 05/20/17 16:53 Dose: 1 drop Sodium Biphosphate/Sodium Phosphate (Fleet Enema*) [address] DAILY PRN PRN Reason: CONSTIPATION Thiamine HCl (Vitamin B-1 Tab*) 100 mg PO DAILY [facility] Last Admin: 06/06/17 09:22 Dose: 100 mg Vital Signs - 8 hr 06/06/17 11:43 Temperature 98.5 F Pulse Rate 77 Respiratory 22 Rate Blood Pressure 106/57 (mmHg) O2 Sat by Pulse 97 Oximetry Oxygen Devices in Use Now: None Appearance: alert, no distress, comfortable, follows all commands but answers some questions inappropriately Eyes: No Scleral Icterus Ears/Nose/Mouth/Throat: NL Teeth, Lips, Gums Neck: NL Appearance and Movements; NL JVP Respiratory: Symmetrical Chest Expansion and Respiratory Effort, Clear to Auscultation Neurological: - - incision from low C-spine to upper L-spine. Sutured, no drainage or surrounding erythema. LLE 3/5 strength, RLE 5/5 strength. Result Diagrams: 06/03/17 12:11 06/04/17 06:12 Additional Lab and Data: Microbiology and Other Data: Microbiology 05/29/17 16:45 Blood Venous Aerobic Blood Culture - Final No Growth Day 5 05/29/17 16:45 Blood Venous Anaerobic Blood Culture - Final No Growth Day 5 05/29/17 16:32 Blood Venous Aerobic Blood Culture - Final No Growth Day 5 05/29/17 16:32 Blood Venous Anaerobic Blood Culture - Final No Growth Day 5 05/21/17 17:58 Wound - Knee Left Anaerobic Culture - Final No Growth Day 4 05/21/17 17:58 Knee Left Gram Stain - Final 05/21/17 17:58 Knee Left Wound Culture - Final No Growth Day 4 05/21/17 16:36 Wound - Shoulder Right Anaerobic Culture - Final No Growth Day 4 05/21/17 16:36 Shoulder Right Gram Stain - Final 05/21/17 16:36 Shoulder Right Wound Culture - Final No Growth Day 4 05/21/17 16:36 Wound - Shoulder Right Anaerobic Culture - Final No Growth Day 4 05/21/17 16:36 Shoulder Right Gram Stain - Final 05/21/17 16:36 Shoulder Right Wound Culture - Final No Growth Day 4 04/23/17 10:30 Misc Source (See Comment) - Other Fungal Culture - Final 05/20/17 05:43 Stool Stool Occult Blood (KEEGAN) - Final 05/14/17 14:30 Misc Fluid (See Comment) - Abscess Gram Stain - Final 05/14/17 14:30 Misc Fluid (See Comment) - Abscess Body Fluid Culture - Final 05/14/17 14:30 Misc Fluid (See Comment) - Abscess Skin and Soft Tissue MRSA/ MSSA (PCR - Final Mrsa Negative S.aureus Positive 05/12/17 01:30 Blood Venous Aerobic Blood Culture - Final No Growth Day 5 05/12/17 01:30 Blood Venous Anaerobic Blood Culture - Final No Growth Day 5 05/12/17 01:30 Blood Venous Aerobic Blood Culture - Final No Growth Day 5 05/12/17 01:30 Blood Venous Anaerobic Blood Culture - Final No Growth Day 5 05/12/17 00:48 Blood Venous Aerobic Blood Culture - Final No Growth Day 5 05/12/17 00:48 Blood Venous Anaerobic Blood Culture - Final No Growth Day 5 05/09/17 17:00 Blood Venous Aerobic Blood Culture - Final No Growth Day 5 05/09/17 17:00 Blood Venous Anaerobic Blood Culture - Final No Growth Day 5 05/09/17 17:00 Blood Venous Aerobic Blood Culture - Final No Growth Day 5 05/09/17 17:00 Blood Venous Anaerobic Blood Culture - Final No Growth Day 5 05/08/17 19:15 Joint Fluid(Synovial) Gram Stain - Final 05/08/17 19:15 Joint Fluid(Synovial) Body Fluid Culture - Final No Growth Day 4 05/08/17 19:15 Joint Fluid(Synovial) Skin and Soft Tissue MRSA/MSSA (PCR - Final Mrsa Negative S.aureus Negative 05/08/17 19:15 Body Fluid Gram Stain - Final 05/08/17 19:15 Body Fluid Body Fluid Culture - Final No Growth Day 4 05/08/17 19:15 Body Fluid Skin and Soft Tissue MRSA/MSSA (PCR - Final Mrsa Negative S.aureus Positive 04/27/17 08:00 Blood Venous Aerobic Blood Culture - Final No Growth Day 5 04/27/17 08:00 Blood Venous Anaerobic Blood Culture - Final No Growth Day 5 04/27/17 06:10 Blood Venous Aerobic Blood Culture - Final Staphylococcus Epidermidis 04/27/17 06:10 Blood Venous Anaerobic Blood Culture - Final No Growth Day 5 04/27/17 06:10 Blood Venous Blood MRSA/MSSA (PCR) - Final Mrsa Negative S.aureus Negative 04/26/17 21:00 Wound - Wound Anaerobic Culture - Final 04/26/17 21:00 Wound - Wound Skin and Soft Tissue MRSA/MSSA (PCR - Final Mrsa Negative S.aureus Positive 04/26/17 21:00 Wound - Wound Gram Stain - Final 04/26/17 21:00 Wound - Wound Wound Culture - Final Staphylococcus Aureus 04/23/17 15:53 Wound - Knee Left Anaerobic Culture - Final 04/23/17 15:53 Wound - Knee Left Skin and Soft Tissue MRSA/MSSA (PCR - Final Mrsa Negative S.aureus Positive 04/23/17 15:53 Wound - Knee Left Gram Stain - Final 04/23/17 15:53 Wound - Knee Left Wound Culture - Final Staphylococcus Aureus 04/23/17 10:30 Joint Fluid(Synovial) - Knee Left Gram Stain - Final 04/23/17 10:30 Joint Fluid(Synovial) - Knee Left Body Fluid Culture - Final Staphylococcus Aureus 04/23/17 10:30 Joint Fluid(Synovial) - Knee Left Skin and Soft Tissue MRSA/ MSSA (PCR - Final Mrsa Negative S.aureus Positive 04/22/17 16:56 Wound - Abscess Anaerobic Culture - Final 04/22/17 16:56 Wound - Abscess Skin and Soft Tissue MRSA/MSSA (PCR - Final Mrsa Negative S.aureus Positive 04/22/17 16:56 Wound - Abscess Gram Stain - Final 04/22/17 16:56 Wound - Abscess Wound Culture - Final Staphylococcus Aureus 04/22/17 15:00 Wound - Other Anaerobic Culture - Final 04/22/17 15:00 Misc Source (See Comment) - Other Skin and Soft Tissue MRSA/ MSSA (PCR - Final Mrsa Negative S.aureus Positive 04/22/17 15:00 Misc Source (See Comment) - Other Gram Stain - Final 04/22/17 15:00 Misc Source (See Comment) - Other Wound Culture - Final Staphylococcus Aureus 04/21/17 05:40 Blood Venous Aerobic Blood Culture - Final Staphylococcus Aureus 04/21/17 05:40 Blood Venous Anaerobic Blood Culture - Final Staphylococcus Aureus 04/21/17 05:40 Blood Venous Blood MRSA/MSSA (PCR) - Final Mrsa Negative S.aureus Positive 04/21/17 04:40 Blood Venous Aerobic Blood Culture - Final Staphylococcus Aureus 04/21/17 04:40 Blood Venous Anaerobic Blood Culture - Final Staphylococcus Aureus 04/21/17 04:40 Blood Venous Blood MRSA/MSSA (PCR) - Final Mrsa Negative S.aureus Positive 04/22/17 06:20 Nasal Nasal Screen MRSA (PCR)(KEEGAN) - Final Mrsa Not Detected Assess/Plan/Problems-Billing Assessment: 76 yo M with h/o HTN, ETOH abuse, multiple joint replacements, GI bleed (and partial colon resection due to bleed) was admitted 04/21 with fevers and back pain and was found to have a very large epidural abscess, R septic shoulder, L septic knee, right psoas abscess s/p drainage in the setting of MSSA bacteremia with stay complicated by ongoing delirium. Evaluated by hospice, family is leaning towards hospice plans. - Patient Problems (1) Encephalopathy Current Visit: Yes Status: Acute Code(s): G93.40 - ENCEPHALOPATHY, UNSPECIFIED SNOMED Code(s): 25966579 Comment: Likely multifactorial but seems to be improving based on prior notes Still, far from baseline and unlikely to return to it given the extent of his infections and severity of his illness Meeting again Wednesday to discuss hospice DNR/DNI(updated 06/04) (2) Epidural abscess Current Visit: Yes Status: Acute Code(s): G06.2 - EXTRADURAL AND SUBDURAL ABSCESS, UNSPECIFIED SNOMED Code(s): 00724858 Comment: Extensive at admission S/p skip laminectomies from C6-7- L5 on 04/22/17. Continue rifampin and ancef per Dr. Franklin. (3) MSSA bacteremia Current Visit: Yes Status: Acute Code(s): R78.81 - BACTEREMIA SNOMED Code( s): 963222961 Comment: Repeat blood cultures last week remain negative Plan for rifampin/ancef IV for now and then lifelong po antibiotics if he does not go to hospice. (4) Septic arthritis of knee, left Current Visit: Yes Status: Acute Code(s): M00.9 - PYOGENIC ARTHRITIS, UNSPECIFIED SNOMED Code(s): 905885900 Comment: s/p washout/debridement and liner exchange of the left knee total arthroplasty 04/23/17, Left knee aspiration on 05/08/17 and repeat washout 05/21 Cultures negative from last washouts Continue ancef and rifampin (5) Septic arthritis of shoulder, right Current Visit: Yes Status: Acute Code(s): M00.9 - PYOGENIC ARTHRITIS, UNSPECIFIED SNOMED Code(s): 73369769 Comment: s/p washout/debridement of R shoulder 04/26/17 and washout 05/21 Cultures negative from last washouts Continue ancef and rifampin. (6) Severe protein-calorie malnutrition Current Visit: Yes Status: Acute Code(s): E43 - UNSPECIFIED SEVERE PROTEIN- CALORIE MALNUTRITION SNOMED Code(s): 567941076 Comment: diet advanced, now taking pureed diet Status and Disposition: Ongoing hospice discussion
[2017-06-06] MEDS: Acetaminophen TAB* 325 MG PO PRN (22:20)
[2017-06-07] MEDS: SODIUM CHLORIDE IVPB SCH ×2 (00:40→08:49)
[2017-06-07] MEDS: CEFAZOLIN 2 GM IVPB SCH ×2 (00:40→08:49)
[2017-06-07] MEDS: Heparin VIAL(*) 5000 UNITS/ML VIAL (FIVE THOUSAND) SUBCUT SCH ×3 (04:36→22:27)
[2017-06-07] MEDS: amLODIPine TAB* 5 MG PO SCH (08:49)
[2017-06-07] MEDS: Thiamine TAB* 100 MG TAB PO SCH (08:49)
[2017-06-07] MEDS: Allopurinol TAB* 100 MG PO SCH (08:49)
[2017-06-07] MEDS: Polyethylene Glycol 3350* 17 GM PACKET PO SCH (08:50)
[2017-06-07] MEDS: CMCS: Nebivolol TAB (NF) 2.5 MG TAB PO SCH (08:50)
--- NOTE | 2017-06-07 12:26 | PN ---
Subjective Date of Service: 06/07/17 Interval History: HOSPITALIST PROGRESS NOTE Patient seen and examined at bedside. Care reviewed and d/w his RN Lulu Young. He feels well today. States his pain is controlled and his waiting for his (he thinks it's already afternoon). When I asked if he needed something he answered "some pizza". Does not remember me from the other week "so many people here". Family History: Unchanged from Admission Social History: Unchanged from Admission Past Medical History: Unchanged from Admission Objective Active Medications: Acetaminophen (Tylenol Tab*) 650 mg PO Q4H PRN PRN Reason: FEVER Last Admin: 06/06/17 22:20 Dose: 650 mg Allopurinol (Zyloprim Tab*) 100 mg PO QAM [facility] Last Admin: 06/07/17 08:49 Dose: 100 mg Amlodipine Besylate (Norvasc Tab*) 5 mg PO DAILY [facility] Last Admin: 06/07/17 08:49 Dose: 5 mg Atorvastatin Calcium (Lipitor*) 20 mg PO 1700 [facility] Last Admin: 06/06/17 16:23 Dose: 20 mg Bisacodyl (Dulcolax Supp*) 10 mg [place] DAILY PRN PRN Reason: CONSTIPATION Last Admin: 05/19/17 11:07 Dose: 10 mg Docusate Sodium (Colace Cap*) 100 mg PO DAILY PRN PRN Reason: CONSTIPATION Last Admin: 05/18/17 16:48 Dose: 100 mg Haloperidol Lactate (Haldol Inj Iv/Im*) 5 mg IV SLOW PU Q6H PRN PRN Reason: AGITATION Last Admin: 05/25/17 22:20 Dose: 5 mg Heparin Sodium (Porcine) (Heparin Flush Picc/Ml/Cvc(*)) 1 - 3 ml FLUSH 0600, 1800 [facility] PRN Reason: Protocol Last Admin: 06/07/17 10:26 Dose: 1 ml Heparin Sodium (Porcine) (Heparin Vial(*)) 5,000 units SUBCUT Q8HR [facility] Last Admin: 06/07/17 04:36 Dose: 5,000 units Hydralazine HCl (Apresoline Iv*) 10 mg IV Q4H PRN PRN Reason: Systolic >170 Last Admin: 06/01/17 20:55 Dose: 10 mg Cefazolin Sodium/Dextrose (Kefzol 2 Gm Premix(*)) 2 gm in 50 mls @ 100 mls/hr IVPB 0100,0900,1700 [facility] Magnesium Hydroxide (Milk Of Magnesia Liq*) 30 ml PO Q4H PRN PRN Reason: CONSTIPATION Last Admin: 05/19/17 11:05 Dose: 30 ml Nebivolol (Bystolic Tab (Nf)) 10 mg PO QAM [facility] Last Admin: 06/07/17 08:50 Dose: 10 mg Ondansetron HCl (Zofran Inj*) 4 mg IV Q6H PRN PRN Reason: NAUSEA/VOMITING Last Admin: 05/28/17 04:49 Dose: 4 mg Polyethylene Glycol/Electrolytes (Miralax*) 17 gm PO DAILY [facility] Last Admin: 06/07/17 08:50 Dose: 17 gm Polyvinyl Alcohol (Polyvinyl Alcohol 1.4% Opth*) 1 drop BOTH EYES Q2H PRN PRN Reason: DRY EYE Last Admin: 05/20/17 16:53 Dose: 1 drop Sodium Biphosphate/Sodium Phosphate (Fleet Enema*) 1 bottle [place] DAILY PRN PRN Reason: CONSTIPATION Thiamine HCl (Vitamin B-1 Tab*) 100 mg PO DAILY [facility] Last Admin: 06/07/17 08:49 Dose: 100 mg Vital Signs - 8 hr 06/07/17 06/07/17 06/07/17 07:50 08:09 11:25 Temperature 99.1 F 98.5 F Pulse Rate 74 37 Respiratory 20 16 20 Rate Blood Pressure 107/56 103/58 (mmHg) O2 Sat by Pulse 98 95 100 Oximetry Oxygen Devices in Use Now: None Appearance: Elderly male lying in bed in [facility]. Eyes: No Scleral Icterus Ears/Nose/Mouth/Throat: Mucous Membranes Moist Neck: Trachea Midline Respiratory: Symmetrical Chest Expansion and Respiratory Effort, Clear to Auscultation Cardiovascular: RRR - Normal S1 and S2 Abdominal: NL Sounds; No Tenderness; No Distention Neurological: - - AAOx1 (self only) Result Diagrams: 06/03/17 12:11 06/04/17 06:12 Assess/Plan/Problems-Billing Assessment: Mr. Bonilla is a 76 yo M with h/o HTN, ETOH abuse, multiple joint replacements, GI bleed (and partial colon resection due to bleed) was admitted 04/21 with fevers and back pain and was found to have a very large epidural abscess, R septic shoulder, L septic knee, right psoas abscess s/p drainage in the setting of MSSA bacteremia with stay complicated by ongoing delirium. 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 - Blood cultures have been negative since 05/09/17. - Continue rifampin and ancef for now until Hospice decision is made. (2) Encephalopathy Comment: - Likely multifactorial but seems to be improving based on my prior visits, but still far from baseline and unlikely to return to it given the extent of his infections and severity of his illness. - Hospice meeting today. (3) HTN (hypertension) Comment: - Controlled. - Continue nebivolol 10mg daily and amlodipine 5mg daily. (4) Severe protein-calorie malnutrition Comment: - Ate 80% of his dinner last night and 40% of breakfast today. - Off TPN since last week. (5) DVT prophylaxis Comment: - SQ heparin. (6) DNR (do not resuscitate) Status and Disposition: Inpatient for management of MSSA septicemia.
--- NOTE | 2017-06-07 13:29 | PN ---
Progress Note - Progress Note Date of Service: 06/07/17 SOAP: Subjective: 76 y/o male s/p multiple washouts R knee, L shoulder. Patient without complaints, more coherent then prior, however still non-sensical. states unable to bend knee to full extension. Objective: General- well appearing, NAD resting in chair eating lunch with aide comfortably. MSK- Sutures removed from R shoulder, L knee without difficulty, no bleeding, dehiscence noted. Vital Signs Temp 98.5 F 06/07/17 11:25 Pulse 37 06/07/17 11:25 Resp 20 06/07/17 11:25 BP 103/58 06/07/17 11:25 Pulse Ox 100 06/07/17 11:25 Intake & Output 06/06/17 06/07/17 06/07/17 18:59 06:59 18:59 Intake Total 820 476 50 Balance 820 476 50 Intake: IV Fluids 100 16 ABX - CEFAZOLIN 100 NS (0.9%) 16 IVPB 60 50 ABX - CEFAZOLIN 60 50 Oral 720 400 Other: Estimated Void Large Large # Bowel Movements 0 # Voids 2 1 Assessment: 76 y/o male s/p multiple washouts R knee, L shoulder, last 05/22 Plan: - Continue current care - Shoulder, knee wounds stable, repeat CRP tomorrow - ABX per ID - Continue PT Acetaminophen (Tylenol Tab*) 650 mg PO Q4H PRN PRN Reason: FEVER Last Admin: 06/06/17 22:20 Dose: 650 mg Allopurinol (Zyloprim Tab*) 100 mg PO QAM [facility] Last Admin: 06/07/17 08:49 Dose: 100 mg Amlodipine Besylate (Norvasc Tab*) 5 mg PO DAILY [facility] Last Admin: 06/07/17 08:49 Dose: 5 mg Atorvastatin Calcium (Lipitor*) 20 mg PO 1700 [facility] Last Admin: 06/06/17 16:23 Dose: 20 mg Bisacodyl (Dulcolax Supp*) 10 mg [place] DAILY PRN PRN Reason: CONSTIPATION Last Admin: 05/19/17 11:07 Dose: 10 mg Docusate Sodium (Colace Cap*) 100 mg PO DAILY PRN PRN Reason: CONSTIPATION Last Admin: 05/18/17 16:48 Dose: 100 mg Haloperidol Lactate (Haldol Inj Iv/Im*) 5 mg IV SLOW PU Q6H PRN PRN Reason: AGITATION Last Admin: 05/25/17 22:20 Dose: 5 mg Heparin Sodium (Porcine) (Heparin Flush Picc/Ml/Cvc(*)) 1 - 3 ml FLUSH 0600, 1800 [facility] PRN Reason: Protocol Last Admin: 06/07/17 10:26 Dose: 1 ml Heparin Sodium (Porcine) (Heparin Vial(*)) 5,000 units SUBCUT Q8HR [facility] Last Admin: 06/07/17 04:36 Dose: 5,000 units Hydralazine HCl (Apresoline Iv*) 10 mg IV Q4H PRN PRN Reason: Systolic >170 Last Admin: 06/01/17 20:55 Dose: 10 mg Cefazolin Sodium/Dextrose (Kefzol 2 Gm Premix(*)) 2 gm in 50 mls @ 100 mls/hr IVPB 0100,0900,1700 [facility] Magnesium Hydroxide (Milk Of Magnesia Liq*) 30 ml PO Q4H PRN PRN Reason: CONSTIPATION Last Admin: 05/19/17 11:05 Dose: 30 ml Nebivolol (Bystolic Tab (Nf)) 10 mg PO QAM [facility] Last Admin: 06/07/17 08:50 Dose: 10 mg Ondansetron HCl (Zofran Inj*) 4 mg IV Q6H PRN PRN Reason: NAUSEA/VOMITING Last Admin: 05/28/17 04:49 Dose: 4 mg Polyethylene Glycol/Electrolytes (Miralax*) 17 gm PO DAILY [facility] Last Admin: 06/07/17 08:50 Dose: 17 gm Polyvinyl Alcohol (Polyvinyl Alcohol 1.4% Opth*) 1 drop BOTH EYES Q2H PRN PRN Reason: DRY EYE Last Admin: 05/20/17 16:53 Dose: 1 drop Sodium Biphosphate/Sodium Phosphate (Fleet Enema*) 1 bottle [place] DAILY PRN PRN Reason: CONSTIPATION Thiamine HCl (Vitamin B-1 Tab*) 100 mg PO DAILY [facility] Last Admin: 06/07/17 08:49 Dose: 100 mg
--- NOTE | 2017-06-07 17:13 | PN ---
Progress Note - Progress Note Date of Service: 06/07/17 Note: Met with patient's /HCP Sameera, Sameera's brother, patient's son and daughter and granddaughter today. Sameera signed DNR/DNI on MOL last Wednesday, and TPN was discontinued. Since then, patient's appetite has improved, and he ate 80% of dinner last night and 40% of breakfast today. Today family had many questions about palliative care and status of the patient. He looks much improved today, compared to 06/03/17 when I first saw him. He is sitting up in chair, still Ox1 only but able to interact, occasionally nodding off, and has no complaints. Blood cultures have now been negative for several weeks, and according to family, Dr. Galan told them his left knee was "spotless" and that he had no more orthopedic issues to address. They are wanting Dr. Melendrez and Dr. Franklin to weigh in on timing of discontinuation of antibiotics. They are encouraged by his increased eating and not interested in moving to palliative care at this time. We discussed his continued encephalopathy and his very poor nutritional status. It is possible that his renewed appetite and eating will improve his malnutrition (albumin is still low at 2.1 and prealbumin is 4 as of 06/04/17) and may even improve his encephalopathy. They would like to 1) Continue the patient off TPN and see if he manages to improve his nutritional status by eating better, 2) Maintain antibiotics until Dr. Melendrez and Dr. Franklin suggest d/c based on labs ( CRP is improving, down to 78.72) and imaging (they would like another CT scan to assess for abscesses) and then see if he can maintain without IV antibiotics before leaving hospital, 3) Continue PT efforts and hope for STR at [facility] ( Pt has been seen by PT, remains a 2 person assist for transfers at best, often unable to participate) 4) Continue efforts to diagnose cause of encephalopathy. We discussed that the more ominous signs are his continued encephalopathy and his malnutrition. MSSA disseminated infection appears to be improving at this time. Will continue to monitor progress. says she has no help at home and is still working, patient would need SNF if not able to recover adequately to return to independent living. 80 minutes were spent with the patient and his family discussing his case, his care, his diagnoses and prognoses.
[2017-06-07] MEDS: ceFAZolin 2 GM PREMIX (*) 2 GM/50 ML BAG IVPB SCH (17:32)
[2017-06-07] MEDS: Atorvastatin* 20 MG TAB PO SCH (17:32)
[2017-06-08] MEDS: ceFAZolin 2 GM PREMIX (*) 2 GM/50 ML BAG IVPB SCH ×3 (00:30→16:54)
[2017-06-08] MEDS: Heparin VIAL(*) 5000 UNITS/ML VIAL (FIVE THOUSAND) SUBCUT SCH ×3 (05:52→20:59)
[2017-06-08] MEDS: CMCS: Nebivolol TAB (NF) 2.5 MG TAB PO SCH (09:43)
[2017-06-08] MEDS: amLODIPine TAB* 5 MG PO SCH (09:43)
[2017-06-08] MEDS: Allopurinol TAB* 100 MG PO SCH (09:44)
[2017-06-08] MEDS: Thiamine TAB* 100 MG TAB PO SCH (09:44)
[2017-06-08] MEDS: Polyethylene Glycol 3350* 17 GM PACKET PO SCH (09:44)
--- NOTE | 2017-06-08 10:31 | PN ---
Progress Note - Progress Note Date of Service: 06/08/17 SOAP: Subjective: [] 76 y/o male s/p R shoulder, L knee washouts. Denies pain, fever, chills, SOB , CP. Patient complains of left ankle pain while working with PT ( ez stand) and to nursing staff. Objective: General- Well appearing, NAD resting in chair comfortably, answers questions appropriately, reports he vaguely recalls having knee and shoulder washed out. MSK- L knee- ROM 0-45 PROM and AROM, resisting further ROM though not appearing to be in pain. Non-tender to palpation, neg homans, incisions CDI with well approximated wound edges R Shoulder- Incisions CDI, no drainage, no erythema. PROM FF 120, abd 90. Unable to produce AROM. Left ankle: nonerythematous, not hot to touch. Mildly edematous. Stiff ROM equivalent to right ankle. No pain with df/pf. Complains of pain with inversion and eversion though unable to pinpoint location of pain. No tenderness over medial or lateral maleollus, is mildly tender inferior to malleoli on either side of the ankle, though inconsistently so. Assessment: []S/P right shoulder and left knee washout left ankle pain Plan: []PT/OT. ABX per ID CBC, CRP, Sed Rate - awaiting results -- NPO after midnight in event he may require washout tomorrow Hold heparin at midnight Vital Signs Temp 98.0 F 06/08/17 02:22 Pulse 78 06/08/17 02:22 Resp 20 06/08/17 02:22 BP 113/60 06/08/17 02:22 Pulse Ox 98 06/08/17 02:22 Intake & Output 06/07/17 06/08/17 06/08/17 18:59 06:59 18:59 Intake Total 620 93 Balance 620 93 Intake: IV Fluids 20 30 NS (0.9%) 20 30 thiamine 0 IVPB 100 63 ABX - CEFAZOLIN 100 63 Oral 500 0 Other: Estimated Void Large # Bowel Movements 0 1 Estimated Stool Amount Medium # Voids 2 2 Laboratory Last Values WBC 8.4 10^3/ul (3.5-10.8) 06/03/17 12:11 RBC 2.64 10^6/ul (4.0-5.4) L 06/03/17 12:11 Hgb 7.7 g/dl (14.0-18.0) L 06/03/17 12:11 Hct 23 % (42-52) L 06/03/17 12:11 MCV 86 fL (80-94) 06/03/17 12:11 MCH 29 pg (27-31) 06/03/17 12:11 MCHC 34 g/dl (31-36) 06/03/17 12:11 RDW 16 % (10.5-15) H 06/03/17 12:11 Plt Count 341 10^3/ul (150-450) 06/03/17 12:11 MPV 6.9 um3 (7.4-10.4) L 06/03/17 12:11 Neut % (Auto) Not Reportable 06/03/17 12:11 Lymph % (Auto) Not Reportable 06/03/17 12:11 Lewis % (Auto) Not Reportable 06/03/17 12:11 Eos % (Auto) Not Reportable 06/03/17 12:11 Baso % (Auto) Not Reportable 06/03/17 12:11 Absolute Neuts (auto) 5.5 10^3/ul (1.5-7.7) 06/03/17 12:11 Absolute Lymphs (auto) 1.0 10^3/ul (1.0-4.8) 06/03/17 12:11 Absolute Monos (auto) 1.2 10^3/ul (0-0.8) H 06/03/17 12:11 Absolute Eos (auto) 0.6 10^3/ul (0-0.6) 06/03/17 12:11 Absolute Basos (auto) 0.1 10^3/ul (0-0.2) 06/03/17 12:11 Absolute Nucleated RBC 0 10^3/ul 06/03/17 12:11 Immature Gran % 6 % (0-9) 06/03/17 12:11 Neutrophils % 70 % (38-83) 06/03/17 12:11 Band Neutrophils % 3 % (0-8) 06/03/17 12:11 Lymphocytes % 9 % (25-47) L 06/03/17 12:11 Monocytes % 6 % (0-7) 06/03/17 12:11 Eosinophils % 9 % (0-6) H 06/03/17 12:11 Basophils % 0 % (0-2) 06/03/17 12:11 Metamyelocytes % 1 % (0-2) 06/03/17 12:11 Myelocytes % 2 % (0-1) H 06/03/17 12:11 Nucleated RBC % 0 06/03/17 12:11 Abs Neuts (Manual) 5.9 10^3/ul (1.5-7.7) 06/03/17 12:11 Abs Lymphs (Manual) 0.8 10^3/ul (1.0-4.8) L 06/03/17 12:11 Abs Monocytes (Manual) 0.5 10^3/ul (0-0.8) 06/03/17 12:11 Absolute Eos (Manual) 0.8 10^3/ul (0-0.6) H 06/03/17 12:11 Abs Basophils (Manual) 0 10^3/ul (0-0.2) 06/03/17 12:11 Normal RBC Morphology Not Reportable 06/03/17 12:11 Polychromasia 1+ 05/19/17 03:15 Anisocytosis 1+ 06/03/17 12:11 Microcytosis 2+ 05/19/17 03:15 INR (Anticoag Therapy) 1.59 (0.77-1.02) H 05/21/17 06:06 APTT 35.6 seconds (26.0-36.3) 04/23/17 00:48 Patient Temperature Not Reportable 04/23/17 00:48 ABG pH 7.44 (7.35-7.45) 04/23/17 00:48 ABG pH (Temp Correct) Not Reportable 04/23/17 00:48 ABG pCO2 31 mmHg (35-45) L 04/23/17 00:48 ABG pCO2 (Temp Corrct Not Reportable 04/23/17 00:48 ABG pO2 128 mmHg (80-100) H 04/23/17 00:48 ABG pO2 (Temp Correct Not Reportable 04/23/17 00:48 ABG HCO3 23.0 mmol/L (19-31) 04/23/17 00:48 ABG O2 Saturation 99.2 % (95-98) H 04/23/17 00:48 ABG Base Excess -2.5 (-2.0-2.0) L 04/23/17 00:48 Respiration Rate 14 04/23/17 00:48 O2 Delivery Device ventilator 04/23/17 00:48 Ventilator Type 600 04/23/17 00:48 Vent Mode apv 04/23/17 00:48 FiO2 50 04/23/17 00:48 Inspiratory Time 1.0 04/23/17 00:48 PEEP 5 04/23/17 00:48 Pressure Support Not Reportable 04/23/17 00:48 Pressure Control Not Reportable 04/23/17 00:48 EPAP Not Reportable 04/23/17 00:48 IPAP Not Reportable 04/23/17 00:48 BiPAP Not Reportable 04/23/17 00:48 Sodium 131 mmol/L (139-145) L 06/04/17 06:12 Potassium 4.5 mmol/L (3.5-5.0) 06/04/17 06:12 Chloride 107 mmol/L (101-111) 06/04/17 06:12 Carbon Dioxide 19 mmol/L (22-32) L 06/04/17 06:12 Anion Gap 5 mmol/L (2-11) 06/04/17 06:12 BUN 15 mg/dL (6-24) 06/04/17 06:12 Creatinine 0.51 mg/dL (0.67-1.17) L 06/04/17 06:12 Est GFR ( Amer) 204.3 (>60) 06/04/17 06:12 Est GFR (Non-Af Amer) 158.9 (>60) 06/04/17 06:12 BUN/Creatinine Ratio 29.4 (8-20) H 06/04/17 06:12 Glucose 88 mg/dL (70-100) 06/04/17 06:12 POC Glucose (mg/dL) 130 mg/dL (70-100) H 06/04/17 12:30 Lactic Acid 1.1 mmol/L (0.5-2.0) 04/21/17 08:43 Calcium 8.3 mg/dL (8.6-10.3) L 06/04/17 06:12 Phosphorus 6.0 mg/dL (2.5-5.0) H 06/04/17 06:12 Magnesium 1.7 mg/dL (1.9-2.7) L 06/04/17 06:12 Iron < 15 ug/dL (50-212) L 05/12/17 14:24 TIBC 151 mcg/dL (250-450) L 05/12/17 14:24 % Saturation 10 % (15-55) L 05/12/17 14:24 Unsat Iron Binding 136.88556 ug/dL 05/12/17 14:24 Transferrin 108 mg/dL (203-362) L 05/12/17 14:24 Ferritin 1062.7 ng/mL (24-336) H 05/12/17 14:24 Total Bilirubin 0.30 mg/dL (0.2-1.0) 06/04/17 06:12 AST 43 U/L (13-39) H 06/04/17 06:12 ALT 15 U/L (7-52) 06/04/17 06:12 Alkaline Phosphatase 158 U/L (34-104) H 06/04/17 06:12 Ammonia 46 mcmol/L (16-53) 05/29/17 08:30 Troponin I 0.03 ng/mL (<0.04) 04/21/17 04:40 C-Reactive Protein 78.72 mg/L (< 5.00) H 06/03/17 12:11 Total Protein 5.9 g/dL (6.4-8.9) L 06/04/17 06:12 Albumin 2.1 g/dL (3.2-5.2) L 06/04/17 06:12 Globulin 3.8 g/dL (2-4) 06/04/17 06:12 Albumin/Globulin Ratio 0.6 (1-3) L 06/04/17 06:12 Prealbumin 4 mg/dL (18-38) L 06/04/17 06:12 Triglycerides 103 mg/dL 06/04/17 06:12 Cholesterol 84 mg/dL 06/04/17 06:12 Lipase 28 U/L (11.0-82.0) 04/21/17 04:40 Urine Color [place] 06/03/17 14:13 Urine Appearance Clear 06/03/17 14:13 Urine pH 5.0 (5-9) 06/03/17 14:13 Ur Specific [place] 1.018 (1.010-1.030) 06/03/17 14:13 Urine Protein Negative (Negative) 06/03/17 14:13 Urine Ketones Negative (Negative) 06/03/17 14:13 Urine Blood Negative (Negative) 06/03/17 14:13 Urine Nitrate Negative (Negative) 06/03/17 14:13 Urine Bilirubin Negative (Negative) 06/03/17 14:13 Urine Urobilinogen Negative (Negative) 06/03/17 14:13 Ur Leukocyte Esterase Negative (Negative) 06/03/17 14:13 Urine Glucose Negative (Negative) 06/03/17 14:13 Fluid Source Synovial fluid 05/08/17 19:15 Fluid Volume 20 mL 05/08/17 19:15 Fluid Color Red 05/08/17 19:15 Fluid Appearance Bloody 05/08/17 19:15 Fluid WBC 8676 /mcL (0-215705) 05/08/17 19:15 Fluid RBC 98735 /mcL 05/08/17 19:15 Fluid Tot Cell Count 100 05/08/17 19:15 Fluid Neutrophils 93 % 05/08/17 19:15 Fluid Band Neutrophils 3 % 05/08/17 19:15 Fluid Lymphocytes 3 % 05/08/17 19:15 Fluid Reactive Lymphs Cancelled 05/14/17 14:30 Fluid Monocytes 1 % 05/08/17 19:15 Fluid Eosinophils Cancelled 05/14/17 14:30 Fluid Basophils Cancelled 05/14/17 14:30 Fluid Promyelocytes Cancelled 05/14/17 14:30 Fluid Myelocytes Cancelled 05/14/17 14:30 Fluid Metamyelocytes Cancelled 05/14/17 14:30 Fluid Blast Cells Cancelled 05/14/17 14:30 Fluid Nucleated RBCs Cancelled 05/14/17 14:30 Fluid Other Cells 1 04/23/17 10:30 Fluid Cell Count Rvw By 05/08/17 19:15 Fluid Crystals None seen (None Seen) 05/08/17 19:15 Fluid Total Protein 3.1 g/dL 04/23/17 10:30 Fluid Comment Cancelled 05/14/17 14:30 Blood Type O Positive 05/29/17 16:32 Antibody Screen Negative 05/29/17 16:32 Crossmatch See Detail 05/29/17 16:32
--- NOTE | 2017-06-08 13:57 | PN ---
Subjective Date of Service: 06/08/17 Interval History: HOSPITALIST PROGRESS NOTE Patient seen and examined at bedside. He offered no complaints when I saw him, but later on, while working with PT he c/o left ankle pain. Ate 90% of dinner, but only 5% of his breakfast today. Family History: Unchanged from Admission Social History: Unchanged from Admission Past Medical History: Unchanged from Admission Objective Active Medications: Acetaminophen (Tylenol Tab*) 650 mg PO Q4H PRN PRN Reason: FEVER Last Admin: 06/06/17 22:20 Dose: 650 mg Allopurinol (Zyloprim Tab*) 100 mg PO QAM [facility] Last Admin: 06/08/17 09:44 Dose: 100 mg Amlodipine Besylate (Norvasc Tab*) 5 mg PO DAILY [facility] Last Admin: 06/08/17 09:43 Dose: 5 mg Atorvastatin Calcium (Lipitor*) 20 mg PO 1700 [facility] Last Admin: 06/07/17 17:32 Dose: 20 mg Bisacodyl (Dulcolax Supp*) 10 mg CO DAILY PRN PRN Reason: CONSTIPATION Last Admin: 05/19/17 11:07 Dose: 10 mg Docusate Sodium (Colace Cap*) 100 mg PO DAILY PRN PRN Reason: CONSTIPATION Last Admin: 05/18/17 16:48 Dose: 100 mg Haloperidol Lactate (Haldol Inj Iv/Im*) 5 mg IV SLOW PU Q6H PRN PRN Reason: AGITATION Last Admin: 05/25/17 22:20 Dose: 5 mg Heparin Sodium (Porcine) (Heparin Flush Picc/Ml/Cvc(*)) 1 - 3 ml FLUSH 0600, 1800 [facility] PRN Reason: Protocol Last Admin: 06/08/17 05:47 Dose: Not Given Heparin Sodium (Porcine) (Heparin Vial(*)) 5,000 units SUBCUT Q8HR [facility] Last Admin: 06/08/17 05:52 Dose: 5,000 units Hydralazine HCl (Apresoline Iv*) 10 mg IV Q4H PRN PRN Reason: Systolic >170 Last Admin: 06/01/17 20:55 Dose: 10 mg Cefazolin Sodium/Dextrose (Kefzol 2 Gm Premix(*)) 2 gm in 50 mls @ 100 mls/hr IVPB 0100,0900,1700 [facility] Last Admin: 06/08/17 09:43 Dose: 100 mls/hr Magnesium Hydroxide (Milk Of Magnesia Liq*) 30 ml PO Q4H PRN PRN Reason: CONSTIPATION Last Admin: 05/19/17 11:05 Dose: 30 ml Nebivolol (Bystolic Tab (Nf)) 10 mg PO QAM [facility] Last Admin: 06/08/17 09:43 Dose: 10 mg Ondansetron HCl (Zofran Inj*) 4 mg IV Q6H PRN PRN Reason: NAUSEA/VOMITING Last Admin: 05/28/17 04:49 Dose: 4 mg Polyethylene Glycol/Electrolytes (Miralax*) 17 gm PO DAILY [facility] Last Admin: 06/08/17 09:44 Dose: 17 gm Polyvinyl Alcohol (Polyvinyl Alcohol 1.4% Opth*) 1 drop BOTH EYES Q2H PRN PRN Reason: DRY EYE Last Admin: 05/20/17 16:53 Dose: 1 drop Sodium Biphosphate/Sodium Phosphate (Fleet Enema*) 1 bottle CO DAILY PRN PRN Reason: CONSTIPATION Thiamine HCl (Vitamin B-1 Tab*) 100 mg PO DAILY [facility] Last Admin: 06/08/17 09:44 Dose: 100 mg Vital Signs - 8 hr 06/08/17 06/08/17 06/08/17 07:24 08:00 11:15 Temperature 98.4 F 98.2 F Pulse Rate 74 84 Respiratory 17 17 17 Rate Blood Pressure 125/68 109/55 (mmHg) O2 Sat by Pulse 97 100 Oximetry Oxygen Devices in Use Now: None Appearance: Elderly male lying in bed in [facility]. Eyes: No Scleral Icterus Ears/Nose/Mouth/Throat: Mucous Membranes Moist Neck: Trachea Midline Respiratory: Symmetrical Chest Expansion and Respiratory Effort, Clear to Auscultation Cardiovascular: RRR - Normal S1 and S2 Abdominal: NL Sounds; No Tenderness; No Distention Neurological: - - AAOx2 (self and place) Result Diagrams: 06/03/17 12:11 06/04/17 06:12 Assess/Plan/Problems-Billing Assessment: Mr. Bonilla is a 76 yo M with h/o HTN, ETOH abuse, multiple joint replacements, GI bleed (and partial colon resection due to bleed) was admitted 04/21 with fevers and back pain and was found to have a very large epidural abscess, R septic shoulder, L septic knee, right psoas abscess s/p drainage in the setting of MSSA bacteremia with stay complicated by ongoing delirium. 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 - Blood cultures have been negative since 05/09/17. - Continue Ancef/Rifampin #46/56. Plan to continue technician terminal and repeater cephalexin/ rifampin on discharge. (2) Encephalopathy Comment: - Likely multifactorial (infection, ETOH - Wernicke's). Seems to be improving based on my prior visits, but still far from baseline and unlikely to return to it given the extent of his infections and severity of his illness. - CT brain with/without contrast was negative. (3) HTN (hypertension) Comment: - Controlled. - Continue nebivolol 10mg daily and amlodipine 5mg daily. (4) Severe protein-calorie malnutrition Comment: - Ate 90% of his dinner last night but only 5% of breakfast today. - Off TPN since last week. (5) DVT prophylaxis Comment: - SQ heparin. (6) DNR (do not resuscitate) Status and Disposition: Inpatient for management of MSSA septicemia. Family met with Palliative care and not interested in Hospice at this time. Plan for SNF placement.
--- NOTE | 2017-06-08 14:43 | RAD ---
INDICATION: Septicemia, left ankle pain. TECHNIQUE: 3 views of the left ankle were obtained. FINDINGS: There are old healed fractures of the distal diaphyses of the tibia and fibula. There is mild to moderate diffuse soft tissue swelling. No periosteal reaction or erosive changes are seen. Joint spaces appear relatively maintained. 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 IMPRESSION: 1. SOFT TISSUE SWELLING, NO RADIOGRAPHIC EVIDENCE FOR OSTEOMYELITIS. IF THIS IS OF CONCERN CONSIDER MR IMAGING WITHOUT CONTRAST. 2. OLD HEALED FRACTURES OF THE DISTAL TIBIA AND FIBULA.
--- NOTE | 2017-06-08 15:32 | PN ---
Progress Note - Progress Note Date of Service: 06/08/17 SOAP: Subjective: CC: epidural abscess HPI: 76 year old man with Staphylococcal epidural abscess which was drained; left knee and right shoulder I&D. Denies pain, fever, or rash. Objective: Vital Signs Temp 36.8 C 06/08/17 11:15 Pulse 84 06/08/17 11:15 Resp 17 06/08/17 11:15 BP 109/55 06/08/17 11:15 Pulse Ox 100 06/08/17 11:15 Intake & Output 06/07/17 06/08/17 06/08/17 18:59 06:59 18:59 Intake Total 620 93 255 Balance 620 93 255 Intake: IV Fluids 20 30 NS (0.9%) 20 30 thiamine 0 IVPB 100 63 55 ABX - CEFAZOLIN 100 63 55 Oral 500 0 200 Other: Estimated Void Large Large Date of Last Bowel 06/08/17 Movement # Bowel Movements 0 1 Estimated Stool Amount Medium Medium # Voids 2 2 Gen:no distress Neuro: awake, Ox1 HEENT:PERRL, MMD Heart:RRR no murmur Lungs:clear to auscultation Abd:+ BS NTND soft Skin: no rash; spine incision intact MSK: right shoulder non tender; left knee decr AROM due to pain, mild warmth Assessment: 1. MSSA epidural abscess s/p I&D; psoas abscess s/p IR drain 2. 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 MSSA septic right shoulder s/p I&D x2 4. presence bilateral hip arthroplasties 5. encephalopathy 6. elevated CRP , increased most reecently Plan: 1. ancef/rifampin day followed by keflex 500 mg po tid and rifampin 600 mg daily indefinitely; weekly cbc, cmp, crp. CT spine at end of IV treatment. 35 minutes floor time >50% face to face in coordination of care given slow improvement and ongoing encephalopathy, family wishes for continued treatment of infection. Discussed with Dr Garcia
[2017-06-08 16:37] LABS: ABS Basophils 0.1 10^3/ul (0-0.2); ABS Eosinophils 0.4 10^3/ul (0-0.6); ABS Lymphocytes 0.9 10^3/ul (1.0-4.8); ABS Neutrophils 5.8 10^3/ul (1.5-7.7); ABS Nucleated RBC 0 10^3/ul; Eosinophil % 4.6 % (0-6); Hematocrit 25 % (42-52); Hemoglobin 8.4 g/dl (14.0-18.0); Lymphocyte % 10.9 % (25-47); Mean Corpuscular HGB Conc 33 g/dl (31-36); Mean Corpuscular Hemoglobin 28 pg (27-31); Mean Corpuscular Volume 86 fL (80-94); Mean Platelet Volume 6.4 um3 (7.4-10.4); Nucleated Red Blood Cells % 0; Platelet Count 437 10^3/ul (150-450); Red Blood Count 2.96 10^6/ul (4.0-5.4); Red Cell Distribution Width 16 % (10.5-15); White Blood Count 8.2 10^3/ul (3.5-10.8)
[2017-06-08] MEDS: Atorvastatin* 20 MG TAB PO SCH (16:55)
[2017-06-08] MEDS: Ondansetron INJ* 2 MG/ML VIAL IV PRN (20:58)
[2017-06-09] MEDS: ceFAZolin 2 GM PREMIX (*) 2 GM/50 ML BAG IVPB SCH ×3 (00:47→17:25)
[2017-06-09] MEDS: Nystatin TOP POWDER* 15 GM BTL TOPICAL SCH ×3 (06:11→22:00)
--- NOTE | 2017-06-09 09:03 | PN ---
Progress Note - Progress Note Date of Service: 06/09/17 SOAP: Subjective: CC: epidural abscess HPI: 76 year old man with Staphylococcal epidural abscess which was drained; left knee and right shoulder I&D. Has right ankle pain which he noticed in PT, worse with putting weight on it, doesn't bother him laying in bed; nothing helps so far. No fever, rash, or diarrhea. Objective: Vital Signs Temp 36.8 C 06/08/17 11:15 Pulse 84 06/08/17 11:15 Resp 17 06/08/17 11:15 BP 109/55 06/08/17 11:15 Pulse Ox 100 06/08/17 11:15 Intake & Output 06/07/17 06/08/17 06/08/17 18:59 06:59 18:59 Intake Total 620 93 255 Balance 620 93 255 Intake: IV Fluids 20 30 NS (0.9%) 20 30 thiamine 0 IVPB 100 63 55 ABX - CEFAZOLIN 100 63 55 Oral 500 0 200 Other: Estimated Void Large Large Date of Last Bowel 06/08/17 Movement # Bowel Movements 0 1 Estimated Stool Amount Medium Medium # Voids 2 2 Gen:no distress Neuro: awake, Ox1 HEENT:PERRL, MMD Heart:RRR no murmur Lungs:clear to auscultation Abd:+ BS NTND soft Skin: no rash; spine incision intact MSK: left ankle mild edema and warmth, pain with PROM Laboratory Results - last 24 hr 06/08/17 06/08/17 16:29 16:29 WBC 8.2 RBC 2.96 L Hgb 8.4 L Hct 25 L MCV 86 MCH 28 MCHC 33 RDW 16 H Plt Count 437 MPV 6.4 L Neut % (Auto) 71.4 Lymph % (Auto) 10.9 L [place] % (Auto) 12.3 H Eos % (Auto) 4.6 Baso % (Auto) 0.8 Absolute Neuts (auto) 5.8 Absolute Lymphs (auto) 0.9 L Absolute Monos (auto) 1.0 H Absolute Eos (auto) 0.4 Absolute Basos (auto) 0.1 Absolute Nucleated RBC 0 Nucleated RBC % 0 ESR 120 H C-Reactive Protein 72.23 H Assessment: 1. MSSA epidural abscess s/p I&D; psoas abscess s/p IR drain 2. 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 MSSA septic right shoulder s/p I&D x2 4. presence bilateral hip arthroplasties 5. encephalopathy 6. Left ankle pain with inflammation on exam ?pseudogout vs infection, less likely while on abx Plan: 1. ancef/rifampin day 47/56 followed by keflex 500 mg po tid and rifampin 600 mg daily indefinitely; weekly cbc, cmp, crp. CT spine at end of IV treatment. 2. ortho consult ?aspiration Discussed with Dr Garcia
[2017-06-09] MEDS: CMCS: Nebivolol TAB (NF) 2.5 MG TAB PO SCH (09:54)
[2017-06-09] MEDS: Allopurinol TAB* 100 MG PO SCH (09:54)
[2017-06-09] MEDS: amLODIPine TAB* 5 MG PO SCH (09:54)
[2017-06-09] MEDS: RiFAMPin CAP* 300 MG CAP PO SCH (09:54)
[2017-06-09] MEDS: Thiamine TAB* 100 MG TAB PO SCH (09:54)
[2017-06-09] MEDS: Polyethylene Glycol 3350* 17 GM PACKET PO SCH (09:55)
--- NOTE | 2017-06-09 12:31 | PN ---
Progress Note - Progress Note Date of Service: 06/09/17 SOAP: Subjective: Per Hospitalist, there was a meeting on 06/07/17 about palliative care or continued full treatment. Family preferred full treatment. There are dispo plans, although the patient must be continued on IV abx regiment per Dr. Franklin. Ortho was reconsulted last night regarding new onset left ankle pain with concerns of infection. Per patient's , nursing, and Hospitalist complaint of left ankle pain started yesterday. The pain may have limited him with PT yesterday. No fall. No high grade fevers or change in inflammatory markers. Patient has a history from 1970s of left tibia fibula shaft fractures, although the patient's denies any pre-existing left ankle pain. He has never complained of left ankle pain in this hospitalization for multiple sites of infection, although the patient is encephalopathic and a poor historian. My partner Dr. Gongora was called last night and made him NPO in case an I&D were to be required. Objective: NAD R shoulder- inc c/d/i, PROM unchanged with 90 FF, 10ER, 80IR L knee- inc c/d/i, PROM unchanged with 5-90 flexion L ankle- mild swelling about left tibiotalar joint. TTP about the tibiotalar joint. PROM/AROM 0-15 plantarflexion. Inconsistent pain with ROM- at times, he has no pain, at times he describes some discomfort in foot and ankle. R ankle- PROM/AROM 10 DF to 20 PF Selected Entries 06/08/17 06/09/17 06/09/17 23:34 03:45 08:25 Temperature 99.4 F 99.8 F 98.3 F Pulse Rate Respiratory Rate Blood Pressure (mmHg) O2 Sat by Pulse Oximetry 06/09/17 11:13 Temperature 98.4 F Pulse Rate 76 Respiratory 18 Rate Blood Pressure 149/49 (mmHg) O2 Sat by Pulse 99 Oximetry Laboratory Tests 06/03/17 06/08/17 06/08/17 12:11 16:29 16:29 WBC 8.2 Neut % (Auto) 71.4 ESR 120 H C-Reactive Protein 78.72 H 72.23 H Assessment: s/p 2 x R shoulder, L TKA I&Ds by ca s/p I&D epidural abscess, psoas abscess L ankle pain Plan: - Continue IV abx per ID - Aspiration L ankle to eval for infection, gout, pseudogout, synovitis - Dispo planning per Hospitalist/family - PT as tolerated
--- NOTE | 2017-06-09 13:19 | PN ---
Subjective Date of Service: 06/09/17 Interval History: HOSPITALIST PROGRESS NOTE Patient seen and examined at bedside. Care reviewed and d/w his RN Veronika Copeland. He c/o left ankle pain yesterday while working with PT. Denies it today. Mental status is unchanged - much more awake than the week before, but still confused, asking for a beer today. Family History: Unchanged from Admission Social History: Unchanged from Admission Past Medical History: Unchanged from Admission Objective Active Medications: Acetaminophen (Tylenol Tab*) 650 mg PO Q4H PRN PRN Reason: FEVER Last Admin: 06/06/17 22:20 Dose: 650 mg Allopurinol (Zyloprim Tab*) 100 mg PO QAM [facility] Last Admin: 06/09/17 09:54 Dose: 100 mg Amlodipine Besylate (Norvasc Tab*) 5 mg PO DAILY [facility] Last Admin: 06/09/17 09:54 Dose: 5 mg Atorvastatin Calcium (Lipitor*) 20 mg PO 1700 [facility] Last Admin: 06/08/17 16:55 Dose: 20 mg Bisacodyl (Dulcolax Supp*) 10 mg [place] DAILY PRN PRN Reason: CONSTIPATION Last Admin: 05/19/17 11:07 Dose: 10 mg Docusate Sodium (Colace Cap*) 100 mg PO DAILY PRN PRN Reason: CONSTIPATION Last Admin: 05/18/17 16:48 Dose: 100 mg Haloperidol Lactate (Haldol Inj Iv/Im*) 5 mg IV SLOW PU Q6H PRN PRN Reason: AGITATION Last Admin: 05/25/17 22:20 Dose: 5 mg Heparin Sodium (Porcine) (Heparin Flush Picc/Ml/Cvc(*)) 1 - 3 ml FLUSH 0600, 1800 [facility] PRN Reason: Protocol Last Admin: 06/09/17 06:12 Dose: 2 ml Hydralazine HCl (Apresoline Iv*) 10 mg IV Q4H PRN PRN Reason: Systolic >170 Last Admin: 06/01/17 20:55 Dose: 10 mg Cefazolin Sodium/Dextrose (Kefzol 2 Gm Premix(*)) 2 gm in 50 mls @ 100 mls/hr IVPB 0100,0900,1700 [facility] Last Admin: 06/09/17 09:54 Dose: 100 mls/hr Magnesium Hydroxide (Milk Of Magnesia Liq*) 30 ml PO Q4H PRN PRN Reason: CONSTIPATION Last Admin: 05/19/17 11:05 Dose: 30 ml Nebivolol (Bystolic Tab (Nf)) 10 mg PO QAM [facility] Last Admin: 06/09/17 09:54 Dose: 10 mg Nystatin (Nystatin Top Powder*) 1 applic TOPICAL BID [facility] Last Admin: 06/09/17 09:55 Dose: 1 applic Ondansetron HCl (Zofran Inj*) 4 mg IV Q6H PRN PRN Reason: NAUSEA/VOMITING Last Admin: 06/08/17 20:58 Dose: 4 mg Polyethylene Glycol/Electrolytes (Miralax*) 17 gm PO DAILY [facility] Last Admin: 06/09/17 09:55 Dose: 17 gm Polyvinyl Alcohol (Polyvinyl Alcohol 1.4% Opth*) 1 drop BOTH EYES Q2H PRN PRN Reason: DRY EYE Last Admin: 05/20/17 16:53 Dose: 1 drop Rifampin (Rifampin Cap*) 600 mg PO DAILY [facility] Last Admin: 06/09/17 09:54 Dose: 600 mg Sodium Biphosphate/Sodium Phosphate (Fleet Enema*) 1 bottle [place] DAILY PRN PRN Reason: CONSTIPATION Thiamine HCl (Vitamin B-1 Tab*) 100 mg PO DAILY [facility] Last Admin: 06/09/17 09:54 Dose: 100 mg Vital Signs - 8 hr 06/09/17 06/09/17 08:25 11:13 Temperature 98.3 F 98.4 F Pulse Rate 80 76 Respiratory 18 18 Rate Blood Pressure 151/38 149/49 (mmHg) O2 Sat by Pulse 96 99 Oximetry Oxygen Devices in Use Now: None Appearance: Elderly gentleman lying in bed in [facility]. Eyes: No Scleral Icterus Ears/Nose/Mouth/Throat: Mucous Membranes Moist Neck: Trachea Midline Respiratory: Symmetrical Chest Expansion and Respiratory Effort, Clear to Auscultation Cardiovascular: RRR - Normal S1 and S2 Abdominal: NL Sounds; No Tenderness; No Distention Extremities: - - left ankle with mild edema and warmth, patient c/o pain with ROM Neurological: - - Alert and awake, oriented to self only, moves all 4 extremities Result Diagrams: 06/08/17 16:29 06/04/17 06:12 Assess/Plan/Problems-Billing Assessment: Mr. Bonilla is a 76 yo M with h/o HTN, ETOH abuse, multiple joint replacements, GI bleed (and partial colon resection due to bleed) was admitted 04/21 with fevers and back pain and was found to have a very large epidural abscess, R septic shoulder, L septic knee, right psoas abscess s/p drainage in the setting of MSSA bacteremia with stay complicated by ongoing delirium. 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 - Blood cultures have been negative since 05/09/17. - Continue Ancef/Rifampin #47/56. Plan to continue long-term cephalexin/ rifampin on discharge. (2) Encephalopathy Comment: - Likely multifactorial (infection, ETOH - Wernicke's). Seems to be improving based on my prior visits, but still far from baseline and unlikely to return to it given the extent of his infections and severity of his illness. - CT brain with/without contrast was negative. (3) HTN (hypertension) Comment: - Controlled. - Continue nebivolol 10mg daily and amlodipine 5mg daily. (4) Severe protein-calorie malnutrition Comment: - PO intake fluctuates, but still poor - 5% breakfast, 25% lunch, and 50% dinner yesterday. - Off TPN since last week. (5) Arthritis of ankle, left Comment: - Xray reviewed - suspect inflammatory arthritis (i.e. gout, pseudogout ) but with his h/o infection, will await Ortho input. (6) DVT prophylaxis Comment: - SQ heparin. (7) DNR (do not resuscitate) Status and Disposition: Inpatient for management of MSSA septicemia. Family met with Palliative care and not interested in Hospice at this time. Plan for SNF placement. I called his Sameera Bonilla and gave her an update about his situation. She' s aware of his left ankle pain and w/u in progress. She thinks he looks better than before and "he eats his whole meal when I'm around". When I asked about his alcohol intake, since he had asked me for a beer she laughed and told me "not to worry about it". When asked about how much he used to drink before, she told me around 4 beers/day, but never had withdrawal.
[2017-06-09 14:52] LABS: ABS Basophils 0 10^3/ul (0-0.2); ABS Eosinophils 0.2 10^3/ul (0-0.6); ABS Lymphocytes 0.8 10^3/ul (1.0-4.8); ABS Neutrophils 5.4 10^3/ul (1.5-7.7); ABS Nucleated RBC 0 10^3/ul; Eosinophil % 2.7 % (0-6); Hematocrit 24 % (42-52); Hemoglobin 7.9 g/dl (14.0-18.0); Lymphocyte % 10.8 % (25-47); Mean Corpuscular HGB Conc 33 g/dl (31-36); Mean Corpuscular Hemoglobin 28 pg (27-31); Mean Corpuscular Volume 85 fL (80-94); Mean Platelet Volume 6.6 um3 (7.4-10.4); Nucleated Red Blood Cells % 0.1; Platelet Count 379 10^3/ul (150-450); Red Blood Count 2.82 10^6/ul (4.0-5.4); Red Cell Distribution Width 16 % (10.5-15); White Blood Count 7.5 10^3/ul (3.5-10.8)
[2017-06-09 15:00] LABS: INR 1.29 (0.77-1.02)
[2017-06-09] MEDS: Heparin VIAL(*) 5000 UNITS/ML VIAL (FIVE THOUSAND) SUBCUT SCH ×2 (15:18→22:54)
[2017-06-09] MEDS: Atorvastatin* 20 MG TAB PO SCH (17:25)
[2017-06-09] MEDS: Acetaminophen TAB* 325 MG PO PRN (17:25)
[2017-06-09] MEDS ORDERED: NS 0.9% 500 ML* 500 ML IV ONE (18:15)
[2017-06-09] MEDS ORDERED: NS 0.9% 1000 ML* 1,000 ML IV SCH (18:15)
--- NOTE | 2017-06-09 20:27 | PN ---
Progress Note - Progress Note Date of Service: 06/09/17 SOAP: Subjective: Follow up note status post return of left ankle aspirate labs return. Objective: Assessment: [] Plan: []
--- NOTE | 2017-06-09 20:31 | PN ---
Progress Note - Progress Note Date of Service: 06/09/17 SOAP: Subjective: Follow up note after return of labs on left ankle aspirate. Objective: Microbiology 06/09/17 12:57 Joint Fluid(Synovial) - Ankle Left Gram Stain - Final 06/09/17 12:57 Joint Fluid(Synovial) - Ankle Left Skin and Soft Tissue MRSA/ MSSA (PCR - Final Mrsa Negative S.aureus Negative Laboratory Tests 06/09/17 06/09/17 12:56 12:57 Fluid Source Synovial fluid Fluid Volume 0.1 Fluid Color Red Fluid Appearance Bloody Fluid WBC 123 Fluid RBC [id number] Fluid Tot Cell Count 100 Fluid Neutrophils 60 Fluid Lymphocytes 27 Fluid Monocytes 13 Fluid Crystals None seen Selected Entries 06/09/17 06/09/17 11:13 16:10 Temperature 98.4 F 99.7 F Assessment: 1. s/p I&Ds epidural abscess, psoas abscess, R shoulder (x2), L knee TKA (x2) 2. Encephalopathy 3. L ankle pain, likely synovitis, mild arthritis Plan: - No sign of infection or gout/pseudogout by aspirate. Yellow joint fluid was obtained in aspirate so it should be accurate - Pre-aspirate, my index of suspicion for infection was low because, at times the patient tolerated AROM/PROM without pain and the patient has been on IV abx for a month and has never complained of L ankle pain. - Patient still has painful, slightly swollen ankle. I assume some synovitis or mild arthritis. Patient may not be representing well if the ankle is or is not hurting secondary to his encephalopathy. - Patient should be WBAT BLE, working with PT. - If his ankle were to develop significantly more swelling, or become much more painful, I might consider MRI imaging or an I&D. I see this as very unlikely.
[2017-06-10] MEDS: ceFAZolin 2 GM PREMIX (*) 2 GM/50 ML BAG IVPB SCH ×4 (00:31→23:29)
[2017-06-10] MEDS: Heparin VIAL(*) 5000 UNITS/ML VIAL (FIVE THOUSAND) SUBCUT SCH ×3 (05:41→23:29)
[2017-06-10 06:06] LABS: ABS Basophils 0 10^3/ul (0-0.2); ABS Eosinophils 0.3 10^3/ul (0-0.6); ABS Lymphocytes 0.9 10^3/ul (1.0-4.8); ABS Monocytes 0.8 10^3/ul (0-0.8); ABS Neutrophils 3.5 10^3/ul (1.5-7.7); ABS Nucleated RBC 0 10^3/ul; Eosinophil % 5.4 % (0-6); Hematocrit 22 % (42-52); Hemoglobin 7.3 g/dl (14.0-18.0); Lymphocyte % 15.7 % (25-47); Mean Corpuscular HGB Conc 34 g/dl (31-36); Mean Corpuscular Hemoglobin 29 pg (27-31); Mean Corpuscular Volume 85 fL (80-94); Mean Platelet Volume 6.7 um3 (7.4-10.4); Nucleated Red Blood Cells % 0.1; Platelet Count 334 10^3/ul (150-450); Red Blood Count 2.55 10^6/ul (4.0-5.4); Red Cell Distribution Width 16 % (10.5-15); White Blood Count 5.5 10^3/ul (3.5-10.8)
[2017-06-10 06:24] LABS: EGFR Non-African American 142.6 (>60)
[2017-06-10] MEDS ORDERED: Gadoteridol* (CONTRAST) 279.3 MG/ML 10 ML IV ONE ×2 (08:43→16:06)
--- NOTE | 2017-06-10 08:53 | PN ---
Subjective Date of Service: 06/10/17 Interval History: HOSPITALIST PROGRESS NOTE Patient seen and examined at bedside. Care d/w Trina Wyatt RN. He is more confused today, oriented to self only. Denies pain or other complaints. Asked for a beer again. Family History: Unchanged from Admission Social History: Unchanged from Admission Past Medical History: Unchanged from Admission Objective Active Medications: Acetaminophen (Tylenol Tab*) 650 mg PO Q4H PRN PRN Reason: FEVER Last Admin: 06/09/17 17:25 Dose: 650 mg Allopurinol (Zyloprim Tab*) 100 mg PO QAM [facility] Last Admin: 06/09/17 09:54 Dose: 100 mg Amlodipine Besylate (Norvasc Tab*) 5 mg PO DAILY [facility] Last Admin: 06/09/17 09:54 Dose: 5 mg Atorvastatin Calcium (Lipitor*) 20 mg PO 1700 [facility] Last Admin: 06/09/17 17:25 Dose: 20 mg Bisacodyl (Dulcolax Supp*) 10 mg [place] DAILY PRN PRN Reason: CONSTIPATION Last Admin: 05/19/17 11:07 Dose: 10 mg Docusate Sodium (Colace Cap*) 100 mg PO DAILY PRN PRN Reason: CONSTIPATION Last Admin: 05/18/17 16:48 Dose: 100 mg Gadoteridol (Prohance* (Contrast)) 10 ml IV ONCE ONE Stop: 06/10/17 08:44 Haloperidol Lactate (Haldol Inj Iv/Im*) 5 mg IV SLOW PU Q6H PRN PRN Reason: AGITATION Last Admin: 05/25/17 22:20 Dose: 5 mg Heparin Sodium (Porcine) (Heparin Flush Picc/Ml/Cvc(*)) 1 - 3 ml FLUSH 0600, 1800 [facility] PRN Reason: Protocol Last Admin: 06/10/17 05:41 Dose: 2 ml Heparin Sodium (Porcine) (Heparin Vial(*)) 5,000 units SUBCUT Q8HR [facility] Last Admin: 06/10/17 05:41 Dose: 5,000 units Hydralazine HCl (Apresoline Iv*) 10 mg IV Q4H PRN PRN Reason: Systolic >170 Last Admin: 06/01/17 20:55 Dose: 10 mg Cefazolin Sodium/Dextrose (Kefzol 2 Gm Premix(*)) 2 gm in 50 mls @ 100 mls/hr IVPB 0100,0900,1700 [facility] Last Admin: 06/10/17 00:31 Dose: 100 mls/hr Magnesium Hydroxide (Milk Of Magnesia Liq*) 30 ml PO Q4H PRN PRN Reason: CONSTIPATION Last Admin: 05/19/17 11:05 Dose: 30 ml Nebivolol (Bystolic Tab (Nf)) 10 mg PO QAM [facility] Last Admin: 06/09/17 09:54 Dose: 10 mg Nystatin (Nystatin Top Powder*) 1 applic TOPICAL BID [facility] Last Admin: 06/09/17 22:00 Dose: 1 applic Ondansetron HCl (Zofran Inj*) 4 mg IV Q6H PRN PRN Reason: NAUSEA/VOMITING Last Admin: 06/08/17 20:58 Dose: 4 mg Polyethylene Glycol/Electrolytes (Miralax*) 17 gm PO DAILY [facility] Last Admin: 06/09/17 09:55 Dose: 17 gm Polyvinyl Alcohol (Polyvinyl Alcohol 1.4% Opth*) 1 drop BOTH EYES Q2H PRN PRN Reason: DRY EYE Last Admin: 05/20/17 16:53 Dose: 1 drop Rifampin (Rifampin Cap*) 600 mg PO DAILY [facility] Last Admin: 06/09/17 09:54 Dose: 600 mg Sodium Biphosphate/Sodium Phosphate (Fleet Enema*) 1 bottle [place] DAILY PRN PRN Reason: CONSTIPATION Thiamine HCl (Vitamin B-1 Tab*) 100 mg PO DAILY [facility] Last Admin: 06/09/17 09:54 Dose: 100 mg Vital Signs - 8 hr 06/10/17 06/10/17 03:01 08:36 Temperature 98.0 F 98.1 F Pulse Rate 73 80 Respiratory 16 14 Rate Blood Pressure 111/64 128/60 (mmHg) O2 Sat by Pulse 99 97 Oximetry Oxygen Devices in Use Now: None Appearance: Elderly male lying in bed in [facility]. Eyes: No Scleral Icterus Ears/Nose/Mouth/Throat: Mucous Membranes Moist Neck: Trachea Midline Respiratory: Symmetrical Chest Expansion and Respiratory Effort, Clear to Auscultation Cardiovascular: RRR - Normal S1 and S2 Abdominal: NL Sounds; No Tenderness; No Distention Extremities: - - Mild left ankle edema and warmth, no erythema Neurological: - - Alert and awake, oriented to self only Result Diagrams: 06/10/17 05:50 06/10/17 05:50 Assess/Plan/Problems-Billing Assessment: Mr. Bonilla is a 76 yo M with h/o HTN, ETOH abuse, multiple joint replacements, GI bleed (and partial colon resection due to bleed) was admitted 04/21 with fevers and back pain and was found to have a very large epidural abscess, R septic shoulder, L septic knee, right psoas abscess s/p drainage in the setting of MSSA bacteremia with stay complicated by ongoing delirium. 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 - Blood cultures have been negative since 05/09/17. - Continue Ancef/Rifampin #48/56. Plan to continue [facility] cephalexin/ rifampin on discharge. (2) Encephalopathy Comment: - Likely multifactorial (infection, ETOH - Wernicke's). Seems to be improving based on my prior visits, but still far from baseline and unlikely to return to it given the extent of his infections and severity of his illness. - CT brain with/without contrast was negative but he seems more confused today - will order MRI brain with and without contrast. I called his multiple times to obtain consent but she did not last picker. Will continue to try. (3) HTN (hypertension) Comment: - Controlled. - Continue nebivolol 10mg daily and amlodipine 5mg daily. (4) Severe protein-calorie malnutrition Comment: - PO intake fluctuates, but still poor - 60% dinner yesterday. (5) Arthritis of ankle, left Comment: - Ortho input appreciated - fluid showed 123 WBCs, no crystals, culture shows no growth so far. D/w Dr. Galan - recommended monitoring that joint. If he has worsening of edema, warmth, develops erythema, would pursue MRI of the ankle and probable wash out. (6) DVT prophylaxis Comment: - SQ heparin. (7) DNR (do not resuscitate) Status and Disposition: Inpatient for management of MSSA septicemia. Family met with Palliative care and not interested in Hospice at this time. Plan for SNF placement.
[2017-06-10] MEDS: CMCS: Nebivolol TAB (NF) 2.5 MG TAB PO SCH (09:41)
[2017-06-10] MEDS: Thiamine TAB* 100 MG TAB PO SCH (09:41)
[2017-06-10] MEDS: RiFAMPin CAP* 300 MG CAP PO SCH (09:42)
[2017-06-10] MEDS: Allopurinol TAB* 100 MG PO SCH (09:43)
[2017-06-10] MEDS: amLODIPine TAB* 5 MG PO SCH (09:43)
[2017-06-10] MEDS: Nystatin TOP POWDER* 15 GM BTL TOPICAL SCH ×2 (09:44→23:29)
[2017-06-10] MEDS: Polyethylene Glycol 3350* 17 GM PACKET PO SCH (09:45)
--- NOTE | 2017-06-10 16:52 | RAD ---
INDICATION: Septicemia, encephalopathy worsening confusion. COMPARISON: Comparison is made with a prior CT of the brain from May 29, 2017. TECHNIQUE: Sagittal T1, axial T1, T2, susceptibility, FLAIR and diffusion-weighted images were obtained. In addition, axial, sagittal and coronal T1-weighted images were obtained following intravenous injection of 15 ml of ProHance contrast. FINDINGS: The ventricles, cisterns and sulci are prominent consistent with diffuse atrophy. There are small focal areas of increased signal intensity in T2-weighted images present within the subcortical and periventricular white matter most consistent with mild chronic small vessel ischemic changes. No other focal abnormality or mass effect is present. No abnormal area of enhancement is seen. No areas of restricted diffusion are present. There is no evidence for infarct or hemorrhage. The visualized portion of the paranasal sinuses and mastoid air cells appear clear. IMPRESSION: 1. NO EVIDENCE FOR ACUTE FINDING. 2. ATROPHY AND FINDINGS CONSISTENT WITH MILD CHRONIC SMALL VESSEL ISCHEMIC CHANGES.
[2017-06-10] MEDS: Acetaminophen TAB* 325 MG PO PRN ×2 (17:22→23:35)
[2017-06-10] MEDS: Atorvastatin* 20 MG TAB PO SCH (17:22)
[2017-06-11] MEDS: Heparin VIAL(*) 5000 UNITS/ML VIAL (FIVE THOUSAND) SUBCUT SCH ×2 (05:36→14:54)
--- NOTE | 2017-06-11 09:40 | PN ---
Subjective Date of Service: 06/11/17 Interval History: HOSPITALIST PROGRESS NOTE Patient seen and examined at bedside. He's less confused today, good mood, smiling. Denies pain. Family History: Unchanged from Admission Social History: Unchanged from Admission Past Medical History: Unchanged from Admission Objective Active Medications: Acetaminophen (Tylenol Tab*) 650 mg PO Q4H PRN PRN Reason: FEVER Last Admin: 06/10/17 23:35 Dose: 650 mg Allopurinol (Zyloprim Tab*) 100 mg PO QAM [facility] Last Admin: 06/10/17 09:43 Dose: 100 mg Amlodipine Besylate (Norvasc Tab*) 5 mg PO DAILY [facility] Last Admin: 06/10/17 09:43 Dose: 5 mg Atorvastatin Calcium (Lipitor*) 20 mg PO 1700 [facility] Last Admin: 06/10/17 17:22 Dose: 20 mg Bisacodyl (Dulcolax Supp*) 10 mg [place] DAILY PRN PRN Reason: CONSTIPATION Last Admin: 05/19/17 11:07 Dose: 10 mg Docusate Sodium (Colace Cap*) 100 mg PO DAILY PRN PRN Reason: CONSTIPATION Last Admin: 05/18/17 16:48 Dose: 100 mg Haloperidol Lactate (Haldol Inj Iv/Im*) 5 mg IV SLOW PU Q6H PRN PRN Reason: AGITATION Last Admin: 05/25/17 22:20 Dose: 5 mg Heparin Sodium (Porcine) (Heparin Flush Picc/Ml/Cvc(*)) 1 - 3 ml FLUSH 0600, 1800 [facility] PRN Reason: Protocol Last Admin: 06/11/17 05:36 Dose: 2 ml Heparin Sodium (Porcine) (Heparin Vial(*)) 5,000 units SUBCUT Q8HR [facility] Last Admin: 06/11/17 05:36 Dose: 5,000 units Hydralazine HCl (Apresoline Iv*) 10 mg IV Q4H PRN PRN Reason: Systolic >170 Last Admin: 06/01/17 20:55 Dose: 10 mg Cefazolin Sodium/Dextrose (Kefzol 2 Gm Premix(*)) 2 gm in 50 mls @ 100 mls/hr IVPB 0100,0900,1700 [facility] Last Admin: 06/10/17 23:29 Dose: 100 mls/hr Magnesium Hydroxide (Milk Of Magnesia Liq*) 30 ml PO Q4H PRN PRN Reason: CONSTIPATION Last Admin: 05/19/17 11:05 Dose: 30 ml Nebivolol (Bystolic Tab (Nf)) 10 mg PO QAM [facility] Last Admin: 06/10/17 09:41 Dose: 10 mg Nystatin (Nystatin Top Powder*) 1 applic TOPICAL BID [facility] Last Admin: 06/10/17 23:29 Dose: 1 applic Ondansetron HCl (Zofran Inj*) 4 mg IV Q6H PRN PRN Reason: NAUSEA/VOMITING Last Admin: 06/08/17 20:58 Dose: 4 mg Polyethylene Glycol/Electrolytes (Miralax*) 17 gm PO DAILY [facility] Last Admin: 06/10/17 09:45 Dose: 17 gm Polyvinyl Alcohol (Polyvinyl Alcohol 1.4% Opth*) 1 drop BOTH EYES Q2H PRN PRN Reason: DRY EYE Last Admin: 05/20/17 16:53 Dose: 1 drop Rifampin (Rifampin Cap*) 600 mg PO DAILY [facility] Last Admin: 06/10/17 09:42 Dose: 600 mg Sodium Biphosphate/Sodium Phosphate (Fleet Enema*) 1 bottle [place] DAILY PRN PRN Reason: CONSTIPATION Thiamine HCl (Vitamin B-1 Tab*) 100 mg PO DAILY [facility] Last Admin: 06/10/17 09:41 Dose: 100 mg Vital Signs - 8 hr 06/11/17 03:09 Temperature 98.4 F Pulse Rate 72 Respiratory 16 Rate Blood Pressure 122/58 (mmHg) O2 Sat by Pulse 97 Oximetry Oxygen Devices in Use Now: None Appearance: Pleasantly confused gentleman sitting up in a recliner in [facility]. Eyes: No Scleral Icterus Ears/Nose/Mouth/Throat: Mucous Membranes Moist Neck: Trachea Midline Respiratory: Symmetrical Chest Expansion and Respiratory Effort, Clear to Auscultation Cardiovascular: RRR - Normal S1 and S2 Skin: - - Spine incision is clean and dry, no erythema. Neurological: - - AAOx2 (self and place) Result Diagrams: 06/10/17 05:50 06/10/17 05:50 Assess/Plan/Problems-Billing Assessment: Mr. Bonilla is a 76 yo M with h/o HTN, ETOH abuse, multiple joint replacements, GI bleed (and partial colon resection due to bleed) was admitted 04/21 with fevers and back pain and was found to have a very large epidural abscess, R septic shoulder, L septic knee, right psoas abscess s/p drainage in the setting of MSSA bacteremia with stay complicated by ongoing delirium. 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 - Blood cultures have been negative since 05/09/17. - Continue Ancef/Rifampin #49/56 and then transition to exterminator helper cephalexin/ rifampin. Patient will continue IV antibiotics at SNF. (2) Encephalopathy Comment: - Likely multifactorial (infection, ETOH - Wernicke's). Seems to be improving based on my prior visits, but still far from baseline and unlikely to return to it given the extent of his infections and severity of his illness. - CT brain with/without contrast was negative but he seems more confused today - MRI brain with and without contrast showed no evidence for acute finding. (3) HTN (hypertension) Comment: - Controlled. - Continue nebivolol 10mg daily and amlodipine 5mg daily. (4) Severe protein-calorie malnutrition Comment: - PO intake fluctuates, but still poor - 100% dinner yesterday, 60% breakfast today. (5) Arthritis of ankle, left Comment: - Ortho input appreciated - fluid showed 123 WBCs, no crystals, culture shows no growth so far. D/w Dr. Galan - recommended monitoring that joint. If he has worsening of edema, warmth, develops erythema, would pursue MRI of the ankle and probable wash out. (6) DVT prophylaxis Comment: - SQ heparin. (7) DNR (do not resuscitate) Status and Disposition: Inpatient for management of MSSA septicemia. Family met with Palliative care and not interested in Hospice at this time. Patient is medically stable for discharge - plan to d/c to [facility] in AM.
[2017-06-11] MEDS: Thiamine TAB* 100 MG TAB PO SCH (10:28)
[2017-06-11] MEDS: CMCS: Nebivolol TAB (NF) 2.5 MG TAB PO SCH (10:28)
[2017-06-11] MEDS: amLODIPine TAB* 5 MG PO SCH (10:28)
[2017-06-11] MEDS: ceFAZolin 2 GM PREMIX (*) 2 GM/50 ML BAG IVPB SCH ×2 (10:28→15:49)
[2017-06-11] MEDS: RiFAMPin CAP* 300 MG CAP PO SCH (10:28)
[2017-06-11] MEDS: Nystatin TOP POWDER* 15 GM BTL TOPICAL SCH (10:29)
[2017-06-11] MEDS: Polyethylene Glycol 3350* 17 GM PACKET PO SCH (10:29)
[2017-06-11] MEDS: Allopurinol TAB* 100 MG PO SCH (10:29)
--- NOTE | 2017-06-11 14:21 | PN ---
Progress Note - Progress Note Date of Service: 06/11/17 SOAP: Subjective: 76 year old male with h/o multiple staph infections. Patient continues to be pleasant but confused. No change from prior exams, c/o pain "all over". Objective: General- -Well appearing, NAD resting in chair comfortably MSK- incisions on R shoulder, L knee examined, c/i/d. Patient eating lunch during examination. Dressing over L ankle aspirate c/d/i. ROM of b/l ankles equal. NO apparent pain with movements Vital Signs Temp 98.0 F 06/11/17 11:39 Pulse 87 06/11/17 11:39 Resp 18 06/11/17 11:39 BP 137/73 06/11/17 11:39 Pulse Ox 99 06/11/17 11:39 Intake & Output 06/10/17 06/11/17 06/11/17 18:59 06:59 18:59 Intake Total 2369 75 760 Balance 2369 75 760 Weight 52.163 kg Intake: IV Fluids 1289 10 NS (0.9%) 1289 10 IVPB 65 ABX - CEFAZOLIN 65 Oral 1080 0 760 Other: Estimated Void Large Large # Bowel Movements 2 2 1 Estimated Stool Amount Medium Medium Small # Voids 3 2 Assessment: 76 y/o male s/p multiple washouts R knee, L shoulder, last 05/22, ankle aspirate 06/09 Plan: - L ankle aspirate negative - Continue current care - Hospice/ palliative care Acetaminophen (Tylenol Tab*) 650 mg PO Q4H PRN PRN Reason: FEVER Last Admin: 06/10/17 23:35 Dose: 650 mg Allopurinol (Zyloprim Tab*) 100 mg PO QAM [facility] Last Admin: 06/11/17 10:29 Dose: 100 mg Amlodipine Besylate (Norvasc Tab*) 5 mg PO DAILY [facility] Last Admin: 06/11/17 10:28 Dose: 5 mg Atorvastatin Calcium (Lipitor*) 20 mg PO 1700 [facility] Last Admin: 06/10/17 17:22 Dose: 20 mg Bisacodyl (Dulcolax Supp*) 10 mg [place] DAILY PRN PRN Reason: CONSTIPATION Last Admin: 05/19/17 11:07 Dose: 10 mg Docusate Sodium (Colace Cap*) 100 mg PO DAILY PRN PRN Reason: CONSTIPATION Last Admin: 05/18/17 16:48 Dose: 100 mg Haloperidol Lactate (Haldol Inj Iv/Im*) 5 mg IV SLOW PU Q6H PRN PRN Reason: AGITATION Last Admin: 05/25/17 22:20 Dose: 5 mg Heparin Sodium (Porcine) (Heparin Flush Picc/Ml/Cvc(*)) 1 - 3 ml FLUSH 0600, 1800 [facility] PRN Reason: Protocol Last Admin: 06/11/17 05:36 Dose: 2 ml Heparin Sodium (Porcine) (Heparin Vial(*)) 5,000 units SUBCUT Q8HR [facility] Last Admin: 06/11/17 05:36 Dose: 5,000 units Hydralazine HCl (Apresoline Iv*) 10 mg IV Q4H PRN PRN Reason: Systolic >170 Last Admin: 06/01/17 20:55 Dose: 10 mg Cefazolin Sodium/Dextrose (Kefzol 2 Gm Premix(*)) 2 gm in 50 mls @ 100 mls/hr IVPB 0100,0900,1700 [facility] Last Admin: 06/11/17 10:28 Dose: 100 mls/hr Magnesium Hydroxide (Milk Of Magnesia Liq*) 30 ml PO Q4H PRN PRN Reason: CONSTIPATION Last Admin: 05/19/17 11:05 Dose: 30 ml Nebivolol (Bystolic Tab (Nf)) 10 mg PO QAM [facility] Last Admin: 06/11/17 10:28 Dose: 10 mg Nystatin (Nystatin Top Powder*) 1 applic TOPICAL BID [facility] Last Admin: 06/11/17 10:29 Dose: 1 applic Ondansetron HCl (Zofran Inj*) 4 mg IV Q6H PRN PRN Reason: NAUSEA/VOMITING Last Admin: 06/08/17 20:58 Dose: 4 mg Polyethylene Glycol/Electrolytes (Miralax*) 17 gm PO DAILY [facility] Last Admin: 06/11/17 10:29 Dose: 17 gm Polyvinyl Alcohol (Polyvinyl Alcohol 1.4% Opth*) 1 drop BOTH EYES Q2H PRN PRN Reason: DRY EYE Last Admin: 05/20/17 16:53 Dose: 1 drop Rifampin (Rifampin Cap*) 600 mg PO DAILY [facility] Last Admin: 06/11/17 10:28 Dose: 600 mg Sodium Biphosphate/Sodium Phosphate (Fleet Enema*) 1 bottle [place] DAILY PRN PRN Reason: CONSTIPATION Thiamine HCl (Vitamin B-1 Tab*) 100 mg PO DAILY [facility] Last Admin: 06/11/17 10:28 Dose: 100 mg
--- NOTE | 2017-06-11 14:57 | PN ---
Progress Note - Progress Note Date of Service: 06/11/17 SOAP: Subjective: [Patient is s/p multilevel laminectomy for holospinal epidural abscess on . No new complaints. Complains of back soreness. Denies headache, fever, chills, and back pain. ] Objective: [ Vital Signs: Temp Pulse Resp BP Pulse Ox 98.0 F 87 18 137/73 99 06/11/17 11:39 06/11/17 11:39 06/11/17 11:39 06/11/17 11:39 06/11/17 11:39 General: Alert to self, disoriented to place and time. Sitting up in chair comfortably. No distress. Neuro: Follows simple commands although refuses some. Speech is clear. Moves extremities spontaneously. Sensation intact. Incision: Surgical wound to the spine is healing well. Minimal erythema. No swelling, tenderness, drainage or warmth. Suture remains in place. ] Assessment: [Patient is recovering slowly s/p multilevel laminectomies. Case discussed with Dr. Melendrez.] Plan: [1. Cleared neurosurgically for discharge to rehab facility. 2. Follow up in office with Dr. Melendrez in 2 weeks. ]
[2017-06-11] MEDS: Atorvastatin* 20 MG TAB PO SCH (15:58)
[2017-06-11] MEDS: Acetaminophen TAB* 325 MG PO PRN (15:58)
[2017-06-11 16:31] VITALS: BP 137/71
--- NOTE | 2017-06-12 01:07 | DS ---
CC: Dr. Rao, [facility], Dr. Franklin, Dr. Galan; Dr. Melendrez* DISCHARGE SUMMARY: DATE OF ADMISSION: 04/21/17 DATE OF DISCHARGE: 06/11/17 PRIMARY CARE PROVIDER: Dr. Rao. INFECTIOUS DISEASE SPECIALIST: Dr. Franklin. ORTHOPEDIST: Dr. Galan. NEUROSURGEON: Dr. Melendrez. HOSPITAL COURSE: Mr. Bonilla is a 76-year-old male with past medical history of hypertension, GI bleed, gout, multiple joint replacements who presented to the emergency room with complaints of lower back pain that had started a week and a half prior to admission. On 04/18/17, the patient had been seen in the emergency room, noted to have sciatica and he was prescribed Medrol Dosepak, Percocet, and Valium. He was found to have leukocytosis of 24,000, CRP of 112. The patient had an MRI done on 04/16/17 that showed degenerative disk disease and severe spinal canal narrowing at the L3-L4 level, also at the L4-L5 level. In the emergency room, he was found to be septic with fever of 101 degrees and he was admitted with a diagnosis of sepsis with back pain to rule out an epidural abscess. He was found to be confused. His initial laboratory tests showed a WBC of 33,000 with 92% neutrophils with transaminitis with total bilirubin of 3.4, AST of 63, ALT of 190. CRP was 166. Abdomen ultrasound done on 04/21/17 showed status post cholecystectomy and the common duct is ectatic measuring up to 0.9 cm. An MRCP showed prominent common duct likely due to post cholecystectomy state. CT of the brain showed no acute intracranial findings. Thoracic spine MRI showed a posterior epidural abscess extending from the lower cervical spine to the thoracic spine resulting in mild to moderate narrowing of the central canal diffusely. There are no findings to suggest vertebral body, osteomyelitis, diskitis. There is enhancement of the costovertebral articulations on the left at T10-11 and T11-T12, which may indicate a septic arthritis as a source of epidural abscess. Lumbar spine MRI as noted on the MRI of the thoracic spine, there is epidural fluid collection, most consistent with epidural enhancement in the lumbar spine , the epidural collection has components both anterior and posterior resulting in fusiform moderate to severe narrowing of the central canal. Additionally, there is enhancement and edema of the said joints at L4-L5, L5-S1 with heterogenous enhancement of the multipurpose muscles at the accompanying levels. This again suggest the multifocal septic arthritis as the source of infection with associated cellulitis/phlegmon of the paraspinal musculature. Cervical spine MRI showed extensive epidural abscess arising from the C6 level in the posterolateral aspect of the epidural space extending into the thoracic spine canal. The patient was seen in consultation by Neurosurgery (Dr. Melendrez) and his recommendation was for antibiotics and he recommended surgical intervention for evacuation of epidural abscesses with multiple level skip laminectomies. The patient had also complaints of shoulder pain. So, for that reason, he was seen in consultation by Orthopedics (Dr. Soliman). She tried to aspirate his joints, but this was a dry tap. Her recommendation was to proceed with his spinal surgery and to continue to follow his shoulder. The patient was also seen in consultation by Infectious Disease specialist, Dr. Franklin, and at that point, the patient's blood cultures were growing methicillin sensitive Staphylococcus aureus. Dr. Franklin's impression was the patient presented with Staphylococcus aureus bacteremia with a large epidural abscess extending from the cervical spine to the end of the bottom of thoracic spine with enhancement of the costovertebral articulation at T10 to T12 consistent with septic arthritis. Prosthetic left knee infection as the joint was warm, tender with a moderate effusion, transaminitis. His recommendation was to continue oxacillin, to pursue a transthoracic echocardiogram, and to have orthopedist re-consult for a left knee aspiration. A transthoracic echocardiogram was performed on 04/22/17 and it showed ejection fraction of 60% to 65%, global left ventricular wall motion contractility within normal limits. No clear vegetation noted on the transthoracic echocardiogram. He was taken to the OR on 04/22/17 and he underwent a multilevel skip laminectomies at L3, L4, and L5, T12, T8, T9, T10, T5, T6, T2, T3 and left C6-7 for evacuation of epidural spinal abscess with estimated blood loss of 800 cc. For more details about the surgical procedure, I refer you to Dr. Melendrez' operative note. The patient was seen in consultation by orthopedist (Dr. Galan) and he performed a knee tap and the fluid was found to have infection too. So, on 04/11, the patient was taken to the OR where he had an open incision, irrigation and debridement of the left knee with exchanger of liner and open ostectomy of the lateral patella with Dr. Galan. The patient had an MRI of the shoulder that showed findings highly suspicious for superficial and deep soft tissue infection with septic arthritis and osteomyelitis, partial with full thickness rotator cuff tendon tear at the junction of the posterior margin of the supraspinatus and anterior margin of the infraspinatus, moderate to large volume of fluid at the subacromial subdeltoid bursa and glenohumeral joint. On 04/26/17, the patient was taken to the OR, where he underwent washout and drainage. After all those drainages, the patient had clinical improvement. He became afebrile, had resolution of his leukocytosis and his blood cultures that initially had grown MSSA became negative on 05/09/17. The patient stayed in the intensive care unit up to 05/06/17. His hospital stay was complicated by postoperative respiratory failure, acute delirium, acute kidney injury, and malnutrition. The patient was transferred to the medical floor and followup CT of the spine was performed and it showed no obvious epidural enhancing masses. CT of the thoracic spine showed status post multilevel laminotomy with 3.6 cm x 2.5 cm x 10 cm cephalocaudal loculated denser than water fluid collections around the spinous processes from T1 to T3 and CT of the lumbar spine showed right paraspinal abscess and a 1.6 x 2.4 cephalocaudal loculated fluid collection with the midline posterior spinous musculature. He was also found to have a right psoas abscess and he recommended repeat MRI of the cervical, lumbar, and thoracic spine. His right psoas abscess was drained by IR on by Dr. Phoenix. The infectious process showed signs of improvement, but the patient's confusion persisted. On 05/22/17, he was taken to the OR once again by Dr. Galan for another right shoulder washout as well as left knee washout. At that point, the patient's blood cultures were negative and Dr. Franklin had recommended 8 weeks of IV Ancef and p.o. rifampin followed by keno terminal operator oral antibiotics. At that point, the patient's major problem was his confusion. There is a report of history of drinking 4 beers a day and there was concern that alcohol could be playing a role on his confusion. But with significant history of infection, a CT of the brain with and without contrast was performed and showed no evidence for acute intracranial abnormality. The patient also had severe protein calorie malnutrition, received TPN for sometime ; but on 06/04/17, he was seen in consultation by Dr. Nava, and at that point, he was made do not resuscitate and there were talks of possible palliative care as his mental status had significantly worsened. Her impression was that Mr. Bonilla is a 76-year-old male that had been hospitalized for 2 and a half months with MSSA sepsis involving abscesses in his epidural space, left knee, right shoulder. He has had abscess drainage, had been on continuous IV antibiotics, has had failing nutritional status despite TPN and has been encephalopathic with waxing and waning mental status. He has a very grave prognosis and is unlikely to clear his infection at this point as he has no nutritional reserve and is not even able to mount a WBC response. At that point, he was unable to have any conversations, was completely disoriented and unable to articulate a sentence. She was able to discuss code status with the and the agreed with do not resuscitate, do not intubate. A family meeting was scheduled for later on to discuss comfort care measures; but at that time, on 06/07/17, the patient had had significant improvement of his mental status and although he was still confused, his family was more optimistic. At this point, Dr. Nava thought that his continuous encephalopathy and very poor nutritional status are signs of poor prognosis, but the family is hopeful that the patient will continue to respond and improve. The patient then complained of left ankle pain and he was seen once again by Dr. Galan, who performed a tap. The fluid showed [address] Galan's impression was that there was no sign of infection or gout/pseudogout by aspirate. His index of suspicion for infection was low prior to the tap and he assumed that some synovitis or mild arthritis was responsible for his pain. His recommendation was for weightbearing as tolerated, bilateral lower extremities, working with PT. If he were to develop significant more swelling or become much more painful, he would consider MRI or I and D, but he saw it as very unlikely. The patient's mental status continued to wax and wane and on 06/10/17, he had an MRI of the brain with and without contrast that showed no acute findings, only atrophy, and findings consistent with mild chronic small vessel ischemic changes. At this point, the impression is that the patient's infection is stable. He will need prolonged antibiotics therapy and his major need at this point is for rehab. His family accepted a bed at [facility], [place] and he is medically stable for discharge at this time, but his prognosis remains very poor. The patient had anemia with very high ferritin. He required a total of 6 PRBCs throughout his hospital stay and last hemoglobin was 7.3. Dr. Franklin also felt that the patient had no peripheral stigmata of infective endocarditis as he would be on a long course of IV antibiotics anyway, he did feel a transthoracic echocardiogram was required. PHYSICAL EXAMINATION: Vital Signs: Temperature 99.3, heart rate is 78, respiratory rate is 20, oxygen saturation is 98% on room air, blood pressure 137 /71. General: The patient is an elderly male, lying in a recliner, in no acute distress. HEENT: Pupils are equal, moist mucous membranes. CVS: Normal S1, S2. Regular rate and rhythm. Chest: Breath sounds present bilaterally with no added sounds. Abdomen: Soft, bowel sounds are present. Extremities: There is mild left ankle edema, but improved when compared to 2 days ago. Neuro: He is alert, awake, oriented x2 to self and place. He is able to move all 4 extremities. Skin: The patient has multiple incisions on his spine with stitches in place, but no erythema, no drainage. DIET: Regular diet with pureed structure and nectar thick liquids. DISPOSITION: To [facility], [place]. MEDICATIONS AT THE TIME OF TRANSFER: 1. Acetaminophen 650 mg p.o. q.4 hours p.r.n. pain or fever. 2. Allopurinol 100 mg p.o. q. a.m. 3. Amlodipine 5 mg p.o. daily. 4. Artificial Tears 1 drop to both eyes q.2 hours p.r.n. dry eye. 5. Bisacodyl suppository 10 mg per rectum daily as needed for constipation. 6. Cephazolin 2 g IV at 1 a.m., 9 a.m. and 5 p.m. for 7 more days. 7. Colace 100 mg p.o. daily as needed. 8. Heparin flush per protocol for PICC line. 9. Lovastatin 5 mg p.o. daily. 10. Milk of magnesia 30 mL p.o. q. 4 hours p.r.n. constipation. 11. Multivitamin 1 capsule p.o. daily. 12. Nebivolol 10 mg p.o. q.a.m. 13. Nystatin powder to affected areas. 14. MiraLAX 17 g p.o. daily. 15. Rifampin 600 mg p.o. daily. 16. Thiamine 100 mg p.o. daily. FOLLOWUP: Please note that the patient will need to follow up with Dr. Franklin as outpatient, but the plan is to switch him to cephalexin after his Ancef is completed. DISCHARGE DIAGNOSES: 1. Severe sepsis. 2. MSSA septicemia with multiple cervical, thoracic, and lumbar spine abscesses , status post drainage and laminectomy. 3. Right shoulder, left knee septic arthritis and right psoas muscle abscess. 4. Multifactorial delirium associated with severe infection, multiple surgeries and alcohol use. 5. Anemia of acute disease with elevated ferritin greater than 1000. 6. Postoperative respiratory failure. 7. Acute kidney injury. 8. Severe protein calorie malnutrition. 9. Deconditioning. SECONDARY DIAGNOSES: 1. Hypertension. 2. Status post partial colectomy due to GI bleed. 3. History of GI bleed in 2012 while on Coumadin after hip replacement. 4. Gout. 5. Status post right total hip arthroplasty in 2012. 6. Status post left knee replacement. 7. Status post left hip replacement. 8. Status post cataract surgery. 9. Status post cholecystectomy. Please keep in mind that this is a summarized version of this patient's very complex and prolonged hospital stay. He will be discharged today to follow up with Dr. Franklin, Dr. Galan, and Dr. Melendrez in 2 weeks. His stitches will be removed as outpatient at Dr. Melendrez' office. Dr. Franklin recommended weekly CBC, CMP, and CRP and those results should be sent to his office. The patient's was educated about his diagnoses and discharge plan and she is in agreement. TIME SPENT: Approximately 100 minutes were spent to complete this discharge. [id number]/[facility] #: [id number] [facility]
== END 2017-06-11 17:05 | DRG 710 ==
LOC: ED 04:20 → MED 14:46 → ICU 04-22 00:03 → SSU 05-06 15:18 → MED 05-11 11:16
PROVIDERS: ADMIT Internal Medicine; ATTEND Internal Medicine
PROC: 30233N1 Transfusion of Nonautologous Red Blood Cells into Peripheral Vein, Percutaneous Approach (ICD-10-PCS; 2017-04-22)
PROC: 0PB40ZZ Excision of Thoracic Vertebra, Open Approach (ICD-10-PCS; 2017-04-25)
PROC: 009U0ZZ Drainage of Spinal Canal, Open Approach (ICD-10-PCS; 2017-04-25)
PROC: 0QB00ZZ Excision of Lumbar Vertebra, Open Approach (ICD-10-PCS; 2017-04-25)
PROC: 0SPD09Z Removal of Liner from Left Knee Joint, Open Approach (ICD-10-PCS; 2017-04-25)
PROC: 0SUD09C Supplement Left Knee Joint with Liner, Patellar Surface, Open Approach (ICD-10-PCS; 2017-04-25)
PROC: 0QBF0ZZ Excision of Left Patella, Open Approach (ICD-10-PCS; 2017-04-25)
PROC: 0RBJ4ZZ Excision of Right Shoulder Joint, Percutaneous Endoscopic Approach (ICD-10-PCS; 2017-04-28)
PROC: 0R9J3ZX Drainage of Right Shoulder Joint, Percutaneous Approach, Diagnostic (ICD-10-PCS; principal; 2017-05-08)
PROC: 0S9D3ZX Drainage of Left Knee Joint, Percutaneous Approach, Diagnostic (ICD-10-PCS; 2017-05-08)
PROC: 3E0336Z Introduction of Nutritional Substance into Peripheral Vein, Percutaneous Approach (ICD-10-PCS; 2017-06-01)
PROC: 0S9G3ZX Drainage of Left Ankle Joint, Percutaneous Approach, Diagnostic (ICD-10-PCS; 2017-06-09)
DX: A41.01 Sepsis due to Methicillin susceptible Staphylococcus aureus (principal); G06.2 Extradural and subdural abscess, unspecified; G93.40 Encephalopathy, unspecified; E43 Unspecified severe protein-calorie malnutrition; J96.01 Acute respiratory failure with hypoxia; L03.312 Cellulitis of back [any part except buttock and flank]; M86.8X1 Other osteomyelitis, shoulder; T84.54XA Infection and inflammatory reaction due to internal left knee prosthesis, initial encounter; M00.9 Pyogenic arthritis, unspecified; M00.062 Staphylococcal arthritis, left knee; L03.113 Cellulitis of right upper limb; N17.9 Acute kidney failure, unspecified; E87.0 Hyperosmolality and hypernatremia; J98.11 Atelectasis; Z68.1 Body mass index [BMI] 19.9 or less, adult; M51.16 Intervertebral disc disorders with radiculopathy, lumbar region; M47.896 Other spondylosis, lumbar region; G89.29 Other chronic pain; M46.56 Other infective spondylopathies, lumbar region; Y79.2 Prosthetic and other implants, materials and accessory orthopedic devices associated with adverse incidents; M19.072 Primary osteoarthritis, left ankle and foot; R65.20 Severe sepsis without septic shock; D63.8 Anemia in other chronic diseases classified elsewhere; B95.61 Methicillin susceptible Staphylococcus aureus infection as the cause of diseases classified elsewhere; M25.462 Effusion, left knee; R79.89 Other specified abnormal findings of blood chemistry; I10 Essential (primary) hypertension; M10.9 Gout, unspecified; D72.829 Elevated white blood cell count, unspecified; E78.00 Pure hypercholesterolemia, unspecified; Z96.1 Presence of intraocular lens; G47.30 Sleep apnea, unspecified; F40.240 Claustrophobia; Z96.643 Presence of artificial hip joint, bilateral; Z96.652 Presence of left artificial knee joint; R41.0 Disorientation, unspecified; R21 Rash and other nonspecific skin eruption; I80.8 Phlebitis and thrombophlebitis of other sites; Y92.239 Unspecified place in hospital as the place of occurrence of the external cause; E87.70 Fluid overload, unspecified; R53.81 Other malaise; E88.09 Other disorders of plasma-protein metabolism, not elsewhere classified; Z66 Do not resuscitate; Z87.891 Personal history of nicotine dependence; Z98.42 Cataract extraction status, left eye; Z98.41 Cataract extraction status, right eye; Z90.49 Acquired absence of other specified parts of digestive tract; Z85.828 Personal history of other malignant neoplasm of skin; Z88.1 Allergy status to other antibiotic agents; Z88.8 Allergy status to other drugs, medicaments and biological substances; Z91.040 Latex allergy status; Z82.49 Family history of ischemic heart disease and other diseases of the circulatory system; Z82.3 Family history of stroke; Z72.89 Other problems related to lifestyle; Y92.9 Unspecified place or not applicable; Z79.01 Long term (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 of anticoagulants
CPT/HCPCS: 36415; 36600; 49406; 70450; 70470; 70553; 71045; 72126; 72129; 72132; 72156; 72157; 72158; 74176; 74181; 76000; 76376; 76536; 76705; 76882; 80048; 80053; 81003; 81015; 82040; 82140; 82270; 82465; 82565; 82728; 82803; 83540; 83550; 83605; 83690; 83735; 84100; 84132; 84134; 84157; 84478; 84484; 84520; 85014; 85018; 85025; 85027; 85610; 85652; 85730; 86140; 86850; 86900; 86901; 86922; 86927; 87040; 87070; 87073; 87077; 87102; 87150; 87186; 87205; 87640; 87641; 88300; 89051; 89060; 93005; 93306; 94002; 94003; 94760; 97112; 97530; 99283; 99284; A9270-GY; A9579; C1751; C1776; G8978-GP-CK; G8978-GP-CL; G8978-GP-CM; G8978-GP-CN; G8979-GP-CH; G8979-GP-CI; G8979-GP-CJ; G8979-GP-CK; G8987-GO-CM; G8988-GO-CI; G8988-GO-CJ; J0330; J0360; J0690; J0696; J1100; J1170; J1630; J1644; J1650; J1720; J1940; J2001; J2060; J2250; J2270; J2405; J2543; J2700; J2704; J2920; J2997; J3010; J3360; J3370; J3411; J3475; J3480; J3486; J7060; J7512; P9016; P9017; P9040; Q9967

== ENCOUNTER → 2017-12-16 10:17 | Day surgery (SDC) | payer BC ==
[~2017-12-16 10:17] MED LIST: Acetaminophen TAB* 325 MG PO PRN; Buffered Lidocaine 0.9% SYRIN* 5 ML/SYR SYRINGE INTRADERM ONE; Bupivacaine 0.25% SDV* 30 ML ONE; Clindamycin 900 MG/D5W BAG(*) 900 MG/50 ML BAG IVPB ONE; DiMENhydriNATE IV* 50 MG/ML VIAL IV PUSH PRN; Midazolam* 1 MG/ML 2 ML VIAL (2 MG) ONE; Naloxone* 0.4 MG/ML 1 ML VIAL IV PRN; Ondansetron INJ* 2 MG/ML VIAL IV PRN; Propofol* 10 MG/ML 20 ML BTL IV PUSH ONE; fentaNYL* 50 MCG/ML 2 ML VIAL (100 MCG VIAL) IV PRN; fentaNYL* 50 MCG/ML 2 ML VIAL (100 MCG VIAL) ONE; oxyCODONE/Acetamin 5/325 MG* TAB PO PRN
[2017-12-16 13:30] VITALS: BP 110/58
== END | disposition home or self-care (01) ==
LOC: OR 10:17
PROVIDERS: ATTEND Plastic Surgery
DX: C44.319 Basal cell carcinoma of skin of other parts of face (principal); I10 Essential (primary) hypertension; E78.5 Hyperlipidemia, unspecified; Z87.891 Personal history of nicotine dependence; M19.90 Unspecified osteoarthritis, unspecified site; Z85.048 Personal history of other malignant neoplasm of rectum, rectosigmoid junction, and anus
CPT/HCPCS: 88305; 88331; 88332; J2250; J2704; J3010

== ENCOUNTER 2018-12-04 09:06 | Observation (INO) | payer BC ==
--- OUTSIDE RECORDS SUMMARY | 2018-12-04 09:19 | XMS REPORT | Continuity of Care Document ---
:1940 External Reference #:[id number] Author Name Jeremiah Thomas MD (transmitted by agent of provider Kaitlynn Calero) Address [address] [place] [address] Care Team Providers Name Role Phone Omar Joe MD - Ophthalmology Care Team Information Hospice Superintendent Fer Patel MD - Allergy & Care Team Information Hospice Superintendent Immunology Adriana Church MD - Care Team Information Hospice Superintendent [phone] Dermatology Matias Royal III, MD - Internal Care Team Information Hospice Superintendent Medicine Jeremiah Thomas MD - Gastroenterology Care Team Information Hospice Superintendent [phone] Problems Active Problems Provider Date Gout Manuel Rao M.D.,FACP Onset: 12/27/2007 Benign essential hypertension Manuel Rao M.D.,FACP Onset: 12/27/2007 History of malignant neoplasm of rectum Manuel Rao M.D.,FACP Onset: 12/27/2007 Hemorrhage of large intestine with Manuel Rao M.D.,FACP Onset: 2008 diverticular disease of large intestine Impaired fasting glycaemia Manuel Rao M.D.,FACP Onset: 09/24/2009 Pure hypercholesterolemia Manuel Rao M.D.,FACP Onset: 04/21/2011 Benign prostatic hypertrophy without Manuel Rao M.D.,FACP Onset: outflow obstruction Impotence of organic origin Manuel Rao M.D.,FACP Onset: 04/21/2011 Low back pain Allison Melendrez MD Onset: 04/20/2017 Lumbosacral spondylosis without Allison Melendrez MD Onset: 04/20/2017 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 reports ETOH Use consumes 2-3 beers per day Tobacco Use Start: Unknown End: Patient is a former quit in 1969. Cant Unknown smoker remember how many per day. Smoked for 10 years. Recreational Drug Use Denies Drug Use Smoking Status Reviewed: 10/27/18 Patient is a former quit in 1969. Cant smoker remember how many per day. Smoked for 10 years. Exercise Type/Frequency Exercises regularly [employer] machines 2 times a week Allergies, Adverse Reactions, Alerts Active Allergies Reaction Severity Comments Date Amoxicillin rash 04/25/2008 Latex 06/16/2012 Inactive Allergies NKDA 04/10/2004 Medications Active Medications SIG Qnty Indications Ordering Provider Date Tamsulosin HCL 1 by mouth every 90caps Matias Royal, 04/07/2018 0.4mg day M.DBritta Capsules Fibercon take 2 tablets by 120tabs Manuel Worley 10/04/2017 625mg mouth two times Shanita Rao,FACP Tablets daily or as directed Finasteride 1 by mouth every 90tabs Matias Royal, 10/04/2017 5mg day M.D. Tablets Probiotic take one cap 90caps Matias Royal, 09/03/2017 250mg daily M.DBrtita Capsules Keflex take 1 tab by 60caps Arnoldo Worley 06/18/2017 500mg Capsules mouth two times a Shanita Dominguez day Lovastatin take 1 tablet at 90tabs Manuel Worley 04/05/2017 20mg bedtime Shanita Rao,FACP Tablets Amlodipine Besylate 1 by mouth every 90tabs I10 Aneta Cotton, 2016 day M.D. 10mg Tablets I10 Viagra 1 by mouth daily 10tabs Manuel Rao, 04/01/2016 50mg Tablets as needed M.D.,FACP Bystolic 1 by mouth once a 90tabs I10 Matias Royal, 10/22/2014 10mg Tablets day M.D. Multivitamins 1 capsule kassy;y 30caps Manuel Rao, 07/28/2012 Capsules M.Dilcia.,FACP Allopurinol take 1 tablet by 90tabs Matias Royal, 04/09/2004 100mg Tablets mouth once daily M.D. Nystatin topical twice a Unknown [id number]/GM Powder day as needed Thiamine HCL 1 by mouth every 90tabs Matias Royal, 100mg Tablets day M.D. Trazodone HCL 1/2 tablet at 45tabs Manuel Rao, 50mg Tablets bedtime as needed M.Meir,FACP Acetaminophen 1 PO Q 8 HRS prn Unknown 500mg Tablets Medications Administered in Office Medication SIG Qnty Indications Ordering Provider Date Depomedrol 80MG Manuel Mc M.D. 06/11/2010 Injection Depomedrol 40MG Manuel Mc M.D. 10/30/2009 Injection Depomedrol 40MG Manuel Mc M.D. 07/24/2009 Injection Immunizations CPT Code Status Date Vaccine Lot # [id number] Given 11/03/2017 Influenza Virus Vaccine, Quadrivalent, Split, [id number] Preservative Free 34496 Given 12/24/2016 Influenza Virus Vaccine, Quadrivalent, Split, [id number] Preservative Free Q2038 Given 01/07/2016 Fluzone Vaccine 59625 Given 02/04/2015 Pneumococcal Conjugate Vaccine 13 Valent For [id number] Intramuscular Use 67709 Given 01/21/2015 Influenza Virus Vaccine, Quadrivalent, Split, [id number] Preservative Free 40687 Given 11/13/2013 Influenza Virus Vaccine, Quadrivalent, Split, [id number] Preservative Free Q2038 Given 10/28/2011 Fluzone Vaccine [id number] 34304 Given 04/21/2011 Tdap - Tetanus/Diptheria/Acellular Pertussis [id number] 43760 Given 04/21/2011 Influenza Virus 3Yrs & Over [id number] 76583 Given 01/11/2008 Zoster (Zostavax) [id number] 28687 Given 12/27/2007 Pneumonia Vaccine [id number] 09988 Given 12/27/2007 Influenza Virus 3Yrs & Over 43750 Given 12/27/2007 Influenza Virus 3Yrs & Over 48331 Vital Signs Date Vital Result Comment 10/27/2018 9:55am Height 70 inches 5'10" Weight 215.00 lb Heart Rate 60 /min BP Systolic 160 mmHg BP Diastolic 83 mmHg O2 % BldC Oximetry 97 % BMI (Body Mass Index) 30.8 kg/m2 10/05/2018 9:02am Height 70 inches 5'10" Weight 212.00 lb Heart Rate 60 /min BP Systolic 180 mmHg BP Diastolic 87 mmHg BP Systolic Sitting 175 mmHg recheck BP Diastolic Sitting 82 mmHg recheck O2 % BldC Oximetry 98 % BMI (Body Mass Index) 30.4 kg/m2 Results Test Date Facility Test Result H/L Range Note Laboratory test 05/24/2018 [facility] Surgical SEE RESULT [address] [place] [address] [phone] 1 SEE RESULT BELOW Name: LEONELA BONILLA : [address]: Jeremiah Thomas MD Acct: [id number] Unit: [id number] AGE: 77 Location: ENDO Re05/24/18 SEX: M Status: DEP REF SPEC: [id number] [place]: 05/24/[address] [facility] [address]: Jeremiah Thomas MD REQ: [id number] RECD: 05/24/18 STATUS: NICHOLE MCINTYRE DR: Matias Royal III, MD _ ORDERED: LEVEL 4/2 FINAL DIAGNOSIS 1. Colon, descending, biopsy: -- Tubular adenoma. -- No high grade dysplasia or malignancy. 2. Colon, sigmoid, biopsy: -- Tubular adenoma. -- No high grade dysplasia or malignancy. CLINICAL HISTORY Screening/Surveillance for malignancy in asymptomatic patient; follow up cancer and polyps; usual bowel habit - every day no blood POST-OPERATIVE DIAGNOSIS Colonoscopy: to right anastomosis; easy; 2 polyps; lower infolded internal diverticulosis two thirds to three fourths debulked; conclusions: status post 2 resections; polyps; lance diverticulosis GROSS DESCRIPTION 1. The specimen is received in formalin labeled, Descending Colon Polyp, and consists of a 1.2 x 0.6 x 0.3 cm aggregate of speckled quintana-red irregular to polypoid soft tissue fragments, which is entirely submitted in one cassette. 2. The specimen is received in formalin labeled, Sigmoid Colon Polyp, and consists of a 1.0 by up to 0.6 x 0.4 cm aggregate of speckled quintana-brown irregular to polypoid soft tissue CONTINUED ON NEXT PAGE DEPARTMENT OF PATHOLOGY, [address] [place] [address] Jose Monzon M.D. Director [facility] # [id number] RUN DATE: 05/25/18 [facility] LAB LIVE PAGE 2 Patient: LEONELA BONILLA [id number] (Continued) GROSS DESCRIPTION (Continued) fragments, which is entirely submitted in one cassette. Signed by and Reported on: Daniella Hernandez MD 05/25/18 1141 END OF REPORT DEPARTMENT OF PATHOLOGY, [address] [place] [address] Jose Monzon M.D. Director [facility] # [id number] Procedures Date Code Description Status 05/24/2018 17958 Colonoscopy Flexible Remove Tumor/Polyp/Lesion Snare Completed Technique 05/24/2018 03140 Colonoscopy,W/Directed Submucosal Injections, Any Completed Substance 05/24/2018 [id number] Colonoscopy Completed 07/23/2012 [id number] Colonoscopy Completed 11/07/2009 [id number] Colonoscopy Completed 04/28/2007 04177510 Colonoscopy Completed 11/27/2003 [id number] Colonoscopy Completed Medical Devices Description No Information Available Encounters Type Date Location Provider Dx Diagnosis Office Visit 10/05/2018 [facility] Internal Matias Royal, I10 Essential ( primary) 9:00a Medicine - Ccmob M.D. 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 Z86.010 Personal history of colonic polyps Office Visit 09/02/2018 8:30a [facility] For Arnoldo Worley Z79.2 care home Infectious Shanita Dominguez (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 of Diseases antibiotics B95.61 Methicillin suscep staph infct causing dis classd elswhr T84.54xD Infect/inflm reaction due to internal left knee prosth, subs Office Visit 05/27/2018 [facility] Gastroenterology Jeremiah Spears Z86.010 Personal 1:00p MD William history of colonic polyps Z79.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 B95.61 Methicillin suscep staph infct causing dis classd elswhr 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 (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 of 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 K57.30 Dvrtclos of lg int w/o perforation or abscess w/o bleeding Office Visit 05/10/2018 [facility] Z48.89 Encounter for 9:00a [facility] MD Aneesh other specified surgical aftercare 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 10/05/2018 N40.1 Benign prostatic hyperplasia with lower Matias Royal M.D. urinary tract symptoms 10/05/2018 E78.2 Mixed hyperlipidemia Matias Royal M.D. 10/05/2018 Z79.2 care home (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 of antibiotics Matias Royal M.D. 10/05/2018 Z86.010 Personal history of colonic polyps Matias Royal M.D. 09/02/2018 Z79.2 care home (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 of antibiotics Arnoldo Dominguez M.D. 09/02/2018 B95.61 Methicillin susceptible Staphylococcus Arnoldo Dominguez M.D. aureus infection as t 09/02/2018 T84.54xD Infection and inflammatory reaction due Arnoldo Dominguez M.D. 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 Jeremiah Thomas MD 05/27/2018 K57.30 Diverticulosis of large intestine Jeremiah Thomas MD without perforation or abs 05/24/2018 Z12.11 Encounter for screening for malignant Jeremiah Thomas MD neoplasm of colon 05/24/2018 D12.4 Benign neoplasm of descending colon Jeremiah Thomas MD 05/24/2018 D12.5 Benign neoplasm of sigmoid colon Jeremiah Thomas MD 05/24/2018 K57.30 Dvrtclos of lg int w/o perforation or Jeremiah Thomas MD abscess w/o bleeding 05/24/2018 Z85.038 Personal history of malignant neoplasm Jeremiah Thomas MD of large intestine 05/10/2018 Z48.89 Encounter for other specified surgical Allison Melendrez MD aftercare 05/10/2018 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 Functional Status Description No Information Available Mental Status Description No Information Available Referrals Description No Information Available
--- OUTSIDE RECORDS SUMMARY | 2018-12-04 09:19 | XMS REPORT | Continuity of Care Document ---
:1940 External Reference #:[id number] Author Name DEANDRE Maddox (transmitted by agent of provider Dunia Atkinson) Address [address] [place] [address] Care Team Providers Name Role Phone Omar Joe MD - Ophthalmology Care Team Information Trash Collector Fer Patel MD - Allergy & Care Team Information Trash Collector Immunology Adriana Church MD - Care Team Information Trash Collector [phone] Dermatology Matias Royal III, MD - Internal Care Team Information Trash Collector [phone] Medicine Jeremiah Thomas MD - Gastroenterology Care Team Information Trash Collector [phone] Problems Active Problems Provider Date Gout Manuel [...] MD Onset: 04/20/2017 myelopathy Staphylococcal arthritis Doc Galan MD Onset: 07/22/2017 Social History Type Date [...] Use Denies Drug Use Smoking Status Reviewed: 11/11/18 Patient is a former quit in 1969. Cant smoker remember how many per day. Smoked for 10 years. Exercise Type/Frequency Exercises regularly [employer] machines 2 times a week Allergies, Adverse [...] cap 90caps Matias Royal, 09/03/2017 250mg daily M.DBritta Capsules Keflex take 1 tab by 60caps [...] capsule kassy;y 30caps Manuel Rao, 07/28/2012 Capsules Marcela.Dilcia.,FACP Allopurinol take 1 tablet by 90tabs Matias Royal, 04/09/2004 100mg Tablets mouth once daily M.D. Nystatin topical twice a Unknown [id number]/GM Powder day as needed Thiamine HCL 1 by mouth every 90tabs Matias Royal, 100mg Tablets day M.D. Trazodone HCL 1/2 tablet at 45tabs Matias Royal, 50mg Tablets bedtime as needed M.D. Acetaminophen 1 PO Q 8 HRS prn Unknown 500mg Tablets Medications Administered in Office Medication SIG Qnty Indications Ordering Provider Date Depomedrol 80MG Manuel Mc M.D. 06/11/2010 Injection Depomedrol 40MG Manuel Mc M.D. 10/30/2009 Injection Depomedrol 40MG Manuel Mc M.D. 07/24/2009 Injection Immunizations CPT Code Status Date Vaccine Lot # [id number] Given 11/03/2017 Influenza Virus Vaccine, Quadrivalent, Split, [id number] Preservative Free 38947 Given 12/24/2016 Influenza Virus Vaccine, Quadrivalent, Split, [id number] Preservative Free Q2038 Given 01/07/2016 Fluzone Vaccine 28668 Given 02/04/2015 Pneumococcal Conjugate Vaccine 13 Valent For [id number] Intramuscular Use 79218 Given 01/21/2015 Influenza Virus Vaccine, Quadrivalent, Split, [id number] Preservative Free 42643 Given 11/13/2013 Influenza Virus Vaccine, Quadrivalent, Split, [id number] Preservative Free Q2038 Given 10/28/2011 Fluzone Vaccine [id number] 85819 Given 04/21/2011 Tdap - Tetanus/Diptheria/Acellular Pertussis [id number] 51404 Given 04/21/2011 Influenza Virus 3Yrs & Over [id number] 82378 Given 01/11/2008 Zoster (Zostavax) [id number] 81680 Given 12/27/2007 Pneumonia Vaccine [id number] 01782 Given 12/27/2007 Influenza Virus 3Yrs & Over 28979 Given 12/27/2007 Influenza Virus 3Yrs & Over 81078 Vital Signs Date Vital Result Comment 11/11/2018 9:25am Height 70 inches 5'10" Weight 215.00 lb Heart Rate 60 /min BP Systolic Sitting 140 mmHg BP Diastolic Sitting 80 mmHg Pain Level 8 BMI (Body Mass Index) 30.8 kg/m2 10/27/2018 9:55am Height 70 inches 5'10" Weight 215.00 lb Heart Rate 60 /min BP Systolic 160 mmHg BP Diastolic 83 mmHg O2 % BldC Oximetry 97 % BMI (Body Mass Index) 30.8 kg/m2 Results Test Date Facility Test Result H/L Range Note Laboratory test 05/24/2018 [facility] Surgical SEE RESULT [address] [place] [address] [phone] 1 SEE RESULT BELOW Name: LEONELA BONILLA : [address]: Jeremiah Thomas MD Acct: [id number] Unit: [id number] AGE: 77 Location: ENDO Re05/24/18 SEX: M Status: DEP REF SPEC: [id number] [place]: 05/24/[address] [facility] [address]: Jeremiah Thomas MD REQ: [id number] RECD: 05/24/18 STATUS: NICHOLE MCINTYRE DR: Matias [...] CONTINUED ON NEXT PAGE DEPARTMENT OF PATHOLOGY, [address] [place] [address] Jose Monzon M.D. Director [facility] # [id number] RUN DATE: 05/25/18 [facility] LAB LIVE PAGE 2 Patient: LEONELA BONILLA [id number] (Continued) GROSS DESCRIPTION (Continued) fragments, which is entirely submitted in one cassette. Signed by and Reported on: Daniella Hernandez MD 05/25/18 1141 END OF REPORT DEPARTMENT OF PATHOLOGY, [address] [place] [address] Jose Monzon M.D. Director [facility] # [id number] Procedures Date Code Description Status 05/24/2018 51413 Colonoscopy Flexible Remove Tumor/Polyp/Lesion Snare Completed Technique 05/24/2018 00885 Colonoscopy,W/Directed Submucosal Injections, Any Completed Substance 05/24/2018 [id number] Colonoscopy Completed 07/23/2012 [id number] Colonoscopy Completed 11/07/2009 [id number] Colonoscopy Completed 04/28/2007 [id number] Colonoscopy Completed 11/27/2003 [id number] Colonoscopy Completed Medical Devices Description No Information Available Encounters Type Date Location Provider Dx Diagnosis Office Visit 10/05/2018 [facility] Internal Matias Royal, I10 Essential ( primary) 9:00a Medicine - Ccmob MNeelam hypertension N40.1 Benign prostatic hyperplasia with lower urinary tract symp E78.2 Mixed hyperlipidemia Z79.2 [facility] (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 of antibiotics Z86.010 Personal history of colonic polyps Office Visit 09/02/2018 8:30a [facility] For Arnoldo Worley Z79.2 [facility] Infectious Shanita Dominguez (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 of Diseases antibiotics B95.61 Methicillin suscep staph infct causing dis classd elswhr T84.54xD Infect/inflm reaction due to internal left knee prosth, subs Office Visit 05/27/2018 [facility] Gastroenterology Jeremiah Spears Z86.010 Personal 1:00p MD William history of colonic polyps Z79.899 Other [facility] (current) drug therapy B95.61 Methicillin suscep staph infct causing dis classd elswhr 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 10/05/2018 N40.1 Benign prostatic hyperplasia with lower Matias Royal M.D. urinary tract symptoms 10/05/2018 E78.2 Mixed hyperlipidemia Matias Royal M.D. 10/05/2018 Z79.2 [facility] (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 of antibiotics Matias Royal M.D. 10/05/2018 Z86.010 Personal history of colonic polyps Matias Royal M.D. 09/02/2018 Z79.2 [facility] (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 of antibiotics Arnoldo Dominguez M.D. 09/02/2018 B95.61 Methicillin susceptible Staphylococcus Arnoldo Dominguez M.D. aureus infection as t 09/02/2018 T84.54xD Infection and inflammatory reaction due Arnoldo Dominguez M.D. to internal left kne 05/27/2018 Z86.010 Personal history of colonic polyps Jeremiah Thomas MD 05/27/2018 Z79.899 Other [facility] (current) drug therapy Jeremiah Thomas MD 05/27/2018 B95.61 Methicillin susceptible Staphylococcus Jeremiah Thomas MD aureus infection as t 05/27/2018 Z79.2 [facility] (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 of antibiotics Jeremiah Thomas MD [...] neoplasm Jeremiah Thomas MD of large intestine Plan of Treatment Future Appointment(s):05/12/2019 10:00 am - DEANDRE Maddox at [facility] Functional Status Description No Information Available Mental Status Description No Information Available Referrals Description No Information Available
--- OUTSIDE RECORDS SUMMARY | 2018-12-04 09:19 | XMS REPORT | Continuity of Care Document ---
:1940 External Reference #:[id number] Author Name Matias oRyal M.D. (transmitted by agent of provider Uma Shaw) Address [address] [facility] [facility] [address], [place] [address] Care Team Providers Name Role Phone Omar Joe MD - Ophthalmology Care Team Information [facility] Fer Patel MD - Allergy & Care Team Information [facility] Immunology Adriana Church MD - Care Team Information [facility] [phone] Dermatology Matias Royal III, MD - Internal Care Team Information [facility]rer [phone] Medicine Jeremiah Thomas MD - Gastroenterology Care Team Information [facility] [phone] Problems Active Problems Provider Date Gout Manuel [...] smoker, smoked 1/2 pack smoked for 30 years. a day for 5 years.Pt reports ETOH Use 04/07/2018 Consumes 2 beers per day Tobacco Use Start: Unknown End: Patient is a former quit in 1969. Cant Unknown smoker remember how many per day. Smoked for 10 years. Recreational Drug Use Denies Drug Use Smoking Status Reviewed: 10/05/18 Patient is a former quit in 1969. Cant smoker remember how many per day. Smoked for 10 years. Allergies, Adverse Reactions, Alerts Active Allergies Reaction Severity Comments Date Amoxicillin rash 04/25/2008 Latex 06/16/2012 Inactive Allergies NKDA 04/10/2004 Medications Active Medications SIG Qnty Indications Ordering Provider Date Tamsulosin HCL 1 by mouth every 90caps Matias Royal, 04/07/2018 0.4mg day M.DBritta Capsules Fibercon take 2 tablets by 120tabs Manuel Worley 10/04/2017 625mg mouth two times Shanita Rao,FACP Tablets daily or as directed Ibuprofen by mouth every 4 30tabs Manuel Worley 10/04/2017 400mg to 6 hours as Shanita Rao,FACP Tablets needed Finasteride 1 by mouth every 90tabs Matias Royal, 10/04/2017 5mg day M.DBritta Tablets Probiotic take one cap 90caps Matias Royal, 09/03/2017 250mg daily M.DBritta Capsules Keflex take 1 tab by 60capapril Worley 06/18/2017 500mg Capsules mouth two times a Shanita Dominguez day Lovastatin take 1 tablet at 90tabs Manuel Worley 04/05/2017 20mg bedtime Shanita Rao,FACP Tablets Amlodipine Besylate 1 by mouth every 90tabs I10 Aneta Cotton, 2016 day M.D. 10mg Tablets I10 Viagra 1 by mouth daily 10tabs Manuel Rao, 04/01/2016 50mg Tablets as needed M.D.,FACP Bystolic 1 by mouth once a 90tabs I10 Manuel Rao, 10/22/2014 10mg Tablets day M.D.,FACP Multivitamins 1 capsule kassy;y 30caps Manuel Rao, 07/28/2012 Capsules M.D.,FACP Allopurinol take 1 tablet by 90tabs Manuel Rao, 04/09/2004 100mg Tablets mouth once daily M.D.,FACP Nystatin topical twice a Unknown [id number]/GM Powder day as needed Thiamine HCL 1 by mouth every 90tabs Librado Green, 100mg Tablets day M.D. Trazodone HCL 1/2 tablet at 45tabs Manuel Rao, 50mg Tablets bedtime as needed M.D.,FACP Acetaminophen 1 PO Q 8 HRS prn Unknown 500mg Tablets History Medications Suprep Bowel Prep Kit as directed 354ml Jeremiah Thomas, 04/20/2018 - 05/26/2018 17.5-3.13-1.6GM/177ML Solution Medications Administered in Office Medication SIG Qnty Indications Ordering Provider Date Depomedrol 80MG Manuel Mc M.D. 06/11/2010 Injection Depomedrol 40MG Manuel Mc M.D. 10/30/2009 Injection Depomedrol 40MG Manuel Mc M.D. 07/24/2009 Injection Immunizations CPT Code Status Date Vaccine Lot # [id number] Given 11/03/2017 Influenza Virus Vaccine, Quadrivalent, Split, [id number] Preservative Free 87030 Given 12/24/2016 Influenza Virus Vaccine, Quadrivalent, Split, [id number] Preservative Free [id number] Given 01/07/2016 Fluzone Vaccine 40617 Given 02/04/2015 Pneumococcal Conjugate Vaccine 13 Valent For [id number] Intramuscular Use 50251 Given 01/21/2015 Influenza Virus Vaccine, Quadrivalent, Split, [id number] Preservative Free 85751 Given 11/13/2013 Influenza Virus Vaccine, Quadrivalent, Split, [id number] Preservative Free Q2038 Given 10/28/2011 Fluzone Vaccine [id number] 85597 Given 04/21/2011 Tdap - Tetanus/Diptheria/Acellular Pertussis [id number] 68066 Given 04/21/2011 Influenza Virus 3Yrs & Over [id number] 32806 Given 01/11/2008 Zoster (Zostavax) [id number] 86339 Given 12/27/2007 Pneumonia Vaccine [id number] 24133 Given 12/27/2007 Influenza Virus 3Yrs & Over 88231 Given 12/27/2007 Influenza Virus 3Yrs & Over [id number] Vital Signs Date Vital Result Comment 10/05/2018 9:02am Height 70 inches 5'10" Weight 212.00 lb Heart Rate 60 /min BP Systolic 180 mmHg BP Diastolic 87 mmHg BP Systolic Sitting 175 mmHg recheck BP Diastolic Sitting 82 mmHg recheck O2 % BldC Oximetry 98 % BMI (Body Mass Index) 30.4 kg/m2 09/02/2018 8:32am Height 70 inches 5'10" Weight 210.50 lb Heart Rate 70 /min BP Systolic Sitting 128 mmHg BP Diastolic Sitting 72 mmHg Respiratory Rate 14 /min Body Temperature 97.7 F Pain Level 5 back BMI (Body Mass Index) 30.2 kg/m2 Results Test Date Facility Test Result H/L Range Note Laboratory test 05/24/2018 [facility] Surgical SEE RESULT [address] Pathology BELOW [place] [id number] [phone] 1 SEE RESULT BELOW Name: LEONELA BONILLA : [address]: Jeremiah Thomas MD Acct: [id number] Unit: [id number] AGE: 77 Location: ENDO Re05/24/18 SEX: M Status: DEP REF SPEC: [id number] [place]: 05/24/[address] [facility] [address]: Jeremiah Thomas MD REQ: [id number] RECD: 05/24/18 STATUS: NICHOLE MCINTYRE DR: Matias [...] CONTINUED ON NEXT PAGE DEPARTMENT OF PATHOLOGY, [address] [place] [address] Jose Monzon M.D. Director NERY # [id number] RUN DATE: 05/25/18 [facility] LAB LIVE PAGE 2 Patient: LEONELA BONILLA [id number] (Continued) GROSS DESCRIPTION (Continued) fragments, which is entirely submitted in one cassette. Signed by and Reported on: Daniella Hernandez MD 05/25/18 1141 END OF REPORT DEPARTMENT OF PATHOLOGY, [address] [place] [address] Jose Monzon M.D. Director NERY # [id number] Procedures Date Code Description Status 05/24/2018 15088 Colonoscopy Flexible Remove Tumor/Polyp/Lesion Snare Completed Technique 05/24/2018 78610 Colonoscopy,W/Directed Submucosal Injections, Any Completed Substance 05/24/2018 08131730 Colonoscopy Completed 07/23/2012 57174023 Colonoscopy Completed 11/07/2009 66531904 Colonoscopy Completed 04/28/2007 59624256 Colonoscopy Completed 11/27/2003 [id number] Colonoscopy Completed Medical Devices Description No Information Available Encounters Type Date Location Provider Dx Diagnosis Office Visit 09/02/2018 [facility] Arnoldo Worley Z79.2 intermediate designer ( current) 8:30a Infectious Shanita Dominguez use of antibiotics Diseases B95.61 Methicillin suscep staph infct causing dis classd elswhr T84.54xD Infect/inflm reaction due to internal left knee prosth, subs Office Visit 05/27/2018 [facility] Gastroenterology Jeremiah T. Z86.010 Personal 1:00p MD William history of colonic polyps Z79.899 Other watermelon inspector (current) drug therapy B95.61 Methicillin suscep staph infct causing dis classd elswhr Z79.2 penitentiary (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 of antibiotics K57.30 Dvrtclos of lg int w/o perforation or abscess w/o bleeding Office Visit 05/10/2018 Neurosurgery [facility] Z48.89 Encounter for 9:00a [facility] MD Aneesh other specified surgical aftercare Z79.2 intermediate designer (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 of antibiotics Assessments Date Code Description Provider 10/05/2018 I10 Essential (primary) hypertension Matias Royal M.D. 10/05/2018 N40.1 Benign prostatic hyperplasia with lower Matias Royal M.D. urinary tract symptoms 10/05/2018 E78.2 Mixed hyperlipidemia Matias Ryoal M.D. 10/05/2018 Z79.2 penitentiary (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 of antibiotics Matias Royal M.D. 10/05/2018 Z86.010 Personal history of colonic polyps Matias Royal M.D. 09/02/2018 Z79.2 intermediate designer (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 of antibiotics Arnoldo Dominguez M.D. 09/02/2018 B95.61 Methicillin susceptible Staphylococcus Arnoldo Dominguez M.D. aureus infection as t 09/02/2018 T84.54xD Infection and inflammatory reaction due Arnoldo Dominguez M.D. to internal left kne 05/27/2018 Z86.010 Personal history of colonic polyps Jeremiah Thomas MD 05/27/2018 Z79.899 Other assisted (current) drug therapy Jeremiah Thomas MD 05/27/2018 B95.61 Methicillin susceptible Staphylococcus Jeremiah Thomas MD aureus infection as t 05/27/2018 Z79.2 penitentiary (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 of antibiotics Jeremiah Thomas MD [...] surgical Allison Melendrez MD aftercare 05/10/2018 Z79.2 intermediate designer (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 of antibiotics Allison Melendrez MD Plan of Treatment Future Appointment(s):10/27/2018 9:30 am - Jeremiah Thomas MD at [facility] Nurqkiufqglnfokp01/20/2019 9:00 am - Allison Melendrez MD at [facility]10/05/2018 - Matias Royal M.D.I10 Essential (primary) fvjzyffquvhdJ79.1 Benign prostatic hyperplasia with lower urinary tract asqtsgtqO46.2 Mixed zfjfectqbrmookL99.2 penitentiary (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 of pziqdipgataH19.010 Personal history of colonic polyps Functional Status Description No Information Available Mental Status Description No Information Available Referrals Description No Information Available
--- NOTE | 2018-12-04 10:01 | ED ---
Back Pain - HPI Summary HPI Summary: This pt is a 78 Y/O M presenting to [facility] accompanied by his for a CC of back pain that is rated an 8/10 in severity. His states that he has been on ABx due to infections in his Left knee, Right shoulder, and back. He has been on shelter ABx for about a year and takes them 2 times a day. He has had no symptoms for around a year. He states that his upper back has been hurting for around a month and the pain is similar to the pain he had last year. He denies any fevers, rigors, night diaphoresis, abdominal pain, N/V, and dysuria. He states that the pain has been increasing since the onset. He states no aggravting or alleviating symptoms. He has an appointment with pain management and Dr. Dominguez in 1 week. He has a productive cough with a clear phlegm production. He has a PMHx of intraspinal abscesses. - History of Current Complaint Chief Complaint: EDBackInjuryPain Stated Complaint: INFECTION OF BACK PER PT Time Seen by Provider: 12/04/18 09:30 Hx Obtained From: Patient, Family/Activity Director - Onset/Duration: Gradual Onset - 1 month, Still Present, Worse Since - onset Onset/Duration: Started Weeks Ago - 4, Still Present, Worse Since - onset Timing: Constant, Lasting Weeks - 4 Back Pain Location: Is Discrete @ - upper back Severity Initially: Moderate Severity Currently: Severe Pain Intensity: 8 Pain Scale Used: 0-10 Numeric Aggravating Symptom(s): Nothing Alleviating Symptom(s): Nothing Associated Signs And Symptoms: Positive: Negative - rigors, night diaphoresis, N /V, and dysuria., Other - POSITIVE: productive cough with clear phlegm. Negative: Fever, Abdominal Pain Related History: Similar Episode Dx As - previous Dx of intraspinal abcesses - Allergies/Home Medications Allergies/Adverse Reactions: Allergies Allergy/AdvReac Type Severity Reaction Status Date / Time amoxicillin Allergy Intermediate Rash Verified 12/04/18 09:12 celecoxib [From Celebrex] Allergy Intermediate Rash Verified 12/04/18 09:12 latex Allergy Intermediate Rash Verified 12/04/18 09:12 Home Medications: Home Medications Calcium Polycarbophil TAB* [Fibercon TAB*] 2 tab PO BID 12/04/18 [History Confirmed 12/04/18] Cephalexin CAP* [Keflex 500 CAP*] 500 mg PO BID 12/04/18 [History Confirmed ] Nebivolol HCl [Bystolic] 10 mg PO DAILY 12/04/18 [History Confirmed 12/04/18] Nystatin TOP POWDER* 1 applic TOPICAL BID 12/04/18 [History Confirmed 12/04/18] Sildenafil (NF) [Viagra (NF)] 50 mg PO DAILY 12/04/18 [History Confirmed ] traZODone TAB* [Desyrel TAB*] 50 mg PO BEDTIME 12/04/18 [History Confirmed 12/04] PMH/Surg Hx/FS Hx/Imm Hx Previously Healthy: Yes Endocrine/Hematology History: Reports: Hx Anticoagulant Therapy Denies: Hx Diabetes Cardiovascular History: Reports: Hx Hypercholesterolemia, Hx Hypertension Denies: Hx Pacemaker/ICD, Other Cardiovascular Problems/Disorders Respiratory History: Reports: Other Respiratory Problems/Disorders - Post op respiratory failure 04/11 Denies: Hx Chronic Obstructive Pulmonary Disease (COPD), Hx Sleep Apnea GI History: Reports: Hx Diverticulosis - colon resection-- 6 yrs ago, Other GI Disorders - HX OF COLECTOMY X 2 FOR RUPTURED INTESTINES AND 1 FOR CANCER, History: Denies: Hx Dialysis, Hx Kidney Stones, Hx Renal Disease, Other Problems/ Disorders Musculoskeletal History: Reports: Hx Arthritis - LEFT KNEE & LEFT HIP REPLACEMENT,RIGHT HIP ARTHRITIS, right hip 07/11 arthro, Other Musculoskeletal History - 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 basal cell carcinoma of skin Hx Chemotherapy: No Hx Radiation Therapy: No - Surgical History Surgical History: Yes Surgery Procedure, Year, and Place: 2005? COLON RESECTION, [facility]. 2005 LEFT KNEE REPLACEMENT, [facility]. 2007 LEFT HIP REPLACEMENT, [facility]. RIGHT HAND SURGERY TRIGGER FINGER AND CARPAL TUNNEL RELEASE, [facility]. right hip replace 06/2012. 06/2012 right hip replacement [facility]. LAPAROSCOPIC CHOLECYSTECTOMY, [facility]. 2ND COLON RESECTION, [facility]. 05/2012 BILATERAL CATARACT SURGERY WITH IOL IMPLANTS. SPINE DERBRIDEMENT. LEFT KNEE HARDWARE REMOVAL. 04/26/17 RIGHT SHOULDER DEBRIDEMENT Hx Anesthesia Reactions: No Infectious Disease History: No Infectious Disease History: Denies: Traveled Outside the [place] in Last 30 Days - Family History Known Family History: Positive: Other - stroke, [place] - Social History Occupation: Retired Lives: With Family Alcohol Use: Daily Alcohol Amount: 1-2 beers Hx Substance Use: No Substance Use Type: Reports: None Hx Tobacco Use: Yes Smoking Status (MU): Former Smoker Review of Systems Negative: Fever, Skin Diaphoresis, Other - NEGATIVE: rigors Negative: Abdominal Pain, Vomiting, Nausea Negative: dysuria Musculoskeletal: Other - POSITIVE: upper back pain All Other Systems Reviewed And Are Negative: Yes Physical Exam - Summary Physical Exam Summary: VITAL SIGNS: Reviewed. GENERAL: Patient is a well-developed and nourished male who is lying comfortable in the stretcher. Patient is not in any acute respiratory distress. HEAD AND FACE: No signs of trauma. No ecchymosis, hematomas or skull depressions. No sinus tenderness. EYES: PERRLA, EOMI x 2, No injected conjunctiva, no nystagmus. EARS: Hearing grossly intact. Ear canals and tympanic membranes are within normal limits. MOUTH: Oropharynx within normal limits. NECK: Supple, trachea is midline, no adenopathy, no JVD, no carotid bruit, no c- spine tenderness, neck with full ROM CHEST: Symmetric, no tenderness at palpation LUNGS: Clear to auscultation bilaterally. No wheezing or crackles. CVS: Regular rate and rhythm, S1 and S2 present, no murmurs or gallops appreciated. ABDOMEN: Soft, non-tender. No signs of distention. No rebound no guarding, and no masses palpated. Bowel sounds are normal. EXTREMITIES: FROM in all major joints, no edema, no cyanosis or clubbing. NEURO: Alert and oriented x 3. No acute neurological deficits. Speech is normal and follows commands. SKIN: Dry and warm Triage Information Reviewed: Yes Vital Signs On Initial Exam: Initial Vitals Temp Pulse Resp BP Pulse Ox 98.3 F 61 16 165/95 97 12/04/18 09:08 12/04/18 09:08 12/04/18 09:08 12/04/18 09:08 12/04/18 09:08 Vital Signs Reviewed: Yes Procedures - Sedation Patient Received Moderate/Deep Sedation with Procedure: No Diagnostics - Vital Signs Vital Signs Temp Pulse Resp BP Pulse Ox 12/04/18 09:08 98.3 F 61 16 165/95 97 - Laboratory Result Diagrams: 12/04/18 09:52 12/04/18 09:52 Lab Statement: Any lab studies that have been ordered have been reviewed, and results considered in the medical decision making process. - Radiology CXR Radiology Interpretation Completed By: Radiologist Summary of Radiographic Findings: No active cardiopulmonary disease is noted. ED physician has reviewed this report. Scoliosis Series X-Ray Radiology Interpretation Completed By: Radiologist Summary of Radiographic Findings: Multilevel degenerative disc disease without definite fracture. No changes. noted since November 07, 2018. ED physician has reviewed this report. - CT Lumbar CT CT Interpretation Completed By: Radiologist Summary of CT Findings: Multilevel degenerative disc disease is noted with laminectomy at the L3. level. Moderate degree of spinal stenosis due to facet and ligamentous hypertrophy is. noted at this level. Other areas of degenerative disc disease with facet arthropathy is. noted. No compression fracture is identified. ED physician has reviewed this report. Thoracic CT CT Interpretation Completed By: Radiologist Summary of CT Findings: Multilevel degenerative disc disease is noted. No fracture of the thoracic. spine is noted. Spinal canal where visualized is grossly unremarkable. ED physician has reviewed this report. Back Pain Course/Dx - Course Assessment/Plan: This patient is a 78-year-old male who presents to the emergency room with a chief complaint of back pain. Discussed the case with Dr. Melendrez from neurosurgery and he recommends for the patient to get blood work, x-rays of the back and the CT of the T-spine and L-spine. Blood work without any significant abnormality except for total bilirubin of 1.1. ESR is 4 , and CRP is less than 1. There is no increased wbcs. X-ray of the spine impression: multilevel degenerative disc disease without definite fracture. No change noted since November 07. Chest x-ray impression: No active cardiopulmonary disease. T spine CT IMPRESSION: Multilevel degenerative disc disease is noted. No fracture of the thoracic spine is noted. Spinal canal where visualized is grossly unremarkable. L spine CT IMPRESSION: Multilevel degenerative disc disease is noted with laminectomy at the L3 level. Moderate degree of spinal stenosis due to facet and ligamentous hypertrophy is noted at this level. Other areas of degenerative disc disease with facet arthropathy is noted. No compression fracture is identified. I discussed my physical exam and findings with Dr. Melendrez again and he recommends for the patient to be admitted and that tomorrow he is going to get an MRI of the lumbar and the thoracic spine. I discussed my physical exam and findings with Dr. Friedman from the hospital services was accepted the patient for admission. The patient is hemodynamically stable alert and oriented 3. - Diagnoses Provider Diagnoses: Back pain - Provider Notifications Discussed Care Of Patient With: Blair Friedman Instructed by Provider To: Admit As Inpatient Admit/Transition Orders Completed By ED Provider: Yes Discharge ED - Sign-Out/Discharge Documenting (check all that apply): Patient Departure - admitted - Discharge Plan Condition: Stable Disposition: ADMITTED TO [facility] - Billing Disposition and Condition Condition: STABLE Disposition: Admitted to [facility] - Attestation Statements Document Initiated by Virginiaibe: Yes Documenting Scribe: Dennis Lawrence Provider For Whom Scribe is Documenting (Include Credential): Matias Lomax MD Scribe Attestation: I, Dennis Lawrence, scribed for Matias Lomax MD on 12/04/18 at 1834. Scribe Documentation Reviewed: Yes Provider Attestation: The documentation as recorded by the Dennis carter accurately reflects the service I personally performed and the decisions made by me, Matias Lomax MD Status of Scribe Document: Viewed Consult Consult: Dr. Melendrez, neurosurgeon, recommends x-rays in the upright position to check for scoliosis was consulted at 1005. 1241: Dr. Melendrez was consulted again and informed of the pt's current condition including his imaging results. He recommended the pt be admitted for pain control and an MRI tomorrow.
[2018-12-04 10:04] LABS: ABS Eosinophils 0.1 10^3/ul (0-0.6); ABS Lymphocytes 0.7 10^3/ul (1.0-4.8); ABS Monocytes 0.5 10^3/ul (0-0.8); ABS Neutrophils 4.7 10^3/ul (1.5-7.7); Eosinophil % 1.6 %; Hematocrit 47 % (42-52); Lymphocyte % 12.1 %; Mean Corpuscular HGB Conc 34 g/dL (31-36); Mean Corpuscular Hemoglobin 33 pg (27-31); Mean Corpuscular Volume 96 fL (80-94); Platelet Count 114 10^3/uL (150-450); Red Blood Count 4.88 10^6 /uL (4.18-5.48); Red Cell Distribution Width 14 % (10-15); White Blood Count 6.1 10^3/uL (3.5-10.8)
[2018-12-04 10:16] LABS: ALT 18 U/L (7-52); AST 19 U/L (13-39); Albumin 4.5 g/dL (3.2-5.2); Albumin/Globulin Ratio 1.7 (1-3); Alkaline Phosphatase 64 U/L (34-104); Anion Gap 7 mmol/L (2-11); BUN/Creatinine Ratio 19.2 (8-20); Blood Urea Nitrogen 19 mg/dL (6-24); C Reactive Protein < 1.00 mg/L (<8.01); CO2 Carbon Dioxide 27 mmol/L (22-32); Calcium 9.3 mg/dL (8.6-10.3); Chloride 102 mmol/L (101-111); EGFR African American 88.9 (>60); EGFR Non-African American 73.5 (>60); Globulin 2.6 g/dL (2-4); Glucose 96 mg/dL (70-100); Potassium 3.8 mmol/L (3.5-5.0); Sodium 136 mmol/L (135-145); Total Protein 7.1 g/dL (6.4-8.9)
[2018-12-04 10:18] LABS: Troponin I 0.03 ng/mL (<0.04)
[2018-12-04 11:07] LABS: Erythrocyte Sed Rate 4 mm/Hr (0-19)
[2018-12-04] MEDS ORDERED: Morphine 4 MG/ML VIAL (1 ml) 4 MG/ML VIAL IV ONE (12:14)
[2018-12-04] MEDS ORDERED: Ketorolac INJ* 30 MG/ML 1 ML VIAL IV PUSH ONE (12:15)
[2018-12-04] MEDS ORDERED: Acetaminophen TAB* 325 MG PO PRN (13:50)
[2018-12-04] MEDS ORDERED: traMADol TAB* 50 MG PO PRN (13:51)
[2018-12-04] MEDS ORDERED: oxyCODONE/Acetamin 5/325 MG* TAB PO PRN (13:51)
[2018-12-04 14:18] LABS: Urine Appearance Clear; Urine Bacteria Absent (Absent); Urine Bilirubin Negative (Negative); Urine Blood Negative (Negative); Urine Color Yellow; Urine Glucose Negative (Negative); Urine Ketones 1+ (Negative); Urine Nitrite Negative (Negative); Urine Protein 1+(30 mg/dL) (Negative); Urine Red Blood Cell 2+(6-10/hpf) (Absent); Urine Squamous Epithelial Cell Present (Absent); Urine Urobilinogen Negative (Negative); Urine White Blood Cell Trace(0-5/hpf) (Absent)
--- NOTE | 2018-12-04 15:22 | HP ---
CC: Dr. Royal* [facility] MEDICINE HISTORY AND PHYSICAL: DATE OF ADMISSION: 12/04/18 PRIMARY CARE PHYSICIAN: Dr. Royal. ATTENDING PHYSICIAN: Dr. Blair Friedman * (dictation provided by Jonathan Snyder NP). CHIEF COMPLAINT: Back pain. HISTORY OF PRESENT ILLNESS: Mr. Bonilla is a 78-year-old male with a past medical history of a prolonged admission in May 2017 for diffuse epidural abscesses with cellulitis/phlegmon of the paraspinal musculature as well as septic arthritis to the shoulder and knee with MSSA bacteremia, who presents today to the hospital with concern for back pain. Mr. Bonilla states that since he was discharged from our hospital in May 2017, he spent about a month at [facility] where he recovered from his prolonged 2-month hospitalization and multiple surgeries. The patient has been able to return home and return to independent living and resume his life. The patient states in recent weeks, he has been developing increasing back pain. Over the past 7 days, he has been limiting his activity more and more due to the back pain. Today, his grew concern because he did not want to leave the home because of the pain and therefore she decided to bring him to the emergency room for evaluation. The patient states the pain is diffuse. It radiates from his neck down to his low spine. There is no focal pain. It does not radiate into his legs or arms. He has had no fever. He states that standing and walking makes the pain worse, but lying down makes the pain better. He denies pain in the shoulders or knees. In the emergency room, Mr. Bonilla had labs, which showed no leukocytosis, an ESR of 4, and a CRP of less than 1. He had imaging including a chest x-ray, which showed no active cardiopulmonary disease noted; a scoliosis series x-ray, which showed multilevel degenerative disk disease only; and lumbar and thoracic spine CT, which showed multilevel degenerative disk disease noted with laminectomy at the L3 level, no compression fracture identified. Dr. Melendrez who had performed the patient's original surgeries last year was contacted and he recommends that the patient be observed in the hospital overnight for MRI imaging. PAST MEDICAL HISTORY: 1. 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 2. Hypertension. 3. Gout. 4. BPH. 5. History of a GI bleed. PAST SURGICAL HISTORY: Multiple joint replacements. MEDICATIONS: Outpatient are: 1. Tylenol 500 mg p.o. q. 8 hours. 2. Allopurinol 100 mg p.o. daily. 3. Ibuprofen 400 mg p.o. q.4 hours p.r.n. 4. Multivitamin 1 cap p.o. daily. 5. Probiotic 250 mg p.o. daily. 6. Sildenafil 50 mg p.o. daily. 7. Amlodipine 10 mg p.o. daily. 8. Calcium polycarbophil 2 tabs p.o. b.i.d. 9. Cephalexin 500 mg p.o. b.i.d. 10. Finasteride 5 mg p.o. daily. 11. Lovastatin 20 mg p.o. daily. 12. Nebivolol 10 mg p.o. daily. 13. Nystatin topical powder 1 application topically b.i.d. 14. Tamsulosin 0.4 mg p.o. daily. 15. Thiamine 100 mg p.o. daily. 16. Trazodone 50 mg p.o. at bedtime. ALLERGIES: To AMOXICILLIN, CELECOXIB, and LATEX. FAMILY HISTORY: The patient reports that his mother related to a stroke at an elderly age and father at 49 from a heart attack. SOCIAL HISTORY: The patient quit smoking many many years ago. He drinks beer at night, but he states not to excess. No report of drug use. He lives with his , who is the healthcare proxy. REVIEW OF SYSTEMS: A 14-point review of systems was completed with Mr. Bonilla and all those not mentioned above were negative. PHYSICAL EXAMINATION GENERAL: Mr. Bonilla is lying in the bed. He is in no acute distress. He states when lying still and lying down, he has no back pain. VITAL SIGNS: Temperature 98.4, pulse rate 53, respiratory rate 16, O2 saturation 98% on room air, blood pressure 158/78. LUNGS: Clear to auscultation bilaterally with no accessory muscle use and good aeration. HEART: S1, S2. No murmur, rub, or gallop and regular. ABDOMEN: Soft, nontender with bowel sounds positive x4. EXTREMITIES: No cyanosis or edema. Palpation of the back does not produce pain. NEURO: He is alert. He is oriented x3. He moves all extremities equally. There is no facial asymmetry or focal weakness. Extraocular movements are intact. SKIN: Intact. DIAGNOSTIC STUDIES/LAB DATA: Sodium 136, potassium 3.8, chloride 102, serum bicarbonate 27, BUN 19, creatinine 0.99, glucose 96, lactic acid 0.8. Troponin 0.03. CRP less than 1. WBC 6.1, hemoglobin 16.0, hematocrit 47, platelet count 114, ESR 4. The imaging studies are as read in the HPI. ASSESSMENT AND PLAN: Mr. Bonilla is a 78-year-old male with an unfortunate past medical history of multilevel epidural abscesses with paraspinal phlegmon, cellulitis, shoulder septic arthritis and knee septic arthritis with methicillin - susceptible Staphylococcus aureus bacteremia in May 2017, who presents today with back pain. Our plans are for observation in the hospital for the followin. Back pain. It is reassuring that the patient's CRP, ESR, and white blood cell count are negative. He has no fever. He is otherwise stable. However, given his extensive past medical history, it is appropriate to place him on observation in the hospital so we can obtain MRI imaging as is recommended by Dr. Melendrez, the neurosurgeon. The patient will have pain medications p.r.n. for pain. I will order physical therapy and a consult with Dr. Melendrez has been ordered as well. 2. Hypertension. Continue home medications of nebivolol and amlodipine. 3. Hyperlipidemia. Continue lovastatin. 4. Code status is full code. This was reviewed with him and his at the bedside. TIME SPENT: Approximately 60 minutes was spent on the admission of this patient , more than half the time was spent with the patient at the bedside reviewing the events leading up to this hospitalization, performing the physical examination, and reviewing my plan of care. JONATHAN SNYDER NP [id number]/[facility] #: [id number] JOCELYN
[2018-12-04] MEDS: Heparin VIAL(*) 5000 UNITS/ML VIAL (FIVE THOUSAND) SUBCUT SCH ×2 (16:47→21:46)
[2018-12-04] MEDS: Calcium Polycarbophil TAB* 625 MG PO SCH (21:43)
[2018-12-04] MEDS: traZODone TAB* 100 MG PO SCH (21:43)
[2018-12-04] MEDS: Cephalexin CAP* 500 MG PO SCH (21:43)
[2018-12-04] MEDS: Nystatin TOP POWDER* 15 GM BTL TOPICAL SCH ×2 (21:44→21:45)
--- NOTE | 2018-12-05 00:14 | CONS ---
CONSULTATION NOTE: DATE OF CONSULT: 12/04/18 HISTORY OF PRESENT ILLNESS: The patient is a very pleasant 78-year-old gentleman with a past medical history of holospinal epidural abscess who is status post multilevel hip laminectomies and multiple abrasions in the shoulder and knee with septic arthritis and MSSA bacteremia. The patient had done extremely well after his previous surgery. He spent 6 weeks in rehabilitation facility and then he had significant improvement of his condition. He was able to return home and be able to ambulate, drive his car, and resume his life. Apparently, he has been having some increasing back pain over the last several weeks. Over the last 7 days, the pain has increased quite significantly. The pain is in the whole spine from almost mid thoracic down to his lumbar spine without radiation to the lower extremities. The patient reports he has no weakness, numbness, or tingling of his extremities. He is able to ambulate without significant difficulties. He denies any urinary or GI incontinence. The patient denies any recent fever or any viral illnesses. Because of his previous history, the patient and his were very concerned and brought the patient to the emergency room. 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 He is and lives with his . PAST MEDICAL HISTORY: Holospinal abscess, septic arthritis, shoulder and knee, hypertension, gout, BPH, GI bleed. PAST SURGICAL HISTORY: Multiple joint replacements, epidural abscess evacuation. MEDICATIONS: The patient is on: 1. Tylenol. 2. Allopurinol. 3. Ibuprofen. 4. Multivitamin. 5. Probiotics. 6. Sildenafil. 7. Amlodipine. 8. Calcium. 9. Cephalexin. 10. Finasteride. 11. Lovastatin. 12. Labetalol. 13. Nebivolol. 14. Nystatin. 15. Tamsulosin. 16. Thiamine. 17. Trazodone. ALLERGIES: AMOXICILLIN, CELECOXIB, and LATEX. FAMILY HISTORY: Mother - stroke, father - heart attack. SOCIAL HISTORY: The patient used to smoke, but quit smoking several years ago. Alcohol, a beer at night. Recreational drug use, negative. PHYSICAL EXAM: The patient is not in any acute distress. He is able to ambulate. His wound is soft and dry, healing very well. He has no tenderness to the upper cervical, thoracic or lumbar spine. He has free range of motion of cervical spine. He is awake, alert, oriented x3. His pupils are equal and reactive. Cranial nerves II through XII are grossly intact. Motor 4-5/5 in all extremities. Sensory grossly intact to light touch. Deep tendon reflexes + 1 bilaterally. No clonus. No Babinski. Anabell's negative. Straight leg raise test negative in the sitting position. The patient has some mild stiffness in the lower extremities, not clear it is related to poor cooperation. DIAGNOSTIC STUDIES/LAB DATA: The patient had a CT scan of the thoracic spine, revealed degenerative disease without evidence of fracture or subluxation. Mild postoperative change as expected. The patient had CT scan of the lumbar spine revealing similar findings of degenerative disc disease without evidence of fracture or subluxation with possible changes as expected. The patient had scoliosis x-ray that revealed good alignment in the coronal plane and in the sides of plane, there is significant thoracic kyphosis, unfortunately the cervical thoracic junction was not very well visualized. Overall, there is no significant change compared to the previous study from 11/07/18. ASSESSMENT: The patient is a very pleasant 78-year-old female with complaints of back pain, he has a history of holospinal abscess status post evacuation and multiple shoulder and knee surgeries, septic arthritis, comes in for methicillin - susceptible Staphylococcus aureus. PLAN: The patient was currently admitted to the hospital by the hospitalist team. His lab work did not reveal any evidence of infection. His white count is 6.1. His CRP is less than 1 and sed rate is 4. Because of his previous history and the presence of significant pain especially when he is standing up, relieved when he is lying down, we would like to obtain an MRI of his thoracic and lumbar spine and progress with cervical spine if needed. If there is an abnormality in cervico-thoracic junction, repeat a thoracic MRI as well as we will recommend to repeat the lateral upright spine scoliosis x-ray with attention to the cervicothoracic junction and evaluate his progress. Thank you for allowing us to participate in the care of this patient. Please do not hesitate to contact our office in case you have any further questions or concerns regarding the care of this patient. [id number]/[facility] #: [id number] MTDD
[2018-12-05] MEDS: Heparin VIAL(*) 5000 UNITS/ML VIAL (FIVE THOUSAND) SUBCUT SCH ×3 (07:16→21:25)
--- NOTE | 2018-12-05 08:07 | PN ---
Subjective Date of Service: 12/05/18 Interval History: HD 2 on 12-05 78 y/o M with PMH of holospinal abscess s/p evacuation, multiple joint septic arthritis, HTN, Gout, BPH presented with diffuse back pain for weeks. Suspicion of spinal infection No acute overnight events. VS stable; although ashly awaiting MRI Neurosurgery following NO leucocytosis. NOrmal CRP and ESR Complains of back pain starting from lower neck to low back No fever, weakness, incontinence or hx of heavy weight lifting Objective Active Medications: Acetaminophen (Tylenol Tab*) 650 mg PO Q6H PRN PRN Reason: PAIN - MILD Amlodipine Besylate (Norvasc Tab*) 10 mg PO DAILY [facility] Atorvastatin Calcium (Lipitor*) 5 mg PO DAILY [facility] Calcium Polycarbophil (Fibercon Tab*) 1,250 mg PO BID [facility] Last Admin: 12/04/18 21:43 Dose: 1,250 mg Cephalexin HCl (Keflex Cap*) 500 mg PO BID [facility] Last Admin: 12/04/18 21:43 Dose: 500 mg Heparin Sodium (Porcine) (Heparin Vial(*)) 5,000 units SUBCUT Q8HR [facility] Last Admin: 12/05/18 07:16 Dose: Not Given Influenza Virus Vaccine (Fluarix Quad [id number] Syr) 0.5 ml IM .ONCE ONE Stop: 12/05/18 09:01 Nebivolol (Bystolic Tab (Nf)) 10 mg PO DAILY [facility] Nystatin (Nystatin Top Powder*) 1 applic TOPICAL BID [facility] Last Admin: 12/04/18 21:45 Dose: Not Given Oxycodone/Acetaminophen (Percocet 5/325 Tab*) 1 tab PO Q4H PRN PRN Reason: PAIN - SEVERE Last Admin: 12/04/18 23:10 Dose: 1 tab Tamsulosin HCl (Flomax Cap*) 0.4 mg PO DAILY [facility] Thiamine HCl (Vitamin B-1 Tab*) 100 mg PO DAILY [facility] Tramadol HCl (Ultram*) 50 mg PO Q6H PRN PRN Reason: PAIN - MODERATE Last Admin: 12/04/18 16:46 Dose: 50 mg Trazodone HCl (Desyrel Tab*) 50 mg PO BEDTIME [facility] Last Admin: 12/04/18 21:43 Dose: 50 mg Vital Signs - 8 hr 12/05/18 12/05/18 12/05/18 00:12 02:16 04:00 Temperature 97.4 F 97.7 F Pulse Rate 45 51 Respiratory 16 16 18 Rate Blood Pressure 127/68 157/75 (mmHg) O2 Sat by Pulse 95 98 Oximetry Oxygen Devices in Use Now: None Exam: Patient is lying on abed with no acute distress. HEENT:Normocephalic and atraumatic Lungs: CLear with no added sounds Heart: S1/S2 heard with no murmur Abdomen: Soft, nondistended and nontender. Normal BS heard Extremities: No swelling Back: LInear incision from neck to lower spine. Could not appreciate tenderness. NO point tenderness Neuro: Alert, conscious and oriented. No motor or sensory deficit noted Result Diagrams: 12/04/18 09:52 12/04/18 09:52 Assess/Plan/Problems-Billing Assessment: 78 y/o M with PMH of holospinal abscess s/p evacuation, multiple joint septic arthritis, HTN, Gout, BPH presented with diffuse back pain for weeks. Suspicion of spinal infection - Patient Problems (1) Back pain Current Visit: Yes Status: Acute Code(s): M54.9 - DORSALGIA, UNSPECIFIED SNOMED Code(s): 386306944 Comment: Has h/o back pain for months; worsening for 2 weeks. -history of holospinal abscess s/p evacuation; concern for infection -Dr. Gutierrez aware; wants an MRI of spine -awaiting MRI -On observation (2) Gout Current Visit: No Status: Acute Code(s): M10.9 - GOUT, UNSPECIFIED SNOMED Code(s): 88690711 Comment: On allopurinol (3) HTN (hypertension) Current Visit: No Status: Acute Code(s): I10 - ESSENTIAL (PRIMARY) HYPERTENSION SNOMED Code(s): 64264396 Comment: - BP on higher side - Continue nebivolol 10mg daily and amlodipine 10mg daily. - normal renal function -If BP persistently high; will add lisinopril on discharge (4) DVT prophylaxis Current Visit: No Status: Acute Code(s): GEU2607 - SNOMED Code(s): 083371699 Comment: - SQ heparin. (5) Full code status Current Visit: No Status: Acute Code(s): Z78.9 - OTHER SPECIFIED HEALTH STATUS SNOMED Code(s): 367191131 Status and Disposition: Observation; awaiting MRI Attending: Manuel Rao Attestation Documenting Resident: John Gonzalez Supervising Physician: Freddy Rao Attestation: This service has been performed in part by a resident under the direction of a teaching physician.I, Freddy Rao, performed the service, or was physically present during the critical, or tariq portions of the service, furnished by the resident. I participated in the management of the patient.
[2018-12-05] MEDS ORDERED: chlorproMAZINE TAB* 25 MG PO SCH (09:00)
[2018-12-05] MEDS ORDERED: Influenza VAC *QUAD* 2019-20* 0.5 ML SYRINGE IM ONE (09:00)
[2018-12-05] MEDS: Thiamine TAB* 100 MG TAB PO SCH (09:38)
[2018-12-05] MEDS: amLODIPine TAB* 5 MG PO SCH (09:38)
[2018-12-05] MEDS: Calcium Polycarbophil TAB* 625 MG PO SCH ×2 (09:38→21:22)
[2018-12-05] MEDS: Atorvastatin* 10 MG TAB PO SCH (09:38)
[2018-12-05] MEDS: Cephalexin CAP* 500 MG PO SCH ×2 (09:38→21:23)
[2018-12-05] MEDS: Tamsulosin CAP* 0.4 MG PO SCH (09:38)
[2018-12-05] MEDS: CMCS:Nebivolol TAB (NF) 2.5 MG TAB PO SCH (09:39)
[2018-12-05] MEDS: Nystatin TOP POWDER* 15 GM BTL TOPICAL SCH ×2 (09:48→21:10)
[2018-12-05] MEDS ORDERED: LORazepam TAB(*) 0.5 MG PO ONE (14:46)
[2018-12-05] MEDS ORDERED: Lorazepam PYXIS KEY PRN (19:56)
[2018-12-05] MEDS ORDERED: Lorazepam PYXIS KEY ONE (20:00)
[2018-12-05] MEDS ORDERED: LORazepam INJ* 2 MG/ML 1 ML VIAL ONE (20:00)
--- NOTE | 2018-12-05 20:03 | PN ---
Progress Note - Progress Note Date of Service: 12/05/18 Note: No events ON Pain better controlled Ambulates, Tolerates PO well, Voids AAOx3 CN II-XII grossly intact Motor 4-5/5 Sensory grossly intact to light touch Awaiting MRI Pain control. Appreciate IM care. Armond Melendrez MD
[2018-12-05] MEDS: LORazepam INJ* 2 MG/ML 1 ML VIAL IV PUSH PRN ×2 (20:05→20:21)
[2018-12-05] MEDS: traZODone TAB* 100 MG PO SCH (21:24)
[2018-12-06] MEDS: Heparin VIAL(*) 5000 UNITS/ML VIAL (FIVE THOUSAND) SUBCUT SCH ×3 (05:57→21:06)
--- NOTE | 2018-12-06 06:43 | PN ---
Subjective Date of Service: 12/06/18 Interval History: HD 3 on 12-06 78 y/o M with PMH of holospinal abscess s/p evacuation, multiple joint septic arthritis, HTN, Gout, BPH presented with diffuse back pain for weeks. Suspicion of spinal infection; Overnight- couldnot complete MRI because of anxiety VS stable; ashly His back pain is somewhat improved than yesterday but is still there. NO other complaint at present Objective Active Medications: Acetaminophen (Tylenol Tab*) 650 mg PO Q6H PRN PRN Reason: PAIN - MILD Allopurinol (Zyloprim Tab*) 100 mg PO DAILY [facility] Amlodipine Besylate (Norvasc Tab*) 10 mg PO DAILY [facility] Last Admin: 12/05/18 09:38 Dose: 10 mg Atorvastatin Calcium (Lipitor*) 5 mg PO DAILY [facility] Last Admin: 12/05/18 09:38 Dose: 5 mg Calcium Polycarbophil (Fibercon Tab*) 1,250 mg PO BID [facility] Last Admin: 12/05/18 21:22 Dose: 1,250 mg Cephalexin HCl (Keflex Cap*) 500 mg PO BID [facility] Last Admin: 12/05/18 21:23 Dose: 500 mg Heparin Sodium (Porcine) (Heparin Vial(*)) 5,000 units SUBCUT Q8HR [facility] Last Admin: 12/06/18 05:57 Dose: Not Given Miscellaneous (Ativan Pyxis Urbina) 1 ea N/A .ATIVAN IV URBINA PRN PRN Reason: PYXIS URBINA Nebivolol (Bystolic Tab (Nf)) 10 mg PO DAILY [facility] Last Admin: 12/05/18 09:39 Dose: 10 mg Nystatin (Nystatin Top Powder*) 1 applic TOPICAL BID [facility] Last Admin: 12/05/18 21:10 Dose: Not Given Oxycodone/Acetaminophen (Percocet 5/325 Tab*) 1 tab PO Q4H PRN PRN Reason: PAIN - SEVERE Last Admin: 12/04/18 23:10 Dose: 1 tab Tamsulosin HCl (Flomax Cap*) 0.4 mg PO DAILY [facility] Last Admin: 12/05/18 09:38 Dose: 0.4 mg Thiamine HCl (Vitamin B-1 Tab*) 100 mg PO DAILY [facility] Last Admin: 12/05/18 09:38 Dose: 100 mg Tramadol HCl (Ultram*) 50 mg PO Q6H PRN PRN Reason: PAIN - MODERATE Last Admin: 12/04/18 16:46 Dose: 50 mg Trazodone HCl (Desyrel Tab*) 50 mg PO BEDTIME [facility] Last Admin: 12/05/18 21:24 Dose: 50 mg Vital Signs - 8 hr 12/06/18 12/06/18 00:15 03:51 Temperature 97.2 F 97.6 F Pulse Rate 54 48 Respiratory 18 20 Rate Blood Pressure 148/76 136/53 (mmHg) O2 Sat by Pulse 97 96 Oximetry Oxygen Devices in Use Now: None Exam: Patient is lying on abed with no acute distress. HEENT:Normocephalic and atraumatic Lungs: CLear with no added sounds Heart: S1/S2 heard with no murmur Abdomen: Soft, nondistended and nontender. Normal BS heard Extremities: No swelling Back: LInear incision from neck to lower spine. Could not appreciate tenderness. NO point tenderness Neuro: Alert, conscious and oriented. No motor or sensory deficit noted Result Diagrams: 12/04/18 09:52 12/04/18 09:52 Assess/Plan/Problems-Billing Assessment: 78 y/o M with PMH of holospinal abscess s/p evacuation, multiple joint septic arthritis, HTN, Gout, BPH presented with diffuse back pain for weeks. Suspicion of spinal infection - Patient Problems (1) Back pain Current Visit: Yes Status: Acute Code(s): M54.9 - DORSALGIA, UNSPECIFIED SNOMED Code(s): 912887123 Comment: Has h/o back pain for months; worsening for 2 weeks. -history of holospinal abscess s/p evacuation; concern for infection -Dr. Gutierrez aware; wants an MRI of spine -awaiting MRI- he could not do MRI yesterday because of claustrophobia even after ativan - He is scheduled for MRI tomorrow at 10:30 AM under anesthesia - NPO from midnight except sips of water(till 3 hr before surgery then npo) (2) Gout Current Visit: No Status: Acute Code(s): M10.9 - GOUT, UNSPECIFIED SNOMED Code(s): 48429391 Comment: On allopurinol (3) HTN (hypertension) Current Visit: No Status: Acute Code(s): I10 - ESSENTIAL (PRIMARY) HYPERTENSION SNOMED Code(s): 27193030 Comment: - BP controlled - Continue nebivolol 10mg daily and amlodipine 10mg daily. - normal renal function -If BP persistently high; will add lisinopril on discharge (4) DVT prophylaxis Current Visit: No Status: Acute Code(s): CYX7699 - SNOMED Code(s): 079844365 Comment: - SQ heparin. (5) Full code status Current Visit: No Status: Acute Code(s): Z78.9 - OTHER SPECIFIED HEALTH STATUS SNOMED Code(s): 069094721 Status and Disposition: Observation; awaiting MRI- jessica tomorrow at 10:30 under community board member: Manuel Rao Attestation Documenting Resident: John Gonzalez Supervising Physician: Freddy Rao Attestation: This service has been performed in part by a resident under the direction of a teaching physician.I, Freddy Rao, performed the service, or was physically present during the critical, or urbina portions of the service, furnished by the resident. I participated in the management of the patient.
[2018-12-06] MEDS: Nystatin TOP POWDER* 15 GM BTL TOPICAL SCH ×2 (08:37→21:04)
[2018-12-06] MEDS: Cephalexin CAP* 500 MG PO SCH ×2 (08:49→21:02)
[2018-12-06] MEDS: CMCS:Nebivolol TAB (NF) 2.5 MG TAB PO SCH (08:49)
[2018-12-06] MEDS: Thiamine TAB* 100 MG TAB PO SCH (08:49)
[2018-12-06] MEDS: Tamsulosin CAP* 0.4 MG PO SCH (08:49)
[2018-12-06] MEDS: amLODIPine TAB* 5 MG PO SCH (08:50)
[2018-12-06] MEDS: Calcium Polycarbophil TAB* 625 MG PO SCH ×2 (08:50→21:04)
[2018-12-06] MEDS: Atorvastatin* 10 MG TAB PO SCH (08:50)
[2018-12-06] MEDS: Allopurinol TAB* 100 MG PO SCH (08:50)
--- NOTE | 2018-12-06 13:19 | PN ---
Progress Note - Progress Note Date of Service: 12/06/18 Note: No events ON Pain is still better controlled Ambulates, Tolerates PO well, Voids AAOx3 CN II-XII grossly intact Motor 4-5/5 Sensory grossly intact to light touch Awaiting MRI, not able to have yesterday, patient has anxiety, claustrophobia. Sheduled for MRI tomorrow with anesthesia. Pain control. Appreciate IM care. Marcela Forrest
[2018-12-06] MEDS: traZODone TAB* 100 MG PO SCH (21:02)
[2018-12-07] MEDS: Heparin VIAL(*) 5000 UNITS/ML VIAL (FIVE THOUSAND) SUBCUT SCH ×2 (06:28→16:44)
[2018-12-07] MEDS: Calcium Polycarbophil TAB* 625 MG PO SCH (08:24)
[2018-12-07] MEDS: Thiamine TAB* 100 MG TAB PO SCH (08:24)
[2018-12-07] MEDS: Cephalexin CAP* 500 MG PO SCH (08:45)
[2018-12-07] MEDS: Allopurinol TAB* 100 MG PO SCH (08:45)
[2018-12-07] MEDS: amLODIPine TAB* 5 MG PO SCH (08:45)
[2018-12-07] MEDS: Tamsulosin CAP* 0.4 MG PO SCH (08:45)
[2018-12-07] MEDS: Atorvastatin* 10 MG TAB PO SCH (08:46)
[2018-12-07] MEDS: CMCS:Nebivolol TAB (NF) 2.5 MG TAB PO SCH (08:46)
[2018-12-07] MEDS: Nystatin TOP POWDER* 15 GM BTL TOPICAL SCH (09:48)
[2018-12-07] MEDS ORDERED: fentaNYL* 50 MCG/ML 2 ML VIAL (100 MCG VIAL) ONE (11:02)
[2018-12-07] MEDS ORDERED: Ondansetron INJ* 2 MG/ML VIAL ONE (11:02)
[2018-12-07] MEDS ORDERED: Lidocaine 2% PF * 5 ML VIAL ONE (11:02)
[2018-12-07] MEDS ORDERED: Dexamethasone IV* 4 MG/ML 1 ML (4 MG) ONE (11:02)
[2018-12-07] MEDS ORDERED: Propofol* 10 MG/ML 20 ML BTL ONE (11:02)
[2018-12-07] MEDS ORDERED: Midazolam* 1 MG/ML 5 ML VIAL (5 MG) ONE (11:02)
[2018-12-07] MEDS ORDERED: Gadoteridol* (CONTRAST) 279.3 MG/ML 10 ML IV ONE (13:39)
--- NOTE | 2018-12-07 16:51 | PN ---
Subjective Date of Service: 12/07/18 Interval History: HD 4 on 12-07 78 y/o M with PMH of holospinal abscess s/p evacuation, multiple joint septic arthritis, HTN, Gout, BPH presented with diffuse back pain for weeks. MRI negative for spinal infection but showed Lumbar stenosis. awaiting Lumbar Xray No overnight events VS stable Has mild back pain No other complaint Objective Active Medications: Acetaminophen (Tylenol Tab*) 650 mg PO Q6H PRN PRN Reason: PAIN - MILD Allopurinol (Zyloprim Tab*) 100 mg PO DAILY [facility] Last Admin: 12/07/18 08:45 Dose: 100 mg Amlodipine Besylate (Norvasc Tab*) 10 mg PO DAILY [facility] Last Admin: 12/07/18 08:45 Dose: 10 mg Atorvastatin Calcium (Lipitor*) 5 mg PO DAILY [facility] Last Admin: 12/07/18 08:46 Dose: 5 mg Calcium Polycarbophil (Fibercon Tab*) 1,250 mg PO BID [facility] Last Admin: 12/07/18 08:24 Dose: Not Given Cephalexin HCl (Keflex Cap*) 500 mg PO BID [facility] Last Admin: 12/07/18 08:45 Dose: 500 mg Miscellaneous (Ativan Pyxis Urbina) 1 ea N/A .ATIVAN IV URBINA PRN PRN Reason: PYXIS URBINA Nebivolol (Bystolic Tab (Nf)) 10 mg PO DAILY [facility] Last Admin: 12/07/18 08:46 Dose: 10 mg Nystatin (Nystatin Top Powder*) 1 applic TOPICAL BID [facility] Last Admin: 12/07/18 09:48 Dose: 1 applic Oxycodone/Acetaminophen (Percocet 5/325 Tab*) 1 tab PO Q4H PRN PRN Reason: PAIN - SEVERE Last Admin: 12/04/18 23:10 Dose: 1 tab Tamsulosin HCl (Flomax Cap*) 0.4 mg PO DAILY [facility] Last Admin: 12/07/18 08:45 Dose: 0.4 mg Thiamine HCl (Vitamin B-1 Tab*) 100 mg PO DAILY [facility] Last Admin: 12/07/18 08:24 Dose: Not Given Tramadol HCl (Ultram*) 50 mg PO Q6H PRN PRN Reason: PAIN - MODERATE Last Admin: 12/04/18 16:46 Dose: 50 mg Trazodone HCl (Desyrel Tab*) 50 mg PO BEDTIME [facility] Last Admin: 12/06/18 21:02 Dose: 50 mg Vital Signs - 8 hr 12/07/18 12/07/18 12/07/18 10:22 13:25 13:27 Temperature 98.1 F Pulse Rate 60 61 61 Respiratory 16 5 Rate Blood Pressure 170/90 105/58 (mmHg) O2 Sat by Pulse 98 95 94 Oximetry 12/07/18 12/07/18 12/07/18 13:30 13:36 13:41 Temperature 97.3 F Pulse Rate 58 60 Respiratory 16 14 14 Rate Blood Pressure 96/56 97/58 (mmHg) O2 Sat by Pulse 91 95 Oximetry 12/07/18 12/07/18 12/07/18 13:45 13:46 14:01 Temperature Pulse Rate 58 56 Respiratory 16 10 Rate Blood Pressure 109/62 (mmHg) O2 Sat by Pulse 96 95 Oximetry 12/07/18 14:16 Temperature 98.5 F Pulse Rate 55 Respiratory 18 Rate Blood Pressure 136/73 (mmHg) O2 Sat by Pulse 94 Oximetry Oxygen Devices in Use Now: Nasal Cannula Exam: Patient is lying on abed with no acute distress. HEENT:Normocephalic and atraumatic Lungs: CLear with no added sounds Heart: S1/S2 heard with no murmur Abdomen: Soft, nondistended and nontender. Normal BS heard Extremities: No swelling Back: LInear incision from neck to lower spine. Could not appreciate tenderness. No point tenderness Neuro: Alert, conscious and oriented. No motor or sensory deficit noted Result Diagrams: 12/04/18 09:52 12/04/18 09:52 Assess/Plan/Problems-Billing Assessment: 78 y/o M with PMH of holospinal abscess s/p evacuation, multiple joint septic arthritis, HTN, Gout, BPH presented with diffuse back pain for weeks. MRI negative for spinal infection but positive for lumbar stenosis. Awaiting Xray - Patient Problems (1) Back pain Current Visit: Yes Status: Acute Code(s): M54.9 - DORSALGIA, UNSPECIFIED SNOMED Code(s): 944650190 Comment: Has h/o back pain for months; worsening for 2 weeks. -history of holospinal abscess s/p evacuation; concern for infection -Dr. Gutierrez aware; wants an MRI of spine - MRI negative for spinal infection; positive for spinal stenosis -Awaiting Xray (2) Gout Current Visit: No Status: Acute Code(s): M10.9 - GOUT, UNSPECIFIED SNOMED Code(s): 33943484 Comment: On allopurinol (3) HTN (hypertension) Current Visit: No Status: Acute Code(s): I10 - ESSENTIAL (PRIMARY) HYPERTENSION SNOMED Code(s): 29196232 Comment: - BP controlled - Continue nebivolol 10mg daily and amlodipine 10mg daily. - normal renal function -If BP persistently high; will add lisinopril on discharge (4) DVT prophylaxis Current Visit: No Status: Acute Code(s): IZZ9265 - SNOMED Code(s): 162041593 Comment: - Ambulatory (5) Full code status Current Visit: No Status: Acute Code(s): Z78.9 - OTHER SPECIFIED HEALTH STATUS SNOMED Code(s): 433554364 Status and Disposition: Observation; MRI shows lumbar stenosis Awaiting MRI Attending: Manuel Rao Attestation Documenting Resident: John Gonzalez Supervising Physician: Freddy aRo Attestation: This service has been performed in part by a resident under the direction of a teaching physician.I, Freddy Rao, performed the service, or was physically present during the critical, or urbina portions of the service, furnished by the resident. I participated in the management of the patient.
[2018-12-07 20:45] VITALS: BP 142/83
--- NOTE | 2018-12-08 09:12 | DS ---
DISCHARGE SUMMARY: DATE OF ADMISSION: 12/04/18 DATE OF DISCHARGE: 12/07/18 PRIMARY DIAGNOSIS: Diffuse upper back pain in the setting of a history of holospinal epidural absces s. SECONDARY DIAGNOSES: 1. 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 2. History of shoulder septic arthritis with methicillin-susceptible Staphylococcus aureus bacterem ia in May 2017. 3. Hypertension. 4. Gout. 5. Benign prostatic hypertrophy. 6. History of gastrointestinal bleed. 7. History of colon cancer, status post colectomy. MEDICATIONS ON DISCHARGE: 1. Acetaminophen 500 mg p.o. q.8 hours p.r.n. pain. 2. Allopurinol 100 mg p.o. q. day. 3. Amlodipine 10 mg p.o. q. day. 4. Calcium polycarbophil 625 mg 2 tab p.o. b.i.d. 5. Cephalexin 500 mg p.o. b.i.d. chronically. 6. Finasteride 5 mg p.o. q. day. 7. Ibuprofen 400 mg p.o. q.4 hours p.r.n. pain or fever. 8. Lovastatin 20 mg p.o. q.p.m. 9. Nebivolol 10 mg p.o. q. day. 10. Nystatin powder topically to the affected areas daily as needed. 11. Probiotics 1 tab p.o. q. day. 12. Tamsulosin 0.4 mg p.o. q. day. 13. Trazodone 50 mg p.o. at bedtime. 14. Multivitamin 1 tab p.o. q. day. 15. Thiamine 100 mg p.o. q. day. HOSPITAL COURSE: A 78-year-old man with history of holospinal epidural abscess, status post incision , drainage, exploration of the entire cervical, thoracic, and lumbar spine 2 years ago, who was admit brandi with recurrence of diffuse back pain in the area of previous surgery. The pain was described renetta iously as tingling and worsening with activity. Because of previous presentation that was atypical, the patient was admitted to the hospital for observation, MRI of the spine, and neurosurgery consulta tion. The patient was seen by Dr. Melendrez of Neurosurgery on 12/04/18 and he reviewed the initial CT of the thoracic and lumbar spine from that same day, which showed multilevel disk disease and ignacio inectomy at the L3 level as well as various other degenerative disk and arthritic problems in the [facility] spine. The patient on 12/06/18 had an attempted MRI where he became claustrophobic and could n ot complete the test. This was after 2 rounds of benzodiazepines for anxiety. The patient on had an MRI of the cervical, thoracic, and lumbar spine under anesthesia, conscious sedation. The MRI findings were no appreciable epidural fluid collection to suggest abscess, no irregular enhanceme nt to suggest osteo or diskitis, and multiple degenerative changes. There is a moderate to severe na rrowing of the central canal at L2-L3 and L4-L5 consistent with spinal stenosis in the lumbar region. Dr. Melendrez asked that flexion and extension lumbar films be obtained to further investigate the lumbar stenosis. Dr. Melendrez reviewed these images prior to discharge and advised the patient to see him in followup in his office. LABORATORY DATA: Laboratory tests of note during the hospital stay included a white count of 6.1, pl atelet count of 114, sedimentation rate of 4, normal coagulation studies, CRP of less than 1, normal LFTs. Urinalysis showed 1+ protein, 1+ ketones, 2+ red cells, 0 white cells. Urine culture is negat allyssa to date. The patient had blood cultures x2 on admission that are negative after 3 days of cultur e. STATUS: Inpatient. CONDITION: Stable. DISPOSITION: Home. FOLLOWUP: Follow up with Dr. Melgoza within 4 to 5 days. Also, follow up with Dr. Melendrez within 1 to 2 weeks. DIET: Low-salt. ACTIVITY: As tolerated. [id number]/[facility] #: [id number]
== END 2018-12-07 19:26 | disposition home or self-care (01) ==
LOC: ED 09:06 → MED 13:38
PROVIDERS: ADMIT Internal Medicine; ATTEND Internal Medicine
DX: M54.9 Dorsalgia, unspecified (principal); M10.9 Gout, unspecified; I10 Essential (primary) hypertension; N40.0 Benign prostatic hyperplasia without lower urinary tract symptoms; E78.5 Hyperlipidemia, unspecified; K92.2 Gastrointestinal hemorrhage, unspecified; Z79.899 Other long term (current) drug therapy; Z86.14 Personal history of Methicillin resistant Staphylococcus aureus infection; Z85.038 Personal history of other malignant neoplasm of large intestine; Z87.891 Personal history of nicotine dependence; E78.00 Pure hypercholesterolemia, unspecified; Z79.01 Long term (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 of anticoagulants
CPT/HCPCS: 36415; 71046; 72081; 72114; 72128; 72131; 72156; 72158; 80053; 81003; 81015; 83605; 84484; 85025; 85610; 85652; 85730; 86140; 87040; 87086; 90471; 90686; 96372; 96374; 96375; 96376; 99284; A9270-GY; A9579; G0008; G0378; G8978-GP-CH; G8979-GP-CH; G8980-GP-CH; J1100; J1644; J1885; J2060; J2250; J2270; J2405; J2704; J3010

== ENCOUNTER 2021-07-02 11:08 | Inpatient (IN) ==
[2021-07-02 14:53] LABS: ABS Eosinophils 0.1 10^3/ul (0-0.6); ABS Lymphocytes 0.6 10^3/ul (1.0-4.8); ABS Monocytes 0.6 10^3/ul (0-0.8); ABS Neutrophils 5.4 10^3/ul (1.5-7.7); Eosinophil % 1.2 %; Hematocrit 37 % (42-52); Hemoglobin 11.9 g/dL (14.0-18.0); Lymphocyte % 9.4 %; Mean Corpuscular HGB Conc 32 g/dL (31-36); Mean Corpuscular Hemoglobin 27 pg (27-31); Mean Corpuscular Volume 84 fL (80-94); Mean Platelet Volume 7.8 fL (7.4-10.4); Nucleated Red Blood Cells % 0.1; Platelet Count 154 10^3/uL (150-450); Red Blood Count 4.39 10^6 /uL (4.18-5.48); Red Cell Distribution Width 17 % (10-15); White Blood Count 6.7 10^3/uL (3.5-10.8)
[2021-07-02 15:33] LABS: Albumin 4.1 g/dL (3.2-5.2); Albumin/Globulin Ratio 1.6 (1-3); C Reactive Protein 20.36 mg/L (<8.01); Calcium 8.9 mg/dL (8.6-10.3); Globulin 2.6 g/dL (2-4); Potassium 3.8 mmol/L (3.5-5.0); Total Bilirubin 0.6 mg/dL (0.2-1.0); Total Protein 6.7 g/dL (6.4-8.9); eGFR CKD-EPI 93.7 (>60)
[2021-07-02 18:10] LABS: Erythrocyte Sed Rate 67 mm/Hr (0-19)
[2021-07-02] MEDS ORDERED: Iohexol 300 (CONTRAST) 10 ML SDV IV ONE (18:55)
[2021-07-02] MEDS ORDERED: Cefepime 2 GM in Dextrose 2 GM/50 ML BAG IV ONE (20:20)
[2021-07-02] MEDS ORDERED: Vancomycin 1,250 MG in NS 0.9% 250 ml 250 ML IVPB ONE (22:00)
[2021-07-03] MEDS ORDERED: NEBIVOLOL 20 MG PO ONE (01:09)
[2021-07-03] MEDS ORDERED: Nebivolol 2.5 mg TAB (NF) PO ONE (02:30)
[2021-07-03] MEDS ORDERED: Cefepime 2 GM in Dextrose 2 GM/50 ML BAG IV ONE (07:29)
[2021-07-03] MEDS ORDERED: Vancomycin 1,250 MG in NS 0.9% 250 ml 250 ML IVPB ONE (08:00)
[2021-07-03] MEDS ORDERED: Lactated Ringers 1000 ml BAG 1,000 ML IV SCH (09:00)
[2021-07-03 14:30] LABS: ABS Eosinophils 0.1 10^3/ul (0-0.6); ABS Lymphocytes 0.6 10^3/ul (1.0-4.8); ABS Monocytes 0.5 10^3/ul (0-0.8); ABS Neutrophils 5.2 10^3/ul (1.5-7.7); Eosinophil % 1.3 %; Hematocrit 39 % (42-52); Hemoglobin 12.8 g/dL (14.0-18.0); Lymphocyte % 9.6 %; Mean Corpuscular HGB Conc 33 g/dL (31-36); Mean Corpuscular Hemoglobin 27 pg (27-31); Mean Corpuscular Volume 83 fL (80-94); Mean Platelet Volume 7.7 fL (7.4-10.4); Platelet Count 156 10^3/uL (150-450); Red Blood Count 4.74 10^6 /uL (4.18-5.48); Red Cell Distribution Width 17 % (10-15); White Blood Count 6.4 10^3/uL (3.5-10.8)
[2021-07-03 15:13] LABS: Calcium 9.1 mg/dL (8.6-10.3); Potassium 3.7 mmol/L (3.5-5.0); eGFR CKD-EPI 94.1 (>60)
[2021-07-03] MEDS ORDERED: Vancomycin per Pharmacy 1 EA NOTE FOLLOW UP SCH (17:00)
[2021-07-03 17:09] LABS: Albumin 4.2 g/dL (3.2-5.2); Albumin/Globulin Ratio 1.6 (1-3); Globulin 2.7 g/dL (2-4); Total Bilirubin 0.9 mg/dL (0.2-1.0); Total Protein 6.9 g/dL (6.4-8.9)
[2021-07-03] MEDS ORDERED: Nebivolol 2.5 mg TAB (NF) PO SCH (21:00)
[2021-07-03] MEDS: cefTRIAXone 1 gm/50 mL D5W 1 GM/50 ML BAG IV SCH (21:11)
[2021-07-03] MEDS ORDERED: Heparin 5000 UNITS/ML 1 mL VIAL SUBCUT SCH (22:00)
[2021-07-03] MEDS: Vancomycin 1,250 MG in NS 0.9% 250 ml 250 ML IVPB SCH (22:01)
[2021-07-03] MEDS: CMCS: Lovastatin 10 mg TAB (NF) PO SCH (22:04)
[2021-07-04 06:15] LABS: Hematocrit 35 % (42-52); Hemoglobin 11.6 g/dL (14.0-18.0); Mean Corpuscular HGB Conc 33 g/dL (31-36); Mean Corpuscular Hemoglobin 28 pg (27-31); Mean Corpuscular Volume 83 fL (80-94); Mean Platelet Volume 7.5 fL (7.4-10.4); Platelet Count 163 10^3/uL (150-450); Red Blood Count 4.22 10^6 /uL (4.18-5.48); Red Cell Distribution Width 17 % (10-15); White Blood Count 6.3 10^3/uL (3.5-10.8)
[2021-07-04 06:30] LABS: ABS Eosinophils 0.2 10^3/ul (0-0.6); ABS Lymphocytes 0.8 10^3/ul (1.0-4.8); ABS Monocytes 0.7 10^3/ul (0-0.8); ABS Neutrophils 4.6 10^3/ul (1.5-7.7); Eosinophil % 2.5 %; Lymphocyte % 12.9 %
[2021-07-04] MEDS ORDERED: Vancomycin Trough Check NOTE FOLLOW UP ONE (08:30)
[2021-07-04 09:39] LABS: Erythrocyte Sed Rate 64 mm/Hr (0-19)
[2021-07-04] MEDS: Vancomycin 1,250 MG in NS 0.9% 250 ml 250 ML IVPB SCH (10:08)
[2021-07-04] MEDS ORDERED: Remifentanil 2 MG VIAL ONE (13:59)
[2021-07-04] MEDS ORDERED: Rocuronium 50 mg VIAL 10 mg/ml 5 ml VIAL (50 mg) ONE (14:48)
[2021-07-04] MEDS ORDERED: Ondansetron 4 mg VIAL 2 MG/ML 2 ml VIAL ONE (14:48)
[2021-07-04] MEDS ORDERED: fentaNYL 100 mcg/2 ml 50 MCG/ML VIAL ONE (14:48)
[2021-07-04] MEDS ORDERED: Midazolam 2 mg/2 ml VIAL 1 mg/ml 2 ml VIAL (2 mg) ONE (14:48)
[2021-07-04] MEDS ORDERED: Dexamethasone IV 4 MG/ML VIAL 1 ml VIAL ONE (14:48)
[2021-07-04] MEDS ORDERED: Propofol 10 MG/ML 20 ML BTL ONE (14:48)
[2021-07-04] MEDS ORDERED: Bupivacaine 0.5% W/EPI SDV 10 ML VIAL INJ ONE (16:22)
[2021-07-04] MEDS ORDERED: EPHEDrine (Pressors) 50 MG/ML VIAL ONE (16:41)
[2021-07-04] MEDS ORDERED: HYDROmorphone 0.5 MG/0.5 ML SYRINGE ONE (17:35)
[2021-07-04] MEDS ORDERED: Metoclopramide 5 MG/ML VIAL (10 mg) IV PRN (18:07)
[2021-07-04] MEDS ORDERED: Ondansetron 4 mg VIAL 2 MG/ML 2 ml VIAL IV PRN (18:07)
[2021-07-04] MEDS ORDERED: Naloxone 0.4 mg VIAL 0.4 mg/ml 1 ml VIAL IV PRN (18:07)
[2021-07-04 19:51] LABS: Hematocrit 36 % (42-52); Hemoglobin 11.7 g/dL (14.0-18.0); Mean Corpuscular HGB Conc 32 g/dL (31-36); Mean Corpuscular Hemoglobin 27 pg (27-31); Mean Corpuscular Volume 84 fL (80-94); Mean Platelet Volume 7.9 fL (7.4-10.4); Platelet Count 146 10^3/uL (150-450); Red Cell Distribution Width 17 % (10-15); White Blood Count 10.6 10^3/uL (3.5-10.8)
[2021-07-04 20:16] LABS: Calcium 8.8 mg/dL (8.6-10.3); Potassium 3.6 mmol/L (3.5-5.0); Vancomycin Trough 13.5 mcg/mL; eGFR CKD-EPI 90.4 (>60)
[2021-07-04] MEDS: cefTRIAXone 1 gm/50 mL D5W 1 GM/50 ML BAG IV SCH (21:05)
[2021-07-04] MEDS: CMCS:Nebivolol 2.5 mg TAB (NF) PO SCH (21:08)
[2021-07-04] MEDS: CMCS: Lovastatin 10 mg TAB (NF) PO SCH (21:09)
[2021-07-04] MEDS: Vancomycin 1,500 MG in NS 0.9% 250 ml 250 ML IVPB SCH (22:34)
[2021-07-05 07:50] LABS: Hematocrit 34 % (42-52); Hemoglobin 11.1 g/dL (14.0-18.0); Mean Corpuscular HGB Conc 33 g/dL (31-36); Mean Corpuscular Hemoglobin 27 pg (27-31); Mean Corpuscular Volume 84 fL (80-94); Mean Platelet Volume 7.4 fL (7.4-10.4); Platelet Count 174 10^3/uL (150-450); Red Blood Count 4.09 10^6 /uL (4.18-5.48); Red Cell Distribution Width 17 % (10-15); White Blood Count 8.8 10^3/uL (3.5-10.8)
[2021-07-05 08:22] LABS: Calcium 8.8 mg/dL (8.6-10.3); eGFR CKD-EPI 90.7 (>60)
[2021-07-05] MEDS: Enoxaparin 40 MG/0.4 ML SYR SUBCUT SCH (09:18)
[2021-07-05] MEDS: Vancomycin 1,500 MG in NS 0.9% 250 ml 250 ML IVPB SCH (09:19)
[2021-07-05] MEDS: ceFAZolin 2 GM in NS PREMIX 2 GM/100 ML BAG IVPB SCH ×2 (10:45→18:14)
[2021-07-05] MEDS ORDERED: Senna TAB 8.6 mg TAB PO PRN (16:21)
[2021-07-05] MEDS: CMCS: Lovastatin 10 mg TAB (NF) PO SCH (20:50)
[2021-07-05] MEDS: CMCS:Nebivolol 2.5 mg TAB (NF) PO SCH (20:52)
[2021-07-06] MEDS: ceFAZolin 2 GM in NS PREMIX 2 GM/100 ML BAG IVPB SCH ×3 (02:25→18:04)
[2021-07-06] MEDS: Enoxaparin 40 MG/0.4 ML SYR SUBCUT SCH (08:33)
[2021-07-06] MEDS: CMCS:Nebivolol 2.5 mg TAB (NF) PO SCH (20:54)
[2021-07-06] MEDS: CMCS: Lovastatin 10 mg TAB (NF) PO SCH (20:56)
[2021-07-07] MEDS: ceFAZolin 2 GM in NS PREMIX 2 GM/100 ML BAG IVPB SCH ×4 (02:03→23:43)
[2021-07-07 05:52] LABS: ABS Eosinophils 0.1 10^3/ul (0-0.6); ABS Lymphocytes 0.8 10^3/ul (1.0-4.8); ABS Monocytes 0.7 10^3/ul (0-0.8); ABS Neutrophils 4.6 10^3/ul (1.5-7.7); Eosinophil % 1.4 %; Hematocrit 31 % (42-52); Hemoglobin 10.1 g/dL (14.0-18.0); Lymphocyte % 12.3 %; Mean Corpuscular HGB Conc 33 g/dL (31-36); Mean Corpuscular Hemoglobin 28 pg (27-31); Mean Corpuscular Volume 84 fL (80-94); Platelet Count 158 10^3/uL (150-450); Red Blood Count 3.68 10^6 /uL (4.18-5.48); Red Cell Distribution Width 18 % (10-15); White Blood Count 6.2 10^3/uL (3.5-10.8)
[2021-07-07 06:13] LABS: Calcium 8.3 mg/dL (8.6-10.3); Magnesium 1.7 mg/dL (1.9-2.7); Potassium 3.8 mmol/L (3.5-5.0)
[2021-07-07] MEDS: Enoxaparin 40 MG/0.4 ML SYR SUBCUT SCH (08:03)
[2021-07-07] MEDS ORDERED: Vancomycin Trough Check NOTE FOLLOW UP ONE (08:30)
[2021-07-07] MEDS ORDERED: Dexamethasone IV 4 MG/ML VIAL 1 ml VIAL ONE (14:12)
[2021-07-07] MEDS ORDERED: Propofol 10 MG/ML 20 ML BTL ONE (14:12)
[2021-07-07] MEDS ORDERED: Ondansetron 4 mg VIAL 2 MG/ML 2 ml VIAL ONE (14:12)
[2021-07-07] MEDS ORDERED: Rocuronium 50 mg VIAL 10 mg/ml 5 ml VIAL (50 mg) ONE (14:12)
[2021-07-07] MEDS ORDERED: fentaNYL 250 mcg/5 ml 50 MCG/ML 5 ml VIAL (250 MCG) ONE (14:12)
[2021-07-07] MEDS ORDERED: ROPIVACAINE 5 MG/ML 30 ML BTL (0.5%) ONE (14:23)
[2021-07-07] MEDS ORDERED: ceFAZolin 2 GM in NS PREMIX 2 GM/100 ML BAG IVPB ONE (14:32)
[2021-07-07] MEDS ORDERED: EPHEDrine (Pressors) 50 MG/ML VIAL ONE (15:13)
[2021-07-07] MEDS ORDERED: Vancomycin 1,000 MG VIAL ONE (17:21)
[2021-07-07] MEDS ORDERED: Phenylephrine IV 10 MG/ML 1 ml VIAL ONE (17:33)
[2021-07-07] MEDS ORDERED: Naloxone 0.4 mg VIAL 0.4 mg/ml 1 ml VIAL IV PRN (19:17)
[2021-07-07] MEDS ORDERED: Prochlorperazine 5 mg/ml 2 ml VIAL (10 mg) IV PRN (19:17)
[2021-07-07] MEDS ORDERED: HYDROmorphone 1 MG/1 ML SYRINGE IV PRN (19:17)
[2021-07-07] MEDS: CMCS:Nebivolol 2.5 mg TAB (NF) PO SCH (21:12)
[2021-07-07] MEDS: CMCS: Lovastatin 10 mg TAB (NF) PO SCH (21:12)
[2021-07-07 23:42] LABS: ABS Lymphocytes 0.4 10^3/ul (1.0-4.8); ABS Monocytes 0.8 10^3/ul (0-0.8); ABS Neutrophils 9.5 10^3/ul (1.5-7.7); Hematocrit 26 % (42-52); Hemoglobin 8.6 g/dL (14.0-18.0); Lymphocyte % 3.9 %; Mean Corpuscular HGB Conc 33 g/dL (31-36); Mean Corpuscular Hemoglobin 27 pg (27-31); Mean Corpuscular Volume 84 fL (80-94); Mean Platelet Volume 7.7 fL (7.4-10.4); Platelet Count 156 10^3/uL (150-450); Red Blood Count 3.14 10^6 /uL (4.18-5.48); Red Cell Distribution Width 17 % (10-15); White Blood Count 10.8 10^3/uL (3.5-10.8)
[2021-07-08 00:03] LABS: Calcium 7.7 mg/dL (8.6-10.3)
[2021-07-08 05:18] LABS: Mean Platelet Volume 8.1 fL (7.4-10.4); Platelet Count 151 10^3/uL (150-450)
[2021-07-08 05:46] LABS: Calcium 7.6 mg/dL (8.6-10.3); Potassium 4.2 mmol/L (3.5-5.0); eGFR CKD-EPI 87.2 (>60)
[2021-07-08] MEDS: ceFAZolin 2 GM in NS PREMIX 2 GM/100 ML BAG IVPB SCH (07:18)
[2021-07-08 08:49] LABS: Hematocrit 25 % (42-52); Hemoglobin 8.1 g/dL (14.0-18.0)
[2021-07-08] MEDS ORDERED: Magnesium Sulfate 2 gm BAG 2 GM/50 ML BAG IVPB ONE (09:40)
[2021-07-08] MEDS ORDERED: Enoxaparin 40 MG/0.4 ML SYR SUBCUT SCH (12:00)
[2021-07-08] MEDS: Oxacillin 2 GM in NS 0.9% 100 ml BAG 100 ML IVPB SCH ×3 (12:51→19:56)
[2021-07-08] MEDS ORDERED: NS 0.9% 100 ml BAG 100 ML ONE (19:50)
[2021-07-08] MEDS: CMCS: Lovastatin 10 mg TAB (NF) PO SCH (19:56)
[2021-07-08] MEDS: CMCS:Nebivolol 2.5 mg TAB (NF) PO SCH (19:56)
[2021-07-09] MEDS: Oxacillin 2 GM in NS 0.9% 100 ml BAG 100 ML IVPB SCH ×6 (00:55→21:22)
[2021-07-09 05:01] LABS: Hematocrit 21 % (42-52); Mean Corpuscular HGB Conc 33 g/dL (31-36); Mean Corpuscular Hemoglobin 28 pg (27-31); Mean Corpuscular Volume 84 fL (80-94); Mean Platelet Volume 8.2 fL (7.4-10.4); Platelet Count 147 10^3/uL (150-450); Red Blood Count 2.53 10^6 /uL (4.18-5.48); Red Cell Distribution Width 17 % (10-15); White Blood Count 7.3 10^3/uL (3.5-10.8)
[2021-07-09 05:21] LABS: Calcium 7.5 mg/dL (8.6-10.3); Potassium 3.5 mmol/L (3.5-5.0); eGFR CKD-EPI 88.1 (>60)
[2021-07-09 10:35] LABS: Hematocrit 23 % (42-52); Hemoglobin 7.3 g/dL (14.0-18.0)
[2021-07-09] MEDS: CMCS: Lovastatin 10 mg TAB (NF) PO SCH (21:22)
[2021-07-09] MEDS: CMCS:Nebivolol 2.5 mg TAB (NF) PO SCH (21:22)
[2021-07-10] MEDS: Oxacillin 2 GM in NS 0.9% 100 ml BAG 100 ML IVPB SCH ×6 (00:30→20:49)
[2021-07-10 05:05] LABS: Hematocrit 20 % (42-52); Hemoglobin 6.4 g/dL (14.0-18.0); Mean Corpuscular HGB Conc 32 g/dL (31-36); Mean Corpuscular Hemoglobin 28 pg (27-31); Mean Corpuscular Volume 86 fL (80-94); Mean Platelet Volume 7.9 fL (7.4-10.4); Platelet Count 152 10^3/uL (150-450); Red Blood Count 2.33 10^6 /uL (4.18-5.48); Red Cell Distribution Width 17 % (10-15); White Blood Count 6.5 10^3/uL (3.5-10.8)
[2021-07-10] MEDS: Polyethylene Glycol 3350 17 GM PACKET PO PRN (07:59)
[2021-07-10] MEDS: CMCS:Nebivolol 2.5 mg TAB (NF) PO SCH (20:39)
[2021-07-10] MEDS: CMCS: Lovastatin 10 mg TAB (NF) PO SCH (20:41)
[2021-07-10 21:18] LABS: Hematocrit 23 % (42-52); Hemoglobin 7.2 g/dL (14.0-18.0)
[2021-07-11] MEDS: Oxacillin 2 GM in NS 0.9% 100 ml BAG 100 ML IVPB SCH ×6 (01:52→21:25)
[2021-07-11 05:29] LABS: Hematocrit 23 % (42-52); Hemoglobin 7.6 g/dL (14.0-18.0); Mean Corpuscular HGB Conc 33 g/dL (31-36); Mean Corpuscular Hemoglobin 28 pg (27-31); Mean Corpuscular Volume 84 fL (80-94); Mean Platelet Volume 7.8 fL (7.4-10.4); Platelet Count 190 10^3/uL (150-450); Red Blood Count 2.75 10^6 /uL (4.18-5.48); Red Cell Distribution Width 17 % (10-15); White Blood Count 7.5 10^3/uL (3.5-10.8)
[2021-07-11 05:55] LABS: Calcium 7.8 mg/dL (8.6-10.3); Potassium 3.7 mmol/L (3.5-5.0); eGFR CKD-EPI 92.2 (>60)
[2021-07-11] MEDS: Polyethylene Glycol 3350 17 GM PACKET PO PRN (08:20)
[2021-07-11] MEDS: CMCS:Nebivolol 2.5 mg TAB (NF) PO SCH (21:25)
[2021-07-11] MEDS: CMCS: Lovastatin 10 mg TAB (NF) PO SCH (21:25)
[2021-07-11] MEDS: Enoxaparin 40 MG/0.4 ML SYR SUBCUT SCH (21:26)
[2021-07-12] MEDS: Oxacillin 2 GM in NS 0.9% 100 ml BAG 100 ML IVPB SCH ×6 (00:08→22:18)
[2021-07-12] MEDS ORDERED: Oxacillin 2 GM in NS 0.9% 100 ml BAG 100 ML IVPB SCH (14:00)
[2021-07-12] MEDS: Enoxaparin 40 MG/0.4 ML SYR SUBCUT SCH (20:41)
[2021-07-12] MEDS: CMCS:Nebivolol 2.5 mg TAB (NF) PO SCH (20:41)
[2021-07-12] MEDS: CMCS: Lovastatin 10 mg TAB (NF) PO SCH (20:41)
[2021-07-13] MEDS: Oxacillin 2 GM in NS 0.9% 100 ml BAG 100 ML IVPB SCH ×4 (01:55→14:43)
[2021-07-13 11:29] LABS: ABS Eosinophils 0.2 10^3/ul (0-0.6); ABS Lymphocytes 0.7 10^3/ul (1.0-4.8); ABS Monocytes 0.5 10^3/ul (0-0.8); ABS Neutrophils 4.2 10^3/ul (1.5-7.7); Eosinophil % 3.5 %; Hematocrit 25 % (42-52); Hemoglobin 7.9 g/dL (14.0-18.0); Lymphocyte % 11.9 %; Mean Corpuscular HGB Conc 32 g/dL (31-36); Mean Corpuscular Hemoglobin 27 pg (27-31); Mean Corpuscular Volume 85 fL (80-94); Mean Platelet Volume 7.6 fL (7.4-10.4); Nucleated Red Blood Cells % 0.1; Platelet Count 227 10^3/uL (150-450); Red Blood Count 2.95 10^6 /uL (4.18-5.48); Red Cell Distribution Width 18 % (10-15); White Blood Count 5.6 10^3/uL (3.5-10.8)
[2021-07-13 12:01] LABS: Calcium 7.8 mg/dL (8.6-10.3); Potassium 3.4 mmol/L (3.5-5.0); eGFR CKD-EPI 92.5 (>60)
[2021-07-13] MEDS ORDERED: Vancomycin 1,500 MG in NS 0.9% 250 ml 250 ML IVPB ONE (18:30)
[2021-07-13] MEDS: CMCS:Nebivolol 2.5 mg TAB (NF) PO SCH (20:42)
[2021-07-13] MEDS: CMCS: Lovastatin 10 mg TAB (NF) PO SCH (20:42)
[2021-07-13] MEDS: Enoxaparin 40 MG/0.4 ML SYR SUBCUT SCH (20:42)
[2021-07-14] MEDS: Oxacillin 2 GM in NS 0.9% 100 ML BAG IVPB SCH ×4 (11:39→21:54)
[2021-07-14] MEDS: CMCS: Lovastatin 10 mg TAB (NF) PO SCH (21:17)
[2021-07-14] MEDS: CMCS:Nebivolol 2.5 mg TAB (NF) PO SCH (21:17)
[2021-07-14] MEDS: Enoxaparin 40 MG/0.4 ML SYR SUBCUT SCH (21:19)
[2021-07-15] MEDS: Oxacillin 2 GM in NS 0.9% 100 ML BAG IVPB SCH ×3 (02:40→11:12)
[2021-07-15 11:31] VITALS: BP 163/72
== END 2021-07-15 14:25 | disposition home health service (06) | DRG 467 ==
LOC: ED 11:08 → SUATTDRO 07-03 18:11 → SSU 07-03 18:11
PROVIDERS: ADMIT Internal Medicine; ATTEND Internal Medicine

== ENCOUNTER 2023-11-25 13:13 | Observation (INO) ==
[2023-11-25 13:44] LABS: ABS Eosinophils 0.2 10^3/uL (0.0-0.5); ABS Lymphocytes 1.2 10^3/uL (1.0-4.8); ABS Monocytes 0.9 10^3/uL (0.0-1.1); ABS Neutrophils 5.3 10^3/uL (1.5-7.6); Eosinophil % 3.2 %; Hematocrit 41.8 % (38-53); Hemoglobin 14.4 g/dL (13.2-16.3); Lymphocyte % 15.1 %; Mean Corpuscular Hemoglobin 32.4 pg (27-33); Mean Corpuscular Hgb Conc 34.6 g/dL (31-36); Mean Corpuscular Volume 93.6 fL (80-97); Platelet Count 167 10^3/uL (150-450); Red Blood Count 4.46 10^6/uL (4.06-5.63); Red Cell Distribution Width 13.9 % (12-17); White Blood Count 7.6 10^3/uL (3.6-10.2)
[2023-11-25 13:58] LABS: INR 1.09 (0.85-1.14)
[2023-11-25 14:32] LABS: Albumin 4.3 g/dL (3.2-5.2); Albumin/Globulin Ratio 1.8 (1-3); Calcium 9.2 mg/dL (8.6-10.3); Creatinine, Serum 1.11 mg/dL (0.67-1.17); Globulin 2.4 g/dL (2-4); Potassium 3.8 mmol/L (3.5-5.0); Total Bilirubin 0.8 mg/dL (0.2-1.0); Total Protein 6.7 g/dL (6.4-8.9); eGFR CKD-EPI 66.7 (>60)
[2023-11-25] MEDS: Iohexol 350 (CONTRAST) 500 ML MDV IV ONE (15:08)
[2023-11-25 15:29] LABS: High Sensitivity Troponin 1 Hr 7 pg/mL (<20)
[2023-11-25] MEDS: Lactated Ringers 1000 ml BAG 1,000 ML IV SCH (16:55)
[2023-11-25] MEDS: CMCS: Nebivolol 2.5 mg TAB (NF) PO SCH (20:20)
[2023-11-25] MEDS: Enoxaparin 40 MG/0.4 ML SYR SUBCUT SCH (20:52)
[2023-11-26 02:36] LABS: Osmolality Serum 274 mOsm/kg (275-295)
[2023-11-26 02:42] LABS: Urine Osmo 447 mOsm/kg (150-1150)
[2023-11-26 06:00] LABS: ABS Eosinophils 0.2 10^3/uL (0.0-0.5); ABS Lymphocytes 0.9 10^3/uL (1.0-4.8); ABS Monocytes 0.7 10^3/uL (0.0-1.1); ABS Neutrophils 4.9 10^3/uL (1.5-7.6); Hematocrit 40.3 % (38-53); Hemoglobin 14.2 g/dL (13.2-16.3); Lymphocyte % 14.1 %; Mean Corpuscular Hemoglobin 32.9 pg (27-33); Mean Corpuscular Hgb Conc 35.1 g/dL (31-36); Mean Corpuscular Volume 93.7 fL (80-97); Mean Platelet Volume 7.4 fL (7.5-11.2); Platelet Count 143 10^3/uL (150-450); Red Blood Count 4.31 10^6/uL (4.06-5.63); Red Cell Distribution Width 14.1 % (12-17); White Blood Count 6.7 10^3/uL (3.6-10.2)
[2023-11-26 06:29] LABS: Calcium 8.9 mg/dL (8.6-10.3); Creatinine, Serum 0.82 mg/dL (0.67-1.17); Magnesium 1.7 mg/dL (1.9-2.7); Phosphorus 3.6 mg/dL (2.5-5.0); Potassium 3.8 mmol/L (3.5-5.0); eGFR CKD-EPI 88.2 (>60)
[2023-11-26 10:16] LABS: TSH Ultra Thyroid Stim Horm 1.81 mcIU/mL (0.34-5.60)
[2023-11-26] MEDS: Sulfur Hexaflouride MICROSPHR 25 MG VIAL IV PRN (10:31)
[2023-11-26] MEDS: Magnesium Sulfate 2 gm BAG 2 GM/50 ML BAG IVPB ONE (12:36)
[2023-11-26 13:16] VITALS: BP 103/61
[2023-11-29 13:36] LABS: Anaplasma phagocytophilum Negative (Negative); B. miyamotoi PCR, B Negative (Negative); Babesia divergens/MO-1 Negative (Negative); Babesia ducani Negative (Negative); Ehrlichia chaffeensis Negative (Negative); Ehrlichia ewingii/canis Negative (Negative); Ehrlichia muris eauclairensis Negative (Negative)
== END 2023-11-26 15:27 | disposition home or self-care (01) ==
LOC: ED 13:13 → EDHOLD 13:13 → MEDTELE 17:28
PROVIDERS: ADMIT Hospitalist; ATTEND Hospitalist